=== PATIENT | female | born 1975 | race Caucasian/White ===

== ENCOUNTER 2023-04-09 16:47 | Emergency (ER) | payer OTHER, SELFPAY ==
[2023-04-09] VITALS (48 sets, daily range): BP systolic 133–218; BP diastolic 89–125; PULSE 84–117; RESP 12–23; TEMP 36.8; O2SAT 80–98; BMI 31.6
--- NOTE | 2023-04-09 16:55 | ECG_ITS ---
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
--- NOTE | 2023-04-09 16:56 | ED_ITS ---
Documented by User: BRITTANY Mcclellan 04/09/23 21:28 HPI - Chest Pain General Chief Complaint: Chest Pain Stated Complaint: CHEST PAIN Time Seen by Provider: 04/09/23 16:48 Related Data Home Medications Medication Instructions Recorded Confirmed ibuprofen 200 mg tablet (Advil) 200 mg PO Q8H PRN fever or pain 04/09/23 04/09/23 metformin 500 mg tablet,extended 500 mg PO BID 04/09/23 04/09/23 release 24 hr Allergies Allergy/AdvReac Type Severity Reaction Status Date / Time No Known Drug Allergies Allergy Verified 04/09/23 16:58 PFSH PFS Social History Smoking status: Current every day smoker Exam Constitutional Vital Signs, click to edit/add: Last Vital Signs Temp 98.3 F 04/09/23 16:59 Pulse 98 H 04/10/23 02:40 Resp 14 04/10/23 02:00 BP 159/94 H 04/10/23 02:30 Pulse Ox 85 L 04/10/23 02:40 O2 Del Method Room Air 04/09/23 16:59 Course Vital Signs Vital signs: Vital Signs Pulse Oximetry 85 L 04/09/23 16:51 Temperature 98.3 F 04/09/23 16:59 Pulse Rate 98 H 04/10/23 02:40 Respiratory Rate 14 04/10/23 02:00 Blood Pressure 159/94 H 04/10/23 02:30 Pulse Oximetry 85 L 04/10/23 02:40 Oxygen Delivery Method Room Air 04/09/23 16:59 MDM - Chest Pain MDM Narrative Medical decision making narrative: patient was given aspirin, nitroglycerin. She reports improvement of the chest pain but continues to have bilateral jaw pain. Her blood pressure improved with nitroglycerin. Lab studies show the patient has normal kidney function, normal blood counts but elevated troponin at 248. BNP is also elevated although the patient has no clinical history concerning for congestive heart failure exacerbation. I discussed these abnormal results with the patient and her daughter at bedside, discussed the need for transfer to tertiary care facility with cardiology available, patient would like to go to [facility]. Heparin drip started for non-STEMI. we contacted [facility], the nursing supervisor [employer] states they were on a bed wait list, they will not connect us with the hospitalist for an acceptance until a bed is potentially available. I discussed this with the patient and she would still like to pursue a transfer to [facility] even if it means waiting for a bed until the morning. She understands this. She does not wish to be transferred to [place] or [place]. Her blood pressure improved in the Emergency Room, she was given additional labetalol for blood pressure control, she had no significant chest pain in the Emergency Room. Repeat troponin is stable with no significant elevation. At this time, the patient will be kept on a heparin drip and provided with pain and blood pressure control until a bed becomes available at [facility] and we can speak with hospitalist for acceptance. Medical Records Data Attestation: I reviewed the patient's medical records. Lab Data Attestation: I reviewed the patient's lab results. Labs: Lab Results 04/09/23 04/09/23 04/10/23 Range/Units 17:00 19:44 03:45 WBC 10.0 (4.0-11.0) 10^3/uL RBC 4.26 (4.20-5.40) 10^6/uL Hgb 13.3 (12.0-16.0) g/dL Hct 39.2 (36.0-48.0) % MCV 92.0 (81.0-99.0) fL MCH 31.2 (26.7-34.0) pg MCHC 33.9 (29.9-35.2) g/dL RDW 13.6 (11.0-15.0) % Plt Count 259 (150-450) 10^3/uL MPV 10.6 (9.5-13.5) fL Neut % (Auto) 57.0 (43.0-75.0) % Lymph % (Auto) 37.0 (20.5-60.0) % [place] % (Auto) 4.4 (1.7-12.0) % Eos % (Auto) 0.9 (0.9-7.0) % Baso % (Auto) 0.4 (0.2-2.0) % Neut # (Auto) 5.7 (1.4-6.5) 10^3/uL Lymph # (Auto) 3.7 (1.2-3.8) 10^3/uL [place] # (Auto) 0.4 (0.3-0.8) 10^3/uL Eos # (Auto) 0.1 (0.0-0.7) 10^3/uL Baso # (Auto) 0.0 (0.0-0.1) 10^3/uL Abs Immat Gran (auto) 0.03 (0.00-0.03) 10^3/uL Imm/Tot Granulo (auto) 0.3 (0.0-0.5) % PT 10.0 (9.0-11.6) sec INR 0.94 APTT 27.3 (22.3-36.2) sec PTT (Heparin Absorb) 29.2 L* (48.2-68.6) sec D-Dimer <0.19 (<=0.59) mg/L FEU Sodium 134 L (136-145) mmol/L Potassium 3.6 (3.5-5.1) mmol/L Chloride 99 (98-107) mmol/L Carbon Dioxide 27.1 (21.0-32.0) mmol/L Anion Gap 11.5 BUN 18.0 (7.0-18.0) mg/dL Creatinine 0.83 (0.55-1.02) mg/dL Est GFR ( Amer) >60 (>=60) Est GFR (Non-Af Amer) >60 (>=60) BUN/Creatinine Ratio 21.7 Glucose 252 H (74-106) mg/dL Calcium 8.9 (8.5-10.1) mg/dL Total Bilirubin 0.7 (0.2-1.0) mg/dL AST 35 (15-37) U/L ALT 48 (14-59) U/L Alkaline Phosphatase 115 (46-116) U/L Total Creatine Kinase 46 (26-192) U/L CK-MB (CK-2) 1.23 (<=3.60) ng/mL Troponin I High Sens 248.8 H* 256.3 H* (4.0-51.3) pg/mL NT-Pro-B Natriuret Pep 1327.0 H* (<=450.0) pg/mL Total Protein 7.7 (6.4-8.2) g/dL Albumin 3.7 (3.4-5.0) g/dL Globulin 4.0 g/dL Albumin/Globulin Ratio 0.9 Imaging Data Chest x-ray: Attestation: I have reviewed the pertinent imaging results. Radiologist's impression: Procedure: XR chest 1V EXAM: XR chest 1V HISTORY: Chest pain. COMPARISON: PA and lateral views of the chest dated 10/27/2018. TECHNIQUE: AP erect portable chest radiograph. FINDINGS: The trachea is midline. There is mild prominence of the cardiac silhouette. The hilar shadows are stable and unremarkable. There is mild discoid atelectasis within the left lower chest. There is no consolidation or infiltrate. There is no pleural effusion or pulmonary vascular congestion. There is no pneumothorax or osseous abnormality. IMPRESSION: Mild enlargement of the cardiac silhouette. Mild discoid atelectasis within the left lower chest. Electronically authenticated by: JOSE LAGOS Date: 04/09/2023 18:07 ECG Data Attestation: I personally reviewed and interpreted this ECG as follows: (sinus tachycardia with no acute ST elevation or ectopy. EKG reviewed by attending physician) Heart Score History: Moderately Suspicious ECG: Normal Age: >45-<65 years Risk Factors: >3 Risk Factors/ HX of CAD:2 Troponin: >3X Normal Limit Total Heart Score Recommendations & Risks:: 6 Critical Care Time Critical Care Time Total Critical Care Time: 35 Discharge Plan Discharge Chief Complaint: Chest Pain Clinical Impression: Non-ST elevated myocardial infarction (non-STEMI), Chest pain, Hypertensive urgency Patient Disposition: [facility] Time of Disposition Decision: 21:28 Discharge Location: [facility] Mode of Transportation: EMS Documented by User: Edna Maki MD 04/10/23 04:21 HPI - Chest Pain General Chief Complaint: Chest Pain Stated Complaint: CHEST PAIN Time Seen by Provider: 04/09/23 16:48 History of Present Illness HPI narrative: This 47-year-old female with a history of diabetes, hyperlipidemia, hypertension and tobacco use who is moderately overweight was evaluated in the emergency department for 3 days of jaw pain and eventual chest pain. 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 She was sent to the emergency department for evaluation. Upon arrival an EKG was performed that was a sinus tachycardia at [address] changes. An IV was placed and routine cardiac labs ordered. The patient was noted to have an elevated troponin. She was medicated with aspirin, one nitroglycerin and 40 mg of IV labetalol for her elevated blood pressure. At one point she complained of ongoing chest pain was given 4 mg of morphine and Zofran. She has remained in the emergency department overnight awaiting transfer arrangements at [facility], where she requested to be transferred to. She is currently on a heparin drip and has remained chest pain-free throughout the night. The case was discussed with Dr. Hall, hospitalist at [facility] and she is accepted for transfer. Related Data Home Medications Medication Instructions Recorded Confirmed ibuprofen 200 mg tablet (Advil) 200 mg PO Q8H PRN fever or pain 04/09/23 04/09/23 metformin 500 mg tablet,extended 500 mg PO BID 04/09/23 04/09/23 release 24 hr Allergies Allergy/AdvReac Type Severity Reaction Status Date / Time No Known Drug Allergies Allergy Verified 04/09/23 16:58 PFSH PFSH Social History Smoking status: Current every day smoker Exam Constitutional Vital Signs, click to edit/add: Last Vital Signs Temp 98.3 F 04/09/23 16:59 Pulse 98 H 04/10/23 02:40 Resp 14 04/10/23 02:00 BP 159/94 H 04/10/23 02:30 Pulse Ox 85 L 04/10/23 02:40 O2 Del Method Room Air 04/09/23 16:59 Course Vital Signs Vital signs: Vital Signs Pulse Oximetry 85 L 04/09/23 16:51 Temperature 98.3 F 04/09/23 16:59 Pulse Rate 98 H 04/10/23 02:40 Respiratory Rate 14 04/10/23 02:00 Blood Pressure 159/94 H 04/10/23 02:30 Pulse Oximetry 85 L 04/10/23 02:40 Oxygen Delivery Method Room Air 04/09/23 16:59 MDM - Chest Pain Lab Data Labs: Lab Results 04/09/23 04/09/23 04/10/23 Range/Units 17:00 19:44 03:45 WBC 10.0 (4.0-11.0) 10^3/uL RBC 4.26 (4.20-5.40) 10^6/uL Hgb 13.3 (12.0-16.0) g/dL Hct 39.2 (36.0-48.0) % MCV 92.0 (81.0-99.0) fL MCH 31.2 (26.7-34.0) pg MCHC 33.9 (29.9-35.2) g/dL RDW 13.6 (11.0-15.0) % Plt Count 259 (150-450) 10^3/uL MPV 10.6 (9.5-13.5) fL Neut % (Auto) 57.0 (43.0-75.0) % Lymph % (Auto) 37.0 (20.5-60.0) % [place] % (Auto) 4.4 (1.7-12.0) % Eos % (Auto) 0.9 (0.9-7.0) % Baso % (Auto) 0.4 (0.2-2.0) % Neut # (Auto) 5.7 (1.4-6.5) 10^3/uL Lymph # (Auto) 3.7 (1.2-3.8) 10^3/uL [place] # (Auto) 0.4 (0.3-0.8) 10^3/uL Eos # (Auto) 0.1 (0.0-0.7) 10^3/uL Baso # (Auto) 0.0 (0.0-0.1) 10^3/uL Abs Immat Gran (auto) 0.03 (0.00-0.03) 10^3/uL Imm/Tot Granulo (auto) 0.3 (0.0-0.5) % PT 10.0 (9.0-11.6) sec INR 0.94 APTT 27.3 (22.3-36.2) sec PTT (Heparin Absorb) 29.2 L* (48.2-68.6) sec D-Dimer <0.19 (<=0.59) mg/L FEU Sodium 134 L (136-145) mmol/L Potassium 3.6 (3.5-5.1) mmol/L Chloride 99 (98-107) mmol/L Carbon Dioxide 27.1 (21.0-32.0) mmol/L Anion Gap 11.5 BUN 18.0 (7.0-18.0) mg/dL Creatinine 0.83 (0.55-1.02) mg/dL Est GFR ( Amer) >60 (>=60) Est GFR (Non-Af Amer) >60 (>=60) BUN/Creatinine Ratio 21.7 Glucose 252 H (74-106) mg/dL Calcium 8.9 (8.5-10.1) mg/dL Total Bilirubin 0.7 (0.2-1.0) mg/dL AST 35 (15-37) U/L ALT 48 (14-59) U/L Alkaline Phosphatase 115 (46-116) U/L Total Creatine Kinase 46 (26-192) U/L CK-MB (CK-2) 1.23 (<=3.60) ng/mL Troponin I High Sens 248.8 H* 256.3 H* (4.0-51.3) pg/mL NT-Pro-B Natriuret Pep 1327.0 H* (<=450.0) pg/mL Total Protein 7.7 (6.4-8.2) g/dL Albumin 3.7 (3.4-5.0) g/dL Globulin 4.0 g/dL Albumin/Globulin Ratio 0.9 Heart Score Total Heart Score Recommendations & Risks:: 6 Discharge Plan Discharge Chief Complaint: Chest Pain Clinical Impression: Non-ST elevated myocardial infarction (non-STEMI), Chest pain, Hypertensive urgency Patient Disposition: [facility] Time of Disposition Decision: 21:28 Discharge Location: [facility] Mode of Transportation: EMS
[2023-04-09 17:09] LABS: Basophils Percent Auto 0.4 % (0.2-2.0); Eosinophils Absolute Auto 0.1 10^3/uL (0.0-0.7); Eosinophils Percent Auto 0.9 % (0.9-7.0); Hematocrit 39.2 % (36.0-48.0); Hemoglobin 13.3 g/dL (12.0-16.0); Immature Granulocytes Abs Auto 0.03 10^3/uL (0.00-0.03); Immature Granulocytes Pct Auto 0.3 % (0.0-0.5); Lymphocytes Absolute Auto 3.7 10^3/uL (1.2-3.8); Mean Corpuscular HGB Conc 33.9 g/dL (29.9-35.2); Mean Corpuscular Hemoglobin 31.2 pg (26.7-34.0); Mean Platelet Volume 10.6 fL (9.5-13.5); Monocytes Absolute Auto 0.4 10^3/uL (0.3-0.8); Monocytes Percent Auto 4.4 % (1.7-12.0); Neutrophils Absolute Auto 5.7 10^3/uL (1.4-6.5); Platelet Count 259 10^3/uL (150-450); Red Blood Count 4.26 10^6/uL (4.20-5.40); Red Cell Distribution Width 13.6 % (11.0-15.0)
[2023-04-09] MEDS: ASPIRIN 81 MG TAB.CHEW 162 MG PO (17:16)
[2023-04-09] MEDS: NITROGLYCERIN 0.4 MG BOTTLE PO (17:16)
[2023-04-09] MEDS: 0.9 % SODIUM CHLORIDE 1,000 ML 1000 ML IV (17:16)
[2023-04-09 17:25] LABS: INR 0.94; Partial Thromboplastin Time 27.3 sec (22.3-36.2)
[2023-04-09 17:26] LABS: D Dimer <0.19 mg/L FEU (<=0.59)
[2023-04-09] MEDS: ONDANSETRON PF 4 MG/2 ML VIAL IV ×2 (17:29→22:36)
[2023-04-09 17:30] LABS: Alanine Aminotransferase 48 U/L (14-59); Albumin Globulin Ratio 0.9; Albumin Level 3.7 g/dL (3.4-5.0); Alkaline Phosphatase 115 U/L (46-116); Anion Gap 11.5; Aspartate Amino Transferase 35 U/L (15-37); BUN Creatinine Ratio 21.7; Bilirubin Total 0.7 mg/dL (0.2-1.0); Calcium 8.9 mg/dL (8.5-10.1); Carbon Dioxide 27.1 mmol/L (21.0-32.0); Chloride 99 mmol/L (98-107); Estimated GFR (African America >60 (>=60); Estimated GFR (Non-African Ame >60 (>=60); Glucose 252 mg/dL (74-106); Potassium 3.6 mmol/L (3.5-5.1); Sodium 134 mmol/L (136-145); Total Protein 7.7 g/dL (6.4-8.2)
--- NOTE | 2023-04-09 17:34 | XR_ITS ---
The [address] [address] Patient Name: MIKAYLA TERRY MRN: [id number] date: 1975 Sex: F Assigned Patient Location: ER Current Patient Location: ER Accession/Order Number: [id number] Exam Date: 04/09/2023 17:50 Report Date: 04/09/2023 18:07 At the request of: LASHAY GIFFORD Procedure: XR chest 1V EXAM: XR chest 1V HISTORY: Chest pain. COMPARISON: PA and lateral views of the chest dated 10/27/2018. TECHNIQUE: AP erect portable chest radiograph. FINDINGS: The trachea is midline. There is mild prominence of the cardiac silhouette. The hilar shadows are stable and unremarkable. There is mild discoid atelectasis within the left lower chest. There is no consolidation or infiltrate. There is no pleural effusion or pulmonary vascular congestion. There is no pneumothorax or osseous abnormality. XR/XR chest 1V IMPRESSION: Mild enlargement of the cardiac silhouette. Mild discoid atelectasis within the left lower chest. Electronically authenticated by: JOSE LAGOS Date: 04/09/2023 18:07
[2023-04-09 17:35] LABS: Troponin I High Sensitivity 248.8 pg/mL (4.0-51.3)
[2023-04-09] MEDS: HEPARIN SODIUM,PORCINE/D5W 25,000 UNIT/500 ML IV.SOLN 20.684 UNIT IV (17:54)
[2023-04-09] MEDS: LABETALOL HCL 20 MG/4 ML SYRINGE IVP (19:45)
[2023-04-09 20:16] LABS: Creatine Kinase 46 U/L (26-192); Creatine Kinase MB 1.23 ng/mL (<=3.60)
[2023-04-09 20:17] LABS: Troponin I High Sensitivity 256.3 pg/mL (4.0-51.3)
[2023-04-09] MEDS: MORPHINE SULFATE 4 MG/ML VIAL IV (22:36)
[2023-04-10] VITALS (55 sets, daily range): BP systolic 141–181; BP diastolic 91–123; PULSE 89–106; RESP 6–21; O2SAT 70–98
[2023-04-10 04:11] LABS: PTT Heparin Monitor 29.2 sec (48.2-68.6)
== END 2023-04-10 09:32 | disposition short-term general hospital (02) ==
PROVIDERS: Physician Assistant; Emergency Provider Emergency Medicine
DX: I21.4 Non-ST elevation (NSTEMI) myocardial infarction (principal); R07.9 Chest pain, unspecified; I16.0 Hypertensive urgency; Z79.899 Other long term (current) drug therapy; Z79.84 Long term (current) use of oral hypoglycemic drugs; F17.210 Nicotine dependence, cigarettes, uncomplicated
CPT/HCPCS: 36415; 71045; 80053; 82550; 82553; 83880; 84484; 85025; 85378; 85610; 85730; 93005; 96365; 96366; 96375; 96376; 99285

== ENCOUNTER 2023-05-03 10:32 | Outpatient (OUT) | payer OTHER, SELFPAY ==
[2023-05-03 11:39] LABS: Free T4 0.94 ng/dL (0.76-1.46)
[2023-05-03 11:54] LABS: Estimated Average Glucose 206 mg/dL; Glycohemoglobin A1C 8.8 % (4.5-6.2)
[2023-05-03 12:03] LABS: Thyroid Stimulating Hormone 2.207 uIU/mL (0.358-3.740)
== END 2023-05-03 10:33 | disposition home or self-care (01) ==
PROVIDERS: PCP Nurse Practitioner; Visit Provider Nurse Practitioner
DX: E03.9 Hypothyroidism, unspecified (principal); E11.8 Type 2 diabetes mellitus with unspecified complications
CPT/HCPCS: 36415; 83036; 84439; 84443

== ENCOUNTER 2023-05-31 07:04 | Outpatient (RCR) | payer OTHER, SELFPAY ==
--- NOTE | 2023-05-24 11:42 | CR1_ITS ---
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
== END 2023-05-31 17:05 | disposition home or self-care (01) ==
LOC: CR 07:04
PROVIDERS: PCP Nurse Practitioner
DX: Z98.61 Coronary angioplasty status (principal); I25.5 Ischemic cardiomyopathy; I25.2 Old myocardial infarction
CPT/HCPCS: 93798

== ENCOUNTER 2023-07-06 10:18 | Outpatient (OUT) | payer OTHER, SELFPAY ==
--- OUTSIDE RECORDS SUMMARY | 2023-07-06 10:22 | XMS_ITS | CCD ---
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 Name Role Phone DR SHILPA LEWIS Admitting Unavailable DR SHILPA LEWIS Attending Unavailable DR SHILPA LEWIS Primary Care Unavailable DR SHILPA LEWIS Consulting Unavailable MD Shilpa Lewis Primary Care Provider [phone] MD Florentino Kenyon Admit Provider MD Florentino Kenyon Attending Provider [phone] Stephanie Sweet Unavailable Florentino Kenyon Attending Unavailable Shilpa Lewis Primary Care Unavailable Stephanie Sweet Consulting Unavailable Florentino Kenyon Admitting Unavailable Medications Current Medications Medication Drug Class(es) Dates Sig (Normalized) Sig (Original) aspirin 81 mg delayed release oral tablet (5 sources) Platelet Aggregation Inhibitor, Nonsteroidal Anti-inflammatory Drug Start: 04-12-2023 take 81 mg by mouth once daily Aspirin Active 81 MG PO Daily April 12, 2023 12:00am atorvastatin 80 mg oral tablet (5 sources) HMG-CoA Reductase Inhibitor Start: 04-12-2023 take 80 mg by mouth once daily in the evening Atorvastatin Active 80 MG PO Every evening April 12, 2023 12:00am busPIRone hydrochloride 5 mg oral tablet (4 sources) take 1 tablet by mouth every twelve hours busPIRone HCl 5 MG 1 tablet Orally Twice a day Active carvedilol 6.25 mg oral tablet (5 sources) alpha-Adrenergic Raina, beta-Adrenergic Raina Start: 04-12-2023 take 6.25 mg by mouth twice daily at mealtime Carvedilol Active 6.25 MG PO Twice daily with meals April 12, 2023 12:00am 24 hr isosorbide mononitrate 30 mg extended release oral tablet (4 sources) Nitrate Vasodilator Start: 05-01-2023 take 1 tablet by mouth every twenty-four hours Isosorbide Mononitrate ER 30 MG 1 tablet in the morning Orally Once a day for 90 days Apr, Active losartan potassium 25 mg oral tablet (5 sources) Angiotensin 2 Receptor Raina Start: 05-08-2023 take 1 tablet by mouth every twenty-four hours Losartan Potassium 25 MG 1 tablet Orally Once a day for 30 days May, Active Start: 04-12-2023 take 50 mg by mouth once daily in the morning Losartan Active 50 MG PO Every morning April 12, 2023 12:00am 24 hr metFORMIN hydrochloride 500 mg extended release oral tablet (5 sources) Biguanide Start: 04-10-2023 take 500 mg by mouth twice daily Metformin Active 500 MG PO Twice daily April 10, 2023 12:00am Start: 04-02-2022 take 1 tablet by juan m th twice daily Metformin 500mg metFORMIN 500mg, 1 (one) Tablet two times daily # 180, 04/02/2022, Ref. x3. Active oral two times daily for 0 *Reorder from [employer] for eRx and Interaction Alerts* Mar, Active nitroglycerin 0.4 mg sublingual tablet (5 sources) Nitrate Vasodilator Start: 04-12-2023 Nitroglyce rin Active 0.4 MG SUBLINGUAL Q5M April 12, 2023 12:00am do not exceed 3 doses per episode Nitroglycerin 0. 4 MG as directed Sublingual Active spironolactone 25 mg oral tablet (5 sources) Aldosterone Antagonist Start: 04-12-2023 take 25 mg by mouth once daily Spironolactone Active 25 MG PO Daily April 12, 2023 12:00am ticagrelor 90 mg oral tablet (5 sources) Start: 04-12-2023 take 1 tablet by mouth twice daily Ticagrelor (Brilinta) 90 mg Tablet Active 90 MG PO Twice daily April 12, 2023 12:00am Completed/Discontinued Medications Medication Drug Class(es) Dates Sig (Normalized) Sig (Original) amoxicillin 875 mg / clavulanate 125 mg oral tablet (4 sources) Penicillin-class Antibacterial Start: 03-12-2022 take 1 tablet by mouth twice daily as needed Amoxicillin-Pot Clavulanate 875-125 MG amoxicillin-pot clavulanate 875-125mg, 1 (one) Tablet two times daily # 20, 03/12/2022, No Refill. Active Oral two times daily for 0 Mar, Not-Taking/PRN levothyroxine (4 sources) l-Thyroxine Start: 05-09-2022 take 1 tablet by mouth once daily as needed Levothyroxine 75mcg levothyroxine 75mcg, 1 (one) Tablet daily # 90, 05/09/2022, No Refill. Active oral daily for 0 *Reorder from Med[employer]pan for eRx and Interaction Alerts* May, Not-Taking/PRN Start: 05-09-2022 take 1 tablet by juan m th once daily Levothyroxine 75mcg levothyroxine 75mcg, 1 (one) Tablet daily # 90, 05/09/2022, No Refill. Active oral daily for 0 *Reorder from Med[employer]pan for eRx and Interaction Alerts* May, Not-Taking Problems Active Problems Problem Classification Problem Date Documented Da te Episodic/Chronic Acute myocardial infarction (3 sources) Myocardial infarction; Translations: [Non-ST elevation (NSTEMI) myocardial infarction] Onset: 04-10-2023 04-10-2023 Chronic Anxiety disorders (4 sources) Anxiety state; Translations: [Anxiety state, unspecified] Onset: 11-19-2018 Chronic Congestive heart failure; nonhypertensive (4 sources) Systolic heart failure; Translations: [Unspecified systolic (congestive) heart failure] Chronic Coronary atherosclerosis and other heart disease (11 sources) History of non-ST segment elevation myocardial infarction; Translations: [Old myocardial infarction] Chronic Coronary atherosclerosis and other heart disease (5 sources) Patient post percutaneous transluminal coronary angioplasty; Translations: [Coronary angioplasty status] Episodic Diabetes mellitus with complications (5 sources) Type 2 diabetes mellitus with hyperglycemia; Translations: [Hyperglycemia due to type 2 diabetes mellitus] Onset: 01-07-2022 Chronic Diabetes mellitus without complication (7 sources) Type 2 diabetes mellitus; Translations: [Type 2 diabetes mellitus without complications] Onset: 08-16-2017 04-10-2023 Chronic Diseases of mouth; excluding dental (4 sources) Recurrent aphthous stomatitis; Translations: [Recurrent oral aphthae] Episodic Disorders of lipid metabolism (7 sources) Hyperlipidemia; Translations: [Hyperlipidemia, unspecified] Onset: 10-19-2015 04-10-2023 Chronic Essential hypertension (3 sources) Hypertensive disorder; Translations: [Essential (primary) hypertension] Onset: 04-10-2023 04-10-2023 Chronic Hemorrhoids (4 sources) Hemorrhoids; Translations: [Unspecified hemorrhoids] Episodic Other circulatory disease (4 sources) Elevated blood-pressure reading without diagnosis of hypertension; Translations: [Elevated blood-pressure reading, without diagnosis of hypertension] Episodic Other connective tissue disease (4 sources) Diastasis of muscle; Translations: [Separation of muscle (nontraumatic), other site] Episodic Other nervous system disorders (4 sources) Pa's palsy; Translations: [Pa's palsy] Episodic Other non-traumatic joint disorders (4 sources) Joint effusion of ankle AND/OR foot; Translations: [Effusion, left ankle] Episodic Other nutritional; endocrine; and metabolic disorders (4 sources) Body mass index 30+ - obesity; Translations: [Body mass index 36.0-36.9, adult] Onset: 08-16-2017 Chronic Other nutritional; endocrine; and metabolic disorders (4 sources) Obese class I; Translations: [Body mass index (BMI) 31.0-31.9, adult] Chronic Other nutritional; endocrine; and metabolic disorders (4 sources) Morbid obesity; Translations: [Morbid (severe) obesity due to excess calories] Onset: 01-15-2018 Chronic Other upper respiratory infections (4 sources) Chronic sinusitis; Translations: [Chronic sinusitis, unspecified] Chronic Ovarian cyst (4 sources) Cyst of right ovary; Translations: [Unspecified ovarian cyst, right side] Episodic Residual codes; unclassified (1 source) Obstructive sleep apnea syndrome; Translations: [Obstructive sleep apnea (adult) (pediatric)] 04-10-2023 Chronic Residual codes; unclassified (2 sources) Obstructive sleep apnea (adult) (pediatric); Translations: [Obstructive sleep apnea (adult)(pediatric)] Onset: 04-10-2023 04-12-2023 Chronic Residual codes; unclassified (1 source) Harmful pattern of use of nicotine; Translations: [Tobacco use] 04-10-2023 Episodic Residual codes; unclassified (2 sources) Tobacco use; Translations: [Tobacco use disorder] Onset: 04-10-2023 04-12-2023 Episodic Thyroid disorders (8 sources) Hypothyroidism, unspecified; Translations: [Hypothyroidism] Onset: 01-04-2022 Chronic Unclassified (4 sources) Acute candidiasis of vulva and vagina; Translations: [Acute candidiasis of vulva and vagina] Viral infection (4 sources) Herpesviral vesicular dermatitis; Translations: [Herpesviral vesicular dermatitis] Episodic Viral infection (4 sources) Disease caused by 2019-nCoV; Translations: [COVID-19] Past or Other Problems Problem Classification Problem Date Documented Date Episodic/Chronic Abdominal pain (4 sources) Epigastric pain; Translations: [Epigastric pain] Onset: 11-27-2017 Episodic Acute and chronic tonsillitis (4 sources) Acute tonsillitis; Translations: [Acute tonsillitis due to other specified organisms] Onset: 01-15-2018 Episodic Bacterial infection; unspecified site (4 sources) Bacterial infectious disease; Translations: [Bacterial infection, unspecified, in conditions classified elsewhere and of unspecified site] Onset: 01-15-2018 Episodic Noninfectious gastroenteritis (4 sources) Non-infective enteritis and colitis; Translations: [Noninfective gastroenteritis and colitis, unspecified] Onset: 08-16-2017 Episodic Other connective tissue disease (4 sources) Pain in limb; Translations: [Pain in left toe(s)] Onset: 10-08-2017 Episodic Other upper respiratory infections (4 sources) Acute maxillary sinusitis; Translations: [Acute recurrent maxillary sinusitis] Onset: 07-26-2016 Episodic Otitis media and related conditions (4 sources) Eustachian tube salpingitis; Translations: [Unspecified Eustachian salpingitis, left ear] Onset: 11-19-2018 Episodic Results Test Name Value Interpretation Reference Range Facility ECG 12 lead ECGon 04-12-2023 ECG 12 lead ECG [facility] [place] [address] Electrocardiograph Report Signed Patient: Mikayla Mitchell MR#: [id number] 93 : 1975 Acct:[id number] Age/Sex: 47 / F ADM Date: 04/10/23 Loc: Room: [address] [place] [address] Type: DIS IN Attending Dr: Florentino Kenyon MD Ordering Provider: W Carlos Irish, DO Date of Service: 04/12/2303/25/500 ECG/ECG 12 lead ECG: Post Angioplasty Procedure in AM Copies to: Test Reason : Blood Pressure : / mmHG Vent. Rate : 086 BPM Atrial Rate : 086 BPM P-R Int : 192 ms QRS Dur : 106 ms QT Int : 410 ms P-R-T Axes : 059 079 113 degrees QTc Int : 490 ms Normal sinus rhythm Poor anterior R wave progression T wave abnormality, consider lateral ischemia Prolonged QT Abnormal ECG When compared with ECG of 10-APR-2023 11:53, No significant change was found Confirmed by DARRYL KEE MD ([id number]) on 04/12/2023 10:17:27 PM Referred By: Electronically Signed By:DARRYL KEE MD Transcribed By: MUS Signed By Darryl Kee MD [id number] [facility] Glucose Glucometer (BldC) [M ass/Vol]Ordered By: Florentino Kenyon on 04-12-2023 Glucose [Mass/Vol] 226 mg/dL [facility] Comment on above: Random Glucose Refer ence Range is dependent on time and content of last meal. Glucose of more than 200 mg/dL in a nonstressed, ambulatory subject supports the diagnosis of Diabetes Mellitus. Glucose Poct Glucometerson 1 06-12-2022 Glucose [Mass/Vol] 226 mg/dL Normal [facility] Comment on above: Result Comment: [place] Glucose Reference Range is dependent on time and content of last meal. Glucose of more than 200 mg/dL in a nonstressed, ambulatory subject supports the diagnosis of Diabetes Mellitus. PERFORMED BY: [facility] [address] [place] [address] PATHOLOGIST COMPREHENSIVE ADVISOR ELPIDIO DUMONT M.D. Performed By: #### G LULS #### Point of Care testing , Glucose [Mass/Vol] 219 mg/dL Normal [facility] Comment on above: Result Comment: [place] Glucose Reference Range is dependent on time and content of last meal. Glucose of more than 200 mg/dL in a nonstressed, ambulatory subject supports the diagnosis of Diabetes Mellitus. PERFORMED BY: [facility] [address] [place] [address] PATHOLOGIST COMPREHENSIVE ADVISOR ELPIDIO DUMONT M.D. Performed By: #### G LULS #### Point of Care testing , Troponin I High Sensitivityo n 04-12-2023 Troponin I High Sensitivity 3417.1 pg/mL Off scale high 0.0-15.0 [facility] Comment on above: Result Comment: Crit ical Result : Called to and read back by: CLAYTON MCCLOUD at: 04/12/2023 06:08:29 by:[id number] PERFORMED BY: [facility] [address] [place] [address] PATHOLOGIST COMPREHENSIVE ADVISOR ELPIDIO DUMONT M.D. Performed By: #### G LULS #### Point of Care testing , Troponin I.cardiac [Mass/vol ume] in Serum or Plasma by Detection limit <= 0.01 ng/Ordered By: Magali Cortez on 04-12-2023 Troponin I.cardiac DL <= 0.01 ng/mL [Mass/Vol] 3417.1 pg/mL 0.0-15.0 [facility] Comment on above: Critical Result : Ca lled to and read back by: CLAYTON MCCLOUD at: 04/12/2023 06:08:29 by:[id number] Activated partial thrombopla stin time (aPTT) in platelet poor plasma by coagulation aOrdered By: Stephanie Sweet on 04-11-2023 aPTT Coag (PPP) [Time] 29.3 s 25.1-36.5 [facility] Comment on above: A hematocrit value g reater than 55% may lead to inaccurate results in coagulation testing. Patients having hematocrit values >55% require a special collection tube for coagulation studies. Please contact the laboratory at [phone] for redraw instructions. Basophils Auto (Bld) [#/Vol] Ordered By: Stephanie Sweet on 04-11-2023 Basophils (Bld) [#/Vol] 0.0 10*3/uL 0.0-0.2 [facility] Basophils/100 WBC Auto (Bld) Ordered By: Stephanie Sweet on 04-11-2023 Basophils/100 WBC (Bld) 0.5 % . [facility] Blood Urea Nitrogenon 2022 Urea nitrogen [Mass/Vol] 11 mg/dL Normal 7-25 [facility] Comment on above: Performed By: #### C VARUN Munguia TROP #### [facility] [address] [id number] [facility] Carbon dioxide, total [Moles /volume] in Serum or PlasmaOrdered By: Stephanie Sweet on 04-11-2023 CO2 [Moles/Vol] 26.7 mmol/L 21.0-31.0 [facility] Chloride [Moles/volume] in S ambika or PlasmaOrdered By: Stephanie Sweet on 04-11-2023 Chloride [Moles/Vol] 101 mmol/L 98-107 [facility] Coagulation Profileon 2022 aPTT Coag (Bld) [Time] 29.3 s Normal 25.1-36.5 [facility] Comment on above: Result Comment: A he matocrit value greater than 55% may lead to inaccurate results in coagulation testing. Patients having hematocrit values >55% require a special collection tube for coagulation studies. Please contact the laboratory at [phone] for redraw instructions. PERFORMED BY: [facility] [address] [place] [address] PATHOLOGIST COMPREHENSIVE ADVISOR ELPIDIO DUMONT M.D. Performed By: #### G EMILIA #### Point of Care testing , INR Coag (PPP) [Relative time] 1.0 {INR} Normal [facility] Comment on above: Result Comment: INR Therapeutic Range A) Pre- and Peroperative OAT started two weeks before surgery. NOT HIP SURGERY: 1.5 - 2.5 HIP SURGERY: 2 - 3 B) Primary and secondary prevention of venous THROMBOSIS: 2 - 3 C) Active venous thrombosis, pulmonary embolism and prevention of recurrent venous thrombosis: 2 - 3 D) Prevention of arterial thromboembolism including patients with mechanical heart valves: 3 - 4.5 Performed By: #### G LULS #### Point of Care testing , PT Coag (PPP) [Time] 12.0 s Normal 9.0-12.9 [facility] Comment on above: Result Comment: A he matocrit value greater than 55% may lead to inaccurate results in coagulation testing. Patients having hematocrit values >55% require a special collection tube for coagulation studies. Please contact the laboratory at [phone] for redraw instructions. Performed By: #### G EMILIA #### Point of Care testing , Complete Blood Count Auto Di ffon 04-11-2023 Basophils (Bld) [#/Vol] 0.0 10*3/uL Normal 0.0-0.2 [facility] Comment on above: Result Comment: PERF ORMED BY: [place] [address] PATHOLOGIST COMPREHENSIVE ADVISOR ELPIDIO DUMONT M.D. Performed By: #### L YTES, CBC, BUN, CREAT #### [facility] [address] [place] [address] Basophils/100 WBC (Bld) 0.5 % Normal . [facility] Comment on above: Performed By: #### L YTES, CBC, BUN, CREAT #### [facility] [address] [place] [address] Eosinophils (Bld) [#/Vol] 0.1 10*3/uL Normal 0.0-0.45 [facility] Comment on above: Performed By: #### L YTES, CBC, BUN, CREAT #### [address] Eosinophils/100 WBC (Bld) 0.9 % Normal . [facility] Comment on above: Performed By: #### L YTES, CBC, BUN, CREAT #### [facility] [address] [place] [address] Erythrocyte distribution width (RBC) [Ratio] 14.5 % Normal 11.9-15.3 [facility] Comment on above: Performed By: #### L YTES, CBC, BUN, CREAT #### [facility] [address] [place] [address] Hematocrit (Bld) [Volume fraction] 35.1 % Normal 34.0-46.4 [facility] Comment on above: Performed By: #### L YTES, CBC, BUN, CREAT #### [address] Hemoglobin (Bld) [Mass/Vol] 11.8 g/dL Normal 11.8-15.4 [facility] Comment on above: Performed By: #### L YTES, CBC, BUN, CREAT #### [address] Lymphocytes (Bld) [#/Vol] 3.0 10*3/uL Normal 1.00-4.8 [facility] Comment on above: Performed By: #### L YTES, CBC, BUN, CREAT #### [address] Lymphocytes/100 WBC (Bld) 33.4 % Normal . [facility] Comment on above: Performed By: #### L YTES, CBC, BUN, CREAT #### [address] MCH (RBC) [Entitic mass] 30.7 pg Normal 24.7-34.3 [facility] Comment on above: Performed By: #### L YTES, CBC, BUN, CREAT #### [address] MCV (RBC) [Entitic vol] 91.1 fL Normal 80-100 [facility] Comment on above: Performed By: #### L YTES, CBC, BUN, CREAT #### [address] Mean Corpuscular HGB Conc 33.7 g/dL Normal 32.0-35.0 [facility] Comment on above: Performed By: #### L YTES, CBC, BUN, CREAT #### [address] Monocytes (Bld) [#/Vol] 0.5 10*3/uL Normal 0.0-0.8 [facility] Comment on above: Performed By: #### L YTES, CBC, BUN, CREAT #### [address] [place] [address] [place] Monocytes/100 WBC (Bld) 5.8 % Normal . [facility] Comment on above: Performed By: #### L YTES, CBC, BUN, CREAT #### [address] Neutrophils (Bld) [#/Vol] 5.3 10*3/uL Normal 1.8-7.7 [facility] Comment on above: Performed By: #### L YTES, CBC, BUN, CREAT #### [address] Neutrophils/100 WBC (Bld) 59.4 % Normal . [facility] Comment on above: Performed By: #### L YTES, CBC, BUN, CREAT #### [address] NRBC% 0.1 /100{WBC} Normal 0-0.5 [facility] Comment on above: Performed By: #### L YTES, CBC, BUN, CREAT #### [address] Platelet mean volume (Bld) [Entitic vol] 9.4 fL Normal 6.3-10.7 [facility] Comment on above: Performed By: #### L YTES, CBC, BUN, CREAT #### [place] [address] [place] Platelets (Bld) [#/Vol] 213 10*3/uL Normal 150-450 [facility] Comment on above: Performed By: #### L YTES, CBC, BUN, CREAT #### [place] [address] [place] RBC (Bld) [#/Vol] 3.85 10*6/uL Normal 3.60-5.00 [facility] [place] [facility] Comment on above: Performed By: #### L YTES, CBC, BUN, CREAT #### [place] [address] [place] WBC (Bld) [#/Vol] 9.0 10*3/uL Normal 3.8-11.6 [facility] Comment on above: Performed By: #### L YTES, CBC, BUN, CREAT #### [facility] [address] [place] [address] [place] Creatine Kinaseon 04-11-2023 CK [Catalytic activity/Vol] 186 U/L Normal [facility] Comment on above: Performed By: #### G LULS #### Point of Care testing , CK [Catalytic activity/Vol] 242 U/L High [facility] Comment on above: Performed By: #### C K, HS TROP #### [facility] [address] [place] [address] Creatine kinase [Enzymatic a ctivity/volume] in Serum or PlasmaOrdered By: Florentino Kenyon on 04-11-2023 CK [Catalytic activity/Vol] 186 U/L [facility] Creatinineon 04-11-2023 Creatinine [Mass/Vol] 0.47 mg/dL Low 0.60-1.20 [facility] Comment on above: Performed By: #### C K, HS TROP #### [facility] [address] [place] [address] [place] Creatinine Clr Calc Pharmacy 166.11 [facility] Comment on above: Result Comment: PERF ORMED BY: [place] [address] PATHOLOGIST COMPREHENSIVE ADVISOR ELPIDIO DUMONT M.D. Performed By: #### C K, HS TROP #### [facility] [address] [place] [address] [place] GFR/1.73 sq M.predicted MDRD (S/P/Bld) [Vol rate/Area] mL/min/{1.73_m2} [facility] Comment on above: Performed By: #### C K, HS TROP #### [facility] [address] [place] [address] [place] Creatinine [Mass/volume] in Serum or PlasmaOrdered By: Stephanie Sweet on 04-11-2023 Creatinine [Mass/Vol] 0.47 mg/dL 0.60-1.20 [facility] ECG 12 lead ECGon 04-11-2023 ECG 12 lead ECG [facility] [place] [address] [place] [address] Electrocardiograph Report Signed Patient: Mikayla Mitchell MR#: [id number] 93 : 1975 Acct:[id number] Age/Sex: 47 / F ADM Date: 04/10/23 Loc: Room: [address] [place] [address] Type: DIS IN Attending Dr: Florentino Kenyon MD Ordering Provider: Magali Cortez DO Date of Service: 04/11/2302/23/1442 ECG/ECG 12 lead ECG: Post Angioplasty Procedure Copies to: Test Reason : Blood Pressure : / mmHG Vent. Rate : 088 BPM Atrial Rate : 088 BPM P-R Int : 206 ms QRS Dur : 102 ms QT Int : 410 ms P-R-T Axes : 050 084 104 degrees QTc Int : 496 ms Normal sinus rhythm lateral T wave inversion Low voltage QRS Poor anterior R wave progression Prolonged QT Abnormal ECG Compared to prior tracing of 10Apr2023, T wave inversion now preent in high lateral leads Confirmed by DARRYL KEE MD ([id number]) on 04/12/2023 8:50:20 PM Referred By: IRISH Electronically Signed By:DARRYL KEE MD Transcribed By: MUS Signed By Darryl Kee MD 2049 Normal [facility] Electrolyteson 04-11-2023 Anion gap [Moles/Vol] 12.1 mmol/L Normal 6.0-15.0 [facility] Comment on above: Performed By: #### C K, HS TROP #### [facility] [address] [place] [address] [place] Chloride [Moles/Vol] 101 mmol/L Normal 98-107 [facility] Comment on above: Performed By: #### C K, HS TROP #### [facility] [address] [id number] [place] CO2 [Moles/Vol] 26.7 mmol/L Normal 21.0-31.0 [facility] Comment on above: Performed By: #### C K, HS TROP #### [facility] [address] [place] [address] [place] Potassium [Moles/Vol] 3.8 mmol/L Normal 3.5-5.1 [facility] Comment on above: Performed By: #### C K, HS TROP #### [facility] [address] [place] [address] [place] Sodium [Moles/Vol] 136 mmol/L Normal 136-145 [facility] Comment on above: Performed By: #### C K, HS TROP #### [facility] [address] [place] [address] [place] Eosinophils Auto (Bld) [#/Vo l]Ordered By: Stephanie Sweet on 04-11-2023 Eosinophils (Bld) [#/Vol] 0.1 10*3/uL 0.0-0.45 [facility] Eosinophils/100 WBC Auto (Bl d)Ordered By: Stephanie Sweet on 04-11-2023 Eosinophils/100 WBC (Bld) 0.9 % . [facility] Erythrocyte distribution wid th Auto (RBC) [Ratio]Ordered By: Stephanie Sweet on 04-11-2023 Erythrocyte distribution width (RBC) [Ratio] 14.5 % 11.9-15.3 [facility] Glucose Poct Glucometerson 1 06-11-2022 Glucose [Mass/Vol] 200 mg/dL Normal [facility] Comment on above: Result Comment: [facility] Glucose Reference Range is dependent on time and content of last meal. Glucose of more than 200 mg/dL in a nonstressed, ambulatory subject supports the diagnosis of Diabetes Mellitus. PERFORMED BY: [facility] [address] [place] [address] PATHOLOGIST COMPREHENSIVE ADVISOR ELPIDIO DUMONT M.D. Performed By: #### Susan NIETO #### Point of Care testing , Commemt1 Glu2: Cleaned Meter Normal [facility] Comment on above: Result Comment: PERF ORMED BY: [facility] [address] [place] [address] PATHOLOGIST COMPREHENSIVE ADVISOR JIANLAN SUN M.D. Performed By: #### G LULS #### Point of Care testing , Glucose [Mass/Vol] 221 mg/dL Normal [facility] Comment on above: Result Comment: [place] om Glucose Reference Range is dependent on time and content of last meal. Glucose of more than 200 mg/dL in a nonstressed, ambulatory subject supports the diagnosis of Diabetes Mellitus. Performed By: #### G LULS #### Point of Care testing , Glucose [Mass/Vol] 204 mg/dL Normal [facility] Comment on above: Result Comment: [place] om Glucose Reference Range is dependent on time and content of last meal. Glucose of more than 200 mg/dL in a nonstressed, ambulatory subject supports the diagnosis of Diabetes Mellitus. PERFORMED BY: [facility] [address] [place] [address] PATHOLOGIST COMPREHENSIVE ADVISOR ELPIDIO DUMONT M.D. Performed By: #### G LULS #### Point of Care testing , Hematocrit Auto (Bld) [Volum e fraction]Ordered By: Stephanie Sweet on 04-11-2023 Hematocrit (Bld) [Volume fraction] 35.1 % 34.0-46.4 [facility] Hemoglobin [Mass/volume] in BloodOrdered By: Stephanie Sweet on 04-11-2023 Hemoglobin (Bld) [Mass/Vol] 11.8 g/dL 11.8-15.4 [facility] INR in Platelet poor plasma by Coagulation assayOrdered By: Stephanie Sweet on 04-11-2023 INR Coag (PPP) [Relative time] 1.0 {INR} [facility] Comment on above: INR Therapeutic Rang e A) Pre- and Peroperative OAT started two weeks before surgery. NOT HIP SURGERY: 1.5 - 2.5 HIP SURGERY: 2 - 3B) Primary and secondary prevention of venous THROMBOSIS: 2 - 3C) Active venous thrombosis, pulmonary embolismand prevention of recurrent venous thrombosis: 2 - 3D) Prevention of arterial thromboembolismincluding patients with mechanical heart valves: 3 - 4.5 Leukocytes [#/volume] correc davidson for nucleated erythrocytes in Blood by Automated counOrdered By: Stephanie Sweet on 04-11-2023 WBC corrected for nucl RBC Auto (Bld) [#/Vol] 9.0 10*3/uL 3.8-11.6 [facility] Lymphocytes Auto (Bld) [#/Vo l]Ordered By: Stephanie Sweet on 04-11-2023 Lymphocytes (Bld) [#/Vol] 3.0 10*3/uL 1.00-4.8 [facility] Lymphocytes/100 WBC Auto (Bl d)Ordered By: Stephanie Sweet on 04-11-2023 Lymphocytes/100 WBC (Bld) 33.4 % . [facility] MCH Auto (RBC) [Entitic mass ]Ordered By: Stephanie Sweet on 04-11-2023 MCH (RBC) [Entitic mass] 30.7 pg 24.7-34.3 [facility] MCHC Auto (RBC) [Mass/Vol]Or dered By: Stephanie Sweet on 04-11-2023 MCHC (RBC) [Mass/Vol] 33.7 g/dL 32.0-35.0 [facility] MCV Auto (RBC) [Entitic vol] Ordered By: Stephanie Sweet on 04-11-2023 MCV (RBC) [Entitic vol] 91.1 fL 80-100 [facility] Monocytes Auto (Bld) [#/Vol] Ordered By: Stephanie Sweet on 04-11-2023 Monocytes (Bld) [#/Vol] 0.5 10*3/uL 0.0-0.8 [facility] Monocytes/100 WBC Auto (Bld) Ordered By: Stephanie Sweet on 04-11-2023 Monocytes/100 WBC (Bld) 5.8 % . [facility] Neutrophils Auto (Bld) [#/Vo l]Ordered By: Stephanie Sweet on 04-11-2023 Neutrophils (Bld) [#/Vol] 5.3 10*3/uL 1.8-7.7 [facility] Neutrophils/100 WBC Auto (Bl d)Ordered By: Stephanie Sweet on 04-11-2023 Neutrophils/100 WBC (Bld) 59.4 % . [facility] No Panel InformationOrdered By: Florentino Kenyon on 04-11-2023 Bedside Glucose Comment Glu2: cleaned meter [facility] No Panel InformationOrdered By: Stephanie Sweet on 04-11-2023 Estimated GFR (CKD-EPI) > 60.0 mL/Min [facility] Creatinine Clearance (Chem 166.11 [facility] Nucleated erythrocytes [Pres ence] in Blood by Automated countOrdered By: Stephanie Sweet on 04-11-2023 Nucleated RBC Auto Ql (Bld) 0.1 /100{WBC} 0-0.5 [facility] Partial Thromboplastin Timeo n 04-11-2023 aPTT Coag (Bld) [Time] 29.2 s Normal 25.1-36.5 [facility] Comment on above: Result Comment: A he matocrit value greater than 55% may lead to inaccurate results in coagulation testing. Patients having hematocrit values >55% require a special collection tube for coagulation studies. Please contact the laboratory at [phone] for redraw instructions. PERFORMED BY: [facility] [address] [place] [address] PATHOLOGIST COMPREHENSIVE ADVISOR ELPIDIO DUMONT M.D. Performed By: #### G LULS #### Point of Care testing , Platelet mean volume Auto (B ld) [Entitic vol]Ordered By: Stephanie Sweet on 04-11-2023 Platelet mean volume (Bld) [Entitic vol] 9.4 fL 6.3-10.7 [facility] Platelets Auto (Bld) [#/Vol] Ordered By: Stephanie Sweet on 04-11-2023 Platelets (Bld) [#/Vol] 213 10*3/uL 150-450 [facility] Potassium [Moles/volume] in Serum or PlasmaOrdered By: Stephanie Sweet on 04-11-2023 Potassium [Moles/Vol] 3.8 mmol/L 3.5-5.1 [facility] Prothrombin time (PT)Ordered By: Stephanie Sweet on 04-11-2023 PT Coag (PPP) [Time] 12.0 s 9.0-12.9 [facility] Comment on above: A hematocrit value g reater than 55% may lead to inaccurate results in coagulation testing. Patients having hematocrit values >55% require a special collection tube for coagulation studies. Please contact the laboratory at [phone] for redraw instructions. RBC Auto (Bld) [#/Vol]Ordere d By: Stephanie Sweet on 04-11-2023 RBC (Bld) [#/Vol] 3.85 10*6/uL 3.60-5.00 [facility] [place] [facility] Serum or plasma anion gap de terminationOrdered By: Stephanie Sweet on 04-11-2023 Anion gap [Moles/Vol] 12.1 mmol/L 6.0-15.0 [facility] Sodium [Moles/volume] in Ser um or PlasmaOrdered By: Stephanie Sweet on 04-11-2023 Sodium [Moles/Vol] 136 mmol/L 136-145 [facility] Troponin I High Sensitivityo n 04-11-2023 Troponin I High Sensitivity 2287.4 pg/mL Off scale high 0.0-15.0 [facility] Comment on above: Result Comment: Crit ical Result : Called to and read back by: LILLY GRAY at: 04/11/2023 12:03:27 by:MLG PERFORMED BY: [place] [address] PATHOLOGIST COMPREHENSIVE ADVISOR ELPIDIO DUMONT M.D. Performed By: #### G LULS #### Point of Care testing , Troponin I High Sensitivity 2115.2 pg/mL Off scale high 0.0-15.0 [facility] Comment on above: Result Comment: Crit ical Result : Called to and read back by: CLAYTON REDMAN at: 04/11/2023 00:13:42 by:DH PERFORMED BY: [place] [address] PATHOLOGIST COMPREHENSIVE ADVISOR ELPIDIO DUMONT M.D. Performed By: #### C K, HS TROP #### [address] Urea nitrogen [Mass/volume] in Serum or PlasmaOrdered By: Stephanie Sweet on 04-11-2023 Urea nitrogen [Mass/Vol] 11 mg/dL 7- [facility] WBC Auto (Bld) [#/Vol]Ordere d By: Stephanie Sweet on 04-11-2023 WBC (Bld) [#/Vol] 9.0 10*3/uL 3.8-11.6 [facility] Complete Blood Count Auto Di ffon 04-10-2023 Basophils (Bld) [#/Vol] 0.1 10*3/uL Normal 0.0-0.2 [facility] Comment on above: Result Comment: PERF ORMED BY: [place] [address] PATHOLOGIST COMPREHENSIVE ADVISOR ELPIDIO DUMONT M.D. Performed By: #### C K, HS TROP #### [address] Basophils/100 WBC (Bld) 1.4 % Normal . [facility] Comment on above: Performed By: #### C K, HS TROP #### [facility] [address] [place] [address] Eosinophils (Bld) [#/Vol] 0.1 10*3/uL Normal 0.0-0.45 [facility] Comment on above: Performed By: #### C K, HS TROP #### [address] Eosinophils/100 WBC (Bld) 1.2 % Normal . [facility] Comment on above: Performed By: #### C K, HS TROP #### [facility] [address] [place] [address] Erythrocyte distribution width (RBC) [Ratio] 14.1 % Normal 11.9-15.3 [facility] Comment on above: Performed By: #### C K, HS TROP #### [facility] [address] [place] [address] Hematocrit (Bld) [Volume fraction] 36.0 % Normal 34.0-46.4 [facility] Comment on above: Performed By: #### C K, HS TROP #### [facility] [address] [place] [address] [place] Hemoglobin (Bld) [Mass/Vol] 12.2 g/dL Normal 11.8-15.4 [facility] Comment on above: Performed By: #### C K, HS TROP #### [address] Lymphocytes (Bld) [#/Vol] 3.2 10*3/uL Normal 1.00-4.8 [facility] Comment on above: Performed By: #### C K, HS TROP #### [address] Lymphocytes/100 WBC (Bld) 36.2 % Normal . [facility] Comment on above: Performed By: #### C K, HS TROP #### [address] MCH (RBC) [Entitic mass] 30.7 pg Normal 24.7-34.3 [facility] Comment on above: Performed By: #### C K, HS TROP #### [address] MCV (RBC) [Entitic vol] 90.9 fL Normal 80-100 [facility] Comment on above: Performed By: #### C K, HS TROP #### [address] Mean Corpuscular HGB Conc 33.8 g/dL Normal 32.0-35.0 [facility] Comment on above: Performed By: #### C K, HS TROP #### [address] Monocytes (Bld) [#/Vol] 0.4 10*3/uL Normal 0.0-0.8 [facility] Comment on above: Performed By: #### C K, HS TROP #### [address] Monocytes/100 WBC (Bld) 4.6 % Normal . [facility] Comment on above: Performed By: #### C K, HS TROP #### [address] Neutrophils (Bld) [#/Vol] 5.0 10*3/uL Normal 1.8-7.7 [facility] Comment on above: Performed By: #### Rosa Isela Munguia, HS TROP #### [facility] [address] Neutrophils/100 WBC (Bld) 56.6 % Normal . [facility] Comment on above: Performed By: #### Rosa Isela Munguia, HS TROP #### [facility] [address] NRBC% 0.1 /100{WBC} Normal 0-0.5 [facility] Comment on above: Performed By: #### Rosa Isela Munguia, HS TROP #### [address] Platelet mean volume (Bld) [Entitic vol] 9.3 fL Normal 6.3-10.7 [facility] Comment on above: Performed By: #### Rosa Isela Munguia, HS TROP #### [address] Platelets (Bld) [#/Vol] 213 10*3/uL Normal 150-450 [facility] Comment on above: Performed By: #### Rosa Isela Munguia, HS TROP #### [address] RBC (Bld) [#/Vol] 3.96 10*6/uL Normal 3.60-5.00 [facility] [place] [facility] Comment on above: Performed By: #### Rosa Isela Munguia, HS TROP #### [address] WBC (Bld) [#/Vol] 8.9 10*3/uL Normal 3.8-11.6 [facility] Comment on above: Performed By: #### Rosa Isela Munguia, HS TROP #### [address] Creatine Kinaseon 04-10-2023 CK [Catalytic activity/Vol] 268 U/L High 30-223 [facility] Comment on above: Performed By: #### Rosa Isela Munguia, HS TROP #### [facility] [address] [place] [address] [place] CK [Catalytic activity/Vol] 238 U/L High 30-223 [facility] Comment on above: Performed By: #### G LULS #### Point of Care testing , CK [Catalytic activity/Vol] 210 U/L Normal 30-223 [facility] Comment on above: Performed By: #### C K, HS TROP #### [facility] [address] [place] [id number] [place] ECG 12 lead ECGon 04-10-2023 ECG 12 lead ECG [facility] [place] [address] Electrocardiograph Report Signed Patient: Mikayla Mitchell MR#: [id number] 93 : 1975 Acct:[id number] Age/Sex: 47 / F ADM Date: 04/10/23 Loc: Room: [address] [place] [address] Type: ADM IN Attending Dr: Florentino Kenyon MD Ordering Provider: Stephanie Sweet MD Date of Service: 04/10/2301/24/1132 ECG/ECG 12 lead ECG: nstemi Copies to: Test Reason : Blood Pressure : / mmHG Vent. Rate : 097 BPM Atrial Rate : 097 BPM P-R Int : 186 ms QRS Dur : 098 ms QT Int : 384 ms P-R-T Axes : 053 104 063 degrees QTc Int : 487 ms Normal sinus rhythm Rightward axis Septal infarct (cited on or before 10-APR-2023) Prolonged QT Abnormal ECG When compared with ECG of 10-APR-2023 11:52, (Unconfirmed) premature ventricular complexes are no longer present QT has lengthened Confirmed by DARRYL KEE MD ([id number]) on 04/11/2023 3:52:37 PM Referred By: [facility] Electronically Signed By:DARRYL KEE MD Transcribed By: RUST Signed By Darryl Kee MD [address] [facility] ECH echo transthoracicon [facility] echo transthoracic [facility] [place] [address] Echocardiogram Signed Patient: Mikayla Mitchell MR#: [id number] 93 : 1975 Acct:[id number] Age/Sex: 47 / F ADM Date: 04/10/23 Loc: Room: 6V2923-0 Type: ADM IN Attending Dr: Florentino Kenyon MD Ordering Provider: Florentino Kenyon MD Date of Service: 04/10/2301/23/1057 ECH/ECH echo transthoracic: NSTMI Copies to: MD Grace Skinner MD Height: 65 in Weight: 196 lb Performed By: YOBANY Andrea BSA: 2.0 m2 BP: 163/103 mmHg HR: 96 Reason For Study: NSTMI History: DM, PIPPA, Obesity, Family History: Father - CAD, Stents, Brother - CAD, CABG at age 49 Interpretation Summary The left ventricular size and thickness are normal. Ejection Fraction = 25-30%. The LV ejection fraction is severely decreased . A variety of Doppler measurements indicate impaired left ventricular relaxation, which is associated with grade I/IV or mild diastolic dysfunction. There is trace mitral regurgitation. There is trace tricuspid regurgitation. There is no comparison study available. Procedure/Quality: A two-dimensional transthoracic echocardiogram with color flow, Doppler and injection of contrast agent Definity was performed. A two- dimensional transthoracic echocardiogram with color flow and Doppler was performed. The study was technically good in quality. Left Ventricle: The left ventricular size and thickness are normal. Ejection Fraction = 25-30%. The LV ejection fraction is severely decreased . A variety of Doppler measurements indicate impaired left ventricular relaxation, which is associated with grade I/IV or mild diastolic dysfunction. Left Atrium: The left atrium appears normal in size. Right Atrium: The right atrium appears normal in size. Right Ventricle: The right ventricular size, thickness and function are normal. Aortic Valve: The aortic valve is normal in structure and function. No aortic regurgitation is present. Mitral Valve: The mitral valve is normal in structure and function. There is trace mitral regurgitation. Tricuspid Valve: The tricuspid valve is normal in structure and function. There is trace tricuspid regurgitation. Pulmonic Valve: The pulmonic valve is normal in structure and function. Arteries: The aortic root is normal size. Pericardium/Pleura: No pericardial effusion seen. There is no pleural effusion. IVC/Hepatic Viens: The inferior vena cava is normal in size, with a normal collapsibility index. Measurements with Normals IVSd: 0.96 cm (0.7-1.1 cm)LVIDd: 6.6 cm (3.7-5.4 cm) LVPWd: 1.1 cm (0.7-1.1 cm)LVIDs: 5.7 cm (2.3-3.6 cm) LA dimension: 3.6 cm (2.3-4.0 cm)Ao root diam: 3.0 cm(2.0-3.6 cm) asc Aorta Diam: 3.7 cm(2.1-3.4cm) Doppler with Normals MV E max george: 115.0 cm/sec(0.8-1.3m/s) MV A max george: 33.9 cm/sec (0.0-0.0m/s) MV E/A: 3.4 (<1.5) MMode/2D Measurements Calculations RVDd: 2.6 cm RV Base: 4.2 cm FS: 14.0 % Ao root area: TAPSE: 1.6 cm RV Mid: 2.8 cm EDV(Teich): 7.1 cm2 RV S George: RV Length: 8.1 cm 223.7 ml 9.4 cm/sec ESV(Teich): 158.8 ml EF(Teich): 29.0 % __ LVLd ap4: 9.3 cm SV(MOD-sp4): 106.5 ml LAV(MOD-sp4): LA A2 area: 20.5 cm2 EDV(MOD-sp4): 35.5 ml 261.5 ml LAV(MOD-sp2): LA A4 area: 16.7 cm2 LVLs ap4: 8.0 cm 59.5 ml LA length (vol): ESV(MOD-sp4): 6.3 cm 155.0 ml LA vol: 46.1 ml EF(MOD-sp4): LA vol index: 40.7 % 23.5 ml/m2 __ RA Volume: 35.9 ml RA Volume Index: 18.3 ml/m2 Doppler Measurements Calculations MV max PG: E/E' lat: MV dec slope: MR max george: 34.0 mmHg 7.7 292.6 cm/sec E/E' med: 207.0 cm/sec2 MR max P.2 mmHg 9.6 __ RAP systole: 5.0 mmHg Transcribed By: SCV Performed At: 04/10/23 1204 Signed By: Grace Solorio MD 04/10/23 1309 Normal [facility] Glucose Poct Glucometerson 1 06-10-2022 Glucose [Mass/Vol] 201 mg/dL Normal [facility] Comment on above: Result Comment: [facility] Glucose Reference Range is dependent on time and content of last meal. Glucose of more than 200 mg/dL in a nonstressed, ambulatory subject supports the diagnosis of Diabetes Mellitus. PERFORMED BY: [address] [place] [address] PATHOLOGIST COMPREHENSIVE ADVISOR ELPIDIO DUMONT M.D. Performed By: #### G LULS #### Point of Care testing , Glucose [Mass/Vol] 214 mg/dL Normal [facility] Comment on above: Result Comment: [facility] Glucose Reference Range is dependent on time and content of last meal. Glucose of more than 200 mg/dL in a nonstressed, ambulatory subject supports the diagnosis of Diabetes Mellitus. PERFORMED BY: [address] [place] [address] PATHOLOGIST COMPREHENSIVE ADVISOR ELPIDIO DUMONT M.D. Performed By: #### G LULS #### Point of Care testing , Glucose [Mass/Vol] 196 mg/dL Normal [facility] Comment on above: Result Comment: [facility] Glucose Reference Range is dependent on time and content of last meal. Glucose of more than 200 mg/dL in a nonstressed, ambulatory subject supports the diagnosis of Diabetes Mellitus. PERFORMED BY: [place] [address] PATHOLOGIST COMPREHENSIVE ADVISOR ELPIDIO DUMONT M.D. Performed By: #### G EMILIA #### Point of Care testing , Partial Thromboplastin Timeo n 04-10-2023 aPTT Coag (Bld) [Time] 26.1 s Normal 25.1-36.5 [facility] Comment on above: Result Comment: A he matocrit value greater than 55% may lead to inaccurate results in coagulation testing. Patients having hematocrit values >55% require a special collection tube for coagulation studies. Please contact the laboratory at [phone] for redraw instructions. PERFORMED BY: [place] [address] PATHOLOGIST COMPREHENSIVE ADVISOR ELPIDIO DUMONT M.D. Performed By: #### C K, HS TROP #### [address] Prothrombin Time INRon 04-10 INR Coag (PPP) [Relative time] 1.0 {INR} Normal [facility] Comment on above: Result Comment: INR Therapeutic Range A) Pre- and Peroperative OAT started two weeks before surgery. NOT HIP SURGERY: 1.5 - 2.5 HIP SURGERY: 2 - 3 B) Primary and secondary prevention of venous THROMBOSIS: 2 - 3 C) Active venous thrombosis, pulmonary embolism and prevention of recurrent venous thrombosis: 2 - 3 D) Prevention of arterial thromboembolism including patients with mechanical heart valves: 3 - 4.5 Performed By: #### C K, HS TROP #### [address] PT Coag (PPP) [Time] 12.1 s Normal 9.0-12.9 [facility] Comment on above: Result Comment: A he matocrit value greater than 55% may lead to inaccurate results in coagulation testing. Patients having hematocrit values >55% require a special collection tube for coagulation studies. Please contact the laboratory at [phone] for redraw instructions. Performed By: #### C K, HS TROP #### [place] [id number] [facility] Troponin I High Sensitivityo n 04-10-2023 Troponin I High Sensitivity 1613.1 pg/mL Off scale high 0.0-15.0 [facility] Comment on above: Result Comment: Crit ical Result : Called to and read back by: TRE NASH at: 04/10/2023 18:42:30 by:DC PERFORMED BY: [place] [address] PATHOLOGIST COMPREHENSIVE ADVISOR ELPIDIO DUMONT M.D. Performed By: #### C K, HS TROP #### [address] Troponin I High Sensitivity 1083.2 pg/mL Off scale high 0.0-15.0 [facility] Comment on above: Result Comment: Crit ical Result : Called to and read back by: TRE NASH at: 04/10/2023 16:30:31 by:DC PERFORMED BY: [place] [address] PATHOLOGIST COMPREHENSIVE ADVISOR ELPIDIO DUMONT M.D. Performed By: #### G LULS #### Point of Care testing , Troponin I High Sensitivity 899.4 pg/mL Off scale high 0.0-15.0 [facility] Comment on above: Result Comment: PERF ORMED BY: [place] [address] PATHOLOGIST COMPREHENSIVE ADVISOR ELPIDIO DUMONT M.D. Performed By: #### C K, HS TROP #### [place] [address] [place] XR chest 2V*on 04-10-2023 XR chest 2V* [facility] [place] [address] [place] [address] XRay Report Signed Patient: Mikayla Mitchell MR#: [id number] 93 : 1975 Acct:[id number] Age/Sex: 47 / F ADM Date: 04/10/23 Loc: Room: [address] [place] [address] Type: ADM IN Attending Dr: Florentino Kenyon MD Copies to: MD Stephanie Skinner MD Ordering Provider: Stephanie Sweet MD Date of Service: 04/10/23 XR/XR chest 2V*: shortness of breath XR chest 2V* 04/10/2023 11:33 AM SIGNS AND SYMPTOMS: shortness of breath, midsternal chest pain, hypertension PROTOCOL: Frontal and lateral radiographs of the chest COMPARISON: None FINDINGS: The trachea is midline. The heart and mediastinal structures are within normal limits. There is linear scarring or atelectasis near the left lung base. The lung parenchyma is clear, otherwise. The bony thorax is intact. XR/XR chest 2V* IMPRESSION: There is linear scarring or atelectasis near the left lung base. The lung parenchyma is clear, otherwise Impression dictated by: Ralf Kelly M.D.04/10/2023 3:17 PM Dictation Location: [place] [address] Transcribed By: [facility] 04/10/23 1517 Dictated By: Ralf Kelly II, MD 04/10/23 1515 Signed By: 04/10/23 1517 [facility] FREE T4on 01-04-2022 Free T4 [Mass/Vol] 0.91 ng/dL Normal 0.76-1.46 [facility] Comment on above: Performed By: #### F T4 #### [facility] [address] [place] [address] Dr. Jane Alexis LAB TESTINGon 01-04-2022 RECV HEADER SEE SCANNED REPORT IN HPF [facility] Comment on above: Performed By: #### M ISC #### [facility] [address] [place] [address] Dr. Jane Alexis REV FROM REF LAB 01/05/[address] [facility] Comment on above: Performed By: #### M ISC #### [facility] [address] [place] [address] Dr. Jane Alexis SENT TO REF LAB 01/04/[address] [facility] Comment on above: Performed By: #### M ISC #### [facility] [address] [place] [address] Dr. Jane Alexis TSHon 01-04-2022 TSH 2.294 uIU/mL Normal 0.358-3.740 [facility] Comment on above: Performed By: #### T #### [facility] [address] [place] [address] [address] Jane Alexis Physician Referralon 021 Physician Referral [id number]:[id number] Normal [facility] Vital Signs Date Time Vital Sign Value Performing Clinician Facility 05-01-2023 11:40-0500 Body height 165.1 cm Stephanie Sweet Other [facility] Other 05-01-2023 11:40-0500 Body mass index (BMI) [Ratio] 31.95 kg/m2 Stephanie Sweet Other [facility] Other 05-01-2023 11:40-0500 Body weight 87.09 kg Stephanie Sweet Other [facility] Other 05-01-2023 11:40-0500 Diastolic blood pressure 82 mm[Hg] Stephanie Sweet Other [facility] Other 05-01-2023 11:40-0500 Respiratory rate 20 /min Stephanie Sweet Other [facility] Other 05-01-2023 11:40-0500 SaO2% (BldA) [Mass fraction] 96 % Stephanie Sweet Other [facility] Other 05-01-2023 11:40-0500 Systolic blood pressure 136 mm[Hg] Stephanie Sweet Other [facility] Other 04-12-2023 11:44-0500 Body temperature 98.7 [degF] MD Shilpa Lewis Work Phone: [facility] 04-12-2023 11:44-0500 Diastolic blood pressure 69 mm[Hg] MD Shilpa Lewis Work Phone: [facility] 04-12-2023 11:44-0500 Heart rate 82 /min MD Shilpa Lewis Work Phone: [facility] 04-12-2023 11:44-0500 Respiratory rate 18 /min MD Shilpa Lewis Work Phone: [facility] 04-12-2023 11:44-0500 SaO2% (BldA) [Mass fraction] 95 % MD Shilpa Lweis Work Phone: [facility] 04-12-2023 11:44-0500 Systolic blood pressure 113 mm[Hg] MD Shilpa Lewis Work Phone: [facility] 04-12-2023 06:00-0500 Body weight 88.7 kg MD Shilpa Lewis Work Phone: [facility] 04-12-2023 04:33-0500 Inhaled oxygen concentration 21 % MD Shilpa Lewis Work Phone: [facility] 04-10-2023 10:18-0500 Body height 165.1 cm MD Shilpa Lewis Work Phone: [facility] Encounters Encounter Date Encounter Type Care Provider Facility Start: 06-11-2023 End: 06-11-2023 ambulatory Stephanie Sweet Other [employer] Other Start: 06-11-2023 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 Start: 06-10-2023 End: 06-10-2023 ambulatory Stephanie Sweet Other [employer] Other Start: 06-10-2023 Telephone encounter Stephanie Davis Cardiology Start: 05-08-2023 End: 05-08-2023 ambulatory Stephanie Sweet Other [employer] Other Start: 05-08-2023 Telephone encounter Stephanie Sweet [facility] Start: 05-01-2023 End: 05-01-2023 ambulatory Stephanie Sweet Other [employer] Other Start: 05-01-2023 Office outpatient vi sit 25 minutes Stephanie Trammelloroge [facility] Start: 04-10-2023 End: 04-12-2023 Evaluation and management of inpatient Florentino Lowead Facility:[facility] Start: 04-10-2023 End: 04-12-2023 Evaluation and management of inpatient MD Shilpa Lewis Work Phone: [facility] Work Phone: Start: 01-04-2022 End: 01-05-[address] SHILPA LEWIS Facility:H1 Procedures Date Procedure Procedure Detail Performing Clinician Start: 04-11-2023 MD Shilpa Lewis Work Phone: Start: 04-11-2023 CL LHC & COR Angio (Right) MD Shilpa Lewis Work Phone: Start: 04-11-2023 CL PTCA 1st Vessel R CA (Right) MD Shilpa Lewis Work Phone: Start: 04-11-2023 CL Stent 1st Vessel LAD NILSA (Right) MD Shilpa Lewis Work Phone: Start: 04-10-2023 Plain chest X-ray MD Gentry Lewis Work Phone: Start: 10-12-2015 General examination of patient Stephanie Sweet Other Viral screening Stephanie cullen Other Plan of Treatment Date Care Activity Detail Author Start: 04-12-2023 [facility] Start: 04-10-2023 Hospital admission [facility] Start: 04-10-2023 Sleep disorder assessment [facility] Patient Education Coronary Angio plasty (DC) Coronary Stenting (DC) Angina (DC) Chest Pain (DC) Coronary Artery Disease (DC) Coronary artery disease in women Drug Eluting Stents [facility] Work Phone: Patient referral [facility] Work Phone: Payers Date Payer Category Payer Self-pay [id number] 1975 Unknown [id number] 1960 Private Health Insurance [id number] Unknown [id number] Social History Date Type Detail Facility Start: 04-11-2023 Tobacco smoking status NHIS Smoker (finding) [facility] Start: 1975 Sex Assigned At Female F [facility] Sex Assigned At Sex Assigned At Bir th [employer] Other Medical Equipment Procedure Code Equipment Code Equipment Origin al Text Equipment Identifier Dates CL STENT GARTH FRONTIER 3.5 X 15 FDA Start: 04-11-2023 Goals Date Patient Goal Desired Activity /State Functional Status Date Assessment Result Facility 04-12-2023 Functional status Patient at Baseline [facility] Work Phone: Mental Status Date Assessment Result Facility 04-12-2023 Cognitive function Cognitive Sta tus Patient at Baseline [facility] Work Phone: Clinical Notes 04-10-2023 to 05-08-2023 Note Date & Type Note Facility 05-08-2023 Evaluation note Encounter Date Diagnosis Assessment Notes May, Ischemic cardiomyopathy (ICD-10 - I25.5) [employer] Other [id number] Evaluation note* Encounter Date Diagnosis Assessment Notes Treatment Notes Treatment Clinical Notes Apr, History of non-ST elevation myocardial infarction (NSTEMI) (ICD-10 - I25.2) Ms Mitchell is a a 47 yr old female, [place] [facility] [place] for NSTEM[place]. Cath and PCI to the LAD was successful. Unsuccessful attempt to cross the RCA lesion. HX of DM type 2, HTN, PIPPA, hyperlipidemia. ECHO 04/10/2023: EF of 25-30% with grade 1 diastolic dysfunction. Trace MR, trace TR. [facility] 04/11/2023 consistent with severe two-vessel CAD-70% proximal LAD and 100% proximal RCA. Status post PCI to proximal LAD with 3.5 x 15 mm Garth NILSA. 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 Assessment: 2v CAD s/p PCI to LAD (presented with NSTEMI) Systolic heart failure. Euvolemic Hypertension Hyperlipidemia Diabetes type 2 Active tobacco use Family history of premature CAD Morbid obesity PIPPA not compliant with CPAP Plan: - [facility] 04/11/2023 consistent with severe two-vessel CAD-70% proximal LAD and 100% proximal RCA. Status post PCI to proximal LAD with 3.5 x 15 mm Weinert NILSA. 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 -Continue DAPT-aspirin 81 mg daily plus Brilinta 90 mg twice daily for at least a year. -Continue atorvastatin 80 mg, losartan 50 mg daily, carvedilol 3.125 mg twice daily. - Pt has occasional angina. Will start Imdur 30mg daily. Plan to start SGLT2 during next visit. - Patient is euvolemic and has no diuretic indications. - Continue LifeVest for total of 3 months. -Will repeat echo in Jul 2023 and if EF is less than 35%, will refer to EP for ICD implantation. -Discussed smoking cessation-pt is considering acupuncture to help assist with quitting. -Will refer to cardiac rehab. -Follow-up in 3 months. Apr, Ischemic cardiomyopathy (ICD-10 - I25.5) Apr, Post PTCA (ICD-10 - Z98.61) [employer] Other 11-10-2023 Hospital Discharge instructions Additional Instructions Please follow up with your Primary Care Physician regarding your sleep apnea machine. DISCHARGE INSTRUCTIONS FOR ANGIOPLASTY/CORONARY/PERIPHERAL/STENT IMPLANT FOR ADULT ANTICOAGULATION -Since the greatest risk of a blood clot forming with the stent occurs in the first 2-3 weeks after implantation, you will need to take anticoagulants for at least 12-18 months. ANTICOAGULATION MEDICATION Aspirin 81mg once a day, Ticagrelor (Brilinta) 90mg twice a day STATIN MEDICATION Atorvastatin (Lipitor) 80 mg Drug-Eluting Stent (NILSA) DO NOT discontinue Brilinta/Aspirin during the first few months regardless of what you are advised by your family doctor or pharmacist, without first calling the answering service telephone operator who implanted the stent. If you require pain relief during this time, please take only ACETAMINOPHEN (TYLENOL)- NO additional aspirin or ibuprofen. DISCHARGE ACTIVITIES ARE FOLLOWS: First week after discharge: -Take it easy at home, no strenuous activity. -Do not lift or pull objects over 10-15 pounds, including children, and groceries for four weeks. If puncture site is at wrist do NOT lift more than three pounds for three days. - May walk up stairs. -May shower. -No excessive scrubbing of the affected site (groin). -May ride in car. -May resume sexual intercourse after 1-2 weeks. -No MRI for 12 days. -May drive in 4-7 days. -If puncture site is at the wrist do not manipulate the wrist for 24 hours, and no soaking wrist for three days. Second Week: -May take a bath -May start walking 3 times a week for 15-20 minutes at a leisurely pace. You should be able to carry on a conversation comfortably without feeling winded. -No strenuous activity as in jogging, running, weight lifting, stair steppers, etc. until the answering service telephone operator approves these activities. Check with the answering service telephone operator on your first follow-up visit. CALL YOUR PHYSICIAN at [phone]: -If bleeding should occur from the catheter insertion site- apply pressure to the site then immediately call us. -Report any fever, redness, drainage, increased swelling, or firmness at the catheter insertion site. Some bruising or slight swelling may be present at the time of discharge. -Should arm or leg become cold, numb, white, or blue, contact the answering service telephone operator immediately. -IF you should experience episodes of angina, e.g. chest discomfort, heaviness, tightness, pressure burning with or without radiation to the neck, jaw, arms or back- use 1 Nitrostat tablet under your tongue every 5-10 minutes and up to three tablets. IF NO RELIEF, CALL 911 or GO TO THE NEAREST EMERGENCY ROOM. -Please notify our office if you have recurrent angina. -[Cardiac Rehab Education Provided. Participation in the Cardiopulmonary Rehabilitation program is recommended. Please call Central Scheduling at [phone] to schedule your appointment.] The attending answering service telephone operator or [facility] nurse clinician should provide you with specific instructions regarding activity, diet, medications, and further follow up for you. Follow the medication instructions provided on your discharge. If the dosages and instructions on this sheet differ from the dosage and instructions on the bottle, follow the instructions on the bottle. [facility] is not responsible for incorrect prescription information provided by the patient during their visit. Do not stop your medications without consulting your health care provider. Please take the list with you to your next doctor's appointment.[facility] Work Phone: 1(380) 378-117111-10-2023 Discharge summary Author Florentino Kenyon [facility] April 12, 2023 9:01am Note Date/Time April 12, 2023 9:01am [facility] [address] [place] [address] Discharge Summary Signed Patient: Mikayla Mitchell MR#: [id number] : 1975 Acct:[id number] Age/Sex: 47 / F Adm Date: 3 Loc: Room: 1J8388-[address]: Florentino Kenyon MD Copies to: MD Shilpa Skinner MD~ Providers Date of Discharge: 04/12/23 Discharging Provider: Florentino Kenyon Primary Care Provider: Shilpa Lewis Consults: 04/10/23 10:29 Consult to Sleep Lab Routine 04/10/23 10:57 Consult to Cardiology Routine Discharge Diagnosis (1) Nicotine abuse: (2) PIPPA (obstructive sleep apnea): (3) Hyperlipidemia: (4) Diabetes type 2, controlled: (5) Hypertension: (6) Non-STEMI (non-ST elevated myocardial infarction): Final Diagnosis Final Discharge Diagnosis: NSTMI Ischemic cardiomyopathy Summary Hospital Course Hospital course: 47-year-old white female past medical history obesity, hypertension, hyperlipidemia, diabetes type 2 and nicotine abuse who present emergency room with chest pain. She has been complaint of chest pain since last night. The pain is located in the midsternal area. The pain is pressure pain in nature. Started to her jaw. Associated with nausea. There are no aggravating or elevating factors. No vomiting. She denies any shortness of breath. No orthopnea PND. She denies having cough. No fever or chills. She denies of anyabdominal pain. No diarrhea. No constipation. She denies having dysuria, hematuria, frequency. No admissions, melena, or hematochezia. Assessment and plan Non-STEMI Seen and examined Clinically stable No chest pain No SOB NPO On Heparin infusion Echocardiogram The left ventricular size and thickness are normal. Ejection Fraction = 25-30%. The LV ejection fraction is severely decreased . A variety of Doppler measurements indicate impaired left ventricular relaxation, which is associated with grade I/IV or mild diastolic dysfunction. There is trace mitral regurgitation. There is trace tricuspid regurgitation. There is no comparison study available. s/p Cardiac cath -2 vessel coronary artery disease- 70% proximal LAD and 100% RCA with left to right collaterals. -Elevated LVEDP 38 mmHg s/p PCI and stent of LAD In the proximal portion of the LAD located the vessel is normally 3.5 to 3.8 mm diameter, there is a focal, concentric, 70% tubular stenosis with SHIRA-3 flow. The ACC/AHA criteria for lesion is type A. Utilizing the JL 3.5 guide catheter,0.014 universal wire is navigated across the stenosis, the lesion was directly stented with a 3.5 x 15 mm Weinert stent at 18 john with a residual stenosis of 0% SHIRA-3 flow no other disease in the LAD or diagonal branch system. S/p attempt PCI RCA In the proximal portion of the RCA there appeared to be a acutely thrombotic lesion with SHIRA 0 flow and a reference vessel 3.5 mm length of disease segment appears to be greater than 20 to 30 mm the ACC/AHA criteria for lesion is type C. Utilizing JR4 guide catheter, 0.014 universal wire was navigated into the lesion with the assistance of a 1.5 sprinter balloon and 5.5 guide liner would not traverse the lesion anymore than 1 cm. The end of the left coronary intervention a second attempt at the right coronarylesion was made with a JL 3.5 guide catheter which was navigated into the RCA and provided better backup support, 0.014 miracle Bros type III wire was advanced into the lesion and advanced another centimeter beyond however once again came up against similar chronic occlusion anatomy and would not traverse any further. Because of this lack of advancement of the wire, this lesion is now determined to be truly a chronic occlusion and not acute thrombotic lesion and therefore at this point, no further wire advancement techniques were performed, the guide and wire were removed without incident. The right coronary artery remains occluded (chronic total occlusion) Losartan PO daily 50 mg Coreg PO BID 6.25 mg Brilinta PO BID ASA daily Lipitor daily Life vest Follow up with PCP Hypertension: Add losartan 25 mg daily Diabetes type 2: Accu-Chek/ ACHS insulin sliding scale/ hold metformin for now/ Hyperlipidemia:: Lipitor 80 mg daily Obstructive sleep apnea: Sleep apnea as outpatient Obesity: Lifestyle modification Nicotine abuse nicotine patch: Condition Condition at Discharge: Stable Status at Discharge Functional status at discharge: independent ambulation Time Spent with Patient Time spent providing/coordinating discharge services (# min): 38 Surgeries and Procedures Operation Date: 04/11/23 12:15 Actual Procedures p CL LHC & COR Angio(Right) - Stephanie Sweet MD p CL PTCA 1st Vessel RCA(Right) - Magali Cortez DO p CL Stent 1st Vessel LAD NILSA(Right) - Magali Cortez DO Complications Complications: None Diagnostic Studies Completed and Pending Studies Pending studies at discharge: 04/11/23 14:42 ECG 12 lead ECG Stat 04/12/23 05:00 ECG 12 lead ECG IN AM Labs on day of discharge: 04/12/23 07:37: POC Glucose 219 04/12/23 04:34: Troponin I High Sens 3417.1 H* 04/11/23 20:35: POC Glucose 200 04/11/23 16:01: POC Glucose 221, POC Glucose Comment Glu2: cleaned meter 04/11/23 10:56: Total Creatine Kinase 186, Troponin I High Sens 2287.4 H* Exam Physical Exam Vital Signs: Temp Pulse Resp BP Pulse Ox O2 Del Method FiO2 98.3 F 82 18 132/83 97 CPAP 21 04/11/23 20:00 04/12/23 04:33 04/12/23 04:33 04/12/23 04:00 04/12/23 04:33 04/12/23 04:00 04/12/23 04:33 Narrative: General patient laying in bed in no acute distress alert awake oriented x3 HEENT PERRLA Neck supple no JVD no carotid bruit CVS S1-S2 regular rate and rhythm no murmur no gallop Chest clear to auscultation percussion Abdomen soft bowel sounds normoactive no rebound no guarding Extremities no stenosis no clubbing no edema Musculoskeletal exam normal no joint effusion Neurologic exam oriented x3 alert awake no focal left Psychiatry: Normal insight and judgment Skin exam: No rash no lesions Discharge Plan Discharge Plan Patient Disposition: Home Activity: Ambulate as Tolerated Comment: See cardiac cath dc instructions for activity restrictions. Diet: Diabetic, Low-Sodium and Low-Cholesterol Additional Instructions: DISCHARGE INSTRUCTIONS FOR ANGIOPLASTY/CORONARY/PERIPHERAL/STENT IMPLANT FOR ADULT ANTICOAGULATION -Since the greatest risk of a blood clot forming with the stent occurs in the first 2-3 weeks after implantation, you will need to take anticoagulants for at least [?insert date or amount of time?]. ANTICOAGULATION MEDICATION [INSERT MEDICATION NAME: Aspirin 81mg once a day, Aspirin 325mg once a day, Clopidogrel (Plavix) 75mg one tablet, Prasugrel (Effient) 10mg once a day once a day, Ticagrelor (Brilinta) 90mg twice a day] STATIN MEDICATION [INSERT MEDICATION NAME: atorvastatin (Lipitor) 80 mg or rosuvastatin (Crestor) 40mg] [Bare Metal Stent (BMS) duration ] [Drug-Eluting Stent (NILSA) duration] DO NOT discontinue Plavix/Effient/Brilinta/Aspirin during the first few months regardless of what you are advised by your family doctor or pharmacist, without first calling the answering service telephone operator who implanted the stent. If you require pain relief during this time, please take only ACETAMINOPHEN (TYLENOL)- NO additional aspirin or ibuprofen. DISCHARGE ACTIVITIES ARE FOLLOWS: First week after discharge: -Take it easy at home, no strenuous activity. -Do not lift or pull objects over 10-15 pounds, including children, and groceries for four weeks. If puncture site is at wrist do NOT lift more than three pounds for three days. - May walk up stairs. -May shower. -No excessive scrubbing of the affected site (groin). -May ride in car. -May resume sexual intercourse after 1-2 weeks. -No MRI for 12 days. -May drive in 4-7 days. -If puncture site is at the wrist do not manipulate the wrist for 24 hours, and no soaking wrist for three days. Second Week: -May take a bath -May start walking 3 times a week for 15-20 minutes at a leisurely pace. You should be able to carry on a conversation comfortably without feeling winded. -No strenuous activity as in jogging, running, weight lifting, stair steppers, etc. until the answering service telephone operator approves these activities. Check with the answering service telephone operator on your first follow-up visit. CALL YOUR PHYSICIAN at [phone]: -If bleeding should occur from the catheter insertion site- apply pressure to the site then immediately call us. -Report any fever, redness, drainage, increased swelling, or firmness at the catheter insertion site. Some bruising or slight swelling may be present at thetime of discharge. -Should arm or leg become cold, numb, white, or blue, contact the answering service telephone operator immediately. -IF you should experience episodes of angina, e.g. chest discomfort, heaviness, tightness, pressure burning with or without radiation to the neck, jaw, arms or back- use 1 Nitrostat tablet under your tongue every 5-10 minutes and up to three tablets. IF NO RELIEF, CALL 911 or GO TO THE NEAREST EMERGENCY ROOM. -Please notify our office if you have recurrent angina. -[Cardiac Rehab Education Provided. Participation in the Cardiopulmonary Rehabilitation program is recommended. Please call Central Scheduling at [phone] to schedule your appointment.] The attending answering service telephone operator or [facility] nurse clinician should provide you with specific instructions regarding activity, diet, medications, and further follow up for you. Follow the medication instructions provided on your discharge. If the dosages and instructions on this sheet differ from the dosage and instructions on the bottle, follow the instructions on the bottle. [facility] is not responsible for incorrect prescription information provided by thepatient during their visit. Do not stop your medications without consulting your health care provider. Please take the list with you to your next doctor's appointment. Instructions: Coronary Angioplasty (DC), Coronary Stenting (DC), Angina (DC), Chest Pain (DC), Coronary Artery Disease (DC), Coronary artery disease in women,Drug Eluting Stents Stand Alone Forms: Work/School Release Form Prescriptions: New losartan 50 mg Tablet 50 mg PO QAM Qty: 30 1RF atorvastatin 80 mg Tablet 80 mg PO QPM Qty: 30 1RF aspirin 81 mg Tablet,Delayed Release (Dr/Ec) 81 mg PO DAILY Qty: 30 0RF Brilinta 90 mg Tablet 90 mg PO BID Qty: 60 1RF carvedilol 6.25 mg tablet 6.25 mg PO BID.WITH.MEALS Qty: 60 2RF Continued metformin 500 mg tablet extended release 24 hr 500 mg PO BID Patient Comments: TAKE 1 TABLET BY MOUTH TWICE A DAY Follow Up: Shilpa Lewis MD [Primary Care Provider] - 04/16/23 10:30 am (You have been scheduled for a follow up appointment for the following date and time, please call to reschedule if needed.) Stephanie Sweet MD [Active Staff] - Documented By: Florentino Kenyon MD 04/12/23 0856 Signed By: <Electronically signed by Florentino Kenyon MD> 04/12/23900 [facility] Work Phone: 1(948) 197-740111-09-2023 Consult note [address] [facility] April 11, 2023 6:12pm Note Date/Time April 11, 2023 6 :12pm [facility] [address] [place] [address] Cardiology Consult Note Signed Patient: Mikayla Mitchell MR#: [id number] : 1975 Acct:[id number] Age/Sex: 47 / F Adm Date: 3 Loc: Room: [address] [place] [address] Type: ADM IN Attending Dr: Florentino Kenyon MD Copies to: MD Shilpa Skinner MD [facility], DO~ Cardiology HPI History of Present Illness Consult Date: 04/11/23 Reason for Consult: Non-ST elevation NC, two-vessel ASHD, ischemic cardiomyopathy HPI: Ms. Mitchell is a 47 year old female seen in interventional cardiology consultationat the request of Dr. Sweet for further evaluation, and management in regards to recent non-STEMI with associated occluded RCA and severe proximal LAD diseasewith severe LV dysfunction. Ms. Mitchell is a 47 year old female with past medical history significant for hypertension, hyperlipidemia, diabetes type 2, active tobacco use, morbid obesity, PIPPA not on CPAP who presents with a 1 week history of intermittent left-sided chest pain radiating to the jaws bilaterally. This has gotten progressively worse in the last 2 days. Associated with nausea. Aggravated by exertion and relieved by nitroglycerin. She denies dyspnea, orthopnea, PND, BLEedema, weight gain, palpitations, lightheadedness or syncope. Patient has not had any prior symptoms in the past. She does report that her older brother recently had bypass surgery. Father alsohad premature CAD. Patient initially presented to [facility] where troponin was positive: 248-256. BNP elevated at 1327. EKG showed sinus tachycardia. Echo today shows EF of 25-30% with grade 1 diastolic dysfunction. Trace MR, trace TR. Troponin trend on arrival [phone] Catheterization was reviewed with primary answering service telephone operator, there is appears to be athrombotic occlusion of the proximal dominant RCA, and moderate 70% disease of the proximal LAD. We will proceed with PCI of the LAD, and attempted crossing of what appears to be a thrombotic occlusion of the RCA. [facility] Medical History (Updated 04/10/23 @ 11:06 by Florentino Kenyon MD) Diabetes PIPPA (obstructive sleep apnea) Surgical History (Updated 04/10/23 @ 10:35 by Kathya Arambula RN) H/O: hysterectomy History of cholecystectomy Family History (Updated 04/10/23 @ 10:35 by Kathya Arambula RN) Sister Pancreatic cancer Father Colon cancer Father Myocardial infarction Mother Stroke Brother S/P CABG x 4 Social History Smoking Status: Current every day smoker Meds Medications and Allergies Allergies No Known Allergies Allergy (Verified 04/10/23 10:38) Home Medications metformin 500 mg tablet,extended release 24 hr 500 mg PO BID 04/10/23 [History Confirmed 04/10/23] Exam Physical Exam Vital Signs: Temp Pulse Resp BP Pulse Ox O2 Del Method 97.5 F L 98 H 16 135/87 98 Room Air 04/11/23 08:00 04/11/23 08:00 04/11/23 08:00 04/11/23 08:00 04/11/23 08:00 04/11/23 08:00 Const General: cooperative and no acute distress Nutritional Appearance: obese Orientation: awake (Currently sedated) HEENT Head: normal to inspection Chest Chest palpation & inspection: normal inspection of the chest Resp Effort & Inspection: normal respiratory effort Auscultation: clear to auscultation bilaterally Cardio Palpation: normal PMI Rate: regular rate and tachycardic Rhythm: regular rhythm Heart Sounds: S1 normal and S2 normal Pulses: radial pulses present GI Inspection: obesity Palpation: soft Skin General: no rashes or lesions noted Extrem General: no clubbing, cyanosis or edema Results Labs 04/11/23 04:27 04/11/23 04:27 Lab results: Cardiac Enzymes 04/10/23 04/10/23 04/10/23 Range/Units 14:16 17:47 23:26 Total Creatine Kinase 238 H 268 H 242 H (30-223) U/L 04/11/23 Range/Units 10:56 Total Creatine Kinase 186 (30-223) U/L CBC 04/10/23 04/11/23 Range/Units 20:21 04:27 RBC 3.96 3.85 (3.60-5.00) X10E6/uL Hgb 12.2 11.8 (11.8-15.4) g/dL Hct 36.0 35.1 (34.0-46.4) % Plt Count 213 213 (150-450) x10E3/uL Neut # (Auto) 5.0 5.3 (1.8-7.7) x10E3/uL Lymph # (Auto) 3.2 3.0 (1.00-4.8) x10E3/uL [place] # (Auto) 0.4 0.5 (0.0-0.8) x10E3/uL Eos # (Auto) 0.1 0.1 (0.0-0.45) x10E3/uL Baso # (Auto) 0.1 0.0 (0.0-0.2) x10E3/uL Comprehensive Metabolic Panel 04/11/23 Range/Units 04:27 Sodium 136 (136-145) mmol/L Potassium 3.8 (3.5-5.1) mmol/L Chloride 101 (98-107) mmol/L Carbon Dioxide 26.7 (21.0-31.0) mmol/L BUN 11 (7-25) mg/dL Creatinine 0.47 L (0.60-1.20) mg/dL Intake and Output 11/01/2304/11/23 04/11/23 23:59 07:59 15:59 Intake Total 300 / 600 0 / 0 Balance 300 / 600 0 / 0 Intake: Oral 300 / 600 0 / 0 Other: # Unmeasured Voids 2 2 Weight 94.2 kg Date of Last Bowel Movement 04/08/23 04/08/23 Patient Weight 04/11/23 23:59 Weight 94.2 kg Lab 04/10/23 04/11/23 04/11/23 20:21 02:36 04:27 PT 12.1 12.0 INR 1.0 1.0 APTT 26.1 29.2 29.3 A&P - Cardiology (1) Nicotine abuse: Code(s): Z72.0 - Tobacco use (2) PIPPA (obstructive sleep apnea): Code(s): G47.33 - Obstructive sleep apnea (adult) (pediatric) (3) Hyperlipidemia: Code(s): E78.5 - Hyperlipidemia, unspecified (4) Diabetes type 2, controlled: Code(s): E11.9 - Type 2 diabetes mellitus without complications (5) Hypertension: Code(s): I10 - Essential (primary) hypertension (6) Non-STEMI (non-ST elevated myocardial infarction): Assessment/Problem Details: Severe two-vessel ASHD with what appears to be thrombotic occlusion of the RCA and 70% stenosis proximal LAD Plan: Attempted two-vessel PCI's. Code(s): I21.4 - Non-ST elevation (NSTEMI) myocardial infarction Documented By: Magali Cortez DO 04/11/23 1455 Signed By: <Electronically signed by Magali Cortez DO> 04/11/23 2254 [facility] Work Phone: [phone]) [phone] Progress note Author Stephanie Sweet [facility] April 11, 2023 1:12pm Note Date/Time April 11, 2023 1 :09pm [facility] [address] [place] [address] Cardiology Progress Note Signed Patient: Mikayla Mitchell MR#: [id number] : 1975 Acct:[id number] Age/Sex: 47 / F Adm Date: 3 Loc: 4 Room: [address] [place] [address] Type: ADM IN Attending Dr: Florentino Kenyon MD Copies to: ~ Date of Service: 04/11/2023 Subjective Principal diagnosis: NSTEMI Interval history: Ms. Mitchell is a 47 year old female with past medical history significant for hypertension, hyperlipidemia, diabetes type 2, active tobacco use, morbid obesity, PIPPA not on CPAP who presents with a 1 week history of intermittent left-sided chest pain radiating to the jaws bilaterally. This has gotten progressively worse in the last 2 days. Associated with nausea. Aggravated by exertion and relieved by nitroglycerin. She denies dyspnea, orthopnea, PND, BLEedema, weight gain, palpitations, lightheadedness or syncope. Patient has not had any prior symptoms in the past. She does report that her older brother recently had bypass surgery. Father alsohad premature CAD. Patient initially presented to [facility] where troponin was positive: 248-256. BNP elevated at 1327. EKG showed sinus tachycardia. Echo today shows EF of 25-30% with grade 1 diastolic dysfunction. Trace MR, trace TR. Interim history 04/11/2023: Troponin continues to uptrend 899-->2200. Reports minimal chest pain today. Heparin drip restarted last night. [facility] today Exam Physical Exam Vital Signs: Temp Pulse Resp BP Pulse Ox O2 Del Method 97.5 F L 98 H 16 135/87 98 Room Air 04/11/23 08:00 04/11/23 08:00 04/11/23 08:00 04/11/23 08:00 04/11/23 08:00 04/11/23 08:00 Narrative: GEN: AAOx3. No acute distress. Lying comfortably flat in bed Neck: No JVD. Lungs: Clear to auscultation bilaterally Heart: Regular rate and rhythm. Normal S1 and S2. No murmurs or rubs appreciated. Abdomen: Soft, nontender, nondistended, bowel sounds present. Extremities: No BLE edema. Neuro: AAOx3. No focal deficits. Objective Labs 04/11/23 04:27 04/11/23 04:27 Labs: Laboratory Results - last 24 hr 04/10/23 04/10/23 04/10/23 12:08 14:16 16:46 Corrected WBC Uncorrected WBC Count RBC Hgb Hct MCV MCH MCHC RDW Plt Count MPV Neut % (Auto) Lymph % (Auto) [place] % (Auto) Eos % (Auto) Baso % (Auto) Nucleat RBC Rel Count Neut # (Auto) Lymph # (Auto) [place] # (Auto) Eos # (Auto) Baso # (Auto) PT INR APTT PHA Creatinine Clear Sodium Potassium Chloride Carbon Dioxide Anion Gap BUN Creatinine Est GFR (CKD-EPI) POC Glucose 214 Total Creatine Kinase 238 H Troponin I High Sens 899.4 H* 1083.2 H* 04/10/23 04/10/23 04/10/23 17:47 20:21 20:21 Corrected WBC 8.9 Uncorrected WBC Count 8.9 RBC 3.96 Hgb 12.2 Hct 36.0 MCV 90.9 MCH 30.7 MCHC 33.8 RDW 14.1 Plt Count 213 MPV 9.3 Neut % (Auto) 56.6 Lymph % (Auto) 36.2 [place] % (Auto) 4.6 Eos % (Auto) 1.2 Baso % (Auto) 1.4 Nucleat RBC Rel Count 0.1 Neut # (Auto) 5.0 Lymph # (Auto) 3.2 [place] # (Auto) 0.4 Eos # (Auto) 0.1 Baso # (Auto) 0.1 PT 12.1 INR 1.0 APTT 26.1 PHA Creatinine Clear Sodium Potassium Chloride Carbon Dioxide Anion Gap BUN Creatinine Est GFR (CKD-EPI) POC Glucose Total Creatine Kinase 268 H Troponin I High Sens 1613.1 H* 04/10/23 04/10/23 04/11/23 20:59 23:26 02:36 Corrected WBC Uncorrected WBC Count RBC Hgb Hct MCV MCH MCHC RDW Plt Count MPV Neut % (Auto) Lymph % (Auto) [place] % (Auto) Eos % (Auto) Baso % (Auto) Nucleat RBC Rel Count Neut # (Auto) Lymph # (Auto) [place] # (Auto) Eos # (Auto) Baso # (Auto) PT INR APTT 29.2 PHA Creatinine Clear Sodium Potassium Chloride Carbon Dioxide Anion Gap BUN Creatinine Est GFR (CKD-EPI) POC Glucose 201 Total Creatine Kinase 242 H Troponin I High Sens 2115.2 H* 04/11/23 04/11/23 04/11/23 04:27 04:27 04:27 Corrected WBC 9.0 Uncorrected WBC Count 9.0 RBC 3.85 Hgb 11.8 Hct 35.1 MCV 91.1 MCH 30.7 MCHC 33.7 RDW 14.5 Plt Count 213 MPV 9.4 Neut % (Auto) 59.4 Lymph % (Auto) 33.4 [place] % (Auto) 5.8 Eos % (Auto) 0.9 Baso % (Auto) 0.5 Nucleat RBC Rel Count 0.1 Neut # (Auto) 5.3 Lymph # (Auto) 3.0 [place] # (Auto) 0.5 Eos # (Auto) 0.1 Baso # (Auto) 0.0 PT 12.0 INR 1.0 APTT 29.3 PHA Creatinine Clear 166.11 Sodium 136 Potassium 3.8 Chloride 101 Carbon Dioxide 26.7 Anion Gap 12.1 BUN 11 Creatinine 0.47 L Est GFR (CKD-EPI) > 60.0 POC Glucose Total Creatine Kinase Troponin I High Sens 04/11/23 04/11/23 07:36 10:56 Corrected WBC Uncorrected WBC Count RBC Hgb Hct MCV MCH MCHC RDW Plt Count MPV Neut % (Auto) Lymph % (Auto) [place] % (Auto) Eos % (Auto) Baso % (Auto) Nucleat RBC Rel Count Neut # (Auto) Lymph # (Auto) [place] # (Auto) Eos # (Auto) Baso # (Auto) PT INR APTT PHA Creatinine Clear Sodium Potassium Chloride Carbon Dioxide Anion Gap BUN Creatinine Est GFR (CKD-EPI) POC Glucose 204 Total Creatine Kinase 186 Troponin I High Sens 2287.4 H* A&P - Cardiology (1) Nicotine abuse: Code(s): Z72.0 - Tobacco use Status: Acute (2) PIPPA (obstructive sleep apnea): Code(s): G47.33 - Obstructive sleep apnea (adult) (pediatric) Status: Acute (3) Hyperlipidemia: Code(s): E78.5 - Hyperlipidemia, unspecified Status: Acute (4) Diabetes type 2, controlled: Code(s): E11.9 - Type 2 diabetes mellitus without complications Status: Acute (5) Hypertension: Code(s): I10 - Essential (primary) hypertension Status: Acute (6) Non-STEMI (non-ST elevated myocardial infarction): Code(s): I21.4 - Non-ST elevation (NSTEMI) myocardial infarction Status: Acute Plan Ms. Mitchell is a 47 year old female with past medical history significant for hypertension, hyperlipidemia, diabetes type 2, active tobacco use, morbid obesity, PIPPA not on CPAP who presents with a 1 week history of intermittent left-sided chest pain radiating to the jaws bilaterally. This has gotten progressively worse in the last 2 days. Associated with nausea. Aggravated by exertion and relieved by nitroglycerin. She denies dyspnea, orthopnea, PND, BLEedema, weight gain, palpitations, lightheadedness or syncope. Patient has not had any prior symptoms in the past. She does report that her older brother recently had bypass surgery. Father alsohad premature CAD. Patient initially presented to [facility] where troponin was positive: 248-256. BNP elevated at 1327. EKG showed sinus tachycardia. Echo today shows EF of 25-30% with grade 1 diastolic dysfunction. Trace MR, trace TR. Troponin trend on arrival [phone] Assessment: NSTEMI Systolic heart failure. Euvolemic Hypertension Hyperlipidemia Diabetes type 2 Active tobacco use Family history of premature CAD Morbid obesity PIPPA not compliant with CPAP Recommendations: -LHC today to evaluate coronaries. -Continue heparin gtt. -Continue aspirin, statin, losartan 50 mg daily. Will start spironolactone and SGLT2 inhibitor after LHC. -She will need LifeVest on discharge -Will follow. Documented By: Stephanie Sweet MD 04/11/23 1208 Signed By: <Electronically signed by Stephanie Sweet MD> 04/11/23 1312 [facility] Work Phone: [phone]) 842-425911-09-[address] [facility]11-09-[address] [facility]11-09-2023 Progress note Author Florentino Kenyon [facility] April 11, 2023 9:50am Note Date/Time April 11, 2023 9 :48am [facility] [address] [place] [address] Hospitalist Progress Note Signed Patient: Mikayla Mitchell MR#: [id number] : 1975 Acct:[id number] Age/Sex: 47 / F Adm Date: 3 Loc: Room: [address] [place] [address] Type: ADM IN Attending Dr: Florentino Kenyon MD Copies to: ~ Date of Service: 04/11/2023 Subjective Subjective Narrative: 47-year-old white female past medical history obesity, hypertension, hyperlipidemia, diabetes type 2 and nicotine abuse who present emergency room with chest pain. She has been complaint of chest pain since last night. The pain is located in the midsternal area. The pain is pressure pain in nature. Started to her jaw. Associated with nausea. There are no aggravating or elevating factors. No vomiting. She denies any shortness of breath. No orthopnea PND. She denies having cough. No fever or chills. She denies of anyabdominal pain. No diarrhea. No constipation. She denies having dysuria, hematuria, frequency. No admissions, melena, or hematochezia. Doing Ok No chest pain No SOB NO cough Exam Physical Exam Vital Signs: Temp Pulse Resp BP Pulse Ox O2 Del Method 97.5 F L 98 H 16 135/87 98 Room Air 04/11/23 08:00 04/11/23 08:00 04/11/23 08:00 04/11/23 08:00 04/11/23 08:00 04/11/23 08:00 Narrative: General patient laying in bed in no acute distress alert awake oriented x3 HEENT PERRLA Neck supple no JVD no carotid bruit CVS S1-S2 regular rate and rhythm no murmur no gallop Chest clear to auscultation percussion Abdomen soft bowel sounds normoactive no rebound no guarding Extremities no stenosis no clubbing no edema Musculoskeletal exam normal no joint effusion Neurologic exam oriented x3 alert awake no focal left Psychiatry: Normal insight and judgment Skin exam: No rash no lesions Objective Lab Results 04/11/23 04:27 04/11/23 04:27 Meds Allergies and Active Meds Allergies No Known Allergies Allergy (Verified 04/10/23 10:38) Active Meds: Active Medications Generic Name Dose Route Start Last Admin Trade Name Freq PRN Reason Stop Dose Admin Acetaminophen 650 mg 04/10/23 10:57 04/10/23 17:15 Acetaminophen 325 Mg Tablet PO 04/09/24 10:56 650 mg Q6HR PRN Administration Pain Scale 1 - 3 or fever Aspirin 81 mg 04/10/23 11:15 04/11/23 08:17 Aspirin 81 Mg Tablet.Dr ADAME 04/09/24 11:14 81 mg DAILY ALDO Administration Atorvastatin Calcium 80 mg 04/10/23 21:00 04/10/23 21:34 Atorvastatin 80 Mg Tablet PO 04/09/24 20:59 80 mg QPM ALDO Administration Bisacodyl 10 mg 04/10/23 10:57 Bisacodyl 5 Mg Tablet.Dr PO 04/09/24 10:56 DAILY PRN Constipation Dextrose 0 gm 04/10/23 10:57 Dextrose 50% In Water 25 Gm/50 Ml Syringe IV-PUSH 04/09/24 10:56 PRN PRN Hypoglycemia Glucose 0 gm 04/10/23 10:57 Dextrose 40% Gel 15 Gm Tube PO 04/09/24 10:56 PRN PRN Hypoglycemia Heparin Sodium (Porcine) 2,800 unit 04/10/23 19:54 Heparin *Protocol Bolus* 5,000 Unit/Ml Vial IV-PUSH 04/09/24 19:53 PROTOCOL PRN PTT 40-53 Heparin Sodium (Porcine) 4,000 unit 04/10/23 19:54 Heparin *Protocol Bolus* 5,000 Unit/Ml Vial IV-PUSH 04/09/24 19:53 PROTOCOL PRN PTT < 40 Hydralazine HCl 10 mg 04/11/23 03:46 Hydralazine 20 Mg/Ml Vial IV-PUSH 04/10/24 03:45 Q4H PRN if SBP > 185, DBP > 105 Sodium Chloride 1,000 mls @ 100 mls/hr 04/11/23 09:00 0.9% Sodium Chloride 1,000 Ml IV 04/10/24 08:59 .Q10H ALDO Heparin Sodium/Sodium Chloride 25,000 unit in 250 mls @ 8 mls/hr 04/10/23 20:00 04/11/23 04:10 Heparin IV 04/11/23 10:00 1,100 units/hr .Q24H ALDO 11 mls/hr Titration Protocol 800 UNITS/HR Insulin Aspart 0 units 04/10/23 12:00 04/11/23 08:18 Insulin Aspart 300 Units/3 Ml Insuln.Pen SUBCUT 04/09/24 11:59 1 units TID.WM.HS ALDO Administration Protocol Losartan Potassium 50 mg 04/11/23 09:00 04/11/23 08:17 Losartan 50 Mg Tablet PO 04/10/24 08:59 50 mg QAM ALDO Administration Melatonin 5 mg 04/10/23 10:57 Melatonin 5 Mg Tablet PO 04/09/24 10:56 QHS PRN Insomnia Miscellaneous Information 1 each 04/10/23 15:32 Consult To Pharmacy MISCELLANE 04/09/24 15:31 .PHACONSULT PRN ZZ.Pharmacy Consult Protocol Ondansetron HCl 4 mg 04/10/23 10:57 Ondansetron 4 Mg/2 Ml Vial IV-PUSH 04/09/24 10:56 Q8H PRN Nausea And Vomiting Sodium Chloride 0 ml 04/10/23 15:32 Sodium Chloride 0.9 % 10 Ml Syringe IV-PUSH 04/09/24 15:31 PRN PRN Flush A&P - Hospitalist Assessment/Plan (1) Non-STEMI (non-ST elevated myocardial infarction): (2) Hypertension: (3) Diabetes type 2, controlled: (4) Hyperlipidemia: (5) Nicotine abuse: (6) PIPPA (obstructive sleep apnea): Plan 47-year-old white female past medical history obesity, hypertension, hyperlipidemia, diabetes type 2 and nicotine abuse who present emergency room with chest pain. She has been complaint of chest pain since last night. The pain is located in the midsternal area. The pain is pressure pain in nature. Started to her jaw. Associated with nausea. There are no aggravating or elevating factors. No vomiting. She denies any shortness of breath. No orthopnea PND. She denies having cough. No fever or chills. She denies of anyabdominal pain. No diarrhea. No constipation. She denies having dysuria, hematuria, frequency. No admissions, melena, or hematochezia. Assessment and plan Non-STEMI Seen and examined Clinically stable No chest pain No SOB NPO On Heparin infusion Echocardiogram The left ventricular size and thickness are normal. Ejection Fraction = 25-30%. The LV ejection fraction is severely decreased . A variety of Doppler measurements indicate impaired left ventricular relaxation, which is associated with grade I/IV or mild diastolic dysfunction. There is trace mitral regurgitation. There is trace tricuspid regurgitation. There is no comparison study available. Losartan PO daily 50 mg Add Coreg PO BID 3.125 mg Lipitor daily Plan for cardiac cath today Cardiology is following Hypertension: Add losartan 25 mg daily Diabetes type 2: Accu-Chek/ ACHS insulin sliding scale/ hold metformin for now/ Hyperlipidemia:: Lipitor 80 mg daily Obstructive sleep apnea: Sleep apnea as outpatient Obesity: Lifestyle modification Nicotine abuse nicotine patch: Documented By: Florentino Kenyon MD 04/11/2345 Signed By: <Electronically signed by Florentino Kenyon MD> 04/11/23 0950 [facility] Work Phone: [phone] Consult note Author Stephanie Sweet [facility] April 10, 2023 8:00pm Note Date/Time April 10, 2023 7 :53pm [facility] [address] [place] [address] Cardiology Consult Note Signed Patient: Mikayla Mitchell MR#: [id number] : 1975 Acct:[id number] Age/Sex: 47 / F Adm Date: 3 Loc: Room: [address] [place] [address] Type: ADM IN Attending Dr: Florentino Kenyon MD Copies to: MD Stephanie Skinner MD Marcia E Braun, MD~ Cardiology HPI History of Present Illness Consult Date: 04/10/23 Reason for Consult: Elevated troponin and chest pain HPI: Ms. Mitchell is a 47 year old female with past medical history significant for hypertension, hyperlipidemia, diabetes type 2, active tobacco use, morbid obesity, PIPPA not on CPAP who presents with a 1 week history of intermittent left-sided chest pain radiating to the jaws bilaterally. This has gotten progressively worse in the last 2 days. Associated with nausea. Aggravated by exertion and relieved by nitroglycerin. She denies dyspnea, orthopnea, PND, BLEedema, weight gain, palpitations, lightheadedness or syncope. Patient has not had any prior symptoms in the past. She does report that her older brother recently had bypass surgery. Father alsohad premature CAD. Patient initially presented to [facility] where troponin was positive: 248-256. BNP elevated at 1327. EKG showed sinus tachycardia. Echo today shows EF of 25-30% with grade 1 diastolic dysfunction. Trace MR, trace TR. Review of Systems Review of Systems All other systems reviewed & are negative unless noted below or in HPI [facility] Medical History (Updated 04/10/23 @ 11:06 by Florentino Kenyon MD) Diabetes PIPPA (obstructive sleep apnea) Surgical History (Updated 04/10/23 @ 10:35 by Kathya Arambula RN) H/O: hysterectomy History of cholecystectomy Family History (Updated 04/10/23 @ 10:35 by Kathya Arambula RN) Sister Pancreatic cancer Father Colon cancer Father Myocardial infarction Mother Stroke Brother S/P CABG x 4 Social History Smoking Status: Current every day smoker Meds Medications and Allergies Allergies No Known Allergies Allergy (Verified 04/10/23 10:38) Home Medications metformin 500 mg tablet,extended release 24 hr 500 mg PO BID 04/10/23 [History Confirmed 04/10/23] Exam Physical Exam Vital Signs: Temp Pulse Resp BP Pulse Ox O2 Del Method 97.8 F 99 H 16 159/97 H 96 Room Air 04/10/23 17:02 04/10/23 18:40 04/10/23 17:02 04/10/23 18:40 04/10/23 17:02 04/10/23 17:02 Narrative: GEN: AAOx3. No acute distress. Lying comfortably flat in bed Neck: No JVD. Lungs: Clear to auscultation bilaterally Heart: Regular rate and rhythm. Normal S1 and S2. No murmurs or rubs appreciated. Abdomen: Soft, nontender, nondistended, bowel sounds present. Extremities: No BLE edema. Neuro: AAOx3. No focal deficits. Results Labs Lab results: Cardiac Enzymes 04/10/23 04/10/23 04/10/23 Range/Units 12:08 14:16 17:47 Total Creatine Kinase 210 238 H 268 H (30-223) U/L Intake and Output 04/10/23 04/10/23 04/10/23 07:59 15:59 23:59 Intake Total 300 / 300 Balance 300 / 300 Intake: Oral 300 / 300 Other: # Unmeasured Voids 2 Weight 88.9 kg Date of Last Bowel Movement 04/08/23 Patient Weight 04/10/23 23:59 Weight 88.9 kg A&P - Cardiology (1) Nicotine abuse: Code(s): Z72.0 - Tobacco use (2) PIPPA (obstructive sleep apnea): Code(s): G47.33 - Obstructive sleep apnea (adult) (pediatric) (3) Hyperlipidemia: Code(s): E78.5 - Hyperlipidemia, unspecified (4) Diabetes type 2, controlled: Code(s): E11.9 - Type 2 diabetes mellitus without complications (5) Hypertension: Code(s): I10 - Essential (primary) hypertension (6) Non-STEMI (non-ST elevated myocardial infarction): Code(s): I21.4 - Non-ST elevation (NSTEMI) myocardial infarction Plan Ms. Mitchell is a 47 year old female with past medical history significant for hypertension, hyperlipidemia, diabetes type 2, active tobacco use, morbid obesity, PIPPA not on CPAP who presents with a 1 week history of intermittent left-sided chest pain radiating to the jaws bilaterally. This has gotten progressively worse in the last 2 days. Associated with nausea. Aggravated by exertion and relieved by nitroglycerin. She denies dyspnea, orthopnea, PND, BLEedema, weight gain, palpitations, lightheadedness or syncope. Patient has not had any prior symptoms in the past. She does report that her older brother recently had bypass surgery. Father alsohad premature CAD. Patient initially presented to [facility] where troponin was positive: 248-256. BNP elevated at 1327. EKG showed sinus tachycardia. Echo today shows EF of 25-30% with grade 1 diastolic dysfunction. Trace MR, trace TR. Troponin trend on arrival [phone] Assessment: NSTEMI Systolic heart failure. Euvolemic Hypertension Hyperlipidemia Diabetes type 2 Active tobacco use Family history of premature CAD Morbid obesity PIPPA not compliant with CPAP Recommendations: -Start heparin drip for ACS. -We will plan for LHC tomorrow to evaluate coronaries. N.p.o. past midnight -Continue aspirin, statin, losartan 50 mg daily. Will start spironolactone and SGLT2 inhibitor after LHC. - She will need LifeVest on discharge - Will follow. Documented By: Stephanie Sweet MD 04/10/231751 Signed By: <Electronically signed by Stephanie Sweet MD> 04/10/231999 [facility] Work Phone: [phone] 159-561411-08-2023 History and physical note Author Florentino Kenyon [facility] April 10, 2023 11:10am Note Date/Time April 10, 2023 1 1:10am [facility] [address] [place] [address] Hospitalist H&P Signed Patient: Mikayla Mitchell MR#: [id number] : 1975 Acct:[id number] Age/Sex: 47 / F Adm Date: 3 Loc: 4P Room: [address] [place] [address] Type: ADM IN Attending Dr: Florentino Kenyon MD Copies to: MD Shilpa Skinner MD~ HPI DATE OF EXAMINATION: 04/10/23 CHIEF COMPLAINT: Chest pain HISTORY OF PRESENT ILLNESS: 47-year-old white female past medical history obesity, hypertension, hyperlipidemia, diabetes type 2 and nicotine abuse who present emergency room with chest pain. She has been complaint of chest pain since last night. The pain is located in the midsternal area. The pain is pressure pain in nature. Started to her jaw. Associated with nausea. There are no aggravating or elevating factors. No vomiting. She denies any shortness of breath. No orthopnea PND. She denies having cough. No fever or chills. She denies of anyabdominal pain. No diarrhea. No constipation. She denies having dysuria, hematuria, frequency. No admissions, melena, or hematochezia. Review of Systems Review of Systems All other systems reviewed & are negative unless noted below or in HPI [facility] Medical History (Updated 04/10/23 @ 11:06 by Florentino Kenyon MD) Diabetes PIPPA (obstructive sleep apnea) Surgical History (Updated 04/10/23 @ 10:35 by Kathya Arambula RN) H/O: hysterectomy History of cholecystectomy Family History (Updated 04/10/23 @ 10:35 by Kathya Arambula RN) Sister Pancreatic cancer Father Colon cancer Father Myocardial infarction Mother Stroke Brother S/P CABG x 4 Social History Smoking Status: Current every day smoker Meds Medications and Allergies Allergies No Known Allergies Allergy (Verified 04/10/23 10:38) Home Medications metformin 500 mg tablet,extended release 24 hr 500 mg PO BID 04/10/23 [History Confirmed 04/10/23] Exam Physical Exam Vital Signs: Temp Resp BP Pulse Ox O2 Del Method 97.9 F 16 163/103 H 95 Room Air 04/10/23 10:18 04/10/23 10:18 04/10/23 10:18 04/10/23 10:18 04/10/23 10:18 Narrative: General patient laying in bed in no acute distress alert awake oriented x3 HEENT PERRLA Neck supple no JVD no carotid bruit CVS S1-S2 regular rate and rhythm no murmur no gallop Chest clear to auscultation percussion Abdomen soft bowel sounds normoactive no rebound no guarding Extremities no stenosis no clubbing no edema Musculoskeletal exam normal no joint effusion Neurologic exam oriented x3 alert awake no focal left Psychiatry: Normal insight and judgment Skin exam: No rash no lesions Assessment & Plan Assessment/Plan (1) Non-STEMI (non-ST elevated myocardial infarction): (2) Hypertension: (3) Diabetes type 2, controlled: (4) Hyperlipidemia: (5) Nicotine abuse: (6) PIPPA (obstructive sleep apnea): Plan 47-year-old white female past medical history obesity, hypertension, hyperlipidemia, diabetes type 2 and nicotine abuse who present emergency room with chest pain. She has been complaint of chest pain since last night. The pain is located in the midsternal area. The pain is pressure pain in nature. Started to her jaw. Associated with nausea. There are no aggravating or elevating factors. No vomiting. She denies any shortness of breath. No orthopnea PND. She denies having cough. No fever or chills. She denies of anyabdominal pain. No diarrhea. No constipation. She denies having dysuria, hematuria, frequency. No admissions, melena, or hematochezia. Assessment and plan Non-STEMI Inpatient admission Admit to stepdown Patient will require more than 2 nights in the hospital Cardiac telemetry Keep n.p.o. Aspirin daily Lipitor 80 mg daily Heparin infusion/hold until seen by cardiology for possible cardiac cath Troponin x3 Cardiology consult Echocardiogram Lipid panel in the morning Hemoglobin A1c in the morning Hypertension: Add losartan 25 mg daily Diabetes type 2: Accu-Chek/ ACHS insulin sliding scale/ hold metformin for now/ Hyperlipidemia:: Lipitor 80 mg daily Obstructive sleep apnea: Sleep apnea as outpatient Obesity: Lifestyle modification Nicotine abuse nicotine patch: IP vs OBS Justification Based on differential dx, clinical care plan, and risk of adverse events, if untreated, in my clinical judgement this patient requires an acute care setting as: INPATIENT because of an expectation of an over 2 midnight stay. Estimated length of stay (# of days): 3 Documented By: Florentino Kenyon MD 04/10/23 1102 Signed By: <Electronically signed by Florentino Keynon MD> 04/10/23 1110 [facility] Work Phone: Evaluation note* Diagnosis Onset Date Resolution Status Diabetes type 2, controlled acute Hyperlipidemia acute Hypertension acute Nicotine abuse acute Non-STEMI (non-ST elevated myocardial infarction) acute PIPPA (obstructive sleep apnea) acute [facility] Work Phone: Evaluation noteNo InformationNortEncompass Health [facility] Other History general Narrative - Reported* Type Description Date Medical History Problem Title : Acut e pharyngitis due to other specified organisms [], Problem Description : Acute pharyngitis due to other specified organisms [], Problem Comment : Acute pharyngitis due to other specified organisms, Problem Status : Active,, Medical History Problem Title : past medical history E&M, Problem Description : past medical history E&M, Problem Comment : Ovarian cysts PIPPA (Wears CPAP), Problem Status : Active,, Medical History Problem Title : smok ing/tobacco cessation, patient education and counseling, Problem Description : smoking/tobacco cessation, patient education and counseling, Problem Comment : yes, Problem Status : Active,, Medical History Problem Title : very low density lipoproteins, Problem Description : very low density lipoproteins, Problem Comment : 240.0, Problem Status : Active,, Surgical History Problem Title : past surgical history reviewed, Problem Description : past surgical history reviewed, Problem Comment : reviewed - no changes required, Problem Status : Active, Surgical History 1: Problem Title : s urgical procedures, hx of, Problem Description : surgical procedures, hx of, Problem Comment : Cholecystectomy Lap - [facility] 2008 Umbilical hernia repair - - 2007 3 cysts removed from ovaries 1996 2003 Surgical History 2: Tonsils and adenoids , Probl em Status : Active, Surgical History 1: Problem Title : s urgical procedures, hx of, Problem Description : surgical procedures, hx of, Problem Comment : Cholecystectomy Lap 2008 Umbilical hernia repair 3 cysts removed from ovaries 1996 2003 Tonsils and adenoids , Problem Surgical History 2: Status : Active, Surgical History cath/PCI 04/2023 Hospitalization History NSTEMI 04/2023 [facility] Other Progress note Author Stephanie Sweet [facility] April 12, 2023 2:38pm Note Date/Time April 12, 2023 2:30pm [facility] [address] [place] [address] Cardiology Progress Note Signed Patient: Mikayla Mitchell MR#: [id number] : 1975 Acct:[id number] Age/Sex: 47 / F Adm Date: 3 Loc: Room: [address] [place] [address] Type: ADM IN Attending Dr: Florentino Kenyon MD Copies to: ~ Date of Service: 04/12/2023 Subjective Principal diagnosis: NSTEMI Interval history: Ms. Mitchell is a 47 year old female with past medical history significant for hypertension, hyperlipidemia, diabetes type 2, active tobacco use, morbid obesity, PIPPA not on CPAP who presents with a 1 week history of intermittent left-sided chest pain radiating to the jaws bilaterally. This has gotten progressively worse in the last 2 days. Associated with nausea. Aggravated by exertion and relieved by nitroglycerin. She denies dyspnea, orthopnea, PND, BLEedema, weight gain, palpitations, lightheadedness or syncope. Patient has not had any prior symptoms in the past. She does report that her older brother recently had bypass surgery. Father alsohad premature CAD. Patient initially presented to [facility] where troponin was positive: 248-256. BNP elevated at 1327. EKG showed sinus tachycardia. Echo today shows EF of 25-30% with grade 1 diastolic dysfunction. Trace MR, trace TR. Interim history 04/11/2023: Troponin continues to uptrend 899-->2200. Reports minimal chest pain today. Heparin drip restarted last night. LHC today Interim history 04/12/2023: Status post LHC and PCI to LAD. No acute events overnight. Denies chest pain, shortness of breath, palpitations, dizziness. EKGtoday shows normal sinus rhythm with incomplete LBBB. No ischemic changes. Exam Physical Exam Vital Signs: Temp Pulse Resp BP Pulse Ox O2 Del Method FiO2 98.7 F 82 18 113/69 95 Room Air 21 04/12/23 11:44 04/12/23 11:44 04/12/23 11:44 04/12/23 11:44 04/12/23 11:44 04/12/23 11:44 04/12/23 04:33 Narrative: GEN: AAOx3. No acute distress. Sitting comfortably at the edge of the bed. Neck: No JVD. Lungs: Clear to auscultation bilaterally Heart: Regular rate and rhythm. Normal S1 and S2. No murmurs or rubs appreciated. Abdomen: Soft, nontender, nondistended, bowel sounds present. Extremities: No BLE edema. Right radial access site with dressing. Clean dry and intact. No swelling or tenderness. Neuro: AAOx3. No focal deficits. Objective Labs 04/11/23 04:27 04/11/23 04:27 Labs: Laboratory Results - last 24 hr 04/11/23 04/11/23 04/12/23 16:01 20:35 04:34 POC Glucose 221 200 POC Glucose Comment Glu2: cleaned meter Troponin I High Sens 3417.1 H* 04/12/23 04/12/23 07:37 11:44 POC Glucose 219 226 POC Glucose Comment Troponin I High Sens A&P - Cardiology (1) Nicotine abuse: Code(s): Z72.0 - Tobacco use Status: Acute (2) PIPPA (obstructive sleep apnea): Code(s): G47.33 - Obstructive sleep apnea (adult) (pediatric) Status: Acute (3) Hyperlipidemia: Code(s): E78.5 - Hyperlipidemia, unspecified Status: Acute (4) Diabetes type 2, controlled: Code(s): E11.9 - Type 2 diabetes mellitus without complications Status: Acute (5) Hypertension: Code(s): I10 - Essential (primary) hypertension Status: Acute (6) Non-STEMI (non-ST elevated myocardial infarction): Code(s): I21.4 - Non-ST elevation (NSTEMI) myocardial infarction Status: Acute Plan Ms. Mitchell is a 47 year old female with past medical history significant for hypertension, hyperlipidemia, diabetes type 2, active tobacco use, morbid obesity, PIPPA not on CPAP who presents with a 1 week history of intermittent left-sided chest pain radiating to the jaws bilaterally. This has gotten progressively worse in the last 2 days. Associated with nausea. Aggravated by exertion and relieved by nitroglycerin. She denies dyspnea, orthopnea, PND, BLEedema, weight gain, palpitations, lightheadedness or syncope. Patient has not had any prior symptoms in the past. She does report that her older brother recently had bypass surgery. Father alsohad premature CAD. Patient initially presented to [facility] where troponin was positive: 248-256. BNP elevated at 1327. EKG showed sinus tachycardia. Echo today shows EF of 25-30% with grade 1 diastolic dysfunction. Trace MR, trace TR. Troponin trend on arrival [phone] Assessment: NSTEMI Systolic heart failure. Euvolemic Hypertension Hyperlipidemia Diabetes type 2 Active tobacco use Family history of premature CAD Morbid obesity PIPPA not compliant with CPAP Recommendations: - [facility] 04/11/2023 consistent with severe two-vessel CAD-70% proximal LAD and 100% proximal RCA. Status post PCI to proximal LAD with 3.5 x 15 mm Garth NILSA. 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 Appreciate Dr Cortez's assistance in this case. -Continue DAPT-aspirin 81 mg daily plus Brilinta 90 mg twice daily for at least a year. -Continue atorvastatin 80 mg, losartan 50 mg daily, carvedilol 3.125 mg twice daily. Start spironolactone 25 mg daily. Will start SGLT2 inhibitor as outpatient. Patient is euvolemic and has no diuretic indications. -[facility] arranged for discharge. We will repeat echo in 3 months and if EF is less than 35%, will refer to EP for ICD implantation. -Discussed smoking cessation. Patient is not willing to quit at this time. Discussed resources that are available should she change her mind. -2-week follow-up with [facility] cardiology. Documented By: Stephanie Sweet MD 04/12/23 1129 Signed By: <Electronically signed by Stephanie Sweet MD> 04/12/23 1438 [facility] Work Phone: Reason for visit NarrativeCARDIAC REHAB REFERRAL [facility]AT[facility] [place] Other Summary Purpose Family History Relationship Condition Age at Onset Recorded Date/T liam sister Malignant neoplasm of pancreas Unknown father Malignant neoplasm of colon Unknown father Myocardial infarction Unknown Not Specified Cerebrovascular accident (CVA) Unknown brother Status post four ves jazmine coronary artery bypass Unknown Advance Directives Advance Directive Response Recorded Date/ Time Advance Directives No November 15 12:56pm Chief Complaint and Reason for Visit Chief Complaint Non Stemi Reason for Visit Diabetes type 2, con trolled Hyperlipidemia Hypertension Nicotine abuse Non-STEMI (non-ST elevated myocardial infarction) PIPPA (obstructive sleep apnea) Reason for Referral Reason Cardiac rehab Diagnosis 1 Ischemic cardiomyopa thy (I25.5) Diagnosis 2 Post PTCA (Z98.61) Diagnosis 3 History of non-ST el evation myocardial infarction (NSTEMI) (I25.2) Referral Organization [facility] Referring Provider First Name Stephanie Referring Provider Last Name Kee Referring Provider Specialty Cardiovascu lar Disease Referred Organization [facility] [address]erred Address [address] [place], [place],[address] Referred Provider Specialty Cardiology Referral Priority Routine General Notes Cecilia Acuña 02:15:12 PM >received today, attachments made, waiting for notes to be locked Clinical Notes central scheduling f: [phone] Additional Source Comments INFORMATION SOURCE (unrecogn ized section and content) DATE CREATED AUTHOR 08/19/2020 [facility] DATE CREATED AUTHOR AUTHOR'S ORGANIZ ATION 01/08/2022 [facility] DATE CREATED AUTHOR AUTHOR'S ORGANIZ ATION 05/10/2023 [facility] Care Teams (unrecognized sec tion and content) Team Status: Active Member Role Status Dates Shilpa Lewis MD Primary Care Provider Active Team Status: Inactive Member Role Status Dates Shilpa Lewis MD Primary Care Provider Active Florentino Kenyon MD Admit Provider, Attending Provider A ctive REASON FOR VISIT (unrecogniz ed section and content) [facility] [place] 2WKSClinical Acute Ill nessClinical FOR RECORDS PERTAINING TO PATIENTS WHO ARE OR HAVE BEEN ENROLLED IN A CHEMICAL DEPENDENCY/SUBSTANCEABUSE PROGRAM, SOME INFORMATION MAY BE OMITTED. This clinical summary was aggregated from multiple sources. Caution should be exercised in using it in the provision of clinical care. This summary normalizes information from multiple sources, and as a consequence, information in this document may materially change the coding, format and clinical context of patient data. In addition, data may be omitted in some cases. CLINICAL DECISIONS SHOULD BE BASED ON THE PRIMARY CLINICAL RECORDS. [facility]. provides no warranty or guarantee of the accuracy or completeness of information in this document.
[2023-07-06 11:21] LABS: Alanine Aminotransferase 37 U/L (14-59); Aspartate Amino Transferase 13 U/L (15-37); Chol HDL Ratio 3.8; Cholesterol 124 mg/dL (<=200); HDL Cholesterol 33 mg/dL (40-60); Triglycerides 271 mg/dL (<=150); VLDL CHOLESTEROL 54.2 mg/dL
== END 2023-07-06 10:19 | disposition home or self-care (01) ==
LOC: LAB 10:19
PROVIDERS: PCP Nurse Practitioner; Visit Provider Nurse Practitioner
DX: I25.119 Atherosclerotic heart disease of native coronary artery with unspecified angina pectoris (principal)
CPT/HCPCS: 36415; 80061; 84450; 84460

== ENCOUNTER 2023-07-22 19:56 | Outpatient (OUT) | payer OTHER, SELFPAY ==
--- OUTSIDE RECORDS SUMMARY | 2023-07-22 19:58 | XMS_ITS | CCD ---
Author Name Unknown Address [address] [facility] [address] [place] [address] Organization [facility] Care Team Providers Care Land Acquisition Manager Name Role Phone DR SHILPA LEWIS Admitting Unavailable DR SHILPA LEWIS Attending Unavailable DR SHILPA LEWIS Primary Care Unavailable DR SHILPA LEWIS Consulting Unavailable MD Shilpa Lewis Primary Care Provider MD Florentino Kenyon Admit Provider MD Florentino Kenyon Attending Provider [phone] Stephanie Sweet Unavailable Nelida Ambrosio NP Unavailable Thom Weinberg MD Primary Care Provider [phone] MD Shilpa Lewis Primary Care Provider MD Stephanie Sweet Attending Provider [phone] NELIDA AMBROSIO Attending Unavailable NELIDA AMBROSIO Attending Unavailable Florentino Kenyon Admitting Unavailable Florentino Kenyon Attending Unavailable Shilpa Lewis Primary Care Unavailable Stephanie Sweet Consulting Unavailable Stephanie Sweet Attending Unavailable Shilpa Lewis Primary Care Unavailable Stephanie Sweet Admitting Unavailable Medications Current Medications Medication Drug Class(es) Dates Sig (Normalized) Sig (Original) aspirin 81 mg delayed release oral tablet (10 sources) Platelet Aggregation Inhibitor, Nonsteroidal Anti-inflammatory Drug Start: 04-12-2023 take 1 tablet by mouth in the morning [facility] Aspirin Low Dose 81 MG EC tablet Take 81 mg by mouth in the morning. 0 04/12/2023 Active atorvastatin 80 mg oral tablet (10 sources) HMG-CoA Reductase Inhibitor Start: 04-12-2023 End: 10-06-2023 take 1 tablet by mouth at bedtime atorvastatin (Lipitor) 80 MG tablet Indications: Mixed hyperlipidemia (CMS/HCC) , Coronary artery disease involving [place] coronary artery of [place] heart with angina pectoris (CMS/HCC) Take 1 tablet (80 mg) by mouth at bedtime 90 tablet 1 07/08/2023 10/06/2023 Active Blood Glucose Monitoring Suppl (True Metrix Meter) w/Device kit (4 sources) Start: 04-19-2023 Blood Glucose Monitoring Suppl (True Metrix Meter) w/Device kit USE 1 DAILY 0 04/19/2023 Active busPIRone hydrochloride 7.5 mg oral tablet (10 sources) Start: 07-11-2023 End: 08-10-2023 take 1 tablet by mouth in the morning busPIRone (Buspar) 7.5 MG tablet Indications: Anxiety Take 1 tablet (7.5 mg) by mouth in the morning and 1 tablet (7.5 mg) before bedtime. 60 tablet 2 07/11/2023 08/10/2023 Active Start: 06-05-2023 End: 10-06-2023 take 1 tablet by mouth in the morning busPIRone (Buspar) 5 MG tablet Indications: Anxiety state (CMS/HCC) Take 1 tablet (5 mg) by mouth in the morning and 1 tablet (5 mg) before bedtime. 180 tablet 0 07/08/2023 07/11/2023 Discontinued (Ineffective) carvedilol 6.25 mg oral tablet (10 sources) alpha-Adrenergic Raina, beta-Adrenergic Raina Start: 04-12-2023 End: 09-30-2023 take 1 tablet by mouth in the morning carvedilol (Coreg) 6.25 MG tablet Indications: Acute heart failure, unspecified heart failure type (CMS/HCC) , Essential (primary) hypertension (CMS/HCC) , Coronary artery disease involving [place] coronary artery of [place] heart with angina pectoris (CMS/HCC) Take 1 tablet (6.25 mg) by mouth in the morning and 1 tablet (6.25 mg) in the evening. Take with meals. 180 tablet 1 07/02/2023 09/30/2023 Active dapagliflozin 5 mg oral tablet (2 sources) Sodium-Glucose Cotransporter 2 Inhibitor take 5 mg by mouth in the morning dapagliflozin (Farxiga) 5 MG Indications: Heart Failure , Type 2 Diabetes Mellitus Take 5 mg by mouth in the morning. 0 Active isopropyl alcohol 0.7 ml/ml medicated pad (4 sources) Start: 04-17-2023 Alcohol Swabs ([facility] Alcohol Prep Pads) 70 % pads USE 1 PER DAY 0 04/17/2023 Active 24 hr isosorbide mononitrate 30 mg extended release oral tablet (8 sources) Nitrate Vasodilator Start: 05-01-2023 take 1 tablet by mouth in the morning, then take 1 tablet by mouth every twenty-four hours isosorbide mononitrate ER (Imdur) 30 MG 24 hr tablet Take 30 mg by mouth in the morning. 0 05/01/2023 Active levothyroxine sodium 0.025 mg oral tablet (8 sources) l-Thyroxine Start: 05-29-2023 End: 10-06-2023 take 1 tablet by mouth before mealtime levothyroxine (Synthroid, Levoxyl) 25 MCG tablet Indications: Hypothyroidism, unspecified type (CMS/HCC) Take 1 tablet (25 mcg) by mouth in the morning. Take before meals. 90 tablet 0 07/08/2023 10/06/2023 Active Start: 05-09-2022 take 1 tablet by juan m th once daily as needed Levothyroxine 75mcg levothyroxine 75mcg, 1 (one) Tablet daily # 90, 05/09/2022, No Refill. Active oral daily for 0 *Reorder from [employer] for eRx and Interaction Alerts* May, Not-Taking/PRN Start: 05-09-2022 take 1 tablet by juan m th once daily Levothyroxine 75mcg levothyroxine 75mcg, 1 (one) Tablet daily # 90, 05/09/2022, No Refill. Active oral daily for 0 *Reorder from [employer] for eRx and Interaction Alerts* May, Not-Taking losartan potassium 25 mg oral tablet (10 sources) Angiotensin 2 Receptor Raina Start: 05-08-2023 take 1 tablet by mouth every twenty-four hours Losartan Potassium 25 MG 1 tablet Orally Once a day for 30 days May, Active Start: 04-12-2023 take 50 mg by mouth once daily in the morning Losartan Active 50 MG PO Every morning April 12, 2023 12:00am metFORMIN hydrochloride 500 mg oral tablet (10 sources) Biguanide Start: 05-20-2023 End: 10-06-2023 take 2 tablets by mouth in the morning metFORMIN (Glucophage) 500 MG tablet Indications: Type 2 diabetes mellitus with hyperglycemia, without long-term current use of insulin ([facility]) Take 2 tablets (1,000 mg) by mouth in the morning and 2 tablets (1,000 mg) in the evening. Take with meals. 360 tablet 1 07/08/2023 10/06/2023 Active Start: 04-10-2023 take 500 mg by mouth twice daily Metformin Active 500 MG PO Twice daily April 10, 2023 12:00am Start: 04-02-2022 take 1 tablet by juan m th twice daily Metformin 500mg metFORMIN 500mg, 1 (one) Tablet two times daily # 180, 04/02/2022, Ref. x3. Active oral two times daily for 0 *Reorder from [employer] for eRx and Interaction Alerts* Mar, Active nitroglycerin 0.4 mg sublingual tablet (10 sources) Nitrate Vasodilator Start: 04-12-2023 nitroglyce rin (Nitrostat) 0.[address] 0.4 mg under the tongue every 5 (five) minutes if needed 0 05/09/2023 Active Nitroglycerin 0. 4 MG as directed Sublingual Active sertraline 50 mg oral tablet (4 sources) Serotonin Reuptake Inhibitor Start: 06-04-2023 End: 10-06-2023 take 1 tablet by mouth in the morning sertraline (Zoloft) 50 MG tablet Indications: Anxiety Take 1 tablet (50 mg) by mouth in the morning. 90 tablet 0 07/08/2023 10/06/2023 Active spironolactone 25 mg oral tablet (10 sources) Aldosterone Antagonist Start: 04-12-2023 take 1 tablet by mouth in the morning spironolactone (Aldactone) 25 MG tablet Take 25 mg by mouth in the morning. 0 05/09/2023 Active ticagrelor 90 mg oral tablet (10 sources) Start: 04-12-2023 take 1 tablet by mouth in the morning Brilinta 90 MG tablet Take 1 tablet by mouth in the morning and 1 tablet before bedtime. 0 05/09/2023 Active tiZANidine 4 mg oral tablet (4 sources) Central alpha-2 Adrenergic Agonist Start: 07-08-2023 End: 07-23-2023 tiZANidine (Zanaflex) 4 MG tablet Indications: Lumbar back pain Take 1 tablet (4 mg) by mouth as needed at bedtime for muscle spasms for up to 15 days 15 tablet 0 07/08/2023 07/23/2023 Active Start: 06-17-2023 take 1 tablet by juan m th at bedtime as needed for muscle spasms tiZANidine (Zanaflex) 4 MG tablet Indications: Lumbar back pain Take 1 tablet (4 mg) by mouth as needed at bedtime for muscle spasms for up to 15 days At bedtime as needed for muscle spasms 15 tablet 0 06/17/2023 Active Completed/Discontinued Medications Medication Drug Class(es) Dates Sig (Normalized) Sig (Original) amoxicillin 875 mg / clavulanate 125 mg oral tablet (4 sources) Penicillin-class Antibacterial Start: 03-12-2022 take 1 tablet by mouth twice daily as needed Amoxicillin-Pot Clavulanate 875-125 MG amoxicillin-pot clavulanate 875-125mg, 1 (one) Tablet two times daily # 20, 03/12/2022, No Refill. Active Oral two times daily for 0 10 Mar, 2022 Not-Taking/PRN Problems Active Problems Problem Classification Problem Date Documented Da te Episodic/Chronic Acute myocardial infarction (6 sources) Myocardial infarction; Translations: [Non-ST elevation (NSTEMI) myocardial infarction] Onset: 04-10-2023 04-10-2023 Chronic Anxiety disorders (10 sources) Anxiety state; Translations: [Anxiety state, unspecified] Onset: 11-19-2018 05-09-2023 Chronic Congestive heart failure; nonhypertensive (10 sources) Systolic heart failure; Translations: [Unspecified systolic (congestive) heart failure] Onset: 05-09-2023 05-09-2023 Chronic Coronary atherosclerosis and other heart disease (17 sources) History of non-ST segment elevation myocardial infarction; Translations: [Old myocardial infarction] Onset: 05-09-2023 Chronic Coronary atherosclerosis and other heart disease (5 sources) Patient post percutaneous transluminal coronary angioplasty; Translations: [Coronary angioplasty status] Episodic Diabetes mellitus with complications (11 sources) Type 2 diabetes mellitus with hyperglycemia; Translations: [Hyperglycemia due to type 2 diabetes mellitus] Onset: 01-07-2022 05-09-2023 Chronic Diabetes mellitus without complication (8 sources) Type 2 diabetes mellitus; Translations: [Type 2 diabetes mellitus without complications] Onset: 08-16-2017 04-10-2023 Chronic Diseases of mouth; excluding dental (4 sources) Recurrent aphthous stomatitis; Translations: [Recurrent oral aphthae] Episodic Disorders of lipid metabolism (12 sources) Hyperlipidemia; Translations: [Hyperlipidemia, unspecified] Onset: 10-19-2015 04-10-2023 Chronic Essential hypertension (10 sources) Hypertensive disorder; Translations: [Essential (primary) hypertension] Onset: 04-10-2023 04-10-2023 Chronic Hemorrhoids (4 sources) Hemorrhoids; Translations: [Unspecified hemorrhoids] Episodic Menopausal disorders (2 sources) Menopausal symptom; Translations: [Menopausal and female climacteric states] Onset: 07-11-2023 07-11-2023 Chronic Menstrual disorders (8 sources) Dysmenorrhea; Translations: [Dysmenorrhea, unspecified] Onset: 04-29-2023 04-29-2023 Chronic Mycoses (4 sources) Candidiasis of vagina; Translations: [Yeast infection of the vagina] Onset: 04-29-2023 04-29-2023 Episodic Other circulatory disease (4 sources) Elevated [...] Episodic Other nutritional; endocrine; and metabolic disorders (8 sources) Body mass index 30+ - obesity; Translations: [Body mass index 36.0-36.9, adult] Onset: 08-16-2017 07-11-2023 Chronic Other nutritional; endocrine; and metabolic disorders [...] cyst, right side] Episodic Residual codes; unclassified (6 sources) Obstructive sleep apnea syndrome; Translations: [Obstructive sleep apnea (adult) (pediatric)] Onset: 05-08-2023 04-10-2023 Chronic Residual codes; unclassified (2 sources) Obstructive sleep apnea (adult) (pediatric); Translations: [Obstructive sleep apnea (adult)(pediatric)] Onset: 04-10-2023 04-12-2023 Chronic Residual codes; unclassified (4 sources) Harmful pattern of use of nicotine; Translations: [Tobacco use] Onset: 07-11-2023 04-10-2023 Episodic Residual codes; unclassified (4 sources) Tobacco user; Translations: [Tobacco use] Onset: 07-11-2023 07-11-2023 Episodic Spondylosis; intervertebral disc disorders; other back problems (4 sources) Low back pain; Translations: [Lumbar back pain] Onset: 06-06-2023 06-06-2023 Episodic Thyroid disorders (12 sources) Hypothyroidism, unspecified; Translations: [Hypothyroidism] Onset: 01-04-2022 [...] Eustachian salpingitis, left ear] Onset: 11-19-2018 Episodic Pneumonia (except that caused by tuberculosis or sexually transmitted disease) (4 sources) Pneumonia; Translations: [Pneumonia, unspecified organism] Onset: 05-01-2011 Resolved: 05-20-2023 05-20-2023 Episodic Residual codes; unclassified (2 sources) Tobacco use; Translations: [Tobacco use disorder] Onset: 04-10-2023 04-12-2023 Episodic Results Test Name Value Interpretation Reference Range Facility [facility] echo transthoracicon [facility] echo transthoracic [facility] [place] [address] Echocardiogram Signed Patient: Lorraine Mitchell MR#: [id number] 93 : 1975 Acct:[id number] Age/Sex: 47 / F ADM Date: 07/12/23 Loc: Room: [facility] Attending Dr: Stephanie Sweet MD Ordering Provider: Stephanie Sweet MD Date of Service: 07/12/2302/24/1326 [facility] transthoracic: History of non-ST elevation myocardial infarction (NSTEMI);I Copies to: MD Grace Reeder MD Weight: 190 lb Performed By: Aruna Espinoza RDCS BSA: 1.9 m2 BP: 131/87 mmHg HR: 68 Reason For Study: History of non-ST elevation myocardial infarction (NSTEMI);I History: DM, PIPPA, Obesity, Family History: Father - CAD, Stents, Brother - CAD, CABG at age 49 Interpretation Summary The left ventricular wall motion is normal. The left ventricular size and thickness are normal. A variety of Doppler measurements indicate impaired left ventricular relaxation, which is associated with grade I/IV or mild diastolic dysfunction. Ejection Fraction = 35-40%. The LV ejection fraction is moderately decreased . Compared to prior study, changes are noted. LV systolic function has improved. Procedure/Quality: A two-dimensional transthoracic echocardiogram with color flow, Doppler and injection of contrast agent Definity was performed. A two- dimensional transthoracic echocardiogram with color flow and Doppler was performed. The study was technically good in quality. Left Ventricle: The left ventricular size and thickness are normal. Ejection Fraction = 35-40%. The LV ejection fraction is moderately decreased . A variety of Doppler measurements indicate impaired left ventricular relaxation, which is associated with grade I/IV or mild diastolic dysfunction. The left ventricular wall motion is normal. Left Atrium: The left atrium appears normal in size. Right Atrium: The right atrium appears normal in size. Right Ventricle: The right ventricular size, thickness and function are normal. Aortic Valve: The aortic valve is normal in structure and function. No aortic regurgitation is present. Mitral Valve: The mitral valve is normal in structure and function. There is no mitral regurgitation noted. Tricuspid Valve: The tricuspid valve is normal in structure and function. No tricuspid regurgitation. Pulmonic Valve: The pulmonic valve is normal in structure and function. Arteries: The aortic root is normal size. Pericardium/Pleura: No pericardial effusion seen. There is no pleural effusion. IVC/Hepatic Veins: The inferior vena cava is normal in size, with a normal collapsibility index. Measurements with Normals IVSd: 1.1 cm (0.7-1.1 cm)LVIDd: 5.3 cm (3.7-5.4 cm) LVPWd: 1.0 cm (0.7-1.1 cm)LVIDs: 4.3 cm (2.3-3.6 cm) LA dimension: 3.1 cm (2.3-4.0 cm)Ao root diam: 3.4 cm(2.0-3.6 cm) asc Aorta Diam: 3.4 cm(2.1-3.4cm) Doppler with Normals LV V1 max: 93.0 cm/sec (0.7-1.7m/s)MV E max george: 75.8 cm/sec(0.8-1.3m/s) MV A max george: 87.8 cm/sec(0.0-0.0m/s) MV E/A: 0.86 (<1.5) MMode/2D Measurements Calculations RVDd: 3.3 cm FS: 18.2 % Ao root area: LVOT diam: 2.2 cm TAPSE: 1.8 cm EDV(Teich): 9.3 cm2 LVOT area: 3.8 cm2 RV S George: 134.6 ml 10.5 cm/sec ESV(Teich): 84.3 ml EF(Teich): 37.4 % __ LVLd ap4: 9.5 cm SV(MOD-sp4): LAV(MOD-sp4): LA A2 area: 13.9 cm2 EDV(MOD-sp4): 65.5 ml 22.3 ml 153.0 ml LAV(MOD-sp2): LA A4 area: 11.9 cm2 LVLs ap4: 8.6 cm 28.6 ml LA length (vol): ESV(MOD-sp4): 5.1 cm 87.5 ml LA vol: 27.4 ml EF(MOD-sp4): 42.8 % LA vol index: 14.1 ml/m2 Doppler Measurements Calculations MV dec time: E/E' lat: 10.2 MV dec slope: Ao V2 max: 0.20 sec E/E' med: 13.2 123.4 cm/sec 388.1 cm/sec2 Ao max P.1 mmHg Ao mean P.5 mmHg Ao V2 mean: 89.5 cm/sec Ao V2 VTI: 22.9 cm TODD(I,D): 2.6 cm2 TODD(V,D): 2.8 cm2 __ LV V1 max PG: RAP systole: 3.5 mmHg 3.0 mmHg LV V1 mean P.0 mmHg LV V1 mean: 66.2 cm/sec LV V1 VTI: 16.1 cm Measurements from QLAB BSA (): 1.9 m2 CI (): ED Mass (HM): LAEF (): 73.0 % 2.9 l/min/m2 189.0 grams __ CHARAN (): LAVmax (): LAVmin (): 31.0 mlPat Height (): 113.0 ml 165.0 cm 59.0 ml/m2 __ Pat Weight (HM): 86.2 kg QLAB Heart Model EDV (HM)_phl: 187.0 ml EF (HM)_phl: 42.0 % ED Current (HM)_phl: 60.0 % ESV (HM)_phl: 108.0 ml HR (HM)_phl: 70.0 BPMES Current (HM)_phl: 30.0 % LV Length ED (HM)_phl: 92.0 mmSV (HM)_phl: 79.0 ml ED Default (HM)_phl: 60.0 % LV Length ES (HM)_phl: 80.0 mm ES Default (HM)_phl: 30.0 % Transcribed By: SCV Performed At: 07/12/23 1334 Signed By: Grace Solorio MD 07/12/23 [facility] ALL LIPID PROFILE (FASTING)o n 07-06-2023 CHOL HDL RATIO 3.8 [facility] Comment on above: 3.3 - 4.4 LOW RISK 4.4 - 7.1 AVERAGE RISK 7.1 - 11.0 MODERATE RISK >11.0 HIGH RISK Cholesterol [Mass/Vol] 124 mg/dL NINF - 200 mg/dL [facility] Cholesterol in HDL [Mass/Vol] 33 mg/dL Low 40 - 60 mg/dL [facility] Comment on above: > or =60 mg/dl - LOW CARDIOVASCULAR RISK <40 mg/dl - HIGH CARDIOVASCULAR RISK Magnesium [Mass/Vol] 37.0 mg/dL [facility] Comment on above: <100 mg/dl OPTIMAL 100-129 mg/dl NEAR OR ABOVE OPTIMAL 130-159 mg/dl BORDERLINE HIGH 160-189 mg/dl HIGH >190 mg/dl VERY HIGH Magnesium [Mass/Vol] 54.2 mg/dL [facility] Triglyceride [Mass/Vol] 271 mg/dL High NINF - 150 mg/dL [facility] 07-06-2023 ALT [Catalytic activity/Vol] 37 U/L 14 - 59 U/L [facility] 07-06-2023 AST [Catalytic activity/Vol] 13 U/L Low 15 - 37 U/L [facility] No Panel Informationon 07-06 Interpretation and review of laboratory results Abnormal [facility] ECG 12 lead ECGon 04-12-2023 ECG 12 lead ECG [place] [address] Electrocardiograph Report Signed Patient: Lorraine Mitchell MR#: [id number] 93 : 1975 Acct:[id number] Age/Sex: 47 / F ADM Date: 04/10/23 Loc: Room: [address] [place] [address] Type: DIS IN Attending Dr: Florentino Kenyon MD Ordering Provider: Magali Cortez DO Date of Service: 04/12/2303/25/500 ECG/ECG 12 [...] By: MUS Signed By Darryl Kee MD [address] [facility] Glucose Glucometer (BldC) [M ass/Vol]Ordered By: Florentino Kenyon on 04-12-2023 Glucose [Mass/Vol] 226 mg/dL [facility] Comment on above: Random Glucose Refer ence Range is dependent on time and content of last meal. Glucose of more than 200 mg/dL in a nonstressed, ambulatory subject supports the diagnosis of Diabetes Mellitus. Glucose Poct Glucometerson 1 06-12-2022 Glucose [Mass/Vol] 226 mg/dL Normal [facility] Comment on above: Result Comment: [place] [facility] Glucose Reference Range is dependent on time and content of last meal. Glucose of more than 200 mg/dL in a nonstressed, ambulatory subject supports the diagnosis of Diabetes Mellitus. PERFORMED BY: [place] [address] PATHOLOGIST [employer]ALENT ACQUISITION SOURCER ELPIDIO DUMONT M.D. Performed By: #### G LULS #### Point of Care testing , Glucose [Mass/Vol] 219 mg/dL Normal [facility] Comment on above: Result Comment: [facility] Glucose Reference Range is dependent on time and content of last meal. Glucose of more than 200 mg/dL in a nonstressed, ambulatory subject supports the diagnosis of Diabetes Mellitus. PERFORMED BY: [place] [id number] PATHOLOGIST TALENT ACQUISITION SOURCER ELPIDIO DUMONT M.D. Performed By: #### H S TROP, CK #### [facility] [address] [place], [place] [id number] [facility] Troponin I High Sensitivityo n 04-12-2023 Troponin I High Sensitivity 3417.1 pg/mL Off scale high 0.0-15.0 [facility] Comment on above: Result Comment: Crit ical Result : Called to and read back by: CLAYTON MCCLOUD at: 04/12/2023 06:08:29 by:[id number] PERFORMED BY: [place] [id number] PATHOLOGIST TALENT ACQUISITION SOURCER ELPIDIO DUMONT M.D. Performed By: #### H S TROP, CK #### [facility] [address] [place], [place] [id number] [facility] Troponin I.cardiac [Mass/vol ume] in Serum or Plasma by Detection limit <= 0.01 ng/Ordered By: Magali Cortez on 04-12-2023 Troponin I.cardiac DL <= 0.01 ng/mL [Mass/Vol] 3417.1 pg/mL 0.0-15.0 [facility] Comment on above: Critical Result : Ca lled to and read back by: CLAYTON MCCLOUD at: 04/12/2023 06:08:29 by:[id number] Activated partial thrombopla stin time (aPTT) in platelet poor plasma by coagulation aOrdered By: Stephanie Sweet on 04-11-2023 aPTT Coag (PPP) [Time] 29.3 s 25.1-36.5 [facility] Comment on above: A hematocrit value g reater than 55% may lead to inaccurate results in coagulation testing. Patients having hematocrit values >55% require a special collection tube for coagulation studies. Please contact the laboratory at [phone] for redraw instructions. Basophils Auto (Bld) [#/Vol] Ordered By: Stephanie Sweet on 04-11-2023 Basophils (Bld) [#/Vol] 0.0 10*3/uL 0.0-0.2 [facility] Basophils/100 WBC Auto (Bld) Ordered By: Stephanie Sweet on 04-11-2023 Basophils/100 WBC (Bld) 0.5 % . [facility] Blood Urea Nitrogenon 2022 Urea nitrogen [Mass/Vol] 11 mg/dL Normal 7-25 [facility] Comment on above: Performed By: #### C REAT, BUN, CBC, LYTES #### [address] Carbon dioxide, total [Moles /volume] in Serum or PlasmaOrdered By: Stephanie Sweet on 04-11-2023 CO2 [Moles/Vol] 26.7 mmol/L 21.0-31.0 [facility] Chloride [Moles/volume] in S ambika or PlasmaOrdered By: Stephanie Sweet on 04-11-2023 Chloride [Moles/Vol] 101 mmol/L 98-107 [facility] Coagulation Profileon 2022 aPTT Coag (Bld) [Time] 29.3 s Normal 25.1-36.5 [facility] Comment on above: Result Comment: A he matocrit value greater than 55% may lead to inaccurate results in coagulation testing. Patients having hematocrit values >55% require a special collection tube for coagulation studies. Please contact the laboratory at [phone] for redraw instructions. PERFORMED BY: [place] [address] PATHOLOGIST [employer]ALENT ACQUISITION SOURCER ELPIDIO DUMONT M.D. Performed By: #### H S TROP, CK #### [address] INR Coag (PPP) [Relative time] 1.0 {INR} Normal [facility] Comment on above: Result Comment: INR [...] valves: 3 - 4.5 Performed By: #### H S TROP, CK #### [address] PT Coag (PPP) [Time] 12.0 s Normal 9.0-12.9 [facility] Comment on above: Result Comment: A he matocrit value greater than 55% may lead to inaccurate results in coagulation testing. Patients having hematocrit values >55% require a special collection tube for coagulation studies. Please contact the laboratory at [phone] for redraw instructions. Performed By: #### H S TROP, CK #### [place] [id number] [facility] Complete Blood Count Auto Di ffon 04-11-2023 Basophils (Bld) [#/Vol] 0.0 10*3/uL Normal 0.0-0.2 [facility] Comment on above: Result Comment: PERF ORMED BY: [place] [id number] PATHOLOGIST [employer] SOURCER ELPIDIO DUMONT M.D. Performed By: #### C REAT, BUN, CBC, LYTES #### [address] Basophils/100 WBC (Bld) 0.5 % Normal . [facility] Comment on above: Performed By: #### C REAT, BUN, CBC, LYTES #### [address] Eosinophils (Bld) [#/Vol] 0.1 10*3/uL Normal 0.0-0.45 [facility] Comment on above: Performed By: #### C REAT, BUN, CBC, LYTES #### [address] Eosinophils/100 WBC (Bld) 0.9 % Normal . [facility] Comment on above: Performed By: #### C REAT, BUN, CBC, LYTES #### [address] Erythrocyte distribution width (RBC) [Ratio] 14.5 % Normal 11.9-15.3 [facility] Comment on above: Performed By: #### C REAT, BUN, CBC, LYTES #### [address] Hematocrit (Bld) [Volume fraction] 35.1 % Normal 34.0-46.4 [facility] Comment on above: Performed By: #### C REAT, BUN, CBC, LYTES #### [address] Hemoglobin (Bld) [Mass/Vol] 11.8 g/dL Normal 11.8-15.4 [facility] Comment on above: Performed By: #### C REAT, BUN, CBC, LYTES #### [place] [address] [place] Lymphocytes (Bld) [#/Vol] 3.0 10*3/uL Normal 1.00-4.8 [facility] Comment on above: Performed By: #### C REAT, BUN, CBC, LYTES #### [address] Lymphocytes/100 WBC (Bld) 33.4 % Normal . [facility] Comment on above: Performed By: #### C REAT, BUN, CBC, LYTES #### [address] MCH (RBC) [Entitic mass] 30.7 pg Normal 24.7-34.3 [facility] Comment on above: Performed By: #### C REAT, BUN, CBC, LYTES #### [address] MCV (RBC) [Entitic vol] 91.1 fL Normal 80-100 [facility] Comment on above: Performed By: #### C REAT, BUN, CBC, LYTES #### [address] Mean Corpuscular HGB Conc 33.7 g/dL Normal 32.0-35.0 [facility] Comment on above: Performed By: #### C REAT, BUN, CBC, LYTES #### [address] Monocytes (Bld) [#/Vol] 0.5 10*3/uL Normal 0.0-0.8 [facility] Comment on above: Performed By: #### C REAT, BUN, CBC, LYTES #### [address] Monocytes/100 WBC (Bld) 5.8 % Normal . [facility] Comment on above: Performed By: #### C REAT, BUN, CBC, LYTES #### [address] Neutrophils (Bld) [#/Vol] 5.3 10*3/uL Normal 1.8-7.7 [facility] Comment on above: Performed By: #### C REAT, BUN, CBC, LYTES #### [address] Neutrophils/100 WBC (Bld) 59.4 % Normal . [facility] Comment on above: Performed By: #### C REAT, BUN, CBC, LYTES #### [address] NRBC% 0.1 /100{WBC} Normal 0-0.5 [facility] Comment on above: Performed By: #### C REAT, BUN, CBC, LYTES #### [address] Platelet mean volume (Bld) [Entitic vol] 9.4 fL Normal 6.3-10.7 [facility] Comment on above: Performed By: #### C REAT, BUN, CBC, LYTES #### [address] Platelets (Bld) [#/Vol] 213 10*3/uL Normal 150-450 [facility] Comment on above: Performed By: #### C REAT, BUN, CBC, LYTES #### [address] RBC (Bld) [#/Vol] 3.85 10*6/uL Normal 3.60-5.[address] [facility] Comment on above: Performed By: #### C REAT, BUN, CBC, LYTES #### [address] WBC (Bld) [#/Vol] 9.0 10*3/uL Normal 3.8-11.6 [facility] Comment on above: Performed By: #### C REAT, BUN, CBC, LYTES #### [address] Creatine Kinaseon 04-11-2023 CK [Catalytic activity/Vol] 186 U/L Normal 30-223 [facility] Comment on above: Performed By: #### H S TROP, CK #### [address] CK [Catalytic activity/Vol] 242 U/L High 30-223 [facility] Comment on above: Performed By: #### H S TROP, CK #### [address] Creatine kinase [Enzymatic a ctivity/volume] in Serum or PlasmaOrdered By: Florentino Kenyon on 04-11-2023 CK [Catalytic activity/Vol] 186 U/L 30-223 [facility] Creatinineon 04-11-2023 Creatinine [Mass/Vol] 0.47 mg/dL Low 0.60-1.20 [facility] Comment on above: Performed By: #### H S TROP, CK #### [facility] [address] [place] [address] [place] Creatinine Clr Calc Pharmacy 166.11 [facility] Comment on above: Result Comment: PERF ORMED BY: [place] [address] PATHOLOGIST [employer]ENT [employer] S[employer]ER ELPIDIO DUMONT M.D. Performed By: #### H S TROP, CK #### [facility] [address] [place] [address] [place] GFR/1.73 sq M.predicted MDRD (S/P/Bld) [Vol rate/Area] mL/min/{1.73_m2} [facility] Comment on above: Performed By: #### H S TROP, CK #### [facility] [address] [place] [address] [place] Creatinine [Mass/volume] in Serum or PlasmaOrdered By: Stephanie Sweet on 04-11-2023 Creatinine [Mass/Vol] 0.47 mg/dL 0.60-1.20 [facility] ECG 12 lead ECGon 04-11-2023 ECG 12 lead ECG [facility] [place] [address] [place] [address] Electrocardiograph Report Signed Patient: Lorraine Mitchell MR#: [id number] 93 : 1975 Acct:[id number] Age/Sex: 47 / F ADM Date: 04/10/23 Loc: Room: [address] [place] [address] Type: DIS IN Attending Dr: Florentino Kenyon [...] Electronically Signed By:DARRYL KEE MD Transcribed By: MARIE Signed By Darryl Kee MD [address] [facility] Electrolyteson 04-11-2023 Anion gap [Moles/Vol] 12.1 mmol/L Normal 6.0-15.0 [facility] Comment on above: Performed By: #### C REAT, BUN, CBC, LYTES #### [facility] [address] Chloride [Moles/Vol] 101 mmol/L Normal 98-107 [facility] Comment on above: Performed By: #### C REAT, BUN, CBC, LYTES #### [facility] [address] CO2 [Moles/Vol] 26.7 mmol/L Normal 21.0-31.0 [facility] Comment on above: Performed By: #### C REAT, BUN, CBC, LYTES #### [facility] [address] Potassium [Moles/Vol] 3.8 mmol/L Normal 3.5-5.1 [facility] Comment on above: Performed By: #### C REAT, BUN, CBC, LYTES #### [facility] [address] [place] [address] [place] Sodium [Moles/Vol] 136 mmol/L Normal 136-145 [facility] Comment on above: Performed By: #### C REAT, BUN, CBC, LYTES #### [facility] [address] [place] [address] [place] Eosinophils Auto (Bld) [#/Vo l]Ordered By: Stephanie Sweet on 04-11-2023 Eosinophils (Bld) [#/Vol] 0.1 10*3/uL 0.0-0.45 [facility] Eosinophils/100 WBC Auto (Bl d)Ordered By: Stephanie Sweet on 04-11-2023 Eosinophils/100 WBC (Bld) 0.9 % . [facility] Erythrocyte distribution wid th Auto (RBC) [Ratio]Ordered By: Stephanie Sweet on 04-11-2023 Erythrocyte distribution width (RBC) [Ratio] 14.5 % 11.9-15.3 [facility] Glucose Poct Glucometerson 1 06-11-2022 Glucose [Mass/Vol] 200 mg/dL Normal [facility] Comment on above: Result Comment: [facility] Glucose Reference Range is dependent on time and content of last meal. Glucose of more than 200 mg/dL in a nonstressed, ambulatory subject supports the diagnosis of Diabetes Mellitus. PERFORMED BY: [address] [place] [address] PATHOLOGIST [employer] S[employer]ER ELPIDIO DUMONT M.D. Performed By: #### G LULS #### Point of Care testing , Commemt1 Glu2: Cleaned Meter Normal [facility] Comment on above: Result Comment: PERF ORMED BY: [address] [place] [address] PATHOLOGIST [employer]ENT AC[employer] S[employer]ER ELPIDIO DUMONT M.D. Performed By: #### G LULS #### Point of Care testing , Glucose [Mass/Vol] 221 mg/dL Normal [facility] Comment on above: Result Comment: [place] Glucose Reference Range is dependent on time and content of last meal. Glucose of more than 200 mg/dL in a nonstressed, ambulatory subject supports the diagnosis of Diabetes Mellitus. Performed By: #### G LULS #### Point of Care testing , Glucose [Mass/Vol] 204 mg/dL Normal [facility] Comment on above: Result Comment: [place] Glucose Reference Range is dependent on time and content of last meal. Glucose of more than 200 mg/dL in a nonstressed, ambulatory subject supports the diagnosis of Diabetes Mellitus. PERFORMED BY: [facility] [place] [address] PATHOLOGIST [employer] S[employer]ER ELPIDIO DUMONT M.D. Performed By: #### G EMILIA #### Point of Care testing , Hematocrit Auto (Bld) [Volum e fraction]Ordered By: Stephanie Sweet on 04-11-2023 Hematocrit (Bld) [Volume fraction] 35.1 % 34.0-46.4 [facility] Hemoglobin [Mass/volume] in BloodOrdered By: Stephanie Sweet on 04-11-2023 Hemoglobin (Bld) [Mass/Vol] 11.8 g/dL 11.8-15.4 [facility] INR in Platelet poor plasma by Coagulation assayOrdered By: Stephanie Sweet on 04-11-2023 INR Coag (PPP) [Relative time] 1.0 {INR} [facility] Comment on above: INR Therapeutic Rang [...] RBC Auto (Bld) [#/Vol] 9.0 10*3/uL 3.8-11.6 [facility] Lymphocytes Auto (Bld) [#/Vo l]Ordered By: Stephanie Sweet on 04-11-2023 Lymphocytes (Bld) [#/Vol] 3.0 10*3/uL 1.00-4.8 [facility] Lymphocytes/100 WBC Auto (Bl d)Ordered By: Stephanie Sweet on 04-11-2023 Lymphocytes/100 WBC (Bld) 33.4 % . [facility] MCH Auto (RBC) [Entitic mass ]Ordered By: Stephanie Sweet on 04-11-2023 MCH (RBC) [Entitic mass] 30.7 pg 24.7-34.3 [facility] MCHC Auto (RBC) [Mass/Vol]Or dered By: Stephanie Sweet on 04-11-2023 MCHC (RBC) [Mass/Vol] 33.7 g/dL 32.0-35.0 [facility] MCV Auto (RBC) [Entitic vol] Ordered By: Stephanie Sweet on 04-11-2023 MCV (RBC) [Entitic vol] 91.1 fL 80-100 [facility] Monocytes Auto (Bld) [#/Vol] Ordered By: Stephanie Sweet on 04-11-2023 Monocytes (Bld) [#/Vol] 0.5 10*3/uL 0.0-0.8 [facility] Monocytes/100 WBC Auto (Bld) Ordered By: Stephanie Sweet on 04-11-2023 Monocytes/100 WBC (Bld) 5.8 % . [facility] Neutrophils Auto (Bld) [#/Vo l]Ordered By: Stephanie Sweet on 04-11-2023 Neutrophils (Bld) [#/Vol] 5.3 10*3/uL 1.8-7.7 [facility] Neutrophils/100 WBC Auto (Bl d)Ordered By: Stephanie Sweet on 04-11-2023 Neutrophils/100 WBC (Bld) 59.4 % . [facility] No Panel InformationOrdered By: Florentino Kenyon on 04-11-2023 Bedside Glucose Comment Glu2: cleaned meter [facility] No Panel InformationOrdered By: Stephanie Sweet on 04-11-2023 Estimated GFR (CKD-EPI) > 60.0 mL/Min [facility] Creatinine Clearance (Chem 166.11 [facility] Nucleated erythrocytes [Pres ence] in Blood by Automated countOrdered By: Stephanie Sweet on 04-11-2023 Nucleated RBC Auto Ql (Bld) 0.1 /100{WBC} 0-0.5 [facility] Partial Thromboplastin Timeo n 04-11-2023 aPTT Coag (Bld) [Time] 29.2 s Normal 25.1-36.5 [facility] Comment on above: Result Comment: A he matocrit value greater than 55% may lead to inaccurate results in coagulation testing. Patients having hematocrit values >55% require a special collection tube for coagulation studies. Please contact the laboratory at [phone] for redraw instructions. PERFORMED BY: [facility] [address] [place] [address] PATHOLOGIST [employer]ENT [employer] S[employer]ER ELPIDIO DUMONT M.D. Performed By: #### H S TROP, CK #### [address] Platelet mean volume Auto (B ld) [Entitic vol]Ordered By: Stephanie Sweet on 04-11-2023 Platelet mean volume (Bld) [Entitic vol] 9.4 fL 6.3-10.7 [facility] Platelets Auto (Bld) [#/Vol] Ordered By: Stephanie Sweet on 04-11-2023 Platelets (Bld) [#/Vol] 213 10*3/uL 150-450 [facility] Potassium [Moles/volume] in Serum or PlasmaOrdered By: Stephanie Sweet on 04-11-2023 Potassium [Moles/Vol] 3.8 mmol/L 3.5-5.1 [facility] Prothrombin time (PT)Ordered By: Stephanie Sweet on 04-11-2023 PT Coag (PPP) [Time] 12.0 s 9.0-12.9 [facility] Comment on above: A hematocrit value g reater than 55% may lead to inaccurate results in coagulation testing. Patients having hematocrit values >55% require a special collection tube for coagulation studies. Please contact the laboratory at [phone] for redraw instructions. RBC Auto (Bld) [#/Vol]Ordere d By: Stephanie Sweet on 04-11-2023 RBC (Bld) [#/Vol] 3.85 10*6/uL 3.60-5.[address] [facility] Serum or plasma anion gap de terminationOrdered By: Stephanie Sweet on 04-11-2023 Anion gap [Moles/Vol] 12.1 mmol/L 6.0-15.0 [facility] Sodium [Moles/volume] in Ser um or PlasmaOrdered By: Stephanie Sweet on 04-11-2023 Sodium [Moles/Vol] 136 mmol/L 136-145 [facility] Troponin I High Sensitivityo n 04-11-2023 Troponin I High Sensitivity 2287.4 pg/mL Off scale high 0.0-15.0 [facility] Comment on above: Result Comment: Crit ical Result : Called to and read back by: LILLY GRAY at: 04/11/2023 12:03:27 by:MLG PERFORMED BY: [place] [phone] PATHOLOGIST [employer]ENT ACQUISITION SOURCER ELPIDIO DUMONT M.D. Performed By: #### H S TROP, CK #### [address] Troponin I High Sensitivity 2115.2 pg/mL Off scale high 0.0-15.0 [facility] Comment on above: Result Comment: Crit ical Result : Called to and read back by: CLAYTON REDMAN at: 04/11/2023 00:13:42 by:AUGUSTO PERFORMED BY: [place] [phone] PATHOLOGIST TALENT ACQUISITION SOURCER ELPIDIO DUMONT M.D. Performed By: #### H S TROP, CK #### [address] Urea nitrogen [Mass/volume] in Serum or PlasmaOrdered By: Stephanie Sweet on 04-11-2023 Urea nitrogen [Mass/Vol] 11 mg/dL 7-25 [facility] WBC Auto (Bld) [#/Vol]Ordere d By: Stephanie Sweet on 04-11-2023 WBC (Bld) [#/Vol] 9.0 10*3/uL 3.8-11.6 [facility] Complete Blood Count Auto Di ffon 04-10-2023 Basophils (Bld) [#/Vol] 0.1 10*3/uL Normal 0.0-0.2 [facility] Comment on above: Result Comment: PERF ORMED BY: [place] [address] PATHOLOGIST TALENT ACQUISITION SOURCER ELPIDIO UDMONT M.D. Performed By: #### H Sushma TROP, CK #### [address] Basophils/100 WBC (Bld) 1.4 % Normal . [facility] Comment on above: Performed By: #### H Sushma TROP, CK #### [address] Eosinophils (Bld) [#/Vol] 0.1 10*3/uL Normal 0.0-0.45 [facility] Comment on above: Performed By: #### Wil Ordaz TROP, CK #### [address] Eosinophils/100 WBC (Bld) 1.2 % Normal . [facility] Comment on above: Performed By: #### Wil LICEA, CK #### [address] Erythrocyte distribution width (RBC) [Ratio] 14.1 % Normal 11.9-15.3 [facility] Comment on above: Performed By: #### Wil LIECA CK #### [address] Hematocrit (Bld) [Volume fraction] 36.0 % Normal 34.0-46.4 [facility] Comment on above: Performed By: #### H Sushma TROP, CK #### [address] Hemoglobin (Bld) [Mass/Vol] 12.2 g/dL Normal 11.8-15.4 [facility] Comment on above: Performed By: #### Wil S TROP, CK #### [address] Lymphocytes (Bld) [#/Vol] 3.2 10*3/uL Normal 1.00-4.8 [facility] Comment on above: Performed By: #### Wil LICEA, CK #### [address] Lymphocytes/100 WBC (Bld) 36.2 % Normal . [facility] Comment on above: Performed By: #### H Sushma TROP CK #### [facility] [address] MCH (RBC) [Entitic mass] 30.7 pg Normal 24.7-34.3 [facility] Comment on above: Performed By: #### H S TROP, CK #### [address] MCV (RBC) [Entitic vol] 90.9 fL Normal 80-100 [facility] Comment on above: Performed By: #### H Sushma TROP CK #### [address] Mean Corpuscular HGB Conc 33.8 g/dL Normal 32.0-35.0 [facility] Comment on above: Performed By: #### Wil Ordaz TROP CK #### [address] Monocytes (Bld) [#/Vol] 0.4 10*3/uL Normal 0.0-0.8 [facility] Comment on above: Performed By: #### Wil Ordaz TROP CK #### [address] Monocytes/100 WBC (Bld) 4.6 % Normal . [facility] Comment on above: Performed By: #### H S TROP CK #### [address] Neutrophils (Bld) [#/Vol] 5.0 10*3/uL Normal 1.8-7.7 [facility] Comment on above: Performed By: #### H S TROP CK #### [address] Neutrophils/100 WBC (Bld) 56.6 % Normal . [facility] Comment on above: Performed By: #### H S TROP CK #### [address] NRBC% 0.1 /100{WBC} Normal 0-0.5 [facility] Comment on above: Performed By: #### Wil LICEA CK #### [address] Platelet mean volume (Bld) [Entitic vol] 9.3 fL Normal 6.3-10.7 [facility] Comment on above: Performed By: #### H S TROP CK #### [address] Platelets (Bld) [#/Vol] 213 10*3/uL Normal 150-450 [facility] Comment on above: Performed By: #### Wil LICEA CK #### [address] RBC (Bld) [#/Vol] 3.96 10*6/uL Normal 3.60-5.[address] [facility] Comment on above: Performed By: #### H Sushma TROP CK #### [address] WBC (Bld) [#/Vol] 8.9 10*3/uL Normal 3.8-11.6 [facility] Comment on above: Performed By: #### Wil LICEA CK #### [address] Creatine Kinaseon 04-10-2023 CK [Catalytic activity/Vol] 268 U/L High 30-223 [facility] Comment on above: Performed By: #### G EMILIA #### Point of Care testing , CK [Catalytic activity/Vol] 238 U/L High 30-223 [facility] Comment on above: Performed By: #### H S TROP CK #### [address] CK [Catalytic activity/Vol] 210 U/L Normal 30-223 [facility] Comment on above: Performed By: #### H S VINAYAK CK #### [address] ECG 12 lead ECGon 04-10-2023 ECG 12 lead ECG [facility] Main [address] [address] Electrocardiograph Report Signed Patient: Lorraine Mitchell MR#: [id number] 93 : 1975 Acct:[id number] Age/Sex: 47 / F ADM Date: 04/10/23 Loc: 4 Room: [address] [place] [address] Type: ADM IN Attending Dr: Florentino Kenyon [...] has lengthened Confirmed by DARRYL KEE MD ([facility]) on 04/11/2023 3:52:37 PM Referred By: [facility] Electronically Signed By:DARRYL KEE MD Transcribed By: [facility] Signed By Darryl Kee MD 15[address] [facility] ECH echo transthoracicon [facility] echo transthoracic [facility] Main [address] [address] Echocardiogram Signed Patient: Lorraine Mitchell MR#: [id number] 93 : 1975 Acct:[id number] Age/Sex: 47 / F ADM Date: 04/10/23 Loc: 4 Room: [address] [place] [address] Type: ADM IN Attending Dr: Florentino Kenyon MD Ordering Provider: Florentino Kenyon MD Date of Service: 04/10/2301/23/1057 ECH/ECH echo transthoracic: NSTMI Copies to: MD Grace SkinnerMD Height: 65 in Weight: 196 lb Performed [...] __ RAP systole: 5.0 mmHg Transcribed By: SANDI Performed At: 04/10/23 1204 Signed By: Grace Solorio MD 04/10/23 1309 Normal [facility] Glucose Poct Glucometerson 1 06-10-2022 Glucose [Mass/Vol] 201 mg/dL Normal [facility] Comment on above: Result Comment: [facility] Glucose Reference Range is dependent on time and content of last meal. Glucose of more than 200 mg/dL in a nonstressed, ambulatory subject supports the diagnosis of Diabetes Mellitus. PERFORMED BY: [place] [address] PATHOLOGIST TALENT ACQUISITION SOURCER ELPIDIO DUMONT M.D. Performed By: #### G LULS #### Point of Care testing , Glucose [Mass/Vol] 214 mg/dL Normal [facility] Comment on above: Result Comment: [facility] Glucose Reference Range is dependent on time and content of last meal. Glucose of more than 200 mg/dL in a nonstressed, ambulatory subject supports the diagnosis of Diabetes Mellitus. PERFORMED BY: [place] [address] PATHOLOGIST TALENT ACQUISITION SOURCER ELPIDIO DUMONT M.D. Performed By: #### H S TROP, CK #### [facility] [address] [place] [address] Glucose [Mass/Vol] 196 mg/dL Normal [facility] Comment on above: Result Comment: [facility] Glucose Reference Range is dependent on time and content of last meal. Glucose of more than 200 mg/dL in a nonstressed, ambulatory subject supports the diagnosis of Diabetes Mellitus. PERFORMED BY: [place] [address] PATHOLOGIST TALENT ACQUISITION SOURCER ELPIDIO DUMONT M.D. Performed By: #### H S TROP, CK #### [facility] [address] [place] [address] [place] Partial Thromboplastin Timeo n 04-10-2023 aPTT Coag (Bld) [Time] 26.1 s Normal 25.1-36.5 [facility] Comment on above: Result Comment: A he matocrit value greater than 55% may lead to inaccurate results in coagulation testing. Patients having hematocrit values >55% require a special collection tube for coagulation studies. Please contact the laboratory at [phone] for redraw instructions. PERFORMED BY: [facility] [address] [place] [address] PATHOLOGIST TALENT ACQUISITION SOURCER ELPIDIO DUMONT M.D. Performed By: #### G LULS #### Point of Care testing , Prothrombin Time INRon 04-10 INR Coag (PPP) [Relative time] 1.0 {INR} Normal [facility] Comment on above: Result Comment: INR [...] Care testing , PT Coag (PPP) [Time] 12.1 s Normal 9.0-12.9 [facility] Comment on above: Result Comment: A he matocrit value greater than 55% may lead to inaccurate results in coagulation testing. Patients having hematocrit values >55% require a special collection tube for coagulation studies. Please contact the laboratory at [phone] for redraw instructions. Performed By: #### G LULS #### Point of Care testing , Troponin I High Sensitivityo n 04-10-2023 Troponin I High Sensitivity 1613.1 pg/mL Off scale high 0.0-15.0 [facility] Comment on above: Result Comment: Crit ical Result : Called to and read back by: TRE NASH at: 04/10/2023 18:42:30 by:FUAD PERFORMED BY: [facility] [address] [place] [address] PATHOLOGIST TALENT ACQUISITION SOURCER ELPIDIO DUMONT M.D. Performed By: #### G LULS #### Point of Care testing , Troponin I High Sensitivity 1083.2 pg/mL Off scale high 0.0-15.0 [facility] Comment on above: Result Comment: Crit ical Result : Called to and read back by: TRE NASH at: 04/10/2023 16:30:31 by:FUAD PERFORMED BY: [place] [address] PATHOLOGIST TALENT ACQUISITION SOURCER ELPIDIO DUMONT M.D. Performed By: #### H S TROP, CK #### [address] Troponin I High Sensitivity 899.4 pg/mL Off scale high 0.0-15.0 [facility] Comment on above: Result Comment: PERF ORMED BY: [place] [address] PATHOLOGIST TALENT ACQUISITION SOURCER ELPIDIO DUMONT M.D. Performed By: #### H S TROP, CK #### [address] XR chest 2V*on 04-10-2023 XR chest 2V* [facility] [place] [address] [place] [address] XRay Report Signed Patient: Lorraine Mitchell MR#: [id number] 93 : 1975 Acct:[id number] Age/Sex: 47 / F ADM Date: 04/10/23 Loc: Room: [address] [place] [address] Type: ADM IN Attending Dr: Florentino Kenyon MD Copies to: MD Stephanie Skinnre MD Ordering Provider: Stephanie Sweet MD Date [...] Ralf Kelly M.D.04/10/2023 3:17 PM Dictation Location: [place] [address] Transcribed By: [facility] 04/10/231516 Dictated By: Ralf Kelly II, MD 04/10/231514 Signed By: 04/10/231516 Normal [facility] FREE T4on 01-04-2022 Free T4 [Mass/Vol] 0.91 ng/dL Normal 0.76-1.46 [facility] Comment on above: Performed By: #### F T4 #### [facility] [address] [place] [address] Dr. Jane Alexis LAB TESTINGon 01-04-2022 RECV HEADER SEE SCANNED REPORT IN HPF [facility] Comment on above: Performed By: #### M ISC #### [facility] [address] [place] [address] Dr. Jane Alexis REV FROM REF LAB 01/05/22 [facility] Comment on above: Performed By: #### M ISC #### [facility] [address] [place] [address] Dr. Jane Alexis SENT TO REF LAB 01/04/22 [facility] Comment on above: Performed By: #### M ISC #### [facility] [address] [place] [address] Dr. Jane Alexis TSHon 01-04-2022 TSH 2.294 uIU/mL Normal 0.358-3.740 [facility] Comment on above: Performed By: #### T SH #### [facility] [address] [place] [address] Dr. Jane Alexis Physician Referralon 021 Physician Referral [id number] Normal [facility] Vital Signs Date Time Vital Sign Value Performing Clinician Facility 07-11-2023 15:46-0500 Body height 165.1 cm Nelidamakayla Haydenholz BUSINESS SERVICES REPRESENTATIVE Work Phone: [facility] 07-11-2023 15:46-0500 Body mass index (BMI) [Ratio] 31.68 kg/m2 Nelida Aichholz BUSINESS SERVICES REPRESENTATIVE Work Phone: [facility] 07-11-2023 15:46-0500 Body temperature 97.39 [degF] Nelida Nandahholz BUSINESS SERVICES REPRESENTATIVE Work Phone: [facility] 07-11-2023 15:46-0500 Body weight 86.36 kg Nelida Aichholz BUSINESS SERVICES REPRESENTATIVE Work Phone: [facility] 07-11-2023 15:46-0500 Diastolic blood pressure 78 mm[Hg] Nelida Aichholz BUSINESS SERVICES REPRESENTATIVE Work Phone: [facility] 07-11-2023 15:46-0500 Heart rate 96 /min Nelida Nandahholz BUSINESS SERVICES REPRESENTATIVE Work Phone: [facility] 07-11-2023 15:46-0500 Respiratory rate 18 /min Nelida Aichholz BUSINESS SERVICES REPRESENTATIVE Work Phone: [facility] 07-11-2023 15:46-0500 SaO2% (BldA) [Mass fraction] 97 % Nelida Nandahholz BUSINESS SERVICES REPRESENTATIVE Work Phone: [facility] 07-11-2023 15:46-0500 Systolic blood pressure 118 mm[Hg] Nelida Nandahholz BUSINESS SERVICES REPRESENTATIVE Work Phone: [facility] 05-01-2023 11:40-0500 Body height 165.1 cm Stephanie Sweet Other [facility] 05-01-2023 11:40-0500 Body mass index (BMI) [Ratio] 31.95 kg/m2 Stephanie Sweet Other [facility] [employer] Other 05-01-2023 11:40-0500 Body weight 87.09 kg Stephanie Kee Other [facility] [employer] Other 05-01-2023 11:40-0500 Body weight 87.08 kg MD Shilpa Lewis Work Phone: [facility] 05-01-2023 11:40-0500 Diastolic blood pressure 82 mm[Hg] Stephanie Trammelloroge Other [facility] 05-01-2023 11:40-0500 Respiratory rate 20 /min Stephanie Trammelloroge Other [facility] Other 05-01-2023 11:40-0500 SaO2% (BldA) [Mass fraction] 96 % Stephanie Trammelloroge Other [facility] [employer] Other 05-01-2023 11:40-0500 Systolic blood pressure 136 mm[Hg] Stephanie Trammelloroge Other [facility] 04-12-2023 11:44-0500 Body temperature 98.7 [degF] MD Shilpa Lewis Work Phone: [facility] 04-12-2023 11:44-0500 Diastolic blood pressure 69 mm[Hg] MD Shilpa Lewis Work Phone: [facility] 04-12-2023 11:44-0500 Heart rate 82 /min MD Shilpa Lewis Work Phone: [facility] 04-12-2023 11:44-0500 Respiratory rate 18 /min MD Shilpa Lewis Work Phone: [facility] 04-12-2023 11:44-0500 SaO2% (BldA) [Mass fraction] 95 % MD Shilpa Lewis Work Phone: [facility] 04-12-2023 11:44-0500 Systolic blood pressure 113 mm[Hg] MD Shilpa Lewis Work Phone: [facility] 04-12-2023 06:00-0500 Body weight 88.7 kg MD Shilpa Lewis Work Phone: [facility] 04-12-2023 04:33-0500 Inhaled oxygen concentration 21 % MD Shilpa Lewis Work Phone: [facility] 04-10-2023 10:18-0500 Body height 165.1 cm MD Shilpa Lewis Work Phone: [facility] Encounters Encounter Date Encounter Type Care Provider Facility Start: 07-12-2023 End: 07-12-2023 ambulatory Stephanie Kee Facility:[facility] Start: 07-12-2023 End: 07-12-2023 ambulatory MD Shilpa Lewis Work Phone: [facility] Work Phone: Start: 07-12-2023 End: 07-12-2023 Patient encounter procedure MD Shilpa Lewis Work Phone: [facility] Work Phone: Start: 07-11-2023 End: 07-11-2023 ambulatory NELIDA AMBROSIO Not Available Start: 07-11-2023 End: 07-11-2023 Office outpatient visit 25 minutes Nelida Ambrosio BUSINESS SERVICES REPRESENTATIVE Work Phone: [facility] Comment on above: Type 2 diabetes gerald itus with hyperglycemia, without long-term current use of insulin (CMS/HCC) (Primary Dx); Obesity with body mass index (BMI) of 30.0 to 39.9; Tobacco user; Essential (primary) hypertension (CMS/HCC); Acute heart failure, unspecified heart failure type (CMS/HCC); Anxiety Start: 07-11-2023 Bamboo flowsheet Nelida Ambrosio BUSINESS SERVICES REPRESENTATIVE Work Phone: [facility] Start: 07-11-2023 Bamboo flowsheet Nelida Ambrosio BUSINESS SERVICES REPRESENTATIVE Work Phone: [facility] Start: 07-06-2023 Clinisync Result Encounter Nelida Ambrosio BUSINESS SERVICES REPRESENTATIVE Work Phone: [facility] Unsolicited Start: 07-06-2023 Clinisync Result Encounter Nelida Haydenyejorge BUSINESS SERVICES REPRESENTATIVE Work Phone: [facility] Unsolicited Start: 06-11-2023 End: 06-11-2023 ambulatory Stephanie Kee Other [facility] Other Start: 06-11-2023 Telephone encounter Stephanie Kee 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 Start: 06-10-2023 End: 06-10-2023 ambulatory Stephanie Kee Other [facility] Other Start: 06-10-2023 Telephone encounter Stephanie Kee [facility] Start: 05-20-2023 End: 05-20-2023 ambulatory NELIDA AMBROSIO Not Available Start: 05-08-2023 End: 05-08-2023 ambulatory Stephanie Kee Other [facility] Other Start: 05-08-2023 Telephone encounter Stephanie Kee L[facility] Start: 05-01-2023 End: 05-01-2023 ambulatory Stephanie Kee Other [facility] Other Start: 05-01-2023 Office outpatient vi sit 25 minutes Stephanie Sweet [facility] Start: 05-01-2023 End: 05-01-2023 Patient encounter procedure MD Shilpa Lewis Work Phone: [facility] Work Phone: Start: 04-10-2023 End: 04-12-2023 Evaluation and management of inpatient Alaa Alahmad Facility:[facility] Start: 04-10-2023 End: 04-12-2023 Evaluation and management of inpatient MD Shilpa Lewis Work Phone: [facility] Work Phone: Start: 01-04-2022 End: 01-05-[address] SHILPA LEWIS Facility:[facility]1 Procedures Date Procedure Procedure Detail Performing Clinician Start: 07-06-2023 ALL LIPID PROFILE (FASTING) Nelida Ambrosio BUSINESS SERVICES REPRESENTATIVE Work Phone: Start: 07-06-2023 [facility] ALT Nelida Shon lindsay BUSINESS SERVICES REPRESENTATIVE Work Phone: Start: 07-06-2023 [facility] AST Nelida lindsay BUSINESS SERVICES REPRESENTATIVE Work Phone: Start: 04-11-2023 MD Shilpa Lewis Work Phone: Start: 04-11-2023 CL LHC & COR Angio (Right) MD Shilpa Lewis Work Phone: Start: 04-11-2023 CL PTCA 1st Vessel R CA (Right) MD Shilpa Lewis Work Phone: Start: 04-11-2023 CL Stent 1st Vessel LAD NILSA (Right) MD Shilpa Lewis Work Phone: Start: 04-10-2023 Plain chest X-ray MD Gentry Lewis Work Phone: Start: 09-19-2020 Mammography Nelida Shon lindsay BUSINESS SERVICES REPRESENTATIVE Work Phone: Start: 10-12-2015 General examination of patient Stephanie Sweet Other Viral screening Stephanie cullen Other Plan of Treatment Date Care Activity Detail Author Start: 09-27-2025 Screening for malign ant neoplasm of cervix [facility] Start: 09-09-2023 End: 09-09-2023 Patient encounter procedure 09/09/2023 3:40 PM EDT Office Visit [facility] [address] [place] [phone] Nelida Ambrosio NP [address] [place] [id number] [facility] Start: 08-02-2023 Hemoglobin A1c measurement Diabetes: Hemoglobin A1C [facility] Start: 08-02-2023 Screening for malign ant neoplasm of breast Mammogram [facility] Comment on above: Postponed from 09/19 (Other Medical Reasons) Start: 07-11-2023 End: 07-11-2023 Patient encounter procedure 07/11/2023 3:40 PM EST Office Visit [facility] [address] [place] [phone] Nelida Ambrosio, BUSINESS SERVICES REPRESENTATIVE [address] [place] [phone] [facility] Start: 04-12-2023 [facility] Start: 04-10-2023 Hospital admission [facility] Start: 04-10-2023 Sleep disorder assessment [facility] Start: 02-01-2023 Influenza vaccination Influenza Vacc ine (#1) [facility] Start: 11-14-1995 Screening for malign ant neoplasm of cervix Pap Smear [facility] Start: 1993 Urine screening for protein Diabetes: Urine Protein Screening [facility] Start: 1984 Glaucoma screening Diabetes: R etinopathy Screening [facility] Start: 1974 Screening for malign ant neoplasm of colon [facility] Patient Education Coronary Angio plasty (DC) Coronary Stenting (DC) Angina (DC) Chest Pain (DC) Coronary Artery Disease (DC) Coronary artery disease in women Drug Eluting Stents [facility] Work Phone: Patient referral [facility] Work Phone: Payers Date Payer Category Payer Private Health Insurance [facility] [id number] 2023 Self-pay [id number] 2019 Private Health Insurance LAURENJENNIFER Rosa Isela FITZGERALD [id number] 2019-Present [address] [place] [id number] [id number] 1975 Unknown [id number] 1975 Unknown [id number] 1974 Unknown [id number] 1960 Private Health Insurance [facility] [id number] Unknown [id number] Unknown [id number] Social History Date Type Detail Facility Start: 04-11-2023 Tobacco smoking stat [facility] Smoker (finding) [facility] Start: 1975 Sex Assigned At [facility] Start: 05-20-2023 End: 07-11-2023 Sex Assigned At [facility] Start: 05-20-2023 Tobacco smoking stat [facility] Smokes tobacco daily [facility] History of tobacco use Cigarette Smoker [facility] Start: 05-20-2023 End: 07-11-2023 Cigarettes smoked current (pack per day) - Reported 0.5 [facility] Start: 05-20-2023 Tobacco use and exposure Smokeless tobacco non-user [facility] Start: 06-19-2023 End: 07-11-2023 Alcohol intake Ex-drinker (finding) [facility] Within the last year , have you been afraid of your partner or ex-partner? No [facility] Are you now , , , , never or living with a partner? [facility] How often to you hav e a drink containing alcohol? Never [facility] How many standard drinks containing alcohol do you have on a typical day? Patient does not drink [facility] Do you feel stress - tense, restless, nervous, or anxious, or unable to sleep at night because your mind is troubled all the time - these days [OSQ] Only a little [facility] (I/We) worried wheth er (my/our) food would run out before (I/we) got money to buy more. Never true [facility] Start: 05-20-2023 Alcohol Comment Pepsi:2 cups daily [facility] Start: 1975 Sex Assigned At Not on file [facility] Medical Equipment Procedure Code Equipment Code Equipment Origin al Text Equipment Identifier Dates CL STENT GARTH FRONTIER 3.5 X 15 FDA Start: 04-11-2023 USE 1 A DAY [id number] Start: 04-17-2023 USE 1 DAILY [id number] Start: 04-17-2023 CL STENT GARTH FRONTIER 3.5 X 15 FDA Start: 04-11-2023 Goals Date Patient Goal Desired Activity /State Functional Status Date Assessment Result Facility 04-12-2023 Functional status Patient at Baseline [facility] Work Phone: Mental Status Date Assessment Result Facility 04-12-2023 Cognitive function Cognitive Sta tus Patient at Baseline [facility] Work Phone: Clinical Notes 04-10-2023 to 07-11-2023 Nelida Ambrosio NP - 07/11/2023 4:43 PM Cleve Ambrosio NP - 07/11/2023 4:41 PM Cleve Ambrosio NP - 07/11/2023 4:39 PM ESTHUMBZANE HARRIS - 07/11/2023 3:40 PM EST Note Date & Type Note Facility 07-11-2023 History of Presen t illness Narrative Associated Problem(s): Acute heart failure (CMS/HCC) Continue with cardiology Has echo tomorrow Associated Problem(s): Anxiety Doing ok on sertraline, we will increase buspirone to 7.5mg BID Fu in 2 months Associated Problem(s): Type 2 diabetes mellitus with hyperglycemia, without long-term current use of insulin (CMS/HCC) Will add farxiga 5mg daily, pt reports she just called cardiology they stated that would be fine to start #3 boxes for Farxiga 10mg given instructions are 1/2 pill daily, lot # [id number] Echo tomorrow Hide Washer on 07/24 Sleep study 07/22 Pt asking if she needs another refill on the brillanta 90mg Images from the original note were not included. Lorraine Mitchell is a 47 y.o. female presents with chief complaint of No chief complaint on file. HPI: Hypertension This is a chronic problem. The current episode started more than 1 year ago. The problem is unchanged. The problem is controlled. Associated symptoms include anxiety and chest pain. Pertinent negatives include no headaches, palpitations, peripheral edema or shortness of breath. There are no associated agents to hypertension. Risk factors for coronary artery disease include diabetes mellitus, dyslipidemia, obesity, post-menopausal state and smoking/tobacco exposure. Past treatments include angiotensin blockers, beta blockers and diuretics. The current treatment provides significant improvement. There are no compliance problems. Hypertensive end-organ damage includes CAD/HI, heart failure and left ventricular hypertrophy. Diabetes She presents for her follow-up diabetic visit. She has type 2 diabetes mellitus. Her disease course has been improving. Hypoglycemia symptoms include nervousness/anxiousness. Pertinent negatives for hypoglycemia include no dizziness, headaches, seizures or tremors. Associated symptoms include chest pain and polyuria. Pertinent negatives for diabetes include no fatigue, no polydipsia and no polyphagia. There are no hypoglycemic complications. Symptoms are improving. There are no diabetic complications. Risk factors for coronary artery disease include diabetes mellitus, dyslipidemia, hypertension, obesity, sedentary lifestyle, tobacco exposure and post-menopausal. Current diabetic treatment includes oral agent (dual therapy). She is compliant with treatment all of the time. Her weight is decreasing steadily. She is following a diabetic diet. She participates in exercise three times a week. Her overall blood glucose range is 180-200 mg/dl. An KIMMY inhibitor/angiotensin II receptor raina is being taken. Eye exam is not current. Anxiety Presents for follow-up visit. Symptoms include chest pain, depressed mood, irritability and nervous/anxious behavior. Patient reports no decreased concentration, dizziness, nausea, palpitations, shortness of breath or suicidal ideas. Symptoms occur most days. The severity of symptoms is mild. Compliance with medications is 76-100%. SUBJECTIVE: MEDICATIONS: Current Outpatient Medications Medication Instructions Alcohol Swabs (CVS Alcohol Prep Pads) 70 % pads USE 1 PER DAY atorvastatin (LIPITOR) 80 mg, Oral, Nightly Blood Glucose Monitoring Suppl (True Metrix Meter) w/Device kit USE 1 DAILY Brilinta 90 MG tablet 1 tablet, Oral, 2 times daily busPIRone (BUSPAR) 7.5 mg, Oral, 2 times daily carvedilol (COREG) 6.25 mg, Oral, 2 times daily with meals CVS Aspirin Low Dose 81 mg, Oral, Daily CVS Lancets Micro Thin 33G misc USE 1 A DAY dapagliflozin (FARXIGA) 5 mg, Oral, Daily isosorbide mononitrate ER (IMDUR) 30 mg, Oral, Daily levothyroxine (SYNTHROID, LEVOXYL) 25 mcg, Oral, Daily before breakfast losartan (COZAAR) 25 mg, Oral, Daily metFORMIN (GLUCOPHAGE) 1,000 mg, Oral, 2 times daily with meals nitroglycerin (NITROSTAT) 0.4 mg, Sublingual, Every 5 min PRN sertraline (ZOLOFT) 50 mg, Oral, Every morning spironolactone (ALDACTONE) 25 mg, Oral, Daily tiZANidine (ZANAFLEX) 4 mg, Oral, Nightly PRN True Metrix Blood Glucose Test test strip USE 1 DAILY ALLERGIES: No Known Allergies REVIEW OF SYMPTOMS: Review of Systems Constitutional: Positive for irritability. Negative for appetite change, chills, fatigue and fever. HENT: Negative for congestion, ear pain and sore throat. Eyes: Negative for pain, discharge, redness and visual disturbance. Respiratory: Negative for cough, shortness of breath and wheezing. Cardiovascular: Positive for chest pain. Negative for palpitations and leg swelling. Gastrointestinal: Negative for abdominal pain, blood in stool, constipation, diarrhea, nausea and vomiting. Genitourinary: Negative for difficulty urinating, dysuria and frequency. Musculoskeletal: Negative for arthralgias, back pain, joint swelling and myalgias. Skin: Negative for rash and wound. Neurological: Negative for dizziness, tremors, seizures, syncope and headaches. Psychiatric/Behavioral: Negative for behavioral problems, decreased concentration, self-injury and suicidal ideas. The patient is nervous/anxious. Hematological: Does not bruise/bleed easily. Endocrine: Positive for polyuria. Negative for polydipsia and polyphagia. Allergic/Immunologic: Negative for environmental allergies and food allergies. PAST MEDICAL HISTORY Past Medical History: Diagnosis Date Acute heart failure ([facility]) 05/09/2023 Acute hemorrhoid Anxiety 05/09/2023 Aphthous ulcer Cold sore Coronary artery disease involving [place] coronary artery of [place] heart with angina pectoris ([facility]) 05/09/2023 COVID-19 viremia Depression ([facility] Diastasis recti Essential (primary) hypertension ([facility]) 05/09/2023 Eustachian salpingitis, left Hypertriglyceridemia ([facility]) hypertriglycerides Hypothyroidism (acquired) ([facility]) 05/09/2023 Left ankle swelling Mixed hyperlipidemia ([facility]) 05/09/2023 Obesity with body mass index (BMI) of 30.0 to 39.9 07/11/2023 PIPPA (obstructive sleep apnea) 05/08/2023 Right ovarian cyst Right-sided Pa's palsy Sinusitis, bacterial Toe pain, left Type 2 diabetes mellitus with hyperglycemia, without long-term current use of insulin ([facility]) 05/09/2023 Yeast infection of the vagina 04/29/2023 Past Surgical History: Procedure Laterality Date ADENOIDECTOMY 1981 SECTION, LOW TRANSVERSE 2004 CHOLECYSTECTOMY 2009 HYSTERECTOMY 11/2020 TLH, BSO TONSILLECTOMY 1981 TandA family history includes Brain Aneurysm in her paternal grandmother; COPD in her maternal grandmother; Cancer in her father and maternal grandmother; Diabetes in her paternal grandmother; Heart disease in her father, maternal grandfather, maternal grandmother, and paternal grandmother; Hypertension in her father and mother; Thyroid disease in her mother. OBJECTIVE: Visit Vitals BP 118/78 (BP Location: Left arm, Patient Position: Sitting, BP Cuff Size: Adult long) Pulse 96 Temp 97.4 F (Temporal) Resp 18 Ht 5' 5 Wt 190 lb 6.4 oz SpO2 97% BMI 31.68 kg/m Smoking Status Every Day BSA 1.99 m Physical Exam Vitals reviewed. Constitutional: General: She is not in acute distress. Appearance: Normal appearance. HENT: Head: Normocephalic and atraumatic. Right Ear: External ear normal. Left Ear: External ear normal. Nose: Nose normal. Mouth/Throat: Mouth: Mucous membranes are moist. Eyes: Extraocular Movements: Extraocular movements intact. Conjunctiva/sclera: Conjunctivae normal. Cardiovascular: Rate and Rhythm: Normal rate and regular rhythm. Pulses: Normal pulses. Heart sounds: Normal heart sounds. Comments: Has external defibrillator on Pulmonary: Effort: Pulmonary effort is normal. Breath sounds: Normal breath sounds. Abdominal: General: Bowel sounds are normal. There is no distension. Palpations: Abdomen is soft. There is no mass. Tenderness: There is no abdominal tenderness. Musculoskeletal: General: Normal range of motion. Cervical back: Normal range of motion and neck supple. Skin: General: Skin is warm and dry. Capillary Refill: Capillary refill takes 2 to 3 seconds. Findings: No rash. Neurological: General: No focal deficit present. Mental Status: She is alert and oriented to person, place, and time. Psychiatric: Mood and Affect: Mood normal. Behavior: Behavior normal. Thought Content: Thought content normal. Judgment: Judgment normal. ASSESSMENT AND PLAN: No follow-ups on file. Problem List Items Addressed This Visit Type 2 diabetes mellitus with hyperglycemia, without long-term current use of insulin ([facility]) Will add farxiga 5mg daily, pt reports she just called cardiology they stated that would be fine to start #3 boxes for Farxiga 10mg given instructions are 1/2 pill daily, lot # [id number] Essential (primary) hypertension (CMS/HCC) - Primary Acute heart failure (CMS/HCC) Continue with cardiology Has echo tomorrow Anxiety Doing ok on sertraline, we will increase buspirone to 7.5mg BID Fu in 2 months Relevant Medications busPIRone (Buspar) 7.5 MG tablet Obesity with body mass index (BMI) of 30.0 to 39.9 Tobacco user documented in this encounter [facility] 05-08-2023 Evaluation note Encounter Date Diagnosis Assessment Notes May, Ischemic cardiomyopathy (ICD-10 - I25.5) [facility] Other 11-29-2023 Evaluation note* Encounter Date Diagnosis Assessment Notes Treatment Notes Treatment Clinical Notes Apr, History of non-ST elevation myocardial infarction (NSTEMI) (ICD-10 - I25.2) Ms Mitchell is a a 47 yr old female, seen [place] [facility] [place] for NSTEMI. Cath and PCI to the LAD was successful. Unsuccessful attempt to cross the RCA lesion. HX of DM type 2, HTN, PIPPA, hyperlipidemia. ECHO 04/10/2023: EF of 25-30% with grade 1 diastolic dysfunction. Trace MR, trace TR. [facility] 04/11/2023 consistent with severe two-vessel CAD-70% proximal LAD and 100% proximal RCA. Status post PCI to proximal LAD with 3.5 x 15 mm Ruffin NILSA. 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 Assessment: 2v CAD s/p PCI to LAD (presented with NSTEMI) Systolic heart failure. Euvolemic Hypertension Hyperlipidemia Diabetes type 2 Active tobacco use Family history of premature CAD Morbid obesity PIPPA not compliant with CPAP Plan: - [facility] 04/11/2023 consistent with severe two-vessel CAD-70% proximal LAD and 100% proximal RCA. Status post PCI to proximal LAD with 3.5 x 15 mm Garth NILSA. 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 -Continue DAPT-aspirin 81 mg daily plus Brilinta [...] I25.5) Apr, Post PTCA (ICD-10 - Z98.61) [facility] Other 11-10-2023 Hospital Discharge instructions Additional Instructions [...] doctor or pharmacist, without first calling the neon light installer who implanted the stent. If you require [...] weight lifting, stair steppers, etc. until the neon light installer approves these activities. Check with the neon light installer on your first follow-up visit. CALL YOUR PHYSICIAN at [phone]: -If bleeding should occur from the catheter insertion site- apply pressure to the site then immediately call us. -Report any fever, redness, drainage, increased swelling, or firmness at the catheter insertion site. Some bruising or slight swelling may be present at the time of discharge. -Should arm or leg become cold, numb, white, or blue, contact the neon light installer immediately. -IF you should experience episodes of [...] is recommended. Please call Central Scheduling at [phone] to schedule your appointment.] The attending neon light installer or [facility] nurse clinician should provide you with specific instructions regarding activity, diet, medications, and further follow up for you. Follow the medication instructions provided on your discharge. If the dosages and instructions on this sheet differ from the dosage and instructions on the bottle, follow the instructions on the bottle. [facility] is not responsible for incorrect prescription information provided by the patient during their visit. Do not stop your medications without consulting your health care provider. Please take the list with you to your next doctor's appointment.[facility] Work Phone: [phone]) 580-762711-10-2023 Discharge summary Author Florentino Kenyon [facility] April 12, 2023 9:01am Note Date/Time April 12, 2023 9:01am [facility] [address] [place] [address] Discharge Summary Signed Patient: Lorraine Mitchell MR#: [id number] : 1975 Acct:[id number] Age/Sex: 47 / F Adm Date: 3 Loc: Room: [address] [place] [address]: Florentino Kenyon MD Copies to: [...] stented with a 3.5 x 15 mm Ruffin stent at 18 john with a residual [...] doctor or pharmacist, without first calling the neon light installer who implanted the stent. If you require [...] weight lifting, stair steppers, etc. until the neon light installer approves these activities. Check with the neon light installer on your first follow-up visit. CALL YOUR PHYSICIAN at [phone]: -If bleeding should occur from the catheter insertion site- apply pressure to the site then immediately call us. -Report any fever, redness, drainage, increased swelling, or firmness at the catheter insertion site. Some bruising or slight swelling may be present at thetime of discharge. -Should arm or leg become cold, numb, white, or blue, contact the neon light installer immediately. -IF you should experience episodes of [...] is recommended. Please call Central Scheduling at [phone] to schedule your appointment.] The attending neon light installer or [facility] nurse clinician should provide you with specific instructions regarding activity, diet, medications, and further follow up for you. Follow the medication instructions provided on your discharge. If the dosages and instructions on this sheet differ from the dosage and instructions on the bottle, follow the instructions on the bottle. [facility] is not responsible for incorrect prescription [...] By: <Electronically signed by Florentino Kenyon MD> 04/12/23 09 [facility] Work Phone: 1(456) 761-720311-09-2023 Consult note Author Magali Cortez [facility] April 11, 2023 6:12pm Note Date/Time April 11, 2023 6 :12pm [facility] [address] [place] [address] Cardiology Consult Note Signed Patient: Lorraine Mitchell MR#: [id number] : 1975 Acct:[id number] Age/Sex: 47 / F Adm Date: 3 Loc: Room: [address] [place] [address] Type: ADM IN Attending Dr: Florentino Kenyon MD Copies to: MD Shilpa Skinner MD W Scott Sheldon, DO~ Cardiology HPI History of Present Illness Consult Date: 04/11/23 Reason for Consult: Non-ST elevation HI, two-vessel ASHD, ischemic cardiomyopathy HPI: Ms. Mitchell [...] alsohad premature CAD. Patient initially presented to [facility] where troponin was positive: 248-256. BNP elevated at 1327. EKG showed sinus tachycardia. Echo today shows EF of 25-30% with grade 1 diastolic dysfunction. Trace MR, trace TR. Troponin trend on arrival [phone] Catheterization was reviewed with primary neon light installer, there is appears to be athrombotic occlusion of the proximal dominant RCA, and moderate 70% disease of the proximal LAD. We will proceed with PCI of the LAD, and attempted crossing of what appears to be a thrombotic occlusion of the RCA. [facility] Medical History (Updated 04/10/23 @ 11:06 by [...] Lymph # (Auto) 3.2 3.0 (1.00-4.8) x10E3/uL [place] # (Auto) 0.4 0.5 (0.0-0.8) x10E3/uL Eos # (Auto) 0.1 0.1 (0.0-0.45) x10E3/uL Baso # (Auto) 0.1 0.0 (0.0-0.2) x10E3/uL Comprehensive Metabolic Panel 04/11/23 Range/Units 04:27 Sodium 136 (136-145) mmol/L Potassium 3.8 (3.5-5.1) mmol/L Chloride 101 (98-107) mmol/L Carbon Dioxide 26.7 (21.0-31.0) mmol/L BUN 11 (7-25) mg/dL Creatinine 0.47 L (0.60-1.20) mg/dL Intake and Output 04/10/23 04/11/23 04/11/23 23:59 07:59 15:59 Intake Total 300 [...] infarction Documented By: Magali Cortez DO 04/11/23 1541 Signed By: <Electronically signed by Magali Cortez DO> 04/11/23 1816 [facility] Work Phone: 1([phone] 271-803211-09-2023 Progress note Author Stephanie Sweet [facility] April 11, 2023 1:12pm Note Date/Time April 11, 2023 1 :09pm [facility] [address] [place] [address] Cardiology Progress Note Signed Patient: Lorraine Mitchell MR#: [id number] : 1975 Acct:[id number] Age/Sex: 47 / F Adm Date: 3 Loc: 4P Room: 8D9719-2 Type: ADM IN Attending Dr: Florentino Kenyon [...] alsohad premature CAD. Patient initially presented to [facility] where troponin was positive: 248-256. BNP elevated at 1327. EKG showed sinus tachycardia. Echo today shows EF of 25-30% with grade 1 diastolic dysfunction. Trace MR, trace TR. Interim history 04/11/2023: Troponin continues to uptrend 899-->2200. Reports minimal chest pain today. Heparin drip restarted last night. [facility] today Exam Physical Exam Vital Signs: Temp [...] MPV Neut % (Auto) Lymph % (Auto) [place] % (Auto) Eos % (Auto) Baso % (Auto) Nucleat RBC Rel Count Neut # (Auto) Lymph # (Auto) [place] # (Auto) Eos # (Auto) Baso # [...] % (Auto) 56.6 Lymph % (Auto) 36.2 [place] % (Auto) 4.6 Eos % (Auto) 1.2 Baso % (Auto) 1.4 Nucleat RBC Rel Count 0.1 Neut # (Auto) 5.0 Lymph # (Auto) 3.2 [place] # (Auto) 0.4 Eos # (Auto) 0.1 [...] MPV Neut % (Auto) Lymph % (Auto) [place] % (Auto) Eos % (Auto) Baso % (Auto) Nucleat RBC Rel Count Neut # (Auto) Lymph # (Auto) [place] # (Auto) Eos # (Auto) Baso # [...] % (Auto) 59.4 Lymph % (Auto) 33.4 [place] % (Auto) 5.8 Eos % (Auto) 0.9 Baso % (Auto) 0.5 Nucleat RBC Rel Count 0.1 Neut # (Auto) 5.3 Lymph # (Auto) 3.0 [place] # (Auto) 0.5 Eos # (Auto) 0.1 [...] MPV Neut % (Auto) Lymph % (Auto) [place] % (Auto) Eos % (Auto) Baso % (Auto) Nucleat RBC Rel Count Neut # (Auto) Lymph # (Auto) [place] # (Auto) Eos # (Auto) Baso # [...] alsohad premature CAD. Patient initially presented to [facility] where troponin was positive: 248-256. BNP elevated at 1327. EKG showed sinus tachycardia. Echo today shows EF of 25-30% with grade 1 diastolic dysfunction. Trace MR, trace TR. Troponin trend on arrival [phone] Assessment: NSTEMI Systolic heart failure. Euvolemic Hypertension [...] signed by Stephanie Sweet MD> 04/11/23 1312 [facility] Work Phone: [phone] 397-420811-09-2023 [facility]2023 Progress note Author Florentino Kenyon [facility] April 11, 2023 9:50am Note Date/Time April 11, 2023 9 :48am [facility] [address] [place] [address] Hospitalist Progress Note Signed Patient: Lorraine Mitchell MR#: [id number] : 1975 Acct:[id number] Age/Sex: 47 / F Adm Date: 3 Loc: 4P Room: [address] [place] [address] Type: ADM IN Attending Dr: Florentino Kenyon [...] 04/10/23 11:15 04/11/23 08:17 Aspirin 81 Mg Tablet. PO 04/09/24 11:14 81 mg DAILY ALDO Administration Atorvastatin Calcium 80 mg 04/10/23 21:00 04/10/23 21:34 Atorvastatin 80 Mg Tablet PO 04/09/24 20:59 80 mg QPM ALDO Administration Bisacodyl 10 mg 04/10/23 10:57 Bisacodyl 5 Mg Tablet. PO 04/09/24 10:56 DAILY PRN Constipation Dextrose [...] nicotine patch: Documented By: Florentino Kenyon MD 04/11/23 0945 Signed By: <Electronically signed by Florentino Kenyon MD> 04/11/23 0950 [facility] Work Phone: 1([phone]) 491-936811-08-2023 Consult note Author Stephanie Sweet [facility] April 10, 2023 8:00pm Note Date/Time April 10, 2023 7 :53pm [facility] [address] [place] [address] Cardiology Consult Note Signed Patient: Lorraine Mitchell MR#: [id number] : 1975 Acct:[id number] Age/Sex: 47 / F Adm Date: 3 Loc: Room: [address] [place] [address] Type: ADM IN Attending Dr: Florentino Kenyon [...] alsohad premature CAD. Patient initially presented to [facility] where troponin was positive: 248-256. BNP elevated at 1327. EKG showed sinus tachycardia. Echo today shows EF of 25-30% with grade 1 diastolic dysfunction. Trace MR, trace TR. Review of Systems Review of Systems All other systems reviewed & are negative unless noted below or in HPI [facility] Medical History (Updated 04/10/23 @ 11:06 by Florentino Kenyon MD) Diabetes PIPPA (obstructive sleep apnea) Surgical History (Updated 04/10/23 @ 10:35 by Kathya Arambula, KENDRICK) H/O: hysterectomy History of cholecystectomy Family History [...] alsohad premature CAD. Patient initially presented to [facility] where troponin was positive: 248-256. BNP elevated at 1327. EKG showed sinus tachycardia. Echo today shows EF of 25-30% with grade 1 diastolic dysfunction. Trace MR, trace TR. Troponin trend on arrival [phone] Assessment: NSTEMI Systolic heart failure. Euvolemic Hypertension [...] Will follow. Documented By: Stephanie Sweet MD 04/10/23 655 Signed By: <Electronically signed by Stephanie Sweet MD> 04/10/231999 [facility] Work Phone: [phone] 137-120911-08-2023 History and physical note Author Florentino Kenyon [facility] April 10, 2023 11:10am Note Date/Time April 10, 2023 1 1:10am [facility] [address] [place] [address] Hospitalist H&P Signed Patient: Lorraine Mitchell MR#: [id number] : 1975 Acct:[id number] Age/Sex: 47 / F Adm Date: 3 Loc: 4 Room: [address] [place] [address] Type: ADM IN Attending Dr: Florentino Kenyon [...] negative unless noted below or in HPI [facility] Medical History (Updated 04/10/23 @ 11:06 by [...] 1102 Signed By: <Electronically signed by Florentino Kenyon MD> 04/10/23 1110 [facility] Work Phone: Evaluation note* Diagnosis Onset Date Resolution Status Diabetes type 2, controlled acute Hyperlipidemia acute Hypertension acute Nicotine abuse acute Non-STEMI (non-ST elevated myocardial infarction) acute PIPPA (obstructive sleep apnea) acute [facility] Work Phone: Evaluation noteNo InformationNortVigster Other Evaluation noteNo assessment information available [facility] Work Phone: evaluation note* Diagnosis Type 2 diabetes mellitus with hyperglycemia, without long-term current use of insulin (CMS/FORMERLY [facility])- Primary Obesity with body mass index (BMI) of 30.0 to 39.9 Tobacco user Tobacco use disorder Essential (primary) hypertension (CMS/HCC) Unspecified essential hypertension Acute heart failure, unspecified heart failure type (CMS/HCC) Anxiety Anxiety state, unspecified documented in this encounter [facility] N[facility]ative - Reported* Type Description Date [...] of, Problem Comment : Cholecystectomy Lap - 2008 Umbilical hernia repair - 2007 3 cysts removed from ovaries [...] History cath/PCI 04/2023 Hospitalization History NSTEMI 04/2023 [facility] Other Progress note Author Stephanie Sweet [facility] April 12, 2023 2:38pm Note Date/Time April 12, 2023 2:30pm [facility] [address] [place] [address] Cardiology Progress Note Signed Patient: Lorraine Mitchell MR#: [id number] : 1975 Acct:[id number] Age/Sex: 47 / F Adm Date: 3 Loc: Room: [address] [place] [address] Type: ADM IN Attending Dr: Florentino Kenyon [...] alsohad premature CAD. Patient initially presented to [facility] where troponin was positive: 248-256. BNP elevated at 1327. EKG showed sinus tachycardia. Echo today shows EF of 25-30% with grade 1 diastolic dysfunction. Trace MR, trace TR. Interim history 04/11/2023: Troponin continues to uptrend 899-->2200. Reports minimal chest pain today. Heparin drip restarted last night. [facility] today Interim history 04/12/2023: Status post LHC [...] alsohad premature CAD. Patient initially presented to [facility] where troponin was positive: 248-256. BNP elevated at 1327. EKG showed sinus tachycardia. Echo today shows EF of 25-30% with grade 1 diastolic dysfunction. Trace MR, trace TR. Troponin trend on arrival [phone] Assessment: NSTEMI Systolic heart failure. Euvolemic Hypertension Hyperlipidemia Diabetes type 2 Active tobacco use Family history of premature CAD Morbid obesity PIPAP not compliant with CPAP Recommendations: - [facility] 04/11/2023 consistent with severe two-vessel CAD-70% proximal LAD and 100% proximal RCA. Status post PCI to proximal LAD with 3.5 x 15 mm Garth NILSA. 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 Appreciate Dr Cortez's assistance in this case. [...] she change her mind. -2-week follow-up with [facility] cardiology. Documented By: Stephanie Sweet MD 04/12/23 1129 Signed By: <Electronically signed by Stephanie Sweet MD> 04/12/23 1438 [facility] Work Phone: Reason for visit NarrativeCARDIAC REHAB REFERRAL [facility] [employer] Other Summary Purpose Family History Relationship Condition Age at Onset Recorded Date/T liam sister Malignant neoplasm of pancreas Unknown father Malignant neoplasm of colon Unknown father Myocardial infarction Unknown Not Specified Cerebrovascular accident (CVA) Unknown brother Status post four ves jazmine coronary artery bypass Unknown Relationship Condition Age at Onset Recorded Date/T liam sister Malignant neoplasm of pancreas Unknown father Malignant neoplasm of colon Unknown father Myocardial infarction Unknown Not Specified Cerebrovascular accident (CVA) Unknown brother Status post four ves jazmine coronary artery bypass Unknown brother Heart disease Unknown father Unknown Heart disease Unknown Not Specified Diabetes mellitus Unknown Hypertension Unknown sister Malignant neoplasm Unknown Advance Directives Advance Directive Response Recorded Date/ Time Advance Directives No November 15 12:56pm Chief Complaint and Reason for Visit Chief Complaint Non Stemi Reason for Visit Diabetes type 2, con trolled Hyperlipidemia Hypertension Nicotine abuse Non-STEMI (non-ST elevated myocardial infarction) PIPPA (obstructive sleep apnea) Chief Complaint [facility]: 2wks i25.2 I25.5 Reason for Referral Reason Cardiac rehab Diagnosis 1 Ischemic cardiomyopa thy (I25.5) Diagnosis 2 Post PTCA (Z98.61) Diagnosis 3 History of non-ST el evation myocardial infarction (NSTEMI) (I25.2) Referral Organization [facility] Cardiology Referring Provider First Name Stephanie Referring Provider Last Name Kee Referring Provider Specialty Cardiovascu lar Disease Referred Organization [facility] Referred Address [address] [place], [place],[address] Referred Provider Specialty Cardiology Referral Priority Routine General Notes Cecilia Acuña 02:15:12 PM >received today, attachments made, waiting for notes to be locked Clinical Notes central scheduling f: [phone] Additional Source Comments INFORMATION SOURCE (unrecogn ized section and content) DATE CREATED AUTHOR 08/19/2020 [facility] DATE CREATED AUTHOR AUTHOR'S ORGANIZ ATION 01/08/2022 [facility] DATE CREATED AUTHOR AUTHOR'S ORGANIZ ATION 07/13/2023 [facility] EPIC DATE CREATED AUTHOR AUTHOR'S ORGANIZ ATION 07/13/2023 [facility] Care Teams (unrecognized sec tion and content) Team Status: Active Member Role Status Dates Shilpa Lewis MD Primary Care Provider Active Team Status: Inactive Member Role Status Dates Shilpa Lewis MD Primary Care Provider Active Florentino Kenyon MD Admit Provider, Attending Provider A ctive Land Acquisition Manager Relationship Specialty Start Date End Date Thom Weinberg MD [address] [place] [phone] PCP - General Family Medicine 05/20/23 Nelida Ambrosio NP [address] [place] [phone] Nurse Practitioner Family Medicine 04/19/23 Team Status: Inactive Member Role Status Dates Stephanie Sweet MD Attending Provider Active Sta rt: May 01, 2023 End: May 01, 2023 Team Status: Inactive Member Role Status Dates Shilpa Lewis MD Primary Care Provider Active Start: July 12, 2023 End: July 12, 2023 Stephanie Sweet MD Attending Provider Active Sta rt: July 12, 2023 End: July 12, 2023 Land Acquisition Manager Relationship Specialty Start Date End Date Thom Weinberg MD [address] [place] [phone] PCP - General Family Medicine 05/20/23 Nelida Ambrosio NP [address] [place] [phone] Nurse Practitioner Family Medicine 04/19/23 Land Acquisition Manager Relationship Specialty Start Date End Date Naderer, Thom, MD [address] [place] [phone] PCP - General Family Medicine 05/20/23 Nelida Ambrosio NP [address] [place] [address] Nurse Practitioner Family Medicine 04/19/23 REASON FOR VISIT (unrecogniz ed section and content) [facility] 2WKSClinical Acute Ill nessClinical Goals (unrecognized section and content) Goals may be documented in a n alternate section FOR RECORDS PERTAINING TO PATIENTS WHO ARE [...] BE BASED ON THE PRIMARY CLINICAL RECORDS. [employer] provides no warranty or guarantee of the accuracy or completeness of information in this document.
== END 2023-07-22 19:57 | disposition home or self-care (01) ==
LOC: SLEEP 19:56
PROVIDERS: PCP Nurse Practitioner; Visit Provider Nurse Practitioner
DX: G47.33 Obstructive sleep apnea (adult) (pediatric) (principal)
CPT/HCPCS: 95810

== ENCOUNTER 2023-07-31 19:50 | Outpatient (OUT) | payer OTHER, SELFPAY ==
--- OUTSIDE RECORDS SUMMARY | 2023-07-31 19:55 | XMS_ITS | CCD ---
Author Name Unknown Address [address] [place] [address] Organization [facility] Care Team Providers Care Digital Developer Name Role Phone DR SHILPA LEWIS Admitting Unavailable JOSHUA, DR SHLIPA Cullen Attending Unavailable DR SHILPA LEWIS Primary Care Unavailable DR SHILPA LEWIS Consulting Unavailable MD Shilpa Lewis Primary Care Provider [phone] MD Florentino Kenyon Admit Provider MD Florentino Kenyon Attending Provider [phone] Stephanie Sweet Unavailable Daily MISHRA, Nelida Unavailable Thom Weinberg MD Primary Care Provider MD Shilpa Lewis Primary Care Provider [phone] MD Stephanie Sweet Attending Provider [phone] NELIDA AMBROSIO Attending Unavailable NELIDA AMBROSIO Attending Unavailable Florentino Kenyon Admitting Unavailable Florentino Kenyon Attending Unavailable Shilpa Lewis Primary Care Unavailable Stephanie Sweet Consulting Unavailable Stephanie Sweet Attending Unavailable Shilpa Lewis Primary Care Unavailable Stephanie Sweet Admitting Unavailable Medications Current Medications Medication Drug Class(es) Dates Sig (Normalized) Sig (Original) aspirin 81 mg delayed release oral tablet (11 sources) Platelet Aggregation Inhibitor, Nonsteroidal Anti-inflammatory Drug Start: 04-12-2023 take 81 mg by mouth once daily Aspirin Active 81 MG PO Daily April 12, 2023 12:00am atorvastatin 80 mg oral tablet (11 sources) HMG-CoA Reductase Inhibitor Start: 04-12-2023 End: 10-06-2023 take 80 mg by mouth once daily in the evening Atorvastatin Active 80 MG PO Every evening 30 April 12, 2023 12:00am Blood Glucose Monitoring Suppl (True Metrix Meter) w/Device kit (4 sources) Start: 04-19-2023 Blood Glucose Monitoring Suppl (True Metrix Meter) w/Device kit USE 1 DAILY 0 04/19/2023 Active busPIRone hydrochloride 5 mg oral tablet (12 sources) Start: 07-24-2023 take 7.5 mg by mouth twice daily Buspirone Active 7.5 MG PO Twice daily July 24, 2023 9:06am Start: 07-11-2023 End: 08-10-2023 take 1 tablet by mouth in the morning busPIRone (Buspar) 7.5 MG tablet Indications: Anxiety Take 1 tablet (7.5 mg) by mouth in the morning and 1 tablet (7.5 mg) before bedtime. 60 tablet 2 07/11/2023 08/10/2023 Active Start: 06-05-2023 End: 10-06-2023 take 1 tablet by mouth twice daily Buspirone Discontinued 5 MG PO Twice daily July 23, 2023 12:00am July 24, 2023 9:07am FreeTextSi tablet Orally Twice a day; Note: Source Status: Taking; Provider: Kee Brown ( ) carvedilol 6.25 mg oral tablet (11 sources) alpha-Adrenergic Raina, beta-Adrenergic Raina Start: 04-12-2023 End: 09-30-2023 take 6.25 mg by mouth twice daily at mealtime Carvedilol Active 6.25 MG PO Twice daily with meals 60 April 12, 2023 12:00am dapagliflozin 5 mg oral tablet (3 sources) Sodium-Glucose Cotransporter 2 Inhibitor Start: 07-24-2023 take 1 tablet by mouth once daily in the morning Dapagliflozin Propanediol (Farxiga) 5 mg tablet Active 5 MG PO Every morning July 24, 2023 12:00am take 5 mg by mouth in the mornin g dapagliflozin (Farxiga) 5 MG Indications: Heart Failure , Type 2 Diabetes Mellitus Take 5 mg by mouth in the morning. 0 Active isopropyl alcohol 0.7 ml/ml medicated pad (4 sources) Start: 04-17-2023 Alcohol Swabs ([facility] Alcohol Prep Pads) 70 % pads USE 1 PER DAY 0 04/17/2023 Active 24 hr isosorbide mononitrate 30 mg extended release oral tablet (9 sources) Nitrate Vasodilator Start: 07-23-2023 take 1 tablet by mouth once daily in the morning Isosorbide Mononitrate Active 30 MG PO Daily July 23, 2023 12:00am FreeTextSi tablet in the morning Orally Once a day; Note: Source Status: Start; Refills: 1; Qty: 90 Tablet; Provider: Kee De Los Santos Start: 05-01-2023 take 1 tablet by juan m th in the morning, then take 1 tablet [...] Active oral daily for 0 *Reorder from Qlusters for eRx and Interaction Alerts* May, Not-Taking/PRN Start: 05-09-2022 take 1 tablet by juan m th once daily Levothyroxine 75mcg levothyroxine 75mcg, 1 (one) Tablet daily # 90, 05/09/2022, No Refill. Active oral daily for 0 *Reorder from OnBeepspan for eRx and Interaction Alerts* May, Not-Taking losartan potassium 25 mg oral tablet (12 sources) Angiotensin 2 Receptor Raina Start: 07-23-2023 take 1 tablet by mouth once daily Losartan Active 25 MG PO Daily July 23, 2023 12:00am FreeTextSig: TAKE 1 TABLET BY MOUTH EVERY DAY FOR 30 DAYS; Note: Source Status: Start; Refills: 2; Qty: 30 Tablet; Provider: Kee Brown ( ) Start: 05-08-2023 take 1 tablet by juan m th every twenty-four hours Losartan Potassium 25 MG 1 tablet Orally Once a day for 30 days May, Active Start: 04-12-2023 End: 07-23-2023 take 50 mg by mouth once daily in the morning Losartan Discontinued 50 MG PO Every morning April 12, 2023 12:00am July 23, 2023 9:06am 24 hr metFORMIN hydrochloride 500 mg extended release oral tablet (12 sources) Biguanide Start: 07-24-2023 take 1000 mg by mouth twice daily Metformin Active 1000 MG PO Twice daily July 24, 2023 9:06am Start: 05-20-2023 End: 10-06-2023 take 2 tablets by mouth in the morning metFORMIN (Glucophage) 500 MG tablet Indications: Type 2 diabetes mellitus with hyperglycemia, without long-term current use of insulin ([facility]) Take 2 tablets (1,000 mg) by mouth in the morning and 2 tablets (1,000 mg) in the evening. Take with meals. 360 tablet 1 07/08/2023 10/06/2023 Active Start: 04-10-2023 End: 07-24-2023 take 500 mg by mouth twice daily Metformin Discontinued 500 MG PO Twice daily April 10, 2023 12:00am July 24, 2023 9:07am Start: 04-02-2022 take 1 tablet by juan m th twice daily Metformin 500mg metFORMIN 500mg, 1 (one) Tablet two times daily # 180, 04/02/2022, Ref. x3. Active oral two times daily for 0 *Reorder from Qlusters for eRx and Interaction Alerts* Mar, Active nitroglycerin 0.4 mg sublingual tablet (11 sources) Nitrate Vasodilator Start: 04-12-2023 Nitroglyce rin [...] 10/06/2023 Active spironolactone 25 mg oral tablet (11 sources) Aldosterone Antagonist Start: 04-12-2023 take 25 mg by mouth once daily Spironolactone Active 25 MG PO Daily 30 April 12, 2023 12:00am ticagrelor 90 mg oral tablet (11 sources) Start: 04-12-2023 take 1 tablet by mouth twice daily Ticagrelor (Brilinta) 90 mg Tablet Active 90 MG PO Twice daily April 12, 2023 12:00am tiZANidine 4 mg oral tablet (4 sources) [...] two times daily for 0 Mar, Not-Taking/PRN Problems Active Problems Problem Classification Problem Date Documented Da te Episodic/Chronic Acute myocardial infarction (7 sources) Myocardial infarction; Translations: [Non-ST elevation (NSTEMI) myocardial infarction] Onset: 04-10-2023 04-10-2023 Chronic Anxiety disorders (10 sources) Anxiety state; Translations: [Anxiety state, unspecified] Onset: 11-19-2018 05-09-2023 Chronic Congestive heart failure; nonhypertensive (11 sources) Systolic heart failure; Translations: [Unspecified systolic (congestive) heart failure] Onset: 05-09-2023 05-09-2023 Chronic Coronary atherosclerosis and other heart disease (18 sources) History of non-ST segment elevation myocardial infarction; Translations: [Old myocardial infarction] Onset: 05-09-2023 Chronic Coronary atherosclerosis and other heart disease (5 sources) Patient post percutaneous transluminal coronary angioplasty; Translations: [Coronary angioplasty status] Episodic Diabetes mellitus with complications (11 sources) Type 2 diabetes mellitus with hyperglycemia; Translations: [Hyperglycemia due to type 2 diabetes mellitus] Onset: 01-07-2022 05-09-2023 Chronic Diabetes mellitus without complication (9 sources) Type 2 diabetes mellitus; Translations: [Type 2 diabetes mellitus without complications] Onset: 08-16-2017 04-10-2023 Chronic Diseases of mouth; excluding dental (4 sources) Recurrent aphthous stomatitis; Translations: [Recurrent oral aphthae] Episodic Disorders of lipid metabolism (13 sources) Hyperlipidemia; Translations: [Hyperlipidemia, unspecified] Onset: 10-19-2015 04-10-2023 Chronic Essential hypertension (11 sources) Hypertensive disorder; Translations: [Essential (primary) hypertension] [...] cyst, right side] Episodic Residual codes; unclassified (7 sources) Obstructive sleep apnea syndrome; Translations: [Obstructive sleep apnea (adult) (pediatric)] Onset: 05-08-2023 04-10-2023 Chronic Residual codes; unclassified (2 sources) Obstructive sleep apnea (adult) (pediatric); Translations: [Obstructive sleep apnea (adult)(pediatric)] Onset: 04-10-2023 04-12-2023 Chronic Residual codes; unclassified (5 sources) Harmful pattern of use of nicotine; Translations: [Tobacco use] Onset: 07-11-2023 04-10-2023 Episodic Residual codes; unclassified (4 sources) Tobacco user; Translations: [Tobacco use] Onset: 07-11-2023 07-11-2023 Episodic Spondylosis; intervertebral disc disorders; other back problems (4 sources) Low back pain; Translations: [Lumbar back pain] Onset: 06-06-2023 06-06-2023 Episodic Thyroid disorders (13 sources) Hypothyroidism, unspecified; Translations: [Hypothyroidism] Onset: 01-04-2022 [...] Test Name Value Interpretation Reference Range Facility [facility] echo transthoracicon [facility] echo transthoracic [facility] [place] [address] Echocardiogram Signed Patient: Lorraine Mitchell MR#: [id number] 93 : 1975 Acct:[id number] Age/Sex: 47 / F ADM Date: 07/12/23 Loc: Room: Type: [facility] Attending Dr: Stephanie Sweet MD Ordering Provider: Stephanie Sweet MD Date of Service: 07/12/2302/24/1326 ECH/ECH echo transthoracic: History of non-ST elevation myocardial [...] (): 1.9 m2 CI (): ED Mass (): LAEF (): 73.0 % 2.9 l/min/m2 189.0 grams __ CHARAN (): LAVmax (): LAVmin (): 31.0 mlPat Height (): 113.0 ml 165.0 cm 59.0 ml/m2 __ Pat Weight (): 86.2 kg QLAB Heart Model EDV ()_phl: 187.0 ml EF ()_phl: 42.0 % ED Current ()_phl: 60.0 % ESV ()_phl: 108.0 ml HR ()_phl: 70.0 BPMES Current ()_phl: 30.0 % LV Length ED ()_phl: 92.0 mmSV ()_phl: 79.0 ml ED Default ()_phl: 60.0 % LV Length ES ()_phl: 80.0 mm ES Default ()_phl: 30.0 % Transcribed By: MARICARMENV Performed At: 07/12/23 1334 Signed By: Grace Solorio MD 07/12/23 1521 [facility] ALL LIPID PROFILE (FASTING)o n 07-06-2023 CHOL HDL RATIO 3.8 [facility] Comment on above: 3.3 - 4.4 LOW [...] lead ECGon 04-12-2023 ECG 12 lead ECG [facility] [place] [address] Electrocardiograph Report Signed Patient: Lorraine Mitchell MR#: [id number] 93 : 1975 Acct:[id number] Age/Sex: 47 / F ADM Date: 04/10/23 Loc: Room: [address] [place] [address] Type: DIS IN Attending Dr: Florentino Kenyon [...] By: MUS Signed By Darryl Kee MD 2217 Normal [facility] Glucose Glucometer (BldC) [M ass/Vol]Ordered By: Florentino Kenyon on 04-12-2023 Glucose [Mass/Vol] 226 mg/dL [facility] Comment on above: Random Glucose Refer ence Range is dependent on time and content of last meal. Glucose of more than 200 mg/dL in a nonstressed, ambulatory subject supports the diagnosis of Diabetes Mellitus. Glucose Poct Glucometerson 1 06-12-2022 Glucose [Mass/Vol] 226 mg/dL Normal [facility] Comment on above: Result Comment: [place] Glucose Reference Range is dependent on time and content of last meal. Glucose of more than 200 mg/dL in a nonstressed, ambulatory subject supports the diagnosis of Diabetes Mellitus. PERFORMED BY: [place] [address] PATHOLOGIST ELECTROMECHANISMS DESIGN DRAFTER ELPIDIO DUMONT M.D. Performed By: #### G LULS #### Point of Care testing , Glucose [Mass/Vol] 219 mg/dL Normal [facility] Comment on above: Result Comment: [place] om Glucose Reference Range is dependent on time and content of last meal. Glucose of more than 200 mg/dL in a nonstressed, ambulatory subject supports the diagnosis of Diabetes Mellitus. PERFORMED BY: [place] [address] PATHOLOGIST ELECTROMECHANISMS DESIGN DRAFTER ELPIDIO DUMONT M.D. Performed By: #### H S TROP, CK #### [address] Troponin I High Sensitivityo n 04-12-2023 Troponin I High Sensitivity 3417.1 pg/mL Off scale high 0.0-15.0 [facility] Comment on above: Result Comment: Crit ical Result : Called to and read back by: CLAYTON MCCLOUD at: 04/12/2023 06:08:29 by:[id number] PERFORMED BY: [place] [address] PATHOLOGIST ELECTROMECHANISMS DESIGN DRAFTER ELPIDIO DUMONT M.D. Performed By: #### H S TROP, CK #### [facility] [address] [place] [address] Troponin I.cardiac [Mass/vol ume] in Serum or Plasma by Detection limit <= 0.01 ng/Ordered By: Magali Cortez on 04-12-2023 Troponin I.cardiac DL <= 0.01 ng/mL [Mass/Vol] 3417.1 pg/mL 0.0-15.0 [facility] Comment on above: Critical Result : Ca lled to and read back by: CLAYTON MCCLOUD at: 04/12/2023 06:08:29 by:[email or web address] Activated partial thrombopla stin time (aPTT) in platelet poor plasma by coagulation aOrdered By: Stephanie Sweet on 04-11-2023 aPTT Coag (PPP) [Time] 29.3 s 25.1-36.[address] [facility] Comment on above: A hematocrit value g reater than 55% may lead to inaccurate results in coagulation testing. Patients having hematocrit values >55% require a special collection tube for coagulation studies. Please contact the laboratory at [phone] for redraw instructions. Basophils Auto (Bld) [#/Vol] Ordered By: Stephanie Sweet on 04-11-2023 Basophils (Bld) [#/Vol] 0.0 10*3/uL 0.0-0.2 [facility] Basophils/100 WBC Auto (Bld) Ordered By: Stephanie Sweet on 04-11-2023 Basophils/100 WBC (Bld) 0.5 % . [facility] Blood Urea Nitrogenon 2022 Urea nitrogen [Mass/Vol] 11 mg/dL Normal 7-25 [facility] Comment on above: Performed By: #### C REAT, BUN, CBC, LYTES #### [facility] [address] [place] [id number] [facility] Carbon dioxide, total [Moles /volume] in Serum or PlasmaOrdered By: Stephanie Sweet on 04-11-2023 CO2 [Moles/Vol] 26.7 mmol/L 21.0-31.0 [facility] Chloride [Moles/volume] in S ambika or PlasmaOrdered By: Stephanie Sweet on 04-11-2023 Chloride [Moles/Vol] 101 mmol/L 98-107 [facility] Coagulation Profileon 2022 aPTT Coag (Bld) [Time] 29.3 s Normal 25.1-36.[address] [facility] Comment on above: Result Comment: A he matocrit value greater than 55% may lead to inaccurate results in coagulation testing. Patients having hematocrit values >55% require a special collection tube for coagulation studies. Please contact the laboratory at [phone] for redraw instructions. PERFORMED BY: [address] [place] [id number] PATHOLOGIST ELECTROMECHANISMS DESIGN DRAFTER ELPIDIO DUMONT M.D. Performed By: #### H S TROP, CK #### [place] [id number] [facility] INR Coag (PPP) [Relative time] 1.0 {INR} Normal [facility] Comment on above: Result Comment: INR Therapeutic [...] By: #### H S TROP, CK #### [place] [id number] [facility] PT Coag (PPP) [Time] 12.0 s Normal 9.0-12.9 [facility] Comment on above: Result Comment: A he matocrit value greater than 55% may lead to inaccurate results in coagulation testing. Patients having hematocrit values >55% require a special collection tube for coagulation studies. Please contact the laboratory at [phone] for redraw instructions. Performed By: #### H S TROP, CK #### [address] Complete Blood Count Auto Di ffon 04-11-2023 Basophils (Bld) [#/Vol] 0.0 10*3/uL Normal 0.0-0.2 [facility] Comment on above: Result Comment: PERF ORMED BY: [place] [address] PATHOLOGIST ELECTROMECH[employer]IS[employer] DESIGN DRAFTER ELPIDIO DUMONT M.D. Performed By: #### C REAT, BUN, CBC, LYTES #### [address] Basophils/100 WBC (Bld) 0.5 % Normal . [facility] Comment on above: Performed By: #### C REAT, BUN, CBC, LYTES #### [address] Eosinophils (Bld) [#/Vol] 0.1 10*3/uL Normal 0.0-0.45 [facility] Comment on above: Performed By: #### C REAT, BUN, CBC, LYTES #### [address] Eosinophils/100 WBC (Bld) 0.9 % Normal . [facility] Comment on above: Performed By: #### C REAT, BUN, CBC, LYTES #### [address] Erythrocyte distribution width (RBC) [Ratio] 14.5 % Normal 11.9-15.3 [facility] Comment on above: Performed By: #### C REAT, BUN, CBC, LYTES #### [address] Hematocrit (Bld) [Volume fraction] 35.1 % Normal 34.0-46.4 [facility] Comment on above: Performed By: #### C REAT, BUN, CBC, LYTES #### [place] [id number] [place] Hemoglobin (Bld) [Mass/Vol] 11.8 g/dL Normal 11.8-15.4 [facility] Comment on above: Performed By: #### C REAT, BUN, CBC, LYTES #### [address] Lymphocytes (Bld) [#/Vol] 3.0 10*3/uL Normal 1.00-4.8 [facility] Comment on above: Performed By: #### C REAT, BUN, CBC, LYTES #### [address] Lymphocytes/100 WBC (Bld) 33.4 % Normal . [facility] Comment on above: Performed By: #### C REAT, BUN, CBC, LYTES #### [address] MCH (RBC) [Entitic mass] 30.7 pg Normal 24.7-34.3 [facility] Comment on above: Performed By: #### C REAT, BUN, CBC, LYTES #### [address] MCV (RBC) [Entitic vol] 91.1 fL Normal 80-100 [facility] Comment on above: Performed By: #### C REAT, BUN, CBC, LYTES #### [address] Mean Corpuscular HGB Conc 33.7 g/dL Normal 32.0-35.0 [facility] Comment on above: Performed By: #### C REAT, BUN, CBC, LYTES #### [address] Monocytes (Bld) [#/Vol] 0.5 10*3/uL Normal 0.0-0.8 [facility] Comment on above: Performed By: #### C REAT, BUN, CBC, LYTES #### [address] Monocytes/100 WBC (Bld) 5.8 % Normal . [facility] Comment on above: Performed By: #### C REAT, BUN, CBC, LYTES #### [address] Neutrophils (Bld) [#/Vol] 5.3 10*3/uL Normal 1.8-7.7 [facility] Comment on above: Performed By: #### C REAT, BUN, CBC, LYTES #### [address] Neutrophils/100 WBC (Bld) 59.4 % Normal . [facility] Comment on above: Performed By: #### C REAT, BUN, CBC, LYTES #### [address] NRBC% 0.1 /100{WBC} Normal 0-0.5 [facility] Comment on above: Performed By: #### C REAT, BUN, CBC, LYTES #### [address] Platelet mean volume (Bld) [Entitic vol] 9.4 fL Normal 6.3-10.7 [facility] Comment on above: Performed By: #### C REAT, BUN, CBC, LYTES #### [address] Platelets (Bld) [#/Vol] 213 10*3/uL Normal 150-450 [facility] Comment on above: Performed By: #### C REAT, BUN, CBC, LYTES #### [address] RBC (Bld) [#/Vol] 3.85 10*6/uL Normal 3.60-5.00 [facility] Comment on above: Performed By: #### C REAT, BUN, CBC, LYTES #### [address] WBC (Bld) [#/Vol] 9.0 10*3/uL Normal 3.8-11.6 [facility] Comment on above: Performed By: #### C REAT, BUN, CBC, LYTES #### [facility] [address] [place] [id number] [place] Creatine Kinaseon 04-11-2023 CK [Catalytic activity/Vol] 186 U/L Normal [facility] Comment on above: Performed By: #### H S TROP, CK #### [facility] [address] [place] [id number] [place] CK [Catalytic activity/Vol] 242 U/L High [facility] Comment on above: Performed By: #### H S TROP, CK #### [facility] [address] [place] [address] [place] Creatine kinase [Enzymatic a ctivity/volume] in Serum or PlasmaOrdered By: Florentino Kenyon on 04-11-2023 CK [Catalytic activity/Vol] 186 U/L [facility] Creatinineon 04-11-2023 Creatinine [Mass/Vol] 0.47 mg/dL Low 0.60-1.20 [facility] Comment on above: Performed By: #### H S TROP, CK #### [facility] [address] [place] [address] [place] Creatinine Clr Calc Pharmacy 166.11 [facility] Comment on above: Result Comment: PERF ORMED BY: [place] [address] PATHOLOGIST ELECTROMECH[employer]ISMS DES[employer] DRAFTER ELPIDIO DUMONT M.D. Performed By: #### H S TROP, CK #### [facility] [address] [place] [address] [place] GFR/1.73 sq M.predicted MDRD (S/P/Bld) [Vol rate/Area] mL/min/{1.73_m2} [facility] Comment on above: Performed By: #### H S TROP, CK #### [facility] [address] [place] [address] [place] Creatinine [Mass/volume] in Serum or PlasmaOrdered By: Stephanie Sweet on 04-11-2023 Creatinine [Mass/Vol] 0.47 mg/dL 0.60-1.20 [facility] ECG 12 lead ECGon 04-11-2023 ECG 12 lead ECG [facility] Main [place] [address] [place] [address] Electrocardiograph Report Signed Patient: Lorraine Mitchell MR#: [id number] 93 : 1975 Acct:[id number] Age/Sex: 47 / F ADM Date: 04/10/23 Loc: Room: [address] [place] [address] Type: DIS IN Attending Dr: Florentino Kenyon [...] Signed By Darryl Kee MD 2049 Normal [facility] Electrolyteson 04-11-2023 Anion gap [Moles/Vol] 12.1 mmol/L Normal 6.0-15.[address] [facility] Comment on above: Performed By: #### C REAT, BUN, CBC, LYTES #### [facility] [address] [place] [id number] [place] Chloride [Moles/Vol] 101 mmol/L Normal 98-107 [facility] Comment on above: Performed By: #### C REAT, BUN, CBC, LYTES #### [facility] [address] [place] [address] [place] CO2 [Moles/Vol] 26.7 mmol/L Normal 21.0-31.0 [facility] Comment on above: Performed By: #### C REAT, BUN, CBC, LYTES #### [facility] [address] [place] [address] [place] Potassium [Moles/Vol] 3.8 mmol/L Normal 3.5-5.1 [facility] Comment on above: Performed By: #### C REAT, BUN, CBC, LYTES #### [facility] [address] [place] [address] [place] Sodium [Moles/Vol] 136 mmol/L Normal 136-145 [facility] Comment on above: Performed By: #### C REAT, BUN, CBC, LYTES #### [facility] [address] [place] [address] [place] Eosinophils Auto (Bld) [#/Vo l]Ordered By: Stephanie Sweet on 04-11-2023 Eosinophils (Bld) [#/Vol] 0.1 10*3/uL 0.0-0.45 [facility] Eosinophils/100 WBC Auto (Bl d)Ordered By: Stephanie Sweet on 04-11-2023 Eosinophils/100 WBC (Bld) 0.9 % . [facility] Erythrocyte distribution wid th Auto (RBC) [Ratio]Ordered By: Stephanie Sweet on 04-11-2023 Erythrocyte distribution width (RBC) [Ratio] 14.5 % 11.9-15.3 [facility] Glucose Poct Glucometerson 1 06-11-2022 Glucose [Mass/Vol] 200 mg/dL Normal [facility] Comment on above: Result Comment: [facility] Glucose Reference Range is dependent on time and content of last meal. Glucose of more than 200 mg/dL in a nonstressed, ambulatory subject supports the diagnosis of Diabetes Mellitus. PERFORMED BY: [facility] [address] [place] [address] PATHOLOGIST ELECTROMECHANISMS DESIGN DRAFTER ELPIDIO DUMONT M.D. Performed By: #### G LULS #### Point of Care testing , Commemt1 Glu2: Cleaned Meter Normal [facility] Comment on above: Result Comment: PERF ORMED BY: [facility] [address] [place] [address] PATHOLOGIST ELECTROMECH[employer]IS[employer] DESIGN DRAFTER ELPIDIO DUMONT M.D. Performed By: #### G LULS #### Point of Care testing , Glucose [Mass/Vol] 221 mg/dL Normal [facility] Comment on above: Result Comment: [place] om Glucose Reference Range is dependent on time and content of last meal. Glucose of more than 200 mg/dL in a nonstressed, ambulatory subject supports the diagnosis of Diabetes Mellitus. Performed By: #### G LULS #### Point of Care testing , Glucose [Mass/Vol] 204 mg/dL Normal [facility] Comment on above: Result Comment: [place] om Glucose Reference Range is dependent on time and content of last meal. Glucose of more than 200 mg/dL in a nonstressed, ambulatory subject supports the diagnosis of Diabetes Mellitus. PERFORMED BY: [facility] [address] [place] [id number] PATHOLOGIST ELECTROMECHANISMS DESIGN DRAFTER ELPIDIO DUMONT M.D. Performed By: #### G LULS #### Point of Care testing , Hematocrit Auto (Bld) [Volum e fraction]Ordered By: Stephanie Sweet on 04-11-2023 Hematocrit (Bld) [Volume fraction] 35.1 % 34.0-46.4 [facility] Hemoglobin [Mass/volume] in BloodOrdered By: Stephanie Sweet on 04-11-2023 Hemoglobin (Bld) [Mass/Vol] 11.8 g/dL 11.8-15.4 [facility] INR in Platelet poor plasma by Coagulation assayOrdered By: Stephanie Sweet on 04-11-2023 INR Coag (PPP) [Relative time] 1.0 {INR} [facility] Comment on above: INR Therapeutic Rang e [...] RBC Auto (Bld) [#/Vol] 9.0 10*3/uL 3.8-11.6 [facility] Lymphocytes Auto (Bld) [#/Vo l]Ordered By: Stephanie Sweet on 04-11-2023 Lymphocytes (Bld) [#/Vol] 3.0 10*3/uL 1.00-4.8 [facility] Lymphocytes/100 WBC Auto (Bl d)Ordered By: Stephanie Sweet on 04-11-2023 Lymphocytes/100 WBC (Bld) 33.4 % . [facility] MCH Auto (RBC) [Entitic mass ]Ordered By: Stephanie Sweet on 04-11-2023 MCH (RBC) [Entitic mass] 30.7 pg 24.7-34.3 [facility] MCHC Auto (RBC) [Mass/Vol]Or dered By: Stephanie Sweet on 04-11-2023 MCHC (RBC) [Mass/Vol] 33.7 g/dL 32.0-35.0 [facility] MCV Auto (RBC) [Entitic vol] Ordered By: Stephanie Sweet on 04-11-2023 MCV (RBC) [Entitic vol] 91.1 fL 80-100 [facility] Monocytes Auto (Bld) [#/Vol] Ordered By: Stephanie Sweet on 04-11-2023 Monocytes (Bld) [#/Vol] 0.5 10*3/uL 0.0-0.8 [facility] Monocytes/100 WBC Auto (Bld) Ordered By: Stephanie Sweet on 04-11-2023 Monocytes/100 WBC (Bld) 5.8 % . [facility] Neutrophils Auto (Bld) [#/Vo l]Ordered By: Stephanie Sweet on 04-11-2023 Neutrophils (Bld) [#/Vol] 5.3 10*3/uL 1.8-7.7 [facility] Neutrophils/100 WBC Auto (Bl d)Ordered By: Stephanie Sweet on 04-11-2023 Neutrophils/100 WBC (Bld) 59.4 % . [facility] No Panel InformationOrdered By: Florentino Kenyon on 04-11-2023 Bedside Glucose Comment Glu2: cleaned meter [facility] No Panel InformationOrdered By: Stephanie Sweet on 04-11-2023 Estimated GFR (CKD-EPI) > 60.0 mL/Min [facility] Creatinine Clearance (Chem 166.11 [facility] Nucleated erythrocytes [Pres ence] in Blood by Automated countOrdered By: Stephanie Sweet on 04-11-2023 Nucleated RBC Auto Ql (Bld) 0.1 /100{WBC} 0-0.5 [facility] Partial Thromboplastin Timeo n 04-11-2023 aPTT Coag (Bld) [Time] 29.2 s Normal 25.1-36.[address] [facility] Comment on above: Result Comment: A he matocrit value greater than 55% may lead to inaccurate results in coagulation testing. Patients having hematocrit values >55% require a special collection tube for coagulation studies. Please contact the laboratory at [phone] for redraw instructions. PERFORMED BY: [place] [address] PATHOLOGIST ELECTROMECHANISMS DESIGN DRAFTER ELPIDIO DUMONT M.D. Performed By: #### H S TROP, CK #### [address] Platelet mean volume Auto (B ld) [Entitic vol]Ordered By: Stephanie Sweet on 04-11-2023 Platelet mean volume (Bld) [Entitic vol] 9.4 fL 6.3-10.7 [facility] Platelets Auto (Bld) [#/Vol] Ordered By: Stephanie Sweet on 04-11-2023 Platelets (Bld) [#/Vol] 213 10*3/uL 150-450 [facility] Potassium [Moles/volume] in Serum or PlasmaOrdered By: Stephanie Sweet on 04-11-2023 Potassium [Moles/Vol] 3.8 mmol/L 3.5-5.1 [facility] Prothrombin time (PT)Ordered By: Stephanie Sweet on 04-11-2023 PT Coag (PPP) [Time] 12.0 s 9.0-12.9 [facility] Comment on above: A hematocrit value g reater than 55% may lead to inaccurate results in coagulation testing. Patients having hematocrit values >55% require a special collection tube for coagulation studies. Please contact the laboratory at [phone] for redraw instructions. RBC Auto (Bld) [#/Vol]Ordere d By: Stephanie Sweet on 04-11-2023 RBC (Bld) [#/Vol] 3.85 10*6/uL 3.60-5.00 [facility] Serum or plasma anion gap de terminationOrdered By: Stephanie Sweet on 04-11-2023 Anion gap [Moles/Vol] 12.1 mmol/L 6.0-15.[address] [facility] Sodium [Moles/volume] in Ser um or PlasmaOrdered By: Stephanie Sweet on 04-11-2023 Sodium [Moles/Vol] 136 mmol/L 136-145 [facility] Troponin I High Sensitivityo n 04-11-2023 Troponin I High Sensitivity 2287.4 pg/mL Off scale high 0.0-15.0 [facility] Comment on above: Result Comment: Crit ical Result : Called to and read back by: LILLY GRAY at: 04/11/2023 12:03:27 by:LISS PERFORMED BY: [place] [address] PATHOLOGIST ELECTROMECHANISMS DESIGN DRAFTER ELPIDIO DUMONT M.D. Performed By: #### H S TROP, CK #### [facility] [address] [place] [address] Troponin I High Sensitivity 2115.2 pg/mL Off scale high 0.0-15.0 [facility] Comment on above: Result Comment: Crit ical Result : Called to and read back by: CLAYTON REDMAN at: 04/11/2023 00:13:42 by:AUGUSTO PERFORMED BY: [place] [address] PATHOLOGIST ELECTROMECHANISMS DESIGN DRAFTER ELPIDIO DUMONT M.D. Performed By: #### H S TROP, CK #### [facility] [address] [place] [address] Urea nitrogen [Mass/volume] in Serum or PlasmaOrdered By: Stephaniemakayla Sweet on 04-11-2023 Urea nitrogen [Mass/Vol] 11 mg/dL 7-25 [facility] WBC Auto (Bld) [#/Vol]Ordere d By: Stephaniemakayla Sweet on 04-11-2023 WBC (Bld) [#/Vol] 9.0 10*3/uL 3.8-11.6 [facility] Complete Blood Count Auto Di ffon 04-10-2023 Basophils (Bld) [#/Vol] 0.1 10*3/uL Normal 0.0-0.2 [facility] Comment on above: Result Comment: PERF ORMED BY: [place] [address] PATHOLOGIST ELECTROMECHANISMS DESIGN DRAFTER ELPIDIO DUMONT M.D. Performed By: #### H S TROP, CK #### [address] Basophils/100 WBC (Bld) 1.4 % Normal . [facility] Comment on above: Performed By: #### H S TROP, CK #### [place] [address] [place] Eosinophils (Bld) [#/Vol] 0.1 10*3/uL Normal 0.0-0.45 [facility] Comment on above: Performed By: #### H S TROP, CK #### [place] [address] [place] Eosinophils/100 WBC (Bld) 1.2 % Normal . [facility] Comment on above: Performed By: #### H S TROP, CK #### [address] Erythrocyte distribution width (RBC) [Ratio] 14.1 % Normal 11.9-15.3 [facility] Comment on above: Performed By: #### H S TROP, CK #### [address] Hematocrit (Bld) [Volume fraction] 36.0 % Normal 34.0-46.4 [facility] Comment on above: Performed By: #### H S TROP, CK #### [facility] [address] Hemoglobin (Bld) [Mass/Vol] 12.2 g/dL Normal 11.8-15.4 [facility] Comment on above: Performed By: #### H S TROP, CK #### [facility] [address] Lymphocytes (Bld) [#/Vol] 3.2 10*3/uL Normal 1.00-4.8 [facility] Comment on above: Performed By: #### H S TROP, CK #### [facility] [address] Lymphocytes/100 WBC (Bld) 36.2 % Normal . [facility] Comment on above: Performed By: #### H S TROP, CK #### [facility] [address] MCH (RBC) [Entitic mass] 30.7 pg Normal 24.7-34.3 [facility] Comment on above: Performed By: #### H S TROP, CK #### [facility] [address] MCV (RBC) [Entitic vol] 90.9 fL Normal 80-100 [facility] Comment on above: Performed By: #### H S TROP, CK #### [facility] [address] Mean Corpuscular HGB Conc 33.8 g/dL Normal 32.0-35.0 [facility] Comment on above: Performed By: #### H S TROP, CK #### [facility] [address] Monocytes (Bld) [#/Vol] 0.4 10*3/uL Normal 0.0-0.8 [facility] Comment on above: Performed By: #### H S TROP, CK #### [facility] [address] Monocytes/100 WBC (Bld) 4.6 % Normal . [facility] Comment on above: Performed By: #### H S TROP, CK #### [facility] [address] [place] [address] [place] Neutrophils (Bld) [#/Vol] 5.0 10*3/uL Normal 1.8-7.7 [facility] Comment on above: Performed By: #### H S TROP, CK #### [facility] [address] [place] [address] [place] Neutrophils/100 WBC (Bld) 56.6 % Normal . [facility] Comment on above: Performed By: #### H S TROP, CK #### [facility] [address] NRBC% 0.1 /100{WBC} Normal 0-0.5 [facility] Comment on above: Performed By: #### H S TROP, CK #### [facility] [address] Platelet mean volume (Bld) [Entitic vol] 9.3 fL Normal 6.3-10.7 [facility] Comment on above: Performed By: #### H S TROP, CK #### [facility] [address] [place] [address] [place] Platelets (Bld) [#/Vol] 213 10*3/uL Normal 150-450 [facility] Comment on above: Performed By: #### H S TROP, CK #### [facility] [address] [place] [address] [place] RBC (Bld) [#/Vol] 3.96 10*6/uL Normal 3.60-5.00 [facility] Comment on above: Performed By: #### H S TROP, CK #### [facility] [address] [place] [address] [place] WBC (Bld) [#/Vol] 8.9 10*3/uL Normal 3.8-11.6 [facility] Comment on above: Performed By: #### H S TROP, CK #### [facility] [address] [place] [address] [place] Creatine Kinaseon 04-10-2023 CK [Catalytic activity/Vol] 268 U/L High 30-223 [facility] Comment on above: Performed By: #### G LULS #### Point of Care testing , CK [Catalytic activity/Vol] 238 U/L High 30-223 [facility] Comment on above: Performed By: #### H S TROP, CK #### [facility] [address] [place] [id number] [facility] CK [Catalytic activity/Vol] 210 U/L Normal 30-223 [facility] Comment on above: Performed By: #### H S TROP, CK #### [facility] [address] [place] [id number] [facility] ECG 12 lead ECGon 04-10-2023 ECG 12 lead ECG [facility] Main [place] [address] [place] [address] Electrocardiograph Report Signed Patient: Lorraine Mitchell MR#: [id number] 93 : 1975 Acct:[id number] Age/Sex: 47 / F ADM Date: 04/10/23 Loc: Room: [address] [place] [address] Type: ADM IN Attending Dr: Florentino Kenyon [...] (247) on 04/11/2023 3:52:37 PM Referred By: [facility] Electronically Signed By:DARRYL KEE MD Transcribed By: MUS Signed By Darryl Kee MD [id number] [facility] ECH echo transthoracicon [facility] echo transthoracic [facility] Main [place] [address] [place] [address] Echocardiogram Signed Patient: Lorraine Mitchell MR#: [id number] 93 : 1975 Acct:[id number] Age/Sex: 47 / F ADM Date: 04/10/23 Loc: Room: [address] [place] [address] Type: ADM IN Attending Dr: Florentino Kenyon MD Ordering Provider: Florentino Kenyon MD Date of Service: 04/10/2301/23/1057 [facility] echo transthoracic: NSTMI Copies to: MD Grace [...] By: Grace Solorio MD 04/10/23 1309 Normal [facility] Glucose Poct Glucometerson 1 06-10-2022 Glucose [Mass/Vol] 201 mg/dL Normal [facility] Comment on above: Result Comment: [facility] Glucose Reference Range is dependent on time and content of last meal. Glucose of more than 200 mg/dL in a nonstressed, ambulatory subject supports the diagnosis of Diabetes Mellitus. PERFORMED BY: [place] [address] PATHOLOGIST ELECTROMECHANISMS DESIGN DRAFTER ELPIDIO DUMONT M.D. Performed By: #### G LULS #### Point of Care testing , Glucose [Mass/Vol] 214 mg/dL Normal [facility] Comment on above: Result Comment: [facility] Glucose Reference Range is dependent on time and content of last meal. Glucose of more than 200 mg/dL in a nonstressed, ambulatory subject supports the diagnosis of Diabetes Mellitus. PERFORMED BY: [place] [address] PATHOLOGIST ELECTROMECHANISMS DESIGN DRAFTER ELPIDIO DUMONT M.D. Performed By: #### H S TROP, CK #### [address] Glucose [Mass/Vol] 196 mg/dL Normal [facility] Comment on above: Result Comment: [place] Glucose Reference Range is dependent on time and content of last meal. Glucose of more than 200 mg/dL in a nonstressed, ambulatory subject supports the diagnosis of Diabetes Mellitus. PERFORMED BY: [place] [address] PATHOLOGIST ELECTROMECHANISMS DESIGN DRAFTER ELPIDIO DUMONT M.D. Performed By: #### H S TROP, CK #### [place] [address] [place] Partial Thromboplastin Timeo n 04-10-2023 aPTT Coag (Bld) [Time] 26.1 s Normal 25.1-36.[address] [facility] Comment on above: Result Comment: A he matocrit value greater than 55% may lead to inaccurate results in coagulation testing. Patients having hematocrit values >55% require a special collection tube for coagulation studies. Please contact the laboratory at [phone] for redraw instructions. PERFORMED BY: [place] [address] PATHOLOGIST ELECTROMECHANISMS DESIGN DRAFTER ELPIDIO DUMONT M.D. Performed By: #### G LULS #### Point of Care testing , Prothrombin Time INRon 04-10 INR Coag (PPP) [Relative time] 1.0 {INR} Normal [facility] Comment on above: Result Comment: INR Therapeutic [...] Coag (PPP) [Time] 12.1 s Normal 9.0-12.9 [facility] Comment on above: Result Comment: A he matocrit value greater than 55% may lead to inaccurate results in coagulation testing. Patients having hematocrit values >55% require a special collection tube for coagulation studies. Please contact the laboratory at [phone] for redraw instructions. Performed By: #### G LULS #### Point of Care testing , Troponin I High Sensitivityo n 04-10-2023 Troponin I High Sensitivity 1613.1 pg/mL Off scale high 0.0-15.0 [facility] Comment on above: Result Comment: Crit ical Result : Called to and read back by: TRE NASH at: 04/10/2023 18:42:30 by:DC PERFORMED BY: [place] [address] PATHOLOGIST ELECTROMECHANISMS DESIGN DRAFTER ELPIDIO DUMONT M.D. Performed By: #### G LULS #### Point of Care testing , Troponin I High Sensitivity 1083.2 pg/mL Off scale high 0.0-15.0 [facility] Comment on above: Result Comment: Crit ical Result : Called to and read back by: TRE NASH at: 04/10/2023 16:30:31 by:DC PERFORMED BY: [place] [address] PATHOLOGIST ELECTROMECHANISMS DESIGN DRAFTER ELPIDIO DUMONT M.D. Performed By: #### H S TROP, CK #### [address] Troponin I High Sensitivity 899.4 pg/mL Off scale high 0.0-15.0 [facility] Comment on above: Result Comment: PERF ORMED BY: [place] [address] PATHOLOGIST ELECTROMECHANISMS DESIGN DRAFTER ELPIDIO DUMONT M.D. Performed By: #### H S TROP, CK #### [facility] [address] [place] [address] XR chest 2V*on 04-10-2023 XR chest 2V* [facility] [place] [address] XRay Report Signed Patient: Lorraine Mitchell MR#: [id number] 93 : 1975 Acct:[id number] Age/Sex: 47 / F ADM Date: 04/10/23 Loc: Room: [address] [place] [address] Type: ADM IN Attending Dr: Florentino Kenyon [...] Ralf Kelly M.D.04/10/2023 3:17 PM Dictation Location: [place] [address] Transcribed By: [facility] 04/10/23 151 Dictated By: Ralf Kelly II, MD 04/10/23 151 Signed By: 04/10/23 151 [facility] FREE T4on 01-04-2022 Free T4 [Mass/Vol] 0.91 ng/dL Normal 0.76-1.46 [facility] Comment on above: Performed By: #### F T4 #### [facility] [address] [place] [address] Dr. Jane Alexis LAB TESTINGon 01-04-2022 RECV HEADER SEE SCANNED REPORT IN [facility] Comment on above: Performed By: #### M ISC #### [facility] [address] [place] [address] Dr. Jane Alexis REV FROM REF LAB 01/05/22 [facility] Comment on above: Performed By: #### M ISC #### [facility] [address] [place] [address] Dr. Jane Alexis SENT TO REF LAB 01/04/22 [facility] Comment on above: Performed By: #### M ISC #### [facility] [address] [place] [address] [address] Jane Alexis TSHon 01-04-2022 TSH 2.294 uIU/mL Normal 0.358-3.740 [facility] Comment on above: Performed By: #### T SH #### [facility] [address] [place] [address] [address] Jane Alexis Physician Referralon 021 Physician Referral [id number]:[id number] Normal [facility] Vital Signs Date Time Vital Sign Value Performing Clinician Facility 07-24-2023 09:16-0500 Body height 165.1 cm MD Shilpa Lewis Work Phone: [facility] 07-24-2023 09:16-0500 Body mass index (BMI) [Ratio] 31.8 kg/m2 MD Shilpa Lewis Work Phone: [facility] 07-24-2023 09:16-0500 Body weight 86.63 kg MD Shilpa Lewis Work Phone: [facility] 07-24-2023 09:16-0500 Diastolic blood pressure 82 mm[Hg] MD Shilpa Lewis Work Phone: [facility] 07-24-2023 09:16-0500 Heart rate 80 /min MD Shilpa Lewis Work Phone: [facility] 07-24-2023 09:16-0500 Respiratory rate 18 /min MD Shilpa Lewis Work Phone: [facility] 07-24-2023 09:16-0500 SaO2% (BldA) [Mass fraction] 97 % MD Shilpa Lewis Work Phone: [facility] 07-24-2023 09:16-0500 Systolic blood pressure 126 mm[Hg] MD Shilpa Lewis Work Phone: [facility] 07-11-2023 15:46-0500 Body height 165.1 cm Nelida Aichholz [employer] Work Phone: [facility] 07-11-2023 15:46-0500 Body mass index (BMI) [Ratio] 31.68 kg/m2 Nelidamakayla Haydenholz [employer] Work Phone: [facility] 07-11-2023 15:46-0500 Body temperature 97.39 [degF] Nelida Jackelynholz [employer] Work Phone: [facility] 07-11-2023 15:46-0500 Body weight 86.36 kg Nelida Jackelynholz [employer] Work Phone: [facility] 07-11-2023 15:46-0500 Diastolic blood pressure 78 mm[Hg] Nelida Jackelynholz [employer] Work Phone: [facility] 07-11-2023 15:46-0500 Heart rate 96 /min Nelida Jackelynholz [employer] Work Phone: [facility] 07-11-2023 15:46-0500 Respiratory rate 18 /min Nelida Jackelynholz [employer] Work Phone: [facility] 07-11-2023 15:46-0500 SaO2% (BldA) [Mass fraction] 97 % Nelida Jackelynholz [employer] Work Phone: [facility] 07-11-2023 15:46-0500 Systolic blood pressure 118 mm[Hg] Nelidamakayla Haydenholz [employer] Work Phone: [facility] 05-01-2023 11:40-0500 Body height 165.1 cm Stephanie Kee Other [facility] 05-01-2023 11:40-0500 Body mass index (BMI) [Ratio] 31.95 kg/m2 Stephanie Kee Other [employer] Other 05-01-2023 11:40-0500 Body weight 87.09 kg Stephanie Kee Other [employer] Other 05-01-2023 11:40-0500 Body weight 87.08 kg MD Shilpa Lewis Work Phone: [facility] 05-01-2023 11:40-0500 Diastolic blood pressure 82 mm[Hg] Stephanie Kee Other [facility] 05-01-2023 11:40-0500 Respiratory rate 20 /min Stephanie Trammelloroge Other [facility] [employer] Other 05-01-2023 11:40-0500 SaO2% (BldA) [Mass fraction] 96 % Stephanie Trammelloroge Other [facility] [employer] Other 05-01-2023 11:40-0500 Systolic blood pressure 136 mm[Hg] Stephanie Kee Other [facility] 04-12-2023 11:44-0500 Body temperature 98.7 [degF] MD Shilpa Lewis Work Phone: [facility] 04-12-2023 11:44-0500 Diastolic blood pressure 69 mm[Hg] MD Shilpa Lewis Work Phone: [facility] 04-12-2023 11:44-0500 Heart rate 82 /min MD Shilpa Lewis Work Phone: [facility] 04-12-2023 11:44-0500 Respiratory rate 18 /min MD Shilpa Lewis Work Phone: [facility] 04-12-2023 11:44-0500 SaO2% (BldA) [Mass fraction] 95 % MD Shilpa Lewis Work Phone: [facility] 04-12-2023 11:44-0500 Systolic blood pressure 113 mm[Hg] MD Shilpa Lewis Work Phone: [facility] 04-12-2023 06:00-0500 Body weight 88.7 kg MD Shilpa Lewis Work Phone: [facility] 04-12-2023 04:33-0500 Inhaled oxygen concentration 21 % MD Shilpa Lewis Work Phone: [facility] 04-10-2023 10:18-0500 Body height 165.1 cm MD Shilpa Lewis Work Phone: [facility] Encounters Encounter Date Encounter Type Care Provider Facility Start: 07-24-2023 End: 07-24-2023 ambulatory MD Shilpa Lewis Work Phone: [facility] Work Phone: Start: 07-24-2023 End: 07-24-2023 Patient encounter procedure MD Shilpa Lewis Work Phone: [facility] Work Phone: Start: 07-12-2023 End: 07-12-2023 ambulatory Stephanie Sweet Facility:[facility] Start: 07-12-2023 End: 07-12-2023 ambulatory MD Shilpa Lewis Work Phone: [facility] Work Phone: Start: 07-12-2023 End: 07-12-2023 Patient encounter procedure MD Shilpa Lewis Work Phone: [facility] Work Phone: Start: 07-11-2023 End: 07-11-2023 ambulatory NELIDA AMBROSIO Not Available Start: 07-11-2023 End: 07-11-2023 Office outpatient visit 25 minutes Nelida Ambrosio [employer] Work Phone: [facility] Comment on above: Type 2 diabetes gerald itus with hyperglycemia, without long-term current use of insulin (CMS/HCC) (Primary Dx); Obesity with body mass index (BMI) of 30.0 to 39.9; Tobacco user; Essential (primary) hypertension (CMS/HCC); Acute heart failure, unspecified heart failure type (CMS/HCC); Anxiety Start: 07-11-2023 Bamboo flowsheet Nelida Ambrosio [employer] Work Phone: [facility] Start: 07-11-2023 Bamboo flowsheet Nelida Ambrosio [employer] Work Phone: [facility] Start: 07-06-2023 Clinisync Result Encounter Nelida Ambrosio [employer] Work Phone: [facility] External Department Unsolicited Start: 07-06-2023 Clinisync Result Encounter Nelida Ambrosio [employer] Work Phone: [facility] External [facility] Unsolicited Start: 06-11-2023 End: 06-11-2023 ambulatory Stephanie Sweet Other [employer] Other Start: 06-11-2023 Telephone encounter Stephanie LUBIN G Manager Welding Start: 06-10-2023 End: 06-10-2023 ambulatory Stephanie Sweet Other [employer] Other Start: 06-10-2023 Telephone encounter Stephanie LUBIN G Cardiology Start: 05-20-2023 End: 05-20-2023 ambulatory NELIDA HAYDENLULYNacho Not Available Start: 05-08-2023 End: 05-08-2023 ambulatory Stephanie Sweet Other [employer] Other Start: 05-08-2023 Telephone encounter Stephanie LUBIN G Cardiology Start: 05-01-2023 End: 05-01-2023 ambulatory Stephanie Sweet Other [employer] Other Start: 05-01-2023 Office outpatient vi sit 25 minutes Stephanie Sweet [facility] Start: 05-01-2023 End: 05-01-2023 Patient encounter procedure MD Shilpa Lewis Work Phone: [facility] Work Phone: Start: 04-10-2023 End: 04-12-2023 Evaluation and management of [facility] Facility:[facility] Start: 04-10-2023 End: 04-12-2023 Evaluation and management of inpatient MD Shilpa Lewis Work Phone: [facility] [employer] Work Phone: Start: 01-04-2022 End: 01-05-[address] SHILPA [facility] Facility:H1 Procedures Date Procedure Procedure Detail Performing Clinician Start: 07-06-2023 ALL LIPID PROFILE (FASTING) Nelida Jackelynholnacho FISH ROE PROCESSOR Work Phone: Start: 07-06-2023 [facility] ALT Nelida Shon lindsay FISH ROE PROCESSOR Work Phone: Start: 07-06-2023 [facility] AST Nelida Shon lindsay FISH ROE PROCESSOR Work Phone: Start: 04-11-2023 MD Shilpa Lewis [...] Phone: Start: 09-19-2020 Mammography Nelida Shon lindsay FISH ROE PROCESSOR Work Phone: Start: 10-12-2015 General examination of patient Stephanie Sweet Other Viral screening Stephanie cullen Other Plan of Treatment Date Care Activity Detail Author Start: 09-27-2025 [facility] Start: 09-09-2023 End: 09-09-2023 Patient encounter procedure 09/09/2023 3:40 PM EDT Office Visit [facility] [address] [place] [phone] Nelida Ambrosio, FISH ROE PROCESSOR [address] [place] [phone] [facility] Start: 08-02-2023 Hemoglobin A1c measurement Diabetes: Hemoglobin A1C [facility] Start: 08-02-2023 Screening for malign ant neoplasm of breast Mammogram [facility] Comment on above: Postponed from 09/19 (Other Medical Reasons) Start: 07-11-2023 End: 07-11-2023 Patient encounter procedure 07/11/2023 3:40 PM EST Office Visit [facility] [address] [place] [address] Nelida Ambrosio, DANICA [address] [place] [phone] [facility] Start: 04-12-2023 [facility] Start: 04-10-[address] [facility] Start: 04-10-2023 Sleep disorder assessment [facility] Start: 02-01-2023 Influenza vaccination Influenza Vacc ine [...] artery disease in women Drug Eluting Stents [facility] Work Phone: Patient referral [facility] Work Phone: Payers Date Payer Category Payer Private Health Insurance [facility] [id number] 2023 Self-pay [id number] 2019 Private Health Insurance JULISSA FITZGERALD [id number] 2019-Present [address] [place] [id number] [id number] 1975 Unknown [id number] 1975 Unknown [id number] 1975 Unknown [id number] 1960 Private Health Insurance [facility] [id number] Unknown [id number] Unknown [id number] Social History Date Type Detail Facility Start: 04-11-2023 End: 07-24-2023 Tobacco smoking status WAIS Smoker (finding) [facility] Start: 1975 Sex Assigned At Female F [facility] Start: 05-20-2023 End: 07-11-2023 Sex Assigned At [facility] Start: 05-20-2023 Tobacco smoking stat [place] Smokes tobacco daily [facility] History of [...] got money to buy more. Never true [facility] Start: 05-20-2023 Alcohol Comment Pepsi:2 cups daily [facility] Start: 1975 Sex Assigned At Not on file N [facility] Medical Equipment Procedure Code Equipment Code Equipment Origin al Text Equipment Identifier Dates CL STENT GARTH FRONTIER 3.5 X 15 FDA Start: 04-11-2023 USE 1 A DAY [id number] Start: 04-17-2023 USE 1 DAILY [id number] Start: 04-17-2023 CL STENT GARTH FRONTIER 3.5 X 15 FDA Start: 04-11-2023 CL STENT GARTH FRONTIER 3.5 X 15 FDA Start: 04-11-2023 Goals Date Patient Goal Desired Activity /State Functional Status Date Assessment Result Facility 04-12-2023 Functional status Patient at Baseline [facility] Work Phone: Mental Status Date Assessment Result Facility 04-12-2023 Cognitive function Cognitive Sta tus Patient at Baseline [facility] Work Phone: Clinical Notes 04-10-2023 to 07-11-2023 Nelida Ambrosio NP - 07/11/2023 4:43 PM Cleve Ambrosio NP - 07/11/2023 4:41 PM Cleve Ambrosio NP - 07/11/2023 4:39 PM ZANE SARABIA - 07/11/2023 3:40 PM EST Note Date & Type Note Facility 07-11-2023 History of Presen t illness Narrative Associated Problem(s): Acute heart failure (CMS/HCC) Continue with cardiology Has echo tomorrow Associated Problem(s): Anxiety Doing ok on sertraline, we will increase buspirone to 7.5mg BID Fu in 2 months Associated Problem(s): Type 2 diabetes mellitus with hyperglycemia, without long-term current use of insulin ([facility]) Will add farxiga 5mg daily, pt reports she just called cardiology they stated that would be fine to start #3 boxes for Farxiga 10mg given instructions are 1/2 pill daily, lot # [id number] Echo tomorrow Engine Lathe Set Up Operator on 07/24 Sleep study 07/22 Pt asking [...] no compliance problems. Hypertensive end-organ damage includes CAD/OK, heart failure and left ventricular hypertrophy. 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 ([facility]) 05/09/2023 COVID-19 viremia Depression ([facility]) Diastasis recti Essential (primary) hypertension ([facility]) 05/09/2023 Eustachian salpingitis, left Hypertriglyceridemia ([facility]) hypertriglycerides Hypothyroidism (acquired) ([facility]) 05/09/2023 Left ankle swelling Mixed hyperlipidemia ([facility]) 05/09/2023 Obesity with body mass index (BMI) of 30.0 to 39.9 07/11/2023 PIPPA (obstructive sleep apnea) 05/08/2023 Right ovarian cyst Right-sided Pa's palsy Sinusitis, bacterial Toe pain, left Type 2 diabetes mellitus with hyperglycemia, without long-term current use of insulin ([facility]) 05/09/2023 Yeast infection of the vagina 04/29/2023 [...] instructions are 1/2 pill daily, lot # [id number] Essential (primary) hypertension (CMS/HCC) - Primary Acute [...] Notes May, Ischemic cardiomyopathy (ICD-10 - I25.5) [employer] Other 11-29-2023 Evaluation note* Encounter Date Diagnosis Assessment Notes Treatment Notes Treatment Clinical Notes Apr, History of non-ST elevation myocardial infarction (NSTEMI) (ICD-10 - I25.2) Ms Mitchell is a a 47 yr old female, [place] [facility] [place] for NSTEMI. Cath and PCI to the LAD was successful. Unsuccessful attempt to cross the RCA lesion. HX of DM type 2, HTN, PIPPA, hyperlipidemia. ECHO 04/10/2023: EF of 25-30% with grade 1 diastolic dysfunction. Trace MR, trace TR. [facility] 04/11/2023 consistent with severe two-vessel CAD-70% proximal LAD and 100% proximal RCA. Status post PCI to proximal LAD with 3.5 x 15 mm [place] NILSA. RCA was deemed to be MECHANICAL ENGINEER. Assessment: 2v CAD s/p PCI to LAD (presented with NSTEMI) Systolic heart failure. Euvolemic Hypertension Hyperlipidemia Diabetes type 2 Active tobacco use Family history of premature CAD Morbid obesity PIPPA not compliant with CPAP Plan: - [facility] 04/11/2023 consistent with severe two-vessel CAD-70% proximal LAD and 100% proximal RCA. Status post PCI to proximal LAD with 3.5 x 15 mm Garth NILSA. RCA was deemed to be MECHANICAL ENGINEER. -Continue DAPT-aspirin 81 mg daily plus [...] I25.5) Apr, Post PTCA (ICD-10 - Z98.61) [employer] Other [id number] Hospital Discharge instructions Additional Instructions Please follow [...] doctor or pharmacist, without first calling the datapower developer who implanted the stent. If you require [...] weight lifting, stair steppers, etc. until the datapower developer approves these activities. Check with the datapower developer on your first follow-up visit. CALL YOUR PHYSICIAN at [phone]: -If bleeding should occur from the catheter insertion site- apply pressure to the site then immediately call us. -Report any fever, redness, drainage, increased swelling, or firmness at the catheter insertion site. Some bruising or slight swelling may be present at the time of discharge. -Should arm or leg become cold, numb, white, or blue, contact the datapower developer immediately. -IF you should experience episodes of [...] is recommended. Please call Central Scheduling at [phone] to schedule your appointment.] The attending datapower developer or [facility] nurse clinician should provide you with specific instructions regarding activity, diet, medications, and further follow up for you. Follow the medication instructions provided on your discharge. If the dosages and instructions on this sheet differ from the dosage and instructions on the bottle, follow the instructions on the bottle. [facility] is not responsible for incorrect prescription information provided by the patient during their visit. Do not stop your medications without consulting your health care provider. Please take the list with you to your next doctor's appointment.[facility] Work Phone: 1(338) 184-836011-10-2023 Discharge summary Author Florentino Kenyon [facility] April 12, 2023 9:01am Note Date/Time April 12, 2023 9:01am [facility] [address] [place] [address] Discharge Summary Signed Patient: Lorraine Mitchell MR#: [id number] : 1975 Acct:[id number] Age/Sex: 47 / F Adm Date: 3 Loc: 4 Room: [address] [place] [address]: Florentino Kenyon MD Copies to: [...] stented with a 3.5 x 15 mm [place] stent at 18 john with a residual [...] doctor or pharmacist, without first calling the datapower developer who implanted the stent. If you require [...] weight lifting, stair steppers, etc. until the datapower developer approves these activities. Check with the datapower developer on your first follow-up visit. CALL YOUR PHYSICIAN at [phone]: -If bleeding should occur from the catheter insertion site- apply pressure to the site then immediately call us. -Report any fever, redness, drainage, increased swelling, or firmness at the catheter insertion site. Some bruising or slight swelling may be present at thetime of discharge. -Should arm or leg become cold, numb, white, or blue, contact the datapower developer immediately. -IF you should experience episodes of [...] is recommended. Please call Central Scheduling at [phone] to schedule your appointment.] The attending datapower developer or [facility] nurse clinician should provide you with specific instructions regarding activity, diet, medications, and further follow up for you. Follow the medication instructions provided on your discharge. If the dosages and instructions on this sheet differ from the dosage and instructions on the bottle, follow the instructions on the bottle. [facility] is not responsible for incorrect prescription information [...] <Electronically signed by Florentino Kenyon MD> 04/12/23900 [facility] Work Phone: 1(811) 629-487411-09-2023 Consult note Author W Irish [facility] April 11, 2023 6:12pm Note Date/Time April 11, 2023 6 :12pm [facility] [address] [place] [address] Cardiology Consult Note Signed Patient: Lorraine Mitchell MR#: [id number] : 1975 Acct:[id number] Age/Sex: 47 / F Adm Date: 3 Loc: 4 Room: 5F2883-1 Type: ADM IN Attending Dr: Florentino Kenyon MD Copies to: MD Shilpa Skinner MD W Scott Sheldon, DO~ Cardiology HPI History of Present Illness Consult Date: 04/11/23 Reason for Consult: Non-ST elevation OK, two-vessel ASHD, ischemic cardiomyopathy HPI: Ms. Mitchell [...] alsohad premature CAD. Patient initially presented to [facility] where troponin was positive: 248-256. BNP elevated at 1327. EKG showed sinus tachycardia. Echo today shows EF of 25-30% with grade 1 diastolic dysfunction. Trace MR, trace TR. Troponin trend on arrival [phone] Catheterization was reviewed with primary datapower developer, there is appears to be athrombotic occlusion of the proximal dominant RCA, and moderate 70% disease of the proximal LAD. We will proceed with PCI of the LAD, and attempted crossing of what appears to be a thrombotic occlusion of the RCA. [facility] Medical History (Updated 04/10/23 @ 11:06 by [...] Lymph # (Auto) 3.2 3.0 (1.00-4.8) x10E3/uL [place] # (Auto) 0.4 0.5 (0.0-0.8) x10E3/uL Eos [...] <Electronically signed by Magali Cortez DO> 04/11/23 1812 [facility] Work Phone: 1(296) 532-238311-09-2023 Progress note Author Stephanie Sweet [facility] April 11, 2023 1:12pm Note Date/Time April 11, 2023 1 :09pm [facility] [address] [place] [address] Cardiology Progress Note Signed Patient: Lorraine Mitchell MR#: [id number] : 1975 Acct:[id number] Age/Sex: 47 / F Adm Date: 3 Loc: Room: [address] [place] [address] Type: ADM IN Attending Dr: Florentino Kenyon [...] alsohad premature CAD. Patient initially presented to [facility] where troponin was positive: 248-256. BNP elevated at 1327. EKG showed sinus tachycardia. Echo today shows EF of 25-30% with grade 1 diastolic dysfunction. Trace MR, trace TR. Interim history 04/11/2023: Troponin continues to uptrend 899-->2200. Reports minimal chest pain today. Heparin drip restarted last night. [facility] today Exam Physical Exam Vital Signs: [...] MPV Neut % (Auto) Lymph % (Auto) [place] % (Auto) Eos % (Auto) Baso % (Auto) Nucleat RBC Rel Count Neut # (Auto) Lymph # (Auto) [place] # (Auto) Eos # (Auto) Baso # [...] % (Auto) 56.6 Lymph % (Auto) 36.2 [place] % (Auto) 4.6 Eos % (Auto) 1.2 Baso % (Auto) 1.4 Nucleat RBC Rel Count 0.1 Neut # (Auto) 5.0 Lymph # (Auto) 3.2 [place] # (Auto) 0.4 Eos # (Auto) 0.1 [...] MPV Neut % (Auto) Lymph % (Auto) [place] % (Auto) Eos % (Auto) Baso % (Auto) Nucleat RBC Rel Count Neut # (Auto) Lymph # (Auto) [place] # (Auto) Eos # (Auto) Baso # [...] % (Auto) 59.4 Lymph % (Auto) 33.4 [place] % (Auto) 5.8 Eos % (Auto) 0.9 Baso % (Auto) 0.5 Nucleat RBC Rel Count 0.1 Neut # (Auto) 5.3 Lymph # (Auto) 3.0 [place] # (Auto) 0.5 Eos # (Auto) 0.1 [...] MPV Neut % (Auto) Lymph % (Auto) [place] % (Auto) Eos % (Auto) Baso % (Auto) Nucleat RBC Rel Count Neut # (Auto) Lymph # (Auto) [place] # (Auto) Eos # (Auto) Baso # [...] alsohad premature CAD. Patient initially presented to [facility] where troponin was positive: 248-256. BNP elevated at 1327. EKG showed sinus tachycardia. Echo today shows EF of 25-30% with grade 1 diastolic dysfunction. Trace MR, trace TR. Troponin trend on arrival [phone] Assessment: NSTEMI Systolic heart failure. Euvolemic Hypertension [...] signed by Stephanie Sweet MD> 04/11/23 1312 [facility] Work Phone: [phone]) 986-783611-09-2023 [facility]-2023 Progress note Author Florentino Kenyon [facility] April 11, 2023 9:50am Note Date/Time April 11, 2023 9 :48am [facility] [address] [place] [address] Hospitalist Progress Note Signed Patient: Lorraine Mitchell MR#: [id number] : 1975 Acct:[id number] Age/Sex: 47 / F Adm Date: 3 Loc: Room: [address] [place] [address] Type: ADM IN Attending Dr: Florentino Kenyon [...] Dose Route Start Last Admin Trade Name Audrey PRN Reason Stop Dose Admin Acetaminophen 650 [...] signed by Florentino Kenyon MD> 04/11/23 0950 [facility] Work Phone: 1(960) 451-705211-08-2023 Consult note Author Stephnaie Sweet [facility] April 10, 2023 8:00pm Note Date/Time April 10, 2023 7 :53pm [facility] [address] [place] [address] Cardiology Consult Note Signed Patient: Lorraine Mitchell MR#: [id number] : 1975 Acct:[id number] Age/Sex: 47 / F Adm Date: 3 Loc: Room: [address] [place] [address] Type: ADM IN Attending Dr: Florentino Kenyon [...] alsohad premature CAD. Patient initially presented to [facility] where troponin was positive: 248-256. BNP elevated at 1327. EKG showed sinus tachycardia. Echo today shows EF of 25-30% with grade 1 diastolic dysfunction. Trace MR, trace TR. Review of Systems Review of Systems All other systems reviewed & are negative unless noted below or in HPI [facility] Medical History (Updated 04/10/23 @ 11:06 by [...] alsohad premature CAD. Patient initially presented to [facility] where troponin was positive: 248-256. BNP elevated at 1327. EKG showed sinus tachycardia. Echo today shows EF of 25-30% with grade 1 diastolic dysfunction. Trace MR, trace TR. Troponin trend on arrival [phone] Assessment: NSTEMI Systolic heart failure. Euvolemic Hypertension Hyperlipidemia Diabetes type 2 Active tobacco use Family history of premature CAD Morbid obesity PIPPA not compliant with CPAP Recommendations: -Start heparin drip for ACS. -We will plan for [facility] tomorrow to evaluate coronaries. N.p.o. past midnight -Continue aspirin, statin, losartan 50 mg daily. Will start spironolactone and SGLT2 inhibitor after [facility]. - She will need LifeVest on discharge - Will follow. Documented By: Stephanie Sweet MD 04/10/231751 Signed By: <Electronically signed by Stephanie Sweet MD> 04/10/231999 [facility] Work Phone: 1(571) 722-895111-08-2023 Evaluation note* Author Stephanie Sweet [facility] Authored July 24, 2023 10:10am Ms Mitchell is a a 47 yr old fe male, [place] [facility] [place] for NSTEMI. Cath and PCI to the LAD was successful. Unsuccessful attempt to cross the RCA lesion. HX of DM type 2, HTN, PIPPA, hyperlipidemia. ECHO 04/10/2023: EF of 25-30% with grade 1 diastolic dysfunction. Trace MR, trace TR. [facility] 04/11/2023 consistent with severe two-vessel CAD-70% proximal LAD and 100% proximal RCA. Status post PCI to proximal LAD with 3.5 x 15 mm [place] NILSA. RCA was deemed to be MECHANICAL ENGINEER. Assessment: 2v CAD s/p PCI to LAD (presented with NSTEMI) Ischemic cardiomyopathy/Systolic heart failure. Euvolemic Hypertension Hyperlipidemia Diabetes type 2 Active tobacco use Family history of premature CAD Morbid obesity PIPPA not compliant with CPAP Plan: - [facility] 04/11/2023 consistent with severe two-vessel CAD-70% proximal LAD and 100% proximal RCA. Status post PCI to proximal LAD with 3.5 x 15 mm Garth NILSA. RCA was deemed to be MECHANICAL ENGINEER. - Repeat ECHO 07/12/23 showed improved EF 35-40% with grade I diastolic dysfunction and normal wall motion. Will dc LifeVest today - Continue DAPT-aspirin 81 mg daily plus Brilinta 90 mg twice daily for at least a year. Will send Brilinta refills -Continue atorvastatin 80 mg & Imdur 30mg daily- has not had further episodes of angina. - GDMT: Will switch ARB to Entresto 24-26mg BID; Coreg 6.25mg BID; Farxiga 10mg daily; Spironolactone 25mgdaily. Plan to uptitrate Coreg during the next visit. - Patient is euvolemic and has no diuretic indications. -Discussed smoking cessation-pt is cutting back and is scheduled for acupuncture to help assist with quitting. -Continuing with cardiac rehab. -Follow-up in 2 months. [facility] Work Phone: 1(129) 606-128211-08-2023 History and physical note Author Florentino Kenyon [facility] April 10, 2023 11:10am Note Date/Time April 10, 2023 1 1:10am [facility] [address] [place] [address] Hospitalist H&P Signed Patient: Lorraine Mitchell MR#: [id number] : 1975 Acct:[id number] Age/Sex: 47 / F Adm Date: 3 Loc: Room: [address] [place] [address] Type: ADM IN Attending Dr: Florentino Kenyon [...] or in HPI [facility] Medical History (Updated 04/10/23 @ 11:06 by [...] signed by Florentino Kenyon MD> 04/10/23 1110 [facility] Work Phone: Evaluation note* Diagnosis Onset Date Resolution Status Diabetes type 2, controlled acute Hyperlipidemia acute Hypertension acute Nicotine abuse acute Non-STEMI (non-ST elevated myocardial infarction) acute PIPPA (obstructive sleep apnea) acute [facility] Work Phone: Evaluation noteNo InformationNort [employer] Other evaluation noteNo assessment information available [facility] Work Phone: evalupwhap note* Diagnosis Type 2 diabetes mellitus with hyperglycemia, without long-term current use of insulin ([facility])- Primary Obesity with body mass index (BMI) of 30.0 to 39.9 Tobacco user Tobacco use disorder Essential (primary) hypertension ([facility]) Unspecified essential hypertension Acute heart failure, unspecified heart failure type ([facility]) Anxiety Anxiety state, unspecified documented in this [...] History cath/PCI 04/2023 Hospitalization History NSTEMI 04/2023 [employer] Other Progress note Author Stephanie Sweet [facility] April 12, 2023 2:38pm Note Date/Time April 12, 2023 2:30pm [facility] [address] [place] [address] Cardiology Progress Note Signed Patient: Lorraine Mitchell MR#: [id number] : 1975 Acct:[id number] Age/Sex: 47 / F Adm Date: 3 Loc: Room: [address] [place] [address] Type: ADM IN Attending Dr: Florentino Kenyon [...] alsohad premature CAD. Patient initially presented to [facility] where troponin was positive: 248-256. BNP elevated [...] alsohad premature CAD. Patient initially presented to [facility] where troponin was positive: 248-256. BNP elevated at 1327. EKG showed sinus tachycardia. Echo today shows EF of 25-30% with grade 1 diastolic dysfunction. Trace MR, trace TR. Troponin trend on arrival [phone] Assessment: NSTEMI Systolic heart failure. Euvolemic Hypertension Hyperlipidemia Diabetes type 2 Active tobacco use Family history of premature CAD Morbid obesity PIPPA not compliant with CPAP Recommendations: - [facility] 04/11/2023 consistent with severe two-vessel CAD-70% proximal LAD and 100% proximal RCA. Status post PCI to proximal LAD with 3.5 x 15 mm Garth NILSA. RCA was deemed to be MECHANICAL ENGINEER. Appreciate Dr Cortez's assistance in this [...] she change her mind. -2-week follow-up with [facility] cardiology. Documented By: Stephanie Sweet MD 04/12/23 1129 Signed By: <Electronically signed by Stephanie Sweet MD> 04/12/23 1438 [facility] Work Phone: Reason for visit NarrativeCARDIAC REHAB REFERRAL UPDATEBroken Arrow [employer] Other Summary Purpose Family History Relationship Condition [...] Unknown Hypertension Unknown sister Malignant neoplasm Unknown Relationship Condition Age at Onset Recorded Date/T liam sister Malignant neoplasm of pancreas Unknown father Malignant neoplasm of colon Unknown Unknown Myocardial infarction Unknown Not Specified Cerebrovascular accident (CVA) Unknown Diabetes mellitus Unknown Hypertension Unknown brother Status post four ves jazmine coronary artery bypass Unknown brother Hypertension Unknown Advance Directives Advance Directive Response Recorded Date/ Time Advance Directives No November 15 12:56pm Chief Complaint and Reason for Visit Chief Complaint Non Stemi Reason for Visit Diabetes type 2, con trolled Hyperlipidemia Hypertension Nicotine abuse Non-STEMI (non-ST elevated myocardial infarction) PIPPA (obstructive sleep apnea) Chief Complaint [facility]: 2wks i25.2 I25.5 Chief Complaint [facility]: 2wks i25.2 I25.5 3 month follow up Reason for Referral Reason Cardiac rehab Diagnosis 1 Ischemic cardiomyopa thy (I25.5) Diagnosis 2 Post PTCA (Z98.61) Diagnosis 3 History of non-ST el evation myocardial infarction (NSTEMI) (I25.2) Referral Organization [facility] Referring Provider First Name Stephanie Referring Provider Last Name Kee Referring Provider Specialty Cardiovascu lar Disease Referred Organization [facility] [place],[phone] Referred Provider Specialty Cardiology Referral Priority Routine General Notes Cecilia Acuña 02:15:12 PM >received today, attachments made, waiting for notes to be locked Clinical Notes central scheduling f: [id number] Additional Source Comments INFORMATION SOURCE (unrecogn ized section and content) DATE CREATED AUTHOR 08/19/2020 [facility] DATE CREATED AUTHOR AUTHOR'S ORGANIZ ATION 01/08/2022 [facility] DATE CREATED AUTHOR AUTHOR'S ORGANIZ ATION 07/13/2023 [facility] EPIC DATE CREATED AUTHOR AUTHOR'S ORGANIZ ATION 07/13/2023 [facility] Care Teams (unrecognized sec tion and content) Team Status: Active Member Role Status Dates Shilpa Lewis MD Primary Care Provider Active Team Status: Inactive Member Role Status Dates Shilpa Lewis MD Primary Care Provider Active Florentino Kenyon MD Admit Provider, Attending Provider A ctive Digital Developer Relationship Specialty Start Date End Date Thom Weinberg MD [address] [place] [phone] PCP - General Family Medicine 05/20/23 Nelida Ambrosio NP [address] [place] [address] Nurse Practitioner Family Medicine 04/19/23 Team Status: [...] July 12, 2023 End: July 12, 2023 Digital Developer Relationship Specialty Start Date End Date Thom Weinberg MD [address] [place] [phone] PCP - General Family Medicine 05/20/23 Nelida Abmrosio NP [address] [place] [phone] Nurse Practitioner Family Medicine 04/19/23 Digital Developer Relationship Specialty Start Date End Date Thom Weinberg MD [address] [place] [phone] PCP - General Family Medicine 05/20/23 Nelida Ambrosio NP [address] [place] [phone] Nurse Practitioner [facility] 04/19/23 Team Status: Inactive Member Role Status Dates Shilpa Lewis MD Primary Care Provider Active Start: July 24, 2023 End: July 24, 2023 Stephanie Sweet MD Attending Provider Active Sta rt: July 24, 2023 End: July 24, 2023 REASON FOR VISIT (unrecogniz ed section and content) [facility] [place] 2[facility]KSClinical Acute Ill nessClinical Goals (unrecognized section [...] BE BASED ON THE PRIMARY CLINICAL RECORDS. [facility]. provides no warranty or guarantee of the accuracy or completeness of information in this document.
== END 2023-07-31 19:51 | disposition home or self-care (01) ==
LOC: SLEEP 19:50
PROVIDERS: PCP Nurse Practitioner; Visit Provider Nurse Practitioner
DX: G47.33 Obstructive sleep apnea (adult) (pediatric) (principal); Z98.61 Coronary angioplasty status; I25.5 Ischemic cardiomyopathy; I25.2 Old myocardial infarction
CPT/HCPCS: 95811

== ENCOUNTER 2023-08-23 07:14 | Outpatient (RCR) | payer OTHER, SELFPAY ==
--- NOTE | 2023-06-19 13:42 | CR1_ITS ---
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
--- NOTE | 2023-07-17 11:02 | CR1_ITS ---
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
--- NOTE | 2023-08-14 11:01 | CR1_ITS ---
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
== END 2023-08-27 11:19 | disposition home or self-care (01) ==
LOC: CR 07:14
PROVIDERS: PCP Nurse Practitioner
DX: Z98.61 Coronary angioplasty status (principal); I25.5 Ischemic cardiomyopathy; I25.2 Old myocardial infarction
CPT/HCPCS: 93798

== ENCOUNTER 2023-08-24 10:58 | Outpatient (OUT) | payer OTHER, SELFPAY ==
--- OUTSIDE RECORDS SUMMARY | 2023-08-24 11:02 | XMS_ITS | CCD ---
Author Organization [facility] Care Team Providers Care Automatic Winder Operator Name Role Phone DR SHILPA LEWIS Admitting Unavailable JOSHUA, DR SHILPA Cullen Attending Unavailable DR SHILPA LEWIS Primary Care Unavailable DR SHILPA LEWIS Consulting Unavailable MD Shilpa Lewis Primary Care Provider [phone] MD Florentino Kenyon Admit Provider MD Florentino Kenyon Attending Provider [phone] Stephanie Sweet Unavailable Nelida Ambrosio NP Unavailable Thom Weinberg MD Primary Care Provider [phone] MD Shilpa Lewis Primary Care Provider [phone] MD Stephanie Sweet Attending Provider NELIDA AMBROSIO Attending Unavailable NELIDA AMBROSIO Attending [...] PO Every evening April 12, 2023 12:00am Blood Glucose Monitoring [...] Active oral daily for 0 *Reorder from [employer] for eRx and Interaction Alerts* May, Not-Taking/PRN [...] hyperglycemia, without long-term current use of insulin (CMS/[facility]) Take 2 tablets (1,000 mg) by mouth [...] two times daily for 0 *Reorder from [employer] for eRx and Interaction Alerts* Mar, Active [...] Test Name Value Interpretation Reference Range Facility [facility] echo transthoracicon [facility] echo transthoracic [facility] [place] [address] Echocardiogram Signed Patient: Lorraine Mitchell MR#: [id number] 93 : 1975 Acct:[id number] Age/Sex: 47 / F ADM Date: 07/12/23 Loc: Room: Type: [facility] Attending Dr: Stephanie Sweet MD Ordering Provider: Stephanie Sweet MD Date of Service: 07/12/2302/24/1326 E[facility] echo transthoracic: History of non-ST elevation myocardial [...] ES Default ()_phl: 30.0 % Transcribed By: SCV Performed At: 07/12/23 1334 Signed By: Grace Solorio MD 07/12/23 1521 [facility] ALL LIPID PROFILE (FASTING)o n 07-06-2023 CHOL HDL RATIO 3.8 [facility] Comment on above: 3.3 - 4.4 LOW RISK 4.4 - 7.1 AVERAGE RISK 7.1 - 11.0 MODERATE RISK >11.0 HIGH RISK Cholesterol [Mass/Vol] 124 mg/dL NINF - 200 mg/dL [facility] Cholesterol in HDL [Mass/Vol] 33 mg/dL Low 40 - 60 mg/dL [facility] Comment on above: > or =60 mg/dl - LOW CARDIOVASCULAR RISK <40 mg/dl - HIGH CARDIOVASCULAR RISK Magnesium [Mass/Vol] 37.0 mg/dL [facility] Comment on above: <100 mg/dl OPTIMAL 100-129 mg/dl NEAR OR ABOVE OPTIMAL 130-159 mg/dl BORDERLINE HIGH 160-189 mg/dl HIGH >190 mg/dl VERY HIGH Magnesium [Mass/Vol] 54.2 mg/dL [facility] Triglyceride [Mass/Vol] 271 mg/dL High NINF - 150 mg/dL [facility] Donna 07-06-2023 ALT [Catalytic activity/Vol] 37 U/L 14 - 59 U/L [facility] Jenny 07-06-2023 AST [Catalytic activity/Vol] 13 U/L Low 15 - 37 U/L [facility] No Panel Informationon 07-06 Interpretation and review of laboratory results Abnormal [facility] ECG 12 lead ECGon 04-12-2023 ECG 12 lead ECG [facility] [place] [address] Electrocardiograph Report Signed Patient: Lorraine Mitchell MR#: [id number] 93 : 1975 Acct:[id number] Age/Sex: 47 / F ADM Date: 04/10/23 Loc: Room: [address] [place] [address] Type: DIS IN Attending Dr: Florentino Kenyon [...] MUS Signed By Darryl Kee MD 2216 Normal [facility] Glucose Glucometer (BldC) [M ass/Vol]Ordered By: Florentino Kenyon on 04-12-2023 Glucose [Mass/Vol] 226 mg/dL [facility] Comment on above: Random Glucose Refer ence Range is dependent on time and content of last meal. Glucose of more than 200 mg/dL in a nonstressed, ambulatory subject supports the diagnosis of Diabetes Mellitus. Glucose Poct Glucometerson 1 06-12-2022 Glucose [Mass/Vol] 226 mg/dL Normal [facility] Comment on above: Result Comment: [facility] om Glucose Reference Range is dependent on time and content of last meal. Glucose of more than 200 mg/dL in a nonstressed, ambulatory subject supports the diagnosis of Diabetes Mellitus. PERFORMED BY: [place] [address] PATHOLOGIST PROBATE CLERK ELPIDIO DUMONT M.D. Performed By: #### G LULS #### Point of Care testing , Glucose [Mass/Vol] 219 mg/dL Normal [facility] Comment on above: Result Comment: [facility] Glucose Reference Range is dependent on time and content of last meal. Glucose of more than 200 mg/dL in a nonstressed, ambulatory subject supports the diagnosis of Diabetes Mellitus. PERFORMED BY: [place] [address] PATHOLOGIST PROBATE CLERK ELPIDIO DUMONT M.D. Performed By: #### H S TROP, CK #### [address] Troponin I High Sensitivityo n 04-12-2023 Troponin I High Sensitivity 3417.1 pg/mL Off scale high 0.0-15.0 [facility] Comment on above: Result Comment: Crit ical Result : Called to and read back by: CLAYTON MCCLOUD at: 04/12/2023 06:08:29 by:[id number] PERFORMED BY: [place] [address] PATHOLOGIST PROBATE CLERK ELPIDIO DUMONT M.D. Performed By: #### H S TROP, CK #### [facility] [address] [place] [address] Troponin I.cardiac [Mass/vol ume] in Serum or Plasma by Detection limit <= 0.01 ng/Ordered By: Magali [place]ez on 04-12-2023 Troponin I.cardiac DL <= 0.01 ng/mL [Mass/Vol] 3417.1 pg/mL 0.0-15.0 [facility] Comment on above: Critical Result : Ca lled to and read back by: CLAYTON MCCLOUD at: 04/12/2023 06:08:29 by:[id number] Activated partial thrombopla stin time (aPTT) in platelet poor plasma by coagulation aOrdered By: Stephanie Sweet on 04-11-2023 aPTT Coag (PPP) [Time] 29.3 s 25.1-36.5 [facility] Comment on above: A hematocrit value g reater than 55% may lead to inaccurate results in coagulation testing. Patients having hematocrit values >55% require a special collection tube for coagulation studies. Please contact the laboratory at [phone] for redraw instructions. Basophils Auto (Bld) [#/Vol] Ordered By: Stephanie Sweet on 04-11-2023 Basophils (Bld) [#/Vol] 0.0 10*3/uL 0.0-0.2 [facility] Basophils/100 WBC Auto (Bld) Ordered By: Stephanie Sweet on 04-11-2023 Basophils/100 WBC (Bld) 0.5 % . [facility] Blood Urea Nitrogenon 2022 Urea nitrogen [Mass/Vol] 11 mg/dL Normal 7-25 [facility] Comment on above: Performed By: #### C REAT, BUN, CBC, LYTES #### [facility] [address] [place] [address] Carbon dioxide, total [Moles /volume] in Serum or PlasmaOrdered By: Stephanie Sweet on 04-11-2023 CO2 [Moles/Vol] 26.7 mmol/L 21.0-31.0 [facility] Chloride [Moles/volume] in S ambika or PlasmaOrdered By: Stephanie Sweet on 04-11-2023 Chloride [Moles/Vol] 101 mmol/L 98-107 [facility] Coagulation Profileon 2022 aPTT Coag (Bld) [Time] 29.3 s Normal 25.1-36.5 [facility] Comment on above: Result Comment: A he matocrit value greater than 55% may lead to inaccurate results in coagulation testing. Patients having hematocrit values >55% require a special collection tube for coagulation studies. Please contact the laboratory at [phone] for redraw instructions. PERFORMED BY: [place] [address] PATHOLOGIST PROBATE CLERK ELPIDIO DUMONT M.D. Performed By: #### H S TROP, CK #### [facility] [address] [place], [place] [id number] [facility] INR Coag (PPP) [Relative time] 1.0 {INR} Normal [facility] Comment on above: Result Comment: INR [...] By: #### H S TROP, CK #### [facility] [address] [place] [address] [place] PT Coag (PPP) [Time] 12.0 s Normal 9.0-12.9 [facility] Comment on above: Result Comment: A he matocrit value greater than 55% may lead to inaccurate results in coagulation testing. Patients having hematocrit values >55% require a special collection tube for coagulation studies. Please contact the laboratory at [phone] for redraw instructions. Performed By: #### H S TROP, CK #### [address] Complete Blood Count Auto Di ffon 04-11-2023 Basophils (Bld) [#/Vol] 0.0 10*3/uL Normal 0.0-0.2 [facility] Comment on above: Result Comment: PERF ORMED BY: [place] [address] PATHOLOGIST PROBATE CLERK ELPIDIO DUMONT M.D. Performed By: #### C REAT, BUN, CBC, LYTES #### [address] Basophils/100 WBC (Bld) 0.5 % Normal . [facility] Comment on above: Performed By: #### C REAT, BUN, CBC, LYTES #### [address] Eosinophils (Bld) [#/Vol] 0.1 10*3/uL Normal 0.0-0.45 [facility] Comment on above: Performed By: #### C REAT, BUN, CBC, LYTES #### [address] Eosinophils/100 WBC (Bld) 0.9 % Normal . [facility] Comment on above: Performed By: #### C REAT, BUN, CBC, LYTES #### [address] Erythrocyte distribution width (RBC) [Ratio] 14.5 % Normal 11.9-15.3 [facility] Comment on above: Performed By: #### C REAT, BUN, CBC, LYTES #### [address] Hematocrit (Bld) [Volume fraction] 35.1 % Normal 34.0-46.4 [facility] Comment on above: Performed By: #### C REAT, BUN, CBC, LYTES #### [address] Hemoglobin (Bld) [Mass/Vol] 11.8 g/dL Normal 11.8-15.4 [facility] Comment on above: Performed By: #### C REAT, BUN, CBC, LYTES #### [address] Lymphocytes (Bld) [#/Vol] 3.0 10*3/uL Normal 1.00-4.8 [facility] Comment on above: Performed By: #### C REAT, BUN, CBC, LYTES #### [address] Lymphocytes/100 WBC (Bld) 33.4 % Normal . [facility] Comment on above: Performed By: #### C REAT, BUN, CBC, LYTES #### [address] MCH (RBC) [Entitic mass] 30.7 pg Normal 24.7-34.3 [facility] Comment on above: Performed By: #### C REAT, BUN, CBC, LYTES #### [address] MCV (RBC) [Entitic vol] 91.1 fL Normal 80-100 [facility] Comment on above: Performed By: #### C REAT, BUN, CBC, LYTES #### [address] Mean Corpuscular HGB Conc 33.7 g/dL Normal 32.0-35.0 [facility] Comment on above: Performed By: #### C REAT, BUN, CBC, LYTES #### [address] Monocytes (Bld) [#/Vol] 0.5 10*3/uL Normal 0.0-0.8 [facility] Comment on above: Performed By: #### C REAT, BUN, CBC, LYTES #### [address] Monocytes/100 WBC (Bld) 5.8 % Normal . [facility] Comment on above: Performed By: #### C REAT, BUN, CBC, LYTES #### [place] [address] [place] Neutrophils (Bld) [#/Vol] 5.3 10*3/uL Normal 1.8-7.7 [facility] Comment on above: Performed By: #### C REAT, BUN, CBC, LYTES #### [address] Neutrophils/100 WBC (Bld) 59.4 % Normal . [facility] Comment on above: Performed By: #### C REAT, BUN, CBC, LYTES #### [address] NRBC% 0.1 /100{WBC} Normal 0-0.5 [facility] Comment on above: Performed By: #### C REAT, BUN, CBC, LYTES #### [address] Platelet mean volume (Bld) [Entitic vol] 9.4 fL Normal 6.3-10.7 [facility] Comment on above: Performed By: #### C REAT, BUN, CBC, LYTES #### [place] [address] [place] Platelets (Bld) [#/Vol] 213 10*3/uL Normal 150-450 [facility] Comment on above: Performed By: #### C REAT, BUN, CBC, LYTES #### [address] RBC (Bld) [#/Vol] 3.85 10*6/uL Normal 3.60-5.00 [facility] Comment on above: Performed By: #### C REAT, BUN, CBC, LYTES #### [address] WBC (Bld) [#/Vol] 9.0 10*3/uL Normal 3.8-11.6 [facility] Comment on above: Performed By: #### C REAT, BUN, CBC, LYTES #### [address] [place] [address] [place] Creatine Kinaseon 04-11-2023 CK [Catalytic activity/Vol] 186 U/L Normal [facility] Comment on above: Performed By: #### H S TROP, CK #### [place] [address] [place] CK [Catalytic activity/Vol] 242 U/L High [facility] Comment on above: Performed By: #### H S TROP, CK #### [place] [address] [place] Creatine kinase [Enzymatic a ctivity/volume] in Serum or PlasmaOrdered By: Florentino Kenyon on 04-11-2023 CK [Catalytic activity/Vol] 186 U/L [facility] Creatinineon 04-11-2023 Creatinine [Mass/Vol] 0.47 mg/dL Low 0.60-1.20 [facility] Comment on above: Performed By: #### H S TROP, CK #### [place] [address] [place] Creatinine Clr Calc Pharmacy 166.11 [facility] Comment on above: Result Comment: PERF ORMED BY: [place] [address] PATHOLOGIST PROBATE CLERK ELPIDIO DUMONT M.D. Performed By: #### H S TROP, CK #### [place] [address] [place] GFR/1.73 sq M.predicted MDRD (S/P/Bld) [Vol rate/Area] mL/min/{1.73_m2} [facility] Comment on above: Performed By: #### H S TROP, CK #### [facility] [address] [place] [address] [place] Creatinine [Mass/volume] in Serum or PlasmaOrdered By: Stephanie Sweet on 04-11-2023 Creatinine [Mass/Vol] 0.47 mg/dL 0.60-1.20 [facility] ECG 12 lead ECGon 04-11-2023 ECG 12 lead ECG [facility] Main [place] [address] [place] [address] Electrocardiograph Report Signed Patient: Lorraine Mitchell MR#: [id number] 93 : 1975 Acct:[id number] Age/Sex: 47 / F ADM Date: 04/10/23 Loc: Room: [address] [place] [address] Type: DIS IN Attending Dr: Florentino Kenyon [...] Signed By Darryl Kee MD 2049 Normal [facility] Electrolyteson 04-11-2023 Anion gap [Moles/Vol] 12.1 mmol/L Normal 6.0-15.0 [facility] Comment on above: Performed By: #### C REAT, BUN, CBC, LYTES #### [facility] [address] Chloride [Moles/Vol] 101 mmol/L Normal 98-107 [facility] Comment on above: Performed By: #### C REAT, BUN, CBC, LYTES #### [facility] [address] CO2 [Moles/Vol] 26.7 mmol/L Normal 21.0-31.0 [facility] Comment on above: Performed By: #### C REAT, BUN, CBC, LYTES #### [facility] [address] Potassium [Moles/Vol] 3.8 mmol/L Normal 3.5-5.1 [facility] Comment on above: Performed By: #### C REAT, BUN, CBC, LYTES #### [facility] [address] Sodium [Moles/Vol] 136 mmol/L Normal 136-145 [facility] Comment on above: Performed By: #### C REAT, BUN, CBC, LYTES #### [facility] [address] [place] [address] [place] Eosinophils Auto (Bld) [#/Vo l]Ordered By: Stephanie Sweet on 04-11-2023 Eosinophils (Bld) [#/Vol] 0.1 10*3/uL 0.0-0.45 [facility] Eosinophils/100 WBC Auto (Bl d)Ordered By: Stephanie Sweet on 04-11-2023 Eosinophils/100 WBC (Bld) 0.9 % . [facility] Erythrocyte distribution wid th Auto (RBC) [Ratio]Ordered By: Stephanie Sweet on 04-11-2023 Erythrocyte distribution width (RBC) [Ratio] 14.5 % 11.9-15.3 [facility] Glucose Poct Glucometerson 1 06-11-2022 Glucose [Mass/Vol] 200 mg/dL Normal [facility] Comment on above: Result Comment: [facility] Glucose Reference Range is dependent on time and content of last meal. Glucose of more than 200 mg/dL in a nonstressed, ambulatory subject supports the diagnosis of Diabetes Mellitus. PERFORMED BY: [place] [address] PATHOLOGIST PROBATE CLERK ELPIDIO DUMONT M.D. Performed By: #### G LULS #### Point of Care testing , Commemt1 Glu2: Cleaned Meter Normal [facility] Comment on above: Result Comment: PERF ORMED BY: [place] [address] PATHOLOGIST PROBATE CLERK ELPIDIO DUMONT M.D. Performed By: #### G LULS #### Point of Care testing , Glucose [Mass/Vol] 221 mg/dL Normal [facility] Comment on above: Result Comment: [facility] Glucose Reference Range is dependent on time and content of last meal. Glucose of more than 200 mg/dL in a nonstressed, ambulatory subject supports the diagnosis of Diabetes Mellitus. Performed By: #### G LULS #### Point of Care testing , Glucose [Mass/Vol] 204 mg/dL Normal [facility] Comment on above: Result Comment: [facility] Glucose Reference Range is dependent on time and content of last meal. Glucose of more than 200 mg/dL in a nonstressed, ambulatory subject supports the diagnosis of Diabetes Mellitus. PERFORMED BY: [facility] [address] [place] [address] PATHOLOGIST PROBATE CLERK ELPIDIO DUMONT M.D. Performed By: #### G LULS #### Point of Care testing , Hematocrit Auto (Bld) [Volum e fraction]Ordered By: Stephanie Sweet on 04-11-2023 Hematocrit (Bld) [Volume fraction] 35.1 % 34.0-46.4 [facility] Hemoglobin [Mass/volume] in BloodOrdered By: Stephanie Sweet on 04-11-2023 Hemoglobin (Bld) [Mass/Vol] 11.8 g/dL 11.8-15.4 [facility] INR in Platelet poor plasma by Coagulation assayOrdered By: Stephanie Sweet on 04-11-2023 INR Coag (PPP) [Relative time] 1.0 {INR} [facility] Comment on above: INR Therapeutic Rang [...] RBC Auto (Bld) [#/Vol] 9.0 10*3/uL 3.8-11.6 [facility] Lymphocytes Auto (Bld) [#/Vo l]Ordered By: Stephanie Sweet on 04-11-2023 Lymphocytes (Bld) [#/Vol] 3.0 10*3/uL 1.00-4.8 [facility] Lymphocytes/100 WBC Auto (Bl d)Ordered By: Stephanie Sweet on 04-11-2023 Lymphocytes/100 WBC (Bld) 33.4 % . [facility] MCH Auto (RBC) [Entitic mass ]Ordered By: Stephanie Sweet on 04-11-2023 MCH (RBC) [Entitic mass] 30.7 pg 24.7-34.3 [facility] MCHC Auto (RBC) [Mass/Vol]Or dered By: Stephanie Sweet on 04-11-2023 MCHC (RBC) [Mass/Vol] 33.7 g/dL 32.0-35.0 [facility] MCV Auto (RBC) [Entitic vol] Ordered By: Stephanie Sweet on 04-11-2023 MCV (RBC) [Entitic vol] 91.1 fL 80-100 [facility] Monocytes Auto (Bld) [#/Vol] Ordered By: Stephanie Sweet on 04-11-2023 Monocytes (Bld) [#/Vol] 0.5 10*3/uL 0.0-0.8 [facility] Monocytes/100 WBC Auto (Bld) Ordered By: Stephanie Sweet on 04-11-2023 Monocytes/100 WBC (Bld) 5.8 % . [facility] Neutrophils Auto (Bld) [#/Vo l]Ordered By: Stephanie Sweet on 04-11-2023 Neutrophils (Bld) [#/Vol] 5.3 10*3/uL 1.8-7.7 [facility] Neutrophils/100 WBC Auto (Bl d)Ordered By: Stephanie Sweet on 04-11-2023 Neutrophils/100 WBC (Bld) 59.4 % . [facility] No Panel InformationOrdered By: Florentino Kenyon on 04-11-2023 Bedside Glucose Comment Glu2: cleaned meter [facility] No Panel InformationOrdered By: Stephanie Sweet on 04-11-2023 Estimated GFR (CKD-EPI) > 60.0 mL/Min [facility] Creatinine Clearance (Chem 166.11 [facility] Nucleated erythrocytes [Pres ence] in Blood by Automated countOrdered By: Stephanie Sweet on 04-11-2023 Nucleated RBC Auto Ql (Bld) 0.1 /100{WBC} 0-0.5 [facility] Partial Thromboplastin Timeo n 04-11-2023 aPTT Coag (Bld) [Time] 29.2 s Normal 25.1-36.5 [facility] Comment on above: Result Comment: A he matocrit value greater than 55% may lead to inaccurate results in coagulation testing. Patients having hematocrit values >55% require a special collection tube for coagulation studies. Please contact the laboratory at [phone] for redraw instructions. PERFORMED BY: [place] [address] PATHOLOGIST PROBATE CLERK ELPIDIO DUMONT M.D. Performed By: #### H S TROP, CK #### [address] Platelet mean volume Auto (B ld) [Entitic vol]Ordered By: Stephanie Sweet on 04-11-2023 Platelet mean volume (Bld) [Entitic vol] 9.4 fL 6.3-10.7 [facility] Platelets Auto (Bld) [#/Vol] Ordered By: Stephanie Sweet on 04-11-2023 Platelets (Bld) [#/Vol] 213 10*3/uL 150-450 [facility] Potassium [Moles/volume] in Serum or PlasmaOrdered By: Stephanie Sweet on 04-11-2023 Potassium [Moles/Vol] 3.8 mmol/L 3.5-5.1 [facility] Prothrombin time (PT)Ordered By: Stephanie Sweet on 04-11-2023 PT Coag (PPP) [Time] 12.0 s 9.0-12.9 [facility] Comment on above: A hematocrit value g reater than 55% may lead to inaccurate results in coagulation testing. Patients having hematocrit values >55% require a special collection tube for coagulation studies. Please contact the laboratory at [phone] for redraw instructions. RBC Auto (Bld) [#/Vol]Ordere d By: Stephanie Sweet on 04-11-2023 RBC (Bld) [#/Vol] 3.85 10*6/uL 3.60-5.00 [facility] Serum or plasma anion gap de terminationOrdered By: Stephanie Sweet on 04-11-2023 Anion gap [Moles/Vol] 12.1 mmol/L 6.0-15.0 [facility] Sodium [Moles/volume] in Ser um or PlasmaOrdered By: Stephanie Sweet on 04-11-2023 Sodium [Moles/Vol] 136 mmol/L 136-145 [facility] Troponin I High Sensitivityo n 04-11-2023 Troponin I High Sensitivity 2287.4 pg/mL Off scale high 0.0-15.0 [facility] Comment on above: Result Comment: Crit ical Result : Called to and read back by: LILLY GRAY at: 04/11/2023 12:03:27 by:[email or web address] PERFORMED BY: [phone] PATHOLOGIST PROBATE CLERK ELPIDIO DUMONT M.D. Performed By: #### H S TROP, CK #### [facility] [address] [place] [address] Troponin I High Sensitivity 2115.2 pg/mL Off scale high 0.0-15.0 [facility] Comment on above: Result Comment: Crit ical Result : Called to and read back by: CLAYTON REDMAN at: 04/11/2023 00:13:42 by:DH PERFORMED BY: [place] [phone] PATHOLOGIST PROBATE CLERK ELPIDIO DUMONT M.D. Performed By: #### H S TROP, CK #### [place] [id number] [place] Urea nitrogen [Mass/volume] in Serum or PlasmaOrdered By: Stephanie Sweet on 04-11-2023 Urea nitrogen [Mass/Vol] 11 mg/dL 7-25 [facility] WBC Auto (Bld) [#/Vol]Ordere d By: Stephanie Sweet on 04-11-2023 WBC (Bld) [#/Vol] 9.0 10*3/uL 3.8-11.6 [facility] Complete Blood Count Auto Di ffon 04-10-2023 Basophils (Bld) [#/Vol] 0.1 10*3/uL Normal 0.0-0.2 [facility] Comment on above: Result Comment: PERF ORMED BY: [place] [address] PATHOLOGIST PROBATE CLERK ELPIDIO DUMONT M.D. Performed By: #### H S TROP, CK #### [address] Basophils/100 WBC (Bld) 1.4 % Normal . [facility] Comment on above: Performed By: #### H S TROP, CK #### [address] Eosinophils (Bld) [#/Vol] 0.1 10*3/uL Normal 0.0-0.45 [facility] Comment on above: Performed By: #### H S TROP, CK #### [address] Eosinophils/100 WBC (Bld) 1.2 % Normal . [facility] Comment on above: Performed By: #### H S TROP, CK #### [address] Erythrocyte distribution width (RBC) [Ratio] 14.1 % Normal 11.9-15.3 [facility] Comment on above: Performed By: #### H S TROP, CK #### [address] Hematocrit (Bld) [Volume fraction] 36.0 % Normal 34.0-46.4 [facility] Comment on above: Performed By: #### H S TROP, CK #### [facility] [address] Hemoglobin (Bld) [Mass/Vol] 12.2 g/dL Normal 11.8-15.4 [facility] Comment on above: Performed By: #### H S TROP, CK #### [facility] [address] Lymphocytes (Bld) [#/Vol] 3.2 10*3/uL Normal 1.00-4.8 [facility] Comment on above: Performed By: #### H S TROP, CK #### [facility] [address] Lymphocytes/100 WBC (Bld) 36.2 % Normal . [facility] Comment on above: Performed By: #### H S TROP, CK #### [address] MCH (RBC) [Entitic mass] 30.7 pg Normal 24.7-34.3 [facility] Comment on above: Performed By: #### H S TROP, CK #### [address] MCV (RBC) [Entitic vol] 90.9 fL Normal 80-100 [facility] Comment on above: Performed By: #### H S TROP, CK #### [address] Mean Corpuscular HGB Conc 33.8 g/dL Normal 32.0-35.0 [facility] Comment on above: Performed By: #### H S TROP, CK #### [address] Monocytes (Bld) [#/Vol] 0.4 10*3/uL Normal 0.0-0.8 [facility] Comment on above: Performed By: #### H S TROP, CK #### [address] Monocytes/100 WBC (Bld) 4.6 % Normal . [facility] Comment on above: Performed By: #### H S TROP, CK #### [facility] [address] [place] [address] [place] Neutrophils (Bld) [#/Vol] 5.0 10*3/uL Normal 1.8-7.7 [facility] Comment on above: Performed By: #### Wil S TROP, CK #### [facility] [address] Neutrophils/100 WBC (Bld) 56.6 % Normal . [facility] Comment on above: Performed By: #### H S TROP, CK #### [facility] [address] NRBC% 0.1 /100{WBC} Normal 0-0.5 [facility] Comment on above: Performed By: #### H Sushma TROP, CK #### [facility] [address] Platelet mean volume (Bld) [Entitic vol] 9.3 fL Normal 6.3-10.7 [facility] Comment on above: Performed By: #### Wil Ordaz TROP, CK #### [facility] [address] [place] [address] [place] Platelets (Bld) [#/Vol] 213 10*3/uL Normal 150-450 [facility] Comment on above: Performed By: #### Wil Ordaz TROP, CK #### [facility] [address] RBC (Bld) [#/Vol] 3.96 10*6/uL Normal 3.60-5.00 [facility] Comment on above: Performed By: #### H S TROP, CK #### [facility] [address] [place] [address] [place] WBC (Bld) [#/Vol] 8.9 10*3/uL Normal 3.8-11.6 [facility] Comment on above: Performed By: #### Wil S TROP, CK #### [place] [address] [place] Creatine Kinaseon 04-10-2023 CK [Catalytic activity/Vol] 268 U/L High 30-223 [facility] Comment on above: Performed By: #### G LULS #### Point of Care testing , CK [Catalytic activity/Vol] 238 U/L High 30-223 [facility] Comment on above: Performed By: #### H S TROP, CK #### [facility] [address] [place] [id number] [facility] CK [Catalytic activity/Vol] 210 U/L Normal 30- [facility] Comment on above: Performed By: #### H S TROP, CK #### [facility] [address] [place] [id number] [facility] ECG 12 lead ECGon 04-10-2023 ECG 12 [place] [address] Electrocardiograph Report Signed Patient: Lorraine Mitchell MR#: [id number] 93 : 1975 Acct:[id number] Age/Sex: 47 / F ADM Date: 04/10/23 Loc: Room: [address] [place] [address] Type: ADM IN Attending Dr: Florentino Kenyon [...] (247) on 04/11/2023 3:52:37 PM Referred By: [facility] CARDIOLOGY Electronically Signed By:DARRYL KEE MD Transcribed By: [facility] Signed By Darryl Kee MD 3448 Normal [facility] ECH echo transthoracicon [facility] echo transthoracic [facility] [place] [address] Echocardiogram Signed Patient: Lorraine Mitchell MR#: [id number] 93 : 1975 Acct:[id number] Age/Sex: 47 / F ADM Date: 04/10/23 Loc: 4 Room: [id number] Type: ADM IN Attending Dr: Florentino Kenyon [...] Signed By: Grace Solorio MD 04/10/23 1309 [facility] Glucose Poct Glucometerson 1 06-10-2022 Glucose [Mass/Vol] 201 mg/dL Normal [facility] Comment on above: Result Comment: [facility] Glucose Reference Range is dependent on time and content of last meal. Glucose of more than 200 mg/dL in a nonstressed, ambulatory subject supports the diagnosis of Diabetes Mellitus. PERFORMED BY: [place] [address] PATHOLOGIST PROBATE CLERK ELPIDIO DUMONT M.D. Performed By: #### G LULS #### Point of Care testing , Glucose [Mass/Vol] 214 mg/dL Normal [facility] Comment on above: Result Comment: [facility] Glucose Reference Range is dependent on time and content of last meal. Glucose of more than 200 mg/dL in a nonstressed, ambulatory subject supports the diagnosis of Diabetes Mellitus. PERFORMED BY: [place] [phone] PATHOLOGIST PROBATE CLERK ELPIDIO DUMONT M.D. Performed By: #### H S TROP, CK #### [address] Glucose [Mass/Vol] 196 mg/dL Normal [facility] Comment on above: Result Comment: [facility] Glucose Reference Range is dependent on time and content of last meal. Glucose of more than 200 mg/dL in a nonstressed, ambulatory subject supports the diagnosis of Diabetes Mellitus. PERFORMED BY: [place] [address] PATHOLOGIST PROBATE CLERK ELPIDIO DUMONT M.D. Performed By: #### H S TROP, CK #### [facility] [address] [place] [address] [place] Partial Thromboplastin Timeo n 04-10-2023 aPTT Coag (Bld) [Time] 26.1 s Normal 25.1-36.5 [facility] Comment on above: Result Comment: A he matocrit value greater than 55% may lead to inaccurate results in coagulation testing. Patients having hematocrit values >55% require a special collection tube for coagulation studies. Please contact the laboratory at [phone] for redraw instructions. PERFORMED BY: [place] [address] PATHOLOGIST PROBATE CLERK ELPIDIO DUMONT M.D. Performed By: #### G LULS #### Point of Care testing , Prothrombin Time INRon 04-10 INR Coag (PPP) [Relative time] 1.0 {INR} Normal [facility] Comment on above: Result Comment: INR [...] Coag (PPP) [Time] 12.1 s Normal 9.0-12.9 [facility] Comment on above: Result Comment: A he matocrit value greater than 55% may lead to inaccurate results in coagulation testing. Patients having hematocrit values >55% require a special collection tube for coagulation studies. Please contact the laboratory at [phone] for redraw instructions. Performed By: #### G LULS #### Point of Care testing , Troponin I High Sensitivityo n 04-10-2023 Troponin I High Sensitivity 1613.1 pg/mL Off scale high 0.0-15.0 [facility] Comment on above: Result Comment: Crit ical Result : Called to and read back by: TRE NASH at: 04/10/2023 18:42:30 by:DC PERFORMED BY: [phone] PATHOLOGIST PROBATE CLERK ELPIDIO DUMONT M.D. Performed By: #### G LULS #### Point of Care testing , Troponin I High Sensitivity 1083.2 pg/mL Off scale high 0.0-15.0 [facility] Comment on above: Result Comment: Crit ical Result : Called to and read back by: TRE NASH at: 04/10/2023 16:30:31 by:DC PERFORMED BY: [phone] PATHOLOGIST PROBATE CLERK ELPIDIO DUMONT M.D. Performed By: #### H S TROP, CK #### [address] Troponin I High Sensitivity 899.4 pg/mL Off scale high 0.0-15.0 [facility] Comment on above: Result Comment: PERF ORMED BY: [place] [phone] PATHOLOGIST PROBATE CLERK ELPIDIO DUMONT M.D. Performed By: #### H S TROP, CK #### [facility] [address] [place] [address] [place] XR chest 2V*on 04-10-2023 XR chest 2V* [facility] Main [place] [address] [place] [address] XRay Report Signed Patient: Lorraine Mitchell MR#: [id number] 93 : 1975 Acct:[id number] Age/Sex: 47 / F ADM Date: 04/10/23 Loc: Room: [address] [place] [address] Type: ADM IN Attending Dr: Florentino Kenyon [...] Ralf Kelly M.D.04/10/2023 3:17 PM Dictation Location: [place] [address] Transcribed By: [facility] 04/10/23 1517 Dictated By: Ralf Kelly II, MD 04/10/23 1515 Signed By: 04/10/23 1517 [facility] FREE T4on 01-04-2022 Free T4 [Mass/Vol] 0.91 ng/dL Normal 0.76-1.46 [facility] Comment on above: Performed By: #### F T4 #### [facility] [address] [place] [address] Dr. Jane Alexis LAB TESTINGon 01-04-2022 RECV HEADER SEE SCANNED REPORT IN HPF [facility] Comment on above: Performed By: #### M ISC #### [facility] [address] [place] [address] Dr. Jane Alexis REV FROM REF LAB 01/05/22 [facility] Comment on above: Performed By: #### M ISC #### [facility] [address] [place] [address] Dr. Jane Alexis SENT TO REF LAB 01/04/22 [facility] Comment on above: Performed By: #### M ISC #### [facility] [address] [place] [address] [address] Jane Alexis TSHon 01-04-2022 TSH 2.294 uIU/mL Normal 0.358-3.740 [facility] Comment on above: Performed By: #### T #### [facility] [address] [place] [address] [address] Jane Alexis Physician Referralon 021 Physician Referral [id number] Normal [facility] Vital Signs Date Time Vital Sign Value Performing Clinician Facility 07-24-2023 09:16-0500 Body height 165.1 cm MD Shilpa Lewis Work Phone: [facility] 07-24-2023 09:16-0500 Body mass index (BMI) [Ratio] 31.8 kg/m2 MD Shilpa Lewis Work Phone: [facility] 07-24-2023 09:16-0500 Body weight 86.63 kg MD Shilpa Lewis Work Phone: [facility] 07-24-2023 09:16-0500 Diastolic blood pressure 82 mm[Hg] MD Shilpa Lewis Work Phone: [facility] 07-24-2023 09:16-0500 Heart rate 80 /min MD Shilpa Lewis Work Phone: [facility] 07-24-2023 09:16-0500 Respiratory rate 18 /min MD Shilpa Lewis Work Phone: [facility] 07-24-2023 09:16-0500 SaO2% (BldA) [Mass fraction] 97 % MD Shilpa Lewis Work Phone: [facility] 07-24-2023 09:16-0500 Systolic blood pressure 126 mm[Hg] MD Shilpa Lewis Work Phone: [facility] 07-11-2023 15:46-0500 Body height 165.1 cm Nelida Ambrosio NP Work Phone: [facility] 07-11-2023 15:46-0500 Body mass index (BMI) [Ratio] 31.68 kg/m2 Nelidamakayla Haydenholz UTILITY REPAIRER Work Phone: [facility] 07-11-2023 15:46-0500 Body temperature 97.39 [degF] Nelida Haydenholz UTILITY REPAIRER Work Phone: [facility] 07-11-2023 15:46-0500 Body weight 86.36 kg Nelida Nandahholz UTILITY REPAIRER Work Phone: [facility] 07-11-2023 15:46-0500 Diastolic blood pressure 78 mm[Hg] Nelida Aichholz UTILITY REPAIRER Work Phone: [facility] 07-11-2023 15:46-0500 Heart rate 96 /min Nelida Nandahholz UTILITY REPAIRER Work Phone: [facility] 07-11-2023 15:46-0500 Respiratory rate 18 /min Nelida Nandahholz UTILITY REPAIRER Work Phone: [facility] 07-11-2023 15:46-0500 SaO2% (BldA) [Mass fraction] 97 % Nelida Nandahholz UTILITY REPAIRER Work Phone: [facility] 07-11-2023 15:46-0500 Systolic blood pressure 118 mm[Hg] Nelida Jackelynholz UTILITY REPAIRER Work Phone: [facility] 05-01-2023 11:40-0500 Body height 165.1 cm Stephanie Sweet Other [facility] 05-01-2023 11:40-0500 Body mass index (BMI) [Ratio] 31.95 kg/m2 Stephanie Sweet Other [facility] [facility] Other 05-01-2023 11:40-0500 Body weight 87.09 kg Stephanie Sweet Other [facility] Other 05-01-2023 11:40-0500 Body weight 87.08 kg MD Shilpa Lewis Work Phone: [facility] 05-01-2023 11:40-0500 Diastolic blood pressure 82 mm[Hg] Stephanie Trammelloroge Other [facility] 05-01-2023 11:40-0500 Respiratory rate 20 /min Stephanie Sweet Other [facility] [employer] Other 05-01-2023 11:40-0500 SaO2% (BldA) [Mass fraction] 96 % Stephanie Sweet Other [facility] [employer] Other 05-01-2023 11:40-0500 Systolic blood pressure 136 mm[Hg] Stephanie Trammelloroge Other [facility] 04-12-2023 11:44-0500 Body temperature 98.7 [degF] MD Shilpa Lewis Work Phone: [facility] 04-12-2023 11:44-0500 Diastolic blood pressure 69 mm[Hg] MD Shilpa Lewis Work Phone: [facility] 04-12-2023 11:44-0500 Heart rate 82 /min MD Shilpa Lewis Work Phone: [facility] 04-12-2023 11:44-0500 Respiratory rate 18 /min MD Shilpa Lewis Work Phone: [facility] 04-12-2023 11:44-0500 SaO2% (BldA) [Mass fraction] 95 % MD Shilpa Lewis Work Phone: [facility] 04-12-2023 11:44-0500 Systolic blood pressure 113 mm[Hg] MD Shilpa Lewis Work Phone: [facility] 04-12-2023 06:00-0500 Body weight 88.7 kg MD Shilpa Lewis Work Phone: [facility] 04-12-2023 04:33-0500 Inhaled oxygen concentration 21 % MD Shilpa Lewis Work Phone: [facility] 04-10-2023 10:18-0500 Body height 165.1 cm MD Shilpa Lewis Work Phone: [facility] Encounters Encounter Date Encounter Type Care Provider Facility Start: 07-24-2023 End: 07-24-2023 ambulatory MD Shilpa Lewis Work Phone: [facility] Work Phone: Start: 07-24-2023 End: 07-24-2023 Patient encounter procedure MD Shilpa Lewis Work Phone: [facility] Work Phone: Start: 07-12-2023 End: 07-12-2023 ambulatory Stephanie Kee Facility:[facility] Start: 07-12-2023 End: 07-12-2023 ambulatory MD Shilpa Lewis Work Phone: [facility] Work Phone: Start: 07-12-2023 End: 07-12-2023 Patient encounter procedure MD Shilpa Lewis Work Phone: [facility] Work Phone: Start: 07-11-2023 End: 07-11-2023 ambulatory NELIDA AMBROSIO Not Available Start: 07-11-2023 End: 07-11-2023 Office outpatient visit 25 minutes Nelida Ambrosio UTILITY REPAIRER Work Phone: [facility] Comment on above: Type 2 diabetes gerald itus with hyperglycemia, without long-term current use of insulin (CMS/HCC) (Primary Dx); Obesity with body mass index (BMI) of 30.0 to 39.9; Tobacco user; Essential (primary) hypertension (CMS/HCC); Acute heart failure, unspecified heart failure type (CMS/HCC); Anxiety Start: 07-11-2023 Bamboo flowsheet Nelida Ambrosio UTILITY REPAIRER Work Phone: [facility] Start: 07-11-2023 Bamboo flowsheet Nelida Ambrosio UTILITY REPAIRER Work Phone: [facility] Start: 07-06-2023 Clinisync Result Encounter Nelida Ambrosio UTILITY REPAIRER Work Phone: [facility] Unsolicited Start: 07-06-2023 Clinisync Result Encounter Nelida Ambrosio UTILITY REPAIRER Work Phone: [facility] Unsolicited Start: 06-11-2023 End: 06-11-2023 ambulatory Stephanie Sweet Other [employer] [facility] Other Start: 06-11-2023 Telephone encounter Stephanie LUBIN G Ship Officer Start: 06-10-2023 End: 06-10-2023 ambulatory Stephanie Sweet Other [facility] Other Start: 06-10-2023 Telephone encounter Stephanie LUBIN G Cardiology Start: 05-20-2023 End: 05-20-2023 ambulatory NELIDA AMBROSIO Not Available Start: 05-08-2023 End: 05-08-2023 ambulatory Stehpanie Kee Other [facility] Other Start: 05-08-2023 Telephone encounter Stephanie LUBIN G Cardiology Start: 05-01-2023 End: 05-01-2023 ambulatory Stephanie Sweet Other [facility] [facility] Other Start: 05-01-2023 Office outpatient vi sit 25 minutes Stephanie Sweet [facility] Start: 05-01-2023 End: 05-01-2023 Patient encounter procedure MD Shilpa Lewis Work Phone: [facility] Work Phone: Start: 04-10-2023 End: 04-12-2023 Evaluation and management of inpatient Alaa Alahmad Facility:[facility] Start: 04-10-2023 End: 04-12-2023 Evaluation and management of inpatient MD Shilpa Lewis Work Phone: [facility] [place] [facility] Work Phone: Start: 01-04-2022 End: 01-05-[address] SHILPA LEWIS Facility:H1 Procedures Date Procedure Procedure Detail Performing Clinician Start: 07-06-2023 ALL LIPID PROFILE (FASTING) Nelida Ambrosio UTILITY REPAIRER Work Phone: Start: 07-06-2023 [facility] ALT Nelida Shon lindsay UTILITY REPAIRER Work Phone: Start: 07-06-2023 [facility] AST Nelida lindsay UTILITY REPAIRER Work Phone: Start: 04-11-2023 MD Shilpa Lewis [...] Lewis Work Phone: Start: 09-19-2020 Mammography Nelida lindsay UTILITY REPAIRER Work Phone: Start: 10-12-2015 General examination of patient Stephanie Sweet Other Viral screening Stephanie cullen Other Plan of Treatment Date Care Activity Detail Author Start: 09-27-2025 [facility] Start: 09-09-2023 End: 09-09-2023 Patient encounter procedure 09/09/2023 3:40 PM EDT Office Visit [facility] [address] [place] [address] Nelida Ambrosio NP [address] [place] [phone] [facility] Start: 08-02-2023 Hemoglobin A1c measurement Diabetes: Hemoglobin A1C [facility] Start: 08-02-2023 Screening for malign ant neoplasm of breast Mammogram [facility] Comment on above: Postponed from 09/19 (Other Medical Reasons) Start: 07-11-2023 End: 07-11-2023 Patient encounter procedure 07/11/2023 3:40 PM EST Office Visit [facility] [address] [place] [phone] Nelida Ambrosio, UTILITY REPAIRER [address] [place] [phone] [facility] Start: 04-12-2023 [facility] Start: 04-10-2023 Hospital admission [facility] Start: 04-10-2023 Sleep disorder assessment [facility] Start: 02-01-2023 Influenza vaccination Influenza Vacc ine (#1) [facility] Start: 11-14-1995 Screening for malign ant neoplasm of cervix Pap Smear [facility] Start: 1993 Urine screening for protein Diabetes: Urine Protein Screening [facility] Start: 1984 Glaucoma screening Diabetes: R etinopathy Screening [facility] Start: 1975 Screening for malign ant neoplasm of colon [facility] Patient Education Coronary Angio plasty (DC) Coronary Stenting (DC) Angina (DC) Chest Pain (DC) Coronary Artery Disease (DC) Coronary artery disease in women Drug Eluting Stents [facility] Work Phone: Patient referral [facility] Work Phone: Payers Date Payer Category Payer Private Health Insurance [facility] [id number] 2023 Self-pay [id number] 2019 Private Health Insurance [employer] C IGNA [id number] 2019-Present [address] [place] [id number] 1975 Unknown [id number] 1975 Unknown [id number] 1975 Unknown [id number] 1960 Private Health Insurance [facility] [id number] Unknown [id number] Unknown [id number] Social History Date Type Detail Facility Start: 04-11-2023 End: 07-24-2023 Tobacco smoking status WVIS Smoker (finding) [facility] Start: 1975 Sex Assigned At Female F [facility] Start: 05-20-2023 End: 07-11-2023 Sex Assigned At [facility] Start: 05-20-2023 Tobacco smoking stat [facility] Smokes tobacco daily [facility] History of [...] 05-20-2023 Alcohol Comment Pepsi:2 cups daily N [facility] Start: 1975 Sex Assigned At Not on file N [facility] Medical Equipment Procedure Code Equipment Code Equipment Origin al Text Equipment Identifier Dates CL STENT GARTH FRONTIER 3.5 X 15 FDA Start: 04-11-2023 USE 1 A DAY [id number] Start: 04-17-2023 USE 1 DAILY [id number] Start: 04-17-2023 CL STENT GARTH FRONTIER 3.5 X 15 FDA Start: 04-11-2023 CL STENT GARTH FRONTIER 3.5 X 15 FDA Start: 04-11-2023 Goals Date Patient Goal Desired Activity /State Functional Status Date Assessment Result Facility 04-12-2023 Functional status Patient at Baseline [facility] Work Phone: Mental Status Date Assessment Result Facility 04-12-2023 Cognitive function Cognitive Sta tus Patient at Baseline [facility] Work Phone: Clinical Notes 04-10-2023 [...] hyperglycemia, without long-term current use of insulin ([facility]) Will add farxiga 5mg daily, pt reports she just called cardiology they stated that would be fine to start #3 boxes for Farxiga 10mg given instructions are 1/2 pill daily, lot # [id number] Echo tomorrow Equine Vet on 07/24 Sleep study 07/22 Pt asking [...] no compliance problems. Hypertensive end-organ damage includes CAD/DC, heart failure and left ventricular hypertrophy. Diabetes [...] Medical History: Diagnosis Date Acute heart failure ([facility]) 05/09/2023 Acute hemorrhoid Anxiety 05/09/2023 Aphthous ulcer Cold sore Coronary artery disease involving [place] coronary artery of [place] heart with angina pectoris ([facility]) 05/09/2023 COVID-19 viremia Depression ([facility]) Diastasis recti Essential (primary) hypertension ([facility]) 05/09/2023 Eustachian salpingitis, left Hypertriglyceridemia ([facility]) hypertriglycerides Hypothyroidism (acquired) ([facility]) 05/09/2023 Left ankle swelling Mixed hyperlipidemia ([facility]) 05/09/2023 Obesity with body mass index (BMI) of 30.0 to 39.9 07/11/2023 PIPPA (obstructive sleep apnea) 05/08/2023 Right ovarian cyst Right-sided Ap's palsy Sinusitis, bacterial Toe pain, left Type 2 diabetes mellitus with hyperglycemia, without long-term current use of insulin ([facility]) 05/09/2023 Yeast infection of the vagina 04/29/2023 [...] instructions are 1/2 pill daily, lot # [id number] Essential (primary) hypertension (CMS/HCC) - Primary Acute heart failure (CMS/HCC) Continue with cardiology Has echo tomorrow Anxiety Doing ok on sertraline, we will increase buspirone to 7.5mg BID Fu in 2 months Relevant Medications busPIRone (Buspar) 7.5 MG tablet Obesity with body mass index (BMI) of 30.0 to 39.9 Tobacco user documented in this encounter [facility] 05-08-2023 Evaluation note Encounter Date Diagnosis Assessment Notes May, Ischemic cardiomyopathy (ICD-10 - I25.5) [facility] Other 11-29-2023 Evaluation note* Encounter Date Diagnosis Assessment Notes Treatment Notes Treatment Clinical Notes Apr, History of non-ST elevation myocardial infarction (NSTEMI) (ICD-10 - I25.2) Ms Mitchell is a a 47 yr old female, seen at [facility] on 04/10/2023 for NSTEMI. Cath and PCI to the LAD was successful. Unsuccessful attempt to cross the RCA lesion. HX of DM type 2, HTN, PIPPA, hyperlipidemia. ECHO 04/10/2023: EF of 25-30% with grade 1 diastolic dysfunction. Trace MR, trace TR. [facility] 04/11/2023 consistent with severe two-vessel CAD-70% proximal LAD and 100% proximal RCA. Status post PCI to proximal LAD with 3.5 x 15 mm Garth NILSA. 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 Assessment: 2v CAD s/p PCI to LAD (presented with NSTEMI) Systolic heart failure. Euvolemic Hypertension Hyperlipidemia Diabetes type 2 Active tobacco use Family history of premature CAD Morbid obesity PIPPA not compliant with CPAP Plan: - [facility] 04/11/2023 consistent with severe two-vessel CAD-70% proximal LAD and 100% proximal RCA. Status post PCI to proximal LAD with 3.5 x 15 mm Garth NILSA. 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 -Continue DAPT-aspirin 81 mg daily plus Brilinta [...] I25.5) Apr, Post PTCA (ICD-10 - Z98.61) [facility] Other 11-10-2023 Hospital Discharge instructions Additional Instructions [...] doctor or pharmacist, without first calling the systems project manager who implanted the stent. If you require [...] weight lifting, stair steppers, etc. until the systems project manager approves these activities. Check with the systems project manager on your first follow-up visit. CALL YOUR PHYSICIAN at [phone]: -If bleeding should occur from the catheter insertion site- apply pressure to the site then immediately call us. -Report any fever, redness, drainage, increased swelling, or firmness at the catheter insertion site. Some bruising or slight swelling may be present at the time of discharge. -Should arm or leg become cold, numb, white, or blue, contact the systems project manager immediately. -IF you should experience episodes of [...] is recommended. Please call Central Scheduling at [phone] to schedule your appointment.] The attending systems project manager or [facility] nurse clinician should provide you with specific instructions regarding activity, diet, medications, and further follow up for you. Follow the medication instructions provided on your discharge. If the dosages and instructions on this sheet differ from the dosage and instructions on the bottle, follow the instructions on the bottle. [facility] is not responsible for incorrect prescription information provided by the patient during their visit. Do not stop your medications without consulting your health care provider. Please take the list with you to your next doctor's appointment.[facility] Work Phone: 1(266) 897-934011-10-2023 Discharge summary Author Florentino Kenyon [facility] April 12, 2023 9:01am Note Date/Time April 12, 2023 9:01am [facility] [address] [place] [address] Discharge Summary Signed Patient: Lorraine Mitchell MR#: [id number] : 1975 Acct:[id number] Age/Sex: 47 / F Adm Date: 3 Loc: 4P Room: [address] [place] [address]: Florentino Kenyon MD Copies to: MD Shilpa Skinner MD~ Providers Date of Discharge: 11/10/23 Discharging Provider: Florentino Kenyon Primary Care Provider: [...] stented with a 3.5 x 15 mm Agrth stent at 18 john with a residual [...] doctor or pharmacist, without first calling the systems project manager who implanted the stent. If you require [...] weight lifting, stair steppers, etc. until the systems project manager approves these activities. Check with the systems project manager on your first follow-up visit. CALL YOUR PHYSICIAN at [phone]: -If bleeding should occur from the catheter insertion site- apply pressure to the site then immediately call us. -Report any fever, redness, drainage, increased swelling, or firmness at the catheter insertion site. Some bruising or slight swelling may be present at thetime of discharge. -Should arm or leg become cold, numb, white, or blue, contact the systems project manager immediately. -IF you should experience episodes of [...] is recommended. Please call Central Scheduling at [phone] to schedule your appointment.] The attending systems project manager or [facility] nurse clinician should provide you with specific instructions regarding activity, diet, medications, and further follow up for you. Follow the medication instructions provided on your discharge. If the dosages and instructions on this sheet differ from the dosage and instructions on the bottle, follow the instructions on the bottle. [facility] is not responsible for incorrect prescription [...] signed by Florentino Kenyon MD> 04/12/23 09 [facility] Work Phone: 1(147) 331-916111-09-2023 Consult note Author W Irish [facility] April 11, 2023 6:12pm Note Date/Time April 11, 2023 6 :12pm [facility] [address] [place] [address] Cardiology Consult Note Signed Patient: Lorraine Mitchell MR#: [id number] : 1975 Acct:[id number] Age/Sex: 47 / F Adm Date: 3 Loc: 4P Room: 1H0027-9 Type: ADM IN Attending Dr: Florentino Kenyon MD Copies to: MD Shilpa Skinner MD W Scott Sheldon, DO~ Cardiology HPI History of Present Illness Consult Date: 04/11/23 Reason for Consult: Non-ST elevation DC, two-vessel ASHD, ischemic cardiomyopathy HPI: Ms. Mitchell [...] alsohad premature CAD. [facility] where troponin was positive: 248-256. BNP elevated at 1327. EKG showed sinus tachycardia. Echo today shows EF of 25-30% with grade 1 diastolic dysfunction. Trace MR, trace TR. Troponin trend on arrival [phone] Catheterization was reviewed with primary systems project manager, there is appears to be athrombotic occlusion of the proximal dominant RCA, and moderate 70% disease of the proximal LAD. We will proceed with PCI of the LAD, and attempted crossing of what appears to be a thrombotic occlusion of the RCA. [facility] Medical History (Updated 04/10/23 @ 11:06 by [...] Lymph # (Auto) 3.2 3.0 (1.00-4.8) x10E3/uL [place] # (Auto) 0.4 0.5 (0.0-0.8) x10E3/uL Eos [...] 1455 Signed By: <Electronically signed by Magali Cortez, DO> 04/11/23 1812 [facility] Work Phone: 1(165) 825-853011-09-2023 Progress note Author Stephanie Sweet [facility] April 11, 2023 1:12pm Note Date/Time April 11, 2023 1 :09pm [facility] [address] [place] [address] Cardiology Progress Note Signed Patient: Lorraine Mitchell MR#: [id number] : 1975 Acct:[id number] Age/Sex: 47 / F Adm Date: 3 Loc: Room: [address] [place] [address] Type: ADM IN Attending Dr: Florentino Kenyon [...] alsohad premature CAD. Patient initially presented to [facility] where troponin was positive: 248-256. BNP elevated at 1327. EKG showed sinus tachycardia. Echo today shows EF of 25-30% with grade 1 diastolic dysfunction. Trace MR, trace TR. Interim history 04/11/2023: Troponin continues to uptrend 899-->2200. Reports minimal chest pain today. Heparin drip restarted last night. [facility] today Exam Physical Exam Vital Signs: [...] MPV Neut % (Auto) Lymph % (Auto) [place] % (Auto) Eos % (Auto) Baso % (Auto) Nucleat RBC Rel Count Neut # (Auto) Lymph # (Auto) [place] # (Auto) Eos # (Auto) Baso # [...] % (Auto) 56.6 Lymph % (Auto) 36.2 [place] % (Auto) 4.6 Eos % (Auto) 1.2 Baso % (Auto) 1.4 Nucleat RBC Rel Count 0.1 Neut # (Auto) 5.0 Lymph # (Auto) 3.2 [place] # (Auto) 0.4 Eos # (Auto) 0.1 [...] MPV Neut % (Auto) Lymph % (Auto) [place] % (Auto) Eos % (Auto) Baso % (Auto) Nucleat RBC Rel Count Neut # (Auto) Lymph # (Auto) [place] # (Auto) Eos # (Auto) Baso # [...] % (Auto) 59.4 Lymph % (Auto) 33.4 [place] % (Auto) 5.8 Eos % (Auto) 0.9 Baso % (Auto) 0.5 Nucleat RBC Rel Count 0.1 Neut # (Auto) 5.3 Lymph # (Auto) 3.0 [place] # (Auto) 0.5 Eos # (Auto) 0.1 [...] MPV Neut % (Auto) Lymph % (Auto) [place] % (Auto) Eos % (Auto) Baso % (Auto) Nucleat RBC Rel Count Neut # (Auto) Lymph # (Auto) [place] # (Auto) Eos # (Auto) Baso # [...] alsohad premature CAD. Patient initially presented to [facility] where troponin was positive: 248-256. BNP elevated at 1327. EKG showed sinus tachycardia. Echo today shows EF of 25-30% with grade 1 diastolic dysfunction. Trace MR, trace TR. Troponin trend on arrival [phone] Assessment: NSTEMI Systolic heart failure. Euvolemic Hypertension [...] signed by Stephanie Sweet MD> 04/11/23 1312 [facility] Work Phone: [phone]) 816-840411-09-2023 [facility] [facility]11-09-2023 Progress note Author Florentino Kenyon [facility] April 11, 2023 9:50am Note Date/Time April 11, 2023 9 :48am [facility] [address] [place] [address] Hospitalist Progress Note Signed Patient: Lorraine Mitchell MR#: [id number] : 1975 Acct:[id number] Age/Sex: 47 / F Adm Date: 3 Loc: Room: [address] [place] [address] Type: ADM IN Attending Dr: Florentino Kenyon [...] signed by Florentino Kenyon MD> 04/11/23 0950 [facility] Work Phone: [phone]) [phone] Consult note Author Stephanie Sweet [facility] April 10, 2023 8:00pm Note Date/Time April 10, 2023 7 :53pm [facility] [address] [place] [address] Cardiology Consult Note Signed Patient: Lorraine Mitchell MR#: [id number] : 1975 Acct:[id number] Age/Sex: 47 / F Adm Date: 3 Loc: Room: [address] [place] [address] Type: ADM IN Attending Dr: Florentino Kenyon [...] alsohad premature CAD. Patient initially presented to [facility] where troponin was positive: 248-256. BNP elevated at 1327. EKG showed sinus tachycardia. Echo today shows EF of 25-30% with grade 1 diastolic dysfunction. Trace MR, trace TR. Review of Systems Review of Systems All other systems reviewed & are negative unless noted below or in HPI [facility] Medical History (Updated 04/10/23 @ 11:06 by [...] alsohad premature CAD. Patient initially presented to [facility] where troponin was positive: 248-256. BNP elevated at 1327. EKG showed sinus tachycardia. Echo today shows EF of 25-30% with grade 1 diastolic dysfunction. Trace MR, trace TR. Troponin trend on arrival [phone] Assessment: NSTEMI Systolic heart failure. Euvolemic Hypertension Hyperlipidemia Diabetes type 2 Active tobacco use Family history of premature CAD Morbid obesity PIPPA not compliant with CPAP Recommendations: -Start heparin drip for ACS. -We will plan for [facility] tomorrow to evaluate coronaries. N.p.o. past midnight -Continue aspirin, statin, losartan 50 mg daily. Will start spironolactone and SGLT2 inhibitor after [facility]. - She will need LifeVest on discharge - Will follow. Documented By: Stephanie Sweet MD 04/10/231751 Signed By: <Electronically signed by Stephanie Sweet MD> 04/10/231999 [facility] Work Phone: [phone]) [phone] Evaluation note* Author Stephanie Sweet [facility] Authored July 24, 2023 10:10am Ms Mitchell is a a 47 yr old fe male, seen at [facility] on 04/10/2023 for NSTEMI. Cath and PCI to the LAD was successful. Unsuccessful attempt to cross the RCA lesion. HX of DM type 2, HTN, PIPPA, hyperlipidemia. ECHO 04/10/2023: EF of 25-30% with grade 1 diastolic dysfunction. Trace MR, trace TR. [facility] 04/11/2023 consistent with severe two-vessel CAD-70% proximal LAD and 100% proximal RCA. Status post PCI to proximal LAD with 3.5 x 15 mm [place] NILSA. 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 Assessment: 2v CAD s/p PCI to LAD (presented with NSTEMI) Ischemic cardiomyopathy/Systolic heart failure. Euvolemic Hypertension Hyperlipidemia Diabetes type 2 Active tobacco use Family history of premature CAD Morbid obesity IPPPA not compliant with CPAP Plan: - [facility] 04/11/2023 consistent with severe two-vessel CAD-70% proximal LAD and 100% proximal RCA. Status post PCI to proximal LAD with 3.5 x 15 mm [place] NILSA. 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 - Repeat ECHO 07/12/23 showed improved EF [...] with cardiac rehab. -Follow-up in 2 months. [facility] Work Phone: 1([phone]) 790-805811-08-2023 History and physical note Author Florentino Kenyon [facility] April 10, 2023 11:10am Note Date/Time April 10, 2023 1 1:10am [facility] [address] [place] [address] Hospitalist H&P Signed Patient: Lorraine Mitchell MR#: [id number] : 1975 Acct:[id number] Age/Sex: 47 / F Adm Date: 3 Loc: 4 Room: [address] [place] [address] Type: ADM IN Attending Dr: Florentino Kenyon [...] negative unless noted below or in HPI [facility] Medical History (Updated 04/10/23 @ 11:06 by [...] signed by Florentino Kenyon MD> 04/10/23 1110 [facility] Work Phone: Evaluation note* Diagnosis Onset Date Resolution Status Diabetes type 2, controlled acute Hyperlipidemia acute Hypertension acute Nicotine abuse acute Non-STEMI (non-ST elevated myocardial infarction) acute PIPPA (obstructive sleep apnea) acute [facility] Work Phone: Evaluation noteNo InformationNortElast[employer] Other Evaluation noteNo assessment information available [facility] Work Phone: evaluation note* Diagnosis Type 2 diabetes mellitus with hyperglycemia, without long-term current use of insulin (CMS/[facility])- Primary Obesity with body mass index (BMI) of 30.0 to 39.9 Tobacco user Tobacco use disorder Essential (primary) hypertension (CMS/HCC) Unspecified essential hypertension Acute heart failure, unspecified heart failure type ([facility]/HCC) Anxiety Anxiety state, unspecified documented in this [...] history E&M, Problem Comment : Ovarian cysts IPPPA (Wears CPAP), Problem Status : Active,, Medical [...] History cath/PCI 04/2023 Hospitalization History NSTEMI 04/2023 [facility] Other Progress note Author Stephanie Sweet [facility] April 12, 2023 2:38pm Note Date/Time April 12, 2023 2:30pm [facility] [address] [place] [address] Cardiology Progress Note Signed Patient: Lorraine Mitchell MR#: [id number] : 1975 Acct:[id number] Age/Sex: 47 / F Adm Date: 3 Loc: Room: [address] [place] [address] Type: ADM IN Attending Dr: Florentino Kenyon [...] alsohad premature CAD. Patient initially presented to [facility] where troponin was positive: 248-256. BNP [...] alsohad premature CAD. Patient initially presented to [facility] where troponin was positive: 248-256. BNP elevated at 1327. EKG showed sinus tachycardia. Echo today shows EF of 25-30% with grade 1 diastolic dysfunction. Trace MR, trace TR. Troponin trend on arrival [phone] Assessment: NSTEMI Systolic heart failure. Euvolemic Hypertension Hyperlipidemia Diabetes type 2 Active tobacco use Family history of premature CAD Morbid obesity PIPPA not compliant with CPAP Recommendations: - [facility] 04/11/2023 consistent with severe two-vessel CAD-70% proximal LAD and 100% proximal RCA. Status post PCI to proximal LAD with 3.5 x 15 mm [place] NILSA. 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 Appreciate Dr Cortez's assistance in this case. [...] she change her mind. -2-week follow-up with [facility] cardiology. Documented By: Stephanie Sweet MD 04/12/23 1129 Signed By: <Electronically signed by Stephanie Sweet MD> 04/12/23 1438 [facility] Work Phone: Reason for visit NarrativeCARDIAC REHAB REFERR[facility] [employer] Other Summary Purpose Family History Relationship Condition [...] infarction) PIPPA (obstructive sleep apnea) Chief [place] [facility] 2wks i25.2 I25.5 Chief Complaint [facility] [place] [facility] 2wks i25.2 I25.5 3 month follow up Reason for Referral Reason Cardiac rehab Diagnosis 1 Ischemic cardiomyopa thy (I25.5) Diagnosis 2 Post PTCA (Z98.61) Diagnosis 3 History of non-ST el evation myocardial infarction (NSTEMI) (I25.2) Referral Organization [facility] Referring Provider First Name Stephanie Referring Provider Last Name Kee Referring Provider Specialty Cardiovascu lar Disease Referred Organization [facility] [place], [place],[address] Referred Provider Specialty Cardiology Referral Priority Routine General Notes Cecilia Acuña 02:15:12 PM >received today, attachments made, waiting for notes to be locked Clinical Notes central scheduling f: [phone] Additional Source Comments INFORMATION SOURCE (unrecogn ized section and content) DATE CREATED AUTHOR 08/19/2020 [facility] DATE CREATED AUTHOR AUTHOR'S ORGANIZ ATION 01/08/2022 [facility] DATE CREATED AUTHOR AUTHOR'S ORGANIZ ATION 07/13/2023 [facility] EPIC DATE CREATED AUTHOR AUTHOR'S ORGANIZ ATION 07/13/2023 [facility] Care Teams (unrecognized sec tion and content) Team Status: Active Member Role Status Dates Shilpa Lewis MD Primary Care Provider Active Team Status: Inactive Member Role Status Dates Shilpa Lewis MD Primary Care Provider Active Florentino Kenyon MD Admit Provider, Attending Provider A ctive Automatic Winder Operator Relationship Specialty Start Date End Date Thom Weinberg MD [address] [place] [address] PCP - General Family Medicine 05/20/23 Nelida Ambrosio NP [address] [place] [address] Nurse Practitioner Family Medicine 04/19/23 Team Status: [...] July 12, 2023 End: July 12, 2023 Automatic Winder Operator Relationship Specialty Start Date End Date Thom Weinberg MD [address] [place] [phone] PCP - General Family Medicine 05/20/23 Nelida Ambrosio NP [address] [place] [phone] Nurse Practitioner Family Medicine 04/19/23 Automatic Winder Operator Relationship Specialty Start Date End Date Thom Weinberg MD [address] [place] [phone] PCP - General [facility] 05/20/23 Nelida Ambrosio NP [address] [place] [phone] Nurse Practitioner [facility] 04/19/23 Team Status: Inactive Member Role Status Dates Shilpa Lewis MD Primary Care Provider Active Start: July 24, 2023 End: July 24, 2023 Stephanie Sweet MD Attending Provider Active Sta rt: July 24, 2023 End: July 24, 2023 REASON FOR VISIT (unrecogniz ed section and content) [facility]: 2WKSClinical Acute Ill nessClinical Goals (unrecognized section [...] BE BASED ON THE PRIMARY CLINICAL RECORDS. [facility] [employer] [facility]. provides no warranty or guarantee of the accuracy or completeness of information in this document.
[2023-08-24 11:38] LABS: Estimated Average Glucose 171 mg/dL; Glycohemoglobin A1C 7.6 % (4.5-6.2)
[2023-08-24 12:09] LABS: Free T4 0.93 ng/dL (0.76-1.46)
[2023-08-24 12:17] LABS: Alanine Aminotransferase 37 U/L (14-59); Albumin Globulin Ratio 0.9; Albumin Level 3.6 g/dL (3.4-5.0); Anion Gap 16.7; Aspartate Amino Transferase 9 U/L (15-37); BUN Creatinine Ratio 15.1; Bilirubin Total 0.7 mg/dL (0.2-1.0); Calcium 8.8 mg/dL (8.5-10.1); Carbon Dioxide 24.6 mmol/L (21.0-32.0); Chloride 100 mmol/L (98-107); Cholesterol 153 mg/dL (<=200); Estimated GFR (African America >60 (>=60); Estimated GFR (Non-African Ame >60 (>=60); Globulin 3.8 g/dL; Glucose 155 mg/dL (74-106); HDL Cholesterol 38 mg/dL (40-60); Potassium 4.3 mmol/L (3.5-5.1); Sodium 137 mmol/L (136-145); Thyroid Stimulating Hormone 1.483 uIU/mL (0.358-3.740); Total Protein 7.4 g/dL (6.4-8.2); Triglycerides 328 mg/dL (<=150); VLDL CHOLESTEROL 65.6 mg/dL
[2023-08-24 12:31] LABS: Alkaline Phosphatase 114 U/L (46-116)
== END 2023-08-24 10:59 | disposition home or self-care (01) ==
LOC: LAB 10:59
PROVIDERS: PCP Nurse Practitioner; Visit Provider Nurse Practitioner
DX: E78.2 Mixed hyperlipidemia (principal); E11.65 Type 2 diabetes mellitus with hyperglycemia; E03.9 Hypothyroidism, unspecified
CPT/HCPCS: 36415; 80053; 80061; 83036; 84439; 84443

== ENCOUNTER 2023-11-01 13:05 | Outpatient (OUT) | payer OTHER, SELFPAY ==
--- NOTE | 2023-11-01 13:09 | MM_ITS ---
Patient Name: MIKAYLA TERRY MR#: [id number] : 1975 Exam Date: 11/01/2023 Ordering Doctor: NAYELY Ambrosio CNP RADIOLOGY REPORT PROCEDURE: MM TOMOSYNTHESIS SCREENING BI COMPARISON: MG MAMM TANO DIAG W CAD, 09/19/2020. INDICATIONS: Screening Calculator Name NCI Breast Cancer Risk Assessment Tool 5 Year Breast Cancer Risk 0.80% Lifetime Breast Cancer Risk 8.30% Personal Breast Cancer No Personal Ovarian Cancer No Treatments None Family Cancers Father with colon cancer at age 56; Sister with pancreatic cancer at age 44. LOCATION: [facility] BREAST COMPOSITION: The breasts are heterogeneously dense,which may obscure small masses. FINDINGS: DIAGNOSTIC CATEGORY 2--BENIGN FINDING: RIGHT BREAST: No significant suspicious finding. Scattered benign-appearing calcifications are present. Scattered benign-appearing lymph nodes are present. No significant change has occurred. LEFT BREAST: No significant suspicious finding. No significant change has occurred. RECOMMENDATIONS: ROUTINE MAMMOGRAM AND CLINICAL EVALUATION IN 12 MONTHS. PLEASE NOTE: A NORMAL MAMMOGRAM DOES NOT EXCLUDE THE POSSIBILITY OF BREAST CANCER. A CLINICALLY SUSPICIOUS PALPABLE LUMP SHOULD BE BIOPSIED. Dictated by: Bryant Renner M.D. on 11/07/2023 at 13:12 Approved by: Bryant Renner M.D. on 11/07/2023 at 13:21
--- OUTSIDE RECORDS SUMMARY | 2023-11-01 13:22 | XMS_ITS | CCD ---
Author Organization [facility] Care Team Providers Care Business Professor Name Role Phone DR MARIELA LEWIS Admitting Unavailable DR MARIELA LEWIS Attending Unavailable DR MARIELA LEWIS Primary Care Unavailable DR MARIELA LEWIS Consulting Unavailable MD Mariela Lewis Primary Care Provider MD Florentino Kenyon Admit Provider MD Florentino Kenyon Attending Provider [phone] Stephanie Sweet Unavailable Nelida Ambrosio NP Unavailable Thom Weinberg MD Primary Care Provider MD Mariela Lewis Primary Care Provider MD Stephanie Sweet Attending Provider [phone] Florentino Kenyon Admitting Unavailable Florentino Kenyon Attending Unavailable Mariela Lewis Primary Care Unavailable Stephanie Sweet Consulting Unavailable Stephanie Sweet Attending Unavailable Mariela Lewis Primary Care Unavailable Stephanie Sweet Admitting Unavailable NELIDA AMBROSIO Attending Unavailable NELIDA AMBROSIO Attending Unavailable NELIDA AMBROSIO Attending Unavailable MD Mariela Lewis Primary Care Provider MD Stephanie Sweet Attending Provider [phone] Medications Current Medications Medication Drug Class(es) Dates Sig (Normalized) Sig (Original) aspirin 81 mg delayed release oral tablet (12 sources) Platelet Aggregation Inhibitor, Nonsteroidal Anti-inflammatory Drug Start: 04-12-2023 take 81 mg by mouth once daily Aspirin Active 81 MG PO Daily April 12, 2023 1:00am atorvastatin 80 mg oral tablet (12 sources) HMG-CoA Reductase Inhibitor Start: 04-12-2023 End: 10-06-2023 take 80 mg by mouth once daily in the evening Atorvastatin Active 80 MG PO Every evening April 12, 2023 1:00am Blood Glucose Monitoring Suppl (True Metrix Meter) w/Device kit (4 sources) Start: 04-19-2023 Blood Glucose Monitoring Suppl (True Metrix Meter) w/Device kit USE 1 DAILY 0 04/19/2023 Active busPIRone hydrochloride 5 mg oral tablet (14 sources) Start: 07-24-2023 take 7.5 mg by mouth twice daily Buspirone Active 7.5 MG PO Twice daily July 24, 2023 10:06am Start: 07-11-2023 End: 08-10-2023 take 1 tablet by mouth in the morning busPIRone (Buspar) 7.5 MG tablet Indications: Anxiety Take 1 tablet (7.5 mg) by mouth in the morning and 1 tablet (7.5 mg) before bedtime. 60 tablet 2 07/11/2023 08/10/2023 Active Start: 06-05-2023 End: 10-06-2023 take 1 tablet by mouth twice daily Buspirone Discontinued 5 MG PO Twice daily July 23, 2023 1:00am July 24, 2023 10:07am Free[employer] tablet Orally Twice a day; Note: Source Status: Taking; Provider: Kee Brown ( ) carvedilol 6.25 mg oral tablet (12 sources) alpha-Adrenergic Raina, beta-Adrenergic Raina Start: 04-12-2023 End: 09-30-2023 take 6.25 mg by mouth twice daily at mealtime Carvedilol Active 6.25 MG PO Twice daily with meals April 12, 2023 1:00am dapagliflozin 5 mg oral tablet (6 sources) Sodium-Glucose Cotransporter 2 Inhibitor Start: 09-18-2023 take 1 tablet by mouth once daily Dapagliflozin Propanediol (Farxiga) 10 mg tablet Active 10 MG PO Daily September 18, 2023 12:00am Start: 07-24-2023 End: 09-18-2023 take 1 tablet by mouth once daily in the morning Dapagliflozin Propanediol (Farxiga) 5 mg tablet Active 10 MG PO Every morning September 18, 2023 3:45pm take 5 mg by mouth i n the morning dapagliflozin (Farxiga) 5 MG Indications: Heart Failure , Type 2 Diabetes Mellitus Take 5 mg by mouth in the morning. 0 Active hydrocortisone acetate 25 mg rectal suppository (1 source) Corticosteroid Start: 09-18-2023 Hydrocortisone Acetate Active 25 MG FL Daily September 18, 2023 12:00am isopropyl alcohol 0.7 ml/ml medicated pad (4 sources) Start: 04-17-2023 Alcohol Swabs ([facility] Alcohol Prep Pads) 70 % pads USE 1 PER DAY 0 04/17/2023 Active 24 hr isosorbide mononitrate 30 mg extended release oral tablet (10 sources) Nitrate Vasodilator Start: 07-23-2023 take 1 tablet by mouth once daily in the morning Isosorbide Mononitrate Active 30 MG PO Daily July 23, 2023 1:00am FreeTextSi tablet in the morning Orally Once [...] Active levothyroxine sodium 0.025 mg oral tablet (9 sources) l-Thyroxine Start: 05-29-2023 End: 10-06-2023 take 25 ug by mouth once daily Levothyroxine Active 25 MCG PO Daily September 18, 2023 12:00am Start: 05-09-2022 take 1 tablet by juan m th once daily as needed Levothyroxine 75mcg levothyroxine 75mcg, 1 (one) Tablet daily # 90, 05/09/2022, No Refill. Active oral daily for 0 *Reorder from [facility] for eRx and Interaction Alerts* May, Not-Taking/PRN Start: 05-09-2022 take 1 tablet by juan m th once daily Levothyroxine 75mcg levothyroxine 75mcg, 1 (one) Tablet daily # 90, 05/09/2022, No Refill. Active oral daily for 0 *Reorder from [employer] for eRx and Interaction Alerts* May, Not-Taking 24 hr metFORMIN hydrochloride 500 mg extended release oral tablet (14 sources) Biguanide Start: 07-24-2023 take 1000 mg by mouth twice daily Metformin Active 1000 MG PO Twice daily July 24, 2023 10:06am Start: 05-20-2023 End: 10-06-2023 take 2 tablets by mouth in the morning metFORMIN (Glucophage) 500 MG tablet Indications: Type 2 diabetes mellitus with hyperglycemia, without long-term current use of insulin (CMS/[facility]) Take 2 tablets (1,000 mg) by mouth in the morning and 2 tablets (1,000 mg) in the evening. Take with meals. 360 tablet 1 07/08/2023 10/06/2023 Active Start: 04-10-2023 End: 07-24-2023 take 500 mg by mouth twice daily Metformin Discontinued 500 MG PO Twice daily April 10, 2023 1:00am July 24, 2023 10:07am Start: 04-02-2022 take 1 tablet by juan m twice daily Metformin 500mg metFORMIN 500mg, 1 (one) Tablet two times daily # 180, 04/02/2022, Ref. x3. Active oral two times daily for 0 *Reorder from [employer] for eRx and Interaction Alerts* Mar, Active 24 hr nicotine 0.583 mg/hr transdermal system (1 source) Cholinergic Nicotinic Agonist Start: 09-18-2023 apply 1 dose transdermal route once daily Nicotine Active 1 PATCH TRANSDERML Daily September 18, 2023 12:00am nitroglycerin 0.4 mg sublingual tablet (13 sources) Nitrate Vasodilator Start: 04-12-2023 End: 07-24-2023 Nitroglycerin Active 0.4 MG SUBLINGUAL Q5M 25 July 24, 2023 5:03pm do not exceed 3 doses per episode Nitroglycerin 0. 4 MG as directed Sublingual Active sacubitril 24 mg / valsartan 26 mg oral tablet (1 source) Angiotensin 2 Receptor Raina Start: 07-24-2023 take 1 tablet by mouth twice daily Sacubitril-Valsartan (Entresto) 24-26 mg tablet Active 1 TAB PO Twice daily July 24, 2023 1:00am sertraline 50 mg oral tablet (5 sources) Serotonin Reuptake Inhibitor Start: 06-04-2023 End: 10-06-2023 take 50 mg by mouth once daily Sertraline Active 50 MG PO Daily September 18, 2023 12:00am spironolactone 25 mg oral tablet (12 sources) Aldosterone Antagonist Start: 04-12-2023 take 25 mg by mouth once daily Spironolactone Active 25 MG PO Daily 30 April 12, 2023 1:00am ticagrelor 90 mg oral tablet (13 sources) Start: 04-12-2023 End: 07-24-2023 take 1 tablet by mouth twice daily Ticagrelor (Brilinta) 90 mg tablet Active 90 MG PO Twice daily 180 90 July 24, 2023 11:17am tiZANidine 4 mg oral tablet (5 sources) Central alpha-2 Adrenergic Agonist Start: 09-18-2023 Tizanidine Active 4 MG PO every 6 to 8 hours September 18, 2023 12:00am Start: 07-08-2023 End: 07-23-2023 tiZANidine (Zanaflex) 4 MG t ablet Indications: Lumbar back pain Take 1 tablet [...] two times daily for 0 Mar, Not-Taking/PRN losartan potassium 25 mg oral tablet (14 sources) Angiotensin 2 Receptor Raina Start: 07-23-2023 End: 07-24-2023 take 1 tablet by mouth once daily Losartan Discontinued 25 MG PO Daily July 23, 2023 1:00am July 24, 2023 11:16am FreeText[employer]: TAKE 1 TABLET BY MOUTH EVERY [...] MG PO Every morning April 12, 2023 1:00am July 23, 2023 10:06am Problems Active Problems Problem Classification Problem Date Documented Da te Episodic/Chronic Acute myocardial infarction (8 sources) Myocardial infarction; Translations: [Non-ST elevation (NSTEMI) myocardial infarction] Onset: 04-10-2023 04-10-2023 Chronic Anxiety disorders (10 sources) Anxiety state; Translations: [Anxiety state, unspecified] Onset: 11-19-2018 05-09-2023 Chronic Congestive heart failure; nonhypertensive (12 sources) Systolic heart failure; Translations: [Unspecified systolic (congestive) heart failure] Onset: 05-09-2023 05-09-2023 Chronic Coronary atherosclerosis and other heart disease (19 sources) History of non-ST segment elevation myocardial infarction; Translations: [Old myocardial infarction] Onset: 05-09-2023 Chronic Coronary atherosclerosis and other heart disease (5 sources) Patient post percutaneous transluminal coronary angioplasty; Translations: [Coronary angioplasty status] Episodic Diabetes mellitus with complications (11 sources) Type 2 diabetes mellitus with hyperglycemia; Translations: [Hyperglycemia due to type 2 diabetes mellitus] Onset: 01-07-2022 05-09-2023 Chronic Diabetes mellitus without complication (10 sources) Type 2 diabetes mellitus; Translations: [Type 2 diabetes mellitus without complications] Onset: 08-16-2017 04-10-2023 Chronic Diseases of mouth; excluding dental (4 sources) Recurrent aphthous stomatitis; Translations: [Recurrent oral aphthae] Episodic Disorders of lipid metabolism (14 sources) Hyperlipidemia; Translations: [Hyperlipidemia, unspecified] Onset: 10-19-2015 04-10-2023 Chronic Essential hypertension (12 sources) Hypertensive disorder; Translations: [Essential (primary) hypertension] [...] cyst, right side] Episodic Residual codes; unclassified (8 sources) Obstructive sleep apnea syndrome; Translations: [Obstructive sleep apnea (adult) (pediatric)] Onset: 05-08-2023 04-10-2023 Chronic Residual codes; unclassified (2 sources) Obstructive sleep apnea (adult) (pediatric); Translations: [Obstructive sleep apnea (adult)(pediatric)] Onset: 04-10-2023 04-12-2023 Chronic Residual codes; unclassified (6 sources) Harmful pattern of use of nicotine; Translations: [Tobacco use] Onset: 07-11-2023 04-10-2023 Episodic Residual codes; unclassified (4 sources) Tobacco user; Translations: [Tobacco use] Onset: 07-11-2023 07-11-2023 Episodic Spondylosis; intervertebral disc disorders; other back problems (4 sources) Low back pain; Translations: [Lumbar back pain] Onset: 06-06-2023 06-06-2023 Episodic Thyroid disorders (14 sources) Hypothyroidism, unspecified; Translations: [Hypothyroidism] Onset: 01-04-2022 [...] Test Name Value Interpretation Reference Range Facility [facility] echo transthoracicon [facility] echo transthoracic [facility] [place] [address] Echocardiogram Signed Patient: Lorraine Mitchell MR#: [id number] 93 : 1975 Acct:[id number] Age/Sex: 47 / F ADM Date: 07/12/23 Loc: Room: Type: [facility] Attending Dr: Stephanie Sweet MD Ordering Provider: Stephanie Sweet MD Date of Service: 07/12/2302/24/1326 [facility] echo transthoracic: History of non-ST elevation myocardial [...] V1 max: 93.0 cm/sec (0.7-1.7m/s)MV E max bhavin: 75.8 cm/sec(0.8-1.3m/s) MV A max bhavin: 87.8 cm/sec(0.0-0.0m/s) MV E/A: 0.86 (<1.5) MMode/2D Measurements Calculations RVDd: 3.3 cm FS: 18.2 % Ao root area: LVOT diam: 2.2 cm TAPSE: 1.8 cm EDV(Teich): 9.3 cm2 LVOT area: 3.8 cm2 RV S Bhavin: 134.6 ml 10.5 cm/sec ESV(Teich): 84.3 ml [...] Current ()_phl: 30.0 % LV Length ED (HM)_phl: 92.0 mmSV (HM)_phl: 79.0 ml ED Default (HM)_phl: 60.0 % LV Length ES (HM)_phl: 80.0 mm ES Default (HM)_phl: 30.0 % Transcribed By: SCV Performed At: 07/12/23 1334 Signed By: Grace Solorio MD 07/12/23 1521 [facility] ALL LIPID PROFILE (FASTING)o n 07-06-2023 CHOL HDL RATIO 3.8 [facility] Comment on above: 3.3 - 4.4 LOW RISK 4.4 - 7.1 AVERAGE RISK 7.1 - 11.0 MODERATE RISK >11.0 HIGH RISK Cholesterol [Mass/Vol] 124 mg/dL NINF - 200 mg/dL [facility] Cholesterol in HDL [Mass/Vol] 33 mg/dL Low 40 - 60 mg/dL [facility] Comment on above: > or =60 mg/dl - LOW CARDIOVASCULAR RISK <40 mg/dl - HIGH CARDIOVASCULAR RISK Magnesium [Mass/Vol] 37.0 mg/dL [facility] Comment on above: <100 mg/dl OPTIMAL 100-129 mg/dl NEAR OR ABOVE OPTIMAL 130-159 mg/dl BORDERLINE HIGH 160-189 mg/dl HIGH >190 mg/dl VERY HIGH Magnesium [Mass/Vol] 54.2 mg/dL [facility] Triglyceride [Mass/Vol] 271 mg/dL High NINF - 150 mg/dL [facility] 07-06-2023 ALT [Catalytic activity/Vol] 37 U/L 14 - 59 U/L [facility] 07-06-2023 AST [Catalytic activity/Vol] 13 U/L Low 15 - 37 U/L [facility] No Panel Informationon 07-06 Interpretation and review of laboratory results Abnormal [facility] ECG 12 lead ECGon 04-12-2023 ECG 12 lead ECG [facility] Main [place] [address] [place] [address] Electrocardiograph Report Signed Patient: Lorraine Mitchell MR#: [id number] 93 : 1975 Acct:[id number] Age/Sex: 47 / F ADM Date: 04/10/23 Loc: Room: [address] [place] [address] Type: DIS IN Attending Dr: Florentino Kenyon [...] By: MUS Signed By Darryl Kee MD 1132 [facility] Glucose Glucometer (BldC) [M ass/Vol]Ordered By: Florentino Kenyon on 04-12-2023 Glucose [Mass/Vol] 226 mg/dL [facility] Comment on above: Random Glucose Refer ence Range is dependent on time and content of last meal. Glucose of more than 200 mg/dL in a nonstressed, ambulatory subject supports the diagnosis of Diabetes Mellitus. Glucose Poct Glucometerson 1 06-12-2022 Glucose [Mass/Vol] 226 mg/dL [facility] Comment on above: Result Comment: [place] om Glucose Reference Range is dependent on time and content of last meal. Glucose of more than 200 mg/dL in a nonstressed, ambulatory subject supports the diagnosis of Diabetes Mellitus. PERFORMED BY: [place] [address] PATHOLOGIST [employer] ELPIDIO DUMONT M.D. Performed By: #### G LULS #### Point of Care testing , Glucose [Mass/Vol] 219 mg/dL Normal [facility] Comment on above: Result Comment: [facility] Glucose Reference Range is dependent on time and content of last meal. Glucose of more than 200 mg/dL in a nonstressed, ambulatory subject supports the diagnosis of Diabetes Mellitus. PERFORMED BY: [place] [address] PATHOLOGIST [employer] ELPIDIO DUMONT M.D. Performed By: #### H S TROP, CK #### [address] [address] [facility] Troponin I High Sensitivityo n 04-12-2023 Troponin I High Sensitivity 3417.1 pg/mL Off scale high 0.0-15.0 [facility] Comment on above: Result Comment: Crit ical Result : Called to and read back by: CLAYTON MCCLOUD at: 04/12/2023 06:08:29 by:[id number] PERFORMED BY: [place] [address] PATHOLOGIST [employer] ELPIDIO DUMONT M.D. Performed By: #### H S TROP, CK #### [facility] [address] [place], [place] [id number] [facility] Troponin I.cardiac [Mass/vol ume] in Serum or Plasma by Detection limit <= 0.01 ng/Ordered By: Magali Cortez on 04-12-2023 Troponin I.cardiac DL <= 0.01 ng/mL [Mass/Vol] 3417.1 pg/mL 0.0-15.0 [facility] Comment on above: Critical Result : Ca lled to and read back by: CLAYTON MCCLOUD at: 04/12/2023 06:08:29 by:[id number] Activated partial thrombopla stin time (aPTT) in platelet poor plasma by coagulation aOrdered By: Stephanie Sweet on 11-09-2023 aPTT Coag (PPP) [Time] 29.3 s 25.1-36.5 [facility] Comment on above: A hematocrit value g reater than 55% may lead to inaccurate results in coagulation testing. Patients having hematocrit values >55% require a special collection tube for coagulation studies. Please contact the laboratory at [phone] for redraw instructions. Basophils Auto (Bld) [#/Vol] Ordered By: Stephanie Sweet on 04-11-2023 Basophils (Bld) [#/Vol] 0.0 10*3/uL 0.0-0.2 [facility] Basophils/100 WBC Auto (Bld) Ordered By: Stephanie Sweet on 04-11-2023 Basophils/100 WBC (Bld) 0.5 % . [facility] Blood Urea Nitrogenon 2022 Urea nitrogen [Mass/Vol] 11 mg/dL Normal 7-25 [facility] Comment on above: Performed By: #### C REAT, BUN, CBC, LYTES #### [facility] [address] Carbon dioxide, total [Moles /volume] in Serum or PlasmaOrdered By: Stephanie Sweet on 04-11-2023 CO2 [Moles/Vol] 26.7 mmol/L 21.0-31.0 [facility] Chloride [Moles/volume] in S ambika or PlasmaOrdered By: Stephanie Sweet on 04-11-2023 Chloride [Moles/Vol] 101 mmol/L 98-107 [facility] Coagulation Profileon 2022 aPTT Coag (Bld) [Time] 29.3 s Normal 25.1-36.5 [facility] Comment on above: Result Comment: A he matocrit value greater than 55% may lead to inaccurate results in coagulation testing. Patients having hematocrit values >55% require a special collection tube for coagulation studies. Please contact the laboratory at [phone] for redraw instructions. PERFORMED BY: [facility] [address] [place] [address] PATHOLOGIST [employer] ELPIDIO DUMONT M.D. Performed By: #### H S TROP, CK #### [address] INR Coag (PPP) [Relative time] 1.0 {INR} Normal [facility] Comment on above: Result Comment: INR [...] By: #### H S TROP, CK #### [address] PT Coag (PPP) [Time] 12.0 s Normal 9.0-12.9 [facility] Comment on above: Result Comment: A he matocrit value greater than 55% may lead to inaccurate results in coagulation testing. Patients having hematocrit values >55% require a special collection tube for coagulation studies. Please contact the laboratory at [phone] for redraw instructions. Performed By: #### H S TROP CK #### [address] Complete Blood Count Auto Di ffon 04-11-2023 Basophils (Bld) [#/Vol] 0.0 10*3/uL Normal 0.0-0.2 [facility] Comment on above: Result Comment: PERF ORMED BY: [place] [address] PATHOLOGIST [employer] ELPIDIO DUMONT M.D. Performed By: #### C REAT, BUN, CBC, LYTES #### [address] Basophils/100 WBC (Bld) 0.5 % Normal . [facility] Comment on above: Performed By: #### C REAT, BUN, CBC, LYTES #### [address] Eosinophils (Bld) [#/Vol] 0.1 10*3/uL Normal 0.0-0.45 [facility] Comment on above: Performed By: #### C REAT, BUN, CBC, LYTES #### [address] Eosinophils/100 WBC (Bld) 0.9 % Normal . [facility] Comment on above: Performed By: #### C REAT, BUN, CBC, LYTES #### [address] Erythrocyte distribution width (RBC) [Ratio] 14.5 % Normal 11.9-15.3 [facility] Comment on above: Performed By: #### C REAT, BUN, CBC, LYTES #### [address] Hematocrit (Bld) [Volume fraction] 35.1 % Normal 34.0-46.4 [facility] Comment on above: Performed By: #### C REAT, BUN, CBC, LYTES #### [address] Hemoglobin (Bld) [Mass/Vol] 11.8 g/dL Normal 11.8-15.4 [facility] Comment on above: Performed By: #### C REAT, BUN, CBC, LYTES #### [address] Lymphocytes (Bld) [#/Vol] 3.0 10*3/uL Normal 1.00-4.8 [facility] Comment on above: Performed By: #### C REAT, BUN, CBC, LYTES #### [address] Lymphocytes/100 WBC (Bld) 33.4 % Normal . [facility] Comment on above: Performed By: #### C REAT, BUN, CBC, LYTES #### [address] MCH (RBC) [Entitic mass] 30.7 pg Normal 24.7-34.3 [facility] Comment on above: Performed By: #### C REAT, BUN, CBC, LYTES #### [address] MCV (RBC) [Entitic vol] 91.1 fL Normal 80-100 [facility] Comment on above: Performed By: #### C REAT, BUN, CBC, LYTES #### [address] Mean Corpuscular HGB Conc 33.7 g/dL Normal 32.0-35.0 [facility] Comment on above: Performed By: #### C REAT, BUN, CBC, LYTES #### [address] Monocytes (Bld) [#/Vol] 0.5 10*3/uL Normal 0.0-0.8 [facility] Comment on above: Performed By: #### C REAT, BUN, CBC, LYTES #### [address] Monocytes/100 WBC (Bld) 5.8 % Normal . [facility] Comment on above: Performed By: #### C REAT, BUN, CBC, LYTES #### [address] Neutrophils (Bld) [#/Vol] 5.3 10*3/uL Normal 1.8-7.7 [facility] Comment on above: Performed By: #### C REAT, BUN, CBC, LYTES #### [address] Neutrophils/100 WBC (Bld) 59.4 % Normal . [facility] Comment on above: Performed By: #### C REAT, BUN, CBC, LYTES #### [address] NRBC% 0.1 /100{WBC} Normal 0-0.5 [facility] Comment on above: Performed By: #### C REAT, BUN, CBC, LYTES #### [address] Platelet mean volume (Bld) [Entitic vol] 9.4 fL Normal 6.3-10.7 [facility] Comment on above: Performed By: #### C REAT, BUN, CBC, LYTES #### [facility] [address] Platelets (Bld) [#/Vol] 213 10*3/uL Normal 150-450 [facility] Comment on above: Performed By: #### C REAT, BUN, CBC, LYTES #### [facility] [address] RBC (Bld) [#/Vol] 3.85 10*6/uL Normal 3.60-5.00 [facility] Comment on above: Performed By: #### C REAT, BUN, CBC, LYTES #### [address] WBC (Bld) [#/Vol] 9.0 10*3/uL Normal 3.8-11.6 [facility] Comment on above: Performed By: #### C REAT, BUN, CBC, LYTES #### [address] Creatine Kinaseon 04-11-2023 CK [Catalytic activity/Vol] 186 U/L Normal [facility] Comment on above: Performed By: #### H S TROP, CK #### [facility] [address] [place] [address] CK [Catalytic activity/Vol] 242 U/L High [facility] Comment on above: Performed By: #### H S TROP, CK #### [address] Creatine kinase [Enzymatic a ctivity/volume] in Serum or PlasmaOrdered By: Florentino Kenyon on 04-11-2023 CK [Catalytic activity/Vol] 186 U/L [facility] Creatinineon 04-11-2023 Creatinine [Mass/Vol] 0.47 mg/dL Low 0.60-1.20 [facility] Comment on above: Performed By: #### H S TROP, CK #### [facility] [address] [place] [address] [place] Creatinine Clr Calc Pharmacy 166.11 [facility] Comment on above: Result Comment: PERF ORMED BY: [place] [address] PATHOLOGIST [employer] ELPIDIO DUMONT M.D. Performed By: #### H S TROP, CK #### [facility] [address] [place] [address] [place] GFR/1.73 sq M.predicted MDRD (S/P/Bld) [Vol rate/Area] mL/min/{1.73_m2} [facility] Comment on above: Performed By: #### H S TROP, CK #### [address] Creatinine [Mass/volume] in Serum or PlasmaOrdered By: Stephanie Sweet on 04-11-2023 Creatinine [Mass/Vol] 0.47 mg/dL 0.60-1.20 [facility] ECG 12 lead ECGon 04-11-2023 ECG 12 lead ECG [facility] Main [place] [address] [place] [address] Electrocardiograph Report Signed Patient: Lorraine Mitchell MR#: [id number] 93 : 1975 Acct:[id number] Age/Sex: 47 / F ADM Date: 04/10/23 Loc: Room: [address] [place] [address] Type: DIS IN Attending Dr: Florentino Kenyon [...] MARIE Signed By Darryl Kee MD 2049 Normal [facility] Electrolyteson 04-11-2023 Anion gap [Moles/Vol] 12.1 mmol/L Normal 6.0-15.0 [facility] Comment on above: Performed By: #### C REAT, BUN, CBC, LYTES #### [facility] [address] Chloride [Moles/Vol] 101 mmol/L Normal 98-107 [facility] Comment on above: Performed By: #### C REAT, BUN, CBC, LYTES #### [facility] [address] CO2 [Moles/Vol] 26.7 mmol/L Normal 21.0-31.0 [facility] Comment on above: Performed By: #### C REAT, BUN, CBC, LYTES #### [facility] [address] Potassium [Moles/Vol] 3.8 mmol/L Normal 3.5-5.1 [facility] Comment on above: Performed By: #### C REAT, BUN, CBC, LYTES #### [facility] [address] [place] [address] [place] Sodium [Moles/Vol] 136 mmol/L Normal 136-145 [facility] Comment on above: Performed By: #### C REAT, BUN, CBC, LYTES #### [facility] [address] [place] [address] [place] Eosinophils Auto (Bld) [#/Vo l]Ordered By: Stephanie Sweet on 04-11-2023 Eosinophils (Bld) [#/Vol] 0.1 10*3/uL 0.0-0.45 [facility] Eosinophils/100 WBC Auto (Bl d)Ordered By: Stephanie Sweet on 04-11-2023 Eosinophils/100 WBC (Bld) 0.9 % . [facility] Erythrocyte distribution wid th Auto (RBC) [Ratio]Ordered By: Stephanie Sweet on 04-11-2023 Erythrocyte distribution width (RBC) [Ratio] 14.5 % 11.9-15.3 [facility] Glucose Poct Glucometerson 1 06-11-2022 Glucose [Mass/Vol] 200 mg/dL Normal [facility] Comment on above: Result Comment: [place] Glucose Reference Range is dependent on time and content of last meal. Glucose of more than 200 mg/dL in a nonstressed, ambulatory subject supports the diagnosis of Diabetes Mellitus. PERFORMED BY: [address] [place] [address] PATHOLOGIST [employer] ELPIDIO DUMONT M.D. Performed By: #### G LULS #### Point of Care testing , Commemt1 Glu2: Cleaned Meter Normal [facility] Comment on above: Result Comment: PERF ORMED BY: [address] [place] [address] PATHOLOGIST [employer] ELPIDIO DUMONT M.D. Performed By: #### G LULS #### Point of Care testing , Glucose [Mass/Vol] 221 mg/dL Normal [facility] Comment on above: Result Comment: [place] Glucose Reference Range is dependent on time and content of last meal. Glucose of more than 200 mg/dL in a nonstressed, ambulatory subject supports the diagnosis of Diabetes Mellitus. Performed By: #### G LULS #### Point of Care testing , Glucose [Mass/Vol] 204 mg/dL Normal [facility] Comment on above: Result Comment: [place] Glucose Reference Range is dependent on time and content of last meal. Glucose of more than 200 mg/dL in a nonstressed, ambulatory subject supports the diagnosis of Diabetes Mellitus. PERFORMED BY: [address] [place] [address] PATHOLOGIST [employer] ELPIDIO DUMONT M.D. Performed By: #### G LULS #### Point of Care testing , Hematocrit Auto (Bld) [Volum e fraction]Ordered By: Stephanie Sweet on 04-11-2023 Hematocrit (Bld) [Volume fraction] 35.1 % 34.0-46.4 [facility] Hemoglobin [Mass/volume] in BloodOrdered By: Stephanie Sweet on 04-11-2023 Hemoglobin (Bld) [Mass/Vol] 11.8 g/dL 11.8-15.4 [facility] INR in Platelet poor plasma by Coagulation assayOrdered By: Stephanie Sweet on 04-11-2023 INR Coag (PPP) [Relative time] 1.0 {INR} [facility] Comment on above: INR Therapeutic Rang [...] RBC Auto (Bld) [#/Vol] 9.0 10*3/uL 3.8-11.6 [facility] Lymphocytes Auto (Bld) [#/Vo l]Ordered By: Stephanie Sweet on 04-11-2023 Lymphocytes (Bld) [#/Vol] 3.0 10*3/uL 1.00-4.8 [facility] Lymphocytes/100 WBC Auto (Bl d)Ordered By: Stephanie Sweet on 04-11-2023 Lymphocytes/100 WBC (Bld) 33.4 % . [facility] MCH Auto (RBC) [Entitic mass ]Ordered By: Stephanie Sweet on 04-11-2023 MCH (RBC) [Entitic mass] 30.7 pg 24.7-34.3 [facility] MCHC Auto (RBC) [Mass/Vol]Or dered By: Stephanie Sweet on 04-11-2023 MCHC (RBC) [Mass/Vol] 33.7 g/dL 32.0-35.0 [facility] MCV Auto (RBC) [Entitic vol] Ordered By: Stephanie Sweet on 04-11-2023 MCV (RBC) [Entitic vol] 91.1 fL 80-100 [facility] Monocytes Auto (Bld) [#/Vol] Ordered By: Stephanie Sweet on 04-11-2023 Monocytes (Bld) [#/Vol] 0.5 10*3/uL 0.0-0.8 [facility] Monocytes/100 WBC Auto (Bld) Ordered By: Stephanie Sweet on 04-11-2023 Monocytes/100 WBC (Bld) 5.8 % . [facility] Neutrophils Auto (Bld) [#/Vo l]Ordered By: Stephanie Sweet on 04-11-2023 Neutrophils (Bld) [#/Vol] 5.3 10*3/uL 1.8-7.7 [facility] Neutrophils/100 WBC Auto (Bl d)Ordered By: Stephanie Sweet on 04-11-2023 Neutrophils/100 WBC (Bld) 59.4 % . [facility] No Panel InformationOrdered By: Florentino Kenyon on 04-11-2023 Bedside Glucose Comment Glu2: cleaned meter [facility] No Panel InformationOrdered By: Stephanie Sweet on 04-11-2023 Estimated GFR (CKD-EPI) > 60.0 mL/Min [facility] Creatinine Clearance (Chem 166.11 [facility] Nucleated erythrocytes [Pres ence] in Blood by Automated countOrdered By: Stephanie Sweet on 04-11-2023 Nucleated RBC Auto Ql (Bld) 0.1 /100{WBC} 0-0.5 [facility] Partial Thromboplastin Timeo n 04-11-2023 aPTT Coag (Bld) [Time] 29.2 s Normal 25.1-36.5 [facility] Comment on above: Result Comment: A he matocrit value greater than 55% may lead to inaccurate results in coagulation testing. Patients having hematocrit values >55% require a special collection tube for coagulation studies. Please contact the laboratory at [phone] for redraw instructions. PERFORMED BY: [place] [address] [place] [address] PATHOLOGIST [employer] ELPIDIO DUMONT M.D. Performed By: #### H S VINAYAK, CK #### [facility] [address] Platelet mean volume Auto (B ld) [Entitic vol]Ordered By: Stephanie Sweet on 04-11-2023 Platelet mean volume (Bld) [Entitic vol] 9.4 fL 6.3-10.7 [facility] Platelets Auto (Bld) [#/Vol] Ordered By: Stephanie Sweet on 04-11-2023 Platelets (Bld) [#/Vol] 213 10*3/uL 150-450 [facility] Potassium [Moles/volume] in Serum or PlasmaOrdered By: Stephanie Sweet on 04-11-2023 Potassium [Moles/Vol] 3.8 mmol/L 3.5-5.1 [facility] Prothrombin time (PT)Ordered By: Stephanie Sweet on 04-11-2023 PT Coag (PPP) [Time] 12.0 s 9.0-12.9 [facility] Comment on above: A hematocrit value g reater than 55% may lead to inaccurate results in coagulation testing. Patients having hematocrit values >55% require a special collection tube for coagulation studies. Please contact the laboratory at [phone] for redraw instructions. RBC Auto (Bld) [#/Vol]Ordere d By: Stephanie Sweet on 04-11-2023 RBC (Bld) [#/Vol] 3.85 10*6/uL 3.60-5.00 [facility] Serum or plasma anion gap de terminationOrdered By: Stephanie Sweet on 04-11-2023 Anion gap [Moles/Vol] 12.1 mmol/L 6.0-15.0 [facility] Sodium [Moles/volume] in Ser um or PlasmaOrdered By: Stephanie Sweet on 04-11-2023 Sodium [Moles/Vol] 136 mmol/L 136-145 [facility] Troponin I High Sensitivityo n 04-11-2023 Troponin I High Sensitivity 2287.4 pg/mL Off scale high 0.0-15.0 [facility] Comment on above: Result Comment: Crit ical Result : Called to and read back by: LILLY GRAY at: 04/11/2023 12:03:27 by:LISS PERFORMED BY: [place] [address] PATHOLOGIST [employer] ELPIDIO DUMONT M.D. Performed By: #### H S TROP, CK #### [address] Troponin I High Sensitivity 2115.2 pg/mL Off scale high 0.0-15.0 [facility] Comment on above: Result Comment: Crit ical Result : Called to and read back by: CLAYTON REDMAN at: 04/11/2023 00:13:42 by:AUGUSTO PERFORMED BY: [place] [address] PATHOLOGIST [employer] ELPIDIO DUMONT M.D. Performed By: #### H S TROP, CK #### [place] [id number] [facility] Urea nitrogen [Mass/volume] in Serum or PlasmaOrdered By: Stephanie Sweet on 04-11-2023 Urea nitrogen [Mass/Vol] 11 mg/dL 7-25 [facility] WBC Auto (Bld) [#/Vol]Ordere d By: Stephanie Sweet on 04-11-2023 WBC (Bld) [#/Vol] 9.0 10*3/uL 3.8-11.6 [facility] Complete Blood Count Auto Di ffon 04-10-2023 Basophils (Bld) [#/Vol] 0.1 10*3/uL Normal 0.0-0.2 [facility] Comment on above: Result Comment: PERF ORMED BY: [place] [address] PATHOLOGIST [employer] ELPIDIO DUMONT M.D. Performed By: #### H S TROP, CK #### [place] [id number] [place] Basophils/100 WBC (Bld) 1.4 % Normal . [facility] Comment on above: Performed By: #### H S TROP, CK #### [facility] [address] [place] [address] [place] Eosinophils (Bld) [#/Vol] 0.1 10*3/uL Normal 0.0-0.45 [facility] Comment on above: Performed By: #### H S TROP, CK #### [facility] [address] [place] [address] [place] Eosinophils/100 WBC (Bld) 1.2 % Normal . [facility] Comment on above: Performed By: #### H S TROP, CK #### [facility] [address] Erythrocyte distribution width (RBC) [Ratio] 14.1 % Normal 11.9-15.3 [facility] Comment on above: Performed By: #### H S TROP, CK #### [facility] [address] Hematocrit (Bld) [Volume fraction] 36.0 % Normal 34.0-46.4 [facility] Comment on above: Performed By: #### H S TROP, CK #### [facility] [address] [place] [address] [place] Hemoglobin (Bld) [Mass/Vol] 12.2 g/dL Normal 11.8-15.4 [facility] Comment on above: Performed By: #### H S TROP, CK #### [facility] [address] [place] [address] [place] Lymphocytes (Bld) [#/Vol] 3.2 10*3/uL Normal 1.00-4.8 [facility] Comment on above: Performed By: #### H S TROP, CK #### [facility] [address] [place] [address] [place] Lymphocytes/100 WBC (Bld) 36.2 % Normal . [facility] Comment on above: Performed By: #### H S TROP, CK #### [facility] [address] MCH (RBC) [Entitic mass] 30.7 pg Normal 24.7-34.3 [facility] Comment on above: Performed By: #### H S TROP, CK #### [facility] [address] MCV (RBC) [Entitic vol] 90.9 fL Normal 80-100 [facility] Comment on above: Performed By: #### H S TROP, CK #### [facility] [address] Mean Corpuscular HGB Conc 33.8 g/dL Normal 32.0-35.0 [facility] Comment on above: Performed By: #### H S TROP, CK #### [facility] [address] Monocytes (Bld) [#/Vol] 0.4 10*3/uL Normal 0.0-0.8 [facility] Comment on above: Performed By: #### H S TROP, CK #### [facility] [address] Monocytes/100 WBC (Bld) 4.6 % Normal . [facility] Comment on above: Performed By: #### H S TROP, CK #### [facility] [address] [place] [address] [place] Neutrophils (Bld) [#/Vol] 5.0 10*3/uL Normal 1.8-7.7 [facility] Comment on above: Performed By: #### H S TROP, CK #### [facility] [address] Neutrophils/100 WBC (Bld) 56.6 % Normal . [facility] Comment on above: Performed By: #### H S TROP, CK #### [facility] [address] [place] [address] [place] NRBC% 0.1 /100{WBC} Normal 0-0.5 [facility] Comment on above: Performed By: #### H S TROP, CK #### [facility] [address] Platelet mean volume (Bld) [Entitic vol] 9.3 fL Normal 6.3-10.7 [facility] Comment on above: Performed By: #### H S TROP, CK #### [facility] [address] Platelets (Bld) [#/Vol] 213 10*3/uL Normal 150-450 [facility] Comment on above: Performed By: #### H S TROP, CK #### [address] RBC (Bld) [#/Vol] 3.96 10*6/uL Normal 3.60-5.00 [facility] Comment on above: Performed By: #### H S TROP, CK #### [address] WBC (Bld) [#/Vol] 8.9 10*3/uL Normal 3.8-11.6 [facility] Comment on above: Performed By: #### H S TROP, CK #### [address] Creatine Kinaseon 04-10-2023 CK [Catalytic activity/Vol] 268 U/L High 30-223 [facility] Comment on above: Performed By: #### G LULS #### Point of Care testing , CK [Catalytic activity/Vol] 238 U/L High 30-223 [facility] Comment on above: Performed By: #### H S TROP, CK #### [address] CK [Catalytic activity/Vol] 210 U/L Normal 30-223 [facility] Comment on above: Performed By: #### H S TROP, CK #### [place] [address] [place] ECG 12 lead ECGon 04-10-2023 ECG 12 lead ECG [facility] Main [place] [address] [place] [address] Electrocardiograph Report Signed Patient: Lorraine Mitchell MR#: [id number] 93 : 1975 Acct:[id number] Age/Sex: 47 / F ADM Date: 04/10/23 Loc: Room: [address] [place] [address] Type: ADM IN Attending Dr: Florentino Kenyon [...] (247) on 04/11/2023 3:52:37 PM Referred By: [facility] Electronically Signed By:DARRYL KEE MD Transcribed By: [facility] Signed By Darryl Kee MD [address] [facility] echo transthoracicon [facility] echo transthoracic [facility] [place] [address] Echocardiogram Signed Patient: Lorraine Mitchell MR#: [id number] 93 : 1975 Acct:[id number] Age/Sex: 47 / F ADM Date: 04/10/23 Loc: Room: 5M6457-9 Type: ADM IN Attending Dr: Florentino Kenyon MD Ordering Provider: Florentino Kenyon MD Date of Service: 04/10/2301/23/1057 [facility] echo transthoracic: NSTMI Copies to: MD Grace [...] cm(2.1-3.4cm) Doppler with Normals MV E max bhavin: 115.0 cm/sec(0.8-1.3m/s) MV A max bhavin: 33.9 cm/sec (0.0-0.0m/s) MV E/A: 3.4 (<1.5) MMode/2D Measurements Calculations RVDd: 2.6 cm RV Base: 4.2 cm FS: 14.0 % Ao root area: TAPSE: 1.6 cm RV Mid: 2.8 cm EDV(Teich): 7.1 cm2 RV S Bhavin: RV Length: 8.1 cm 223.7 ml 9.4 [...] E/E' lat: MV dec slope: MR max bhavin: 34.0 mmHg 7.7 292.6 cm/sec E/E' med: 207.0 cm/sec2 MR max P.2 mmHg 9.6 __ RAP systole: 5.0 mmHg Transcribed By: SCV Performed At: 04/10/23 1204 Signed By: Grace Solorio MD 04/10/23 1309 [facility] Glucose Poct Glucometerson 06-10-2022 Glucose [Mass/Vol] 201 mg/dL [facility] Comment on above: Result Comment: [place] Glucose Reference Range is dependent on time and content of last meal. Glucose of more than 200 mg/dL in a nonstressed, ambulatory subject supports the diagnosis of Diabetes Mellitus. PERFORMED BY: [place] [address] PATHOLOGIST [employer] ELPIDIO DUMONT M.D. Performed By: #### G EMILIA #### Point of Care testing , Glucose [Mass/Vol] 214 mg/dL Normal [facility] Comment on above: Result Comment: [place] om Glucose Reference Range is dependent on time and content of last meal. Glucose of more than 200 mg/dL in a nonstressed, ambulatory subject supports the diagnosis of Diabetes Mellitus. PERFORMED BY: [place] [address] PATHOLOGIST [employer] ELPIDIO DUMONT M.D. Performed By: #### H S TROP, CK #### [address] Glucose [Mass/Vol] 196 mg/dL Normal [facility] Comment on above: Result Comment: [place] Glucose Reference Range is dependent on time and content of last meal. Glucose of more than 200 mg/dL in a nonstressed, ambulatory subject supports the diagnosis of Diabetes Mellitus. PERFORMED BY: [place] [address] PATHOLOGIST [employer] ELPIDIO DUMONT M.D. Performed By: #### H S TROP, CK #### [address] Partial Thromboplastin Timeo n 04-10-2023 aPTT Coag (Bld) [Time] 26.1 s Normal 25.1-36.5 [facility] Comment on above: Result Comment: A he matocrit value greater than 55% may lead to inaccurate results in coagulation testing. Patients having hematocrit values >55% require a special collection tube for coagulation studies. Please contact the laboratory at [phone] for redraw instructions. PERFORMED BY: [address] [place] [address] PATHOLOGIST [employer] ELPIDIO DUMONT M.D. Performed By: #### G LULS #### Point of Care testing , Prothrombin Time INRon 04-10 INR Coag (PPP) [Relative time] 1.0 {INR} Normal [facility] Comment on above: Result Comment: INR [...] Coag (PPP) [Time] 12.1 s Normal 9.0-12.9 [facility] Comment on above: Result Comment: A he matocrit value greater than 55% may lead to inaccurate results in coagulation testing. Patients having hematocrit values >55% require a special collection tube for coagulation studies. Please contact the laboratory at [phone] for redraw instructions. Performed By: #### G LULS #### Point of Care testing , Troponin I High Sensitivityo n 04-10-2023 Troponin I High Sensitivity 1613.1 pg/mL Off scale high 0.0-15.0 [facility] Comment on above: Result Comment: Crit ical Result : Called to and read back by: TRE NASH at: 04/10/2023 18:42:30 by:FUAD PERFORMED BY: [address] [address] PATHOLOGIST [employer] ELPIDIO DUMONT M.D. Performed By: #### G LULS #### Point of Care testing , Troponin I High Sensitivity 1083.2 pg/mL Off scale high 0.0-15.0 [facility] Comment on above: Result Comment: Crit ical Result : Called to and read back by: TRE NASH at: 04/10/2023 16:30:31 by:FUAD PERFORMED BY: [facility] [address] [address] PATHOLOGIST [employer] ELPIDIO DUMONT M.D. Performed By: #### H S TROP, CK #### [address] Troponin I High Sensitivity 899.4 pg/mL Off scale high 0.0-15.0 [facility] Comment on above: Result Comment: PERF ORMED BY: [place] [address] PATHOLOGIST [employer] ELPIDIO DUMONT M.D. Performed By: #### H S TROP, CK #### [address] XR chest 2V*on 04-10-2023 XR chest 2V* [facility] Main [place] [address] [place] [address] XRay Report Signed Patient: Lorraine Mitchell MR#: [id number] 93 : 1975 Acct:[id number] Age/Sex: 47 / F ADM Date: 04/10/23 Loc: Room: [address] [place] [address] Type: ADM IN Attending Dr: Florentino Kenyon [...] Ralf Kelly M.D.04/10/2023 3:17 PM Dictation Location: [place] [address] Transcribed By: AP 04/10/23 151 Dictated By: Ralf Kelly II, MD 04/10/23 1515 Signed By: 04/10/23 1517 Normal [facility] FREE T4on 01-04-2022 Free T4 [Mass/Vol] 0.91 ng/dL Normal 0.76-1.46 [facility] Comment on above: Performed By: #### F T4 #### [facility] [address] [place] [address] Dr. Jane Alexis LAB TESTINGon 01-04-2022 RECV HEADER SEE SCANNED REPORT IN [facility] Comment on above: Performed By: #### M ISC #### [facility] [address] [place] [address] Dr. Jane Alexis REV FROM REF LAB 01/05/22 [facility] Comment on above: Performed By: #### M ISC #### [facility] [address] [place] [address] Dr. Jane Alexis SENT TO REF LAB 01/04/22 [facility] Comment on above: Performed By: #### M ISC #### [facility] [address] [place] [address] Dr. Jane Alexis TSHon 01-04-2022 TSH 2.294 uIU/mL Normal 0.358-3.740 [facility] Comment on above: Performed By: #### T SH #### [facility] [address] [place] [address] Dr. Jane Alexis Physician Referralon 021 Physician Referral [id number] Normal [facility] Vital Signs Date Time Vital Sign Value Performing Clinician Facility 09-18-2023 15:52-0400 Body height 165.1 cm MD Mariela Lewis Work Phone: [facility] 09-18-2023 15:52-0400 Body mass index (BMI) [Ratio] 31.4 kg/m2 MD Mariela Lewis Work Phone: [facility] 09-18-2023 15:52-0400 Body weight 85.72 kg MD Mariela Lewis Work Phone: [facility] 09-18-2023 15:52-0400 Diastolic blood pressure 68 mm[Hg] MD Mariela Lewis Work Phone: [facility] 09-18-2023 15:52-0400 Heart rate 76 /min MD Mariela Lewis Work Phone: [facility] 09-18-2023 15:52-0400 Respiratory rate 18 /min MD Mariela Lewis Work Phone: [facility] 09-18-2023 15:52-0400 SaO2% (BldA) [Mass fraction] 96 % MD Mariela Lewis Work Phone: [facility] 09-18-2023 15:52-0400 Systolic blood pressure 122 mm[Hg] MD Mariela Lewis Work Phone: [facility] 07-24-2023 09:16-0500 Body height 165.1 cm MD Mariela Lewis Work Phone: [facility] 07-24-2023 09:16-0500 Body mass index (BMI) [Ratio] 31.8 kg/m2 MD Mariela Lewis Work Phone: [facility] 07-24-2023 09:16-0500 Body weight 86.63 kg MD Mariela Lewis Work Phone: [facility] 07-24-2023 09:16-0500 Diastolic blood pressure 82 mm[Hg] MD Mariela Lewis Work Phone: [facility] 07-24-2023 09:16-0500 Heart rate 80 /min MD Mariela Lewis Work Phone: [facility] 07-24-2023 09:16-0500 Respiratory rate 18 /min MD Mariela Lewis Work Phone: [facility] 07-24-2023 09:16-0500 SaO2% (BldA) [Mass fraction] 97 % MD Mariela Lewis Work Phone: [facility] 07-24-2023 09:16-0500 Systolic blood pressure 126 mm[Hg] MD Mariela Lewis Work Phone: [facility] 07-11-2023 15:46-0500 Body height 165.1 cm Nelida Daily NUTRITIONIST [employer] Work Phone: [facility] 07-11-2023 15:46-0500 Body mass index (BMI) [Ratio] 31.68 kg/m2 Nelida Eraz N[employer]ITIONIST [employer] Work Phone: [facility] 07-11-2023 15:46-0500 Body temperature 97.39 [degF] Nelida Nandahyez NUTRITIONIST [employer] Work Phone: [facility] 07-11-2023 15:46-0500 Body weight 86.36 kg Nelida Eraz NUTRITIONIST [employer] Work Phone: [facility] 07-11-2023 15:46-0500 Diastolic blood pressure 78 mm[Hg] Nelida Aichholz NUTRITIONIST [employer] Work Phone: [facility] 07-11-2023 15:46-0500 Heart rate 96 /min Nelida Aichholz N[employer]ITIONIST [employer] Work Phone: [facility] 07-11-2023 15:46-0500 Respiratory rate 18 /min Nelida Aichholz NUTRITIONIST [employer] Work Phone: [facility] 07-11-2023 15:46-0500 SaO2% (BldA) [Mass fraction] 97 % Nelida Nandahholz NUTRITIONIST [employer] Work Phone: [facility] 07-11-2023 15:46-0500 Systolic blood pressure 118 mm[Hg] Nelida Aichholz NUTRITIONIST [employer] Work Phone: [facility] 05-01-2023 11:40-0500 Body height 165.1 cm Stephanie Sweet Other [facility] 05-01-2023 11:40-0500 Body mass index (BMI) [Ratio] 31.95 kg/m2 Stephanie Kee Other [employer] Other 05-01-2023 11:40-0500 Body weight 87.09 kg Stephanie Trammelloroge Other [employer] Other 05-01-2023 11:40-0500 Body weight 87.08 kg MD Mariela Lewis Work Phone: [facility] 05-01-2023 11:40-0500 Diastolic blood pressure 82 mm[Hg] Stephanie Kee Other [facility] 05-01-2023 11:40-0500 Respiratory rate 20 /min Stephanie Kee Other [employer] Other 05-01-2023 11:40-0500 SaO2% (BldA) [Mass fraction] 96 % Stephanie Trammelloroge Other [employer] Other 05-01-2023 11:40-0500 Systolic blood pressure 136 mm[Hg] Stephanie Kee Other [facility] 04-12-2023 11:44-0500 Body temperature 98.7 [degF] MD Mariela Lewis Work Phone: [facility] 04-12-2023 11:44-0500 Diastolic blood pressure 69 mm[Hg] MD Mariela Lewis Work Phone: [facility] 04-12-2023 11:44-0500 Heart rate 82 /min MD Mariela Lewis Work Phone: [facility] 04-12-2023 11:44-0500 Respiratory rate 18 /min MD Mariela Lewis Work Phone: [facility] 04-12-2023 11:44-0500 SaO2% (BldA) [Mass fraction] 95 % MD Mariela Lewis Work Phone: [facility] 04-12-2023 11:44-0500 Systolic blood pressure 113 mm[Hg] MD Mariela Lewis Work Phone: [facility] 04-12-2023 06:00-0500 Body weight 88.7 kg MD Mariela Lewis Work Phone: [facility] 04-12-2023 04:33-0500 Inhaled oxygen concentration 21 % MD Mariela Lewis Work Phone: [facility] 04-10-2023 10:18-0500 Body height 165.1 cm MD Mariela Lewis Work Phone: [facility] Encounters Encounter Date Encounter Type Care Provider Facility Start: 09-18-2023 End: 09-18-2023 ambulatory MD Mariela Lewis Work Phone: [facility] Work Phone: Start: 09-18-2023 End: 09-18-2023 Patient encounter procedure MD Mariela Lewis Work Phone: [facility] Work Phone: Start: 09-10-2023 End: 09-10-2023 ambulatory NELIDA DAILY Not Available Start: 07-24-2023 End: 07-24-2023 ambulatory MD Mariela Lewis Work Phone: [facility] Work Phone: Start: 07-24-2023 End: 07-24-2023 Patient encounter procedure MD Mariela Lewis Work Phone: [facility] Work Phone: Start: 07-12-2023 End: 07-12-2023 ambulatory Stephanie Sweet Facility:[facility] Start: 07-12-2023 End: 07-12-2023 ambulatory MD Mariela Lewis Work Phone: [facility] Work Phone: Start: 07-12-2023 End: 07-12-2023 Patient encounter procedure MD Mariela Lewis Work Phone: [facility] Work Phone: Start: 07-11-2023 End: 07-11-2023 ambulatory NELIDA AICHHOLZ Not Available Start: 07-11-2023 End: 07-11-2023 Office outpatient visit 25 minutes Nelida Haydenchris NUTRITIONIST PUBLIC HEALTH Work Phone: [facility] Comment on above: Type 2 diabetes gerald itus with hyperglycemia, without long-term current use of insulin ([facility]) (Primary Dx); Obesity with body mass index (BMI) of 30.0 to 39.9; Tobacco user; Essential (primary) hypertension ([facility]); Acute heart failure, unspecified heart failure type ([facility]); Anxiety Start: 07-11-2023 Bamboo flowsheet Nelida Haydenyez NUTRITIONIST PUBLIC HEALTH Work Phone: [facility] Start: 07-11-2023 Bamboo flowsheet Nelida Haydenyez NUTRITIONIST PUBLIC HEALTH Work Phone: [facility] Start: 07-06-2023 Clinisync Result Encounter Nelida Haydenyez NUTRITIONIST [facility] HEALTH Work Phone: [facility] Unsolicited Start: 07-06-2023 Clinisync Result Encounter Nelidamakayla Haydenholz NUTRITIONIST PUBLIC HEALTH Work Phone: [facility] Unsolicited Start: 06-11-2023 End: 06-11-2023 ambulatory Stephanie Sweet Other [employer] Other Start: 06-11-2023 Telephone encounter Stephanie Davis Provider Relations Advocate Start: 06-10-2023 End: 06-10-2023 ambulatory Stephanie Sweet Other [employer] Other Start: 06-10-2023 Telephone encounter Stephanie Davis Cardiology Start: 05-20-2023 End: 05-20-2023 ambulatory NELIDA AICHHOLZ Not Available Start: 05-08-2023 End: 05-08-2023 ambulatory Stephanie Sweet Other [facility] [employer] Other Start: 05-08-2023 Telephone encounter Stephanie Trammelloroge [facility] Start: 05-01-2023 End: 05-01-2023 ambulatory Stephanie Sweet Other [facility] [employer] Other Start: 05-01-2023 Office outpatient vi sit 25 minutes Stephanie Kee [facility] Start: 05-01-2023 End: 05-01-2023 Patient encounter procedure MD Mariela Lewis Work Phone: [facility] Work Phone: Start: 04-10-2023 End: 04-12-2023 Evaluation and management of inpatient Alaa Alahmad Facility:[facility] Start: 04-10-2023 End: 04-12-2023 Evaluation and management of inpatient MD Mariela Lewis Work Phone: [facility] Work Phone: Start: 01-04-2022 End: 01-05-[address] MARIELA LEWIS Facility:H1 Procedures Date Procedure Procedure Detail Performing Clinician Start: 07-06-2023 ALL LIPID PROFILE (FASTING) Nelida Aichholz NUTRITIONIST PUBLIC HEALTH Work Phone: Start: 07-06-2023 [facility] ALT Nelida Jackelynh piliz NUTRITIONIST PUBLIC HEALTH Work Phone: Start: 07-06-2023 [facility] AST Nelida Aichh olz NUTRITIONIST [facility] HEALTH Work Phone: Start: 04-11-2023 MD Mariela Lewis Work Phone: Start: 04-11-2023 CL LHC & COR Angio (Right) MD Mariela Lewis Work Phone: Start: 04-11-2023 CL PTCA 1st Vessel R CA (Right) MD Mariela Lewis Work Phone: Start: 04-11-2023 CL Stent 1st Vessel LAD NILSA (Right) MD Mariela Lewis Work Phone: Start: 04-10-2023 Plain chest X-ray MD Gentry Lweis Work Phone: Start: 09-19-2020 Mammography Nelida lindsay NP Work Phone: Start: 10-12-2015 General examination of patient Stephanie Sweet Other Viral screening Stephanie cullen Other Plan of Treatment Date Care Activity Detail Author Start: 09-27-2025 Screening for malign ant neoplasm of cervix [facility] Start: 09-09-2023 End: 09-09-2023 Patient encounter procedure 09/09/2023 3:40 PM EDT Office Visit [facility] [address] [place] [id number] Nelida Ambrosio, DANICA [address] [place] [phone] [facility] Start: 08-02-2023 Hemoglobin A1c measurement Diabetes: Hemoglobin A1C [facility] Start: 08-02-2023 Screening for malign ant neoplasm of breast Mammogram [facility] Comment on above: Postponed from 09/19 (Other Medical Reasons) Start: 07-11-2023 End: 07-11-2023 Patient encounter procedure 07/11/2023 3:40 PM EST Office Visit [facility] [address] [place] [address] Nelida Ambrosio, NUTRITIONIST PUBLIC HEALTH [address] [place] [phone] [facility] Start: 04-12-2023 [facility] Start: 04-10-2023 Hospital admission [facility] Start: 04-10-2023 Sleep disorder assessment [facility] Start: 02-01-2023 Influenza vaccination Influenza Vacc ine (#1) [facility] Start: 11-14-1995 Screening for malign ant neoplasm of cervix Pap Smear [facility] Start: 1993 Urine screening for protein Diabetes: Urine Protein Screening [facility] Start: 1984 Glaucoma screening Diabetes: R etinopathy Screening [facility] Start: 1974 Screening for malign ant neoplasm of colon [facility] Patient Education Coronary Angio plasty (DC) Coronary Stenting (DC) Angina (DC) Chest Pain (DC) Coronary Artery Disease (DC) Coronary artery disease in women Drug Eluting Stents [facility] Work Phone: Patient referral [facility] Work Phone: Payers Date Payer Category Payer Private Health Insurance [facility] [id number] 2023 Self-pay [id number] 2019 Private Health Insurance JULISSA FITZGERALD [id number] 2019-Present [address] [place] [address] [id number] 1975 Unknown [id number] 1974 Unknown [id number] 1974 Unknown [id number] 1974 Unknown [id number] 1959 Private Health Insurance [facility] [id number] Unknown [id number] Unknown [id number] Social History Date Type Detail Facility Start: 04-11-2023 End: 07-24-2023 Tobacco smoking status NHIS Smoker (finding) [facility] Start: 1975 Sex Assigned At Female F [facility] Start: 05-20-2023 End: 07-11-2023 Sex Assigned At [facility] Start: 05-20-2023 Tobacco smoking stat [facility] Smokes tobacco daily [facility] History [...] Sex Assigned At Not on file [facility] Start: 09-18-2023 [facility] Medical Equipment Procedure Code Equipment Code Equipment Origin al Text Equipment Identifier Dates CL STENT GARTH FRONTIER 3.5 X 15 FDA Start: 04-11-2023 USE 1 A DAY [id number] Start: 04-17-2023 USE 1 DAILY [id number] Start: 04-17-2023 CL STENT GARTH FRONTIER 3.5 X 15 FDA Start: 04-11-2023 CL STENT GARTH FRONTIER 3.5 X 15 FDA Start: 04-11-2023 CL STENT GARTH FRONTIER 3.5 X 15 FDA Start: 04-11-2023 Blood Sugar Diagnostic (True Metrix Glucose Test Strip) strip Start: 09-18-2023 Goals Date Patient Goal Desired Activity /State Functional Status Date Assessment Result Facility 04-12-2023 Functional status Patient at Baseline [facility] Work Phone: Mental Status Date Assessment Result Facility 04-12-2023 Cognitive function Cognitive Sta tus Patient at Baseline [facility] Work Phone: Clinical Notes 04-10-2023 to 07-24-2023 Note Date & Type Note Facility 07-24-2023 Evaluation note Authored July 24, 2023 1:06pm Ms Mitchell is a a 47 yr old fe male, seen at [facility] on 04/10/2023 for NSTEMI. Cath and PCI to the LAD was successful. Unsuccessful attempt to cross the RCA lesion. HX of DM type 2, HTN, PIPPA, hyperlipidemia. ECHO 04/10/2023: EF of 25-30% with grade 1 diastolic dysfunction. Trace MR, trace TR. [facility] 04/11/2023 consistent with severe two-vessel CAD-70% proximal LAD and 100% proximal RCA. Status post PCI to proximal LAD with 3.5 x 15 mm [place] NILSA. RCA was deemed to be WALL MAN. Assessment: 2v CAD s/p PCI to LAD (presented with NSTEMI) Ischemic cardiomyopathy/Systolic heart failure. Euvolemic Hypertension Hyperlipidemia Diabetes type 2 Active tobacco use Family history of premature CAD Morbid obesity PIPPA not compliant with CPAP Plan: - [facility] 04/11/2023 consistent with severe two-vessel CAD-70% proximal LAD and 100% proximal RCA. Status post PCI to proximal LAD with 3.5 x 15 mm Garth NILSA. RCA was deemed to be WALL MAN. - Repeat ECHO 07/12/23 showed improved EF [...] Will switch ARB to Entresto 24-26mg BID; Continue Coreg 6.25mg BID; Farxiga 10mg daily; Spironolactone 25mgdaily. Plan to uptitrate Coreg during the next visit. - Patient is euvolemic and has no diuretic indications. -Discussed smoking cessation-pt is cutting back and is scheduled for acupuncture to help assist with quitting. -Continuing with cardiac rehab. -Follow-up in 2 months. [facility] Work Phone: 1(551) 640-436102-08-2024 History of Present illness Narrative* Nelida Ambrosio NP - 07/11/2023 4:43 PM ESTAssociated Problem(s): Acute heart failure (CMS/HCC) Continue with cardiology Has echo tomorrow * Nelida Ambrosio NP - 07/11/2023 4:41 PM ESTAssociated Problem(s): Anxiety Doing ok on sertraline, we will increase buspirone to 7.5mg BID Fu in 2 months * Nelida Ambrosio NP - 07/11/2023 4:39 PM ESTAssociated Problem(s): Type 2 diabetes mellitus with hyperglycemia, without long-term current use of insulin (CMS/HCC) Will add farxiga 5mg daily, pt reports she just called cardiology they stated that would be fine tostart #3 boxes for Farxiga 10mg given instructions are 1/2 pill daily, lot # [id number] * ZANE GRIGGS - 07/11/2023 3:40 PM EST 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 Hypertensive end-organ damage includes CAD/MT, heart failure andleft ventricular hypertrophy. Diabetes She presents for her follow-up diabetic visit. She has type 2 diabetes mellitus. Her disease coursehas been improving. Hypoglycemia symptoms include nervousness/anxiousness. Pertinent negatives for hypoglycemia include no dizziness, headaches, seizures or tremors. Associated symptoms include chestpain and polyuria. Pertinent negatives for diabetes include [...] 180-200 mg/dl. An KIMMY inhibitor/angiotensin II receptor blockeris being taken. Eye exam is not current. [...] Medical History: Diagnosis Date Acute heart failure (CMS/HCC) 05/09/2023 Acute hemorrhoid Anxiety 05/09/2023 Aphthous ulcer Cold sore Coronary artery disease involving yuhaaviatam coronary artery of yuhaaviatam heart with angina pectoris ([facility]) 05/09/2023 COVID-19 viremia Depression ([facility]) Diastasis recti Essential (primary) hypertension [place] 05/09/2023 Eustachian salpingitis, left Hypertriglyceridemia [place] hypertriglycerides Hypothyroidism (acquired) ([facility] 05/09/2023 Left ankle swelling Mixed hyperlipidemia ([facility]) 05/09/2023 Obesity with body mass index (BMI) of 30.0 to 39.9 07/11/2023 IPPPA (obstructive sleep apnea) 05/08/2023 Right ovarian cyst Right-sided Pa's palsy Sinusitis, bacterial Toe pain, left Type 2 diabetes mellitus with hyperglycemia, without long-term current use of insulin ([facility]) 05/09/2023 Yeast infection of the vagina 04/29/2023 Past Surgical History: Procedure Laterality Date ADENOIDECTOMY 1981 SECTION, LOW TRANSVERSE 2004 CHOLECYSTECTOMY 2009 HYSTERECTOMY 11/2020 TLH, BSO TONSILLECTOMY 1982 TandA family history includes Brain Aneurysm in [...] cardiology they stated that would be fine tostart #3 boxes for Farxiga 10mg given instructions are 1/2 pill daily, lot # [id number] Essential (primary) hypertension (CMS/HCC) - Primary Acute heart failure (CMS/HCC) Continue with cardiology Has echo tomorrow Anxiety Doing ok on sertraline, we will increase buspirone to 7.5mg BID Fu in 2 months Relevant Medications busPIRone (Buspar) 7.5 MG tablet Obesity with body mass index (BMI) of 30.0 to 39.9 [id number] Evaluation note* Encounter Date Diagnosis Assessment Notes Treatment Notes Treatment Clinical Notes May, Ischemic cardiomyopathy (ICD-10 - I25.5) [employer] Other 11-29-2023 Evaluation note* Encounter Date Diagnosis Assessment Notes Treatment Notes Treatment Clinical Notes Apr, History of non-ST elevation myocardial infarction (NSTEMI) (ICD-10 - I25.2) Ms Mitchell is a a 47 yr old female, seen at [facility] on 04/10/2023 for NSTEMI. Cath and PCI to the LAD was successful. Unsuccessful attempt to cross the RCA lesion. HX of DM type 2, HTN, PIPPA, hyperlipidemia. ECHO 04/10/2023: EF of 25-30% with grade 1 diastolic dysfunction. Trace MR, trace TR. [facility] 04/11/2023 consistent with severe two-vessel CAD-70% proximal LAD and 100% proximal RCA. Status post PCI to proximal LAD with 3.5 x 15 mm Garth NILSA. RCA was deemed to be WALL MAN. Assessment: 2v CAD s/p PCI to LAD (presented with NSTEMI) Systolic heart failure. Euvolemic Hypertension Hyperlipidemia Diabetes type 2 Active tobacco use Family history of premature CAD Morbid obesity PIPPA not compliant with CPAP Plan: - [facility] 04/11/2023 consistent with severe two-vessel CAD-70% proximal LAD and 100% proximal RCA. Status post PCI to proximal LAD with 3.5 x 15 mm Garth NILSA. RCA was deemed to be WALL MAN. -Continue DAPT-aspirin 81 mg daily plus Brilinta [...] I25.5) Apr, Post PTCA (ICD-10 - Z98.61) [employer] Other 11-10-2023 Hospital Discharge instructions Additional Instructions [...] doctor or pharmacist, without first calling the silo filler who implanted the stent. If you require [...] weight lifting, stair steppers, etc. until the silo filler approves these activities. Check with the silo filler on your first follow-up visit. CALL YOUR PHYSICIAN at [phone]: -If bleeding should occur from the catheter insertion site- apply pressure to the site then immediately call us. -Report any fever, redness, drainage, increased swelling, or firmness at the catheter insertion site. Some bruising or slight swelling may be present at the time of discharge. -Should arm or leg become cold, numb, white, or blue, contact the silo filler immediately. -IF you should experience episodes of [...] is recommended. Please call Central Scheduling at [phone] to schedule your appointment.] The attending silo filler or [facility] nurse clinician should provide you with specific instructions regarding activity, diet, medications, and further follow up for you. Follow the medication instructions provided on your discharge. If the dosages and instructions on this sheet differ from the dosage and instructions on the bottle, follow the instructions on the bottle. [facility] is not responsible for incorrect prescription information provided by the patient during their visit. Do not stop your medications without consulting your health care provider. Please take the list with you to your next doctor's appointment.[facility] Work Phone: 1(355) 869-236011-10-2023 Discharge summary Author Florentino Kenyon [facility] April 12, 2023 9:01am Note Date/Time April 12, 2023 9:01am [facility] [address] [place] [address] Discharge Summary Signed Patient: Lorraine Mitchell MR#: [id number] : 1975 Acct:[id number] Age/Sex: 47 / F Adm Date: 3 Loc: Room: [address] [place] [address]: Florentino Kenyon MD Copies to: MD Mariela Skinner MD~ Providers Date of Discharge: 04/12/23 Discharging Provider: Florentino Kenyon Primary Care Provider: Mariela Lewis Consults: 04/10/23 10:29 Consult to Sleep [...] stented with a 3.5 x 15 mm [place] stent at 18 john with a residual [...] doctor or pharmacist, without first calling the silo filler who implanted the stent. If you require [...] weight lifting, stair steppers, etc. until the silo filler approves these activities. Check with the silo filler on your first follow-up visit. CALL YOUR PHYSICIAN at [phone]: -If bleeding should occur from the catheter insertion site- apply pressure to the site then immediately call us. -Report any fever, redness, drainage, increased swelling, or firmness at the catheter insertion site. Some bruising or slight swelling may be present at thetime of discharge. -Should arm or leg become cold, numb, white, or blue, contact the silo filler immediately. -IF you should experience episodes of [...] is recommended. Please call Central Scheduling at [phone] to schedule your appointment.] The attending silo filler or [facility] nurse clinician should provide you with specific instructions regarding activity, diet, medications, and further follow up for you. Follow the medication instructions provided on your discharge. If the dosages and instructions on this sheet differ from the dosage and instructions on the bottle, follow the instructions on the bottle. [facility] is not responsible for incorrect prescription [...] BY MOUTH TWICE A DAY Follow Up: Mariela Lewis MD [Primary Care Provider] - 04/16/23 10:30 am (You have been scheduled for a follow up appointment for the following date and time, please call to reschedule if needed.) Stephanie Sweet MD [Active Staff] - Documented By: Florentino Kenyon MD 04/12/23 0856 Signed By: <Electronically signed by Florentino Kenyon MD> 04/12/23900 [facility] Work Phone: 1(794) 700-240811-09-2023 Consult note Author [facility] April 11, 2023 6:12pm Note Date/Time April 11, 2023 6 :12pm [facility] [address] [place] [address] Cardiology Consult Note Signed Patient: Lorraine Mitchell MR#: [id number] : 1975 Acct:[id number] Age/Sex: 47 / F Adm Date: 3 Loc: Room: [address] [place] [address] Type: ADM IN Attending Dr: Florentino Kenyon MD Copies to: MD Mariela Skinner MD [facility], DO~ Cardiology HPI History of Present Illness Consult Date: 04/11/23 Reason for Consult: Non-ST elevation MT, two-vessel ASHD, ischemic cardiomyopathy HPI: Ms. Mitchell [...] alsohad premature CAD. Patient initially presented to [facility] where troponin was positive: 248-256. BNP elevated at 1327. EKG showed sinus tachycardia. Echo today shows EF of 25-30% with grade 1 diastolic dysfunction. Trace MR, trace TR. Troponin trend on arrival [phone] Catheterization was reviewed with primary silo filler, there is appears to be athrombotic occlusion of the proximal dominant RCA, and moderate 70% disease of the proximal LAD. We will proceed with PCI of the LAD, and attempted crossing of what appears to be a thrombotic occlusion of the RCA. [facility] Medical History (Updated 04/10/23 @ 11:06 by [...] Lymph # (Auto) 3.2 3.0 (1.00-4.8) x10E3/uL [place] # (Auto) 0.4 0.5 (0.0-0.8) x10E3/uL Eos [...] <Electronically signed by Magali Cortez DO> 04/11/23 6809 [facility] Work Phone: 1(686) 686-603411-09-2023 Progress note Author Stephanie Sweet [facility] April 11, 2023 1:12pm Note Date/Time April 11, 2023 1 :09pm [facility] [address] [place] [address] Cardiology Progress Note Signed Patient: Lorraine Mitchell MR#: [id number] : 1975 Acct:[id number] Age/Sex: 47 / F Adm Date: 3 Loc: 4 Room: [address] [place] [address] Type: ADM IN Attending Dr: Florentino Kenyon [...] alsohad premature CAD. Patient initially presented to [facility] where troponin was positive: 248-256. BNP elevated at 1327. EKG showed sinus tachycardia. Echo today shows EF of 25-30% with grade 1 diastolic dysfunction. Trace MR, trace TR. Interim history 04/11/2023: Troponin continues to uptrend 899-->2200. Reports minimal chest pain today. Heparin drip restarted last night. [facility] today Exam Physical Exam Vital Signs: Temp [...] MPV Neut % (Auto) Lymph % (Auto) [place] % (Auto) Eos % (Auto) Baso % (Auto) Nucleat RBC Rel Count Neut # (Auto) Lymph # (Auto) [place] # (Auto) Eos # (Auto) Baso # [...] % (Auto) 56.6 Lymph % (Auto) 36.2 [place] % (Auto) 4.6 Eos % (Auto) 1.2 Baso % (Auto) 1.4 Nucleat RBC Rel Count 0.1 Neut # (Auto) 5.0 Lymph # (Auto) 3.2 [place] # (Auto) 0.4 Eos # (Auto) 0.1 [...] MPV Neut % (Auto) Lymph % (Auto) [place] % (Auto) Eos % (Auto) Baso % (Auto) Nucleat RBC Rel Count Neut # (Auto) Lymph # (Auto) [place] # (Auto) Eos # (Auto) Baso # [...] % (Auto) 59.4 Lymph % (Auto) 33.4 [place] % (Auto) 5.8 Eos % (Auto) 0.9 Baso % (Auto) 0.5 Nucleat RBC Rel Count 0.1 Neut # (Auto) 5.3 Lymph # (Auto) 3.0 [place] # (Auto) 0.5 Eos # (Auto) 0.1 [...] MPV Neut % (Auto) Lymph % (Auto) [place] % (Auto) Eos % (Auto) Baso % (Auto) Nucleat RBC Rel Count Neut # (Auto) Lymph # (Auto) [place] # (Auto) Eos # (Auto) Baso # [...] alsohad premature CAD. Patient initially presented to [facility] where troponin was positive: 248-256. BNP elevated at 1327. EKG showed sinus tachycardia. Echo today shows EF of 25-30% with grade 1 diastolic dysfunction. Trace MR, trace TR. Troponin trend on arrival [phone] Assessment: NSTEMI Systolic heart failure. Euvolemic Hypertension [...] signed by Stephanie Sweet MD> 04/11/23 1312 [facility] Work Phone: 1([phone]) 750-162311-09-2023 Procedure [facility]11-09-2023 Procedure [facility]11-09-2023 Progress note Author Florentino Kenyon [facility] April 11, 2023 9:50am Note Date/Time April 11, 2023 9 :48am [facility] [address] [place] [address] Hospitalist Progress Note Signed Patient: Lorraine Mitchell MR#: [id number] : 1975 Acct:[id number] Age/Sex: 47 / F Adm Date: 3 Loc: 4P Room: [address] [place] [address] Type: ADM IN Attending Dr: Florentino Kenyon [...] signed by Florentino Kenyon MD> 04/11/23 0950 [facility] Work Phone: 1(601) 155-549111-08-2023 Consult note Author Stephanie Sweet [facility] April 10, 2023 8:00pm Note Date/Time April 10, 2023 7 :53pm [facility] [address] [place] [address] Cardiology Consult Note Signed Patient: Lorraine Mitchell MR#: [id number] : 1975 Acct:[id number] Age/Sex: 47 / F Adm Date: 3 Loc: Room: [address] [place] [address] Type: ADM IN Attending Dr: Florentino Kenyon [...] alsohad premature CAD. Patient initially presented to [facility] where troponin was positive: 248-256. BNP elevated at 1327. EKG showed sinus tachycardia. Echo today shows EF of 25-30% with grade 1 diastolic dysfunction. Trace MR, trace TR. Review of Systems Review of Systems All other systems reviewed & are negative unless noted below or in HPI [facility] Medical History (Updated 04/10/23 @ 11:06 by [...] alsohad premature CAD. Patient initially presented to [facility] where troponin was positive: 248-256. BNP elevated at 1327. EKG showed sinus tachycardia. Echo today shows EF of 25-30% with grade 1 diastolic dysfunction. Trace MR, trace TR. Troponin trend on arrival [phone] Assessment: NSTEMI Systolic heart failure. Euvolemic Hypertension [...] <Electronically signed by Stephanie Sweet MD> 04/10/231999 [facility] Work Phone: 1(775) 365-370711-08-2023 Evaluation note* Author Stephanie Sweet [facility] Authored July 24, 2023 10:10am Ms Mitchell is a a 47 yr old fe male, seen at [facility] on 04/10/2023 for NSTEMI. Cath and PCI to the LAD was successful. Unsuccessful attempt to cross the RCA lesion. HX of DM type 2, HTN, PIPPA, hyperlipidemia. ECHO 04/10/2023: EF of 25-30% with grade 1 diastolic dysfunction. Trace MR, trace TR. [facility] 04/11/2023 consistent with severe two-vessel CAD-70% proximal LAD and 100% proximal RCA. Status post PCI to proximal LAD with 3.5 x 15 mm [place] NILSA. RCA was deemed to be WALL MAN. Assessment: 2v CAD s/p PCI to LAD (presented with NSTEMI) Ischemic cardiomyopathy/Systolic heart failure. Euvolemic Hypertension Hyperlipidemia Diabetes type 2 Active tobacco use Family history of premature CAD Morbid obesity PIPPA not compliant with CPAP Plan: - [facility] 04/11/2023 consistent with severe two-vessel CAD-70% proximal LAD and 100% proximal RCA. Status post PCI to proximal LAD with 3.5 x 15 mm [place] NILSA. RCA was deemed to be WALL MAN. - Repeat ECHO 07/12/23 showed improved EF [...] with cardiac rehab. -Follow-up in 2 months. [facility] Work Phone: 1(768) 358-160211-08-2023 History and physical note Author Florentino Kenyon [facility] April 10, 2023 11:10am Note Date/Time April 10, 2023 1 1:10am [facility] [address] [place] [address] Hospitalist H&P Signed Patient: Lorraine Mitchell MR#: [id number] : 1975 Acct:[id number] Age/Sex: 47 / F Adm Date: 3 Loc: Room: 0O6631-9 Type: ADM IN Attending Dr: Florentino Kenyon MD Copies to: MD Mariela Skinner MD~ HPI DATE OF EXAMINATION: 04/10/23 [...] negative unless noted below or in HPI [facility] Medical History (Updated 04/10/23 @ 11:06 by [...] signed by Florentino Kenyon MD> 04/10/23 1110 [facility] Work Phone: Evaluation note* Diagnosis Onset Date Resolution Status Diabetes type 2, controlled acute Hyperlipidemia acute Hypertension acute Nicotine abuse acute Non-STEMI (non-ST elevated myocardial infarction) acute PIPPA (obstructive sleep apnea) acute [facility] Work Phone: evaluation noteNo InformationNort [employer] Other Evaluation noteNo assessment information available [facility] Work Phone: evalufabca note* Diagnosis Type 2 diabetes mellitus with hyperglycemia, without long-term current use of insulin ([facility])- Primary Obesity with body mass index (BMI) of 30.0 to 39.9 Tobacco user Tobacco use disorder Essential (primary) hypertension (CMS/HCC) Unspecified essential hypertension Acute heart failure, unspecified heart failure type (CMS/[facility]) Anxiety Anxiety state, unspecified documented in this [...] of, Problem Comment : Cholecystectomy Lap - Sly 2008 Umbilical hernia repair - - 2007 [...] History cath/PCI 04/2023 Hospitalization History NSTEMI 04/2023 [employer] Other Progress note Author Stephanie Sweet [facility] April 12, 2023 2:38pm Note Date/Time April 12, 2023 2:30pm [facility] [address] [place] [address] Cardiology Progress Note Signed Patient: Lorraine Mitchell MR#: [id number] : 1975 Acct:[id number] Age/Sex: 47 / F Adm Date: 3 Loc: Room: [address] [place] [address] Type: ADM IN Attending Dr: Florentino Kenyon [...] alsohad premature CAD. Patient initially presented to [facility] where troponin was positive: 248-256. BNP [...] alsohad premature CAD. Patient initially presented to [facility] where troponin was positive: 248-256. BNP elevated at 1327. EKG showed sinus tachycardia. Echo today shows EF of 25-30% with grade 1 diastolic dysfunction. Trace MR, trace TR. Troponin trend on arrival [phone] Assessment: NSTEMI Systolic heart failure. Euvolemic Hypertension Hyperlipidemia Diabetes type 2 Active tobacco use Family history of premature CAD Morbid obesity PIPPA not compliant with CPAP Recommendations: - [facility] 04/11/2023 consistent with severe two-vessel CAD-70% proximal LAD and 100% proximal RCA. Status post PCI to proximal LAD with 3.5 x 15 mm [place] NILSA. RCA was deemed to be WALL MAN. Appreciate Dr Cortez's assistance in this case. [...] she change her mind. -2-week follow-up with [facility] cardiology. Documented By: Stephanie Sweet MD 04/12/23 1129 Signed By: <Electronically signed by Stephanie Sweet MD> 04/12/23 1438 [facility] Work Phone: Reason for visit NarrativeCARDIAC REHAB REFERRAL UPDATENocox south [employer] Other Summary Purpose Family History Relationship Condition [...] Time Advance Directives No November 15 12:56pm Advance Directive Response Recorded Date/ Time Advance Directives No November 15 1:56pm Chief Complaint and Reason for Visit Chief Complaint Non Stemi Reason for Visit Diabetes type 2, con trolled Hyperlipidemia Hypertension Nicotine abuse Non-STEMI (non-ST elevated myocardial infarction) PIPPA (obstructive sleep apnea) Chief Complaint [facility]: 2wks i25.2 I25.5 Chief Complaint [facility]: 2wks i25.2 I25.5 3 month follow up Chief Complaint i25.2 I25.5 3 month follow up Two month f/u Reason for Referral Reason Cardiac rehab Diagnosis 1 Ischemic cardiomyopa thy (I25.5) Diagnosis 2 Post PTCA (Z98.61) Diagnosis 3 History of non-ST el evation myocardial infarction (NSTEMI) (I25.2) Referral Organization [facility] Cardiology Referring Provider First Name Stephanie Referring Provider Last Name Kee Referring Provider Specialty Cardiovascu lar Disease Referred Organization [facility] Referred Address [address] [place], [place],[address] Referred Provider Specialty Cardiology Referral Priority Routine General Notes Cecilia Acuña 02:15:12 PM >received today, attachments made, waiting for notes to be locked Clinical Notes central scheduling f: [phone] Additional Source Comments INFORMATION SOURCE (unrecogn ized section and content) DATE CREATED AUTHOR 08/19/2020 [facility] DATE CREATED AUTHOR AUTHOR'S ORGANIZ ATION 01/08/2022 [facility] DATE CREATED AUTHOR AUTHOR'S ORGANIZ ATION 07/13/2023 [facility] DATE CREATED AUTHOR AUTHOR'S ORGANIZ ATION 09/11/2023 [facility] EPIC Care Teams (unrecognized sec tion and content) Team Status: Active Member Role Status Dates Mariela Lewis MD Primary Care Provider Active Team Status: Inactive Member Role Status Dates Mariela Lewis MD Primary Care Provider Active Florentino Kenyon MD Admit Provider, Attending Provider A ctive Business Professor Relationship Specialty Start Date End Date Thom Weinberg MD [address] [place] [phone] PCP - General Family Medicine 05/20/23 Nelida Ambrosio NP [address] [place] [phone] Nurse Practitioner Family Medicine 04/19/23 Team Status: Inactive Member Role Status Dates Stephanie Sweet MD Attending Provider Active Sta rt: May 01, 2023 End: May 01, 2023 Team Status: Inactive Member Role Status Dates Mariela Lewis MD Primary Care Provider Active Start: July 12, 2023 End: July 12, 2023 Stephanie Sweet MD Attending Provider Active Sta rt: July 12, 2023 End: July 12, 2023 Business Professor Relationship Specialty Start Date End Date Thom Weinberg MD [address] [place] [phone] PCP - General Family Medicine 05/20/23 Nelida Ambrosio NP [address] [place] [phone] Nurse Practitioner Family Medicine 04/19/23 Business Professor Relationship Specialty Start Date End Date Thom Weinberg MD [address] [place] [phone] PCP - General Family Medicine 05/20/23 Nelida Ambrosio NP [address] [place] [phone] Nurse Practitioner Family Medicine 04/19/23 Team Status: Inactive Member Role Status Dates Mariela Lewis MD Primary Care Provider Active Start: July 24, 2023 End: July 24, 2023 Stephanie Sweet MD Attending Provider Active Sta rt: July 24, 2023 End: July 24, 2023 Team Status: Inactive Member Role Status Dates Mariela Lewis MD Primary Care Provider Active Start: September 18, 2023 End: September 18, 2023 Stephanie Sweet MD Attending Provider Active Sta rt: September 18, 2023 End: September 18, 2023 REASON FOR VISIT (unrecogniz ed section and content) [facility]: 2WKSClinical Acute Ill nessClinical Goals (unrecognized section [...] BE BASED ON THE PRIMARY CLINICAL RECORDS. [employer] [facility]. provides no warranty or guarantee of the accuracy or completeness of information in this document.
== END 2023-11-01 13:06 | disposition home or self-care (01) ==
LOC: MAMMO 13:05
PROVIDERS: PCP Nurse Practitioner; Visit Provider Nurse Practitioner
DX: Z12.31 Encounter for screening mammogram for malignant neoplasm of breast (principal); Z80.0 Family history of malignant neoplasm of digestive organs; Z80.8 Family history of malignant neoplasm of other organs or systems
CPT/HCPCS: 77063; 77067

== ENCOUNTER 2023-12-09 14:10 | Outpatient (OUT) | payer OTHER, SELFPAY | END 2023-12-09 14:11 | disposition home or self-care (01) | LOC: PST 14:10 | PROVIDERS: PCP Nurse Practitioner; Visit Provider Surgery | DX: Z01.818 Encounter for other preprocedural examination (principal); Z12.11 Encounter for screening for malignant neoplasm of colon ==

== ENCOUNTER 2023-12-24 08:06 | Day surgery (SDC) | payer OTHER, SELFPAY ==
--- OUTSIDE RECORDS SUMMARY | 2023-12-24 08:09 | XMS_ITS | CCD ---
Author Organization [facility] Inform ion Partnership [facility] Care Team Providers Care Pediatric Assistant Name Role Phone DR MARIELA LEWIS Admitting Unavailable DR MARIELA LEWIS Attending Unavailable DR MARIELA LEWIS Primary Care Unavailable DR MARIELA LEWIS Consulting Unavailable MD Mariela Lewis Primary Care Provider [phone] MD Florentino Kenyon Admit Provider MD Florentino Kenyon Attending Provider [phone] Stephanie Sweet Unavailable Nelida Ambrosio NP Unavailable Thom Weinberg MD Primary Care Provider [phone] MD Mariela Lewis Primary Care Provider MD Stephanie Sweet Attending Provider [phone] Florentino Kenyon Admitting Unavailable Florentino Kenyon Attending Unavailable Mariela Lewis Primary Care Unavailable Stephanie Sweet Consulting Unavailable Stephanie Sweet Attending Unavailable Mariela Lewis Primary Care Unavailable Stephanie Sweet Admitting Unavailable MD Mariela Lewis Primary Care Provider [phone] MD Stephanie Sweet Attending Provider NELIDA AMBROSIO Attending Unavailable NELIDA AMBROSIO Attending Unavailable NELIDA AMBROSIO Attending Unavailable MARYELLEN SAUCEDO Attending Unavailable Medications Current Medications Medication Drug Class(es) [...] Start: 09-18-2023 Hydrocortisone Acetate Active 25 MG IN Daily September 18, 2023 12:00am isopropyl alcohol [...] Active oral daily for 0 *Reorder from [place] for eRx and Interaction Alerts* May, Not-Taking/PRN Start: 05-09-2022 take 1 tablet by juan m th once daily Levothyroxine 75mcg levothyroxine 75mcg, 1 (one) Tablet daily # 90, 05/09/2022, No Refill. Active oral daily for 0 *Reorder from [place] for eRx and Interaction Alerts* May, Not-Taking [...] hyperglycemia, without long-term current use of insulin ([facility]) Take 2 tablets (1,000 mg) by [...] two times daily for 0 *Reorder from [place] for eRx and Interaction Alerts* Mar, Active [...] tablet Active 1 TAB PO Twice daily 60 July 24, 2023 1:00am sertraline 50 mg [...] Active 90 MG PO Twice daily 180 July 24, 2023 11:17am tiZANidine 4 mg [...] Test Name Value Interpretation Reference Range Facility [facility] echo transthoracicon [facility] echo transthoracic [facility] [place] [address] Echocardiogram Signed Patient: Lorraine Mitchell MR#: [id number] 93 : 1975 Acct:[id number] Age/Sex: 47 / F ADM Date: 07/12/23 Loc: Room: Type: [facility] Attending Dr: Stephanie Sweet MD Ordering Provider: Stephanie Sweet MD Date of Service: 07/12/2302/24/1326 [facility] echo transthoracic: History of non-ST [...] 108.0 ml HR ()_phl: 70.0 BPMES Current (HM)_phl: 30.0 % LV Length ED (HM)_phl: 92.0 mmSV (HM)_phl: 79.0 ml ED Default (HM)_phl: 60.0 % LV Length ES (HM)_phl: 80.0 mm ES Default (HM)_phl: 30.0 % Transcribed By: SCV Performed At: 07/12/23 1334 Signed By: Grace Solorio MD 07/12/23 1521 [facility] ALL LIPID PROFILE (FASTING)o n 07-06-2023 CHOL HDL RATIO 3.8 [facility] Comment on above: 3.3 - 4.4 LOW RISK 4.4 - 7.1 AVERAGE RISK 7.1 - 11.0 MODERATE RISK >11.0 HIGH RISK Cholesterol [Mass/Vol] 124 mg/dL NINF - 200 mg/dL [facility] Cholesterol in HDL [Mass/Vol] 33 mg/dL Low 40 - 60 mg/dL [facility] Comment on above: > or =60 mg/dl - LOW CARDIOVASCULAR RISK <40 mg/dl - HIGH CARDIOVASCULAR RISK Magnesium [Mass/Vol] 37.0 mg/dL [facility] Comment on above: <100 mg/dl OPTIMAL 100-129 mg/dl NEAR OR ABOVE OPTIMAL 130-159 mg/dl BORDERLINE HIGH 160-189 mg/dl HIGH >190 mg/dl VERY HIGH Magnesium [Mass/Vol] 54.2 mg/dL [facility] Triglyceride [Mass/Vol] 271 mg/dL High NINF - 150 mg/dL [facility] 07-06-2023 ALT [Catalytic activity/Vol] 37 U/L 14 - 59 U/L [facility] Jenny 07-06-2023 AST [Catalytic activity/Vol] 13 U/L Low 15 - 37 U/L [facility] No Panel Informationon 07-06 Interpretation and review of laboratory results Abnormal [facility] ECG 12 lead ECGon 04-12-2023 ECG 12 lead ECG [facility] Main [place] [id number] Electrocardiograph Report Signed Patient: Lorraine Mitchell MR#: [id number] 93 : 1975 Acct:[id number] Age/Sex: 47 / F ADM Date: 04/10/23 Loc: Room: [address] [place] [address] Type: DIS IN Attending Dr: Florentino Kenyon [...] By: MUS Signed By Darryl Kee MD 1962 [facility] Glucose Glucometer (BldC) [M ass/Vol]Ordered By: Florentino Kenyon on 04-12-2023 Glucose [Mass/Vol] 226 mg/dL [facility] Comment on above: Random Glucose Refer ence Range is dependent on time and content of last meal. Glucose of more than 200 mg/dL in a nonstressed, ambulatory subject supports the diagnosis of Diabetes Mellitus. Glucose Poct Glucometerson 1 06-12-2022 Glucose [Mass/Vol] 226 mg/dL [facility] Comment on above: Result Comment: [place] om Glucose Reference Range is dependent on time and content of last meal. Glucose of more than 200 mg/dL in a nonstressed, ambulatory subject supports the diagnosis of Diabetes Mellitus. PERFORMED BY: [place] [address] PATHOLOGIST PACKING ROOM SUPERVISOR ELPIDIO DUMONT M.D. Performed By: #### G LULS #### Point of Care testing , Glucose [Mass/Vol] 219 mg/dL Normal [facility] Comment on above: Result Comment: [facility] Glucose Reference Range is dependent on time and content of last meal. Glucose of more than 200 mg/dL in a nonstressed, ambulatory subject supports the diagnosis of Diabetes Mellitus. PERFORMED BY: [place] [address] PATHOLOGIST PACKING ROOM SUPERVISOR ELPIDIO DUMONT M.D. Performed By: #### H S TROP, CK #### [place] [id number] [facility] Troponin I High Sensitivityo n 04-12-2023 Troponin I High Sensitivity 3417.1 pg/mL Off scale high 0.0-15.0 [facility] Comment on above: Result Comment: Crit ical Result : Called to and read back by: CLAYTON MCCLOUD at: 04/12/2023 06:08:29 by:[id number] PERFORMED BY: [place] [address] PATHOLOGIST PACKING ROOM SUPERVISOR ELPIDIO DUMONT M.D. Performed By: #### H S TROP, CK #### [facility] [address] [place] [address] Troponin I.cardiac [Mass/vol ume] in Serum or Plasma by Detection limit <= 0.01 ng/Ordered By: Magali Cortez on 04-12-2023 Troponin I.cardiac DL <= 0.01 ng/mL [Mass/Vol] 3417.1 pg/mL 0.0-15.0 [facility] Comment on above: Critical Result : Ca lled to and read back by: CLAYTON MCCLOUD at: 04/12/2023 06:08:29 by:[email or web address] Activated partial thrombopla stin time (aPTT) in platelet poor plasma by coagulation aOrdered By: Stephanie Sweet on 04-11-2023 aPTT Coag (PPP) [Time] 29.3 s 25.1-36.5 [facility] Comment on above: A hematocrit value g reater than 55% may lead to inaccurate results in coagulation testing. Patients having hematocrit values >55% require a special collection tube for coagulation studies. Please contact the laboratory at [phone] for redraw instructions. Basophils Auto (Bld) [#/Vol] Ordered By: Stephanie Sweet on 04-11-2023 Basophils (Bld) [#/Vol] 0.0 10*3/uL 0.0-0.2 [facility] Basophils/100 WBC Auto (Bld) Ordered By: Stephanie Sweet on 04-11-2023 Basophils/100 WBC (Bld) 0.5 % . [facility] Blood Urea Nitrogenon 2022 Urea nitrogen [Mass/Vol] 11 mg/dL Normal 7-25 [facility] Comment on above: Performed By: #### C REAT, BUN, CBC, LYTES #### [address] Carbon dioxide, total [Moles /volume] in Serum or PlasmaOrdered By: Stephanie Sweet on 04-11-2023 CO2 [Moles/Vol] 26.7 mmol/L 21.0-31.0 [facility] Chloride [Moles/volume] in S ambika or PlasmaOrdered By: Stephanie Sewet on 04-11-2023 Chloride [Moles/Vol] 101 mmol/L 98-107 [facility] Coagulation Profileon 2022 aPTT Coag (Bld) [Time] 29.3 s Normal 25.1-36.5 [facility] Comment on above: Result Comment: A he matocrit value greater than 55% may lead to inaccurate results in coagulation testing. Patients having hematocrit values >55% require a special collection tube for coagulation studies. Please contact the laboratory at [phone] for redraw instructions. PERFORMED BY: [facility] [address] [place] [id number] PATHOLOGIST PACKING ROOM SUPERVISOR ELPIDIO DUMONT M.D. Performed By: #### H S TROP CK #### [address] INR Coag (PPP) [Relative time] 1.0 {INR} Normal [facility] Comment on above: Result Comment: INR [...] - 4.5 Performed By: #### H S TROP CK #### [address] PT Coag (PPP) [Time] 12.0 s Normal 9.0-12.9 [facility] Comment on above: Result Comment: A he matocrit value greater than 55% may lead to inaccurate results in coagulation testing. Patients having hematocrit values >55% require a special collection tube for coagulation studies. Please contact the laboratory at [phone] for redraw instructions. Performed By: #### H S TROP CK #### [address] Complete Blood Count Auto Di ffon 04-11-2023 Basophils (Bld) [#/Vol] 0.0 10*3/uL Normal 0.0-0.2 [facility] Comment on above: Result Comment: PERF ORMED BY: [place] [address] PATHOLOGIST PACKING ROOM SUPERVISOR ELPIDIO DUMONT M.D. Performed By: #### C REAT, BUN, CBC, LYTES #### [place] [address] [place] Basophils/100 WBC (Bld) 0.5 % Normal . [facility] Comment on above: Performed By: #### C REAT, BUN, CBC, LYTES #### [place] [address] [place] Eosinophils (Bld) [#/Vol] 0.1 10*3/uL Normal 0.0-0.45 [facility] Comment on above: Performed By: #### C REAT, BUN, CBC, LYTES #### [address] Eosinophils/100 WBC (Bld) 0.9 % Normal . [facility] Comment on above: Performed By: #### C REAT, BUN, CBC, LYTES #### [address] Erythrocyte distribution width (RBC) [Ratio] 14.5 % Normal 11.9-15.3 [facility] Comment on above: Performed By: #### C REAT, BUN, CBC, LYTES #### [address] Hematocrit (Bld) [Volume fraction] 35.1 % Normal 34.0-46.4 [facility] Comment on above: Performed By: #### C REAT, BUN, CBC, LYTES #### [address] Hemoglobin (Bld) [Mass/Vol] 11.8 g/dL Normal 11.8-15.4 [facility] Comment on above: Performed By: #### C REAT, BUN, CBC, LYTES #### [address] Lymphocytes (Bld) [#/Vol] 3.0 10*3/uL Normal 1.00-4.8 [facility] Comment on above: Performed By: #### C REAT, BUN, CBC, LYTES #### [address] Lymphocytes/100 WBC (Bld) 33.4 % Normal . [facility] Comment on above: Performed By: #### C REAT, BUN, CBC, LYTES #### [address] MCH (RBC) [Entitic mass] 30.7 pg Normal 24.7-34.3 [facility] Comment on above: Performed By: #### C REAT, BUN, CBC, LYTES #### [address] MCV (RBC) [Entitic vol] 91.1 fL Normal 80-100 [facility] Comment on above: Performed By: #### C REAT, BUN, CBC, LYTES #### [address] Mean Corpuscular HGB Conc 33.7 g/dL Normal 32.0-35.0 [facility] Comment on above: Performed By: #### C REAT, BUN, CBC, LYTES #### [address] Monocytes (Bld) [#/Vol] 0.5 10*3/uL Normal 0.0-0.8 [facility] Comment on above: Performed By: #### C REAT, BUN, CBC, LYTES #### [address] Monocytes/100 WBC (Bld) 5.8 % Normal . [facility] Comment on above: Performed By: #### C REAT, BUN, CBC, LYTES #### [address] Neutrophils (Bld) [#/Vol] 5.3 10*3/uL Normal 1.8-7.7 [facility] Comment on above: Performed By: #### C REAT, BUN, CBC, LYTES #### [address] Neutrophils/100 WBC (Bld) 59.4 % Normal . [facility] Comment on above: Performed By: #### C REAT, BUN, CBC, LYTES #### [address] NRBC% 0.1 /100{WBC} Normal 0-0.5 [facility] Comment on above: Performed By: #### C REAT, BUN, CBC, LYTES #### [address] Platelet mean volume (Bld) [Entitic vol] 9.4 fL Normal 6.3-10.7 [facility] Comment on above: Performed By: #### C REAT, BUN, CBC, LYTES #### [address] Platelets (Bld) [#/Vol] 213 10*3/uL Normal 150-450 [facility] Comment on above: Performed By: #### C REAT, BUN, CBC, LYTES #### [address] RBC (Bld) [#/Vol] 3.85 10*6/uL Normal 3.60-5.00 [facility] Comment on above: Performed By: #### C REAT, BUN, CBC, LYTES #### [address] WBC (Bld) [#/Vol] 9.0 10*3/uL Normal 3.8-11.6 [facility] Comment on above: Performed By: #### C REAT, BUN, CBC, LYTES #### [address] Creatine Kinaseon 04-11-2023 CK [Catalytic activity/Vol] 186 U/L Normal [facility] Comment on above: Performed By: #### H S TROP, CK #### [facility] [address] [place] [address] CK [Catalytic activity/Vol] 242 U/L High [facility] Comment on above: Performed By: #### H S TROP, CK #### [address] Creatine kinase [Enzymatic a ctivity/volume] in Serum or PlasmaOrdered By: Florentino Kenyon on 04-11-2023 CK [Catalytic activity/Vol] 186 U/L [facility] Creatinineon 04-11-2023 Creatinine [Mass/Vol] 0.47 mg/dL Low 0.60-1.20 [facility] Comment on above: Performed By: #### H S TROP, CK #### [facility] [address] [place] [address] [place] Creatinine Clr Calc Pharmacy 166.11 [facility] Comment on above: Result Comment: PERF ORMED BY: [place] [address] PATHOLOGIST PACKING ROOM SUPERVISOR ELPIDIO DUMONT M.D. Performed By: #### H S TROP, CK #### [facility] [address] [place] [address] [place] GFR/1.73 sq M.predicted MDRD (S/P/Bld) [Vol rate/Area] mL/min/{1.73_m2} [facility] Comment on above: Performed By: #### H S TROP, CK #### [address] Creatinine [Mass/volume] in Serum or PlasmaOrdered By: Stephanie Sweet on 04-11-2023 Creatinine [Mass/Vol] 0.47 mg/dL 0.60-1.20 [facility] ECG 12 lead ECGon 04-11-2023 ECG 12 lead ECG [facility] Main [place] [place] [address] Electrocardiograph Report Signed Patient: Lorraine Mitchell MR#: [id number] 93 : 1975 Acct:[id number] Age/Sex: 47 / F ADM Date: 04/10/23 Loc: Room: [address] [place] [address] Type: DIS IN Attending Dr: Florentino Kenyon [...] (247) on 04/12/2023 8:50:20 PM Referred By: DIEGO Electronically Signed By:DARRYL KEE MD Transcribed By: MARIE Signed By Darryl Kee MD 2049 [facility] Electrolyteson 04-11-2023 Anion gap [Moles/Vol] 12.1 mmol/L Normal 6.0-15.0 [facility] Comment on above: Performed By: #### C REAT, BUN, CBC, LYTES #### [facility] [address] Chloride [Moles/Vol] 101 mmol/L Normal 98-107 [facility] Comment on above: Performed By: #### C REAT, BUN, CBC, LYTES #### [facility] [address] CO2 [Moles/Vol] 26.7 mmol/L Normal 21.0-31.0 [facility] Comment on above: Performed By: #### C REAT, BUN, CBC, LYTES #### [facility] [address] [place] [address] [place] Potassium [Moles/Vol] 3.8 mmol/L Normal 3.5-5.1 [facility] Comment on above: Performed By: #### C REAT, BUN, CBC, LYTES #### [facility] [address] [place] [address] [place] Sodium [Moles/Vol] 136 mmol/L Normal 136-145 [facility] Comment on above: Performed By: #### C REAT, BUN, CBC, LYTES #### [facility] [address] [place] [address] [place] Eosinophils Auto (Bld) [#/Vo l]Ordered By: Stephanie Sweet on 04-11-2023 Eosinophils (Bld) [#/Vol] 0.1 10*3/uL 0.0-0.45 [facility] Eosinophils/100 WBC Auto (Bl d)Ordered By: Stephanie Sweet on 04-11-2023 Eosinophils/100 WBC (Bld) 0.9 % . [facility] Erythrocyte distribution wid th Auto (RBC) [Ratio]Ordered By: Stephanie Sweet on 04-11-2023 Erythrocyte distribution width (RBC) [Ratio] 14.5 % 11.9-15.3 [facility] Glucose Poct Glucometerson 1 06-11-2022 Glucose [Mass/Vol] 200 mg/dL Normal [facility] Comment on above: Result Comment: [place] om Glucose Reference Range is dependent on time and content of last meal. Glucose of more than 200 mg/dL in a nonstressed, ambulatory subject supports the diagnosis of Diabetes Mellitus. PERFORMED BY: [address] [place] [address] PATHOLOGIST PACKING ROOM SUPERVISOR ELPIDIO DUMONT M.D. Performed By: #### G LULS #### Point of Care testing , Commemt1 Glu2: Cleaned Meter Normal [facility] Comment on above: Result Comment: PERF ORMED BY: [address] [place] [address] PATHOLOGIST PACKING ROOM SUPERVISOR ELPIDIO DUMONT M.D. Performed By: #### G LULS #### Point of Care testing , Glucose [Mass/Vol] 221 mg/dL Normal [facility] Comment on above: Result Comment: [place] om Glucose Reference Range is dependent on time and content of last meal. Glucose of more than 200 mg/dL in a nonstressed, ambulatory subject supports the diagnosis of Diabetes Mellitus. Performed By: #### G LULS #### Point of Care testing , Glucose [Mass/Vol] 204 mg/dL Normal [facility] Comment on above: Result Comment: [place] Glucose Reference Range is dependent on time and content of last meal. Glucose of more than 200 mg/dL in a nonstressed, ambulatory subject supports the diagnosis of Diabetes Mellitus. PERFORMED BY: [address] [place] [address] PATHOLOGIST PACKING ROOM SUPERVISOR ELPIDIO DUMONT M.D. Performed By: #### G LULS #### Point of Care testing , Hematocrit Auto (Bld) [Volum e fraction]Ordered By: Stephanie Sweet on 04-11-2023 Hematocrit (Bld) [Volume fraction] 35.1 % 34.0-46.4 [facility] Hemoglobin [Mass/volume] in BloodOrdered By: Stephanie Sweet on 04-11-2023 Hemoglobin (Bld) [Mass/Vol] 11.8 g/dL 11.8-15.4 [facility] INR in Platelet poor plasma by Coagulation assayOrdered By: Stephanie Sweet on 04-11-2023 INR Coag (PPP) [Relative time] 1.0 {INR} [facility] Comment on above: INR Therapeutic Rang [...] RBC Auto (Bld) [#/Vol] 9.0 10*3/uL 3.8-11.6 [facility] Lymphocytes Auto (Bld) [#/Vo l]Ordered By: Stephanie Sweet on 04-11-2023 Lymphocytes (Bld) [#/Vol] 3.0 10*3/uL 1.00-4.8 [facility] Lymphocytes/100 WBC Auto (Bl d)Ordered By: Stephanie Sweet on 04-11-2023 Lymphocytes/100 WBC (Bld) 33.4 % . [facility] MCH Auto (RBC) [Entitic mass ]Ordered By: Stephanie Sweet on 04-11-2023 MCH (RBC) [Entitic mass] 30.7 pg 24.7-34.3 [facility] MCHC Auto (RBC) [Mass/Vol]Or dered By: Stephanie Sweet on 04-11-2023 MCHC (RBC) [Mass/Vol] 33.7 g/dL 32.0-35.0 [facility] MCV Auto (RBC) [Entitic vol] Ordered By: Stephanie Sweet on 04-11-2023 MCV (RBC) [Entitic vol] 91.1 fL 80-100 [facility] Monocytes Auto (Bld) [#/Vol] Ordered By: Stephanie Sweet on 04-11-2023 Monocytes (Bld) [#/Vol] 0.5 10*3/uL 0.0-0.8 [facility] Monocytes/100 WBC Auto (Bld) Ordered By: Stephanie Sweet on 04-11-2023 Monocytes/100 WBC (Bld) 5.8 % . [facility] Neutrophils Auto (Bld) [#/Vo l]Ordered By: Stephanie Sweet on 04-11-2023 Neutrophils (Bld) [#/Vol] 5.3 10*3/uL 1.8-7.7 [facility] Neutrophils/100 WBC Auto (Bl d)Ordered By: Stephanie Sweet on 04-11-2023 Neutrophils/100 WBC (Bld) 59.4 % . [facility] No Panel InformationOrdered By: Florentino Kenyon on 04-11-2023 Bedside Glucose Comment Glu2: cleaned meter [facility] No Panel InformationOrdered By: Stephanie Sweet on 04-11-2023 Estimated GFR (CKD-EPI) > 60.0 mL/Min [facility] Creatinine Clearance (Chem 166.11 [facility] Nucleated erythrocytes [Pres ence] in Blood by Automated countOrdered By: Stephanie Sweet on 04-11-2023 Nucleated RBC Auto Ql (Bld) 0.1 /100{WBC} 0-0.5 [facility] Partial Thromboplastin Timeo n 04-11-2023 aPTT Coag (Bld) [Time] 29.2 s Normal 25.1-36.5 [facility] Comment on above: Result Comment: A he matocrit value greater than 55% may lead to inaccurate results in coagulation testing. Patients having hematocrit values >55% require a special collection tube for coagulation studies. Please contact the laboratory at [phone] for redraw instructions. PERFORMED BY: [facility] [place] [address] PATHOLOGIST PACKING ROOM SUPERVISOR ELPIDIO DUMONT M.D. Performed By: #### H S TROP, CK #### [facility] [address] [place] [id number] [facility] Platelet mean volume Auto (B ld) [Entitic vol]Ordered By: Stephanie Sweet on 04-11-2023 Platelet mean volume (Bld) [Entitic vol] 9.4 fL 6.3-10.7 [facility] Platelets Auto (Bld) [#/Vol] Ordered By: Stephanie Sweet on 04-11-2023 Platelets (Bld) [#/Vol] 213 10*3/uL 150-450 [facility] Potassium [Moles/volume] in Serum or PlasmaOrdered By: Stephanie Sweet on 04-11-2023 Potassium [Moles/Vol] 3.8 mmol/L 3.5-5.1 [facility] Prothrombin time (PT)Ordered By: Stephanie Sweet on 04-11-2023 PT Coag (PPP) [Time] 12.0 s 9.0-12.9 [facility] Comment on above: A hematocrit value g reater than 55% may lead to inaccurate results in coagulation testing. Patients having hematocrit values >55% require a special collection tube for coagulation studies. Please contact the laboratory at [phone] for redraw instructions. RBC Auto (Bld) [#/Vol]Ordere d By: Stephanie Sweet on 04-11-2023 RBC (Bld) [#/Vol] 3.85 10*6/uL 3.60-5.00 [facility] Serum or plasma anion gap de terminationOrdered By: Stephanie Sweet on 04-11-2023 Anion gap [Moles/Vol] 12.1 mmol/L 6.0-15.0 [facility] Sodium [Moles/volume] in Ser um or PlasmaOrdered By: Stephanie Sweet on 04-11-2023 Sodium [Moles/Vol] 136 mmol/L 136-145 [facility] Troponin I High Sensitivityo n 04-11-2023 Troponin I High Sensitivity 2287.4 pg/mL Off scale high 0.0-15.0 [facility] Comment on above: Result Comment: Crit ical Result : Called to and read back by: LILLY GRAY at: 04/11/2023 12:03:27 by:LISS PERFORMED BY: [place] [address] PATHOLOGIST PACKING ROOM SUPERVISOR ELPIDIO DUMONT M.D. Performed By: #### H S TROP, CK #### [address] Troponin I High Sensitivity 2115.2 pg/mL Off scale high 0.0-15.0 [facility] Comment on above: Result Comment: Crit ical Result : Called to and read back by: CLAYTON REDMAN at: 04/11/2023 00:13:42 by:AUGUSTO PERFORMED BY: [place] [address] PATHOLOGIST PACKING ROOM SUPERVISOR ELPIDIO DUMONT M.D. Performed By: #### H S TROP, CK #### [place] [id number] [facility] Urea nitrogen [Mass/volume] in Serum or PlasmaOrdered By: Stephanie Sweet on 04-11-2023 Urea nitrogen [Mass/Vol] 11 mg/dL 7-25 [facility] WBC Auto (Bld) [#/Vol]Ordere d By: Stephanie Sweet on 04-11-2023 WBC (Bld) [#/Vol] 9.0 10*3/uL 3.8-11.6 [facility] Complete Blood Count Auto Di ffon 04-10-2023 Basophils (Bld) [#/Vol] 0.1 10*3/uL Normal 0.0-0.2 [facility] Comment on above: Result Comment: PERF ORMED BY: [place] [address] PATHOLOGIST PACKING ROOM SUPERVISOR ELPIDIO DUMONT M.D. Performed By: #### H S TROP, CK #### [facility] [address] [place], [place] [id number] [place] Basophils/100 WBC (Bld) 1.4 % Normal . [facility] Comment on above: Performed By: #### H S TROP, CK #### [facility] [address] [place] [address] [place] Eosinophils (Bld) [#/Vol] 0.1 10*3/uL Normal 0.0-0.45 [facility] Comment on above: Performed By: #### H S TROP, CK #### [facility] [address] [place] [address] [place] Eosinophils/100 WBC (Bld) 1.2 % Normal . [facility] Comment on above: Performed By: #### H S TROP, CK #### [facility] [address] Erythrocyte distribution width (RBC) [Ratio] 14.1 % Normal 11.9-15.3 [facility] Comment on above: Performed By: #### H S TROP, CK #### [facility] [address] Hematocrit (Bld) [Volume fraction] 36.0 % Normal 34.0-46.4 [facility] [facility] Comment on above: Performed By: #### H S TROP, CK #### [address] Hemoglobin (Bld) [Mass/Vol] 12.2 g/dL Normal 11.8-15.4 [facility] Comment on above: Performed By: #### H S TROP, CK #### [facility] [address] [place] [address] [place] Lymphocytes (Bld) [#/Vol] 3.2 10*3/uL Normal 1.00-4.8 [facility] Comment on above: Performed By: #### H S TROP, CK #### [facility] [address] [place] [address] [place] Lymphocytes/100 WBC (Bld) 36.2 % Normal . [facility] Comment on above: Performed By: #### H S TROP, CK #### [facility] [address] MCH (RBC) [Entitic mass] 30.7 pg Normal 24.7-34.3 [facility] Comment on above: Performed By: #### H S TROP, CK #### [facility] [address] MCV (RBC) [Entitic vol] 90.9 fL Normal 80-100 [facility] Comment on above: Performed By: #### H S TROP, CK #### [facility] [address] Mean Corpuscular HGB Conc 33.8 g/dL Normal 32.0-35.0 [facility] Comment on above: Performed By: #### H S TROP, CK #### [facility] [address] Monocytes (Bld) [#/Vol] 0.4 10*3/uL Normal 0.0-0.8 [facility] Comment on above: Performed By: #### H S TROP, CK #### [address] Monocytes/100 WBC (Bld) 4.6 % Normal . [facility] Comment on above: Performed By: #### H S TROP, CK #### [facility] [address] Neutrophils (Bld) [#/Vol] 5.0 10*3/uL Normal 1.8-7.7 [facility] Comment on above: Performed By: #### H S TROP, CK #### [facility] [address] Neutrophils/100 WBC (Bld) 56.6 % Normal . [facility] Comment on above: Performed By: #### H S TROP, CK #### [facility] [address] NRBC% 0.1 /100{WBC} Normal 0-0.5 [facility] Comment on above: Performed By: #### H S TROP, CK #### [address] Platelet mean volume (Bld) [Entitic vol] 9.3 fL Normal 6.3-10.7 [facility] Comment on above: Performed By: #### H S TROP, CK #### [facility] [address] Platelets (Bld) [#/Vol] 213 10*3/uL Normal 150-450 [facility] Comment on above: Performed By: #### H S TROP, CK #### [facility] [address] RBC (Bld) [#/Vol] 3.96 10*6/uL Normal 3.60-5.00 [facility] Comment on above: Performed By: #### H S TROP, CK #### [address] WBC (Bld) [#/Vol] 8.9 10*3/uL Normal 3.8-11.6 [facility] Comment on above: Performed By: #### H S TROP, CK #### [address] Creatine Kinaseon 04-10-2023 CK [Catalytic activity/Vol] 268 U/L High 30-223 [facility] Comment on above: Performed By: #### G EMILIA #### Point of Care testing , CK [Catalytic activity/Vol] 238 U/L High 30-223 [facility] Comment on above: Performed By: #### H S TROP, CK #### [address] CK [Catalytic activity/Vol] 210 U/L Normal 30-223 [facility] Comment on above: Performed By: #### H S TROP, CK #### [address] ECG 12 lead ECGon 04-10-2023 ECG 12 lead ECG [facility] Main Outing [address] [place] [address] Electrocardiograph Report Signed Patient: Lorraine Mitchell MR#: [id number] 93 : 1975 Acct:[id number] Age/Sex: 47 / F ADM Date: 04/10/23 Loc: 4 Room: 7D0587-1 Type: ADM IN Attending Dr: Florentino Kenyon [...] (247) on 04/11/2023 3:52:37 PM Referred By: [facility] Electronically Signed By:DARRYL KEE MD Transcribed By: [facility] Signed By Darryl Kee MD 1552 [facility] ECH echo transthoracicon [facility] echo transthoracic [facility] [place] [address] Echocardiogram Signed Patient: Lorraine Mitchell MR#: [id number] 93 : 1975 Acct:[id number] Age/Sex: 47 / F ADM Date: 04/10/23 Loc: Room: [address] [place] [address] Type: ADM IN Attending Dr: Florentino Kenyon MD Ordering Provider: Florentino Kenyon MD Date of Service: 04/10/2301/23/1057 ECH/[facility] echo transthoracic: NSTMI Copies to: MD Grace [...] Signed By: Grace Solorio MD 04/10/23 1309 [facility] Glucose Poct Glucometerson 1 06-10-2022 Glucose [Mass/Vol] 201 mg/dL [facility] Comment on above: Result Comment: [place] om Glucose Reference Range is dependent on time and content of last meal. Glucose of more than 200 mg/dL in a nonstressed, ambulatory subject supports the diagnosis of Diabetes Mellitus. PERFORMED BY: [place] [address] PATHOLOGIST PACKING ROOM SUPERVISOR ELPIDIO DUMONT M.D. Performed By: #### G LULS #### Point of Care testing , Glucose [Mass/Vol] 214 mg/dL Normal [facility] Comment on above: Result Comment: [place] om Glucose Reference Range is dependent on time and content of last meal. Glucose of more than 200 mg/dL in a nonstressed, ambulatory subject supports the diagnosis of Diabetes Mellitus. PERFORMED BY: [place] [address] PATHOLOGIST PACKING ROOM SUPERVISOR ELPIDIO DUMONT M.D. Performed By: #### H S TROP, CK #### [facility] [address] [place] [address] Glucose [Mass/Vol] 196 mg/dL Normal [facility] Comment on above: Result Comment: [place] om Glucose Reference Range is dependent on time and content of last meal. Glucose of more than 200 mg/dL in a nonstressed, ambulatory subject supports the diagnosis of Diabetes Mellitus. PERFORMED BY: [place] [address] PATHOLOGIST PACKING ROOM SUPERVISOR ELPIDIO DUMONT M.D. Performed By: #### H S TROP, CK #### [address] Partial Thromboplastin Timeo n 04-10-2023 aPTT Coag (Bld) [Time] 26.1 s Normal 25.1-36.5 [facility] Comment on above: Result Comment: A he matocrit value greater than 55% may lead to inaccurate results in coagulation testing. Patients having hematocrit values >55% require a special collection tube for coagulation studies. Please contact the laboratory at [phone] for redraw instructions. PERFORMED BY: [place] [address] PATHOLOGIST PACKING ROOM SUPERVISOR ELPIDIO DUMNOT M.D. Performed By: #### G LULS #### Point of Care testing , Prothrombin Time INRon 04-10 INR Coag (PPP) [Relative time] 1.0 {INR} Normal [facility] Comment on above: Result Comment: INR [...] Coag (PPP) [Time] 12.1 s Normal 9.0-12.9 [facility] Comment on above: Result Comment: A he matocrit value greater than 55% may lead to inaccurate results in coagulation testing. Patients having hematocrit values >55% require a special collection tube for coagulation studies. Please contact the laboratory at [phone] for redraw instructions. Performed By: #### G LULS #### Point of Care testing , Troponin I High Sensitivityo n 04-10-2023 Troponin I High Sensitivity 1613.1 pg/mL Off scale high 0.0-15.0 [facility] Comment on above: Result Comment: Crit ical Result : Called to and read back by: TRE NASH at: 04/10/2023 18:42:30 by:DC PERFORMED BY: [facility] [address] [place] [address] PATHOLOGIST PACKING ROOM SUPERVISOR ELPIDIO DUMONT M.D. Performed By: #### G LULS #### Point of Care testing , Troponin I High Sensitivity 1083.2 pg/mL Off scale high 0.0-15.0 [facility] Comment on above: Result Comment: Crit ical Result : Called to and read back by: TRE NASH at: 04/10/2023 16:30:31 by:DC PERFORMED BY: [place] [address] PATHOLOGIST PACKING ROOM SUPERVISOR ELPIDIO DUMONT M.D. Performed By: #### H S TROP, CK #### [address] Troponin I High Sensitivity 899.4 pg/mL Off scale high 0.0-15.0 [facility] Comment on above: Result Comment: PERF ORMED BY: [place] [address] PATHOLOGIST PACKING ROOM SUPERVISOR ELPIDIO DUMONT M.D. Performed By: #### H S TROP, CK #### [address] XR chest 2V*on 04-10-2023 XR chest 2V* [facility] Main Outing [address] [place] [address] XRay Report Signed Patient: Lorraine Mitchell MR#: [id number] 93 : 1975 Acct:[id number] Age/Sex: 47 / F ADM Date: 04/10/23 Loc: Room: [address] [place] [address] Type: ADM IN Attending Dr: Florentino Kenyon [...] Ralf Kelly M.D.04/10/2023 3:17 PM Dictation Location: [place] [address] Transcribed By: [facility] 04/10/231516 Dictated By: Ralf Kelly II, MD 04/10/231514 Signed By: 04/10/23 151 [facility] FREE T4on 01-04-2022 Free T4 [Mass/Vol] 0.91 ng/dL Normal 0.76-1.46 [facility] Comment on above: Performed By: #### F T4 #### [facility] [address] [place] [address] Dr. Jane Alexis LAB TESTINGon 01-04-2022 RECV HEADER SEE SCANNED REPORT IN HPF [facility] Comment on above: Performed By: #### M ISC #### [facility] [address] [place] [address] Dr. Jane Alexis REV FROM REF LAB 01/05/22 [facility] Comment on above: Performed By: #### M ISC #### [facility] [address] [place] [address] Dr. Jane Alexis SENT TO REF LAB 01/04/22 [facility] Comment on above: Performed By: #### M ISC #### [facility] [address] [place] [address] Dr. Jane Alexis TSHon 01-04-2022 TSH 2.294 uIU/mL Normal 0.358-3.740 [facility] Comment on above: Performed By: #### T SH #### [facility] [address] [place] [address] Dr. Jane Alexis Physician Referralon 021 Physician Referral [id number] Normal [facility] Vital Signs Date Time Vital Sign Value Performing Clinician Facility 09-18-2023 15:52-0400 Body height 165.1 cm MD Mariela Lewis Work Phone: [facility] 09-18-2023 15:52-0400 Body mass index (BMI) [Ratio] 31.4 kg/m2 MD Mariela Lewis Work Phone: [facility] 09-18-2023 15:52-0400 Body weight 85.72 kg MD Mariela Lewis Work Phone: [facility] 09-18-2023 15:52-0400 Diastolic blood pressure 68 mm[Hg] MD Mariela Lewis Work Phone: [facility] 09-18-2023 15:52-0400 Heart rate 76 /min MD Mariela Lewis Work Phone: [facility] 09-18-2023 15:52-0400 Respiratory rate 18 /min MD Mariela Lewis Work Phone: [facility] 09-18-2023 15:52-0400 SaO2% (BldA) [Mass fraction] 96 % MD Mariela Lewis Work Phone: [facility] 09-18-2023 15:52-0400 Systolic blood pressure 122 mm[Hg] MD Mariela Lewis Work Phone: [facility] 07-24-2023 09:16-0500 Body height 165.1 cm MD Mariela Lewis Work Phone: [facility] 07-24-2023 09:16-0500 Body mass index (BMI) [Ratio] 31.8 kg/m2 MD Mariela Lewis Work Phone: [facility] 07-24-2023 09:16-0500 Body weight 86.63 kg MD Mariela Lewis Work Phone: [facility] 07-24-2023 09:16-0500 Diastolic blood pressure 82 mm[Hg] MD Mariela Lewis Work Phone: [facility] 07-24-2023 09:16-0500 Heart rate 80 /min MD Mariela Lewis Work Phone: [facility] 07-24-2023 09:16-0500 Respiratory rate 18 /min MD Mariela Lewis Work Phone: [facility] 07-24-2023 09:16-0500 SaO2% (BldA) [Mass fraction] 97 % MD Mariela Lewis Work Phone: [facility] 07-24-2023 09:16-0500 Systolic blood pressure 126 mm[Hg] MD Mariela Lewis Work Phone: [facility] 07-11-2023 15:46-0500 Body height 165.1 cm Nelida Eraz INTERVENTION SPECIALIST Work Phone: [facility] 07-11-2023 15:46-0500 Body mass index (BMI) [Ratio] 31.68 kg/m2 Nelida Aichholz INTERVENTION SPECIALIST Work Phone: [facility] 07-11-2023 15:46-0500 Body temperature 97.39 [degF] Nelida Aichholz INTERVENTION SPECIALIST Work Phone: [facility] 07-11-2023 15:46-0500 Body weight 86.36 kg Nelida Aichholz INTERVENTION SPECIALIST Work Phone: [facility] 07-11-2023 15:46-0500 Diastolic blood pressure 78 mm[Hg] Nelida Aichholz INTERVENTION SPECIALIST Work Phone: [facility] 07-11-2023 15:46-0500 Heart rate 96 /min Nelida Aichholz INTERVENTION SPECIALIST Work Phone: [facility] 07-11-2023 15:46-0500 Respiratory rate 18 /min Neldia Aichholz INTERVENTION SPECIALIST Work Phone: [facility] 07-11-2023 15:46-0500 SaO2% (BldA) [Mass fraction] 97 % Nelida Aichholz INTERVENTION SPECIALIST Work Phone: [facility] 07-11-2023 15:46-0500 Systolic blood pressure 118 mm[Hg] Nelida Aichholz INTERVENTION SPECIALIST Work Phone: [facility] 05-01-2023 11:40-0500 Body height 165.1 cm Stephanie Sweet Other [facility] 05-01-2023 11:40-0500 Body mass index (BMI) [Ratio] 31.95 kg/m2 Stephanie Marioge Other [facility] Other 05-01-2023 11:40-0500 Body weight 87.09 kg Stephanie Kee Other [facility] Other 05-01-2023 11:40-0500 Body weight 87.08 kg MD Mariela Lewis Work Phone: [facility] 05-01-2023 11:40-0500 Diastolic blood pressure 82 mm[Hg] Stephanie Kee Other [facility] 05-01-2023 11:40-0500 Respiratory rate 20 /min Stephanie Kee Other [facility] Other 05-01-2023 11:40-0500 SaO2% (BldA) [Mass fraction] 96 % Stephanie Kee Other [facility] Other 05-01-2023 11:40-0500 Systolic blood pressure 136 mm[Hg] Stephanie Kee Other [facility] 04-12-2023 11:44-0500 Body temperature 98.7 [degF] MD Mariela Lewis Work Phone: [facility] 04-12-2023 11:44-0500 Diastolic blood pressure 69 mm[Hg] MD Mariela Lewis Work Phone: [facility] 04-12-2023 11:44-0500 Heart rate 82 /min MD Mariela Lewis Work Phone: [facility] 04-12-2023 11:44-0500 Respiratory rate 18 /min MD Mariela Lewis Work Phone: [facility] 04-12-2023 11:44-0500 SaO2% (BldA) [Mass fraction] 95 % MD Mariela Lewis Work Phone: [facility] 04-12-2023 11:44-0500 Systolic blood pressure 113 mm[Hg] MD Mariela Lewis Work Phone: [facility] 04-12-2023 06:00-0500 Body weight 88.7 kg MD Mariela Lewis Work Phone: [facility] 04-12-2023 04:33-0500 Inhaled oxygen concentration 21 % MD Mariela Lewis Work Phone: [facility] 04-10-2023 10:18-0500 Body height 165.1 cm MD Mariela Lewis Work Phone: [facility] Encounters Encounter Date Encounter Type Care Provider Facility Start: 11-11-2023 End: 11-11-2023 ambulatory MARYELLEN SAUCEDO Not Available Start: 09-18-2023 End: 09-18-2023 ambulatory MD Mariela Lewis Work Phone: [facility] Work Phone: Start: 09-18-2023 End: 09-18-2023 Patient encounter procedure MD Mariela Lewis Work Phone: [facility] Work Phone: Start: 09-10-2023 End: 09-10-2023 ambulatory NELIDA AYAAN Not Available Start: 07-24-2023 End: 07-24-2023 ambulatory MD Mariela Lewis Work Phone: [facility] Work Phone: Start: 07-24-2023 End: 07-24-2023 Patient encounter procedure MD Mariela Lewis Work Phone: [facility] Work Phone: Start: 07-12-2023 End: 07-12-2023 ambulatory Stephanie Sweet Facility:[facility] Start: 07-12-2023 End: 07-12-2023 ambulatory MD Mariela Lewis Work Phone: [facility] Work Phone: Start: 07-12-2023 End: 07-12-2023 Patient encounter procedure MD Mariela Lewis Work Phone: [facility] Work Phone: Start: 07-11-2023 End: 07-11-2023 ambulatory NELIDA AICHHOLZ Not Available Start: 07-11-2023 End: 07-11-2023 Office outpatient visit 25 minutes Nelida Aichyez INTERVENTION SPECIALIST Work Phone: [facility] Comment on above: Type 2 diabetes gerald itus with hyperglycemia, without long-term current use of insulin (CMS/HCC) (Primary Dx); Obesity with body mass index (BMI) of 30.0 to 39.9; Tobacco user; Essential (primary) hypertension (CMS/HCC); Acute heart failure, unspecified heart failure type (CMS/HCC); Anxiety Start: 07-11-2023 Bamboo flowsheet Nelida Aichholz INTERVENTION SPECIALIST Work Phone: [facility] Start: 07-11-2023 Bamboo flowsheet Nelida Aichholz INTERVENTION SPECIALIST Work Phone: [facility] Start: 07-06-2023 Clinisync Result Encounter Nelida Aichholz INTERVENTION SPECIALIST Work Phone: [facility] Unsolicited Start: 07-06-2023 Clinisync Result Encounter Nelida Aichholz INTERVENTION SPECIALIST Work Phone: [facility] Unsolicited Start: 06-11-2023 End: 06-11-2023 ambulatory Stephanie Sweet Other [facility] Other Start: 06-11-2023 Telephone encounter Stephanie Davis Large Engine Assembler Start: 06-10-2023 End: 06-10-2023 ambulatory Stephanie Sweet Other [facility] Other Start: 06-10-2023 Telephone encounter Stephanie [facility] Start: 05-20-2023 End: 05-20-2023 ambulatory NELIDA PRESSLEYHYEZ Not Available Start: 05-08-2023 End: 05-08-2023 ambulatory Stephanie Sweet Other [facility] Other Start: 05-08-2023 Telephone encounter Stephanie Sweet [facility] Start: 05-01-2023 End: 05-01-2023 ambulatory Stephanie Sweet Other [facility] Other Start: 05-01-2023 Office outpatient vi sit 25 minutes Stephanie Kee [facility] Start: 05-01-2023 End: 05-01-2023 Patient encounter procedure MD Mariela Lewis Work Phone: [facility] Work Phone: Start: 04-10-2023 End: 04-12-2023 Evaluation and management of inpatient Florentino Kenyon Facility:[facility] Start: 04-10-2023 End: 04-12-2023 Evaluation and management of inpatient MD Mariela Lewis Work Phone: [facility] [place] [facility] Work Phone: Start: 01-04-2022 End: 01-05-[address] MARIELA LEWIS Facility:H1 Procedures Date Procedure Procedure Detail Performing Clinician Start: 07-06-2023 ALL LIPID PROFILE (FASTING) Nelida Nandahholz INTERVENTION SPECIALIST Work Phone: Start: 07-06-2023 [facility] ALT Nelida Aichh olz INTERVENTION SPECIALIST Work Phone: Start: 07-06-2023 [facility] AST Nelida Aichh olz INTERVENTION SPECIALIST Work Phone: Start: 04-11-2023 MD Mariela Lewis [...] Screening for malign ant neoplasm of cervix [facility] Start: 09-09-2023 End: 09-09-2023 Patient encounter procedure 09/09/2023 3:40 PM EDT Office Visit [facility] [address] [place] [id number] Nelida Ambrosio NP [address] [place] [phone] [facility] Start: 08-02-2023 Hemoglobin A1c measurement Diabetes: Hemoglobin A1C [facility] Start: 08-02-2023 Screening for malign ant neoplasm of breast Mammogram [facility] Comment on above: Postponed from 09/19 (Other Medical Reasons) Start: 07-11-2023 End: 07-11-2023 Patient encounter procedure 07/11/2023 3:40 PM EST Office Visit [facility] [address] [place] [address] Nelida Ambrosio NP [address] [place] [phone] [facility] Start: 04-12-2023 [facility] Start: 04-10-2023 Hospital admission [facility] Start: 04-10-2023 Sleep disorder assessment [facility] Start: 02-01-2023 Influenza vaccination Influenza Vacc ine (#1) [facility] Start: 11-14-1995 Screening for malign ant neoplasm of cervix Pap Smear [facility] Start: 1993 Urine screening for protein Diabetes: Urine Protein Screening [facility] Start: 1984 Glaucoma screening Diabetes: R etinopathy Screening [facility] Start: 1975 Screening for malign ant neoplasm of colon [facility] Patient Education Coronary Angio plasty (DC) Coronary Stenting (DC) Angina (DC) Chest Pain (DC) Coronary Artery Disease (DC) Coronary artery disease in women Drug Eluting Stents [facility] Work Phone: Patient referral [facility] Work Phone: Payers Date Payer Category Payer Private Health Insurance [facility] [id number] 2023 Self-pay [id number] 2019 Private Health Insurance LAURENJENNIFER Rosa Isela FITZGERALD [id number] 2019-Present [address] [place] [address] [id number] 1975 Unknown [id number] 1975 Unknown [id number] 1975 Unknown [id number] 1975 Unknown [id number] 1975 Unknown [id number] 1960 Private Health Insurance [facility] [id number] Unknown [id number] Unknown [id number] Social History Date Type Detail Facility Start: 04-11-2023 End: 07-24-2023 Tobacco smoking status NHIS Smoker (finding) [facility] Start: 1975 Sex Assigned At Female F [facility] Start: 05-20-2023 End: 07-11-2023 Sex Assigned At [facility] Start: 05-20-2023 Tobacco smoking stat [facility] Smokes tobacco daily [facility] History [...] Only a little [facility] (I/We) worried whejoey er (my/our) food would run out before (I/we) got money to buy more. Never true [facility] Start: 05-20-2023 Alcohol Comment Pepsi:2 cups daily [facility] Start: 1975 Sex Assigned At Not on file [facility] Start: 09-18-2023 Tobacco smoking stat [facility] Ex-smoker (finding) [facility] Medical Equipment Procedure Code Equipment Code Equipment Origin al Text Equipment Identifier Dates CL STENT GARTH FRONTIER 3.5 X 15 FDA Start: 04-11-2023 USE 1 A DAY [id number] Start: 04-17-2023 USE 1 DAILY [id number] Start: 04-17-2023 CL STENT GARTH FRONTIER 3.5 X 15 FDA Start: 04-11-2023 CL STENT GARTH FRONTIER 3.5 X 15 FDA Start: 04-11-2023 CL STENT GARTH FRONTIER 3.5 X 15 FDA Start: 04-11-2023 Blood Sugar Diagnostic (True Metrix Glucose Test Strip) strip Start: 09-18-2023 Goals Date Patient Goal Desired Activity /State Functional Status Date Assessment Result Facility 04-12-2023 Functional status Patient at Baseline [facility] Work Phone: Mental Status Date Assessment Result Facility 04-12-2023 Cognitive function Cognitive Sta tus Patient at Baseline [facility] Work Phone: Clinical Notes 04-10-2023 to 07-24-2023 Note Date & Type Note Facility 07-24-2023 Evaluation note Authored July 24, 2023 1:06pm Ms Mitchell is a a 47 yr old fe male, seen at [facility] on 04/10/2023 for NSTEMI. Cath and PCI to the LAD was successful. Unsuccessful attempt to cross the RCA lesion. HX of DM type 2, HTN, PIPPA, hyperlipidemia. ECHO 04/10/2023: EF of 25-30% with grade 1 diastolic dysfunction. Trace MR, trace TR. [facility] 04/11/2023 consistent with severe two-vessel CAD-70% proximal LAD and 100% proximal RCA. Status post PCI to proximal LAD with 3.5 x 15 mm [place] NILSA. RCA was deemed to be ILLUMINATOR. Assessment: 2v CAD s/p PCI to LAD (presented with NSTEMI) Ischemic cardiomyopathy/Systolic heart failure. Euvolemic Hypertension Hyperlipidemia Diabetes type 2 Active tobacco use Family history of premature CAD Morbid obesity PIPPA not compliant with CPAP Plan: - [facility] 04/11/2023 consistent with severe two-vessel CAD-70% proximal LAD and 100% proximal RCA. Status post PCI to proximal LAD with 3.5 x 15 mm [place] NILSA. RCA was deemed to be ILLUMINATOR. - Repeat ECHO 07/12/23 showed improved EF [...] with cardiac rehab. -Follow-up in 2 months. [facility] Work Phone: [phone]) 615-853402-08-2024 History of Present illness Narrative* Nelida Ambrosio [...] instructions are 1/2 pill daily, lot # [id number] * ZANE GRIGGS - 07/11/2023 3:40 PM EST Echo tomorrow Baking Assistant on 07/24 Sleep study 07/22 Pt asking if she needs another refill on the brillanta 90mg * Nelida Haydenyejorge, INTERVENTION SPECIALIST - 07/11/2023 3:40 PM EST Images from [...] no compliance problems. Hypertensive end-organ damage includes CAD/PR, heart failure andleft ventricular hypertrophy. Diabetes She [...] Medical History: Diagnosis Date Acute heart failure ([facility]) 05/09/2023 Acute hemorrhoid Anxiety 05/09/2023 Aphthous ulcer Cold sore Coronary artery disease involving [place] coronary artery of [place] heart with angina pectoris ([facility]) 05/09/2023 COVID-19 viremia Depression ([facility]) Diastasis recti Essential (primary) hypertension ([facility]) 05/09/2023 Eustachian salpingitis, left Hypertriglyceridemia ([facility]) hypertriglycerides Hypothyroidism (acquired) ([facility]) 05/09/2023 Left ankle swelling Mixed hyperlipidemia ([facility]) 05/09/2023 Obesity with body mass index (BMI) of 30.0 to 39.9 07/11/2023 PIPPA (obstructive sleep apnea) 05/08/2023 Right ovarian cyst Right-sided Pa's palsy Sinusitis, bacterial Toe pain, left Type 2 diabetes mellitus with hyperglycemia, without long-term current use of insulin ([facility]) 05/09/2023 Yeast infection of the vagina 04/29/2023 Past Surgical History: Procedure Laterality Date ADENOIDECTOMY 1981 SECTION, LOW TRANSVERSE 2003 CHOLECYSTECTOMY 2009 HYSTERECTOMY 11/2020 TLH, BSO TONSILLECTOMY [...] instructions are 1/2 pill daily, lot # [id number] Essential (primary) hypertension (CMS/HCC) - Primary Acute heart failure (CMS/HCC) Continue with cardiology Has echo tomorrow Anxiety Doing ok on sertraline, we will increase buspirone to 7.5mg BID Fu in 2 months Relevant Medications busPIRone (Buspar) 7.5 MG tablet Obesity with body mass index (BMI) of 30.0 to 39.9 Tobacco user documented in this encounterPhelps [id number] Evaluation note* Encounter Date Diagnosis Assessment Notes Treatment Notes Treatment Clinical Notes May, Ischemic cardiomyopathy (ICD-10 - I25.5) [facility] Other 11-29-2023 Evaluation note* Encounter Date Diagnosis Assessment Notes Treatment Notes Treatment Clinical Notes Apr, History of non-ST elevation myocardial infarction (NSTEMI) (ICD-10 - I25.2) Ms Mitchell is a a 47 yr old female, seen [place] [facility] [place] 04[place]10[place]23 for NSTEMI. Cath and PCI to the LAD was successful. Unsuccessful attempt to cross the RCA lesion. HX of DM type 2, HTN, PIPPA, hyperlipidemia. ECHO 04/10/2023: EF of 25-30% with grade 1 diastolic dysfunction. Trace MR, trace TR. [facility] 04/11/2023 consistent with severe two-vessel CAD-70% proximal LAD and 100% proximal RCA. Status post PCI to proximal LAD with 3.5 x 15 mm [place] NILSA. RCA was deemed to be ILLUMINATOR. Assessment: 2v CAD s/p PCI to LAD (presented with NSTEMI) Systolic heart failure. Euvolemic Hypertension Hyperlipidemia Diabetes type 2 Active tobacco use Family history of premature CAD Morbid obesity PIPPA not compliant with CPAP Plan: - [facility] 04/11/2023 consistent with severe two-vessel CAD-70% proximal LAD and 100% proximal RCA. Status post PCI to proximal LAD with 3.5 x 15 mm [place] NILSA. RCA was deemed to be ILLUMINATOR. -Continue DAPT-aspirin 81 mg daily plus Brilinta [...] I25.5) Apr, Post PTCA (ICD-10 - Z98.61) [facility] Other 11-10-2023 Hospital Discharge instructions Additional Instructions [...] doctor or pharmacist, without first calling the environmental conservation professor who implanted the stent. If you require [...] weight lifting, stair steppers, etc. until the environmental conservation professor approves these activities. Check with the environmental conservation professor on your first follow-up visit. CALL YOUR PHYSICIAN at [phone]: -If bleeding should occur from the catheter insertion site- apply pressure to the site then immediately call us. -Report any fever, redness, drainage, increased swelling, or firmness at the catheter insertion site. Some bruising or slight swelling may be present at the time of discharge. -Should arm or leg become cold, numb, white, or blue, contact the environmental conservation professor immediately. -IF you should experience episodes of [...] is recommended. Please call Central Scheduling at [phone] to schedule your appointment.] The attending environmental conservation professor or [facility] nurse clinician should provide you with specific instructions regarding activity, diet, medications, and further follow up for you. Follow the medication instructions provided on your discharge. If the dosages and instructions on this sheet differ from the dosage and instructions on the bottle, follow the instructions on the bottle. [facility] is not responsible for incorrect prescription information provided by the patient during their visit. Do not stop your medications without consulting your health care provider. Please take the list with you to your next doctor's appointment.[facility] Work Phone: 1(214) 935-453711-10-2023 Discharge summary Author Florentino Kenyon [facility] April 12, 2023 9:01am Note Date/Time April 12, 2023 9:01am [facility] [address] [place] [address] Discharge Summary Signed Patient: Lorraine Mitchell MR#: [id number] : 1975 Acct:[id number] Age/Sex: 47 / F Adm Date: 3 Loc: Room: [address] [place] [address]: Florentino Kenyon MD Copies to: [...] stented with a 3.5 x 15 mm Garth stent at 18 john with a residual stenosis of 0% SHIRA-3 flow no other disease in the LAD or diagonal branch system. S/p attempt PCI RCA In the proximal portion of the RCA there appeared to be a acutely thrombotic lesion with SHIAR 0 flow and a reference vessel 3.5 [...] doctor or pharmacist, without first calling the environmental conservation professor who implanted the stent. If you require [...] weight lifting, stair steppers, etc. until the environmental conservation professor approves these activities. Check with the environmental conservation professor on your first follow-up visit. CALL YOUR PHYSICIAN at [phone]: -If bleeding should occur from the catheter insertion site- apply pressure to the site then immediately call us. -Report any fever, redness, drainage, increased swelling, or firmness at the catheter insertion site. Some bruising or slight swelling may be present at thetime of discharge. -Should arm or leg become cold, numb, white, or blue, contact the environmental conservation professor immediately. -IF you should experience episodes of [...] is recommended. Please call Central Scheduling at [phone] to schedule your appointment.] The attending environmental conservation professor or [facility] nurse clinician should provide you with specific instructions regarding activity, diet, medications, and further follow up for you. Follow the medication instructions provided on your discharge. If the dosages and instructions on this sheet differ from the dosage and instructions on the bottle, follow the instructions on the bottle. [facility] is not responsible for incorrect prescription [...] <Electronically signed by Florentino Kenyon MD> 04/12/23 0901 [facility] Work Phone: 1(688) 873-903911-09-2023 Consult note Author W [facility] April 11, 2023 6:12pm Note Date/Time April 11, 2023 6 :12pm [facility] [address] [place] [address] Cardiology Consult Note Signed Patient: Lorraine Mitchell MR#: [id number] : 1975 Acct:[id number] Age/Sex: 47 / F Adm Date: 3 Loc: Room: [address] [place] [address] Type: ADM IN Attending Dr: Florentino Kenyon MD Copies to: MD Mariela Skinner MD W Scott Diego, DO~ Cardiology HPI History of Present Illness Consult Date: 04/11/23 Reason for Consult: Non-ST elevation PR, two-vessel ASHD, ischemic cardiomyopathy HPI: Ms. Mitchell [...] premature CAD. Patient initially presented to [facility] where troponin was positive: 248-256. BNP elevated at 1327. EKG showed sinus tachycardia. Echo today shows EF of 25-30% with grade 1 diastolic dysfunction. Trace MR, trace TR. Troponin trend on arrival [phone] Catheterization was reviewed with primary environmental conservation professor, there is appears to be athrombotic occlusion of the proximal dominant RCA, and moderate 70% disease of the proximal LAD. We will proceed with PCI of the LAD, and attempted crossing of what appears to be a thrombotic occlusion of the RCA. [facility] Medical History (Updated 04/10/23 @ [...] Lymph # (Auto) 3.2 3.0 (1.00-4.8) x10E3/uL Lamar # (Auto) 0.4 0.5 (0.0-0.8) x10E3/uL Eos [...] <Electronically signed by Magali Cortez DO> 04/11/23 8538 [facility] Work Phone: 1(365) 482-281511-09-2023 Progress note Author Stephanie Sweet [facility] April 11, 2023 1:12pm Note Date/Time April 11, 2023 1 :09pm [facility] [address] [place] [address] Cardiology Progress Note Signed Patient: Lorraine Mitchell MR#: [id number] : 1975 Acct:[id number] Age/Sex: 47 / F Adm Date: 3 Loc: 4P Room: [address] [place] [address] Type: ADM IN Attending Dr: Florentino Kenyon [...] premature CAD. Patient initially presented to [facility] where troponin was positive: 248-256. BNP elevated at 1327. EKG showed sinus tachycardia. Echo today shows EF of 25-30% with grade 1 diastolic dysfunction. Trace MR, trace TR. Interim history 04/11/2023: Troponin continues to uptrend 899-->2200. Reports minimal chest pain today. Heparin drip restarted last night. [facility] today Exam Physical Exam Vital Signs: [...] Laboratory Results - last 24 hr 04/10/23 04/10/2323 12:08 14:16 16:46 Corrected WBC Uncorrected WBC Count RBC Hgb Hct MCV MCH MCHC RDW Plt Count MPV Neut % (Auto) Lymph % (Auto) Lamar % (Auto) Eos % (Auto) Baso % (Auto) Nucleat RBC Rel Count Neut # (Auto) Lymph # (Auto) Lamar # (Auto) Eos # (Auto) Baso # [...] % (Auto) 56.6 Lymph % (Auto) 36.2 Lamar % (Auto) 4.6 Eos % (Auto) 1.2 Baso % (Auto) 1.4 Nucleat RBC Rel Count 0.1 Neut # (Auto) 5.0 Lymph # (Auto) 3.2 Lamar # (Auto) 0.4 Eos # (Auto) 0.1 [...] MPV Neut % (Auto) Lymph % (Auto) Lamar % (Auto) Eos % (Auto) Baso % (Auto) Nucleat RBC Rel Count Neut # (Auto) Lymph # (Auto) Lamar # (Auto) Eos # (Auto) Baso # [...] % (Auto) 59.4 Lymph % (Auto) 33.4 Lamar % (Auto) 5.8 Eos % (Auto) 0.9 Baso % (Auto) 0.5 Nucleat RBC Rel Count 0.1 Neut # (Auto) 5.3 Lymph # (Auto) 3.0 Lamar # (Auto) 0.5 Eos # (Auto) 0.1 [...] MPV Neut % (Auto) Lymph % (Auto) Lamar % (Auto) Eos % (Auto) Baso % (Auto) Nucleat RBC Rel Count Neut # (Auto) Lymph # (Auto) Lamar # (Auto) Eos # (Auto) Baso # [...] premature CAD. Patient initially presented to [facility] where troponin was positive: 248-256. BNP elevated at 1327. EKG showed sinus tachycardia. Echo today shows EF of 25-30% with grade 1 diastolic dysfunction. Trace MR, trace TR. Troponin trend on arrival [phone] Assessment: NSTEMI Systolic heart failure. Euvolemic Hypertension [...] follow. Documented By: Stephanie Sweet MD 04/11/23 1200 Signed By: <Electronically signed by Stephanie Sweet MD> 04/11/23 1312 [facility] Work Phone: 1(739) 876-338111-09-2023 Procedure [facility]11-09-2023 Procedure [facility]11-09-2023 Progress note Author Florentino Kenyon [facility] April 11, 2023 9:50am Note Date/Time April 11, 2023 9 :48am [facility] [address] [place], [place] [id number] Hospitalist Progress Note Signed Patient: Lorraine Mitchell MR#: [id number] : 1975 Acct:[id number] Age/Sex: 47 / F Adm Date: 3 Loc: 4P Room: [address] [place] [address] Type: ADM IN Attending Dr: Florentino Kenyon [...] Protocol Losartan Potassium 50 mg 04/11/23 09:00 11/09/23 08:17 Losartan 50 Mg Tablet PO 04/10/24 [...] signed by Florentino Kenyon MD> 04/11/23 0950 [facility] Work Phone: 1([phone]) 351-421311-08-2023 Consult note Author Stephanie Sweet [facility] April 10, 2023 8:00pm Note Date/Time April 10, 2023 7 :53pm [facility] [address] [place] [address] Cardiology Consult Note Signed Patient: Lorraine Mitchell MR#: [id number] : 1975 Acct:[id number] Age/Sex: 47 / F Adm Date: 3 Loc: Room: [address] [place] [address] Type: ADM IN Attending Dr: Florentino Kenyon [...] premature CAD. Patient initially presented to [facility] where troponin was positive: 248-256. BNP elevated at 1327. EKG showed sinus tachycardia. Echo today shows EF of 25-30% with grade 1 diastolic dysfunction. Trace MR, trace TR. Review of Systems Review of Systems All other systems reviewed & are negative unless noted below or in HPI [facility] Medical History (Updated 04/10/23 @ 11:06 by Florentino Kenyon MD) Diabetes PIPPA (obstructive sleep apnea) Surgical History (Updated 04/10/23 @ 10:35 by Kathya Arambula, KENDRICK) H/O: hysterectomy History of cholecystectomy Family History (Updated 04/10/23 @ 10:35 by Kathya Arambula, KENDRICK) Sister Pancreatic cancer Father Colon cancer Father [...] premature CAD. Patient initially presented to [facility] where troponin was positive: 248-256. BNP elevated at 1327. EKG showed sinus tachycardia. Echo today shows EF of 25-30% with grade 1 diastolic dysfunction. Trace MR, trace TR. Troponin trend on arrival [phone] Assessment: NSTEMI Systolic heart failure. Euvolemic Hypertension [...] <Electronically signed by Stephanie Sweet MD> 04/10/231999 [facility] Work Phone: [phone] 829-163511-08-2023 Evaluation note* Author Stephanie Sweet [facility] Authored July 24, 2023 10:10am Ms Mitchell is a a 47 yr old fe male, seen at [facility] on 04/10/2023 for NSTEMI. Cath and PCI to the LAD was successful. Unsuccessful attempt to cross the RCA lesion. HX of DM type 2, HTN, PIPPA, hyperlipidemia. ECHO 04/10/2023: EF of 25-30% with grade 1 diastolic dysfunction. Trace MR, trace TR. [facility] 04/11/2023 consistent with severe two-vessel CAD-70% proximal LAD and 100% proximal RCA. Status post PCI to proximal LAD with 3.5 x 15 mm [place] NILSA. RCA was deemed to be ILLUMINATOR. Assessment: 2v CAD s/p PCI to LAD (presented with NSTEMI) Ischemic cardiomyopathy/Systolic heart failure. Euvolemic Hypertension Hyperlipidemia Diabetes type 2 Active tobacco use Family history of premature CAD Morbid obesity PIPPA not compliant with CPAP Plan: - [facility] 04/11/2023 consistent with severe two-vessel CAD-70% proximal LAD and 100% proximal RCA. Status post PCI to proximal LAD with 3.5 x 15 mm [place] NILSA. RCA was deemed to be ILLUMINATOR. - Repeat ECHO 07/12/23 showed improved EF [...] with cardiac rehab. -Follow-up in 2 months. [facility] Work Phone: 1(832) 689-729211-08-2023 History and physical note Author Florentino Kenyon [facility] April 10, 2023 11:10am Note Date/Time April 10, 2023 1 1:10am [facility] [address] [place] [address] Hospitalist H&P Signed Patient: Lorraine Mitchell MR#: [id number] : 1975 Acct:[id number] Age/Sex: 47 / F Adm Date: 3 Loc: 4P Room: [address] [place] [address] Type: ADM IN Attending Dr: Florentino Kenyon [...] noted below or in HPI [facility] Medical History (Updated 04/10/23 @ [...] signed by Florentino Kenyon MD> 04/10/23 1110 [facility] Work Phone: evaluation note* Diagnosis Onset Date Resolution Status Diabetes type 2, controlled acute Hyperlipidemia acute Hypertension acute Nicotine abuse acute Non-STEMI (non-ST elevated myocardial infarction) acute PIPPA (obstructive sleep apnea) acute [facility] Work Phone: Evaluation noteNo InformationNort [employer] Other Evaluation noteNo assessment information available [facility] Work Phone: evalufialv note* Diagnosis Type 2 diabetes mellitus with hyperglycemia, without long-term current use of insulin (CMS/HCC)- Primary Obesity with body mass index (BMI) [...] of, Problem Comment : Cholecystectomy Lap - [place] 2009 Umbilical hernia repair - [facility] - 2007 3 cysts removed from ovaries 1996 2003 Surgical History 2: Tonsils and adenoids , Probl em Status : Active, Surgical History 1: Problem Title : s urgical procedures, hx of, Problem Description : surgical procedures, hx of, Problem Comment : Cholecystectomy Lap 2009 Umbilical hernia repair 3 cysts removed from ovaries 1996 2003 Tonsils and adenoids , Problem Surgical History 2: Status : Active, Surgical History cath/PCI 04/2023 Hospitalization History NSTEMI 04/2023 [facility] Other Progress note Author Stephanie Sweet [facility] April 12, 2023 2:38pm Note Date/Time April 12, 2023 2:30pm [facility] [address] [place] [address] Cardiology Progress Note Signed Patient: Lorraine Mitchell MR#: [id number] : 1975 Acct:[id number] Age/Sex: 47 / F Adm Date: 3 Loc: Room: [address] [place] [address] Type: ADM IN Attending Dr: Florentino Kenyon [...] premature CAD. Patient initially presented to [facility] where troponin was positive: 248-256. BNP elevated at 1327. EKG showed sinus tachycardia. Echo today shows EF of 25-30% with grade 1 diastolic dysfunction. Trace MR, trace TR. Interim history 04/11/2023: Troponin continues to uptrend 899-->2200. Reports minimal chest pain today. Heparin drip restarted last night. [facility] today Interim history 04/12/2023: Status post [facility] and PCI to LAD. No acute events [...] premature CAD. Patient initially presented to [facility] where troponin was positive: 248-256. BNP elevated at 1327. EKG showed sinus tachycardia. Echo today shows EF of 25-30% with grade 1 diastolic dysfunction. Trace MR, trace TR. Troponin trend on arrival [phone] Assessment: NSTEMI Systolic heart failure. Euvolemic Hypertension Hyperlipidemia Diabetes type 2 Active tobacco use Family history of premature CAD Morbid obesity PIPPA not compliant with CPAP Recommendations: - [facility] 04/11/2023 consistent with severe two-vessel CAD-70% proximal LAD and 100% proximal RCA. Status post PCI to proximal LAD with 3.5 x 15 mm [place] NILSA. RCA was deemed to be ILLUMINATOR. Appreciate Dr Cortez's assistance in this case. [...] cardiology. Documented By: Stephanie Sweet MD 04/12/23 1127 Signed By: <Electronically signed by Stephanie Sweet MD> 04/12/23 1438 [facility] Work Phone: Reason for visit NarrativeCARDIAC REHAB REFERRAL UPDATEWilmington [employer] Other Summary Purpose Family History No Family History Records Found Relationship Condition Age at Onset Recorded Date/T [...] bypass Unknown brother Hypertension Unknown Advance Directives No Advanced Directives Records Found Advance Directive Response Recorded Date/ Time Advance Directives No November 15 12:56pm Advance Directive Response Recorded Date/ Time Advance Directives No November 15 1:56pm Chief Complaint and Reason for Visit Chief Complaint Non Stemi Reason for Visit Diabetes type 2, con trolled Hyperlipidemia Hypertension Nicotine abuse Non-STEMI (non-ST elevated myocardial infarction) PIPPA (obstructive sleep apnea) Chief Complaint [facility]: 2wks i25.2 I25.5 Chief Complaint [facility]: 2wks i25.2 I25.5 3 month follow up [...] Provider Specialty Cardiovascu lar Disease Referred Organization [facility] Referred Address [address] [place], [place],[address] Referred Provider Specialty Cardiology Referral Priority Routine General Notes Cecilia Acuña 02:15:12 PM >received today, attachments made, waiting for notes to be locked Clinical Notes central scheduling f: [phone] Additional Source Comments INFORMATION SOURCE (unrecogn ized section and content) DATE CREATED AUTHOR 08/19/2020 [facility] DATE CREATED AUTHOR AUTHOR'S ORGANIZ ATION 01/08/2022 [facility] DATE CREATED AUTHOR AUTHOR'S ORGANIZ ATION 07/13/2023 [facility] DATE CREATED AUTHOR AUTHOR'S ORGANIZ ATION 11/11/2023 [facility] EPIC Care Teams (unrecognized sec tion and content) Team Status: Active Member Role Status Dates Mariela Lewis MD Primary Care Provider Active Team Status: Inactive Member Role Status Dates Mariela Lewis MD Primary Care Provider Active Florentino Kenyon MD Admit Provider, Attending Provider A ctive Pediatric Assistant Relationship Specialty Start Date End Date Thom Weinberg MD [address] [place] [phone] PCP - General Family Medicine 05/20/23 Nelida Ambrosio NP [address] [place] [phone] Nurse Practitioner Family Medicine 04/19/23 Team Status: [...] July 12, 2023 End: July 12, 2023 Pediatric Assistant Relationship Specialty Start Date End Date Thom Weinberg MD [address] [place] [phone] PCP - General Family Medicine 05/20/23 Nelida Ambrosio NP [address] [place] [address] Nurse Practitioner Family Medicine 04/19/23 Pediatric Assistant Relationship Specialty Start Date End Date Thom Weinberg MD [address] [place] [phone] PCP - General Family Medicine 05/20/23 Nelida Ambrosio NP [address] [place] [address] Nurse Practitioner [facility] Medicine 04/19/23 Team Status: Inactive Member Role [...] FOR VISIT (unrecogniz ed section and content) [facility]: 2WKSClinical Acute Ill nessClinical Goals (unrecognized section [...] BE BASED ON THE PRIMARY CLINICAL RECORDS. [facility] [employer] [facility]. provides no warranty or guarantee of the accuracy or completeness of information in this document.
[2023-12-24 08:27] VITALS: BP 159/80; PULSE 80; TEMP 36.1; O2SAT 97; BMI 32.2
[2023-12-24 08:35] LABS: HCG Qualitative NEGATIVE (NEGATIVE); Internal Control Within Normal Limits
[2023-12-24 08:41] LABS: Glucometer 175 mg/dL (74-106)
[2023-12-24] MEDS: LACTATED RINGER'S SOLUTION 1,000 ML 50 ML IV (08:43)
[2023-12-24 10:36] VITALS: BP 103/57; PULSE 71; TEMP 36.5; O2SAT 98
--- NOTE | 2023-12-24 10:42 | W.PM.PROCNOT ---
Date of procedure: 12/24/23 Pre-op diagnosis: screening colonoscopy Post-op diagnosis: same as pre-op Procedure: Previous colonoscopy: never procedure: screening colonoscopy The patient was given IV conscious sedation.? The patient's SPO2 remained above 90% throughout the procedure. The colonoscope was inserted per rectum and advanced under direct vision to the cecum without difficulty.? The prep was good.? Findings: Terminal ileum os: normal Cecum/Ascending colon: normal Transverse colon: normal Descending/Sigmoid colon: normal Rectum/Anus: examined in normal and retroflexed positions and was normal Withdrawal Time was (minutes): 8 The colon was decompressed and the scope was removed.? The patient tolerated the procedure well. Recommendations/Plan: 1.? Lifestyle and dietary modifications as discussed 2.? F/U 10 years 3.? Discussed with the family Surgeon: Bravo Rodriguez Estimated blood loss (mL): 0 Pathology: none sent Condition: stable Disposition: PACU
[2023-12-24 10:51] VITALS: BP 147/85; PULSE 73; O2SAT 100
[2023-12-24 11:06] VITALS: BP 170/96; PULSE 72; O2SAT 99
== END 2023-12-24 11:06 | disposition home or self-care (01) ==
PROVIDERS: Anesthesiology; PCP Nurse Practitioner; Visit Provider Surgery
PROC: (CPT 812; principal; 2023-12-24 09:20)
DX: Z12.11 Encounter for screening for malignant neoplasm of colon (principal); Z80.0 Family history of malignant neoplasm of digestive organs; Z79.82 Long term (current) use of aspirin; F17.210 Nicotine dependence, cigarettes, uncomplicated; Z90.49 Acquired absence of other specified parts of digestive tract; Z90.710 Acquired absence of both cervix and uterus; E78.5 Hyperlipidemia, unspecified; I10 Essential (primary) hypertension; I25.10 Atherosclerotic heart disease of native coronary artery without angina pectoris; I25.2 Old myocardial infarction; Z95.5 Presence of coronary angioplasty implant and graft; E11.9 Type 2 diabetes mellitus without complications; Z79.84 Long term (current) use of oral hypoglycemic drugs; E03.9 Hypothyroidism, unspecified
CPT/HCPCS: 45378; 36415; 82948; 84703; J2704

== ENCOUNTER 2024-01-27 08:01 | Outpatient (OUT) | payer OTHER, SELFPAY ==
--- OUTSIDE RECORDS SUMMARY | 2024-01-27 08:21 | XMS_ITS | CCD ---
Author Organization [facility] Inform ion Partnership [facility] Care Team Providers Care E Learning Manager Name Role Phone DR SHILPA LEWIS Admitting Unavailable DR SHILPA LEWIS Attending Unavailable DR SHILPA LEWIS Primary Care Unavailable DR SHILPA LEWIS Consulting Unavailable MD Shilpa Lewis Primary Care Provider MD Florentino Kenyon Admit Provider MD Florentino Kenyon Attending Provider [phone] Stephanie Sweet Unavailable Nelida Ambrosio NP Unavailable Thom Weinberg MD Primary Care Provider [phone] MD Shilpa Lewis Primary Care Provider MD Stephanie Sweet Attending Provider [phone] Florentino Kenyon Admitting Unavailable Florentino Kenyon Attending Unavailable Shilpa Lewis Primary Care Unavailable Stephanie Sweet Consulting Unavailable Stephanie Sweet Attending Unavailable Shilpa Lewis Primary Care Unavailable Stephanie Sweet Admitting Unavailable MD Shilpa Lewis Primary Care Provider [phone] MD Stephanie Sweet Attending Provider [phone] NELIDA AMBROSIO Attending Unavailable NELIDA AMBROSIO Attending Unavailable MARYELLEN SAUCEDO Attending Unavailable NELIDA AMBROSIO Attending Unavailable NELIDA AMBROSIO Attending Unavailable Medications Current Medications Medication Drug [...] Start: 09-18-2023 Hydrocortisone Acetate Active 25 MG CO Daily September 18, 2023 12:00am isopropyl alcohol [...] Active oral daily for 0 *Reorder from [employer] for eRx and Interaction Alerts* May, Not-Taking/PRN Start: 05-09-2022 take 1 tablet by juan m th once daily Levothyroxine 75mcg levothyroxine 75mcg, 1 (one) Tablet daily # 90, 05/09/2022, No Refill. Active oral daily for 0 *Reorder from [employer] for eRx and Interaction Alerts* May, Not-Taking [...] hyperglycemia, without long-term current use of insulin (CMS/[facility]) Take 2 tablets (1,000 mg) by [...] two times daily for 0 *Reorder from [employer] for eRx and Interaction Alerts* Mar, Active 24 hr nicotine 0.583 mg/hr transdermal system (1 source) Cholinergic Nicotinic Agonist Start: 09-18-2023 apply 1 dose transdermal route once daily Nicotine Active 1 PATCH TRANSDERML Daily September 18, 2023 12:00am nitroglycerin 0.4 mg sublingual tablet (13 sources) Nitrate Vasodilator Start: 04-12-2023 End: 07-24-2023 Nitroglycerin Active 0.4 MG SUBLINGUAL Q5M July 24, 2023 5:03pm do not exceed 3 doses per episode Nitroglycerin 0. 4 MG as directed Sublingual Active sacubitril 24 mg / valsartan 26 mg oral tablet (1 source) Angiotensin 2 Receptor Raina Start: 07-24-2023 take 1 tablet by mouth twice daily Sacubitril-Valsartan (Entresto) 24-26 mg tablet Active 1 TAB PO Twice daily 60 30 July 24, 2023 1:00am sertraline 50 mg [...] Oral two times daily for 0 10 Oct, 2022 Not-Taking/PRN losartan potassium 25 mg oral tablet [...] Name Value Interpretation Reference Range Facility [facility] echo transthoracicon [facility] echo transthoracic [facility] Main [place] [address] [place] [address] Echocardiogram Signed Patient: Mikayla Mitchell MR#: [id number] 93 : 1975 Acct:[id number] Age/Sex: 47 / F ADM Date: 07/12/23 Loc: Room: Type: [facility] Attending Dr: Stephanie Sweet MD Ordering Provider: Stephanie Sweet MD Date of Service: 07/12/2302/24/1326 [facility] echo transthoracic: History of non-ST elevation myocardial [...] 60.0 % ESV ()_phl: 108.0 ml HR (HM)_phl: 70.0 BPMES Current (HM)_phl: 30.0 % LV Length ED (HM)_phl: 92.0 mmSV (HM)_phl: 79.0 ml ED Default (HM)_phl: 60.0 % LV Length ES (HM)_phl: 80.0 mm ES Default (HM)_phl: 30.0 % Transcribed By: SCV Performed At: 07/12/23 1334 Signed By: Grace Solorio MD 07/12/23 1521 [facility] ALL LIPID PROFILE (FASTING)o n 07-06-2023 CHOL HDL RATIO 3.8 [facility] Comment on above: 3.3 - 4.4 LOW RISK 4.4 - 7.1 AVERAGE RISK 7.1 - 11.0 MODERATE RISK >11.0 HIGH RISK Cholesterol [Mass/Vol] 124 mg/dL NINF - 200 mg/dL [facility] Cholesterol in HDL [Mass/Vol] 33 mg/dL Low 40 - 60 mg/dL [facility] Comment on above: > or =60 mg/dl - LOW CARDIOVASCULAR RISK <40 mg/dl - HIGH CARDIOVASCULAR RISK Magnesium [Mass/Vol] 37.0 mg/dL [facility] Comment on above: <100 mg/dl OPTIMAL 100-129 mg/dl NEAR OR ABOVE OPTIMAL 130-159 mg/dl BORDERLINE HIGH 160-189 mg/dl HIGH >190 mg/dl VERY HIGH Magnesium [Mass/Vol] 54.2 mg/dL [facility] Triglyceride [Mass/Vol] 271 mg/dL High NINF - 150 mg/dL [facility] 07-06-2023 ALT [Catalytic activity/Vol] 37 U/L 14 - 59 U/L [facility] 07-06-2023 AST [Catalytic activity/Vol] 13 U/L Low 15 - 37 U/L [facility] No Panel Informationon 07-06 Interpretation and review of laboratory results Abnormal [facility] ECG 12 lead ECGon 04-12-2023 ECG 12 lead ECG [facility] [place] [address] Electrocardiograph Report Signed Patient: Mikayla Mitchell MR#: [id number] 93 : 1975 Acct:[id number] Age/Sex: 47 / F ADM Date: 04/10/23 Loc: Room: [address] [place] [address] Type: DIS IN Attending Dr: Florentino Kenyon [...] By: MUS Signed By Darryl Kee MD 1360 [facility] Glucose Glucometer (BldC) [M ass/Vol]Ordered By: Florentino Kenyon on 04-12-2023 Glucose [Mass/Vol] 226 mg/dL [facility] Comment on above: Random Glucose Refer ence Range is dependent on time and content of last meal. Glucose of more than 200 mg/dL in a nonstressed, ambulatory subject supports the diagnosis of Diabetes Mellitus. Glucose Poct Glucometerson 1 06-12-2022 Glucose [Mass/Vol] 226 mg/dL [facility] Comment on above: Result Comment: [place] Glucose Reference Range is dependent on time and content of last meal. Glucose of more than 200 mg/dL in a nonstressed, ambulatory subject supports the diagnosis of Diabetes Mellitus. PERFORMED BY: [place] [address] PATHOLOGIST [employer] ELPIDIO DUMONT M.D. Performed By: #### G EMILIA #### Point of Care testing , Glucose [Mass/Vol] 219 mg/dL Normal [facility] Comment on above: Result Comment: [facility] Glucose Reference Range is dependent on time and content of last meal. Glucose of more than 200 mg/dL in a nonstressed, ambulatory subject supports the diagnosis of Diabetes Mellitus. PERFORMED BY: [place] [address] PATHOLOGIST [employer] ELPIDIO DUMONT M.D. Performed By: #### H S TROP, CK #### [place] [id number] [facility] Troponin I High Sensitivityo n 04-12-2023 Troponin I High Sensitivity 3417.1 pg/mL Off scale high 0.0-15.0 [facility] Comment on above: Result Comment: Crit ical Result : Called to and read back by: CLAYTON MCCLOUD at: 04/12/2023 06:08:29 by:[id number] PERFORMED BY: [place] [address] PATHOLOGIST [employer] ELPIDIO DUMONT M.D. Performed By: #### H S TROP, CK #### [facility] [address] [place], [place] [id number] [facility] Troponin I.cardiac [Mass/vol ume] in Serum or Plasma by Detection limit <= 0.01 ng/Ordered By: Magali Cortez on 04-12-2023 Troponin I.cardiac DL <= 0.01 ng/mL [Mass/Vol] 3417.1 pg/mL 0.0-15.0 [facility] Comment on above: Critical Result : Ca lled to and read back by: CLAYTON MCCLOUD at: 04/12/2023 06:08:29 by:[id number] Activated partial thrombopla stin time (aPTT) in platelet poor plasma by coagulation aOrdered By: Stephanie Sweet on 04-11-2023 aPTT Coag (PPP) [Time] 29.3 s 25.1-36.5 [facility] Comment on above: A hematocrit value g reater than 55% may lead to inaccurate results in coagulation testing. Patients having hematocrit values >55% require a special collection tube for coagulation studies. Please contact the laboratory at [phone] for redraw instructions. Basophils Auto (Bld) [#/Vol] Ordered By: Stephanie Sweet on 04-11-2023 Basophils (Bld) [#/Vol] 0.0 10*3/uL 0.0-0.2 [facility] Basophils/100 WBC Auto (Bld) Ordered By: Stephanie Sweet on 04-11-2023 Basophils/100 WBC (Bld) 0.5 % . [facility] Blood Urea Nitrogenon 2022 Urea nitrogen [Mass/Vol] 11 mg/dL Normal 7-25 [facility] Comment on above: Performed By: #### C REAT, BUN, CBC, LYTES #### [facility] [address] Carbon dioxide, total [Moles /volume] in Serum or PlasmaOrdered By: Stephanie Sweet on 04-11-2023 CO2 [Moles/Vol] 26.7 mmol/L 21.0-31.[address] [facility] Chloride [Moles/volume] in S ambika or PlasmaOrdered By: Stephanie Sweet on 04-11-2023 Chloride [Moles/Vol] 101 mmol/L 98-107 [facility] Coagulation Profileon 2022 aPTT Coag (Bld) [Time] 29.3 s Normal 25.1-36.5 [facility] Comment on above: Result Comment: A he matocrit value greater than 55% may lead to inaccurate results in coagulation testing. Patients having hematocrit values >55% require a special collection tube for coagulation studies. Please contact the laboratory at [phone] for redraw instructions. PERFORMED BY: [facility] [address] [place] [id number] PATHOLOGIST [employer] ELPIDIO DUMONT M.D. Performed By: #### H S TROP CK #### [address] INR Coag (PPP) [Relative time] 1.0 {INR} Normal [facility] Comment on above: Result Comment: INR [...] By: #### H S TROP CK #### [address] PT Coag (PPP) [Time] 12.0 s Normal 9.0-12.9 [facility] Comment on above: Result Comment: A he matocrit value greater than 55% may lead to inaccurate results in coagulation testing. Patients having hematocrit values >55% require a special collection tube for coagulation studies. Please contact the laboratory at [phone] for redraw instructions. Performed By: #### H Sushma TROP CK #### [address] Complete Blood Count Auto Di ffon 04-11-2023 Basophils (Bld) [#/Vol] 0.0 10*3/uL Normal 0.0-0.2 [facility] Comment on above: Result Comment: PERF ORMED BY: [place] [address] PATHOLOGIST [employer] ELPIDIO DUMONT M.D. Performed By: #### C REAT, BUN, CBC, LYTES #### [address] Basophils/100 WBC (Bld) 0.5 % Normal . [facility] Comment on above: Performed By: #### C REAT, BUN, CBC, LYTES #### [place] [address] [place] Eosinophils (Bld) [#/Vol] 0.1 10*3/uL Normal 0.0-0.45 [facility] Comment on above: Performed By: #### C REAT, BUN, CBC, LYTES #### [address] Eosinophils/100 WBC (Bld) 0.9 % Normal . [facility] Comment on above: Performed By: #### C REAT, BUN, CBC, LYTES #### [address] Erythrocyte distribution width (RBC) [Ratio] 14.5 % Normal 11.9-15.3 [facility] Comment on above: Performed By: #### C REAT, BUN, CBC, LYTES #### [address] Hematocrit (Bld) [Volume fraction] 35.1 % Normal 34.0-46.4 [facility] Comment on above: Performed By: #### C REAT, BUN, CBC, LYTES #### [address] Hemoglobin (Bld) [Mass/Vol] 11.8 g/dL Normal 11.8-15.4 [facility] Comment on above: Performed By: #### C REAT, BUN, CBC, LYTES #### [address] Lymphocytes (Bld) [#/Vol] 3.0 10*3/uL Normal 1.00-4.8 [facility] Comment on above: Performed By: #### C REAT, BUN, CBC, LYTES #### [address] Lymphocytes/100 WBC (Bld) 33.4 % Normal . [facility] Comment on above: Performed By: #### C REAT, BUN, CBC, LYTES #### [address] MCH (RBC) [Entitic mass] 30.7 pg Normal 24.7-34.3 [facility] Comment on above: Performed By: #### C REAT, BUN, CBC, LYTES #### [address] MCV (RBC) [Entitic vol] 91.1 fL Normal 80-100 [facility] Comment on above: Performed By: #### C REAT, BUN, CBC, LYTES #### [address] Mean Corpuscular HGB Conc 33.7 g/dL Normal 32.0-35.0 [facility] Comment on above: Performed By: #### C REAT, BUN, CBC, LYTES #### [address] Monocytes (Bld) [#/Vol] 0.5 10*3/uL Normal 0.0-0.8 [facility] Comment on above: Performed By: #### C REAT, BUN, CBC, LYTES #### [address] Monocytes/100 WBC (Bld) 5.8 % Normal . [facility] Comment on above: Performed By: #### C REAT, BUN, CBC, LYTES #### [address] Neutrophils (Bld) [#/Vol] 5.3 10*3/uL Normal 1.8-7.7 [facility] Comment on above: Performed By: #### C REAT, BUN, CBC, LYTES #### [address] Neutrophils/100 WBC (Bld) 59.4 % Normal . [facility] Comment on above: Performed By: #### C REAT, BUN, CBC, LYTES #### [address] NRBC% 0.1 /100{WBC} Normal 0-0.5 [facility] Comment on above: Performed By: #### C REAT, BUN, CBC, LYTES #### [address] Platelet mean volume (Bld) [Entitic vol] 9.4 fL Normal 6.3-10.7 [facility] Comment on above: Performed By: #### C REAT, BUN, CBC, LYTES #### [facility] [address] Platelets (Bld) [#/Vol] 213 10*3/uL Normal 150-450 [facility] Comment on above: Performed By: #### C REAT, BUN, CBC, LYTES #### [address] RBC (Bld) [#/Vol] 3.85 10*6/uL Normal 3.60-5.00 [facility] Comment on above: Performed By: #### C REAT, BUN, CBC, LYTES #### [address] WBC (Bld) [#/Vol] 9.0 10*3/uL Normal 3.8-11.6 [facility] Comment on above: Performed By: #### C REAT, BUN, CBC, LYTES #### [address] Creatine Kinaseon 04-11-2023 CK [Catalytic activity/Vol] 186 U/L Normal 30- [facility] Comment on above: Performed By: #### H S TROP, CK #### [facility] [address] [place] [address] CK [Catalytic activity/Vol] 242 U/L High - [facility] Comment on above: Performed By: #### H S TROP, CK #### [address] Creatine kinase [Enzymatic a ctivity/volume] in Serum or PlasmaOrdered By: Florentino Kenyon on 04-11-2023 CK [Catalytic activity/Vol] 186 U/L [facility] Creatinineon 04-11-2023 Creatinine [Mass/Vol] 0.47 mg/dL Low 0.60-1.20 [facility] Comment on above: Performed By: #### H S TROP, CK #### [facility] [address] [place] [address] Creatinine Clr Calc Pharmacy 166.11 [facility] Comment on above: Result Comment: PERF ORMED BY: [place] [address] PATHOLOGIST [employer] ELPIDIO DUMONT M.D. Performed By: #### H S TROP, CK #### [place] [address] [place] GFR/1.73 sq M.predicted MDRD (S/P/Bld) [Vol rate/Area] mL/min/{1.73_m2} [facility] Comment on above: Performed By: #### H S TROP, CK #### [address] Creatinine [Mass/volume] in Serum or PlasmaOrdered By: Stephanie Sweet on 04-11-2023 Creatinine [Mass/Vol] 0.47 mg/dL 0.60-1.20 [facility] ECG 12 lead ECGon 04-11-2023 ECG 12 lead ECG [facility] Main [place] [address] [place] [address] Electrocardiograph Report Signed Patient: Mikayla Mitchell MR#: [id number] 93 : 1975 Acct:[id number] Age/Sex: 47 / F ADM Date: 04/10/23 Loc: Room: [address] [place] [address] Type: DIS IN Attending Dr: Florentino Kenyon [...] Signed By Darryl Kee MD 2049 Normal [facility] Electrolyteson 04-11-2023 Anion gap [Moles/Vol] 12.1 mmol/L Normal 6.0-15.0 [facility] Comment on above: Performed By: #### C REAT, BUN, CBC, LYTES #### [facility] [address] Chloride [Moles/Vol] 101 mmol/L Normal 98-107 [facility] Comment on above: Performed By: #### C REAT, BUN, CBC, LYTES #### [facility] [address] CO2 [Moles/Vol] 26.7 mmol/L Normal 21.0-31.[address] [facility] Comment on above: Performed By: #### C REAT, BUN, CBC, LYTES #### [facility] [address] [place] [address] [place] Potassium [Moles/Vol] 3.8 mmol/L Normal 3.5-5.1 [facility] Comment on above: Performed By: #### C REAT, BUN, CBC, LYTES #### [facility] [address] [place] [address] [place] Sodium [Moles/Vol] 136 mmol/L Normal 136-145 [facility] Comment on above: Performed By: #### C REAT, BUN, CBC, LYTES #### [facility] [address] [place] [address] [place] Eosinophils Auto (Bld) [#/Vo l]Ordered By: Stephanie Sweet on 04-11-2023 Eosinophils (Bld) [#/Vol] 0.1 10*3/uL 0.0-0.45 [facility] Eosinophils/100 WBC Auto (Bl d)Ordered By: Stephanie Sweet on 04-11-2023 Eosinophils/100 WBC (Bld) 0.9 % . [facility] Erythrocyte distribution wid th Auto (RBC) [Ratio]Ordered By: Stephanie Kee on 04-11-2023 Erythrocyte distribution width (RBC) [Ratio] 14.5 % 11.9-15.3 [facility] Glucose Poct Glucometerson 1 06-11-2022 Glucose [Mass/Vol] 200 mg/dL Normal [facility] Comment on above: Result Comment: [place] om Glucose Reference Range is dependent on time and content of last meal. Glucose of more than 200 mg/dL in a nonstressed, ambulatory subject supports the diagnosis of Diabetes Mellitus. PERFORMED BY: [address] [place] [address] PATHOLOGIST [employer] ELPIDIO DUMONT M.D. Performed By: #### G LULS #### Point of Care testing , Commemt1 Glu2: Cleaned Meter Normal [facility] Comment on above: Result Comment: PERF ORMED BY: [address] [place] [address] PATHOLOGIST [employer] ELPIDIO DUMONT M.D. Performed By: #### G LULS #### Point of Care testing , Glucose [Mass/Vol] 221 mg/dL Normal [facility] Comment on above: Result Comment: [place] Glucose Reference Range is dependent on time and content of last meal. Glucose of more than 200 mg/dL in a nonstressed, ambulatory subject supports the diagnosis of Diabetes Mellitus. Performed By: #### G LULS #### Point of Care testing , Glucose [Mass/Vol] 204 mg/dL Normal [facility] Comment on above: Result Comment: [place] om Glucose Reference Range is dependent on time and content of last meal. Glucose of more than 200 mg/dL in a nonstressed, ambulatory subject supports the diagnosis of Diabetes Mellitus. PERFORMED BY: [address] [place] [address] PATHOLOGIST [employer] ELPIDIO DUMONT M.D. Performed By: #### G LULS #### Point of Care testing , Hematocrit Auto (Bld) [Volum e fraction]Ordered By: Stephanie Sweet on 04-11-2023 Hematocrit (Bld) [Volume fraction] 35.1 % 34.0-46.4 [facility] Hemoglobin [Mass/volume] in BloodOrdered By: Stephanie Sweet on 04-11-2023 Hemoglobin (Bld) [Mass/Vol] 11.8 g/dL 11.8-15.4 [facility] INR in Platelet poor plasma by Coagulation assayOrdered By: Stephanie Sweet on 04-11-2023 INR Coag (PPP) [Relative time] 1.0 {INR} [facility] Comment on above: INR Therapeutic Rang [...] RBC Auto (Bld) [#/Vol] 9.0 10*3/uL 3.8-11.6 [facility] Lymphocytes Auto (Bld) [#/Vo l]Ordered By: Stephanie Sweet on 04-11-2023 Lymphocytes (Bld) [#/Vol] 3.0 10*3/uL 1.00-4.8 [facility] Lymphocytes/100 WBC Auto (Bl d)Ordered By: Stephanie Sweet on 04-11-2023 Lymphocytes/100 WBC (Bld) 33.4 % . [facility] MCH Auto (RBC) [Entitic mass ]Ordered By: Stephanie Sweet on 04-11-2023 MCH (RBC) [Entitic mass] 30.7 pg 24.7-34.3 [facility] MCHC Auto (RBC) [Mass/Vol]Or dered By: Stephanie Sweet on 04-11-2023 MCHC (RBC) [Mass/Vol] 33.7 g/dL 32.0-35.0 [facility] MCV Auto (RBC) [Entitic vol] Ordered By: Stephanie Sweet on 04-11-2023 MCV (RBC) [Entitic vol] 91.1 fL 80-100 [facility] Monocytes Auto (Bld) [#/Vol] Ordered By: Stephanie Sweet on 04-11-2023 Monocytes (Bld) [#/Vol] 0.5 10*3/uL 0.0-0.8 [facility] Monocytes/100 WBC Auto (Bld) Ordered By: Stephanie Sweet on 04-11-2023 Monocytes/100 WBC (Bld) 5.8 % . [facility] Neutrophils Auto (Bld) [#/Vo l]Ordered By: Stephanie Sweet on 04-11-2023 Neutrophils (Bld) [#/Vol] 5.3 10*3/uL 1.8-7.7 [facility] Neutrophils/100 WBC Auto (Bl d)Ordered By: Stephanie Sweet on 04-11-2023 Neutrophils/100 WBC (Bld) 59.4 % . [facility] No Panel InformationOrdered By: Florentino Kenyon on 04-11-2023 Bedside Glucose Comment Glu2: cleaned meter [facility] No Panel InformationOrdered By: Stephanie Sweet on 04-11-2023 Estimated GFR (CKD-EPI) > 60.0 mL/Min [facility] Pharmacy Creatinine Clearance (Chem 166.11 [facility] Nucleated erythrocytes [Pres ence] in Blood by Automated countOrdered By: Stephanie Sweet on 04-11-2023 Nucleated RBC Auto Ql (Bld) 0.1 /100{WBC} 0-0.5 [facility] Partial Thromboplastin Timeo n 04-11-2023 aPTT Coag (Bld) [Time] 29.2 s Normal 25.1-36.5 [facility] Comment on above: Result Comment: A he matocrit value greater than 55% may lead to inaccurate results in coagulation testing. Patients having hematocrit values >55% require a special collection tube for coagulation studies. Please contact the laboratory at [phone] for redraw instructions. PERFORMED BY: [facility] [address] [place] [address] PATHOLOGIST [employer] ELPIDIO DUMONT M.D. Performed By: #### H S VINAYAK, NICOLE #### [facility] [address] Platelet mean volume Auto (B ld) [Entitic vol]Ordered By: Stephanie Sweet on 04-11-2023 Platelet mean volume (Bld) [Entitic vol] 9.4 fL 6.3-10.7 [facility] Platelets Auto (Bld) [#/Vol] Ordered By: Stephanie Sweet on 04-11-2023 Platelets (Bld) [#/Vol] 213 10*3/uL 150-450 [facility] Potassium [Moles/volume] in Serum or PlasmaOrdered By: Stephanie Sweet on 04-11-2023 Potassium [Moles/Vol] 3.8 mmol/L 3.5-5.1 [facility] Prothrombin time (PT)Ordered By: Stephanie Sweet on 04-11-2023 PT Coag (PPP) [Time] 12.0 s 9.0-12.9 [facility] Comment on above: A hematocrit value g reater than 55% may lead to inaccurate results in coagulation testing. Patients having hematocrit values >55% require a special collection tube for coagulation studies. Please contact the laboratory at [phone] for redraw instructions. RBC Auto (Bld) [#/Vol]Ordere d By: Stephanie Sweet on 04-11-2023 RBC (Bld) [#/Vol] 3.85 10*6/uL 3.60-5.00 [facility] Serum or plasma anion gap de terminationOrdered By: Stephanie Sweet on 04-11-2023 Anion gap [Moles/Vol] 12.1 mmol/L 6.0-15.0 [facility] Sodium [Moles/volume] in Ser um or PlasmaOrdered By: Stephanie Sweet on 04-11-2023 Sodium [Moles/Vol] 136 mmol/L 136-145 [facility] Troponin I High Sensitivityo n 04-11-2023 Troponin I High Sensitivity 2287.4 pg/mL Off scale high 0.0-15.0 [facility] Comment on above: Result Comment: Crit ical Result : Called to and read back by: LILLY GRAY at: 04/11/2023 12:03:27 by:LISS PERFORMED BY: [place] [address] PATHOLOGIST [employer]LECTRON[employer]ER [employer] TE[employer] ELPIDIO DUMONT M.D. Performed By: #### H S TROP, CK #### [address] Troponin I High Sensitivity 2115.2 pg/mL Off scale high 0.0-15.0 [facility] Comment on above: Result Comment: Crit ical Result : Called to and read back by: CLAYTON REDMAN at: 04/11/2023 00:13:42 by:AUGUSTO PERFORMED BY: [place] [address] PATHOLOGIST [employer]LECTRON[employer] ASSEM[employer]ER [employer] TESTER ELPIDIO DUMONT M.D. Performed By: #### H S TROP, CK #### [address] Urea nitrogen [Mass/volume] in Serum or PlasmaOrdered By: Stephanie Sweet on 04-11-2023 Urea nitrogen [Mass/Vol] 11 mg/dL 7-25 [facility] WBC Auto (Bld) [#/Vol]Ordere d By: Stephanie Sweet on 04-11-2023 WBC (Bld) [#/Vol] 9.0 10*3/uL 3.8-11.6 [facility] Complete Blood Count Auto Di ffon 04-10-2023 Basophils (Bld) [#/Vol] 0.1 10*3/uL Normal 0.0-0.2 [facility] Comment on above: Result Comment: PERF ORMED BY: [place] [address] PATHOLOGIST [employer]SEM[employer] TE[employer] ELPIDIO DUMONT M.D. Performed By: #### H S TROP, CK #### [place] [id number] [place] Basophils/100 WBC (Bld) 1.4 % Normal . [facility] Comment on above: Performed By: #### H S TROP, CK #### [facility] [address] Eosinophils (Bld) [#/Vol] 0.1 10*3/uL Normal 0.0-0.45 [facility] Comment on above: Performed By: #### H S TROP, CK #### [facility] [address] Eosinophils/100 WBC (Bld) 1.2 % Normal . [facility] Comment on above: Performed By: #### H S TROP, CK #### [address] Erythrocyte distribution width (RBC) [Ratio] 14.1 % Normal 11.9-15.3 [facility] Comment on above: Performed By: #### H S TROP, CK #### [address] Hematocrit (Bld) [Volume fraction] 36.0 % Normal 34.0-46.4 [facility] Comment on above: Performed By: #### H S TROP, CK #### [address] Hemoglobin (Bld) [Mass/Vol] 12.2 g/dL Normal 11.8-15.4 [facility] Comment on above: Performed By: #### H S TROP, CK #### [place] [address] [place] Lymphocytes (Bld) [#/Vol] 3.2 10*3/uL Normal 1.00-4.8 [facility] Comment on above: Performed By: #### H S TROP, CK #### [place] [address] [place] Lymphocytes/100 WBC (Bld) 36.2 % Normal . [facility] Comment on above: Performed By: #### H S TROP, CK #### [place] [address] [place] MCH (RBC) [Entitic mass] 30.7 pg Normal 24.7-34.3 [facility] Comment on above: Performed By: #### H S TROP CK #### [address] MCV (RBC) [Entitic vol] 90.9 fL Normal 80-100 [facility] Comment on above: Performed By: #### H S TROP, CK #### [address] Mean Corpuscular HGB Conc 33.8 g/dL Normal 32.0-35.0 [facility] Comment on above: Performed By: #### H S TROP, CK #### [address] Monocytes (Bld) [#/Vol] 0.4 10*3/uL Normal 0.0-0.8 [facility] Comment on above: Performed By: #### H S TROP, CK #### [address] Monocytes/100 WBC (Bld) 4.6 % Normal . [facility] Comment on above: Performed By: #### H Sushma TROP CK #### [address] Neutrophils (Bld) [#/Vol] 5.0 10*3/uL Normal 1.8-7.7 [facility] Comment on above: Performed By: #### H S TROP, CK #### [address] Neutrophils/100 WBC (Bld) 56.6 % Normal . [facility] Comment on above: Performed By: #### H S TROP, CK #### [address] NRBC% 0.1 /100{WBC} Normal 0-0.5 [facility] Comment on above: Performed By: #### H S TROP, CK #### [address] Platelet mean volume (Bld) [Entitic vol] 9.3 fL Normal 6.3-10.7 [facility] Comment on above: Performed By: #### H S TROP, CK #### [facility] [address] Platelets (Bld) [#/Vol] 213 10*3/uL Normal 150-450 [facility] Comment on above: Performed By: #### H S TROP, CK #### [address] RBC (Bld) [#/Vol] 3.96 10*6/uL Normal 3.60-5.00 [facility] Comment on above: Performed By: #### H S TROP, CK #### [address] WBC (Bld) [#/Vol] 8.9 10*3/uL Normal 3.8-11.6 [facility] Comment on above: Performed By: #### H S TROP, CK #### [address] Creatine Kinaseon 04-10-2023 CK [Catalytic activity/Vol] 268 U/L High 30-223 [facility] Comment on above: Performed By: #### G EMILIA #### Point of Care testing , CK [Catalytic activity/Vol] 238 U/L High 30-223 [facility] Comment on above: Performed By: #### H S TROP, CK #### [address] CK [Catalytic activity/Vol] 210 U/L Normal 30-223 [facility] Comment on above: Performed By: #### H S TROP, CK #### [address] ECG 12 lead ECGon 04-10-2023 ECG 12 lead ECG [facility] Main [place] [address] [place] [address] Electrocardiograph Report Signed Patient: Mikayla Mitchell MR#: [id number] 93 : 1975 Acct:[id number] Age/Sex: 47 / F ADM Date: 04/10/23 Loc: Room: [address] [place] [address] Type: ADM IN Attending Dr: Florentino Kenyon [...] (247) on 04/11/2023 3:52:37 PM Referred By: [facility] Electronically Signed By:DARRYL KEE MD Transcribed By: [facility] Signed By Darryl Kee MD 1552 [facility] ECH echo transthoracicon ECH echo transthoracic [facility] [address] Echocardiogram Signed Patient: Mikayla Mitchell MR#: [id number] 93 : 1975 Acct:[id number] Age/Sex: 47 / F ADM Date: 04/10/23 Loc: Room: [address] [place] [address] Type: ADM IN Attending Dr: Florentino Kenyon [...] 1204 Signed By: Grace Solorio MD 04/10/23 1306 [facility] Glucose Poct Glucometerson 1 06-10-2022 Glucose [Mass/Vol] 201 mg/dL Normal [facility] Comment on above: Result Comment: [place] om Glucose Reference Range is dependent on time and content of last meal. Glucose of more than 200 mg/dL in a nonstressed, ambulatory subject supports the diagnosis of Diabetes Mellitus. PERFORMED BY: [place] [id number] PATHOLOGIST [employer]LECTRONICS ASSEMBLER AND TESTER ELPIDIO DUMONT M.D. Performed By: #### G EMILIA #### Point of Care testing , Glucose [Mass/Vol] 214 mg/dL Normal [facility] Comment on above: Result Comment: [place] om Glucose Reference Range is dependent on time and content of last meal. Glucose of more than 200 mg/dL in a nonstressed, ambulatory subject supports the diagnosis of Diabetes Mellitus. PERFORMED BY: [place] [id number] PATHOLOGIST [employer]LECTRON[employer] ASSEMBLER AND TESTER ELPIDIO DUMONT M.D. Performed By: #### H S TROP, CK #### [facility] [address] [place] [address] Glucose [Mass/Vol] 196 mg/dL Normal [facility] Comment on above: Result Comment: [place] om Glucose Reference Range is dependent on time and content of last meal. Glucose of more than 200 mg/dL in a nonstressed, ambulatory subject supports the diagnosis of Diabetes Mellitus. PERFORMED BY: [place] [id number] PATHOLOGIST [employer]LECTRON[employer] ASSEM[employer]ER AND TESTER ELPIDIO DUMONT M.D. Performed By: #### H S TROP, CK #### [facility] [address] [place], [place] [id number] [place] Partial Thromboplastin Timeo n 04-10-2023 aPTT Coag (Bld) [Time] 26.1 s Normal 25.1-36.5 [facility] Comment on above: Result Comment: A he matocrit value greater than 55% may lead to inaccurate results in coagulation testing. Patients having hematocrit values >55% require a special collection tube for coagulation studies. Please contact the laboratory at [phone] for redraw instructions. PERFORMED BY: [address] [place] [address] PATHOLOGIST ELECTRON[employer] ASSEMBLER AND TESTER ELPIDIO DUMONT M.D. Performed By: #### G LULS #### Point of Care testing , Prothrombin Time INRon 04-10 INR Coag (PPP) [Relative time] 1.0 {INR} Normal [facility] Comment on above: Result Comment: INR [...] Coag (PPP) [Time] 12.1 s Normal 9.0-12.9 [facility] Comment on above: Result Comment: A he matocrit value greater than 55% may lead to inaccurate results in coagulation testing. Patients having hematocrit values >55% require a special collection tube for coagulation studies. Please contact the laboratory at [phone] for redraw instructions. Performed By: #### G LULS #### Point of Care testing , Troponin I High Sensitivityo n 04-10-2023 Troponin I High Sensitivity 1613.1 pg/mL Off scale high 0.0-15.0 [facility] Comment on above: Result Comment: Crit ical Result : Called to and read back by: TRE NASH at: 04/10/2023 18:42:30 by:DC PERFORMED BY: [facility] [address] [place] [address] PATHOLOGIST ELECTRONICS ASSEMBLER AND TESTER ELPIDIO DUMONT M.D. Performed By: #### G LULS #### Point of Care testing , Troponin I High Sensitivity 1083.2 pg/mL Off scale high 0.0-15.0 [facility] Comment on above: Result Comment: Crit ical Result : Called to and read back by: TRE NASH at: 04/10/2023 16:30:31 by:DC PERFORMED BY: [place] [address] PATHOLOGIST ELECTRONICS ASSEMBLER AND TESTER ELPIDIO DUMONT M.D. Performed By: #### H S TROP, CK #### [address] Troponin I High Sensitivity 899.4 pg/mL Off scale high 0.0-15.0 [facility] Comment on above: Result Comment: PERF ORMED BY: [place] [address] PATHOLOGIST ELECTRON[employer] ASSEM[employer]ER AND TESTER ELPIDIO DUMONT M.D. Performed By: #### H S TROP, CK #### [address] XR chest 2V*on 04-10-2023 XR chest 2V* [facility] Main [place] [address] [place] [address] XRay Report Signed Patient: Mikayla Mitchell MR#: [id number] 93 : 1975 Acct:[id number] Age/Sex: 47 / F ADM Date: 04/10/23 Loc: Room: [address] [place] [address] Type: ADM IN Attending Dr: Florentino Kenyon [...] Ralf Kelly M.D.04/10/2023 3:17 PM Dictation Location: [place] [address] Transcribed By: [facility] 04/10/231516 Dictated By: Ralf Kelly II, MD 04/10/231514 Signed By: 04/10/231516 Normal [facility] FREE T4on 01-04-2022 Free T4 [Mass/Vol] 0.91 ng/dL Normal 0.76-1.46 [facility] Comment on above: Performed By: #### F T4 #### [facility] [address] [place] [address] Dr. Jane Alexis LAB TESTINGon 01-04-2022 RECV HEADER SEE SCANNED REPORT IN [facility] Comment on above: Performed By: #### M ISC #### [facility] [address] [place] [address] Dr. Jane Alexis REV FROM REF LAB 01/05/22 [facility] Comment on above: Performed By: #### M ISC #### [facility] [address] [place] [address] Dr. Jane Alexis SENT TO REF LAB 01/04/22 [facility] Comment on above: Performed By: #### M ISC #### [facility] [address] [place] [address] Dr. Jane Alexis TSHon 01-04-2022 TSH 2.294 uIU/mL Normal 0.358-3.740 [facility] Comment on above: Performed By: #### T SH #### [facility] [address] [place] [address] Dr. Jane Alexis Physician Referralon 021 Physician Referral [id number] Normal [facility] Vital Signs Date Time Vital Sign Value Performing Clinician Facility 09-18-2023 15:52-0400 Body height 165.1 cm MD Shilpa Lewis Work Phone: [facility] 09-18-2023 15:52-0400 Body mass index (BMI) [Ratio] 31.4 kg/m2 MD Shilpa Lewis Work Phone: [facility] 09-18-2023 15:52-0400 Body weight 85.72 kg MD Shilpa Lewis Work Phone: [facility] 09-18-2023 15:52-0400 Diastolic blood pressure 68 mm[Hg] MD Shilpa Lewis Work Phone: [facility] 09-18-2023 15:52-0400 Heart rate 76 /min MD Shilpa Lewis Work Phone: [facility] 09-18-2023 15:52-0400 Respiratory rate 18 /min MD Shilpa Lewis Work Phone: [facility] 09-18-2023 15:52-0400 SaO2% (BldA) [Mass fraction] 96 % MD Shilpa Lewis Work Phone: [facility] 09-18-2023 15:52-0400 Systolic blood pressure 122 mm[Hg] MD Shilpa Lewis Work Phone: [facility] 07-24-2023 09:16-0500 Body height 165.1 cm MD Shilpa Lewis Work Phone: [facility] 07-24-2023 09:16-0500 Body mass index (BMI) [Ratio] 31.8 kg/m2 MD Shilpa Lewis Work Phone: [facility] 07-24-2023 09:16-0500 Body weight 86.63 kg MD Shilpa Lewis Work Phone: [facility] 07-24-2023 09:16-0500 Diastolic blood pressure 82 mm[Hg] MD Shilpa Lewis Work Phone: [facility] 07-24-2023 09:16-0500 Heart rate 80 /min MD Shilpa Lewis Work Phone: [facility] 07-24-2023 09:16-0500 Respiratory rate 18 /min MD Shilpa Lewis Work Phone: [facility] 07-24-2023 09:16-0500 SaO2% (BldA) [Mass fraction] 97 % MD Shilpa Lewis Work Phone: [facility] 07-24-2023 09:16-0500 Systolic blood pressure 126 mm[Hg] MD Shilpa Lewis Work Phone: [facility] 07-11-2023 15:46-0500 Body height 165.1 cm Nelida Aichholz EAP CLINICIAN Work Phone: [facility] 07-11-2023 15:46-0500 Body mass index (BMI) [Ratio] 31.68 kg/m2 Nelida Aichholz EAP CLINICIAN Work Phone: [facility] 07-11-2023 15:46-0500 Body temperature 97.39 [degF] Nelida Aichholz EAP CLINICIAN Work Phone: [facility] 07-11-2023 15:46-0500 Body weight 86.36 kg Nelida Aichholz EAP CLINICIAN Work Phone: [facility] 07-11-2023 15:46-0500 Diastolic blood pressure 78 mm[Hg] Nelida Aichholz EAP CLINICIAN Work Phone: [facility] 07-11-2023 15:46-0500 Heart rate 96 /min Nelida Aichholz EAP CLINICIAN Work Phone: [facility] 07-11-2023 15:46-0500 Respiratory rate 18 /min Nelida Aichholz EAP CLINICIAN Work Phone: [facility] 07-11-2023 15:46-0500 SaO2% (BldA) [Mass fraction] 97 % Nelida Aichholz EAP CLINICIAN Work Phone: [facility] 07-11-2023 15:46-0500 Systolic blood pressure 118 mm[Hg] Nelida Aichholz EAP CLINICIAN Work Phone: [facility] 05-01-2023 11:40-0500 Body height 165.1 cm Stephanie Sweet Other [facility] 05-01-2023 11:40-0500 Body mass index (BMI) [Ratio] 31.95 kg/m2 Stehpanie Trammelloroge Other [employer] Other 05-01-2023 11:40-0500 Body weight 87.09 kg Stephanie Trammelloroge Other [employer] Other 05-01-2023 11:40-0500 Body weight 87.08 kg MD Shilpa Lewis Work Phone: [facility] 05-01-2023 11:40-0500 Diastolic blood pressure 82 mm[Hg] Stephanie Trammelloroge Other [facility] 05-01-2023 11:40-0500 Respiratory rate 20 /min Stephanie Trammelloroge Other [employer] Other 05-01-2023 11:40-0500 SaO2% (BldA) [Mass fraction] 96 % Stephanie Trammelloroge Other [employer] [facility] [employer] Other 05-01-2023 11:40-0500 Systolic blood pressure 136 mm[Hg] Stephanie Trammelloroge Other [facility] 04-12-2023 11:44-0500 Body temperature 98.7 [degF] MD Shilpa Lewis Work Phone: [facility] 04-12-2023 11:44-0500 Diastolic blood pressure 69 mm[Hg] MD Shilpa Lewis Work Phone: [facility] 04-12-2023 11:44-0500 Heart rate 82 /min MD Shilpa Lewis Work Phone: [facility] 04-12-2023 11:44-0500 Respiratory rate 18 /min MD Shilpa Lewis Work Phone: [facility] 04-12-2023 11:44-0500 SaO2% (BldA) [Mass fraction] 95 % MD Shilpa Lewis Work Phone: [facility] 04-12-2023 11:44-0500 Systolic blood pressure 113 mm[Hg] MD Shilpa Lewis Work Phone: [facility] 04-12-2023 06:00-0500 Body weight 88.7 kg MD Shilpa Lewis Work Phone: [facility] 04-12-2023 04:33-0500 Inhaled oxygen concentration 21 % MD Shilpa Lewis Work Phone: [facility] 04-10-2023 10:18-0500 Body height 165.1 cm MD Shilpa Lewis Work Phone: [facility] Encounters Encounter Date Encounter Type Care Provider Facility Start: 01-23-2024 End: 01-23-2024 ambulatory NELIDA AICHHOLZ Not Available Start: 11-11-2023 End: 11-11-2023 ambulatory MARYELLEN SAUCEDO Not Available Start: 09-18-2023 End: 09-18-2023 ambulatory MD Shilpa Lewis Work Phone: [facility] Work Phone: Start: 09-18-2023 End: 09-18-2023 Patient encounter procedure MD Shilpa Lewis Work Phone: [facility] Work Phone: Start: 09-10-2023 End: 09-10-2023 ambulatory NELIDA AICHHOLZ Not Available Start: 07-24-2023 End: 07-24-2023 ambulatory MD Shilpa Lewis Work Phone: [facility] Work Phone: Start: 07-24-2023 End: 07-24-2023 Patient encounter procedure MD Shilpa Lewis Work Phone: [facility] Work Phone: Start: 07-12-2023 End: 07-12-2023 ambulatory Stephanie Sweet Facility:[facility] Start: 07-12-2023 End: 07-12-2023 ambulatory MD Shilpa Lewis Work Phone: [facility] Work Phone: Start: 07-12-2023 End: 07-12-2023 Patient encounter procedure MD Shilpa Lewis Work Phone: [facility] Work Phone: Start: 07-11-2023 End: 07-11-2023 ambulatory NELIDA AYAAN Not Available Start: 07-11-2023 End: 07-11-2023 Office outpatient visit 25 minutes Nelida Nandahyez EAP CLINICIAN Work Phone: [facility] Comment on above: Type 2 diabetes gerald itus with hyperglycemia, without long-term current use of insulin (CMS/HCC) (Primary Dx); Obesity with body mass index (BMI) of 30.0 to 39.9; Tobacco user; Essential (primary) hypertension (CMS/[facility]); Acute heart failure, unspecified heart failure type (CMS/[facility]); Anxiety Start: 07-11-2023 Bamboo flowsheet Nelida Aichholz EAP CLINICIAN Work Phone: [facility] Start: 07-11-2023 Bamboo flowsheet Nelida Aichholz EAP CLINICIAN Work Phone: [facility] Start: 07-06-2023 Clinisync Result Encounter Nelida Nandahholz EAP CLINICIAN Work Phone: [facility] Unsolicited Start: 07-06-2023 Clinisync Result Encounter Nelida Aichholz EAP CLINICIAN Work Phone: [facility] Unsolicited Start: 06-11-2023 End: 06-11-2023 ambulatory Stephanie Sweet Other [employer] Other Start: 06-11-2023 Telephone encounter Stephanie LUBIN [employer] Quality Assurance Specialist Start: 06-10-2023 End: 06-10-2023 ambulatory Stephanie Sweet Other [employer] Other Start: 06-10-2023 Telephone encounter Stephanie LUBIN [facility] Start: 05-20-2023 End: 05-20-2023 ambulatory NELIDA CHHOLZ Not Available Start: 05-08-2023 End: 05-08-2023 ambulatory Stephanie Sweet Other [employer] Other Start: 05-08-2023 Telephone encounter Stephanie Sweet [facility] Start: 05-01-2023 End: 05-01-2023 ambulatory Stephanie Sweet Other [employer] Other Start: 05-01-2023 Office outpatient vi sit 25 minutes Stephanie Trammelloroge [facility] Start: 05-01-2023 End: 05-01-2023 Patient encounter procedure MD Shilpa Lewis Work Phone: [facility] Work Phone: Start: 04-10-2023 End: 04-12-2023 Evaluation and management of inpatient Alaa Alahmad Facility:[facility] Start: 04-10-2023 End: 04-12-2023 Evaluation and management of inpatient MD Shilpa Lewis Work Phone: [facility] [place] [facility] Work Phone: Start: 01-04-2022 End: 01-05-[address] SHILPA LEWIS Facility: Procedures Date Procedure Procedure Detail Performing Clinician Start: 07-06-2023 ALL LIPID PROFILE (FASTING) Nelida Aichholz EAP CLINICIAN Work Phone: Start: 07-06-2023 [facility] ALT Nelida Aichh olz EAP CLINICIAN Work Phone: Start: 07-06-2023 [facility] AST Nelida Aichh olz EAP CLINICIAN Work Phone: Start: 04-11-2023 MD Shilpa Lewis [...] Screening for malign ant neoplasm of cervix [facility] Start: 09-09-2023 End: 09-09-2023 Patient encounter procedure 09/09/2023 3:40 PM EDT Office Visit [facility] [address] [place] [phone] Nelida Ambrosio NP [address] [place] [phone] [facility] Start: 08-02-2023 Hemoglobin A1c measurement Diabetes: Hemoglobin A1C [facility] Start: 08-02-2023 Screening for malign ant neoplasm of breast Mammogram [facility] Comment on above: Postponed from 09/19 (Other Medical Reasons) Start: 07-11-2023 End: 07-11-2023 Patient encounter procedure 07/11/2023 3:40 PM EST [facility] [address] [place] [phone] Nelida Ambrosio NP [address] [place] [phone] [facility] Start: 04-12-2023 [facility] Start: 04-10-2023 Hospital admission [facility] Start: 04-10-2023 Sleep disorder assessment [facility] Start: 02-01-2023 Influenza vaccination Influenza Vacc ine (#1) [facility] Start: 11-14-1995 Screening for malign ant neoplasm of cervix Pap Smear [facility] Start: 1993 Urine screening for protein Diabetes: Urine Protein Screening [facility] Start: 1984 Glaucoma screening Diabetes: R etinopathy Screening [facility] Start: 1974 Screening for malign ant neoplasm of colon [facility] Patient Education Coronary Angio plasty (DC) Coronary Stenting (DC) Angina (DC) Chest Pain (DC) Coronary Artery Disease (DC) Coronary artery disease in women Drug Eluting Stents [facility] Work Phone: Patient referral [facility] Work Phone: Payers Date Payer Category Payer Private Health Insurance [facility] [id number] 2023 Self-pay [id number] 2019 Private Health Insurance LAURENJENNIFER Rosa Isela FITZGERALD [id number] 2019-Present [address] [place] [address] [id number] 1975 Unknown [id number] 1975 Unknown [id number] 1975 Unknown [id number] 1975 Unknown [id number] .9 1975 Unknown [id number] .1259 1975 Unknown [id number] 1960 Private Health Insurance [facility] [id number] Unknown [id number] Unknown [id number] Social History Date Type Detail Facility Start: 04-11-2023 End: 07-24-2023 Tobacco smoking status NHIS Smoker (finding) [facility] Start: 1975 Sex Assigned At Female F [facility] Start: 05-20-2023 End: 07-11-2023 Sex Assigned At [facility] Start: 05-20-2023 Tobacco smoking stat [facility] Smokes tobacco daily [facility] History [...] [facility] Start: 09-18-2023 Tobacco smoking stat us NJIS Ex-smoker (finding) [facility] Medical Equipment Procedure Code Equipment Code Equipment Origin al Text Equipment Identifier Dates CL STENT GARTH FRONTIER 3.5 X 15 FDA Start: 04-11-2023 USE 1 A DAY [id number] Start: 04-17-2023 USE 1 DAILY [id number] Start: 04-17-2023 CL STENT GARTH FRONTIER 3.5 X 15 FDA Start: 04-11-2023 CL STENT GARTH FRONTIER 3.5 X 15 FDA Start: 04-11-2023 CL STENT GARTH FRONTIER 3.5 X 15 FDA Start: 04-11-2023 Blood Sugar Diagnostic (True Metrix Glucose Test Strip) strip Start: 09-18-2023 Goals Date Patient Goal Desired Activity /State Functional Status Date Assessment Result Facility 04-12-2023 Functional status Patient at Baseline [facility] Work Phone: Mental Status Date Assessment Result Facility 04-12-2023 Cognitive function Cognitive Sta tus Patient at Baseline [facility] Work Phone: Clinical Notes 04-10-2023 to 07-24-2023 Note Date & Type Note Facility 07-24-2023 Evaluation note Authored July 24, 2023 1:06pm Ms Mitchell is a a 47 yr old fe male, [place] [facility] [place] for [place]. Cath and PCI to the LAD was successful. Unsuccessful attempt to cross the RCA lesion. HX of DM type 2, HTN, PIPPA, hyperlipidemia. ECHO 04/10/2023: EF of 25-30% with grade 1 diastolic dysfunction. Trace MR, trace TR. [facility] 04/11/2023 consistent with severe two-vessel CAD-70% proximal LAD and 100% proximal RCA. Status post PCI to proximal LAD with 3.5 x 15 mm Garth NILSA. RCA was deemed to be CLINICAL DATA RESEARCH. Assessment: 2v CAD s/p PCI to LAD (presented with NSTEMI) Ischemic cardiomyopathy/Systolic heart failure. Euvolemic Hypertension Hyperlipidemia Diabetes type 2 Active tobacco use Family history of premature CAD Morbid obesity PIPPA not compliant with CPAP Plan: - [facility] 04/11/2023 consistent with severe two-vessel CAD-70% proximal LAD and 100% proximal RCA. Status post PCI to proximal LAD with 3.5 x 15 mm [place] NILSA. RCA was deemed to be CLINICAL DATA RESEARCH. - Repeat ECHO 07/12/23 showed improved EF [...] with cardiac rehab. -Follow-up in 2 months. [facility] Work Phone: 1(251) 408-534202-08-2024 History of Present illness Narrative* Nelida Ambrosio [...] instructions are 1/2 pill daily, lot # [id number] * ZANE GRIGGS - 07/11/2023 3:40 PM EST Echo tomorrow Energy Conservation Technician on 07/24 Sleep study 07/22 Pt asking if she needs another refill on the brillanta 90mg * Nelida Ambrosio NP - 07/11/2023 3:40 PM EST Images from the original note were not included. Mikayla Mitchell is a 47 y.o. female presents [...] no compliance problems. Hypertensive end-organ damage includes CAD/SC, heart failure andleft ventricular hypertrophy. Diabetes She [...] Medical History: Diagnosis Date Acute heart failure [place] 05/09/2023 Acute hemorrhoid Anxiety 05/09/2023 Aphthous ulcer Cold sore Coronary artery disease involving [place] coronary artery of [place] heart with angina pectoris [place] 05/09/2023 COVID-19 viremia Depression [place] Diastasis recti Essential (primary) hypertension [place] 05/09/2023 Eustachian salpingitis, left Hypertriglyceridemia [place] hypertriglycerides Hypothyroidism (acquired) [place] 05/09/2023 Left ankle swelling Mixed hyperlipidemia ([facility] 05/09/2023 Obesity with body mass index (BMI) of 30.0 to 39.9 07/11/2023 PIPPA (obstructive sleep apnea) 05/08/2023 Right ovarian cyst Right-sided Pa's palsy Sinusitis, bacterial Toe pain, left Type 2 diabetes mellitus with hyperglycemia, without long-term current use of insulin [place] 05/09/2023 Yeast infection of the vagina 04/29/2023 [...] instructions are 1/2 pill daily, lot # [id number] Essential (primary) hypertension (CMS/HCC) - Primary Acute heart failure (CMS/HCC) Continue with cardiology Has echo tomorrow Anxiety Doing ok on sertraline, we will increase buspirone to 7.5mg BID Fu in 2 months Relevant Medications busPIRone (Buspar) 7.5 MG tablet Obesity with body mass index (BMI) of 30.0 to 39.9 Tobacco user documented in [facility] encounterN[facility] [id number] Evaluation note* Encounter Date Diagnosis Assessment Notes Treatment Notes Treatment Clinical Notes May, Ischemic cardiomyopathy (ICD-10 - I25.5) [employer] Other 11-29-2023 Evaluation note* Encounter Date Diagnosis Assessment Notes Treatment Notes Treatment Clinical Notes Apr, History of non-ST elevation myocardial infarction (NSTEMI) (ICD-10 - I25.2) Ms Mitchell is a a 47 yr old female, [place] [facility] [place] for [place]. Cath and PCI to the LAD was successful. Unsuccessful attempt to cross the RCA lesion. HX of DM type 2, HTN, PIPPA, hyperlipidemia. ECHO 04/10/2023: EF of 25-30% with grade 1 diastolic dysfunction. Trace MR, trace TR. [facility] 04/11/2023 consistent with severe two-vessel CAD-70% proximal LAD and 100% proximal RCA. Status post PCI to proximal LAD with 3.5 x 15 mm [place] NILSA. RCA was deemed to be CLINICAL DATA RESEARCH. Assessment: 2v CAD s/p PCI to LAD (presented with NSTEMI) Systolic heart failure. Euvolemic Hypertension Hyperlipidemia Diabetes type 2 Active tobacco use Family history of premature CAD Morbid obesity PIPPA not compliant with CPAP Plan: - [facility] 04/11/2023 consistent with severe two-vessel CAD-70% proximal LAD and 100% proximal RCA. Status post PCI to proximal LAD with 3.5 x 15 mm [place] NILSA. RCA was deemed to be CLINICAL DATA RESEARCH. -Continue DAPT-aspirin 81 mg daily plus Brilinta [...] I25.5) Apr, Post PTCA (ICD-10 - Z98.61) [employer] Other 11-10-2023 Hospital Discharge instructions Additional Instructions [...] doctor or pharmacist, without first calling the geomatics professor who implanted the stent. If you [...] weight lifting, stair steppers, etc. until the geomatics professor approves these activities. Check with the geomatics professor on your first follow-up visit. CALL YOUR PHYSICIAN at [phone]: -If bleeding should occur from the catheter insertion site- apply pressure to the site then immediately call us. -Report any fever, redness, drainage, increased swelling, or firmness at the catheter insertion site. Some bruising or slight swelling may be present at the time of discharge. -Should arm or leg become cold, numb, white, or blue, contact the geomatics professor immediately. -IF you should experience episodes [...] is recommended. Please call Central Scheduling at [phone] to schedule your appointment.] The attending geomatics professor or [facility] nurse clinician should provide you with specific instructions regarding activity, diet, medications, and further follow up for you. Follow the medication instructions provided on your discharge. If the dosages and instructions on this sheet differ from the dosage and instructions on the bottle, follow the instructions on the bottle. [facility] is not responsible for incorrect prescription information provided by the patient during their visit. Do not stop your medications without consulting your health care provider. Please take the list with you to your next doctor's appointment.[facility] Work Phone: 1(873) 787-836111-10-2023 Discharge summary Author Florentino Kenyon [facility] April 12, 2023 9:01am Note Date/Time April 12, 2023 9:01am [facility] [address] [place] [address] Discharge Summary Signed Patient: Mikayla Mitchell MR#: [id number] : 1975 Acct:[id number] Age/Sex: 47 / F Adm Date: 3 Loc: 4 Room: [address] [place] [address]: Florentino Kenyon MD Copies to: [...] doctor or pharmacist, without first calling the geomatics professor who implanted the stent. If you [...] weight lifting, stair steppers, etc. until the geomatics professor approves these activities. Check with the geomatics professor on your first follow-up visit. CALL YOUR PHYSICIAN at [phone]: -If bleeding should occur from the catheter insertion site- apply pressure to the site then immediately call us. -Report any fever, redness, drainage, increased swelling, or firmness at the catheter insertion site. Some bruising or slight swelling may be present at thetime of discharge. -Should arm or leg become cold, numb, white, or blue, contact the geomatics professor immediately. -IF you should experience episodes [...] is recommended. Please call Central Scheduling at [phone] to schedule your appointment.] The attending geomatics professor or [facility] nurse clinician should provide you with specific instructions regarding activity, diet, medications, and further follow up for you. Follow the medication instructions provided on your discharge. If the dosages and instructions on this sheet differ from the dosage and instructions on the bottle, follow the instructions on the bottle. [facility] is not responsible for incorrect prescription [...] signed by Florentino Kenyon MD> 04/12/23 0901 [facility] Work Phone: 1(909) 414-882311-09-2023 Consult note Author W [facility] April 11, 2023 6:12pm Note Date/Time April 11, 2023 6 :12pm [facility] [address] [place] [address] Cardiology Consult Note Signed Patient: Mikayla Mitchell MR#: [id number] : 1975 Acct:[id number] Age/Sex: 47 / F Adm Date: 3 Loc: 4P Room: [address] [place] [address] Type: ADM IN Attending Dr: Florentino Kenyon MD Copies to: MD Shilpa Skinner MD W Scott Sheldon, DO~ Cardiology HPI History of Present Illness Consult Date: 04/11/23 Reason for Consult: Non-ST elevation SC, two-vessel ASHD, ischemic cardiomyopathy HPI: Ms. Mitchell [...] alsohad premature CAD. Patient initially presented to [facility] where troponin was positive: 248-256. BNP elevated at 1327. EKG showed sinus tachycardia. Echo today shows EF of 25-30% with grade 1 diastolic dysfunction. Trace MR, trace TR. Troponin trend on arrival [phone] Catheterization was reviewed with primary geomatics professor, there is appears to be athrombotic occlusion of the proximal dominant RCA, and moderate 70% disease of the proximal LAD. We will proceed with PCI of the LAD, and attempted crossing of what appears to be a thrombotic occlusion of the RCA. [facility] Medical History (Updated 04/10/23 @ 11:06 by [...] Lymph # (Auto) 3.2 3.0 (1.00-4.8) x10E3/uL Avery # (Auto) 0.4 0.5 (0.0-0.8) x10E3/uL Eos [...] myocardial infarction Documented By: Magali Cortez DO 04/11/231454 Signed By: <Electronically signed by Magali Cortez DO> 04/11/231811 [facility] Work Phone: 1(255) 171-145411-09-2023 Progress note Author Stephanie Sweet [facility] April 11, 2023 1:12pm Note Date/Time April 11, 2023 1 :09pm [facility] [address] [place] [address] Cardiology Progress Note Signed Patient: Mikayla Mitchell MR#: [id number] : 1975 Acct:[id number] Age/Sex: 47 / F Adm Date: 3 Loc: 4 Room: [address] [place] [address] Type: ADM IN Attending Dr: Florentino Kenyon [...] alsohad premature CAD. Patient initially presented to [facility] where troponin was positive: 248-256. BNP elevated at 1327. EKG showed sinus tachycardia. Echo today shows EF of 25-30% with grade 1 diastolic dysfunction. Trace MR, trace TR. Interim history 04/11/2023: Troponin continues to uptrend 899-->2200. Reports minimal chest pain today. Heparin drip restarted last night. [facility] today Exam Physical Exam Vital Signs: Temp [...] MPV Neut % (Auto) Lymph % (Auto) Avery % (Auto) Eos % (Auto) Baso % (Auto) Nucleat RBC Rel Count Neut # (Auto) Lymph # (Auto) Avery # (Auto) Eos # (Auto) Baso # [...] % (Auto) 56.6 Lymph % (Auto) 36.2 Avery % (Auto) 4.6 Eos % (Auto) 1.2 Baso % (Auto) 1.4 Nucleat RBC Rel Count 0.1 Neut # (Auto) 5.0 Lymph # (Auto) 3.2 Avery # (Auto) 0.4 Eos # (Auto) 0.1 [...] MPV Neut % (Auto) Lymph % (Auto) [place] % (Auto) Eos % (Auto) Baso % (Auto) Nucleat RBC Rel Count Neut # (Auto) Lymph # (Auto) Avery # (Auto) Eos # (Auto) Baso # [...] % (Auto) 59.4 Lymph % (Auto) 33.4 Avery % (Auto) 5.8 Eos % (Auto) 0.9 Baso % (Auto) 0.5 Nucleat RBC Rel Count 0.1 Neut # (Auto) 5.3 Lymph # (Auto) 3.0 Avery # (Auto) 0.5 Eos # (Auto) 0.1 [...] MPV Neut % (Auto) Lymph % (Auto) Avery % (Auto) Eos % (Auto) Baso % (Auto) Nucleat RBC Rel Count Neut # (Auto) Lymph # (Auto) Avery # (Auto) Eos # (Auto) Baso # [...] alsohad premature CAD. Patient initially presented to [facility] where troponin was positive: 248-256. BNP elevated at 1327. EKG showed sinus tachycardia. Echo today shows EF of 25-30% with grade 1 diastolic dysfunction. Trace MR, trace TR. Troponin trend on arrival [phone] Assessment: NSTEMI Systolic heart failure. Euvolemic Hypertension [...] <Electronically signed by Stephanie Sweet MD> 04/11/23 1316 [facility] Work Phone: 1(948) 267-684511-09-2023 Procedure [facility]11-09-2023 Procedure [facility]11-09-2023 Progress note Author Florentino Kenyon [facility] April 11, 2023 9:50am Note Date/Time April 11, 2023 9 :48am [facility] [address] [place] [address] Hospitalist Progress Note Signed Patient: Mikayla Mitchell MR#: [id number] : 1975 Acct:[id number] Age/Sex: 47 / F Adm Date: 3 Loc: Room: [address] [place] [address] Type: ADM IN Attending Dr: Florentino Kenyon [...] signed by Florentino Kenyon MD> 04/11/23 0950 [facility] Work Phone: 1(728) 867-469211-08-2023 Consult note Author Stephanie Sweet [facility] April 10, 2023 8:00pm Note Date/Time April 10, 2023 7 :53pm [facility] [address] [place] [address] Cardiology Consult Note Signed Patient: Mikayla Mitchell MR#: [id number] : 1975 Acct:[id number] Age/Sex: 47 / F Adm Date: 3 Loc: Room: [address] [place] [address] Type: ADM IN Attending Dr: Florentino Kenyon [...] alsohad premature CAD. Patient initially presented to [facility] where troponin was positive: 248-256. BNP elevated at 1327. EKG showed sinus tachycardia. Echo today shows EF of 25-30% with grade 1 diastolic dysfunction. Trace MR, trace TR. Review of Systems Review of Systems All other systems reviewed & are negative unless noted below or in HPI [facility] Medical History (Updated 04/10/23 @ 11:06 by [...] alsohad premature CAD. Patient initially presented to [facility] where troponin was positive: 248-256. BNP elevated at 1327. EKG showed sinus tachycardia. Echo today shows EF of 25-30% with grade 1 diastolic dysfunction. Trace MR, trace TR. Troponin trend on arrival [phone] Assessment: NSTEMI Systolic heart failure. Euvolemic Hypertension [...] follow. Documented By: Stephanie Sweet MD 04/10/23 0815 Signed By: <Electronically signed by Stephanie Sweet MD> 04/10/231999 [facility] Work Phone: 1([phone]) 272-981811-08-2023 Evaluation note* Author Stephanie Sweet [facility] Authored July 24, 2023 10:10am Ms Mitchell is a a 47 yr old fe male, [place] [facility] [place] for [place]. Cath and PCI to the LAD was successful. Unsuccessful attempt to cross the RCA lesion. HX of DM type 2, HTN, PIPPA, hyperlipidemia. ECHO 04/10/2023: EF of 25-30% with grade 1 diastolic dysfunction. Trace MR, trace TR. [facility] 04/11/2023 consistent with severe two-vessel CAD-70% proximal LAD and 100% proximal RCA. Status post PCI to proximal LAD with 3.5 x 15 mm [place] NILSA. RCA was deemed to be CLINICAL DATA RESEARCH. Assessment: 2v CAD s/p PCI to LAD (presented with NSTEMI) Ischemic cardiomyopathy/Systolic heart failure. Euvolemic Hypertension Hyperlipidemia Diabetes type 2 Active tobacco use Family history of premature CAD Morbid obesity PIPPA not compliant with CPAP Plan: - [facility] 04/11/2023 consistent with severe two-vessel CAD-70% proximal LAD and 100% proximal RCA. Status post PCI to proximal LAD with 3.5 x 15 mm [place] NILSA. RCA was deemed to be CLINICAL DATA RESEARCH. - Repeat ECHO 07/12/23 showed improved EF [...] with cardiac rehab. -Follow-up in 2 months. [facility] Work Phone: 1(859) 346-709011-08-2023 History and physical note Author Florentino Kenyon [facility] April 10, 2023 11:10am Note Date/Time April 10, 2023 1 1:10am [facility] [address] [place] [address] Hospitalist H&P Signed Patient: Mikayla Mitchell MR#: [id number] : 1975 Acct:[id number] Age/Sex: 47 / F Adm Date: 3 Loc: 4 Room: [address] [place] [address] Type: ADM IN Attending Dr: Florentino Kenyon [...] negative unless noted below or in HPI [facility] Medical History (Updated 04/10/23 @ 11:06 by [...] signed by Florentino Kenyon MD> 04/10/23 1110 [facility] Work Phone: Evaluation note* Diagnosis Onset Date Resolution Status Diabetes type 2, controlled acute Hyperlipidemia acute Hypertension acute Nicotine abuse acute Non-STEMI (non-ST elevated myocardial infarction) acute PIPPA (obstructive sleep apnea) acute [facility] Work Phone: Evaluation noteNo InformationNortreal5D Other Evaluation noteNo assessment information available [facility] Work Phone: Evaluation note* Diagnosis Type 2 diabetes mellitus with hyperglycemia, without long-term current use of insulin ([facility])- Primary Obesity with body mass index (BMI) of 30.0 to 39.9 Tobacco user Tobacco use disorder Essential (primary) hypertension (CMS/[facility]) Unspecified essential hypertension Acute heart failure, unspecified heart failure type ([facility]) Anxiety Anxiety state, unspecified documented in [...] History cath/PCI 04/2023 Hospitalization History NSTEMI 04/2023 [employer] Other Progress note Author Stephanie Sweet [facility] April 12, 2023 2:38pm Note Date/Time April 12, 2023 2:30pm [facility] [address] [place] [address] Cardiology Progress Note Signed Patient: Mikayla Mitchell MR#: [id number] : 1975 Acct:[id number] Age/Sex: 47 / F Adm Date: 3 Loc: Room: [address] [place] [address] Type: ADM IN Attending Dr: Florentino Kenyon [...] alsohad premature CAD. Patient initially presented to [facility] where troponin was positive: 248-256. BNP elevated [...] alsohad premature CAD. Patient initially presented to [facility] where troponin was positive: 248-256. BNP elevated at 1327. EKG showed sinus tachycardia. Echo today shows EF of 25-30% with grade 1 diastolic dysfunction. Trace MR, trace TR. Troponin trend on arrival [phone] Assessment: NSTEMI Systolic heart failure. Euvolemic Hypertension Hyperlipidemia Diabetes type 2 Active tobacco use Family history of premature CAD Morbid obesity PIPPA not compliant with CPAP Recommendations: - [facility] 04/11/2023 consistent with severe two-vessel CAD-70% proximal LAD and 100% proximal RCA. Status post PCI to proximal LAD with 3.5 x 15 mm [place] NILSA. RCA was deemed to be CLINICAL DATA RESEARCH. Appreciate Dr Cortez's assistance in this case. [...] she change her mind. -2-week follow-up with [facility] cardiology. Documented By: Stephanie Sweet MD 04/12/23 1129 Signed By: <Electronically signed by Stephanie Sweet MD> 04/12/23 1438 [facility] Work Phone: Reason for visit NarrativeCARDIAC REHAB REFERRAL [facility] [employer] Other Summary Purpose Family History No Family [...] infarction) PIPPA (obstructive sleep apnea) Chief Complaint [facility]: 2wks i25.2 I25.5 Chief Complaint [facility]: 2wks i25.2 I25.5 3 month follow up Chief Complaint i25.2 I25.5 3 month follow up Two month f/u Reason for Referral Reason Cardiac rehab Diagnosis 1 Ischemic cardiomyopa thy (I25.5) Diagnosis 2 Post PTCA (Z98.61) Diagnosis 3 History of non-ST el evation myocardial infarction (NSTEMI) (I25.2) Referral Organization [facility] Cardiology Referring Provider First Name Stephanie Referring Provider Last Name Kee Referring Provider Specialty Cardiovascu lar Disease Referred Organization [facility] [id number] Referred Provider Specialty Cardiology Referral Priority Routine General Notes Cecilia Acuña 02:15:12 PM >received today, attachments made, waiting for notes to be locked Clinical Notes central scheduling f: [phone] Additional Source Comments INFORMATION SOURCE (unrecogn ized section and content) DATE CREATED AUTHOR 08/19/2020 [facility] DATE CREATED AUTHOR AUTHOR'S ORGANIZ ATION 01/08/2022 [facility] DATE CREATED AUTHOR AUTHOR'S ORGANIZ ATION 07/13/2023 [facility] DATE CREATED AUTHOR AUTHOR'S ORGANIZ ATION 01/25/2024 [facility] dical Specialists [facility] Care Teams (unrecognized sec tion and content) Team Status: Active Member Role Status Dates Shilpa Lewis MD Primary Care Provider Active Team Status: Inactive Member Role Status Dates Shilpa Lewis MD Primary Care Provider Active Florentino Kenyon MD Admit Provider, Attending Provider A ctive E Learning Manager Relationship Specialty Start Date End Date Thom Weinberg MD [address] [place] [address] PCP - General Family Medicine 05/20/23 Nelida Ambrosio NP [address] [place] [address] Nurse Practitioner Family Medicine 04/19/23 [...] July 12, 2023 End: July 12, 2023 E Learning Manager Relationship Specialty Start Date End Date Thom Weinberg MD [address] [place] [address] PCP - General [facility] 05/20/23 Nelida Ambrosio NP [address] [place] [id number] Nurse Practitioner [facility] 04/19/23 E Learning Manager Relationship Specialty Start Date End Date Thom Weinberg MD [address] [place] [address] PCP - General [facility] [facility] Nelida Ambrosio NP [address] [place] [address] Nurse Practitioner [facility] 04/19/23 Team Status: Inactive Member [...] FOR VISIT (unrecogniz ed section and content) [facility] [place] [facility] [place] 2WKSClinical Acute Ill nessClinical [...] BE BASED ON THE PRIMARY CLINICAL RECORDS. [facility] provides no warranty or guarantee of the accuracy or completeness of information in this document.
[2024-01-27 08:41] LABS: Bilirubin Urine NEGATIVE (NEGATIVE); Blood Urine NEGATIVE (NEGATIVE); Clarity Urine CLEAR (CLEAR); Color Urine YELLOW (YELLOW); Glucose Urine UA >=1000 mg/dL (NEGATIVE); Ketones Urine NEGATIVE (NEGATIVE); Leukocyte Esterase Urine NEGATIVE (NEGATIVE); Nitrite Urine NEGATIVE (NEGATIVE); Protein Urine NEGATIVE (NEG/TRACE); Urobilinogen Urine 0.2 EU/dL (0.2-1.0); pH Urine 5.5 (5.0-9.0)
[2024-01-27 08:50] LABS: Creatinine Urine Random 56.64 mg/dL (20.00-300.00); Microalbumin Urine Random <1.3 mg/dL (<=30.0)
[2024-01-27 08:54] LABS: Urine Microscopic Indicated NO
[2024-01-27 08:56] LABS: Estimated Average Glucose 174 mg/dL; Glycohemoglobin A1C 7.7 % (4.5-6.2)
[2024-01-27 09:01] LABS: BUN Creatinine Ratio 17.4; Calcium 8.7 mg/dL (8.5-10.1); Carbon Dioxide 26.4 mmol/L (21.0-32.0); Estimated GFR (African America >60 (>=60); Estimated GFR (Non-African Ame >60 (>=60); Glucose 188 mg/dL (74-106)
[2024-01-27 09:29] LABS: Potassium 3.6 mmol/L (3.5-5.1)
[2024-01-27 09:41] LABS: Anion Gap 14.2
[2024-01-28 08:54] LABS: Chloride 103 mmol/L (98-107); Sodium 140 mmol/L (136-145)
== END 2024-01-27 08:02 | disposition home or self-care (01) ==
LOC: LAB 08:03
PROVIDERS: PCP Nurse Practitioner; Visit Provider Nurse Practitioner
DX: E11.65 Type 2 diabetes mellitus with hyperglycemia (principal)
CPT/HCPCS: 36415; 80048; 81003; 82043; 82570; 83036

== ENCOUNTER 2024-05-01 09:44 | Outpatient (OUT) | payer OTHER, SELFPAY ==
--- OUTSIDE RECORDS SUMMARY | 2024-05-01 09:47 | XMS_ITS | CCD ---
Author Organization [facility] Care Team Providers Care Deli/Bakery Associate Name Role Phone DR SHILPA LEWIS Admitting Unavailable DR SHILPA LEWIS Attending Unavailable DR SHILPA LEWIS Primary Care Unavailable DR SHILPA LEWIS Consulting Unavailable MD Shilpa Lewis Primary Care Provider MD Florentino Kenyon Admit Provider MD Florentino Kenyon Attending Provider Stephanie Sweet Unavailable Daily CISCO ADMINISTRATOR, Nelida Unavailable Thom Weinberg MD Primary Care Provider MD Shilpa Lewis Primary Care Provider MD Stephanie Sweet Attending Provider MD Shilpa Lewis Primary Care Provider MD Stephanie Sweet Attending Provider Daily CISCO ADMINISTRATOR, Nelida Unavailable Thom Weinberg MD Primary Care Provider [phone] Airam Johnson DO Unavailable Stephanie Sweet Attending Unavailable Shilpa Lewis Primary Care Unavailable Stephanie Sweet Admitting Unavailable Stephanie Sweet Attending Unavailable Nelida Ambrosio Primary Care Unavailable Stephanie Sweet Admitting Unavailable NELIDA AMBROSIO Attending Unavailable NELIDA MABROSIO Attending Unavailable NELIDA AMBROSIO Attending Unavailable MARYELLEN SAUCEDO Attending Unavailable NELIDA AMBROSIO Attending Unavailable NELIDA AMBROSIO Attending Unavailable Medications Current Medications Medication Drug Class(es) Dates Sig (Normalized) Sig (Original) aspirin 81 mg delayed release oral tablet (19 sources) Platelet Aggregation Inhibitor, Nonsteroidal Anti-inflammatory Drug Start: 04-12-2023 take 1 tablet by mouth in the morning [facility] Aspirin Low Dose 81 MG EC tablet Take 81 mg by mouth in the morning. 04/12/2023 Active atorvastatin 80 mg oral tablet (20 sources) HMG-CoA Reductase Inhibitor Start: 04-12-2023 End: 06-06-2024 take 1 tablet by mouth at bedtime atorvastatin (Lipitor) 80 MG tablet Indications: Coronary artery disease involving [place] coronary artery of [place] heart with angina pectoris (CMS/HCC) , Mixed hyperlipidemia (CMS/HCC) Take 1 tablet (80 mg) by mouth at bedtime 90 tablet 1 03/08/2024 06/06/2024 Active Blood Glucose Monitoring Suppl (True Metrix Meter) w/Device kit (10 sources) Start: 04-19-2023 Blood Glucose Monitoring Suppl (True Metrix Meter) w/Device kit USE 1 DAILY 04/19/2023 Active Start: 04-19-2023 Blood Glucose Monitoring Suppl (True Metrix Meter) w/Device kit USE 1 DAILY 0 04/19/2023 Active busPIRone hydrochloride 7.5 mg oral tablet (20 sources) Start: 11-05-2023 take 1 tablet by mouth in the morning busPIRone (Buspar) 7.5 MG tablet Indications: Anxiety Take 1 tablet (7.5 mg) by mouth in the morning and 1 tablet (7.5 mg) before bedtime. 180 tablet 1 11/05/2023 Active Start: 07-24-2023 take 7.5 mg by mouth [...] ( ) carvedilol 6.25 mg oral tablet (20 sources) alpha-Adrenergic Raina, beta-Adrenergic Raina Start: 04-12-2023 End: 06-06-2024 take 1 tablet by mouth in the morning carvedilol (Coreg) 6.25 MG tablet Indications: Acute heart failure, unspecified heart failure type (CMS/HCC) , Essential (primary) hypertension (CMS/HCC) , Coronary artery disease involving [place] coronary artery of [place] heart with angina pectoris (CMS/HCC) Take 1 tablet (6.25 mg) by mouth in the morning and 1 tablet (6.25 mg) in the evening. Take with meals. 180 tablet 1 03/08/2024 06/06/2024 Active dapagliflozin 10 mg oral tablet (15 sources) Sodium-Glucose Cotransporter 2 Inhibitor Start: 09-18-2023 take 1 tablet by mouth once daily dapagliflozin (Farxiga) 10 MG Indications: Type 2 diabetes mellitus with hyperglycemia, without long-term current use of insulin (CMS/[facility]) Take 1 tablet (10 mg) by mouth Daily 90 tablet 1 10/29/2023 Active Start: 07-24-2023 End: 12-25-2023 take 1 tablet by mouth once daily in the morning Dapagliflozin Propanediol (Farxiga) 5 mg tablet Discontinued 10 MG PO Every morning September 18, 2023 3:45pm December 25, 2023 3:00pm take 5 mg by mouth i n the morning dapagliflozin (Farxiga) 5 MG Indications: Heart Failure , Type 2 Diabetes Mellitus Take 5 mg by mouth in the morning. 0 Active DULoxetine 30 mg delayed release oral capsule (2 sources) Serotonin and Norepinephrine Reuptake Inhibitor Start: 04-27-2024 End: 07-26-2024 take 1 capsule by mouth once daily DULoxetine (Cymbalta) [address] capsule Indications: Anxiety Take 1 capsule (30 mg) by mouth Daily Do not crush or chew. 90 capsule 04/27/2024 07/26/2024 Active hydrocortisone acetate 25 mg rectal suppository (4 sources) Corticosteroid Start: 03-26-2024 End: 04-01-2024 hydrocortisone (Anusol-HC) 25 MG suppository Indications: Hemorrhoids Insert 1 suppository (25 mg) into the rectum 2 (two) times a day as needed for hemorrhoids for up to 6 days 12 suppository 03/26/2024 04/01/2024 Active Start: 09-18-2023 Hydrocortisone Acetate Active 25 MG LA Daily September 18, 2023 12:00am isopropyl alcohol 0.7 ml/ml medicated pad (10 sources) Start: 04-17-2023 Alcohol Swabs ([facility] Alcohol Prep Pads) 70 % pads USE 1 PER DAY 04/17/2023 Active levothyroxine sodium 0.025 mg oral tablet (16 sources) l-Thyrox ine Start: 04-20-2024 End: 07-19-2024 take 1 tablet by mouth before mealtime levothyroxine (Synthroid, Levoxyl) 25 MCG tablet Indications: Hypothyroidism, unspecified type (CMS/HCC) Take 1 tablet (25 mcg) by mouth in the morning. Take before meals. 90 tablet 1 04/20/2024 07/19/2024 Active Start: 10-29-2023 take 1 tablet by juan m th before mealtime levothyroxine (Synthroid, Levoxyl) 25 MCG tablet Indications: Hypothyroidism, unspecified type (CMS/HCC) Take 1 tablet (25 mcg) by mouth in the morning. Take before meals. 90 tablet 1 10/29/2023 Active Start: 05-29-2023 End: 10-06-2023 take 1 tablet by mouth before mealtime levothyroxine (Synthroid, Levoxyl) 25 MCG tablet Indications: Hypothyroidism, unspecified type (CMS/HCC) Take 1 tablet (25 mcg) by mouth in the morning. Take before meals. 90 tablet 1 10/29/2023 Active Start: 05-09-2022 take 1 tablet by juan m th once daily as needed Levothyroxine 75mcg levothyroxine 75mcg, 1 (one) Tablet daily # 90, 05/09/2022, No Refill. Active oral daily for 0 *Reorder from [employer] for eRx and Interaction Alerts* May, Not-Taking/PRN Start: 05-09-2022 take 1 tablet by juan m th once daily Levothyroxine 75mcg levothyroxine 75mcg, 1 (one) Tablet daily # 90, 05/09/2022, No Refill. Active oral daily for 0 *Reorder from [employer] for eRx and Interaction Alerts* May, Not-Taking metFORMIN hydrochloride 500 mg oral tablet (20 sources) Biguanide Start: 12-10-2023 End: 03-09-2024 take 2 tablets by mouth in the morning metFORMIN (Glucophage) 500 MG tablet Indications: Type 2 diabetes mellitus with hyperglycemia, without long-term current use of insulin (CMS/HCC) Take 2 tablets (1,000 mg) by mouth in the morning and 2 tablets (1,000 mg) in the evening. Take with meals. 360 tablet 1 12/10/2023 Active Start: 07-24-2023 take 1000 mg by mout h twice daily Metformin Active 1000 MG PO Twice daily July 24, 2023 10:06am Start: 05-20-2023 End: 10-06-2023 take 2 tablets by mouth in the morning metFORMIN (Glucophage) 500 MG tablet Indications: Type 2 diabetes mellitus with hyperglycemia, without long-term current use of insulin (CMS/HCC) Take 2 tablets (1,000 mg) by mouth [...] two times daily for 0 *Reorder from [employer] for eRx and Interaction Alerts* Mar, Active nitroglycerin 0.4 mg sublingual tablet (20 sources) Nitrate Vasodilator Start: 04-12-2023 End: 07-24-2023 nitroglycerin (Nitrostat) 0.[address] 0.4 mg under the tongue every 5 (five) minutes if needed 05/09/2023 Active Nitroglycerin 0. 4 MG as directed Sublingual Active ondansetron 4 mg disintegrating oral tablet (1 source) Serotonin-3 Receptor Antagonist Start: 03-26-2024 End: 04-02-2024 take 1 tablet by mouth every eight hours for nausea ondansetron ODT (Zofran-ODT) 4 MG disintegrating tablet Indications: Nausea and vomiting, unspecified vomiting type Take 1 tablet (4 mg) by mouth every 8 (eight) hours if needed for vomiting or nausea for up to 7 days 21 tablet 03/26/2024 04/02/2024 Active sacubitril 49 mg / valsartan 51 mg oral tablet (13 sources) Angiotensin 2 Receptor Raina Start: 03-09-2024 take 1 tablet by mouth twice daily Sacubitril-Valsartan (Entresto) 49-51 mg tablet Active 0 .ROUTE .COMPLEX 180 March 09, 2024 12:33pm TAKE 1 TABLET BY MOUTH TWICE A DAY Start: 12-25-2023 End: 04-27-2024 take 1 tablet by mouth in the morning Entresto 49-51 MG tablet Take 1 tablet by mouth in the morning and 1 tablet before bedtime. 12/25/2023 04/27/2024 Discontinued (Therapy completed) Start: 12-25-2023 End: 03-09-2024 take 1 tablet by mouth twice daily Sacubitril-Valsartan (Entresto) 49-51 mg tablet Discontinued 1 TAB PO Twice daily 180 90 December 25, 2023 12:00am March 09, 2024 12:33pm Start: 07-24-2023 End: 12-25-2023 take 1 tablet by mouth twice daily Sacubitril-Valsartan (Entresto) 24-26 mg tablet Discontinued 1 TAB PO Twice daily 60 30 October 29, 2023 12:08pm December 25, 2023 3:46pm take 1 tablet by juan m th in the morning sacubitril-valsartan (Entresto) 97-103 MG tablet Take 1 tablet by mouth in the morning and 1 tablet before bedtime. Active Semaglutide (1 source) Start: 03-18-2024 Semaglutide (O zempic) 0.25 mg or 0.5 mg (2 mg/3 mL) pen injector Active 0.5 MG SUBCUT every week March 18, 2024 12:00am semaglutide (Ozempic, 1 MG/DOSE,) 4 MG/3ML solution pen-injector (2 sources) Start: 04-27-2024 End: 07-20-2024 inject 1 mg by subcutaneous injection every week semaglutide (Ozempic, 1 MG/DOSE,) 4 MG/3ML solution pen-injector Indications: Type 2 diabetes mellitus with hyperglycemia, without long-term current use of insulin (CMS/HCC) Inject 1 mg under the skin 1 (one) time per week 3 each 1 04/27/2024 07/20/2024 Active Semaglutide,0.25 or 0.5MG/DOS, (Ozempic, 0.25 or 0.5 MG/DOSE,) 2 MG/3ML solution pen-injector (7 sources) Start: 04-12-2024 End: 04-27-2024 Semaglutide,0.25 or 0.5MG/DOS, (Ozempic, 0.25 or 0.5 MG/DOSE,) 2 MG/3ML solution pen-injector Indications: Type 2 diabetes mellitus with hyperglycemia, without long-term current use of insulin (CMS/HCC) Inject 0.5 mg as directed every 7 (seven) days for 28 days 3 mL 2 04/12/2024 04/27/2024 Discontinued (Therapy completed) Start: 04-12-2024 End: 05-10-2024 Semaglutide,0.25 or 0.5MG/DO S, (Ozempic, 0.25 or 0.5 MG/DOSE,) 2 MG/3ML solution pen-injector Indications: Type 2 diabetes mellitus with hyperglycemia, without long-term current use of insulin (CMS/HCC) Inject 0.5 mg as directed every 7 (seven) days for 28 days 3 mL 2 04/12/2024 05/10/2024 Active Start: 01-23-2024 End: 04-12-2024 Semaglutide,0.25 or 0.5MG/DO S, (Ozempic, 0.25 or 0.5 MG/DOSE,) 2 MG/3ML solution pen-injector Indications: Type 2 diabetes mellitus with hyperglycemia, without long-term current use of insulin (CMS/HCC) Inject 0.25 mg under the skin every 7 (seven) days for 28 days 0.25mg once a week for 4 weeks, then increase to 0.5mg once a week 3 mL 2 01/23/2024 04/12/2024 Discontinued Start: 01-23-2024 Semaglutide,0. 25 or 0.5MG/DOS, (Ozempic, 0.25 or 0.5 MG/DOSE,) 2 MG/3ML solution pen-injector Indications: Type 2 diabetes mellitus with hyperglycemia, without long-term current use of insulin ([facility]) Inject 0.25 mg under the skin every 7 (seven) days for 28 days 0.25mg once a week for 4 weeks, then increase to 0.5mg once a week 3 mL 2 01/23/2024 Active sertraline 50 mg oral tablet (12 sources) Serotonin Reuptake Inhibitor Start: 04-20-2024 End: 07-19-2024 take 1 tablet by mouth once daily sertraline (Zoloft) 50 MG tablet Indications: Anxiety Take 1 tablet (50 mg) by mouth Daily 90 tablet 1 04/20/2024 04/27/2024 Discontinued (Ineffective) Start: 10-29-2023 take 1 tablet by ujan m once daily sertraline (Zoloft) 50 MG tablet Indications: Anxiety Take 1 tablet (50 mg) by mouth Daily 90 tablet 1 10/29/2023 Active Start: 06-04-2023 End: 10-06-2023 take 1 tablet by mouth once daily sertraline (Zoloft) 50 MG tablet Indications: Anxiety Take 1 tablet (50 mg) by mouth Daily 90 tablet 1 10/29/2023 Active spironolactone 25 mg oral tablet (20 sources) Aldosterone Antagonist Start: 04-12-2023 End: 03-09-2024 take 1 tablet by mouth in the morning spironolactone (Aldactone) 25 MG tablet Take 25 mg by mouth in the morning. 05/09/2023 Active ticagrelor 90 mg oral tablet (20 sources) Start: 04-12-2023 End: 02-14-2024 take 1 tablet by mouth in the morning Brilinta 90 MG tablet Take 90 mg by mouth in the morning and 90 mg before bedtime. 09/04/2023 Active tiZANidine 4 mg oral tablet (12 sources) Central alpha-2 Adrenergic Agonist Start: 12-19-2023 End: 03-18-2024 tiZANidine (Zanaflex) 4 MG tablet Indications: Lumbar back pain Take 1 tablet (4 mg) by mouth as needed at bedtime for muscle spasms 90 tablet 1 12/19/2023 Active Start: 09-18-2023 Tizanidine Act kristen 4 MG PO every 6 to 8 [...] two times daily for 0 Mar, Not-Taking/PRN 24 hr isosorbide mononitrate 30 mg extended release oral tablet (19 sources) Nitrate Vasodilator Start: 10-29-2023 End: 03-09-2024 take 1 tablet by mouth once daily in the morning Isosorbide Mononitrate Discontinued 0 .ROUTE .COMPLEX 90 October 29, 2023 12:13pm March 09, 2024 12:41pm TAKE 1 TABLET BY MOUTH EVERY DAY IN THE MORNING FOR 90 DAYS Start: 05-01-2023 End: 10-29-2023 take 1 tablet by mouth in the morning, then take 1 tablet by mouth every twenty-four hours isosorbide mononitrate ER (Imdur) 30 MG 24 hr tablet Take 30 mg by mouth in the morning. 05/01/2023 Active losartan potassium 25 mg oral tablet (16 sources) Angiotensin 2 Receptor Raina Start: 07-23-2023 [...] 12, 2023 1:00am July 23, 2023 10:06am 24 hr nicotine 0.583 mg/hr transdermal system (8 sources) Cholinergic Nicotinic Agonist Start: 09-18-2023 End: 12-25-2023 apply 1 dose transdermal route once daily Nicotine Discontinued 1 PATCH TRANSDERML Daily September 18, 2023 12:00am December 25, 2023 3:01pm Start: 09-10-2023 End: 04-27-2024 apply 1 dose transdermal route every twenty-four hours nicotine (Nicoderm CQ) 14 MG/24HR patch Indications: Tobacco user Place 1 patch over 24 hours on the skin 1 (one) time each day at the same time 30 patch 1 09/10/2023 04/27/2024 Discontinued (Therapy completed) Problems Active Problems Problem Classification Problem Date Documented Da te Episodic/Chronic Acute myocardial infarction (16 sources) Myocardial infarction; Translations: [Non-ST elevation (NSTEMI) myocardial infarction] Onset: 07-11-2023 04-10-2023 Chronic Anxiety disorders (18 sources) Anxiety state; Translations: [Anxiety state, unspecified] Onset: 11-19-2018 05-09-2023 Chronic Congestive heart failure; nonhypertensive (20 sources) Systolic heart failure; Translations: [Unspecified systolic (congestive) heart failure] Onset: 05-09-2023 Resolved: 04-27-2024 05-09-2023 Chronic Coronary atherosclerosis and other heart disease (20 sources) History of non-ST segment elevation myocardial infarction; Translations: [Old myocardial infarction] Onset: 05-09-2023 Chronic Coronary atherosclerosis and other heart disease (5 sources) Patient post percutaneous transluminal coronary angioplasty; Translations: [Coronary angioplasty status] Episodic Diabetes mellitus with complications (20 sources) Type 2 diabetes mellitus with hyperglycemia; Translations: [Hyperglycemia due to type 2 diabetes mellitus] Onset: 01-07-2022 05-09-2023 Chronic Diabetes mellitus without complication (12 sources) Type 2 diabetes mellitus; Translations: [Type 2 diabetes mellitus without complications] Onset: 08-16-2017 04-10-2023 Chronic Diseases of mouth; excluding dental (4 sources) Recurrent aphthous stomatitis; Translations: [Recurrent oral aphthae] Episodic Disorders of lipid metabolism (20 sources) Hyperlipidemia; Translations: [Hyperlipidemia, unspecified] Onset: 10-19-2015 04-10-2023 Chronic Essential hypertension (20 sources) Hypertensive disorder; Translations: [Essential (primary) hypertension] Onset: 05-09-2023 04-10-2023 Chronic Menopausal disorders (8 sources) Menopausal symptom; Translations: [Menopausal and female climacteric states] Onset: 07-11-2023 07-11-2023 Chronic Menstrual disorders (20 sources) Dysmenorrhea; Translations: [Dysmenorrhea, unspecified] Onset: 04-29-2023 04-29-2023 Chronic Nausea and vomiting (7 sources) Nausea and vomiting; Translations: [Nausea with vomiting, unspecified] Onset: 02-18-2024 02-18-2024 Episodic Other circulatory disease (4 sources) Elevated [...] Episodic Other nutritional; endocrine; and metabolic disorders (16 sources) Body mass index 30+ - obesity; [...] cyst, right side] Episodic Residual codes; unclassified (17 sources) Obstructive sleep apnea syndrome; Translations: [Obstructive sleep apnea (adult) (pediatric)] Onset: 05-08-2023 04-10-2023 Chronic Residual codes; unclassified (3 sources) Obstructive sleep apnea (adult) (pediatric); Translations: [Obstructive sleep apnea (adult)(pediatric)] 04-12-2023 Chronic Residual codes; unclassified (3 sources) Tobacco use; Translations: [Tobacco use disorder] 04-12-2023 Episodic Residual codes; unclassified (12 sources) Tobacco user; Translations: [Tobacco use] Onset: 07-11-2023 07-11-2023 Episodic Thyroid disorders (20 sources) Hypothyroidism, unspecified; Translations: [Hypothyroidism] Onset: 01-04-2022 Chronic Unclassified (4 sources) Acute candidiasis of vulva and vagina; Translations: [Acute candidiasis of vulva and vagina] Viral infection (10 sources) Herpesviral vesicular dermatitis; Translations: [Herpesviral vesicular dermatitis] Onset: 02-17-2024 02-17-2024 Episodic Viral infection (4 sources) Disease caused [...] and of unspecified site] Onset: 01-15-2018 Episodic Hemorrhoids (11 sources) Hemorrhoids; Translations: [Unspecified hemorrhoids] Onset: 09-10-2023 09-10-2023 Episodic Mycoses (10 sources) Candidiasis of vagina; Translations: [Yeast infection of the vagina] Onset: 04-29-2023 04-29-2023 Episodic Noninfectious gastroenteritis (4 sources) Non-infective enteritis and colitis; Translations: [Noninfective gastroenteritis and colitis, unspecified] Onset: 08-16-2017 Episodic Other connective tissue disease (4 sources) Pain in limb; Translations: [Pain in left toe(s)] Onset: 10-08-2017 Episodic Other screening for suspected conditions (not mental disorders or infectious disease) (12 sources) Patient encounter status; Translations: [Encounter for screening mammogram for malignant neoplasm of breast] Onset: 08-26-2023 08-26-2023 Episodic Other upper respiratory infections (4 sources) Acute maxillary sinusitis; Translations: [Acute recurrent maxillary sinusitis] Onset: 07-26-2016 Episodic Otitis media and related conditions (4 sources) Eustachian tube salpingitis; Translations: [Unspecified Eustachian salpingitis, left ear] Onset: 11-19-2018 Episodic Pneumonia (except that caused by tuberculosis or sexually transmitted disease) (10 sources) Pneumonia; Translations: [Pneumonia, unspecified organism] Onset: 05-01-2011 Resolved: 05-20-2023 05-20-2023 Episodic Residual codes; unclassified (13 sources) Harmful pattern of use of nicotine; Translations: [Tobacco use] Onset: 07-11-2023 04-10-2023 Episodic Spondylosis; intervertebral disc disorders; other back problems (10 sources) Low back pain; Translations: [Lumbar back pain] Onset: 06-06-2023 06-06-2023 Episodic Urinary tract infections (6 sources) Acute cystitis; Translations: [Acute cystitis without hematuria] Onset: 01-16-2024 01-16-2024 Episodic Results Test Name Value Interpretation Reference Range Facility HbA1c (Bld) [Mass fraction]o n 04-27-2024 Interpretation and review of laboratory results Abnormal [facility] - Hematology and Cell countson 04-27-2024 HbA1c (Bld) [Mass fraction] 7.3 % [facility] echo transthoracicon [facility] echo transthoracic [facility] Main [place] [address] [place], [place] [id number] Echocardiogram Signed Patient: Lorraine Mitchell MR#: [id number] 93 : 1975 Acct:[id number] Age/Sex: 48 / F ADM Date: 04/24/24 Loc: Room: Type: [facility] Attending Dr: Stephanie Sweet MD Ordering Provider: Stephanie Sweet MD Date of Service: 04/24/24 [facility] echo transthoracic: I50.20 - Unspecified systolic (congestive) heart failure Copies to: Stephanie Sweet MD BSA: 1.9 m2 BP: 111/74 mmHg HR: 73 Reason For Study: I50.20 - Unspecified systolic (congestive) heart failure History: HTN, HLD, DM, Smoker, CAD, Stents, [place], PIPPA, COVID Interpretation Summary The LV ejection fraction is mildly decreased. Ejection Fraction = 45-50%. There is mild global hypokinesis of the left ventricle. A variety of Doppler measurements indicate normal left ventricular diastolic function. Compared to previous study, LV systolic function has improved. Procedure/Quality: A two-dimensional transthoracic echocardiogram with color flow, Doppler and injection of contrast agent Definity was performed. The study was technically good in quality. Left Ventricle: The left ventricular size is normal. The left ventricular thickness is normal. Ejection Fraction = 45-50%. The LV ejection fraction is mildly decreased . A variety of Doppler measurements indicate normal left ventricular diastolic function. There is mild global hypokinesis of the left ventricle. Left Atrium: The left atrium appears normal in size. Right Atrium: The right atrium appears normal in size. Right Ventricle: The right ventricle is normal in size and function. Aortic Valve: The aortic valve is normal in structure. No hemodynamically significant valvular aortic stenosis. No aortic regurgitation is present. Mitral Valve: The mitral valve is normal in structure. No significant mitral valve stenosis. There is no mitral regurgitation noted. Tricuspid Valve: The tricuspid valve is normal in structure. No tricuspid regurgitation. Pulmonic Valve: The pulmonic valve is not well visualized. No significant pulmonic regurgitation. Arteries: The aortic root is normal size. Pericardium/Pleura: No pericardial effusion seen. There is no pleural effusion. IVC/Hepatic Veins: The inferior vena cava is normal in size, with a normal collapsibility index. Measurements with Normals IVSd: 1.2 cm (0.7-1.1 cm)LVIDd: 4.8 cm (3.7-5.4 cm) LVPWd: 1.2 cm (0.7-1.1 cm)LVIDs: 3.3 cm (2.3-3.6 cm) LA dimension: 3.3 cm (2.3-4.0 cm)Ao root diam: 3.6 cm(2.0-3.6 cm) asc Aorta Diam: 3.3 cm(2.1-3.4cm) Doppler with Normals RVSP(TR): 21.6 mmHg (18-35mmHg) LV V1 max: 84.8 cm/sec (0.7-1.7m/s)MV E max george: 72.0 cm/sec(0.8-1.3m/s) MV A max george: 82.3 cm/sec(0.0-0.0m/s) MV E/A: 0.88 (<1.5) MMode/2D Measurements Calculations RVDd: 2.8 cm FS: 31.6 % Ao root area: LVOT diam: 2.1 cm TAPSE: 2.3 cm EDV(Teich): 10.0 cm2 LVOT area: 3.5 cm2 RV S George: 109.7 ml 13.3 cm/sec ESV(Teich): 44.5 ml EF(Teich): 59.4 % __ LVLd ap4: 9.4 cm SV(MOD-sp4): LAV(MOD-sp4): LA A2 area: 16.6 cm2 EDV(MOD-sp4): 81.0 ml 50.8 ml 189.0 ml LAV(MOD-sp2): LA A4 area: 19.0 cm2 LVLs ap4: 8.0 cm 40.8 ml LA length (vol): ESV(MOD-sp4): 5.7 cm 108.0 ml LA vol: 47.2 ml EF(MOD-sp4): 42.9 % LA vol index: 24.4 ml/m2 Doppler Measurements Calculations MV dec time: MV V2 max: E/E' lat: 8.8 MV P1/2t max george: 0.21 sec 82.1 cm/sec E/E' med: 11.4 76.0 cm/sec MV max PG: MV P1/2t: 66.8 msec 2.7 mmHg MV V2 mean: MVA(P1/2t): 3.3 cm2 58.8 cm/sec MV dec slope: MV mean P.5 cm/sec2 1.5 mmHg MV V2 VTI: 21.7 cm MVA(VTI): 2.8 cm2 __ Ao V2 max: LV V1 max PG: TV max PG: TR max george: 125.1 cm/sec 2.9 mmHg 17.0 mmHg 203.6 cm/sec Ao max P.3 mmHgLV V1 mean PG: TR max P.6 mmHg Ao mean P.7 mmHg RAP systole: 5.0 mmHg 3.3 mmHg LV V1 mean: Ao V2 mean: 63.3 cm/sec 84.3 cm/sec LV V1 VTI: 17.4 cm Ao V2 VTI: 24.0 cm TODD(I,D): 2.5 cm2 TODD(V,D): 2.4 cm2 Transcribed By: SANDI Performed At: 04/24/24 1343 Signed By: Stephanie Sweet MD 04/24/24 4910 Normal [facility] echo transthoracicon [facility] [place] [address] Echocardiogram Signed Patient: Lorraine Mitchell MR#: [id number] 93 : 1975 Acct:[id number] Age/Sex: 47 / F ADM Date: 07/12/23 Loc: Room: [facility] [facility] Attending Dr: Stephanie Sweet MD Ordering [...] Signed By: Grace Solorio MD 07/12/23 1521 Normal [facility] ALL LIPID PROFILE (FASTING)o n 07-06-2023 CHOL HDL RATIO 3.8 [facility] Comment on above: 3.3 - 4.4 LOW RISK 4.4 - 7.1 AVERAGE RISK 7.1 - 11.0 MODERATE RISK >11.0 HIGH RISK Cholesterol [Mass/Vol] 124 mg/dL NINF - 200 mg/dL [facility] Cholesterol in HDL [Mass/Vol] 33 mg/dL Low 40 - 60 mg/dL [facility] Comment on above: > or =60 mg/dl - LOW CARDIOVASCULAR RISK <40 mg/dl - HIGH CARDIOVASCULAR RISK Magnesium [Mass/Vol] 37.0 mg/dL [facility] Comment on above: <100 mg/dl OPTIMAL 100-129 mg/dl NEAR OR ABOVE OPTIMAL 130-159 mg/dl BORDERLINE HIGH 160-189 mg/dl HIGH >190 mg/dl VERY HIGH Magnesium [Mass/Vol] 54.2 mg/dL [facility] Triglyceride [Mass/Vol] 271 mg/dL High NINF - 150 mg/dL [facility] 07-06-2023 ALT [Catalytic activity/Vol] 37 U/L 14 - 59 U/L [facility] Jenny 07-06-2023 AST [Catalytic activity/Vol] 13 U/L Low 15 - 37 U/L [facility] No Panel Informationon 07-06 Interpretation and review of laboratory results Abnormal [facility] Glucose Glucometer (BldC) [M ass/Vol]Ordered By: Floretnino Kenyon on 04-12-2023 Glucose [Mass/Vol] 226 mg/dL [facility] Comment on above: Random Glucose Refer ence Range is dependent on time and content of last meal. Glucose of more than 200 mg/dL in a nonstressed, ambulatory subject supports the diagnosis of Diabetes Mellitus. Troponin I.cardiac [Mass/vol ume] in Serum or Plasma by Detection limit <= 0.01 ng/Ordered By: Magali Cortez on 04-12-2023 Troponin I.cardiac DL <= 0.01 ng/mL [Mass/Vol] 3417.1 pg/mL 0.0-15.0 [facility] Comment on above: Critical Result : Ca lled to and read back by: CLAYTON MCCLOUD at: 04/12/2023 06:08:29 by:[email or web address] Activated partial thrombopla stin time (aPTT) in platelet poor plasma by coagulation aOrdered By: Stephanie Sweet on 04-11-2023 aPTT Coag (PPP) [Time] 29.3 s 25.1-36.5 [facility] Comment on above: A hematocrit value g reater than 55% may lead to inaccurate results in coagulation testing. Patients having hematocrit values >55% require a special collection tube for coagulation studies. Please contact the laboratory at [phone] for redraw instructions. Basophils Auto (Bld) [#/Vol] Ordered By: Stephanie Sweet on 04-11-2023 Basophils (Bld) [#/Vol] 0.0 10*3/uL 0.0-0.2 [facility] Basophils/100 WBC Auto (Bld) Ordered By: Stephanie Sweet on 04-11-2023 Basophils/100 WBC (Bld) 0.5 % . [facility] Carbon dioxide, total [Moles /volume] in Serum or PlasmaOrdered By: Stephanie Sweet on 04-11-2023 CO2 [Moles/Vol] 26.7 mmol/L 21.0-31.0 [place] Chloride [Moles/volume] in S ambika or PlasmaOrdered By: Stephanie Sweet on 04-11-2023 Chloride [Moles/Vol] 101 mmol/L 98-[address] [facility] Creatine kinase [Enzymatic a ctivity/volume] in Serum or PlasmaOrdered By: Florentino Kenyon on 04-11-2023 CK [Catalytic activity/Vol] 186 U/L 30-223 [facility] Creatinine [Mass/volume] in Serum or PlasmaOrdered By: Stephanie Sweet on 04-11-2023 Creatinine [Mass/Vol] 0.47 mg/dL 0.60-1.20 [facility] Eosinophils Auto (Bld) [#/Vo l]Ordered By: Stephanie Sweet on 04-11-2023 Eosinophils (Bld) [#/Vol] 0.1 10*3/uL 0.0-0.45 [facility] Eosinophils/100 WBC Auto (Bl d)Ordered By: Stephanie Sweet on 04-11-2023 Eosinophils/100 WBC (Bld) 0.9 % . [facility] Erythrocyte distribution wid th Auto (RBC) [Ratio]Ordered By: Stephanie Sweet on 04-11-2023 Erythrocyte distribution width (RBC) [Ratio] 14.5 % 11.9-15.3 [facility] Hematocrit Auto (Bld) [Volum e fraction]Ordered By: Stephanie Sweet on 04-11-2023 Hematocrit (Bld) [Volume fraction] 35.1 % 34.0-46.4 [facility] Hemoglobin [Mass/volume] in BloodOrdered By: Stephanie Sweet on 04-11-2023 Hemoglobin (Bld) [Mass/Vol] 11.8 g/dL 11.8-15.4 [facility] INR in Platelet poor plasma by Coagulation assayOrdered By: Stephanie Sweet on 04-11-2023 INR Coag (PPP) [Relative time] 1.0 {INR} [facility] Comment on above: INR Therapeutic Rang e [...] 10*3/uL 3.8-11.6 [facility] Lymphocytes Auto (Bld) [#/Vo l]Ordered By: Stephanie Sweet on 04-11-2023 Lymphocytes (Bld) [#/Vol] 3.0 10*3/uL 1.00-4.8 [facility] Lymphocytes/100 WBC Auto (Bl d)Ordered By: Stephanie Sweet on 04-11-2023 Lymphocytes/100 WBC (Bld) 33.4 % . [facility] MCH Auto (RBC) [Entitic mass ]Ordered By: Stephanie Sweet on 04-11-2023 MCH (RBC) [Entitic mass] 30.7 pg 24.7-34.3 [facility] MCHC Auto (RBC) [Mass/Vol]Or dered By: Stephanie Sweet on 04-11-2023 MCHC (RBC) [Mass/Vol] 33.7 g/dL 32.0-35.0 [facility] MCV Auto (RBC) [Entitic vol] Ordered By: Stephanie Sweet on 04-11-2023 MCV (RBC) [Entitic vol] 91.1 fL 80-100 [facility] Monocytes Auto (Bld) [#/Vol] Ordered By: Stephanie Sweet on 04-11-2023 Monocytes (Bld) [#/Vol] 0.5 10*3/uL 0.0-0.8 [facility] Monocytes/100 WBC Auto (Bld) Ordered By: Stephanie Sweet on 04-11-2023 Monocytes/100 WBC (Bld) 5.8 % . [facility] Neutrophils Auto (Bld) [#/Vo l]Ordered By: Stephanie Sweet on 04-11-2023 Neutrophils (Bld) [#/Vol] 5.3 10*3/uL 1.8-7.7 [facility] Neutrophils/100 WBC Auto (Bl d)Ordered By: Stephanie Sweet on 04-11-2023 Neutrophils/100 WBC (Bld) 59.4 % . [facility] No Panel InformationOrdered By: Florentino Kenyon on 04-11-2023 Bedside Glucose Comment Glu2: cleaned meter [facility] No Panel InformationOrdered By: Stephanie Sweet on 04-11-2023 Estimated GFR (CKD-EPI) > 60.0 mL/Min [facility] Creatinine Clearance (Chem 166.11 [facility] Nucleated erythrocytes [Pres ence] in Blood by Automated countOrdered By: Stephanie Sweet on 04-11-2023 Nucleated RBC Auto Ql (Bld) 0.1 /100{WBC} 0-0.5 [facility] Platelet mean volume Auto (B ld) [Entitic vol]Ordered By: Stephanie Sweet on 04-11-2023 Platelet mean volume (Bld) [Entitic vol] 9.4 fL 6.3-10.7 [facility] Platelets Auto (Bld) [#/Vol] Ordered By: Stephanie Sweet on 04-11-2023 Platelets (Bld) [#/Vol] 213 10*3/uL 150-450 [facility] Potassium [Moles/volume] in Serum or PlasmaOrdered By: Stephanie Sweet on 04-11-2023 Potassium [Moles/Vol] 3.8 mmol/L 3.5-5.1 [facility] Prothrombin time (PT)Ordered By: Stephanie Sweet on 04-11-2023 PT Coag (PPP) [Time] 12.0 s 9.0-12.[address] [facility] Comment on above: A hematocrit value g reater than 55% may lead to inaccurate results in coagulation testing. Patients having hematocrit values >55% require a special collection tube for coagulation studies. Please contact the laboratory at [phone] for redraw instructions. RBC Auto (Bld) [#/Vol]Ordere d By: Stephanie Sweet on 04-11-2023 RBC (Bld) [#/Vol] 3.85 10*6/uL 3.60-5.00 [facility] Serum or plasma anion gap de terminationOrdered By: Stephanie Sweet on 04-11-2023 Anion gap [Moles/Vol] 12.1 mmol/L 6.0-15.0 [facility] Sodium [Moles/volume] in Ser um or PlasmaOrdered By: Stephanie Sweet on 04-11-2023 Sodium [Moles/Vol] 136 mmol/L 136-145 [facility] Urea nitrogen [Mass/volume] in Serum or PlasmaOrdered By: Stephanie Sweet on 04-11-2023 Urea nitrogen [Mass/Vol] 11 mg/dL 7-25 [facility] WBC Auto (Bld) [#/Vol]Ordere d By: Stephanie Sweet on 04-11-2023 WBC (Bld) [#/Vol] 9.0 10*3/uL 3.8-11.6 [facility] FREE T4on 08-04-2022 Free T4 [Mass/Vol] 0.91 ng/dL Normal 0.76-1.46 [facility] Comment on above: Performed By: #### F T4 #### [facility] [address] [place] [address] Dr. Jane Alexis LAB TESTINGon 01-04-2022 RECV HEADER SEE SCANNED REPORT IN HPF [facility] Comment on above: Performed By: #### M ISC #### [facility] [address] [place] [address] Dr. Jane Alexis REV FROM REF LAB 01/05/22 [facility] Comment on above: Performed By: #### M ISC #### [facility] [address] [place] [address] Dr. Jane Alexis SENT TO REF LAB 01/04/22 [facility] Comment on above: Performed By: #### M ISC #### [facility] [address] [place] [address] Dr. Jane Alexis TSHon 01-04-2022 TSH 2.294 uIU/mL Normal 0.358-3.740 [facility] Comment on above: Performed By: #### T SH #### [facility] [address] [place] [address] Dr. Jane Alexis Physician Referralon 021 Physician Referral [id number] Normal [facility] Vital Signs Date Time Vital Sign Value Performing Clinician Facility 04-27-2024 11:39-0500 Body height 165.1 cm Nelida Ambrosio CISCO ADMINISTRATOR Work Phone: [facility] 04-27-2024 11:39-0500 Body mass index (BMI) [Ratio] 31.78 kg/m2 Nelida Ambrosio CISCO ADMINISTRATOR Work Phone: [facility] 04-27-2024 11:39-0500 Body temperature 98.1 [degF] Nelida Ambrosio CISCO ADMINISTRATOR Work Phone: [facility] 04-27-2024 11:39-0500 Body weight 86.64 kg Nelida Ambrosio CISCO ADMINISTRATOR Work Phone: [facility] 04-27-2024 11:39-0500 Diastolic blood pressure 78 mm[Hg] Nelida Ambrosio CISCO ADMINISTRATOR Work Phone: [facility] 04-27-2024 11:39-0500 Heart rate 81 /min Nelidamakayla Ambrosio CISCO ADMINISTRATOR Work Phone: [facility] 04-27-2024 11:39-0500 Respiratory rate 18 /min Nelida Ambrosio CISCO ADMINISTRATOR Work Phone: [facility] 04-27-2024 11:39-0500 SaO2% (BldA) [Mass fraction] 96 % Nelida Ambrosio CISCO ADMINISTRATOR Work Phone: [facility] 04-27-2024 11:39-0500 Systolic blood pressure 104 mm[Hg] Nelida Ambrosio CISCO ADMINISTRATOR Work Phone: [facility] 03-18-2024 13:30-0400 Body height 160.02 cm [facility] 03-18-2024 13:30-0400 Body mass index (BMI) [Ratio] 34.2 kg/m2 [facility] 03-18-2024 13:30-0400 Body weight 87.54 kg [facility] 03-18-2024 13:30-0400 Diastolic blood pressure 74 mm[Hg] [facility] 03-18-2024 13:30-0400 Heart rate 82 /min [facility] 03-18-2024 13:30-0400 Respiratory rate 18 /min [facility] 03-18-2024 13:30-0400 SaO2% (BldA) [Mass fraction] 97 % [facility] 03-18-2024 13:30-0400 Systolic blood pressure 116 mm[Hg] [facility] 12-25-2023 15:04-0400 Body height 165.1 cm [facility] 12-25-2023 15:04-0400 Body mass index (BMI) [Ratio] 32.9 kg/m2 [facility] 12-25-2023 15:04-0400 Body weight 89.81 kg [facility] 12-25-2023 15:04-0400 Diastolic blood pressure 80 mm[Hg] [facility] 12-25-2023 15:04-0400 Heart rate 73 /min [facility] 12-25-2023 15:04-0400 Respiratory rate 18 /min [facility] 12-25-2023 15:04-0400 SaO2% (BldA) [Mass fraction] 97 % [facility] 12-25-2023 15:04-0400 Systolic blood pressure 120 mm[Hg] [facility] 09-18-2023 15:52-0400 Body height 165.1 cm MD Shilpa Lewis Work Phone: [facility] 09-18-2023 15:52-0400 Body mass index (BMI) [Ratio] 31.4 kg/m2 MD Shilpa Lewis Work Phone: [facility] 09-18-2023 15:52-0400 Body weight 85.72 kg MD Shilpa Lewis Work Phone: [facility] 09-18-2023 15:52-0400 Diastolic blood pressure 68 mm[Hg] MD Shilpa Lewis Work Phone: [facility] 09-18-2023 15:52-0400 Heart rate 76 /min MD Shilpa Lewis Work Phone: [facility] 09-18-2023 15:52-0400 Respiratory rate 18 /min MD Shilpa Lewis Work Phone: [facility] 09-18-2023 15:52-0400 SaO2% (BldA) [Mass fraction] 96 % MD Shilpa Lewis Work Phone: [facility] 09-18-2023 15:52-0400 Systolic blood pressure 122 mm[Hg] MD Shilpa Lewis Work Phone: [facility] 07-24-2023 09:16-0500 Body height 165.1 cm MD Shilpa Lewis Work Phone: [facility] 07-24-2023 09:16-0500 Body mass index (BMI) [Ratio] 31.8 kg/m2 MD Shilpa Lewis Work Phone: [facility] 07-24-2023 09:16-0500 Body weight 86.63 kg MD Shilpa Lewis Work Phone: [facility] 07-24-2023 09:16-0500 Diastolic blood pressure 82 mm[Hg] MD Shilpa Lewis Work Phone: [facility] 07-24-2023 09:16-0500 Heart rate 80 /min MD Shilpa Lewis Work Phone: [facility] 07-24-2023 09:16-0500 Respiratory rate 18 /min MD Shilpa Lewis Work Phone: [facility] 07-24-2023 09:16-0500 SaO2% (BldA) [Mass fraction] 97 % MD Shilpa Lewis Work Phone: [facility] 07-24-2023 09:16-0500 Systolic blood pressure 126 mm[Hg] MD Shilpa Lewis Work Phone: [facility] 07-11-2023 15:46-0500 Body height 165.1 cm Nelida Ambrosio CISCO ADMINISTRATOR Work Phone: [facility] 07-11-2023 15:46-0500 Body mass index (BMI) [Ratio] 31.68 kg/m2 Nelida Daily CISCO ADMINISTRATOR Work Phone: [facility] 07-11-2023 15:46-0500 Body temperature 97.39 [degF] Nelida Daily CISCO ADMINISTRATOR Work Phone: [facility] 07-11-2023 15:46-0500 Body weight 86.36 kg Nelidamakayla Ambrosio CISCO ADMINISTRATOR Work Phone: [facility] 07-11-2023 15:46-0500 Diastolic blood pressure 78 mm[Hg] Nelida Ambrosio CISCO ADMINISTRATOR Work Phone: [facility] 07-11-2023 15:46-0500 Heart rate 96 /min Nelida Ambrosio CISCO ADMINISTRATOR Work Phone: [facility] 07-11-2023 15:46-0500 Respiratory rate 18 /min Nelida Ambrosio CISCO ADMINISTRATOR Work Phone: [facility] 07-11-2023 15:46-0500 SaO2% (BldA) [Mass fraction] 97 % Nelida Ambrosio CISCO ADMINISTRATOR Work Phone: [facility] 07-11-2023 15:46-0500 Systolic blood pressure 118 mm[Hg] Nelida Ambrosio CISCO ADMINISTRATOR Work Phone: [facility] 05-01-2023 11:40-0500 Body height 165.1 cm Stephanie Kee Other [facility] 05-01-2023 11:40-0500 Body mass index (BMI) [Ratio] 31.95 kg/m2 Stephanie Kee Other [facility] [employer] Other 05-01-2023 11:40-0500 Body weight 87.09 kg Stephanie Kee Other [facility] Other 05-01-2023 11:40-0500 Body weight 87.08 kg MD Shilpa Lewis Work Phone: [facility] 05-01-2023 11:40-0500 Diastolic blood pressure 82 mm[Hg] Stephanie Kee Other [facility] 05-01-2023 11:40-0500 Respiratory rate 20 /min Stephanie Kee Other [facility] Other 05-01-2023 11:40-0500 SaO2% (BldA) [Mass fraction] 96 % Stephanie Kee Other [facility] [employer] Other 05-01-2023 11:40-0500 Systolic blood pressure 136 mm[Hg] Stephanie Sweet Other [facility] 04-12-2023 11:44-0500 Body temperature 98.7 [degF] MD Shilpa Lewis Work Phone: [facility] 04-12-2023 11:44-0500 Diastolic blood pressure 69 mm[Hg] MD Shilpa Lewis Work Phone: [facility] 04-12-2023 11:44-0500 Heart rate 82 /min MD Shilpa Lewis Work Phone: [facility] 04-12-2023 11:44-0500 Respiratory rate 18 /min MD Shilpa Lewis Work Phone: [facility] 04-12-2023 11:44-0500 SaO2% (BldA) [Mass fraction] 95 % MD Shilpa Lewis Work Phone: [facility] 04-12-2023 11:44-0500 Systolic blood pressure 113 mm[Hg] MD Shilpa Lewis Work Phone: [facility] 04-12-2023 06:00-0500 Body weight 88.7 kg MD Shilpa Lewis Work Phone: [facility] 04-12-2023 04:33-0500 Inhaled oxygen concentration 21 % MD Shilpa Lewis Work Phone: [facility] 04-10-2023 10:18-0500 Body height 165.1 cm MD Shilpa Lewis Work Phone: [facility] Encounters Encounter Date Encounter Type Care Provider Facility Start: 04-27-2024 End: 04-27-2024 Bamboo flowsheet Nelida Ambrosio CISCO ADMINISTRATOR Work Phone: [facility] Start: 04-27-2024 End: 04-27-2024 Bamboo flowsheet Nelida Ambrosio CISCO ADMINISTRATOR Work Phone: [facility] Start: 04-27-2024 End: 04-27-2024 Office outpatient visit 25 minutes Nelida Aicjaradz CISCO ADMINISTRATOR Work Phone: [facility] Comment on above: Type 2 diabetes gerald itus with hyperglycemia, without long-term current use of insulin (CMS/HCC) (Primary Dx); PIPPA (obstructive sleep apnea); Systolic heart failure, unspecified HF chronicity (CMS/HCC); Essential (primary) hypertension (CMS/[facility]); Obesity with body mass index (BMI) of 30.0 to 39.9; Hypothyroidism (acquired) ([facility]); Tobacco user; Anxiety; Diabetic polyneuropathy associated with type 2 diabetes mellitus ([facility]) Start: 04-27-2024 End: 04-27-2024 ambulatory NELIDA AICHHOLZ Not Available Start: 04-24-2024 End: 04-24-2024 ambulatory [facility] Facility:[facility] Start: 04-12-2024 End: 04-12-2024 Refill Nelida Aichholz CISCO ADMINISTRATOR Work Phone: [facility] Comment on above: Type 2 diabetes gerald itus with hyperglycemia, without long-term current use of insulin ([facility]/HCC) Start: 03-26-2024 End: 03-26-2024 Refill Nelida Aichholz CISCO ADMINISTRATOR Work Phone: [facility] Comment on above: Other hemorrhoids (P rimary Dx); Nausea and vomiting, unspecified vomiting type Start: 03-18-2024 End: 03-18-2024 ambulatory [facility] Work Phone: Start: 03-18-2024 End: 03-18-2024 Patient encounter procedure [facility] Work Phone: Start: 03-08-2024 End: 03-08-2024 Refill Nelida Aichholz CISCO ADMINISTRATOR Work Phone: [facility] Comment on above: Acute heart failure, unspecified heart failure type (CMS/HCC); Essential (primary) hypertension ([facility]); Coronary artery disease involving [place] coronary artery of [place] heart with angina pectoris ([facility]/HCC); Mixed hyperlipidemia ([facility]) Start: 01-23-2024 End: 01-23-2024 ambulatory NELIDA DAILY Not Available Start: 12-25-2023 End: 12-25-2023 Patient encounter procedure [facility] Work Phone: Start: 11-11-2023 End: 11-11-2023 ambulatory MARYELLEN SAUCEDO Not Available Start: 09-18-2023 End: 09-18-2023 ambulatory MD Shilpa Lewis Work Phone: [facility] Work Phone: Start: 09-18-2023 End: 09-18-2023 Patient encounter procedure MD Shilpa Lewis Work Phone: [facility] Work Phone: Start: 09-10-2023 End: 09-10-2023 ambulatory NELIDA DAILY Not Available Start: 07-24-2023 End: 07-24-2023 ambulatory MD Shilpa Lewis Work Phone: [facility] Work Phone: Start: 07-24-2023 End: 07-24-2023 Patient encounter procedure MD Shilpa Lewis Work Phone: [facility] Card[facility] Work Phone: Start: 07-12-2023 End: 07-12-2023 Patient encounter procedure MD Shilpa Lewis Work Phone: [facility] Work Phone: Start: 07-12-2023 End: 07-12-2023 ambulatory MD Shilpa Lewis Work Phone: [facility] Work Phone: Start: 07-11-2023 End: 07-11-2023 ambulatory NELIDA DARRELLZ Not Available Start: 07-11-2023 End: 07-11-2023 Office outpatient visit 25 minutes Nelida Daily CISCO ADMINISTRATOR Work Phone: [facility] Comment on above: Type 2 diabetes gerald itus with hyperglycemia, without long-term current use of insulin ([facility]) (Primary Dx); Obesity with body mass index (BMI) of 30.0 to 39.9; Tobacco user; Essential (primary) hypertension ([facility]); Acute heart failure, unspecified heart failure type ([facility]); Anxiety Start: 07-11-2023 Bamboo flowsheet Nelida Ambrosio CISCO ADMINISTRATOR Work Phone: [facility] Start: 07-11-2023 Bamboo flowsheet Nelida Daily CISCO ADMINISTRATOR Work Phone: [facility] Start: 07-06-2023 Clinisync Result Encounter Nelida Daily CISCO ADMINISTRATOR Work Phone: [facility] Unsolicited Start: 07-06-2023 Clinisync Result Encounter Nelida Daily CISCO ADMINISTRATOR Work Phone: [facility] Unsolicited Start: 06-11-2023 End: 06-11-2023 ambulatory Stephanie Sweet Other [facility] Other Start: 06-11-2023 Telephone encounter Stephanie Davis [employer] Start: 06-10-2023 End: 06-10-2023 ambulatory Stephanie Sweet Other [facility] Other Start: 06-10-2023 Telephone encounter Stephanie Davis Cardiology Start: 05-20-2023 End: 05-20-2023 ambulatory NELIDA AMBROSIO Not Available Start: 05-08-2023 End: 05-08-2023 ambulatory Stephanie Sweet Other [facility] Other Start: 05-08-2023 Telephone encounter Stephanie Davis Cardiology Start: 05-01-2023 End: 05-01-2023 ambulatory Stephanie Sweet Other [facility] Other Start: 05-01-2023 Office outpatient vi sit 25 minutes Stephanie Kee [facility] Start: 05-01-2023 End: 05-01-2023 Patient encounter procedure MD Shilpa Lewis Work Phone: [facility] Work Phone: Start: 04-10-2023 End: 04-12-2023 Evaluation and management of inpatient MD Shilpa Lewis Work Phone: [facility] [place] [facility] Work Phone: Start: 01-04-2022 End: 01-05-[address] SHILPA LEWIS Facility:[facility]1 Procedures Date Procedure Procedure Detail Performing Clinician Start: 04-27-2024 Hemoglobin glycosyla davidson a1c Nelida Aichholz CISCO ADMINISTRATOR Work Phone: Start: 12-24-2023 Colonoscopy Nelida Aichh olz CISCO ADMINISTRATOR Work Phone: Start: 11-07-2023 Mammography Nelida Aichh olz CISCO ADMINISTRATOR Work Phone: Start: 07-06-2023 ALL LIPID PROFILE (FASTING) Nelida Aichholz CISCO ADMINISTRATOR Work Phone: Start: 07-06-2023 [facility] ALT Nelida Aichh olz CISCO ADMINISTRATOR Work Phone: Start: 07-06-2023 [facility] AST Nelida Aichh olz CISCO ADMINISTRATOR Work Phone: Start: 04-11-2023 MD Shilpa Lewis [...] Treatment Date Care Activity Detail Author Start: 12-23-2033 Screening for malign ant neoplasm of colon [facility] Start: 09-27-2025 Screening for malign ant neoplasm of cervix [facility] Start: 01-26-2025 Urine screening for protein Diabetes: Urine Protein Screening [facility] Start: 11-06-2024 Screening for malign ant neoplasm of breast Mammogram [facility] Start: 07-28-2024 Hemoglobin A1c measurement Diabetes: Hemoglobin A1C [facility] Start: 06-08-2024 End: 06-08-2024 Patient encounter procedure 06/08/2024 11:45 AM EST Office Visit [facility] [address] [place] [phone] Nelida Ambrosio NP [address] [place] [phone] [facility] Start: 04-28-2024 Hemoglobin A1c measurement Diabetes: Hemoglobin A1C [facility] Start: 04-27-2024 End: 04-27-2025 Comprehensive metabolic 2000 panel - Serum or Plasma Comprehensive metabolic panel Lab Routine Essential (primary) hypertension ([facility]/HCC) Type 2 diabetes mellitus with hyperglycemia, without long-term current use of insulin ([facility]/HCC) Expected: 04/27/2024 (Approximate), Expires: 04/27/2025 [facility] Comment on above: Expected: 04/27/2024 (Approximate), Expires: 04/27/2025 Start: 04-27-2024 End: 04-27-2025 Lipid 1996 panel - Serum or Plasma Lipid panel Lab Routine Type 2 diabetes mellitus with hyperglycemia, without long-term current use of insulin (CMS/HCC) Hypothyroidism (acquired) ([facility]/HCC) Expected: 04/27/2024 (Approximate), Expires: 04/27/2025 [facility] Comment on above: Expected: 04/27/2024 (Approximate), Expires: 04/27/2025 Start: 04-27-2024 End: 04-27-2025 Thyrotropin [Units/volume] in Serum or Plasma TSH Lab Routine Hypothyroidism (acquired) (CMS/HCC) Expected: 04/27/2024 (Approximate), Expires: 04/27/2025 [facility] Work Phone: Comment on above: Expected: 04/27/2024 (Approximate), Expires: 04/27/2025 Start: 04-27-2024 End: 04-27-2025 Thyroxine (T4) free [Mass/volume] in Serum or Plasma T4, free Lab Routine Hypothyroidism (acquired) (CMS/HCC) Expected: 04/27/2024 (Approximate), Expires: 04/27/2025 [facility] Comment on above: Expected: 04/27/2024 (Approximate), Expires: 04/27/2025 Start: 04-27-2024 End: 04-27-2024 Patient encounter procedure 04/27/2024 11:45 AM EST Office Visit [facility] [address] [place] [phone] Nelida Ambrosio NP [address] [place] [address] PIPPA (obstructive sleep apnea) (Primary Dx); Systolic heart failure, unspecified HF chronicity ([facility]/HCC); Essential (primary) hypertension ([facility]); Type 2 diabetes mellitus with hyperglycemia, without long-term current use of insulin ([facility]); Obesity with body mass index (BMI) of 30.0 to 39.9; Hypothyroidism (acquired) ([facility]); Tobacco user; Anxiety [facility] Comment on above: PIPPA (obstructive sle ep apnea) (Primary Dx); Systolic heart failure, unspecified HF chronicity (CMS/HCC); Essential (primary) hypertension (CMS/HCC); Type 2 diabetes mellitus with hyperglycemia, without long-term current use of insulin ([facility]); Obesity with body mass index (BMI) of 30.0 to 39.9; Hypothyroidism (acquired) ([facility]/HCC); Tobacco user; Anxiety Start: 04-23-2024 End: 04-23-2024 Patient encounter procedure 04/23/2024 11:45 AM EST Office Visit [facility] [address] [place] [address] Nelida Ambrosio, DANICA [address] [place] [phone] [facility] Start: 11-24-2023 Hemoglobin A1c measurement Diabetes: Hemoglobin A1C [facility] Start: 09-09-2023 End: 09-09-2023 Patient encounter procedure 09/09/2023 3:40 PM EDT Office Visit [facility] [address] [place] [phone] Nelida Ambrosio, DANICA [address] [place] [phone] [facility] Start: 08-02-2023 Hemoglobin A1c measurement Diabetes: Hemoglobin A1C [facility] Start: 08-02-2023 Screening for malign ant neoplasm of breast Mammogram [facility] Comment on above: Postponed from 09/19 (Other Medical Reasons) Start: 07-11-2023 End: 07-11-2023 Patient encounter procedure 07/11/2023 3:40 PM EST Office Visit [facility] [address] [place] [address] Nelida Ambrosio, DANICA [address] [place] [phone] [facility] Start: 04-12-2023 [facility] Start: 04-10-2023 Hospital admission [facility] Start: 04-10-2023 Sleep disorder assessment [facility] Start: 02-01-2023 Influenza vaccination Influenza Vacc ine (#1) [facility] Start: 11-14-1995 Screening for malign ant neoplasm of cervix Pap Smear [facility] Start: 1993 Urine screening for protein Diabetes: Urine Protein Screening [facility] Start: 1984 Glaucoma screening Diabetes: R etinopathy Screening [facility] Start: 1974 Screening for malign ant neoplasm of colon [facility] Patient Education Coronary Angio plasty (DC) Coronary Stenting (DC) Angina (DC) Chest Pain (DC) Coronary Artery Disease (DC) Coronary artery disease in women Drug Eluting Stents [facility] Work Phone: Patient referral [facility] Work Phone: Payers Date Payer Category Payer Private Health Insurance [facility] [id number] 2023 Self-pay [id number] 2019 Private Health Insurance [id number] 1974 Unknown [id number] [id number] 1974 Unknown [id number] 2.16.84 [id number] 1974 Unknown [id number] 2.16.84 [id number] 1974 Unknown [id number] 2.16.84 [id number] 1974 Unknown [id number] 2.16.84 [id number] 1974 Unknown [id number] 2.16.84 [id number] 1974 Unknown [id number] 1959 Private Health Insurance [facility] [id number] Unknown [id number] [id number] Unknown [id number] 2.16.8 [id number] Social History Date Type Detail Facility Start: 04-11-2023 End: 03-18-2024 Tobacco smoking status NHIS Smoker (finding) [facility] Start: 1975 Sex Assigned At Female F [facility] Start: 05-20-2023 End: 09-10-2023 Sex Assigned At [facility] Start: 05-20-2023 [facility] History of tobacco use Cigarette Smoker [facility] Start: 05-20-2023 End: 09-10-2023 Cigarettes smoked current (pack per day) - Reported 0.5 [facility] Start: 05-20-2023 Tobacco use and exposure Smokeless tobacco non-user [facility] Start: 06-19-2023 End: 04-27-2024 Alcohol intake Ex-drinker (finding) [facility] Within [...] Only a little [facility] (I/We) worried [facility] (my/our) food would run out before (I/we) got money to buy more. Never true [facility] Start: 05-20-2023 Alcohol Comment Pepsi:2 cups daily [facility] Start: 1975 Sex Assigned At Not on file [facility] Start: 09-18-2023 Tobacco smoking stat [facility] Ex-smoker (finding) [facility] Medical Equipment Procedure Code Equipment Code Equipment Origin al Text Equipment Identifier Dates CL STENT GARTH FRONTIER 3.5 X 15 FDA Start: 04-11-2023 [id number] Start: 04-17-2023 USE 1 DAILY [id number] Start: 04-17-2023 CL STENT GARTH FRONTIER 3.5 X 15 FDA Start: 04-11-2023 CL STENT GARTH FRONTIER 3.5 X 15 FDA Start: 04-11-2023 CL STENT GARTH FRONTIER 3.5 X 15 FDA Start: 04-11-2023 Blood Sugar Diagnostic (True Metrix Glucose Test Strip) strip Start: 09-18-2023 CL STENT GARTH FRONTIER 3.5 X 15 FDA Start: 04-11-2023 Blood Sugar Diagnostic (True Metrix Glucose Test Strip) strip Start: 09-18-2023 Goals Date Patient Goal Desired Activity /State Functional Status Date Assessment Result Facility 04-12-2023 Functional status Patient at Baseline [facility] Work Phone: Mental Status Date Assessment Result Facility 04-12-2023 Cognitive function Cognitive Sta tus Patient at Baseline [facility] Work Phone: Clinical Notes 04-10-2023 to 04-27-2024 Nelida Ambrosio NP - 04/27/2024 12:45 PM Cleve Ambrosio NP - 04/27/2024 11:45 AM Cleve Ambrosio NP - 04/27/2024 6:55 AM Cleve Ambrosio NP - 04/27/2024 6:54 AM ESTPatient Instructions Note Date & Type Note Facility 04-27-2024 History of Presen t illness Narrative Associated Problem(s): Diabetic polyneuropathy associated with type 2 diabetes mellitus ([facility]) Will trial duloxetine Fu in 6 weeks for recheck Images from the original note were not included. Lorraine Mitchell is a 48 y.o. female presents with chief complaint of No chief complaint on file. HPI: Hypertension This is a chronic problem. The current episode started more than 1 year ago. The problem is unchanged. The problem is controlled. Associated symptoms include anxiety. Pertinent negatives include no blurred vision, chest pain, headaches, orthopnea, palpitations, peripheral edema or shortness of breath. Risk factors for coronary artery disease include diabetes mellitus, dyslipidemia, obesity, sedentary lifestyle and smoking/tobacco exposure. Past treatments include angiotensin blockers and beta blockers. There are no compliance problems. Hypertensive end-organ damage includes CAD/OH and heart failure. Diabetes She presents for her follow-up diabetic visit. She has type 2 diabetes mellitus. Her disease course has been improving. Hypoglycemia symptoms include nervousness/anxiousness. Pertinent negatives for hypoglycemia include no dizziness, headaches, seizures or tremors. Associated symptoms include fatigue. Pertinent negatives for diabetes include no blurred vision, no chest pain, no polydipsia, no polyphagia, no polyuria, no visual change and no weight loss. There are no hypoglycemic complications. Symptoms are stable. Diabetic complications include heart disease and peripheral neuropathy. Pertinent negatives for diabetic complications include no nephropathy. Risk factors for coronary artery disease include diabetes mellitus, dyslipidemia, hypertension, obesity, sedentary lifestyle and tobacco exposure. Current diabetic treatment includes oral agent (dual therapy). She is compliant with treatment most of the time. Her overall blood glucose range is 110-130 mg/dl. An KIMMY inhibitor/angiotensin II receptor raina is being taken. She does not see a tin can feeder.Eye exam is not current. Depression Visit Type: follow-up Patient presents with the following symptoms: depressed mood, fatigue and nervousness/anxiety. Patient is not experiencing: anhedonia, decreased concentration, dry mouth, excessive worry, feelings of worthlessness, irritability, memory impairment, muscle tension, palpitations, restlessness, shortness of breath, suicidal ideas, suicidal planning, thoughts of , weight gain and weight loss. Frequency of symptoms: most days Severity: moderate Compliance with medications: 76-100% Anxiety Presents for follow-up visit. Symptoms include depressed mood and nervous/anxious behavior. Patient reports no chest pain, decreased concentration, dizziness, dry mouth, excessive worry, irritability, muscle tension, nausea, palpitations, restlessness, shortness of breath or suicidal ideas. Symptoms occur occasionally. The severity of symptoms is mild. The patient sleeps 8 hours per night. The quality of sleep is good. Compliance with medications is 76-100%. SUBJECTIVE: MEDICATIONS: Current Outpatient Medications Medication Instructions Alcohol Swabs ([employer] Alcohol Prep Pads) 70 % pads USE 1 PER DAY atorvastatin (LIPITOR) 80 mg, Oral, Nightly Blood Glucose Monitoring Suppl (True Metrix Meter) w/Device kit USE 1 DAILY Brilinta 90 mg, 2 times daily busPIRone (BUSPAR) 7.5 mg, Oral, 2 times daily carvedilol (COREG) 6.25 mg, Oral, 2 times daily with meals CVS Aspirin Low Dose 81 mg, Daily CVS Lancets Micro Thin 33G misc USE 1 A DAY dapagliflozin (FARXIGA) 10 mg, Oral, Daily DULoxetine (CYMBALTA) 30 mg, Oral, Daily, Do not crush or chew. isosorbide mononitrate ER (IMDUR) 30 mg, Daily levothyroxine (SYNTHROID, LEVOXYL) 25 mcg, Oral, Daily before breakfast metFORMIN (GLUCOPHAGE) 1,000 mg, Oral, 2 times daily with meals nitroglycerin (NITROSTAT) 0.4 mg, Sublingual, Every 5 min PRN Ozempic (1 MG/DOSE) 1 mg, Subcutaneous, Weekly sacubitril-valsartan (Entresto) 97-103 MG tablet 1 tablet, 2 times daily spironolactone (ALDACTONE) 25 mg, Daily tiZANidine (ZANAFLEX) 4 mg, Oral, Nightly PRN True Metrix Blood Glucose Test test strip USE 1 DAILY ALLERGIES: No Known Allergies REVIEW OF SYMPTOMS: Review of Systems Constitutional: Positive for fatigue. Negative for appetite change, chills, fever, irritability, weight gain and weight loss. HENT: Negative for congestion, ear pain and sore throat. Eyes: Negative for blurred vision, pain, discharge, redness and visual disturbance. Respiratory: Negative for cough, shortness of breath and wheezing. Cardiovascular: Negative for chest pain, palpitations, orthopnea and leg swelling. Gastrointestinal: Negative for abdominal pain, blood in stool, constipation, diarrhea, nausea and vomiting. Genitourinary: Negative for difficulty urinating, dysuria and frequency. Musculoskeletal: Negative for arthralgias, back pain, joint swelling and myalgias. Skin: Negative for rash and wound. Neurological: Negative for dizziness, tremors, seizures, syncope and headaches. Psychiatric/Behavioral: Positive for depression. Negative for behavioral problems, decreased concentration, self-injury and suicidal ideas. The patient is nervous/anxious. Depression Hematological: Does not bruise/bleed easily. Endocrine: Negative for polydipsia, polyphagia and polyuria. Allergic/Immunologic: Negative for environmental allergies and food allergies. PAST MEDICAL HISTORY Past Medical History: Diagnosis Date Acute heart failure ([facility]) 05/09/2023 Acute hemorrhoid Anxiety 05/09/2023 Aphthous ulcer Cold sore Coronary artery disease involving [place] coronary artery of [place] heart with angina pectoris ([facility]) 05/09/2023 COVID-19 viremia Depression ([facility]) Diastasis recti Essential (primary) hypertension ([facility]) 05/09/2023 Eustachian salpingitis, left Hypertriglyceridemia ([facility]) hypertriglycerides Hypothyroidism (acquired) ([facility]) 05/09/2023 Left ankle swelling Mixed hyperlipidemia ([facility]) 05/09/2023 Obesity with body mass index (BMI) of 30.0 to 39.9 07/11/2023 PIPPA (obstructive sleep apnea) 05/08/2023 Right ovarian cyst Right-sided Pa's palsy Sinusitis, bacterial Toe pain, left Type 2 diabetes mellitus with hyperglycemia, without long-term current use of insulin ([facility]) 05/09/2023 Yeast infection of the vagina 04/29/2023 [...] in her mother. OBJECTIVE: Visit Vitals BP 104/78 (BP Location: Left arm, Patient Position: Sitting, BP Cuff Size: Adult long) Pulse 81 Temp 98.1 F (Temporal) Resp 18 Ht 5' 5 Wt 191 lb SpO2 96% BMI 31.78 kg/m Smoking Status Every Day BSA 1.99 m Physical Exam Vitals and nursing note reviewed. Constitutional: General: She is not in acute distress. Appearance: Normal appearance. She is obese. HENT: Head: Normocephalic and atraumatic. Right Ear: External ear normal. Left Ear: External ear normal. Nose: Nose normal. Mouth/Throat: Mouth: Mucous membranes are moist. Eyes: Extraocular Movements: Extraocular movements intact. Conjunctiva/sclera: Conjunctivae normal. Neck: Vascular: No carotid bruit. Cardiovascular: Rate and Rhythm: Normal rate and regular rhythm. Pulses: Normal pulses. Heart sounds: Normal heart sounds. No murmur heard. Pulmonary: Effort: Pulmonary effort is normal. Breath sounds: Normal breath sounds. No wheezing or rales. Abdominal: General: Bowel sounds are normal. There is no distension. Palpations: Abdomen is soft. There is no mass. Tenderness: There is no abdominal tenderness. Musculoskeletal: General: Normal range of motion. Cervical back: Normal range of motion and neck supple. Right lower leg: No edema. Left lower leg: No edema. Lymphadenopathy: Cervical: No cervical adenopathy. Skin: General: Skin is warm and dry. Capillary Refill: Capillary refill takes 2 to 3 seconds. Findings: No rash. Neurological: General: No focal deficit present. Mental Status: She is alert and oriented to person, place, and time. Comments: Decreased sensation to bilat feet, no ulcers, no callouses Psychiatric: Mood and Affect: Mood normal. Behavior: Behavior normal. Thought Content: Thought content normal. Judgment: Judgment normal. ASSESSMENT AND PLAN: Follow up in about 6 weeks (around 06/08/2024) for Recheck. Problem List Items Addressed This Visit PIPPA (obstructive sleep apnea) Compliant with PAP use Total hours used: 6+ hours use, less fatigue Type 2 diabetes mellitus with hyperglycemia, without long-term current use of insulin ([facility]) - Primary Check blood sugars daily, notify if <70 or >200. Take medications (pills or insulin) as directed. Monitor for s/s of hypoglycemia (sweaty, dizziness, nausea, vomiting, or shakiness). Watch for increase in thirst, urination, or appetite. Inspect feet frequently monitoring for open wounds , and also recommend yearly eye exam. Pt should attempt to remain as physically active as chronic conditions allow, as well as trying to follow a diet low in carbohydrates, and simple sugars. A1c 7.3% Will increase ozempic to 1mg weekly Relevant Medications semaglutide (Ozempic, 1 MG/DOSE,) 4 MG/3ML solution pen-injector Other Relevant Orders POCT glycosylated hemoglobin (Hb A1C) docked device (Completed) Lipid panel Comprehensive metabolic panel Essential (primary) hypertension (CMS/HCC) Please check blood pressure daily and record DASH diet Limit caffeine Take medication as directed Contact office if chest pain, pressure, dizziness, shortness of breath, swelling legs Recommend slow position changes Continue current meds Relevant Orders Comprehensive metabolic panel Hypothyroidism (acquired) ([facility]) Continue with levothyroxine Relevant Orders TSH T4, free Lipid panel Anxiety Stop sertraline Trial duloxetine (may help DN as well) Take medication only as directed. This medication will take approximately 4-6 weeks to become effective. If any suicidal thoughts, thoughts of hurting others, or hallucinations contact the office or proceed to the Emergency Room for mental health evaluation. Medication may cause dry mouth, dizziness, and in some cases worsening in depression symptoms. Please contact the office if these occur. Relevant Medications DULoxetine (Cymbalta) [address] capsule Obesity with body mass index (BMI) of 30.0 to 39.9 Discussed with patient their BMI (actual, verses recommended). We have also discussed lifestyle modifications: attempts to perform physical activity as chronic conditions allow, also to monitor dietary intake: increasing protein/fruits/veggies and lowering carb intake (unless contraindicated). Limit sodas, juices, and sugary drinks. Is currently taking ozempic for DM mgmt. Tobacco user The patient has been advised of the risks of continued smoking: stroke, OH, all forms of cancer, lung disease, and . Options for quitting smoking include: cold turkey, hypnosis, acupuncture, nicotine replacement meds (gum, lozenges, and patches), Buproprion, and Varenicline. At this time pt is encouraged to evaluate their goals for wanting to quit smoking, and reach out to provider when ready to start this process Systolic heart failure ([facility]) Continue with cardiology Is on Entresto, as well as diuretic and b raina therapy Recommend daily weights, notify cardiology if more than 3 pound gain in 24 hours Recommend low sodium diet as well Diabetic polyneuropathy associated with type 2 diabetes mellitus ([facility]) Will trial duloxetine Fu in 6 weeks for recheck Associated Problem(s): Anxiety Stop sertraline Trial duloxetine (may help DN as well) Take medication only as directed. This medication will take approximately 4-6 weeks to become effective. If any suicidal thoughts, thoughts of hurting others, or hallucinations contact the office or proceed to the Emergency Room for mental health evaluation. Medication may cause dry mouth, dizziness, and in some cases worsening in depression symptoms. Please contact the office if these occur. Associated Problem(s): Tobacco user The patient has been advised of the risks of continued smoking: stroke, [place], all forms of cancer, lung disease, and . Options for quitting smoking include: cold turkey, hypnosis, acupuncture, nicotine replacement meds (gum, lozenges, and patches), Buproprion, and Varenicline. At this time pt is encouraged to evaluate their goals for wanting to quit smoking, and reach out to provider when ready to start this process Associated Problem(s): Hypothyroidism (acquired) (CMS/[facility]) Continue with levothyroxine Associated Problem(s): Obesity with body mass index (BMI) of 30.0 to 39.9 Discussed with patient their BMI (actual, verses recommended). We have also discussed lifestyle modifications: attempts to perform physical activity as chronic conditions allow, also to monitor dietary intake: increasing protein/fruits/veggies and lowering carb intake (unless contraindicated). Limit sodas, juices, and sugary drinks. Is currently taking ozempic for DM mgmt. Associated Problem(s): Type 2 diabetes mellitus with hyperglycemia, without long-term current use of insulin (CMS/[facility]) Check blood sugars daily, notify if <70 or >200. Take medications (pills or insulin) as directed. Monitor for s/s of hypoglycemia (sweaty, dizziness, nausea, vomiting, or shakiness). Watch for increase in thirst, urination, or appetite. Inspect feet frequently monitoring for open wounds , and also recommend yearly eye exam. Pt should attempt to remain as physically active as chronic conditions allow, as well as trying to follow a diet low in carbohydrates, and simple sugars. A1c 7.3% Will increase ozempic to 1mg weekly Associated Problem(s): Essential (primary) hypertension (CMS/HCC) Please check blood pressure daily and record DASH diet Limit caffeine Take medication as directed Contact office if chest pain, pressure, dizziness, shortness of breath, swelling legs Recommend slow position changes Continue current meds Associated Problem(s): Systolic heart failure (CMS/HCC) Continue with cardiology Is on Entresto, as well as diuretic and b raina therapy Recommend daily weights, notify cardiology if more than 3 pound gain in 24 hours Recommend low sodium diet as well Associated Problem(s): PIPPA (obstructive sleep apnea) Compliant with PAP use Total hours used: 6+ hours use, less fatigue documented in this encounter [facility] 04-27-2024 Instructions Nelida Ambrosio NP - 04/27/2024 11:45 AM EST We will increase ozempic to 1mg every 7 days, discontinue the 0.5mg dose Stop sertraline, and we will trial duloxetine 30mg daily (depression, anxiety, as well as diabetic nerve pain) documented in this encounter [facility] 07-24-2023 Evaluation note Authored July 24, 2023 1:06pm Ms Mitchell is a a 47 yr old fe male, seen at [facility] on 04/10/2023 for NSTEMI. Cath and PCI to the LAD was successful. Unsuccessful attempt to cross the RCA lesion. HX of DM type 2, HTN, PIPPA, hyperlipidemia. ECHO 04/10/2023: EF of 25-30% with grade 1 diastolic dysfunction. Trace MR, trace TR. [facility] 04/11/2023 consistent with severe two-vessel CAD-70% proximal LAD and 100% proximal RCA. Status post PCI to proximal LAD with 3.5 x 15 mm Garth NILSA. 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 Assessment: 2v CAD s/p PCI to LAD (presented with NSTEMI) Ischemic cardiomyopathy/Systolic heart failure. Euvolemic Hypertension Hyperlipidemia Diabetes type 2 Active tobacco use Family history of premature CAD Morbid obesity PIPPA not compliant with CPAP Plan: - [facility] 04/11/2023 consistent with severe two-vessel CAD-70% proximal LAD and 100% proximal RCA. Status post PCI to proximal LAD with 3.5 x 15 mm Garth NILSA. 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 - Repeat ECHO 07/12/23 showed improved EF [...] months. [facility] Work Phone: 1(675) 927-953702-08-2024 History of Present illness Narrative* Nelida Ambrosio [...] instructions are 1/2 pill daily, lot # [id number] * ZANE GRIGGS - 07/11/2023 3:40 PM EST Echo tomorrow [place] Pilot on 07/24 Sleep study 07/22 Pt asking [...] no compliance problems. Hypertensive end-organ damage includes CAD/OH, heart failure andleft ventricular hypertrophy. Diabetes She [...] Medical History: Diagnosis Date Acute heart failure ([facility]) 05/09/2023 Acute hemorrhoid Anxiety 05/09/2023 Aphthous ulcer Cold sore Coronary artery disease involving mesa grande coronary artery of mesa grande heart with angina pectoris ([facility]) 05/09/2023 COVID-19 viremia Depression ([facility]) Diastasis recti Essential (primary) hypertension ([facility]) 05/09/2023 Eustachian salpingitis, left Hypertriglyceridemia ([facility]) hypertriglycerides Hypothyroidism (acquired) ([facility]) 05/09/2023 Left ankle swelling Mixed hyperlipidemia ([facility]) 05/09/2023 Obesity with body mass index (BMI) of 30.0 to 39.9 07/11/2023 PIPPA (obstructive sleep apnea) 05/08/2023 Right ovarian cyst Right-sided Pa's palsy Sinusitis, bacterial Toe pain, left Type 2 diabetes mellitus with hyperglycemia, without long-term current use of insulin ([facility]) 05/09/2023 Yeast infection of the vagina [...] instructions are 1/2 pill daily, lot # [id number] Essential (primary) hypertension (CMS/HCC) - Primary Acute heart failure (CMS/HCC) Continue with cardiology Has echo tomorrow Anxiety Doing ok on sertraline, we will increase buspirone to 7.5mg BID Fu in 2 months Relevant Medications busPIRone (Buspar) 7.5 MG tablet Obesity with body mass index (BMI) of 30.0 to 39.9 Tobacco user [id number] Evaluation note* Encounter Date Diagnosis Assessment Notes Treatment Notes Treatment Clinical Notes May, Ischemic cardiomyopathy (ICD-10 - I25.5) [facility] Other 11-29-2023 Evaluation note* Encounter Date Diagnosis Assessment Notes Treatment Notes Treatment Clinical Notes Apr, History of non-ST elevation myocardial infarction (NSTEMI) (ICD-10 - I25.2) Ms Mitchell is a a 47 yr old female, seen at [facility] on 04/10/2023 for NSTEMI. Cath and PCI to the LAD was successful. Unsuccessful attempt to cross the RCA lesion. HX of DM type 2, HTN, PIPPA, hyperlipidemia. ECHO 04/10/2023: EF of 25-30% with grade 1 diastolic dysfunction. Trace MR, trace TR. [facility] 04/11/2023 consistent with severe two-vessel CAD-70% proximal LAD and 100% proximal RCA. Status post PCI to proximal LAD with 3.5 x 15 mm Garth NILSA. 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 Assessment: 2v CAD s/p PCI to LAD (presented with NSTEMI) Systolic heart failure. Euvolemic Hypertension Hyperlipidemia Diabetes type 2 Active tobacco use Family history of premature CAD Morbid obesity PIPPA not compliant with CPAP Plan: - [facility] 04/11/2023 consistent with severe two-vessel CAD-70% proximal LAD and 100% proximal RCA. Status post PCI to proximal LAD with 3.5 x 15 mm [place] NILSA. 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 -Continue DAPT-aspirin 81 mg daily plus Brilinta [...] I25.5) Apr, Post PTCA (ICD-10 - Z98.61) [facility] Other 11-10-2023 Hospital Discharge instructions Additional Instructions [...] doctor or pharmacist, without first calling the journeyman apprentice electricians who implanted the stent. If you require [...] weight lifting, stair steppers, etc. until the journeyman apprentice electricians approves these activities. Check with the journeyman apprentice electricians on your first follow-up visit. CALL YOUR PHYSICIAN at [phone]: -If bleeding should occur from the catheter insertion site- apply pressure to the site then immediately call us. -Report any fever, redness, drainage, increased swelling, or firmness at the catheter insertion site. Some bruising or slight swelling may be present at the time of discharge. -Should arm or leg become cold, numb, white, or blue, contact the journeyman apprentice electricians immediately. -IF you should experience episodes of [...] is recommended. Please call Central Scheduling at [phone] to schedule your appointment.] The attending journeyman apprentice electricians or [facility] nurse clinician should provide you with specific instructions regarding activity, diet, medications, and further follow up for you. Follow the medication instructions provided on your discharge. If the dosages and instructions on this sheet differ from the dosage and instructions on the bottle, follow the instructions on the bottle. [facility] is not responsible for incorrect prescription information provided by the patient during their visit. Do not stop your medications without consulting your health care provider. Please take the list with you to your next doctor's appointment.[facility] Work Phone: 1(882) 372-758411-10-2023 Discharge summary Author Florentino Kenyon [facility] April 12, 2023 9:01am Note Date/Time April 12, 2023 9:01am [facility] [address] [place] [address] Discharge Summary Signed Patient: Lorraine Mitchell MR#: [id number] : 1975 Acct:[id number] Age/Sex: 47 / F Adm Date: 3 Loc: Room: [address] [place] [address]: Florentino Kenyon MD Copies to: [...] doctor or pharmacist, without first calling the journeyman apprentice electricians who implanted the stent. If you require [...] weight lifting, stair steppers, etc. until the journeyman apprentice electricians approves these activities. Check with the journeyman apprentice electricians on your first follow-up visit. CALL YOUR PHYSICIAN at [phone]: -If bleeding should occur from the catheter insertion site- apply pressure to the site then immediately call us. -Report any fever, redness, drainage, increased swelling, or firmness at the catheter insertion site. Some bruising or slight swelling may be present at thetime of discharge. -Should arm or leg become cold, numb, white, or blue, contact the journeyman apprentice electricians immediately. -IF you should experience episodes of [...] is recommended. Please call Central Scheduling at [phone] to schedule your appointment.] The attending journeyman apprentice electricians or [facility] nurse clinician should provide you with specific instructions regarding activity, diet, medications, and further follow up for you. Follow the medication instructions provided on your discharge. If the dosages and instructions on this sheet differ from the dosage and instructions on the bottle, follow the instructions on the bottle. [facility] is not responsible for incorrect prescription information [...] signed by Florentino Kenyon MD> 04/12/23 0901 [facility] Work Phone: 1(268) 649-559311-09-2023 Consult note Author W Diego [facility] April 11, 2023 6:12pm Note Date/Time April 11, 2023 6 :12pm [facility] [address] [place] [address] Cardiology Consult Note Signed Patient: Lorraine Mitchell MR#: [id number] : 1975 Acct:[id number] Age/Sex: 47 / F Adm Date: 3 Loc: Room: [address] [place] [address] Type: ADM IN Attending Dr: Florentino Kenyon MD Copies to: MD Shilpa Skinner MD W Scott Sheldon, DO~ Cardiology HPI History of Present Illness Consult Date: 04/11/23 Reason for Consult: Non-ST elevation OH, two-vessel ASHD, ischemic cardiomyopathy HPI: Ms. Mitchell [...] alsohad premature CAD. Patient initially presented to [facility] where troponin was positive: 248-256. BNP elevated at 1327. EKG showed sinus tachycardia. Echo today shows EF of 25-30% with grade 1 diastolic dysfunction. Trace MR, trace TR. Troponin trend on arrival [phone] Catheterization was reviewed with primary journeyman apprentice electricians, there is appears to be athrombotic occlusion of the proximal dominant RCA, and moderate 70% disease of the proximal LAD. We will proceed with PCI of the LAD, and attempted crossing of what appears to be a thrombotic occlusion of the RCA. [facility] Medical History (Updated 04/10/23 @ 11:06 [...] Lymph # (Auto) 3.2 3.0 (1.00-4.8) x10E3/uL Hardeman # (Auto) 0.4 0.5 (0.0-0.8) x10E3/uL Eos [...] <Electronically signed by Magali Cortez DO> 04/11/23 0759 [facility] Work Phone: 1(643) 740-192411-09-2023 Progress note Author Stephanie Sweet [facility] April 11, 2023 1:12pm Note Date/Time April 11, 2023 1 :09pm [facility] [address] [place] [address] Cardiology Progress Note Signed Patient: Lorraine Mitchell MR#: [id number] : 1975 Acct:[id number] Age/Sex: 47 / F Adm Date: 3 Loc: Room: [address] [place] [address] Type: ADM IN Attending Dr: Florentino Kenyon [...] alsohad premature CAD. Patient initially presented to [facility] where troponin was positive: 248-256. BNP elevated at 1327. EKG showed sinus tachycardia. Echo today shows EF of 25-30% with grade 1 diastolic dysfunction. Trace MR, trace TR. Interim history 04/11/2023: Troponin continues to uptrend 899-->2200. Reports minimal chest pain today. Heparin drip restarted last night. [facility] today Exam Physical Exam Vital Signs: [...] MPV Neut % (Auto) Lymph % (Auto) Hardeman % (Auto) Eos % (Auto) Baso % (Auto) Nucleat RBC Rel Count Neut # (Auto) Lymph # (Auto) Hardeman # (Auto) Eos # (Auto) Baso # [...] % (Auto) 56.6 Lymph % (Auto) 36.2 Hardeman % (Auto) 4.6 Eos % (Auto) 1.2 Baso % (Auto) 1.4 Nucleat RBC Rel Count 0.1 Neut # (Auto) 5.0 Lymph # (Auto) 3.2 Hardeman # (Auto) 0.4 Eos # (Auto) 0.1 [...] MPV Neut % (Auto) Lymph % (Auto) Hardeman % (Auto) Eos % (Auto) Baso % (Auto) Nucleat RBC Rel Count Neut # (Auto) Lymph # (Auto) Hardeman # (Auto) Eos # (Auto) Baso # [...] % (Auto) 59.4 Lymph % (Auto) 33.4 Hardeman % (Auto) 5.8 Eos % (Auto) 0.9 Baso % (Auto) 0.5 Nucleat RBC Rel Count 0.1 Neut # (Auto) 5.3 Lymph # (Auto) 3.0 Hardeman # (Auto) 0.5 Eos # (Auto) 0.1 [...] MPV Neut % (Auto) Lymph % (Auto) Hardeman % (Auto) Eos % (Auto) Baso % (Auto) Nucleat RBC Rel Count Neut # (Auto) Lymph # (Auto) Hardeman # (Auto) Eos # (Auto) Baso # [...] alsohad premature CAD. Patient initially presented to [facility] where troponin was positive: 248-256. BNP elevated at 1327. EKG showed sinus tachycardia. Echo today shows EF of 25-30% with grade 1 diastolic dysfunction. Trace MR, trace TR. Troponin trend on arrival [phone] Assessment: NSTEMI Systolic heart failure. Euvolemic Hypertension [...] signed by Stephanie Sweet MD> 04/11/23 1312 [facility] Work Phone: 1([phone]) 186-326711-09-2023 Procedure [facility]11-09-2023 Procedure [facility]11-09-2023 Progress note Author Florentino Kenyon [facility] April 11, 2023 9:50am Note Date/Time April 11, 2023 9 :48am [facility] [address] [place] [address] Hospitalist Progress Note Signed Patient: Lorraine Mitchell MR#: [id number] : 1975 Acct:[id number] Age/Sex: 47 / F Adm Date: 3 Loc: Room: [address] [place] [address] Type: ADM IN Attending Dr: Florentino Kenyon [...] signed by Florentino Kenyon MD> 04/11/23 0950 [facility] Work Phone: [phone] 391-291311-08-2023 Consult note Author Stephanie Sweet [facility] April 10, 2023 8:00pm Note Date/Time April 10, 2023 7 :53pm [facility] [address] [place] [address] Cardiology Consult Note Signed Patient: Lorraine Mitchell MR#: [id number] : 1975 Acct:[id number] Age/Sex: 47 / F Adm Date: 3 Loc: 4P Room: [address] [place] [address] Type: ADM IN Attending Dr: Florentino Kenyon [...] alsohad premature CAD. Patient initially presented to [facility] where troponin was positive: 248-256. BNP elevated at 1327. EKG showed sinus tachycardia. Echo today shows EF of 25-30% with grade 1 diastolic dysfunction. Trace MR, trace TR. Review of Systems Review of Systems All other systems reviewed & are negative unless noted below or in HPI [facility] Medical History (Updated 04/10/23 @ 11:06 [...] alsohad premature CAD. Patient initially presented to [facility] where troponin was positive: 248-256. BNP elevated at 1327. EKG showed sinus tachycardia. Echo today shows EF of 25-30% with grade 1 diastolic dysfunction. Trace MR, trace TR. Troponin trend on arrival [phone] Assessment: NSTEMI Systolic heart failure. Euvolemic Hypertension Hyperlipidemia Diabetes type 2 Active tobacco use Family history of premature CAD Morbid obesity PIPPA not compliant with CPAP Recommendations: -Start heparin drip for ACS. -We will plan for C tomorrow to evaluate coronaries. N.p.o. past midnight -Continue aspirin, statin, losartan 50 mg daily. Will start spironolactone and SGLT2 inhibitor after LHC. - She will need LifeVest on discharge - Will follow. Documented By: Stephanie Sweet MD 04/10/231751 Signed By: <Electronically signed by Stephanie Sweet MD> 04/10/231999 [facility] Work Phone: 1(379) 814-364211-08-2023 Evaluation note* Author Stephanie Sweet [facility] Authored July 24, 2023 10:10am Ms Mitchell is a a 47 yr old fe male, seen at [facility] on 04/10/2023 for NSTEMI. Cath and PCI to the LAD was successful. Unsuccessful attempt to cross the RCA lesion. HX of DM type 2, HTN, PIPPA, hyperlipidemia. ECHO 04/10/2023: EF of 25-30% with grade 1 diastolic dysfunction. Trace MR, trace TR. C 04/11/2023 consistent with severe two-vessel CAD-70% proximal LAD and 100% proximal RCA. Status post PCI to proximal LAD with 3.5 x 15 mm [place] NILSA. 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 Assessment: 2v CAD s/p PCI to LAD (presented with NSTEMI) Ischemic cardiomyopathy/Systolic heart failure. Euvolemic Hypertension Hyperlipidemia Diabetes type 2 Active tobacco use Family history of premature CAD Morbid obesity PIPPA not compliant with CPAP Plan: - [facility] 04/11/2023 consistent with severe two-vessel CAD-70% proximal LAD and 100% proximal RCA. Status post PCI to proximal LAD with 3.5 x 15 mm [place]arth NILSA. 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 - Repeat ECHO 07/12/23 showed improved EF [...] months. [facility] Work Phone: 1([phone]) 252-140111-08-2023 History and physical note Author Florentino Kenyon [facility] April 10, 2023 11:10am Note Date/Time April 10, 2023 1 1:10am [facility] [address] [place] [address] Hospitalist H&P Signed Patient: Lorraine Mitchell MR#: [id number] : 1975 Acct:[id number] Age/Sex: 47 / F Adm Date: 3 Loc: 4 Room: [address] [place] [address] Type: ADM IN Attending Dr: Florentino Kenyon [...] negative unless noted below or in HPI [facility] Medical History (Updated 04/10/23 @ 11:06 [...] signed by Florentino Kenyon MD> 04/10/23 1110 [facility] Work Phone: Evaluation note* Diagnosis Onset Date Resolution Status Diabetes type 2, controlled acute Hyperlipidemia acute Hypertension acute Nicotine abuse acute Non-STEMI (non-ST elevated myocardial infarction) acute PIPPA (obstructive sleep apnea) acute [facility] Work Phone: Evaluation noteNo InformationNort [employer] Other Evaluation noteNo assessment information available [facility] Work Phone: Evaluation note* Diagnosis Type 2 diabetes mellitus with hyperglycemia, without long-term current use of insulin ([facility])- Primary Obesity with body mass index (BMI) of 30.0 to 39.9 Tobacco user Tobacco use disorder Essential (primary) hypertension (CMS/HCC) Unspecified essential hypertension Acute heart failure, unspecified heart failure type (CMS/HCC) Anxiety Anxiety state, unspecified documented in this encounter [facility] HealthcareEvaluation note* Diagnosis Acute heart failure, unspecified heart failure type (CMS/HCC) Essential (primary) hypertension ([facility]/HCC) Unspecified essential hypertension Coronary artery disease involving mesa grande coronary artery of mesa grande heart with angina pectoris (CMS/HCC) Mixed hyperlipidemia ([facility]) Mixed hyperlipidemia documented in this encounter [facility] HealthcareEvaluation note* Diagnosis Onset Date Resolution Status Diabetes type 2, controlled acute Hyperlipidemia acute Hypertension acute Hypothyroidism, unspecified acute Ischemic cardiomyopathy acut e Nicotine abuse acute Non-STEMI (non-ST elevated myocardial infarction) acute PIPPA (obstructive sleep apnea) acute Systolic heart failure acute Diabetes type 2, controlled acute Hyperlipidemia acute Hypertension acute Hypothyroidism, unspecified acute Ischemic cardiomyopathy acut e Nicotine abuse acute Non-STEMI (non-ST elevated myocardial infarction) acute PIPPA (obstructive sleep apnea) acute Systolic heart failure acute [facility] Work Phone: Evaluation note* Diagnosis PIPPA (obstructive sleep apnea)- Primary Obstructive sleep apnea (adult) (pediatric) Coronary artery disease involving mesa grande coronary artery of mesa grande heart with angina pectoris ([facility]/HCC)- Primary Essential (primary) hypertension ([facility]) Unspecified essential hypertension Type 2 diabetes mellitus with hyperglycemia, without long-term current use of insulin ([facility]) Anxiety Anxiety state, unspecified Anxiety disorder, unspecified Anxiety state ([facility]) Anxiety state, unspecified Acute heart failure, unspecified heart failure type (CMS/HCC) Type 2 diabetes mellitus with hyperglycemia, without long-term current use of insulin ([facility])- Primary Obesity with body mass index (BMI) of 30.0 to 39.9 Tobacco user Tobacco use disorder Essential (primary) hypertension (CMS/HCC) Unspecified essential hypertension Acute heart failure, unspecified heart failure type (CMS/[facility]) Anxiety Anxiety state, unspecified Coronary artery disease involving mesa grande coronary artery of mesa grande heart with angina pectoris (CMS/[facility]) Type 2 diabetes mellitus with hyperglycemia, without long-term current use of insulin ([facility]/HCC)- Primary Colon cancer screening Special screening for malignant neoplasms, colon Obesity with body mass index (BMI) of 30.0 to 39.9 Systolic heart failure, unspecified HF chronicity (CMS/HCC) Essential (primary) hypertension (CMS/HCC) Unspecified essential hypertension Coronary artery disease involving mesa grande coronary artery of mesa grande heart with angina pectoris (CMS/HCC) Tobacco user Tobacco use disorder Type 2 diabetes mellitus with hyperglycemia, without long-term current use of insulin (CMS/[facility])- Primary Essential (primary) hypertension (CMS/HCC) Unspecified essential hypertension Acute cystitis without hematuria Herpes zoster without complication- Primary Other hemorrhoids- Primary Nausea and vomiting, unspecified vomiting type documented in this encounter [facility]* Diagnosis PIPPA (obstructive sleep apnea)- Primary Obstructive sleep apnea (adult) (pediatric) Coronary artery disease involving mesa grande coronary artery of mesa grande heart with angina pectoris (CMS/HCC)- Primary Essential (primary) hypertension (CMS/HCC) Unspecified essential hypertension Type 2 diabetes mellitus with hyperglycemia, without long-term current use of insulin ([facility]) Anxiety Anxiety state, unspecified Anxiety disorder, unspecified Anxiety state ([facility]) Anxiety state, unspecified Acute heart failure, unspecified heart failure type (CMS/HCC) Type 2 diabetes mellitus with hyperglycemia, without long-term current use of insulin ([facility])- Primary Obesity with body mass index (BMI) of 30.0 to 39.9 Tobacco user Tobacco use disorder Essential (primary) hypertension (CMS/HCC) Unspecified essential hypertension Acute heart failure, unspecified heart failure type (CMS/[facility]) Anxiety Anxiety state, unspecified Coronary artery disease involving mesa grande coronary artery of mesa grande heart with angina pectoris (CMS/HCC) Type 2 diabetes mellitus with hyperglycemia, without long-term current use of insulin ([facility])- Primary Colon cancer screening Special screening for malignant neoplasms, colon Obesity with body mass index (BMI) of 30.0 to 39.9 Systolic heart failure, unspecified HF chronicity (CMS/HCC) Essential (primary) hypertension (CMS/HCC) Unspecified essential hypertension Coronary artery disease involving mesa grande coronary artery of mesa grande heart with angina pectoris (CMS/HCC) Tobacco user Tobacco use disorder Type 2 diabetes mellitus with hyperglycemia, without long-term current use of insulin ([facility])- Primary Essential (primary) hypertension (CMS/HCC) Unspecified essential hypertension Acute cystitis without hematuria Herpes zoster without complication- Primary Type 2 diabetes mellitus with hyperglycemia, without long-term current use of insulin ([facility]) documented in this encounter [facility] HealthcareEvaluation note* Diagnosis PIPPA (obstructive sleep apnea)- Primary Obstructive sleep apnea (adult) (pediatric) Coronary artery disease involving mesa grande coronary artery of mesa grande heart with angina pectoris ([facility])- Primary Essential (primary) hypertension ([facility]) Unspecified essential hypertension Type 2 diabetes mellitus with hyperglycemia, without long-term current use of insulin ([facility]) Anxiety Anxiety state, unspecified Anxiety disorder, unspecified Anxiety state ([facility]) Anxiety state, unspecified Acute heart failure, unspecified heart failure type ([facility]) Type 2 diabetes mellitus with hyperglycemia, without long-term current use of insulin ([facility])- Primary Obesity with body mass index (BMI) of 30.0 to 39.9 Tobacco user Tobacco use disorder Essential (primary) hypertension ([facility]) Unspecified essential hypertension Acute heart failure, unspecified heart failure type ([facility]) Anxiety Anxiety state, unspecified Coronary artery disease involving mes[place] coronary artery of [place] heart with angina pectoris ([facility]) Type 2 diabetes mellitus with hyperglycemia, without long-term current use of insulin ([facility])- Primary Colon cancer screening Special screening for malignant neoplasms, colon Obesity with body mass index (BMI) of 30.0 to 39.9 Systolic heart failure, unspecified HF chronicity (CMS/HCC) Essential (primary) hypertension ([facility]) Unspecified essential hypertension Coronary artery disease involving [place] coronary artery of [place] heart with angina pectoris ([facility]) Tobacco user Tobacco use disorder Type 2 diabetes mellitus with hyperglycemia, without long-term current use of insulin ([facility])- Primary Essential (primary) hypertension ([facility]/HCC) Unspecified essential hypertension Acute cystitis without hematuria Herpes zoster without complication- Primary Type 2 diabetes mellitus with hyperglycemia, without long-term current use of insulin ([facility])- Primary PIPPA (obstructive sleep apnea) Obstructive sleep apnea (adult) (pediatric) Systolic heart failure, unspecified HF chronicity (CMS/HCC) Essential (primary) hypertension ([facility]) Unspecified essential hypertension Obesity with body mass index (BMI) of 30.0 to 39.9 Hypothyroidism (acquired) ([facility]) Unspecified hypothyroidism Tobacco user Tobacco use disorder Anxiety Anxiety state, unspecified Diabetic polyneuropathy associated with type 2 diabetes mellitus (CMS/HCC) documented in this encounter [facility] [...] History cath/PCI 04/2023 Hospitalization History NSTEMI 04/2023 [place] Other Progress note Author Stephanie Sweet [facility] April 12, 2023 2:38pm Note Date/Time April 12, 2023 2:30pm [facility] [address] [place] [id number] Cardiology Progress Note Signed Patient: Lorraine Mitchell MR#: [id number] : 1975 Acct:[id number] Age/Sex: 47 / F Adm Date: 3 Loc: Room: [address] [place] [address] Type: ADM IN Attending Dr: Florentino Kenyon [...] alsohad premature CAD. Patient initially presented to [facility] where troponin was positive: 248-256. BNP [...] alsohad premature CAD. Patient initially presented to [facility] where troponin was positive: 248-256. BNP elevated at 1327. EKG showed sinus tachycardia. Echo today shows EF of 25-30% with grade 1 diastolic dysfunction. Trace MR, trace TR. Troponin trend on arrival [phone] Assessment: NSTEMI Systolic heart failure. Euvolemic Hypertension Hyperlipidemia Diabetes type 2 Active tobacco use Family history of premature CAD Morbid obesity PIPPA not compliant with CPAP Recommendations: - [facility] 04/11/2023 consistent with severe two-vessel CAD-70% proximal LAD and 100% proximal RCA. Status post PCI to proximal LAD with 3.5 x 15 mm Garth NILSA. 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 Appreciate Dr Cortez's assistance in this case. [...] signed by Stephanie Sweet MD> 04/12/23 1438 [facility] Work Phone: Reason for visit NarrativeCARDIAC REHAB REFERRAL UPDATEWet[place] SoMoLend Other Summary Purpose Family History No Family [...] coronary artery bypass Unknown brother Hypertension Unknown Relationship Condition Age at Onset Recorded Date/T liam sister Malignant neoplasm of pancreas Unknown Unknown father Malignant neoplasm of colon Unknown Myocardial infarction Unknown mother Cerebrovascular accident (CVA) Unknown Diabetes mellitus Unknown Hypertension Unknown brother Status post four ves jazmine coronary artery bypass Unknown brother Hypertension Unknown Advance Directives No Advanced Directives Records Found Advance Directive Response Recorded Date/ Time Advance Directives No November 15 12:56pm Advance Directive Response Recorded Date/ Time Advance Directives No November 15 1:56pm Advance Directive Response Recorded Date/ Time Advance Directives No October 24 9:54am Chief Complaint and Reason for Visit Chief Complaint Non Stemi Reason for Visit Diabetes type 2, con trolled Hyperlipidemia Hypertension Nicotine abuse Non-STEMI (non-ST elevated myocardial infarction) PIPPA (obstructive sleep apnea) Chief Complaint [facility]: 2wks i25.2 I25.5 Chief Complaint [facility]: 2wks i25.2 I25.5 3 month follow up Chief Complaint i25.2 I25.5 3 month follow up Two month f/u Chief Complaint 3 month f/u 2 months Reason for Visit Diabetes type 2, con trolled Hyperlipidemia Hypertension Hypothyroidism, unspecified Ischemic cardiomyopathy Nicotine abuse Non-STEMI (non-ST elevated myocardial infarction) PIPPA (obstructive sleep apnea) Systolic heart failure Diabetes type 2, controlled Hyperlipidemia Hypertension Hypothyroidism, unspecified Ischemic cardiomyopathy Nicotine abuse Non-STEMI (non-ST elevated myocardial infarction) PIPPA (obstructive sleep apnea) Systolic heart failure Reason for Referral Reason Cardiac rehab Diagnosis 1 Ischemic cardiomyopa thy (I25.5) Diagnosis 2 Post PTCA (Z98.61) Diagnosis 3 History of non-ST el evation myocardial infarction (NSTEMI) (I25.2) Referral Organization [facility] Cardiology Referring Provider First Name Stephanie Referring Provider Last Name Kee Referring Provider Specialty Cardiovascu lar Disease Referred Organization [facility] Referred Address [address] [place], [place],[address] Referred Provider Specialty Cardiology Referral Priority Routine General Notes Cecilia Acuña 02:15:12 PM >received today, attachments made, waiting for notes to be locked Clinical Notes central scheduling f: [phone] Additional Source Comments INFORMATION SOURCE (unrecogn ized section and content) DATE CREATED [facility] DATE CREATED AUTHOR AUTHOR'S MARIE ATION 01/08/2022 [facility] [facility] DATE CREATED AUTHOR AUTHOR'S ORGANIZ ATION 04/27/2024 [facility] DATE CREATED AUTHOR AUTHOR'S ORGANIZ ATION 04/29/2024 [facility] EPIC Care Teams (unrecognized sec tion and content) Team Status: Active Member Role Status Dates Shilpa Lewis MD Primary Care Provider Active Team Status: Inactive Member Role Status Dates Shilpa Lewis MD Primary Care Provider Active Florentino Kenyon MD Admit Provider, Attending Provider A ctive Deli/Bakery Associate Relationship Specialty Start Date End Date Thom Weinberg MD [address] [place] [phone] PCP - General Family Medicine 05/20/23 Nelida Ambrosio NP [address] [place] [phone] Nurse Practitioner Family Medicine 04/19/23 Team Status: [...] July 12, 2023 End: July 12, 2023 Deli/Bakery Associate Relationship Specialty Start Date End Date Thom Weinberg MD [address] [place] [phone] PCP - General Family Medicine 05/20/23 Nelida Ambrosio NP [address] [place] [phone] Nurse Practitioner Family Medicine 04/19/23 Deli/Bakery Associate Relationship Specialty Start Date End Date Thom Weinberg MD [address] [place] [phone] PCP - General Family Medicine 05/20/23 Nelida Ambrosio, DANICA [address] [place] [phone] Nurse Practitioner Family Medicine 04/19/23 Team Status: [...] September 18, 2023 End: September 18, 2023 Deli/Bakery Associate Relationship Specialty Start Date End Date Thom Weinberg MD [address] [place] [phone] PCP - General Family Medicine 05/20/23 Nelida Ambrosio, DANICA [address] [place] [phone] Nurse Practitioner Family Medicine 04/19/23 Airam Johnson DO [address] [place] [address] Referring Physician Neurology 07/31/23 Team Status: Active Member Role Status Dates Stephanie Sweet MD Co Pilot Active Shilpa Lewis MD Primary Care Provider Active Team Status: Inactive Member Role Status Dates Shilpa Lewis MD Primary Care Provider Active Start: December 25, 2023 End: December 25, 2023 Stephanie Sweet MD Attending Provider Active Sta rt: December 25, 2023 End: December 25, 2023 Team Status: Inactive Member Role Status Dates Shilpa Lewis MD Primary Care Provider Active Start: March 18, 2024 End: March 18, 2024 Stephanie Sweet MD Attending Provider Active Sta rt: March 18, 2024 End: March 18, 2024 Deli/Bakery Associate Relationship Specialty Start Date End Date Thom Weinberg MD [address] [place] [phone] PCP - General Family Medicine 05/20/23 Nelida Ambrosio NP [address] [place] [phone] Nurse Practitioner Family Medicine 04/19/23 Airam Johnson DO [address] [place] [address] Referring Physician Neurology 07/31/23 Deli/Bakery Associate Relationship Specialty Start Date End Date Thom Weinberg MD [address] [place] [phone] PCP - General Family Medicine 05/20/23 Nelida Ambrosio NP [address] [place] [phone] Nurse Practitioner Family Medicine 04/19/23 Airam Johnson DO [address] [place] [address] Referring Physician Neurology 07/31/23 Deli/Bakery Associate Relationship Specialty Start Date End Date Thom Weinberg MD [address] [place] [phone] PCP - General Family Medicine 05/20/23 Nelida Ambrosio NP [address] [place] [phone] Nurse Practitioner Family Medicine 04/19/23 Airam Johnson DO [address] [place] [phone] Referring Physician Neurology 07/31/23 Deli/Bakery Associate Relationship Specialty Start Date End Date Thom Weinberg MD [address] [place] [phone] PCP - General Family Medicine 05/20/23 Nelida Ambrosio NP [address] [place] [address] Nurse Practitioner [facility] 04/19/23 Airam Johnson DO [address] [place] [phone] Referring Physician Neurology 07/31/23 REASON FOR VISIT (unrecogniz ed section and content) Reason Comments Med Refill Goals (unrecognized section and content) Goals may [...] BE BASED ON THE PRIMARY CLINICAL RECORDS. [employer] [facility] provides no warranty or guarantee of the accuracy or completeness of information in this document.
[2024-05-01 10:45] LABS: Alanine Aminotransferase 30 U/L (14-59); Albumin Globulin Ratio 0.9; Albumin Level 3.5 g/dL (3.4-5.0); Alkaline Phosphatase 88 U/L (46-116); Anion Gap 12.3; Aspartate Amino Transferase 10 U/L (15-37); BUN Creatinine Ratio 16.9; Bilirubin Total 0.5 mg/dL (0.2-1.0); Calcium 9.2 mg/dL (8.5-10.1); Carbon Dioxide 28.8 mmol/L (21.0-32.0); Chloride 102 mmol/L (98-107); Chol HDL Ratio 4.1; Cholesterol 156 mg/dL (<=200); Estimated GFR (African America >60 (>=60 mL/min/1.73m^2); Estimated GFR (Non-African Ame >60 (>=60 mL/min/1.73m^2); Globulin 3.7 g/dL; Glucose 152 mg/dL (74-106); HDL Cholesterol 38 mg/dL (40-60); Potassium 4.1 mmol/L (3.5-5.1); Sodium 139 mmol/L (136-145); Thyroid Stimulating Hormone 1.826 uIU/mL (0.358-3.740); Total Protein 7.2 g/dL (6.4-8.2); Triglycerides 272 mg/dL (<=150); VLDL CHOLESTEROL 54.4 mg/dL
[2024-05-01 11:48] LABS: Free T4 0.98 ng/dL (0.76-1.46)
== END 2024-05-01 09:45 | disposition home or self-care (01) ==
LOC: LAB 09:45
PROVIDERS: PCP Nurse Practitioner; Visit Provider Nurse Practitioner
DX: E03.9 Hypothyroidism, unspecified (principal); E11.65 Type 2 diabetes mellitus with hyperglycemia; I10 Essential (primary) hypertension
CPT/HCPCS: 36415; 80053; 80061; 84439; 84443

== ENCOUNTER 2024-07-11 11:18 | Outpatient (OUT) | payer OTHER, SELFPAY ==
--- OUTSIDE RECORDS SUMMARY | 2024-07-11 11:22 | XMS_ITS | CCD ---
Author Organization [facility] Care Team Providers Care Tile Designer Name Role Phone DR SHILPA LEWIS Admitting Unavailable DR SHILPA LEWIS Attending Unavailable DR SHILPA LEWIS Primary Care Unavailable DR SHILPA LEWIS Consulting Unavailable MD Shilpa Lewis Primary Care Provider MD Florentino Kenyon Admit Provider MD Florentino Kenyon Attending Provider Stephanie Sweet Unavailable Daily BUSINESS OFFICE SPECIALIST, Nelida Unavailable Thom Weinberg MD Primary Care Provider MD Shilpa Lewis Primary Care Provider MD Stephanie Sweet Attending Provider MD Shilpa Lewis Primary Care Provider MD Stephanie Sweet Attending Provider [phone] Daily BUSINESS OFFICE SPECIALIST, Nelida Unavailable Thom Weinberg MD Primary Care Provider Airam Johnson DO Unavailable Stephanie Sweet Attending [...] Drug Class(es) Dates Sig (Normalized) Sig (Original) acyclovir 400 mg oral tablet (1 source) Herpesvirus Nucleoside Analog DNA Polymerase Inhibitor, Herpes Simplex Virus Nucleoside Analog DNA Polymerase Inhibitor, Herpes Zoster Virus Nucleoside Analog DNA Polymerase Inhibitor Start: 06-16-2024 End: 06-21-2024 take 1 tablet by mouth five times daily acyclovir (Zovirax) 400 MG tablet Indications: Herpes labialis Take 1 tablet (400 mg) by mouth 5 (five) times a day for 5 days 25 tablet 06/16/2024 06/21/2024 Active [id number] actuat albuterol 0.09 mg/actuat metered dose inhaler (11 sources) beta2-Adrenergic Agonist Start: 05-21-2024 End: 07-12-2024 take 2 puff(s) by inhalation every six hours for wheezing albuterol HFA 90 mcg/act inhaler Indications: URI, acute Inhale 2 puffs every 6 (six) hours if needed for wheezing or shortness of breath 18 g 06/12/2024 07/12/2024 Active amoxicillin 875 mg / clavulanate 125 mg oral tablet (6 sources) Penicillin-class Antibacterial Start: 05-21-2024 End: 05-31-2024 take 1 tablet by mouth in the morning amoxicillin-clav ulanate (Augmentin) 875-125 MG tablet Indications: URI, acute Take 1 tablet (875 mg) by mouth in the morning and 1 tablet (875 mg) before bedtime. Do all this for 10 days. Take with food. 20 tablet 05/21/2024 05/31/2024 Active Start: 03-12-2022 take 1 tablet by juan m twice daily as needed Amoxicillin-Pot Clavulanate 875-125 MG amoxicillin-pot clavulanate 875-125mg, 1 (one) Tablet two times daily # 20, 03/12/2022, No Refill. 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 (CMS/HCC) , Mixed hyperlipidemia (CMS/HCC) Take 1 tablet (80 mg) by mouth at bedtime 90 tablet 1 03/08/2024 Active Blood Glucose Monitoring Suppl (True Metrix Meter) w/Device kit (20 sources) Start: 04-19-2023 Blood Glucose Monitoring Suppl (True Metrix Meter) w/Device kit USE 1 DAILY 04/19/2023 Active Start: 04-19-2023 Blood Glucose Monitoring Suppl (True Metrix Meter) w/Device kit USE 1 DAILY 0 04/19/2023 Active 12 hr buPROPion hydrochloride 150 mg extended release oral tablet (4 sources) Aminoketone Start: 06-16-2024 End: 09-08-2024 take 1 tablet by mouth every twelve hours in the morning buPROPion SR (Wellbutrin SR) 150 MG 12 hr tablet Indications: Tobacco user Take 1 tablet (150 mg) by mouth in the morning and 1 tablet (150 mg) before bedtime. 60 tablet 1 07/10/2024 09/08/2024 Active busPIRone hydrochloride 7.5 mg oral tablet (20 sources) Start: 11-05-2023 End: 07-30-2024 take 1 tablet by mouth in the morning busPIRone (Buspar) 7.5 MG tablet Indications: Anxiety Take 1 tablet (7.5 mg) by mouth in the morning and 1 tablet (7.5 mg) before bedtime. 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 Take with meals. 180 tablet 1 03/08/2024 Active dapagliflozin 10 mg oral tablet (20 sources) Sodium-Glucose Cotransporter 2 Inhibitor Start: 09-18-2023 End: 07-30-2024 take 1 tablet by mouth once daily dapagliflozin (Farxiga) 10 MG Indications: Type 2 diabetes mellitus with hyperglycemia, without long-term current use of insulin (CMS/HCC) Take 1 tablet (10 mg) by mouth Daily 90 tablet 1 05/01/2024 07/30/2024 Active Start: 07-24-2023 End: 12-25-2023 take 1 [...] DULoxetine 30 mg delayed release oral capsule (15 sources) Serotonin and Norepinephrine Reuptake Inhibitor Start: 04-27-2024 End: 09-08-2024 take 1 capsule by mouth once daily DULoxetine (Cymbalta) [address] capsule Indications: Anxiety Take 1 capsule (30 mg) by mouth Daily Do not crush or chew. 90 capsule 06/10/2024 09/08/2024 Active ezetimibe 10 mg oral tablet (12 sources) Dietary Cholesterol Absorption Inhibitor Start: 05-04-2024 End: 08-26-2024 take 1 tablet by mouth once daily ezetimibe (Zetia) 10 MG tablet Indications: Mixed hyperlipidemia (CMS/HCC) Take 1 tablet (10 mg) by mouth Daily 90 tablet 1 05/28/2024 08/26/2024 Active hydrocortisone acetate 25 mg rectal suppository (4 sources) Corticosteroid Start: 03-26-2024 End: 04-01-2024 hydrocortisone (Anusol-HC) 25 MG suppository Indications: Hemorrhoids Insert 1 suppository (25 mg) into the rectum 2 (two) times a day as needed for hemorrhoids for up to 6 days 12 suppository 03/26/2024 04/01/2024 Active Start: 09-18-2023 Hydrocortisone Acetate Active 25 MG DE Daily September 18, 2023 12:00am isopropyl alcohol 0.7 ml/ml medicated pad (20 sources) Start: 04-17-2023 Alcohol Swabs ([employer] Alcohol Prep Pads) 70 % pads USE 1 PER DAY 04/17/2023 Active levothyroxine sodium 0.025 mg oral tablet (20 sources) l-Thyrox ine Start: 04-20-2024 End: 07-19-2024 take 1 tablet by mouth before mealtime levothyroxine (Synthroid, Levoxyl) 25 MCG tablet Indications: Hypothyroidism, unspecified type (CMS/HCC) Take 1 tablet (25 mcg) by mouth in the morning. Take before meals. 90 tablet 1 04/20/2024 07/19/2024 Active Start: 10-29-2023 End: 01-27-2024 take 1 tablet by mouth before mealtime [...] Active oral daily for 0 [facility]* May, Not-Taking/PRN Start: 05-09-2022 take 1 tablet by juan m th once daily Levothyroxine 75mcg levothyroxine 75mcg, 1 (one) Tablet daily # 90, 05/09/2022, No Refill. Active oral daily for 0 *[facility]* May, Not-Taking metFORMIN hydrochloride 500 mg oral tablet (20 sources) Biguanide Start: 12-10-2023 End: 07-30-2024 take 2 tablets by mouth in the morning metFORMIN (Glucophage) 500 MG tablet Indications: Type 2 diabetes mellitus with hyperglycemia, without long-term current use of insulin (CMS/HCC) Take 2 tablets (1,000 mg) by mouth in the morning and 2 tablets (1,000 mg) in the evening. Take with meals. 360 tablet 1 05/01/2024 07/30/2024 Active Start: 07-24-2023 take 1000 mg by [...] two times daily for 0 *Reorder from [facility] for eRx and Interaction Alerts* Mar, Active nitrofurantoin, macrocrystals 25 mg / nitrofurantoin, monohydrate 75 mg oral capsule (3 sources) Nitrofuran Antibacterial Start: 01-16-2024 End: 01-23-2024 take 1 capsule by mouth in the morning nitrofurantoin, macrocrystal-monohydrate, (Macrobid) 100 MG capsule Indications: Acute cystitis without hematuria Take 1 capsule (100 mg) by mouth in the morning and 1 capsule (100 mg) before bedtime. Do all this for 7 days. 14 capsule 01/16/2024 01/23/2024 Active nitroglycerin 0.4 mg sublingual tablet (20 sources) Nitrate Vasodilator Start: 04-12-2023 End: 07-24-2023 nitroglycerin (Nitrostat) 0.[address] 0.4 mg under the tongue every 5 (five) minutes if needed 05/09/2023 Active Nitroglycerin 0. 4 MG as directed Sublingual Active ondansetron 4 mg disintegrating oral tablet (2 sources) Serotonin-3 Receptor Antagonist Start: 03-26-2024 End: 04-02-2024 take 1 tablet by mouth every eight hours for nausea ondansetron ODT (Zofran-ODT) 4 MG disintegrating tablet Indications: Nausea and vomiting, unspecified vomiting type Take 1 tablet (4 mg) by mouth every 8 (eight) hours if needed for vomiting or nausea for up to 7 days 21 tablet 03/26/2024 04/02/2024 Active Start: 02-18-2024 End: 02-25-2024 take 1 tablet by mouth every eight hours for nausea ondansetron ODT (Zofran-ODT) 4 MG disintegrating tablet Indications: Nausea and vomiting, unspecified vomiting type Take 1 tablet (4 mg) by mouth every 8 (eight) hours if needed for nausea or vomiting for up to 7 days 21 tablet 02/18/2024 02/25/2024 Active sacubitril 49 mg / valsartan 51 mg oral tablet (20 sources) Angiotensin 2 Receptor Raina Start: 03-09-2024 [...] Discontinued 1 TAB PO Twice daily 60 October 29, 2023 12:08pm December 25, 2023 3:46pm take 1 tablet by juan m th in the morning sacubitril-valsartan (Entresto) 97-103 MG tablet Take 1 tablet by mouth in the morning and 1 tablet before bedtime. Active End: 01-23-2024 take 1 tablet by mouth in the morning sacubitril-valsartan (Entresto) 24-26 MG tablet Indications: Heart Failure Take 1 tablet by mouth in the morning and 1 tablet before bedtime. 01/23/2024 Discontinued (Therapy completed) Semaglutide (1 source) Start: 03-18-2024 Semaglutide (O zempic) 0.25 mg or 0.5 mg (2 mg/3 mL) pen injector Active 0.5 MG SUBCUT every week March 18, 2024 12:00am semaglutide (Ozempic, 1 MG/DOSE,) 4 MG/3ML solution pen-injector (16 sources) Start: 06-01-2024 End: 08-24-2024 inject 1 mg by subcutaneous injection every week semaglutide (Ozempic, 1 MG/DOSE,) 4 MG/3ML solution pen-injector Indications: Type 2 diabetes mellitus with hyperglycemia, without long-term current use of insulin (CMS/HCC) Inject 1 mg under the skin 1 (one) time per week 3 each 1 06/01/2024 08/24/2024 Active Start: 04-27-2024 End: 06-01-2024 inject 1 mg by subcutaneous injection every week semaglutide (Ozempic, 1 MG/DOSE,) 4 MG/3ML solution pen-injector Indications: Type 2 diabetes mellitus with hyperglycemia, without long-term current use of insulin (CMS/HCC) Inject 1 mg under the skin 1 (one) time per week 3 each 1 04/27/2024 06/01/2024 Discontinued (Reorder) Start: 04-27-2024 End: 07-20-2024 inject 1 mg by subcutaneous injection every week semaglutide (Ozempic, 1 MG/DOSE,) 4 MG/3ML solution pen-injector Indications: Type 2 diabetes mellitus with hyperglycemia, without long-term current use of insulin (CMS/HCC) Inject 1 mg under the skin 1 (one) time per week 3 each 1 04/27/2024 07/20/2024 Active Semaglutide,0.25 or 0.5MG/DO S, (Ozempic, 0.25 or 0.5 MG/DOSE,) 2 MG/3ML solution pen-injector (12 sources) Start: 04-12-2024 End: 04-27-2024 Semaglutide,0.25 or 0.5MG/DO S, (Ozempic, 0.25 or [...] a week 3 mL 2 01/23/2024 Active Start: 01-23-2024 End: 02-20-2024 Semaglutide,0.25 or 0.5MG/DO S, (Ozempic, 0.25 or 0.5 MG/DOSE,) 2 MG/3ML solution pen-injector Indications: Type 2 diabetes mellitus with hyperglycemia, without long-term current use of insulin (CMS/HCC) Inject 0.25 mg under the skin every 7 (seven) days for 28 days 0.25mg once a week for 4 weeks, then increase to 0.5mg once a week 3 mL 2 01/23/2024 02/20/2024 Active sertraline 50 mg oral tablet (18 sources) Serotonin Reuptake Inhibitor Start: 04-20-2024 End: 07-19-2024 take 1 tablet by mouth once daily sertraline (Zoloft) 50 MG tablet Indications: Anxiety Take 1 tablet (50 mg) by mouth Daily 90 tablet 1 04/20/2024 04/27/2024 Discontinued (Ineffective) Start: 10-29-2023 End: 01-27-2024 take 1 tablet by mouth once daily [...] 09/04/2023 Active tiZANidine 4 mg oral tablet (20 sources) Central alpha-2 Adrenergic Agonist Start: 12-19-2023 [...] muscle spasms 15 tablet 0 06/17/2023 Active valACYclovir 1000 mg oral tablet (2 sources) Herpesvirus Nucleoside Analog DNA Polymerase Inhibitor, Herpes Simplex Virus Nucleoside Analog DNA Polymerase Inhibitor, Herpes Zoster Virus Nucleoside Analog DNA Polymerase Inhibitor Start: 02-17-2024 End: 02-24-2024 take 1 tablet by mouth every eight hours valACYclovir (Valtrex) 1 g tablet Indications: Herpes zoster without complication Take 1 tablet (1,000 mg) by mouth every 8 (eight) hours for 7 days 21 tablet 02/17/2024 02/24/2024 Active Completed/Discontinued Medications Medication Drug Class(es) Dates Sig (Normalized) Sig (Original) 24 hr isosorbide mononitrate 30 mg extended release oral tablet (20 sources) Nitrate Vasodilator Start: 10-29-2023 End: 03-09-2024 [...] 24 hr nicotine 0.583 mg/hr transdermal system (14 sources) Cholinergic Nicotinic Agonist Start: 09-18-2023 End: [...] Documented Da te Episodic/Chronic Acute myocardial infarction (20 sources) Myocardial infarction; Translations: [Non-ST elevation (NSTEMI) myocardial infarction] Onset: 07-11-2023 04-10-2023 Chronic Anxiety disorders (20 sources) Anxiety state; Translations: [Anxiety state, unspecified] [...] hypertension] Onset: 05-09-2023 04-10-2023 Chronic Menopausal disorders (20 sources) Menopausal symptom; Translations: [Menopausal and female climacteric states] Onset: 07-11-2023 07-11-2023 Chronic Menstrual disorders (20 sources) Dysmenorrhea; Translations: [Dysmenorrhea, unspecified] Onset: 04-29-2023 04-29-2023 Chronic Other circulatory disease (4 sources) Elevated blood-pressure [...] Episodic Other nutritional; endocrine; and metabolic disorders (20 sources) Body mass index 30+ - obesity; [...] cyst, right side] Episodic Residual codes; unclassified (20 sources) Obstructive sleep apnea syndrome; Translations: [Obstructive sleep apnea (adult) (pediatric)] Onset: 05-08-2023 04-10-2023 Chronic Residual codes; unclassified (3 sources) Obstructive sleep apnea (adult) (pediatric); Translations: [Obstructive sleep apnea (adult)(pediatric)] 04-12-2023 Chronic Residual codes; unclassified (3 sources) Tobacco use; Translations: [Tobacco use disorder] 04-12-2023 Episodic Residual codes; unclassified (20 sources) Tobacco user; Translations: [Tobacco use] Onset: 07-11-2023 07-11-2023 Episodic Residual codes; unclassified (8 sources) Family history of cancer; Translations: [Family history of malignant neoplasm, unspecified] Onset: 06-08-2024 06-08-2024 Episodic Thyroid disorders (20 sources) Hypothyroidism, unspecified; Translations: [Hypothyroidism] Onset: 01-04-2022 Chronic Unclassified (4 sources) Acute candidiasis of vulva and vagina; Translations: [Acute candidiasis of vulva and vagina] Unclassified (1 source) Patient on antidepressant monitoring plan Onset: 07-09-2024 07-09-2024 Unclassified (1 source) Baseline PHQ-9 Onset: 07-09-2024 07-09-2024 Viral infection (20 sources) Herpesviral vesicular dermatitis; Translations: [Herpesviral vesicular [...] of unspecified site] Onset: 01-15-2018 Episodic Hemorrhoids (20 sources) Hemorrhoids; Translations: [Unspecified hemorrhoids] Onset: 09-10-2023 09-10-2023 Episodic Mycoses (20 sources) Candidiasis of vagina; Translations: [Yeast infection of the vagina] Onset: 04-29-2023 04-29-2023 Episodic Nausea and vomiting (20 sources) Nausea and vomiting; Translations: [Nausea with vomiting, unspecified] Onset: 02-18-2024 02-18-2024 Episodic Noninfectious gastroenteritis (4 sources) Non-infective enteritis and colitis; Translations: [Noninfective gastroenteritis and colitis, unspecified] Onset: 08-16-2017 Episodic Other connective tissue disease (4 sources) Pain in limb; Translations: [Pain in left toe(s)] Onset: 10-08-2017 Episodic Other screening for suspected conditions (not mental disorders or infectious disease) (20 sources) Patient encounter status; Translations: [Encounter for screening mammogram for malignant neoplasm of breast] Onset: 08-26-2023 08-26-2023 Episodic Other upper respiratory infections (16 sources) Acute maxillary sinusitis; Translations: [Acute recurrent maxillary sinusitis] Onset: 07-26-2016 Resolved: 06-08-2024 05-21-2024 Episodic Otitis media and related conditions (4 sources) Eustachian tube salpingitis; Translations: [Unspecified Eustachian salpingitis, left ear] Onset: 11-19-2018 Episodic Pneumonia (except that caused by tuberculosis or sexually transmitted disease) (20 sources) Pneumonia; Translations: [Pneumonia, unspecified organism] Onset: 05-01-2011 Resolved: 05-20-2023 05-20-2023 Episodic Residual codes; unclassified (20 sources) Harmful pattern of use of nicotine; Translations: [Tobacco use] Onset: 07-11-2023 04-10-2023 Episodic Spondylosis; intervertebral disc disorders; other back problems (20 sources) Low back pain; Translations: [Lumbar back pain] Onset: 06-06-2023 06-06-2023 Episodic Urinary tract infections (20 sources) Acute cystitis; Translations: [Acute cystitis without hematuria] Onset: 01-16-2024 01-16-2024 Episodic Results Test Name Value Interpretation Reference Range Facility ALL LIPID PROFILE (FASTING)o n 05-01-2024 CHOL HDL RATIO 4.1 [facility] Comment on above: 3.3 - 4.4 LOW RISK 4.4 - 7.1 AVERAGE RISK 7.1 - 11.0 MODERATE RISK >11.0 HIGH RISK Cholesterol [Mass/Vol] 156 mg/dL NINF - 200 mg/dL [facility] Cholesterol in HDL [Mass/Vol] 38 mg/dL Low 40 - 60 mg/dL [facility] Comment on above: > or =60 mg/dl - LOW CARDIOVASCULAR RISK <40 mg/dl - HIGH CARDIOVASCULAR RISK Magnesium [Mass/Vol] 64 mg/dL [facility] Comment on above: <100 mg/dl OPTIMAL 100-129 mg/dl NEAR OR ABOVE OPTIMAL 130-159 mg/dl BORDERLINE HIGH 160-189 mg/dl HIGH >190 mg/dl VERY HIGH Magnesium [Mass/Vol] 54.4 mg/dL [facility] Triglyceride [Mass/Vol] 272 mg/dL High NINF - 150 mg/dL [facility] ALL THYROID STIM HORMONEon 1 07-01-2023 TSH Qn 1.826 m[IU]/L [facility] CMP (CMP) (FOR REMOTE FH C USE)on 05-01-2024 Albumin [Mass/Vol] 3.5 g/dL 3.4 - 5.0 g/dL [facility] ALBUMIN GLOBULIN RATIO 0.9 NO [facility] ALP [Catalytic activity/Vol] 88 U/L 46 - 116 U/L [facility] ALT [Catalytic activity/Vol] 30 U/L 14 - 59 U/L [facility] Anion gap [Moles/Vol] 12.3 mmol/L NO [facility] AST [Catalytic activity/Vol] 10 U/L Low 15 - 37 U/L [facility] Bilirubin [Mass/Vol] 0.5 mg/dL 0.2 - 1 .0 mg/dL [facility] Calcium [Mass/Vol] 9.2 mg/dL 8.5 - 10. 1 mg/dL [facility] Chloride [Moles/Vol] 102 mmol/L 98 - 10 7 mmol/L [facility] CO2 [Moles/Vol] 28.8 mmol/L 21.0 - 32.0 mmol/L [facility] Creatinine [Mass/Vol] 0.77 mg/dL 0.55 - 1.02 mg/dL [facility] GFR/1.73 sq M.predicted CKD-EPI (S/P/Bld) [Vol rate/Area] >60 >=60 mL/min/1.73 m 2 [facility] Globulin (S) [Mass/Vol] 3.7 g/dL [facility] Glucose [Mass/Vol] 152 mg/dL High 74 - 106 mg/dL [facility] Potassium [Moles/Vol] 4.1 mmol/L 3.5 - 5.1 mmol/L [facility] Protein [Mass/Vol] 7.2 g/dL 6.4 - 8.2 g/dL [facility] Sodium [Moles/Vol] 139 mmol/L 136 - 145 mmol/L [facility] TBH EGFR-NON AF SALVADOREAN >60 >=60 mL/min/1.73 m 2 [facility] Urea nitrogen [Mass/Vol] 13 mg/dL 7.0 - 18.0 mg/dL [facility] Urea nitrogen/Creatinine [Mass ratio] 16.9 mg/mg [facility] No Panel Informationon 05-01 Interpretation and review of laboratory results Abnormal [facility] HbA1c (Bld) [Mass fraction]o n 04-27-2024 Interpretation and review of laboratory results Abnormal [facility] - Hematology and Cell countson 04-27-2024 HbA1c (Bld) [Mass fraction] 7.3 % [facility] echo transthoracicon [facility] echo transthoracic [facility] [place] [address] Echocardiogram Signed Patient: Lorraine Mitchell MR#: [id number] 93 : 1975 Acct:[id number] Age/Sex: 48 / F ADM Date: 04/24/24 Loc: Room: Type: [facility] Attending Dr: Stephanie Sweet MD Ordering Provider: Stephanie Sweet MD Date of Service: 04/24/24 [facility]: I50.20 - Unspecified systolic (congestive) heart failure Copies to: Stephanie Sweet MD BSA: 1.9 m2 BP: 111/74 mmHg HR: 73 Reason For Study: I50.20 - Unspecified systolic (congestive) heart failure History: HTN, HLD, DM, Smoker, CAD, Stents, OR, PIPPA, COVID Interpretation Summary The LV ejection [...] 1343 Signed By: Stephanie Sweet MD 04/24/24 1719 Normal [facility] No Panel Informationon 01-26 [facility] TB MICROALB CREAT RATIO RAN DOMon 01-27-2024 CREATININE URINE RANDOM 56.64 mg/dL 20.00 - 300.00 mg/dL [facility] MICROALBUMIN URINE RANDOM <1.3 NINF - 30.0 mg/dL [facility] TBH UA (CLEAN/CATCH) MICROSC OPIC IF INDICATEon 01-27-2024 BILIRUBIN URINE Negative NEGATIVE [facility] BLOOD URINE Negative NEGATIVE [facility] Clarity (U) CLEAR CLEAR [facility] Color (U) YELLOW YELLOW [facility] GLUCOSE URINE UA >=1000 Abnormal NEGATIVE mg/dL [facility] Interpretation and review of laboratory results Abnormal [facility] Ketones Ql (U) Negative NEGATIVE mg/dL [facility] Leukocyte esterase Test strip Ql (U) Negative NEGATIVE [facility] NITRITE URINE Negative NEGATIVE [facility] pH (U) 5.5 [pH] 5.0 - 9.0 [facility] PROTEIN URINE Negative NEG/TRACE mg/dL [facility] SPECIFIC GRAVITY URINE 1.020 1.005 - 1.025 [facility] URINE MICROSCOPIC INDICATED NO [facility] UROBILINOGEN URINE 0.2 EU/dL 0.2 - 1.0 EU/dL [facility] echo transthoracicon [facility] echo transthoracic [facility] [place] [address] Echocardiogram Signed Patient: Lorraine Mitchell MR#: [id number] [birth year] : 1975 Acct:[id number] Age/Sex: 47 / F ADM Date: 07/12/23 Loc: Room: Type: [facility] Attending Dr: Stephanie Sweet MD Ordering Provider: Stephanie Sweet MD Date of Service: 07/12/2302/24/1326 [facility] echo transthoracic: History of non-ST elevation myocardial infarction (NSTEMI);I Copies to: MD Grace Reederssi,MD Weight: 190 lb Performed By: Aruna Espinoza [...] m2 CI (): ED Mass (HM): LAEF (HM): 73.0 % 2.9 l/min/m2 189.0 grams __ CHARAN (HM): LAVmax (HM): LAVmin (HM): 31.0 mlPat Height (HM): 113.0 ml 165.0 cm 59.0 ml/m2 __ [...] Grace Solorio MD 07/12/23 1521 Normal [facility] ALL LIPID PROFILE (FASTING)o n 07-06-2023 CHOL HDL RATIO 3.8 [facility] Comment on above: 3.3 - 4.4 LOW RISK 4.4 - 7.1 AVERAGE RISK 7.1 - 11.0 MODERATE RISK >11.0 HIGH RISK Cholesterol [Mass/Vol] 124 mg/dL NINF - 200 mg/dL [facility] Cholesterol in HDL [Mass/Vol] 33 mg/dL Low 40 - 60 mg/dL [facility] Comment on above: > or =60 mg/dl - LOW CARDIOVASCULAR RISK <40 mg/dl - HIGH CARDIOVASCULAR RISK Magnesium [Mass/Vol] 37.0 mg/dL [facility] Comment on above: <100 mg/dl OPTIMAL 100-129 mg/dl NEAR OR ABOVE OPTIMAL 130-159 mg/dl BORDERLINE HIGH 160-189 mg/dl HIGH >190 mg/dl VERY HIGH Magnesium [Mass/Vol] 54.2 mg/dL [facility] Triglyceride [Mass/Vol] 271 mg/dL High NINF - 150 mg/dL [facility] 07-06-2023 ALT [Catalytic activity/Vol] 37 U/L 14 - 59 U/L [facility] 07-06-2023 AST [Catalytic activity/Vol] 13 U/L Low 15 - 37 U/L [facility] No Panel Informationon 07-06 Interpretation and review of laboratory results Abnormal [facility] Glucose Glucometer (BldC) [M ass/Vol]Ordered By: Florentino Kenyon on 04-12-2023 Glucose [Mass/Vol] 226 mg/dL [facility] Comment on above: Random Glucose Refer [...] <= 0.01 ng/mL [Mass/Vol] 3417.1 pg/mL 0.0-15.0 [facility] Comment on above: Critical Result : Ca lled to and read back by: CLAYTON MCCLOUD at: 04/12/2023 06:08:29 by:[email or web address] Activated partial thrombopla stin time (aPTT) in platelet poor plasma by coagulation aOrdered By: Stephanie Sweet on 04-11-2023 aPTT Coag (PPP) [Time] 29.3 s 25.1-36.5 [facility] Comment on above: A hematocrit value g reater than 55% may lead to inaccurate results in coagulation testing. Patients having hematocrit values >55% require a special collection tube for coagulation studies. Please contact the laboratory at [phone] for redraw instructions. Basophils Auto (Bld) [#/Vol] Ordered By: Stephanie Sweet on 04-11-2023 Basophils (Bld) [#/Vol] 0.0 10*3/uL 0.0-0.2 [facility] Basophils/100 WBC Auto (Bld) Ordered By: Stephanie Sweet on 04-11-2023 Basophils/100 WBC (Bld) 0.5 % . [facility] Carbon dioxide, total [Moles /volume] in Serum or PlasmaOrdered By: Stephanie Sweet on 04-11-2023 CO2 [Moles/Vol] 26.7 mmol/L 21.0-31.0 [facility] Chloride [Moles/volume] in S ambika or PlasmaOrdered By: Stephanie Sweet on 04-11-2023 Chloride [Moles/Vol] 101 mmol/L 98-107 [facility] Creatine kinase [Enzymatic a ctivity/volume] in Serum or PlasmaOrdered By: Florentino Kenyon on 04-11-2023 CK [Catalytic activity/Vol] 186 U/L 30-223 [facility] Creatinine [Mass/volume] in Serum or PlasmaOrdered By: Stephanie Sweet on 04-11-2023 Creatinine [Mass/Vol] 0.47 mg/dL 0.60-1.20 [facility] Eosinophils Auto (Bld) [#/Vo l]Ordered By: Stephanie Sweet on 04-11-2023 Eosinophils (Bld) [#/Vol] 0.1 10*3/uL 0.0-0.45 [facility] Eosinophils/100 WBC Auto (Bl d)Ordered By: Stephanie Sweet on 04-11-2023 Eosinophils/100 WBC (Bld) 0.9 % . [facility] Erythrocyte distribution wid th Auto (RBC) [Ratio]Ordered By: Stephanie Sweet on 04-11-2023 Erythrocyte distribution width (RBC) [Ratio] 14.5 % 11.9-15.3 [facility] Hematocrit Auto (Bld) [Volum e fraction]Ordered By: Stephanie Sweet on 04-11-2023 Hematocrit (Bld) [Volume fraction] 35.1 % 34.0-46.4 [facility] Hemoglobin [Mass/volume] in BloodOrdered By: Stephanie Sweet on 04-11-2023 Hemoglobin (Bld) [Mass/Vol] 11.8 g/dL 11.8-15.4 [facility] INR in Platelet poor plasma by Coagulation assayOrdered By: Stephanie Sweet on 04-11-2023 INR Coag (PPP) [Relative time] 1.0 {INR} [facility] Comment on above: INR Therapeutic [...] RBC Auto (Bld) [#/Vol] 9.0 10*3/uL 3.8-11.6 [facility] Lymphocytes Auto (Bld) [#/Vo l]Ordered By: Stephanie Sweet on 04-11-2023 Lymphocytes (Bld) [#/Vol] 3.0 10*3/uL 1.00-4.8 [facility] Lymphocytes/100 WBC Auto (Bl d)Ordered By: Stephanie Sweet on 04-11-2023 Lymphocytes/100 WBC (Bld) 33.4 % . [facility] MCH Auto (RBC) [Entitic mass ]Ordered By: Stephanie Sweet on 04-11-2023 MCH (RBC) [Entitic mass] 30.7 pg 24.7-34.3 [facility] MCHC Auto (RBC) [Mass/Vol]Or dered By: Stephanie Sweet on 04-11-2023 MCHC (RBC) [Mass/Vol] 33.7 g/dL 32.0-35.0 [facility] MCV Auto (RBC) [Entitic vol] Ordered By: Stephanie Sweet on 04-11-2023 MCV (RBC) [Entitic vol] 91.1 fL 80-100 [facility] Monocytes Auto (Bld) [#/Vol] Ordered By: Stephanie Sweet on 04-11-2023 Monocytes (Bld) [#/Vol] 0.5 10*3/uL 0.0-0.8 [facility] Monocytes/100 WBC Auto (Bld) Ordered By: Stephanie Sweet on 04-11-2023 Monocytes/100 WBC (Bld) 5.8 % . [facility] Neutrophils Auto (Bld) [#/Vo l]Ordered By: Stephanie Sweet on 04-11-2023 Neutrophils (Bld) [#/Vol] 5.3 10*3/uL 1.8-7.7 [facility] Neutrophils/100 WBC Auto (Bl d)Ordered By: Stephanie Sweet on 04-11-2023 Neutrophils/100 WBC (Bld) 59.4 % . [facility] No Panel InformationOrdered By: Florentino Kenyon on 04-11-2023 Bedside Glucose Comment Glu2: cleaned meter [facility] No Panel InformationOrdered By: Stephanie Sweet on 04-11-2023 Estimated GFR (CKD-EPI) > 60.0 mL/Min [facility] Creatinine Clearance (Chem 166.11 [facility] Nucleated erythrocytes [Pres ence] in Blood by Automated countOrdered By: Stephanie Sweet on 04-11-2023 Nucleated RBC Auto Ql (Bld) 0.1 /100{WBC} 0-0.5 [facility] Platelet mean volume Auto (B ld) [Entitic vol]Ordered By: Stephanie Sweet on 04-11-2023 Platelet mean volume (Bld) [Entitic vol] 9.4 fL 6.3-10.7 [facility] Platelets Auto (Bld) [#/Vol] Ordered By: Stephanie Sweet on 04-11-2023 Platelets (Bld) [#/Vol] 213 10*3/uL 150-450 [facility] Potassium [Moles/volume] in Serum or PlasmaOrdered By: Stephanie Sweet on 04-11-2023 Potassium [Moles/Vol] 3.8 mmol/L 3.5-5.1 [facility] Prothrombin time (PT)Ordered By: Stephanie Sweet on 04-11-2023 PT Coag (PPP) [Time] 12.0 s 9.0-12.9 [facility] Comment on above: A hematocrit value g reater than 55% may lead to inaccurate results in coagulation testing. Patients having hematocrit values >55% require a special collection tube for coagulation studies. Please contact the laboratory at [phone] for redraw instructions. RBC Auto (Bld) [#/Vol]Ordere d By: Stephanie Sweet on 04-11-2023 RBC (Bld) [#/Vol] 3.85 10*6/uL 3.60-5.00 [facility] Serum or plasma anion gap de terminationOrdered By: Stephanie Sweet on 04-11-2023 Anion gap [Moles/Vol] 12.1 mmol/L 6.0-15.0 [facility] Sodium [Moles/volume] in Ser um or PlasmaOrdered By: Stephanie Sweet on 04-11-2023 Sodium [Moles/Vol] 136 mmol/L 136-145 [facility] Urea nitrogen [Mass/volume] in Serum or PlasmaOrdered By: Stephanie Sweet on 04-11-2023 Urea nitrogen [Mass/Vol] 11 mg/dL 7-25 [facility] WBC Auto (Bld) [#/Vol]Ordere d By: Stephanie Sweet on 04-11-2023 WBC (Bld) [#/Vol] 9.0 10*3/uL 3.8-11.6 [facility] FREE T4on 01-04-2022 Free T4 [Mass/Vol] 0.91 ng/dL Normal 0.76-1.46 [facility] Comment on above: Performed By: #### F T4 #### [facility] [address] [address] [address] Jane Alexis LAB TESTINGon 01-04-2022 RECV HEADER SEE SCANNED REPORT IN HPF Normal [facility] Comment on above: Performed By: #### M ISC #### [facility] [address] [address] [address] Jane Alexis REV FROM REF LAB 01/05/22 [facility] Comment on above: Performed By: #### M ISC #### [facility] [address] [address] [address] Jane Alexis SENT TO REF LAB 01/04/22 [facility] Comment on above: Performed By: #### M ISC #### [facility] [address] [place] [address] Dr. Jane Alexis TSHon 01-04-2022 TSH 2.294 uIU/mL Normal 0.358-3.740 [facility] Comment on above: Performed By: #### T SH #### [facility] [address] [place] [address] Dr. Jane Alexis Physician Referralon 021 Physician Referral [id number] Normal [facility] Vital Signs Date Time Vital Sign Value Performing Clinician Facility 06-08-2024 10:53-0500 Body height 165.1 cm Nelida Ambrosio BUSINESS OFFICE SPECIALIST Work Phone: [facility] 06-08-2024 10:53-0500 Body mass index (BMI) [Ratio] 31.38 kg/m2 Nelida Ambrosio BUSINESS OFFICE SPECIALIST Work Phone: [facility] 06-08-2024 10:53-0500 Body temperature 97.2 [degF] Nelida Ambrosio BUSINESS OFFICE SPECIALIST Work Phone: [facility] 06-08-2024 10:53-0500 Body weight 85.55 kg Nelida Ambrosio BUSINESS OFFICE SPECIALIST Work Phone: [facility] 06-08-2024 10:53-0500 Diastolic blood pressure 82 mm[Hg] Nelida Ambrosio BUSINESS OFFICE SPECIALIST Work Phone: [facility] 06-08-2024 10:53-0500 Heart rate 82 /min Nelida Aichholz BUSINESS OFFICE SPECIALIST Work Phone: [facility] 06-08-2024 10:53-0500 Respiratory rate 20 /min Nelida Aichholz BUSINESS OFFICE SPECIALIST Work Phone: [facility] 06-08-2024 10:53-0500 SaO2% (BldA) [Mass fraction] 97 % Nelida Aichholz BUSINESS OFFICE SPECIALIST Work Phone: [facility] 06-08-2024 10:53-0500 Systolic blood pressure 138 mm[Hg] Nelida Aichholz BUSINESS OFFICE SPECIALIST Work Phone: [facility] 04-27-2024 11:39-0500 Body height 165.1 cm Nelida Aichholz BUSINESS OFFICE SPECIALIST Work Phone: [facility] 04-27-2024 11:39-0500 Body mass index (BMI) [Ratio] 31.78 kg/m2 Nelida Aichholz BUSINESS OFFICE SPECIALIST Work Phone: [facility] 04-27-2024 11:39-0500 Body temperature 98.1 [degF] Nelida Nandahholz BUSINESS OFFICE SPECIALIST Work Phone: [facility] 04-27-2024 11:39-0500 Body weight 86.64 kg Nelida Aichholz BUSINESS OFFICE SPECIALIST Work Phone: [facility] 04-27-2024 11:39-0500 Diastolic blood pressure 78 mm[Hg] Nelida Aichholz BUSINESS OFFICE SPECIALIST Work Phone: [facility] 04-27-2024 11:39-0500 Heart rate 81 /min Nelida Aichholz BUSINESS OFFICE SPECIALIST Work Phone: [facility] 04-27-2024 11:39-0500 Respiratory rate 18 /min Nelida Aichholz BUSINESS OFFICE SPECIALIST Work Phone: [facility] 04-27-2024 11:39-0500 SaO2% (BldA) [Mass fraction] 96 % Nelida Aichholz BUSINESS OFFICE SPECIALIST Work Phone: [facility] 04-27-2024 11:39-0500 Systolic blood pressure 104 mm[Hg] Nelida Aichholz BUSINESS OFFICE SPECIALIST Work Phone: [facility] 03-18-2024 13:30-0400 Body height 160.02 cm [facility] 03-18-2024 13:30-0400 Body mass index (BMI) [Ratio] 34.2 kg/m2 [facility] 03-18-2024 13:30-0400 Body weight 87.54 kg [facility] 03-18-2024 13:30-0400 Diastolic blood pressure 74 mm[Hg] [facility] 03-18-2024 13:30-0400 Heart rate 82 /min [facility] 03-18-2024 13:30-0400 Respiratory rate 18 /min [facility] 03-18-2024 13:30-0400 SaO2% (BldA) [Mass fraction] 97 % [facility] 03-18-2024 13:30-0400 Systolic blood pressure 116 mm[Hg] [facility] 01-23-2024 11:49-0400 Body height 165.1 cm Nelida Daily BUSINESS OFFICE SPECIALIST Work Phone: [facility] 01-23-2024 11:49-0400 Body mass index (BMI) [Ratio] 32.62 kg/m2 Nelida Eraz BUSINESS OFFICE SPECIALIST Work Phone: [facility] 01-23-2024 11:49-0400 Body temperature 98.6 [degF] Nelida Eraz BUSINESS OFFICE SPECIALIST Work Phone: [facility] 01-23-2024 11:49-0400 Body weight 88.91 kg Nelida Eraz BUSINESS OFFICE SPECIALIST Work Phone: [facility] 01-23-2024 11:49-0400 Diastolic blood pressure 76 mm[Hg] Nelida Jackelynholz BUSINESS OFFICE SPECIALIST Work Phone: [facility] 01-23-2024 11:49-0400 Heart rate 78 /min Nelida Jackelynholz BUSINESS OFFICE SPECIALIST Work Phone: [facility] 01-23-2024 11:49-0400 Respiratory rate 18 /min Nelida Jackelynholz BUSINESS OFFICE SPECIALIST Work Phone: [facility] 01-23-2024 11:49-0400 SaO2% (BldA) [Mass fraction] 97 % Nelida Ambrosio BUSINESS OFFICE SPECIALIST Work Phone: [facility] 01-23-2024 11:49-0400 Systolic blood pressure 112 mm[Hg] Nelida Ambrosio BUSINESS OFFICE SPECIALIST Work Phone: [facility] 12-25-2023 15:04-0400 Body height 165.1 cm [facility] 12-25-2023 15:04-0400 Body mass index (BMI) [Ratio] 32.9 kg/m2 [facility] 12-25-2023 15:04-0400 Body weight 89.81 kg [facility] 12-25-2023 15:04-0400 Diastolic blood pressure 80 mm[Hg] [facility] 12-25-2023 15:04-0400 Heart rate 73 /min [facility] 12-25-2023 15:04-0400 Respiratory rate 18 /min [facility] 12-25-2023 15:04-0400 SaO2% (BldA) [Mass fraction] 97 % [facility] 12-25-2023 15:04-0400 Systolic blood pressure 120 mm[Hg] [facility] 09-18-2023 15:52-0400 Body height 165.1 cm MD Shilpa Lewis Work Phone: [facility] 09-18-2023 15:52-0400 Body mass index (BMI) [Ratio] 31.4 kg/m2 MD Shilpa Lewis Work Phone: [facility] 09-18-2023 15:52-0400 Body weight 85.72 kg MD Shilpa Lewis Work Phone: [facility] 09-18-2023 15:52-0400 Diastolic blood pressure 68 mm[Hg] MD Shilpa Lewis Work Phone: [facility] 09-18-2023 15:52-0400 Heart rate 76 /min MD Shilpa Lewis Work Phone: [facility] 09-18-2023 15:52-0400 Respiratory rate 18 /min MD Shilpa Lewis Work Phone: [facility] 09-18-2023 15:52-0400 SaO2% (BldA) [Mass fraction] 96 % MD Shilpa Lewis Work Phone: [facility] 09-18-2023 15:52-0400 Systolic blood pressure 122 mm[Hg] MD Shilpa Lewis Work Phone: [facility] 07-24-2023 09:16-0500 Body height 165.1 cm MD Shilpa Lewis Work Phone: [facility] 07-24-2023 09:16-0500 Body mass index (BMI) [Ratio] 31.8 kg/m2 MD Shilpa Lewis Work Phone: [facility] 07-24-2023 09:16-0500 Body weight 86.63 kg MD Shilpa Lewis Work Phone: [facility] 07-24-2023 09:16-0500 Diastolic blood pressure 82 mm[Hg] MD Shilpa Lewis Work Phone: [facility] 07-24-2023 09:16-0500 Heart rate 80 /min MD Shilpa Lweis Work Phone: [facility] 07-24-2023 09:16-0500 Respiratory rate 18 /min MD Shilpa Lewis Work Phone: [facility] 07-24-2023 09:16-0500 SaO2% (BldA) [Mass fraction] 97 % MD Shilpa Lewis Work Phone: [facility] 07-24-2023 09:16-0500 Systolic blood pressure 126 mm[Hg] MD Shilpa Lewis Work Phone: [facility] 07-11-2023 15:46-0500 Body height 165.1 cm Nelida Ambrosio NP Work Phone: [facility] 07-11-2023 15:46-0500 Body mass index (BMI) [Ratio] 31.68 kg/m2 Nelidamakayla Haydenholz BUSINESS OFFICE SPECIALIST Work Phone: [facility] 07-11-2023 15:46-0500 Body temperature 97.39 [degF] Nelidamakayla Haydenholz BUSINESS OFFICE SPECIALIST Work Phone: [facility] 07-11-2023 15:46-0500 Body weight 86.36 kg Nelida Nandahholz BUSINESS OFFICE SPECIALIST Work Phone: [facility] 07-11-2023 15:46-0500 Diastolic blood pressure 78 mm[Hg] Nelida Aichholz BUSINESS OFFICE SPECIALIST Work Phone: [facility] 07-11-2023 15:46-0500 Heart rate 96 /min Nelida Nandahholz BUSINESS OFFICE SPECIALIST Work Phone: [facility] 07-11-2023 15:46-0500 Respiratory rate 18 /min Nelida Jackelynholz BUSINESS OFFICE SPECIALIST Work Phone: [facility] 07-11-2023 15:46-0500 SaO2% (BldA) [Mass fraction] 97 % Nelida Nandahholz BUSINESS OFFICE SPECIALIST Work Phone: [facility] 07-11-2023 15:46-0500 Systolic blood pressure 118 mm[Hg] Nelida Jackelynholz BUSINESS OFFICE SPECIALIST Work Phone: [facility] 05-01-2023 11:40-0500 Body height 165.1 cm Stephanie Sweet Other [facility] 05-01-2023 11:40-0500 Body mass index (BMI) [Ratio] 31.95 kg/m2 Stephanie Sweet Other [employer] Other 05-01-2023 11:40-0500 Body weight 87.09 kg Stephanie Kee Other [place] [employer] Other 05-01-2023 11:40-0500 Body weight 87.08 kg MD Shilpa Lewis Work Phone: [facility] 05-01-2023 11:40-0500 Diastolic blood pressure 82 mm[Hg] Stephanie Kee Other [facility] 05-01-2023 11:40-0500 Respiratory rate 20 /min Stephanie Marioge Other [facility] Other 05-01-2023 11:40-0500 SaO2% (BldA) [Mass fraction] 96 % Stephanie Sweet Other [facility] Other 05-01-2023 11:40-0500 Systolic blood pressure 136 mm[Hg] Stephanie Trammelloroge Other [facility] 04-12-2023 11:44-0500 Body temperature 98.7 [degF] MD Shilpa Lewis Work Phone: [facility] 04-12-2023 11:44-0500 Diastolic blood pressure 69 mm[Hg] MD Shilpa Lewis Work Phone: [facility] 04-12-2023 11:44-0500 Heart rate 82 /min MD Shilpa Lewis Work Phone: [facility] 04-12-2023 11:44-0500 Respiratory rate 18 /min MD Shilpa Lewis Work Phone: [facility] 04-12-2023 11:44-0500 SaO2% (BldA) [Mass fraction] 95 % MD Shilpa Lewis Work Phone: [facility] 04-12-2023 11:44-0500 Systolic blood pressure 113 mm[Hg] MD Shilpa Lewis Work Phone: [facility] 04-12-2023 06:00-0500 Body weight 88.7 kg MD Shilpa Lewis Work Phone: [facility] 04-12-2023 04:33-0500 Inhaled oxygen concentration 21 % MD Shilpa Lewis Work Phone: [facility] 04-10-2023 10:18-0500 Body height 165.1 cm MD Shilpa Lewis Work Phone: [facility] Encounters Encounter Date Encounter Type Care Provider Facility Start: 07-09-2024 End: 07-10-2024 Refill Nelida Aichholz BUSINESS OFFICE SPECIALIST Work Phone: [facility] Comment on above: Tobacco user Start: 06-16-2024 End: 06-16-2024 Refill Nelida Aichholz BUSINESS OFFICE SPECIALIST Work Phone: [facility] Comment on above: Tobacco user (Primar y Dx) Herpes labialis (Cassie jimmy Dx) Start: 06-12-2024 End: 06-12-2024 Refill Nelida Aichholz BUSINESS OFFICE SPECIALIST Work Phone: [facility] Comment on above: URI, acute Start: 06-08-2024 End: 06-08-2024 Bamboo flowsheet Nelida Aichholz BUSINESS OFFICE SPECIALIST Work Phone: [facility] Start: 06-08-2024 End: 06-08-2024 Bamboo flowsheet Nelida Aichholz BUSINESS OFFICE SPECIALIST Work Phone: [facility] Start: 06-08-2024 End: 06-08-2024 Office outpatient visit 25 minutes Nelida Aichholz BUSINESS OFFICE SPECIALIST Work Phone: [facility] Comment on above: Type 2 diabetes gerald itus with diabetic polyneuropathy (CMS/HCC) (Primary Dx); Unspecified systolic (congestive) heart failure (CMS/HCC); Obesity with body mass index (BMI) of 30.0 to 39.9; Anxiety; Type 2 diabetes mellitus with hyperglycemia, without long-term current use of insulin (CMS/HCC); Tobacco user; Family history of cancer Start: 06-08-2024 End: 06-08-2024 ambulatory NELIDA AICHHOLZ Not Available Start: 06-01-2024 End: 06-01-2024 Refill Nelida Aichholz BUSINESS OFFICE SPECIALIST Work Phone: [facility] Comment on above: Type 2 diabetes gerald itus with hyperglycemia, without long-term current use of insulin ([facility]) Start: 05-28-2024 End: 05-28-2024 Refill Nelida Aichholz BUSINESS OFFICE SPECIALIST Work Phone: [facility] Comment on above: Mixed hyperlipidemia (CMS/HCC) Start: 05-21-2024 End: 05-21-2024 Refill Nelida Aichholz BUSINESS OFFICE SPECIALIST Work Phone: [facility] Comment on above: URI, acute (Primary Dx) Start: 05-04-2024 End: 05-04-2024 Refill Nelida Aichholz BUSINESS OFFICE SPECIALIST Work Phone: [facility] Comment on above: Mixed hyperlipidemia (CMS/[facility]) (Primary Dx) Start: 05-01-2024 End: 05-01-2024 Clinisync Result Encounter Nelida Aichholz BUSINESS OFFICE SPECIALIST Work Phone: [facility] External Department Unsolicited Start: 05-01-2024 End: 05-01-2024 Clinisync Result Encounter Nelida Aichholz BUSINESS OFFICE SPECIALIST Work Phone: [facility] External Department Unsolicited Start: 05-01-2024 End: 05-01-2024 Refill Nelida Aichholz BUSINESS OFFICE SPECIALIST Work Phone: [facility] Comment on above: Type 2 diabetes gerald itus with hyperglycemia, without long-term current use of insulin ([facility]); Anxiety Start: 04-27-2024 End: 04-27-2024 Bamboo flowsheet Nelida Aichholz BUSINESS OFFICE SPECIALIST Work Phone: [facility] Start: 04-27-2024 End: 04-27-2024 Bamboo flowsheet Nelida Aichholz BUSINESS OFFICE SPECIALIST Work Phone: [facility] Start: 04-27-2024 End: 04-27-2024 Office outpatient visit 25 minutes Nelida Aichholz BUSINESS OFFICE SPECIALIST Work Phone: [facility] Comment on above: Type 2 diabetes gerald itus with hyperglycemia, without long-term current use of insulin ([facility]/HCC) (Primary Dx); PIPPA (obstructive sleep apnea); Systolic heart failure, unspecified HF chronicity (CMS/HCC); Essential (primary) hypertension ([facility]/HCC); Obesity with body mass index (BMI) of 30.0 to 39.9; Hypothyroidism (acquired) ([facility]); Tobacco user; Anxiety; Diabetic polyneuropathy associated with type 2 diabetes mellitus ([facility]) Start: 04-27-2024 End: 04-27-2024 ambulatory NELIDA AICHHOLZ Not Available Start: 04-24-2024 End: 04-24-2024 ambulatory [facility] Facility:[facility] Start: 04-12-2024 End: 04-12-2024 Refill Nelida Aichholz BUSINESS OFFICE SPECIALIST Work Phone: [facility] Comment on above: Type 2 diabetes gerald itus with hyperglycemia, without long-term current use of insulin ([facility]) Start: 03-26-2024 End: 03-26-2024 Refill Nelida Aichholz BUSINESS OFFICE SPECIALIST Work Phone: [facility] Comment on above: Other hemorrhoids (P rimary Dx); Nausea and vomiting, unspecified vomiting type Start: 03-18-2024 End: 03-18-2024 ambulatory [facility] Work Phone: Start: 03-18-2024 End: 03-18-2024 Patient encounter procedure [facility] Work Phone: Start: 03-08-2024 End: 03-08-2024 Refill Nelida Aichholz BUSINESS OFFICE SPECIALIST Work Phone: [facility] Comment on above: Acute heart failure, unspecified heart failure type (CMS/HCC); Essential (primary) hypertension ([facility]); Coronary artery disease involving [place] coronary artery of [place] heart with angina pectoris ([facility]); Mixed hyperlipidemia ([facility]) Start: 02-18-2024 End: 02-18-2024 Refill Nelida Aichholz BUSINESS OFFICE SPECIALIST Work Phone: [facility] Comment on above: Nausea and vomiting, unspecified vomiting type (Primary Dx) Start: 02-17-2024 End: 02-17-2024 Refill Nelida Aichholz BUSINESS OFFICE SPECIALIST Work Phone: [facility] Comment on above: Herpes zoster withou t complication (Primary Dx) Start: 01-27-2024 End: 01-27-2024 Clinisync Result Encounter Nelida Aichholz BUSINESS OFFICE SPECIALIST Work Phone: [facility] External Department Unsolicited Start: 01-27-2024 End: 01-27-2024 Clinisync Result Encounter Nelida Aichholz BUSINESS OFFICE SPECIALIST Work Phone: [facility] External Department Unsolicited Start: 01-23-2024 End: 01-23-2024 Bamboo flowsheet Nelida Aichholz BUSINESS OFFICE SPECIALIST Work Phone: [facility] Start: 01-23-2024 End: 01-23-2024 Bamboo flowsheet Nelida Aichholz BUSINESS OFFICE SPECIALIST Work Phone: [facility] Start: 01-23-2024 End: 01-23-2024 Office outpatient visit 25 minutes Nelida Aichholz BUSINESS OFFICE SPECIALIST Work Phone: [facility] Comment on above: Type 2 diabetes gerald itus with hyperglycemia, without long-term current use of insulin (CMS/HCC) (Primary Dx); Essential (primary) hypertension (CMS/HCC); Acute cystitis without hematuria Start: 01-23-2024 End: 01-23-2024 ambulatory NELIDA AICHHOLZ Not Available Start: 12-25-2023 End: 12-25-2023 Patient encounter procedure [facility] Work Phone: Start: 11-11-2023 End: 11-11-2023 ambulatory MARYELLEN SAUCEDO Not Available Start: 09-18-2023 End: 09-18-2023 ambulatory MD Shilpa Lewis Work Phone: [facility] Work Phone: Start: 09-18-2023 End: 09-18-2023 Patient encounter procedure MD Shilpa Lewis Work Phone: [facility] Work Phone: Start: 09-10-2023 End: 09-10-2023 ambulatory NELIDA AICHHOLZ Not Available Start: 07-24-2023 End: 07-24-2023 ambulatory MD Shilpa Lewis Work Phone: [facility] Work Phone: Start: 07-24-2023 End: 07-24-2023 Patient encounter procedure MD Shilpa Lewis Work Phone: [facility] Work Phone: Start: 07-12-2023 End: 07-12-2023 Patient encounter procedure MD Shilpa Lewis Work Phone: [facility] Work Phone: Start: 07-12-2023 End: 07-12-2023 ambulatory MD Shilpa Lewis Work Phone: [facility] Work Phone: Start: 07-11-2023 End: 07-11-2023 ambulatory NELIDA AICHHOLZ Not Available Start: 07-11-2023 End: 07-11-2023 Office outpatient visit 25 minutes Nelida Aichholz BUSINESS OFFICE SPECIALIST Work Phone: [facility] Comment on above: Type 2 diabetes gerald itus with hyperglycemia, without long-term current use of insulin (CMS/HCC) (Primary Dx); Obesity with body mass index (BMI) of 30.0 to 39.9; Tobacco user; Essential (primary) hypertension (CMS/HCC); Acute heart failure, unspecified heart failure type (CMS/HCC); Anxiety Start: 07-11-2023 Bamboo flowsheet Nelida Aichholz BUSINESS OFFICE SPECIALIST Work Phone: [facility] Start: 07-11-2023 Bamboo flowsheet Nelida Aichholz BUSINESS OFFICE SPECIALIST Work Phone: [facility] Start: 07-06-2023 Clinisync Result Encounter Nelida Ambrosio BUSINESS OFFICE SPECIALIST Work Phone: [facility] Unsolicited Start: 07-06-2023 Clinisync Result Encounter Nelida Ambrosio BUSINESS OFFICE SPECIALIST Work Phone: [facility] Unsolicited Start: 06-11-2023 End: 06-11-2023 ambulatory Stephanie Kee Other [employer] Other Start: 06-11-2023 Telephone encounter Stephanie Davis [employer] Start: 06-10-2023 End: 06-10-2023 ambulatory Stephanie Sweet Other [employer] Other Start: 06-10-2023 Telephone encounter Stephanie Davis Cardiology Start: 05-08-2023 End: 05-08-2023 ambulatory Stephanie Sweet Other [employer] Other Start: 05-08-2023 Telephone encounter Stephanie Davis Cardiology Start: 05-01-2023 End: 05-01-2023 ambulatory Stephanie Sweet Other [employer] Other Start: 05-01-2023 Office outpatient vi sit 25 minutes Stephanie Sweet [facility] Start: 05-01-2023 End: 05-01-2023 Patient encounter procedure MD Shilpa Lewis Work Phone: [facility] Work Phone: Start: 04-10-2023 End: 04-12-2023 Evaluation and management of inpatient MD Shilpa Lewis Work Phone: [facility] [place] [employer] Work Phone: Start: 01-04-2022 End: 01-05-[address] SHILPA LEWIS Facility:H1 Procedures Date Procedure Procedure Detail Performing Clinician Start: 05-01-2024 ALL LIPID PROFILE (FASTING) Nelida Aichholz BUSINESS OFFICE SPECIALIST Work Phone: Start: 05-01-2024 ALL THYROID STIM HORMONE Nelida Aichholz BUSINESS OFFICE SPECIALIST Work Phone: Start: 05-01-2024 [facility] CMP (CMP) (FOR [facility] USE) Nelida Aichholz BUSINESS OFFICE SPECIALIST Work Phone: Start: 04-27-2024 Hemoglobin glycosyla davidson a1c Nelida Aichholz BUSINESS OFFICE SPECIALIST Work Phone: Start: 01-27-2024 [facility] MICROALB CREAT R ATIO RANDOM Nelida Aichholz BUSINESS OFFICE SPECIALIST Work Phone: Start: 01-27-2024 [facility] UA (CLEAN/CATCH) MICROSCOPIC IF INDICATE Nelida Aichholz BUSINESS OFFICE SPECIALIST Work Phone: Start: 12-24-2023 Colonoscopy Nelida Aichh olz BUSINESS OFFICE SPECIALIST Work Phone: Start: 11-07-2023 Mammography Nelida Aichh olz BUSINESS OFFICE SPECIALIST Work Phone: Start: 07-06-2023 ALL LIPID PROFILE (FASTING) Nelida Aichholz BUSINESS OFFICE SPECIALIST Work Phone: Start: 07-06-2023 [facility] ALT Nelida Aichh olz BUSINESS OFFICE SPECIALIST Work Phone: Start: 07-06-2023 [facility] AST Nelida Aichh olz BUSINESS OFFICE SPECIALIST Work Phone: Start: 04-11-2023 MD Shilpa Lewis [...] Work Phone: Start: 09-19-2020 Mammography Nelida lindsay BUSINESS OFFICE SPECIALIST Work Phone: Start: 10-12-2015 General examination of patient Stephanie Sweet Other Viral screening Stephanie cullen Other Plan of Treatment Date Care Activity Detail Author Start: 12-23-2033 Screening for malign ant neoplasm of colon [facility] Start: 09-27-2025 Screening for malign ant neoplasm of cervix [facility] Start: 01-26-2025 Urine screening for protein Diabetes: Urine Protein Screening [facility] Start: 11-06-2024 Screening for malign ant neoplasm of breast Mammogram [facility] Start: 07-28-2024 Hemoglobin A1c measurement Mary betes: Hemoglobin A1C [facility] Start: 07-05-2024 End: 05-04-2025 Alanine aminotransferase [Enzymatic activity/volume] in Serum or Plasma ALT Lab Routine Mixed hyperlipidemia (CMS/HCC) Expected: 07/05/2024 (Approximate), Expires: 05/04/2025 [facility] Comment on above: Expected: 07/05/2024 (Approximate), Expires: 05/04/2025 Start: 07-05-2024 End: 05-04-2025 Aspartate aminotransferase [Enzymatic activity/volume] in Serum or Plasma AST Lab Routine Mixed hyperlipidemia (CMS/HCC) Expected: 07/05/2024 (Approximate), Expires: 05/04/2025 [facility] Comment on above: Expected: 07/05/2024 (Approximate), Expires: 05/04/2025 Start: 07-05-2024 End: 05-04-2025 Lipid 1996 panel - Serum or Plasma Lipid panel Lab Routine Mixed hyperlipidemia (CMS/HCC) Expected: 07/05/2024 (Approximate), Expires: 05/04/2025 [facility] Work Phone: Comment on above: Expected: 07/05/2024 (Approximate), Expires: 05/04/2025 Start: 06-08-2024 End: 06-08-2024 Patient encounter procedure [facility] Comment on above: Obesity with body ma ss index (BMI) of 30.0 to 39.9 (Primary Dx); Type 2 diabetes mellitus with diabetic polyneuropathy ([facility]); Unspecified systolic (congestive) heart failure ([facility]); Anxiety; Type 2 diabetes mellitus with hyperglycemia, without long-term current use of insulin ([facility]); Tobacco user Start: 04-28-2024 Hemoglobin A1c measurement Mary betes: Hemoglobin A1C [facility] Start: 04-27-2024 End: 04-27-2025 Comprehensive metabolic 2000 panel - Serum or Plasma Comprehensive metabolic panel Lab Routine Essential (primary) hypertension ([facility]) Type 2 diabetes mellitus with hyperglycemia, without long-term current use of insulin ([facility]) Expected: 04/27/2024 (Approximate), Expires: 04/27/2025 [facility] Comment on above: Expected: 04/27/2024 (Approximate), Expires: 04/27/2025 Start: 04-27-2024 End: 04-27-2025 Lipid 1996 panel - Serum or Plasma Lipid panel Lab Routine Type 2 diabetes mellitus with hyperglycemia, without long-term current use of insulin ([facility]) Hypothyroidism (acquired) ([facility]) Expected: 04/27/2024 (Approximate), Expires: 04/27/2025 [facility] Comment on above: Expected: 04/27/2024 (Approximate), Expires: 04/27/2025 Start: 04-27-2024 End: 04-27-2025 Thyrotropin [Units/volume] in Serum or Plasma TSH Lab Routine Hypothyroidism (acquired) ([facility]) Expected: 04/27/2024 (Approximate), Expires: 04/27/2025 [facility] Work Phone: Comment on above: Expected: 04/27/2024 (Approximate), Expires: 04/27/2025 Start: 04-27-2024 End: 04-27-2025 Thyroxine (T4) free [Mass/volume] in Serum or Plasma T4, free Lab Routine Hypothyroidism (acquired) ([facility]) Expected: 04/27/2024 (Approximate), Expires: 04/27/2025 [facility] Comment on above: Expected: 04/27/2024 (Approximate), Expires: 04/27/2025 Start: 04-27-2024 End: 04-27-2024 Patient encounter procedure 04/27/2024 11:45 AM EST Office Visit [facility] [address] [place] [phone] Nelida Ambrosio NP [address] [place] [phone] PIPPA (obstructive sleep apnea) (Primary Dx); Systolic heart failure, unspecified HF chronicity (CMS/HCC); Essential (primary) hypertension (CMS/HCC); Type 2 diabetes mellitus with hyperglycemia, without long-term current use of insulin (CMS/HCC); Obesity with body mass index (BMI) of 30.0 to 39.9; Hypothyroidism (acquired) (CMS/HCC); Tobacco user; Anxiety [facility] Comment on above: PIPPA (obstructive sle ep apnea) (Primary Dx); Systolic heart failure, unspecified HF chronicity (CMS/HCC); Essential (primary) hypertension (CMS/HCC); Type 2 diabetes mellitus with hyperglycemia, without long-term current use of insulin (CMS/HCC); Obesity with body mass index (BMI) of 30.0 to 39.9; Hypothyroidism (acquired) (CMS/HCC); Tobacco user; Anxiety Start: 04-23-2024 End: 04-23-2024 Patient encounter procedure 04/23/2024 11:45 AM EST Office Visit [facility] [address] [place] [phone] Nelida Ambrosio NP [address] [place] [phone] [facility] Start: 01-23-2024 End: 01-22-2025 Basic metabolic 1998 panel - Serum or Plasma Basic metabolic panel Lab Routine Type 2 diabetes mellitus with hyperglycemia, without long-term current use of insulin (CMS/HCC) Expected: 01/23/2024 (Approximate), Expires: 01/22/2025 [facility] Work Phone: Comment on above: Expected: 01/23/2024 (Approximate), Expires: 01/22/2025 Start: 01-23-2024 End: 01-22-2025 Hemoglobin A1c/Hemoglobin.total in Blood Hemoglobin A1c Lab Routine Type 2 diabetes mellitus with hyperglycemia, without long-term current use of insulin (CMS/HCC) Expected: 01/23/2024 (Approximate), Expires: 01/22/2025 [facility] Comment on above: Expected: 01/23/2024 (Approximate), Expires: 01/22/2025 Start: 01-23-2024 End: 01-22-2025 Microalbumin/Creatinine panel in random Urine Microalbumin / creatinine, urine ratio Lab Routine Type 2 diabetes mellitus with hyperglycemia, without long-term current use of insulin (CMS/HCC) Expected: 01/23/2024 (Approximate), Expires: 01/22/2025 [facility] Comment on above: Expected: 01/23/2024 (Approximate), Expires: 01/22/2025 Start: 01-23-2024 End: 01-22-2025 Urinalysis complete panel - Urine Urinalysis with reflex microscopic (clean catch) Lab Routine Type 2 diabetes mellitus with hyperglycemia, without long-term current use of insulin (CMS/HCC) Expected: 01/23/2024 (Approximate), Expires: 01/22/2025 [facility] Comment on above: Expected: 01/23/2024 (Approximate), Expires: 01/22/2025 Start: 01-23-2024 End: 01-23-2024 Patient encounter procedure 01/23/2024 11:45 AM EDT Office Visit [facility] [address] [place] [address] Nelida Ambrosio NP [address] [place] [address] Essential (primary) hypertension (CMS/HCC) (Primary Dx); Acute cystitis without hematuria; Type 2 diabetes mellitus with hyperglycemia, without long-term current use of insulin (CMS/HCC) [facility] Comment on above: Essential (primary) hypertension (CMS/HCC) (Primary Dx); Acute cystitis without hematuria; Type 2 diabetes mellitus with hyperglycemia, without long-term current use of insulin ([facility]) Start: 11-24-2023 Hemoglobin A1c measurement Mary betes: Hemoglobin A1C [facility] Start: 09-09-2023 End: 09-09-2023 Patient encounter procedure 09/09/2023 3:40 PM EDT Office Visit [facility] [address] [place] [address] Nelida Ambrosio NP [address] [place] [phone] [facility] Start: 08-02-2023 Hemoglobin A1c measurement Mary betes: Hemoglobin A1C [facility] Start: 08-02-2023 Screening for malign ant neoplasm of breast Mammogram [facility] Comment on above: Postponed from 09/19 (Other Medical Reasons) Start: 07-11-2023 End: 07-11-2023 Patient encounter procedure 07/11/2023 3:40 PM EST Office Visit [facility] [address] [place] [address] Nelida Ambrosio NP [address] [place] [phone] [facility] Start: 04-12-2023 [facility] Start: 04-10-2023 Hospital admission [facility] Start: 04-10-2023 Sleep disorder assessment [facility] Start: 02-01-2023 Influenza vaccination Influenza Vacc ine (#1) [facility] Start: 11-14-1995 Screening for malign ant neoplasm of cervix Pap Smear [facility] Start: 1993 Urine screening for protein Diabetes: Urine Protein Screening [facility] Start: 1984 Glaucoma screening Diabetes: R etinopathy Screening [facility] Start: 1974 Screening for malign ant neoplasm of colon [facility] Patient Education Coronary Angio plasty (DC) Coronary Stenting (DC) Angina (DC) Chest Pain (DC) Coronary Artery Disease (DC) Coronary artery disease in women Drug Eluting Stents [facility] Work Phone: Patient referral [facility] Work Phone: Payers Date Payer Category Payer Private Health Insurance [facility] [id number] 2023 Self-pay [id number] 2019 Private Health Insurance [id number] 1974 Unknown [id number] [id number] 1974 Unknown [id number] 2.16.84 [id number] 1974 Unknown [id number] 2.16.84 [id number] 1974 Unknown [id number] 2.16.84 [id number] 1974 Unknown [id number] 2.16.84 [id number] 1974 Unknown [id number] 2.16.84 [id number] 1974 Unknown [id number] 2.16.84 [id number] 1959 Private Health Insurance [facility] [id number] Unknown [id number] 2.16.8 [id number] Unknown [id number] [id number] Social History Date Type Detail Facility Start: 04-11-2023 End: 03-18-2024 Tobacco smoking status WIIS Smoker (finding) [facility] Start: 1975 Sex Assigned At Female F [facility] Start: 05-20-2023 End: 09-10-2023 Sex Assigned At [facility] Start: 05-20-2023 End: 06-08-2024 Tobacco smoking status WIIS Smokes tobacco daily [facility] History of tobacco use Cigarette Smoker [facility] Start: 05-20-2023 End: 09-10-2023 Cigarettes smoked current (pack per day) - Reported 0.5 [facility] Start: 05-20-2023 End: 06-08-2024 Tobacco use and exposure Smokeless tobacco non-user [facility] Start: 06-19-2023 End: 06-18-2024 Alcohol intake Ex-drinker (finding) [facility] Within [...] 05-20-2023 Alcohol Comment Pepsi:2 cups daily N [facility] Start: 1975 Sex Assigned At Not on file N [facility] Start: 09-18-2023 Tobacco smoking stat [facility] Ex-smoker (finding) [facility] Medical Equipment Procedure Code Equipment Code Equipment Origin al Text Equipment Identifier Dates CL STENT GARTH FRONTIER 3.5 X 15 FDA Start: 04-11-2023 [id number] Start: 04-17-2023 USE 1 DAILY [id number] Start: 04-17-2023 CL STENT GARTH FRONTIER 3.5 [...] Goals Date Patient Goal Desired Activity /State Personal health goal Functional Status Date Assessment Result Facility 04-12-2023 Functional status Patient at Baseline [facility] Work Phone: Mental Status Date Assessment Result Facility 04-12-2023 Cognitive function Cognitive Sta tus Patient at Baseline [facility] Work Phone: Clinical Notes 04-10-2023 to 06-16-2024 Nelida Ambrosio NP - 06/16/2024 8:39 AM Cleve Ambrosio NP - 05/21/2024 12:31 PM Cleve Ambrosio, DANICA - 04/27/2024 12:45 PM Cleve Ambrosio NP - 04/27/2024 11:45 AM ESTPatient Instructions Note Date & Type Note Facility 06-16-2024 History of Presen t illness Narrative Associated Problem(s): Tobacco user The patient has been advised of the risks of continued smoking: stroke, OR, all forms of cancer, lung disease, and . Options for quitting smoking include: cold turkey, hypnosis, acupuncture, nicotine replacement meds (gum, lozenges, and patches), Buproprion, and Varenicline. Would like to trial buproprion 06/16/24 script sent in, 1 pill daily for 3 days, then increase to twice a day. Start meds 1-2 weeks prior to quit date. If worsening in depression, dizziness, SI/HI contact office documented in this encounter [facility] 05-21-2024 History of Presen t illness Narrative Associated Problem(s): URI, acute Neg covid/flu test, symptoms 5 days, worsening, +wheeze, no fever, sinus congestion TM sm fluid, +tender sinus, lungs diminished no wheeze noted, RRR heart documented in this encounter [facility] 04-27-2024 History of Presen t illness Narrative Associated Problem(s): Diabetic polyneuropathy associated with type 2 diabetes mellitus (CMS/HCC) Will trial duloxetine Fu in 6 weeks [...] no compliance problems. Hypertensive end-organ damage includes CAD/OR and heart failure. Diabetes She presents for [...] being taken. She does not see a slipper maker.Eye exam is not current. 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 ([facility]) 05/09/2023 COVID-19 viremia Depression ([facility]) Diastasis recti Essential (primary) hypertension ([facility]) 05/09/2023 Eustachian salpingitis, left Hypertriglyceridemia ([facility]) hypertriglycerides Hypothyroidism (acquired) ([facility]) 05/09/2023 Left ankle swelling Mixed hyperlipidemia ([facility]) 05/09/2023 Obesity with body mass index (BMI) of 30.0 to 39.9 07/11/2023 PIPPA (obstructive sleep apnea) 05/08/2023 Right ovarian cyst Right-sided Pa's palsy Sinusitis, bacterial Toe pain, left Type 2 diabetes mellitus with hyperglycemia, without long-term current use of insulin ([facility]) 05/09/2023 Yeast infection of the vagina 04/29/2023 Past Surgical History: Procedure Laterality Date ADENOIDECTOMY 1982 SECTION, LOW TRANSVERSE 2004 CHOLECYSTECTOMY 2009 HYSTERECTOMY [...] hyperglycemia, without long-term current use of insulin ([facility]) - Primary Check blood sugars daily, notify [...] panel Comprehensive metabolic panel Essential (primary) hypertension ([facility]) Please check blood pressure daily and record DASH diet Limit caffeine Take medication as directed Contact office if chest pain, pressure, dizziness, shortness of breath, swelling legs Recommend slow position changes Continue current meds Relevant Orders Comprehensive metabolic panel Hypothyroidism (acquired) ([facility]) Continue with levothyroxine Relevant Orders TSH T4, [...] of the risks of continued smoking: stroke, OR, all forms of cancer, lung disease, and . Options for quitting smoking include: cold turkey, hypnosis, acupuncture, nicotine replacement meds (gum, lozenges, and patches), Buproprion, and Varenicline. At this time pt is encouraged to evaluate their goals for wanting to quit smoking, and reach out to provider when ready to start this process Systolic heart failure (CMS/HCC) Continue with cardiology Is on Entresto, as well as diuretic and b raina therapy Recommend daily weights, notify cardiology if more than 3 pound gain in 24 hours Recommend low sodium diet as well Diabetic polyneuropathy associated with type 2 diabetes mellitus (CMS/HCC) Will trial duloxetine Fu in 6 weeks [...] of the risks of continued smoking: stroke, OR, all forms of cancer, lung disease, and . Options for quitting smoking include: cold turkey, hypnosis, acupuncture, nicotine replacement meds (gum, lozenges, and patches), Buproprion, and Varenicline. At this time pt is encouraged to evaluate their goals for wanting to quit smoking, and reach out to provider when ready to start this process Associated Problem(s): Hypothyroidism (acquired) (CMS/HCC) Continue with levothyroxine Associated Problem(s): Obesity with [...] without long-term current use of insulin (CMS/HCC) Check blood sugars daily, notify if <70 [...] use, less fatigue documented in this encounter [facility] 04-27-2024 Instructions Nelida Ambrosio NP - 04/27/2024 11:45 AM EST We will increase ozempic to 1mg every 7 days, discontinue the 0.5mg dose Stop sertraline, and we will trial duloxetine 30mg daily (depression, anxiety, as well as diabetic nerve pain) documented in this encounter [facility] 02-17-2024 History of Presen t illness Narrative Associated Problem(s): Herpes zoster without complication Rash to right trapezius region, sl tender, noted for 2 days Examined felt to be zoster, will treat with antiviral documented in this encounter [facility] 01-23-2024 History of Presen t illness Narrative Associated Problem(s): Type 2 diabetes mellitus with hyperglycemia, without long-term current use of insulin ([facility]) Continue with farxiga at 10mg and metfromin Sugars are still trending above 170 fasting Interested in ozempic, no contraindications noted Will trial Fu in 3 months Check labs Associated Problem(s): Acute cystitis without hematuria Resolved Needs urine for diabetes Associated Problem(s): Essential (primary) hypertension (CMS/HCC) No changes in meds at this time Fasting BS 175 Images from the original note were not included. Lorraine Mitchell is a 48 y.o. female presents with chief complaint of No chief complaint on file. HPI: Sxs of UTI have resolved Diabetes She presents for her follow-up diabetic visit. She has type 2 diabetes mellitus. Her disease course has been improving. There are no hypoglycemic associated symptoms. Pertinent negatives for hypoglycemia include no dizziness, headaches, nervousness/anxiousness, seizures or tremors. Pertinent negatives for diabetes include no blurred vision, no chest pain, no fatigue, no foot paresthesias, no polydipsia, no polyphagia, no polyuria, no visual change, no weakness and no weight loss. There are no hypoglycemic complications. Symptoms are stable. Diabetic complications include heart disease. Pertinent negatives for diabetic complications include no nephropathy or peripheral neuropathy. Risk factors for coronary artery disease include diabetes mellitus, dyslipidemia, hypertension, obesity, sedentary lifestyle and tobacco exposure. Current diabetic treatment includes oral agent (dual therapy). She has not had a previous visit with a dietitian. She rarely participates in exercise. Her overall blood glucose range is 180-200 mg/dl. An KIMMY inhibitor/angiotensin II receptor raina is being taken. SUBJECTIVE: MEDICATIONS: Current Outpatient Medications Medication Instructions Alcohol Swabs ([facility] Alcohol Prep Pads) 70 % pads USE 1 PER DAY atorvastatin (LIPITOR) 80 mg, Oral, Nightly Blood Glucose Monitoring Suppl (True Metrix Meter) w/Device kit USE 1 DAILY Brilinta 90 mg, Oral, 2 times daily busPIRone (BUSPAR) 7.5 mg, Oral, 2 times daily carvedilol (COREG) 6.25 mg, Oral, 2 times daily with meals [facility]S Aspirin Low Dose 81 mg, Oral, Daily [facility] Lancets Micro Thin 33G misc USE 1 A DAY dapagliflozin (FARXIGA) 10 mg, Oral, Daily Entresto 49-51 MG tablet 1 tablet, Oral, 2 times daily isosorbide mononitrate ER (IMDUR) 30 mg, Oral, Daily levothyroxine (SYNTHROID, LEVOXYL) 25 mcg, Oral, Daily before breakfast metFORMIN (GLUCOPHAGE) 1,000 mg, Oral, 2 times daily with meals nicotine (Nicoderm CQ) 14 MG/24HR patch 1 patch, Transdermal, Every 24 hours nitrofurantoin (macrocrystal-monohydrate) (MACROBID) 100 mg, Oral, 2 times daily nitroglycerin (NITROSTAT) 0.4 mg, Sublingual, Every 5 min PRN Ozempic (0.25 or 0.5 MG/DOSE) 0.25 mg, Subcutaneous, Every 7 days, 0.25mg once a week for 4 weeks, then increase to 0.5mg once a week sertraline (ZOLOFT) 50 mg, Oral, Daily spironolactone (ALDACTONE) 25 mg, Oral, Daily tiZANidine (ZANAFLEX) 4 mg, Oral, Nightly PRN True Metrix Blood Glucose Test test strip USE 1 DAILY ALLERGIES: No Known Allergies REVIEW OF SYMPTOMS: Review of Systems Constitutional: Negative for appetite change, chills, fatigue, fever and weight loss. HENT: Negative for congestion, ear pain and sore throat. Eyes: Negative for blurred vision, pain, discharge, redness and visual disturbance. Respiratory: Negative for cough, shortness of breath and wheezing. Cardiovascular: Negative for chest pain, palpitations and leg swelling. Gastrointestinal: Negative for abdominal pain, blood in stool, constipation, diarrhea, nausea and vomiting. Genitourinary: Negative for difficulty urinating, dysuria and frequency. Musculoskeletal: Negative for arthralgias, back pain, joint swelling and myalgias. Skin: Negative for rash and wound. Neurological: Negative for dizziness, tremors, seizures, syncope, weakness and headaches. Psychiatric/Behavioral: Negative for behavioral problems, self-injury and suicidal ideas. The patient is not nervous/anxious. Hematological: Does not bruise/bleed easily. Endocrine: Negative for polydipsia, polyphagia and polyuria. Allergic/Immunologic: Negative for environmental allergies and food allergies. PAST MEDICAL HISTORY Past Medical History: Diagnosis Date Acute heart failure ([facility]) 05/09/2023 Acute hemorrhoid Anxiety 05/09/2023 Aphthous ulcer Cold sore Coronary artery disease involving united [place] coronary artery of [place] heart with angina pectoris ([facility]) 05/09/2023 COVID-19 viremia Depression ([facility]) Diastasis recti Essential (primary) hypertension ([facility]) 05/09/2023 Eustachian salpingitis, left Hypertriglyceridemia ([facility]) hypertriglycerides Hypothyroidism (acquired) ([facility]) 05/09/2023 Left ankle swelling Mixed hyperlipidemia ([facility]) 05/09/2023 Obesity with body mass index (BMI) of 30.0 to 39.9 07/11/2023 PIPPA (obstructive sleep apnea) 05/08/2023 Right ovarian cyst Right-sided Pa's palsy Sinusitis, bacterial Toe pain, left Type 2 diabetes mellitus with hyperglycemia, without long-term current use of insulin ([facility]) 05/09/2023 Yeast infection of the vagina 04/29/2023 [...] in her mother. OBJECTIVE: Visit Vitals BP 112/76 (BP Location: Left arm, Patient Position: Sitting, BP Cuff Size: Adult long) Pulse 78 Temp 98.6 F (Temporal) Resp 18 Ht 5' 5 Wt 196 lb SpO2 97% BMI 32.62 kg/m Smoking Status Every Day BSA 2.02 m Physical Exam Vitals and nursing note [...] Normal pulses. Heart sounds: Normal heart sounds. Pulmonary: Effort: Pulmonary effort is normal. Breath [...] without long-term current use of insulin (CMS/HCC) Continue with farxiga at 10mg and metfromin Sugars are still trending above 170 fasting Interested in ozempic, no contraindications noted Will trial Fu in 3 months Check labs Relevant Medications Semaglutide,0.25 or 0.5MG/DOS, (Ozempic, 0.25 or 0.5 MG/DOSE,) 2 MG/3ML solution pen-injector Other Relevant Orders Basic metabolic panel Hemoglobin A1c Urinalysis with reflex microscopic (clean catch) Microalbumin / creatinine, urine ratio Essential (primary) hypertension (CMS/HCC) - Primary No changes in meds at this time Acute cystitis without hematuria Resolved Needs urine for diabetes documented in this encounter [facility] 07-24-2023 Evaluation note Authored July 24, 2023 1:06pm Ms Mitchell is a a 47 yr old fe male, seen at [facility] on 04/10/2023 for NSTEMI. Cath and PCI [...] proximal LAD with 3.5 x 15 mm [place] NILSA. RCA was deemed to be TRAY SETTER. Assessment: 2v CAD s/p PCI to LAD (presented with NSTEMI) Ischemic cardiomyopathy/Systolic heart failure. Euvolemic Hypertension Hyperlipidemia Diabetes type 2 Active tobacco use Family history of premature CAD Morbid obesity PIPPA not compliant with CPAP Plan: - [facility] 04/11/2023 consistent with severe two-vessel CAD-70% proximal LAD and 100% proximal RCA. Status post PCI to proximal LAD with 3.5 x 15 mm [place] NILSA. RCA was deemed to be TRAY SETTER. - Repeat ECHO 07/12/23 showed improved EF [...] with cardiac rehab. -Follow-up in 2 months. [facility] Work Phone: 1(249) 304-404102-08-2024 History of Present illness Narrative* Nelida Ambrosio [...] hyperglycemia, without long-term current use of insulin ([facility]) Will add farxiga 5mg daily, pt reports she just called cardiology they stated that would be fine tostart #3 boxes for Farxiga 10mg given instructions are 1/2 pill daily, lot # [id number] * ZANE GRIGGS - 07/11/2023 3:40 PM EST Echo tomorrow Marketing Development Specialist on 07/24 Sleep study 07/22 Pt asking [...] no compliance problems. Hypertensive end-organ damage includes CAD/OR, heart failure andleft ventricular hypertrophy. Diabetes She [...] Medical History: Diagnosis Date Acute heart failure ([facility]) 05/09/2023 Acute hemorrhoid Anxiety 05/09/2023 Aphthous ulcer Cold sore Coronary artery disease involving united [place] coronary artery of [place] heart with angina pectoris ([facility]) 05/09/2023 COVID-19 viremia Depression ([facility]) Diastasis recti Essential (primary) hypertension ([facility]) 05/09/2023 Eustachian salpingitis, left Hypertriglyceridemia ([facility]) hypertriglycerides Hypothyroidism (acquired) ([facility]) 05/09/2023 Left ankle swelling Mixed hyperlipidemia ([facility]) 05/09/2023 Obesity with body mass index (BMI) of 30.0 to 39.9 07/11/2023 PIPPA (obstructive sleep apnea) 05/08/2023 Right ovarian cyst Right-sided Pa's palsy Sinusitis, bacterial Toe pain, left Type 2 diabetes mellitus with hyperglycemia, without long-term current use of insulin ([facility]) 05/09/2023 Yeast infection of the vagina 04/29/2023 Past Surgical History: Procedure Laterality Date ADENOIDECTOMY 1982 SECTION, LOW TRANSVERSE 2004 CHOLECYSTECTOMY 2009 HYSTERECTOMY [...] instructions are 1/2 pill daily, lot # [id number] Essential (primary) hypertension (CMS/HCC) - Primary Acute heart failure (CMS/HCC) Continue with cardiology Has echo tomorrow Anxiety Doing ok on sertraline, we will increase buspirone to 7.5mg BID Fu in 2 months Relevant Medications busPIRone (Buspar) 7.5 MG tablet Obesity with body mass index (BMI) of 30.0 to 39.9 [id number] Evaluation note* Encounter Date Diagnosis Assessment Notes Treatment Notes Treatment Clinical Notes May, Ischemic cardiomyopathy (ICD-10 - I25.5) [employer] Other 11-29-2023 Evaluation note* Encounter Date Diagnosis Assessment Notes Treatment Notes Treatment Clinical Notes Apr, History of non-ST elevation myocardial infarction (NSTEMI) (ICD-10 - I25.2) Ms Mitchell is a a 47 yr old female, seen at [facility] on 04/10/2023 for NSTEMI. Cath and PCI to the LAD was successful. Unsuccessful attempt to cross the RCA lesion. HX of DM type 2, HTN, PIPPA, hyperlipidemia. ECHO 04/10/2023: EF of 25-30% with grade 1 diastolic dysfunction. Trace MR, trace TR. [facility] 04/11/2023 consistent with severe two-vessel CAD-70% proximal LAD and 100% proximal RCA. Status post PCI to proximal LAD with 3.5 x 15 mm [place] NILSA. RCA was deemed to be TRAY SETTER. Assessment: 2v CAD s/p PCI to LAD (presented with NSTEMI) Systolic heart failure. Euvolemic Hypertension Hyperlipidemia Diabetes type 2 Active tobacco use Family history of premature CAD Morbid obesity PIPPA not compliant with CPAP Plan: - [facility] 04/11/2023 consistent with severe two-vessel CAD-70% proximal LAD and 100% proximal RCA. Status post PCI to proximal LAD with 3.5 x 15 mm [place] NILSA. RCA was deemed to be TRAY SETTER. -Continue DAPT-aspirin 81 mg daily plus Brilinta [...] I25.5) Apr, Post PTCA (ICD-10 - Z98.61) [facility] Other 11-10-2023 Hospital Discharge instructions Additional Instructions [...] doctor or pharmacist, without first calling the bailer operators supervisor who implanted the stent. If you require [...] weight lifting, stair steppers, etc. until the bailer operators supervisor approves these activities. Check with the bailer operators supervisor on your first follow-up visit. CALL YOUR PHYSICIAN at [phone]: -If bleeding should occur from the catheter insertion site- apply pressure to the site then immediately call us. -Report any fever, redness, drainage, increased swelling, or firmness at the catheter insertion site. Some bruising or slight swelling may be present at the time of discharge. -Should arm or leg become cold, numb, white, or blue, contact the bailer operators supervisor immediately. -IF you should experience episodes of [...] is recommended. Please call Central Scheduling at [phone] to schedule your appointment.] The attending bailer operators supervisor or [facility] nurse clinician should provide you with specific instructions regarding activity, diet, medications, and further follow up for you. Follow the medication instructions provided on your discharge. If the dosages and instructions on this sheet differ from the dosage and instructions on the bottle, follow the instructions on the bottle. [facility] is not responsible for incorrect prescription information provided by the patient during their visit. Do not stop your medications without consulting your health care provider. Please take the list with you to your next doctor's appointment.[facility] Work Phone: 1(107) 871-629311-10-2023 Discharge summary Author Florentino Kenyon [facility] April 12, 2023 9:01am Note Date/Time April 12, 2023 9:01am [facility] [address] [place] [address] Discharge Summary Signed Patient: Lorraine Mitchell MR#: [id number] : 1975 Acct:[id number] Age/Sex: 47 / F Adm Date: 3 Loc: 4 Room: 0N9211-[address]: Florentino Kenyon MD Copies to: [...] stented with a 3.5 x 15 mm [place] stent at 18 john with a residual [...] doctor or pharmacist, without first calling the bailer operators supervisor who implanted the stent. If you require [...] weight lifting, stair steppers, etc. until the bailer operators supervisor approves these activities. Check with the bailer operators supervisor on your first follow-up visit. CALL YOUR PHYSICIAN at [phone]: -If bleeding should occur from the catheter insertion site- apply pressure to the site then immediately call us. -Report any fever, redness, drainage, increased swelling, or firmness at the catheter insertion site. Some bruising or slight swelling may be present at thetime of discharge. -Should arm or leg become cold, numb, white, or blue, contact the bailer operators supervisor immediately. -IF you should experience episodes of [...] is recommended. Please call Central Scheduling at [phone] to schedule your appointment.] The attending bailer operators supervisor or [facility] nurse clinician should provide you with specific instructions regarding activity, diet, medications, and further follow up for you. Follow the medication instructions provided on your discharge. If the dosages and instructions on this sheet differ from the dosage and instructions on the bottle, follow the instructions on the bottle. [facility] is not responsible for incorrect [...] <Electronically signed by Florentino Kenyon MD> 04/12/23900 [facility] Work Phone: 1(371) 767-660011-09-2023 Consult note Author W Diego [facility] April 11, 2023 6:12pm Note Date/Time April 11, 2023 6 :12pm [facility] [address] [place] [address] Cardiology Consult Note Signed Patient: Lorraine Mitchell MR#: [id number] : 1975 Acct:[id number] Age/Sex: 47 / F Adm Date: 3 Loc: 4 Room: 4S6611-7 Type: ADM IN Attending Dr: Florentino Kenyon MD Copies to: MD Shilpa Skinner MD W Scott Sheldon, DO~ Cardiology HPI History of Present Illness Consult Date: 04/11/23 Reason for Consult: Non-ST elevation OR, two-vessel ASHD, ischemic cardiomyopathy HPI: Ms. Mitchell [...] alsohad premature CAD. Patient initially presented to [facility] where troponin was positive: 248-256. BNP elevated at 1327. EKG showed sinus tachycardia. Echo today shows EF of 25-30% with grade 1 diastolic dysfunction. Trace MR, trace TR. Troponin trend on arrival [phone] Catheterization was reviewed with primary bailer operators supervisor, there is appears to be athrombotic occlusion of the proximal dominant RCA, and moderate 70% disease of the proximal LAD. We will proceed with PCI of the LAD, and attempted crossing of what appears to be a thrombotic occlusion of the RCA. [facility] Medical History (Updated 04/10/23 @ 11:06 [...] Lymph # (Auto) 3.2 3.0 (1.00-4.8) x10E3/uL [place] # (Auto) 0.4 0.5 (0.0-0.8) x10E3/uL Eos [...] Signed By: <Electronically signed by Magali Cortez, > 04/11/23 1812 [facility] Work Phone: 1([phone]) 765-100811-09-2023 Progress note Author Stephanie Sweet [facility] April 11, 2023 1:12pm Note Date/Time April 11, 2023 1 :09pm [facility] [address] [place] [address] Cardiology Progress Note Signed Patient: Lorraine Mitchell MR#: [id number] : 1975 Acct:[id number] Age/Sex: 47 / F Adm Date: 3 Loc: Room: [address] [place] [address] Type: ADM IN Attending Dr: Florentino Kenyon [...] alsohad premature CAD. Patient initially presented to [facility] where troponin was positive: 248-256. BNP elevated at 1327. EKG showed sinus tachycardia. Echo today shows EF of 25-30% with grade 1 diastolic dysfunction. Trace MR, trace TR. Interim history 04/11/2023: Troponin continues to uptrend 899-->2200. Reports minimal chest pain today. Heparin drip restarted last night. [facility] today Exam Physical Exam Vital Signs: [...] MPV Neut % (Auto) Lymph % (Auto) [place] % (Auto) Eos % (Auto) Baso % (Auto) Nucleat RBC Rel Count Neut # (Auto) Lymph # (Auto) [place] # (Auto) Eos # (Auto) Baso # [...] % (Auto) 56.6 Lymph % (Auto) 36.2 [place] % (Auto) 4.6 Eos % (Auto) 1.2 Baso % (Auto) 1.4 Nucleat RBC Rel Count 0.1 Neut # (Auto) 5.0 Lymph # (Auto) 3.2 [place] # (Auto) 0.4 Eos # (Auto) 0.1 [...] MPV Neut % (Auto) Lymph % (Auto) [place] % (Auto) Eos % (Auto) Baso % (Auto) Nucleat RBC Rel Count Neut # (Auto) Lymph # (Auto) [place] # (Auto) Eos # (Auto) Baso # [...] % (Auto) 59.4 Lymph % (Auto) 33.4 [place] % (Auto) 5.8 Eos % (Auto) 0.9 Baso % (Auto) 0.5 Nucleat RBC Rel Count 0.1 Neut # (Auto) 5.3 Lymph # (Auto) 3.0 [place] # (Auto) 0.5 Eos # (Auto) 0.1 [...] MPV Neut % (Auto) Lymph % (Auto) [place] % (Auto) Eos % (Auto) Baso % (Auto) Nucleat RBC Rel Count Neut # (Auto) Lymph # (Auto) [place] # (Auto) Eos # (Auto) Baso # [...] alsohad premature CAD. Patient initially presented to [facility] where troponin was positive: 248-256. BNP elevated at 1327. EKG showed sinus tachycardia. Echo today shows EF of 25-30% with grade 1 diastolic dysfunction. Trace MR, trace TR. Troponin trend on arrival [phone] Assessment: NSTEMI Systolic heart failure. Euvolemic Hypertension [...] signed by Stephanie Sweet MD> 04/11/23 1312 [facility] Work Phone: [phone]) 456-266911-09-2023 [facility] Procedure [facility]11-09-2023 Progress note Author Florentino Kenyon [facility] April 11, 2023 9:50am Note Date/Time April 11, 2023 9 :48am [facility] [address] [place] [address] Hospitalist Progress Note Signed Patient: Lorraine Mitchell MR#: [id number] : 1975 Acct:[id number] Age/Sex: 47 / F Adm Date: 3 Loc: 4 Room: [address] [place] [address] Type: ADM IN Attending Dr: Florentino Kenyon [...] Dose Route Start Last Admin Trade Name Mickeyq PRN Reason Stop Dose Admin Acetaminophen 650 [...] signed by Florentino Kenyon MD> 04/11/23 0950 [facility] Work Phone: [phone] 384-562911-08-2023 Consult note Author Stephanie Sweet [facility] April 10, 2023 8:00pm Note Date/Time April 10, 2023 7 :53pm [facility] [address] [place] [address] Cardiology Consult Note Signed Patient: Lorraine Mitchell MR#: [id number] : 1975 Acct:[id number] Age/Sex: 47 / F Adm Date: 3 Loc: Room: [address] [place] [address] Type: ADM IN Attending Dr: Florentino Kenyon [...] alsohad premature CAD. Patient initially presented to [facility] where troponin was positive: 248-256. BNP elevated at 1327. EKG showed sinus tachycardia. Echo today shows EF of 25-30% with grade 1 diastolic dysfunction. Trace MR, trace TR. Review of Systems Review of Systems All other systems reviewed & are negative unless noted below or in HPI [facility] Medical History (Updated 04/10/23 @ 11:06 [...] alsohad premature CAD. Patient initially presented to [facility] where troponin was positive: 248-256. BNP elevated at 1327. EKG showed sinus tachycardia. Echo today shows EF of 25-30% with grade 1 diastolic dysfunction. Trace MR, trace TR. Troponin trend on arrival [phone] Assessment: NSTEMI Systolic heart failure. Euvolemic Hypertension Hyperlipidemia Diabetes type 2 Active tobacco use Family history of premature CAD Morbid obesity PIPPA not compliant with CPAP Recommendations: -Start heparin drip for ACS. -We will plan for [facility] tomorrow to evaluate coronaries. N.p.o. past midnight -Continue aspirin, statin, losartan 50 mg daily. Will start spironolactone and SGLT2 inhibitor after [facility]. - She will need LifeVest on discharge - Will follow. Documented By: Stephanie Sweet MD 04/10/231751 Signed By: <Electronically signed by Stephanie Sweet MD> 04/10/231999 [facility] Work Phone: [phone]) [phone] Evaluation note* Author Stephanie Sweet [facility] Authored July 24, 2023 10:10am Ms Mitchell is a a 47 yr old fe male, seen at [facility] on 04/10/2023 for NSTEMI. Cath and PCI to the LAD was successful. Unsuccessful attempt to cross the RCA lesion. HX of DM type 2, HTN, PIPPA, hyperlipidemia. ECHO 04/10/2023: EF of 25-30% with grade 1 diastolic dysfunction. Trace MR, trace TR. [facility] 04/11/2023 consistent with severe two-vessel CAD-70% proximal LAD and 100% proximal RCA. Status post PCI to proximal LAD with 3.5 x 15 mm [place] NILSA. RCA was deemed to be TRAY SETTER. Assessment: 2v CAD s/p PCI to LAD (presented with NSTEMI) Ischemic cardiomyopathy/Systolic heart failure. Euvolemic Hypertension Hyperlipidemia Diabetes type 2 Active tobacco use Family history of premature CAD Morbid obesity PIPPA not compliant with CPAP Plan: - [facility] 04/11/2023 consistent with severe two-vessel CAD-70% proximal LAD and 100% proximal RCA. Status post PCI to proximal LAD with 3.5 x 15 mm [place] NILSA. RCA was deemed to be TRAY SETTER. - Repeat ECHO 07/12/23 showed improved EF [...] with cardiac rehab. -Follow-up in 2 months. [facility] Work Phone: [phone]) 495-672311-08-2023 History and physical note Author Florentino Kenyon [facility] April 10, 2023 11:10am Note Date/Time April 10, 2023 1 1:10am [facility] [address] [place] [address] Hospitalist H&P Signed Patient: Lorraine Mitchell MR#: [id number] : 1975 Acct:[id number] Age/Sex: 47 / F Adm Date: 3 Loc: Room: [address] [place] [address] Type: ADM IN Attending Dr: Florentino Kenyon [...] below or in HPI [facility] Medical History (Updated 04/10/23 @ 11:06 [...] signed by Florentino Kenyon MD> 04/10/23 1110 [facility] Work Phone: Evaluation note* Diagnosis Onset Date Resolution Status Diabetes type 2, controlled acute Hyperlipidemia acute Hypertension acute Nicotine abuse acute Non-STEMI (non-ST elevated myocardial infarction) acute PIPPA (obstructive sleep apnea) acute [facility] Work Phone: Evaluation noteNo [employer] Other Evaluation noteNo assessment information available [facility] Work Phone: Evaluation note* Diagnosis Type 2 diabetes mellitus with hyperglycemia, without long-term current use of insulin ([facility])- Primary Obesity with body mass index (BMI) of 30.0 to 39.9 Tobacco user Tobacco use disorder Essential (primary) hypertension (CMS/HCC) Unspecified essential hypertension Acute heart failure, unspecified heart failure type (CMS/HCC) Anxiety Anxiety state, unspecified [facility] Diagnosis Acute heart failure, unspecified heart failure type (CMS/HCC) Essential (primary) hypertension (CMS/HCC) Unspecified essential hypertension Coronary artery disease involving [place] coronary artery of [place] heart with angina pectoris (CMS/HCC) Mixed hyperlipidemia (CMS/HCC) Mixed hyperlipidemia [facility] Diagnosis Onset Date Resolution Status [...] sleep apnea) acute Systolic heart failure acute [facility] Work Phone: Evaluation note* Diagnosis PIPPA (obstructive sleep apnea)- Primary Obstructive sleep apnea (adult) (pediatric) Coronary artery disease involving [place] coronary artery of [place] heart with angina pectoris (CMS/HCC)- Primary Essential (primary) hypertension (CMS/HCC) Unspecified essential hypertension Type 2 diabetes mellitus with hyperglycemia, without long-term current use of insulin (CMS/HCC) Anxiety Anxiety state, unspecified Anxiety disorder, unspecified Anxiety state (CMS/HCC) Anxiety state, unspecified Acute heart failure, unspecified heart failure type (CMS/HCC) Type 2 diabetes mellitus with hyperglycemia, without long-term current use of insulin (CMS/HCC)- Primary Obesity with body mass index (BMI) of 30.0 to 39.9 Tobacco user Tobacco use disorder Essential (primary) hypertension (CMS/HCC) Unspecified essential hypertension Acute heart failure, unspecified heart failure type (CMS/HCC) Anxiety Anxiety state, unspecified Coronary artery disease involving [place] coronary artery of [place] heart with angina pectoris (CMS/HCC) Type 2 diabetes mellitus with hyperglycemia, without long-term current use of insulin (CMS/HCC)- Primary Colon cancer screening Special screening for malignant neoplasms, colon Obesity with body mass index (BMI) of 30.0 to 39.9 Systolic heart failure, unspecified HF chronicity (CMS/HCC) Essential (primary) hypertension (CMS/HCC) Unspecified essential hypertension Coronary artery disease involving [place] coronary artery of [place] heart with angina pectoris (CMS/HCC) Tobacco user Tobacco use disorder Type 2 diabetes mellitus with hyperglycemia, without long-term current use of insulin (CMS/HCC)- Primary Essential (primary) hypertension (CMS/HCC) Unspecified essential hypertension Acute cystitis without hematuria Herpes zoster without complication- Primary Other hemorrhoids- Primary Nausea and vomiting, unspecified vomiting type documented in this encounter [facility]* Diagnosis PIPPA (obstructive sleep apnea)- Primary Obstructive sleep apnea (adult) (pediatric) Coronary artery disease involving [place] coronary artery of [place] heart with angina pectoris (CMS/HCC)- Primary Essential (primary) hypertension (CMS/HCC) Unspecified essential hypertension Type 2 diabetes mellitus with hyperglycemia, without long-term current use of insulin (CMS/HCC) Anxiety Anxiety state, unspecified Anxiety disorder, unspecified Anxiety state (CMS/HCC) Anxiety state, unspecified Acute heart failure, unspecified heart failure type (CMS/HCC) Type 2 diabetes mellitus with hyperglycemia, without long-term current use of insulin (CMS/HCC)- Primary Obesity with body mass index (BMI) of 30.0 to 39.9 Tobacco user Tobacco use disorder Essential (primary) hypertension (CMS/HCC) Unspecified essential hypertension Acute heart failure, unspecified heart failure type (CMS/HCC) Anxiety Anxiety state, unspecified Coronary artery disease involving [place] coronary artery of [place] heart with angina pectoris (CMS/HCC) Type 2 diabetes mellitus with hyperglycemia, without long-term current use of insulin (CMS/HCC)- Primary Colon cancer screening Special screening for malignant neoplasms, colon Obesity with body mass index (BMI) of 30.0 to 39.9 Systolic heart failure, unspecified HF chronicity (CMS/HCC) Essential (primary) hypertension (CMS/HCC) Unspecified essential hypertension Coronary artery disease involving [place] coronary artery of [place] heart with angina pectoris (CMS/HCC) Tobacco user Tobacco use disorder Type 2 diabetes mellitus with hyperglycemia, without long-term current use of insulin (CMS/HCC)- Primary Essential (primary) hypertension (CMS/HCC) Unspecified essential hypertension Acute cystitis without hematuria Herpes zoster without complication- Primary Type 2 diabetes mellitus with hyperglycemia, without long-term current use of insulin (CMS/HCC) documented in this encounter [facility]* Diagnosis PIPPA (obstructive sleep apnea)- Primary Obstructive sleep apnea (adult) (pediatric) Coronary artery disease involving [place] coronary artery of [place] heart with angina pectoris (CMS/HCC)- Primary Essential (primary) hypertension (CMS/HCC) Unspecified essential hypertension Type 2 diabetes mellitus with hyperglycemia, without long-term current use of insulin (CMS/HCC) Anxiety Anxiety state, unspecified Anxiety disorder, unspecified Anxiety state (CMS/HCC) Anxiety state, unspecified Acute heart failure, unspecified heart failure type (CMS/HCC) Type 2 diabetes mellitus with hyperglycemia, without long-term current use of insulin (CMS/[facility])- Primary Obesity with body mass index (BMI) of 30.0 to 39.9 Tobacco user Tobacco use disorder Essential (primary) hypertension ([facility]) Unspecified essential hypertension Acute heart failure, unspecified heart failure type (CMS/[facility]) Anxiety Anxiety state, unspecified Coronary artery disease involving [place] coronary artery of [place] heart with angina pectoris ([facility]) Type 2 diabetes mellitus with hyperglycemia, without long-term current use of insulin ([facility])- Primary Colon cancer screening Special screening for malignant neoplasms, colon Obesity with body mass index (BMI) of 30.0 to 39.9 Systolic heart failure, unspecified HF chronicity (CMS/[facility]) Essential (primary) hypertension ([facility]) Unspecified essential hypertension Coronary artery disease involving [place] coronary artery of [place] heart with angina pectoris ([facility]) Tobacco user Tobacco use disorder Type 2 diabetes mellitus with hyperglycemia, without long-term current use of insulin ([facility])- Primary Essential (primary) hypertension ([facility]) Unspecified essential hypertension Acute cystitis without hematuria Herpes zoster without complication- Primary Type 2 diabetes mellitus with hyperglycemia, without long-term current use of insulin ([facility])- Primary PIPPA (obstructive sleep apnea) Obstructive sleep apnea (adult) (pediatric) Systolic heart failure, unspecified HF chronicity ([facility]) Essential (primary) hypertension ([facility]) Unspecified essential hypertension Obesity with body mass index (BMI) of 30.0 to 39.9 Hypothyroidism (acquired) ([facility]) Unspecified hypothyroidism Tobacco user Tobacco use disorder Anxiety Anxiety state, unspecified Diabetic polyneuropathy associated with type 2 diabetes mellitus ([facility]) documented in this encounter [facility] note* Diagnosis PIPPA (obstructive sleep apnea)- Primary Obstructive sleep apnea (adult) (pediatric) Coronary artery disease involving [place] coronary artery of [place] heart with angina pectoris ([facility])- Primary Essential (primary) hypertension ([facility]) Unspecified essential hypertension Type 2 diabetes mellitus with hyperglycemia, without long-term current use of insulin ([facility]) Anxiety Anxiety state, unspecified Anxiety disorder, unspecified Anxiety state ([facility]) Anxiety state, unspecified Acute heart failure, unspecified heart failure type ([facility]) Type 2 diabetes mellitus with hyperglycemia, without long-term current use of insulin ([facility])- Primary Obesity with body mass index (BMI) of 30.0 to 39.9 Tobacco user Tobacco use disorder Essential (primary) hypertension ([facility]) Unspecified essential hypertension Acute heart failure, unspecified heart failure type ([facility]) Anxiety Anxiety state, unspecified Coronary artery disease involving [place] coronary artery of [place] heart with angina pectoris ([facility]) Type 2 diabetes mellitus with hyperglycemia, without long-term current use of insulin ([facility])- Primary Colon cancer screening Special screening for malignant neoplasms, colon Obesity with body mass index (BMI) of 30.0 to 39.9 Systolic heart failure, unspecified HF chronicity ([facility]) Essential (primary) hypertension ([facility]) Unspecified essential hypertension Coronary artery disease involving [place] coronary artery of [place] heart with angina pectoris ([facility]) Tobacco user Tobacco use disorder Type 2 diabetes mellitus with hyperglycemia, without long-term current use of insulin ([facility])- Primary Essential (primary) hypertension ([facility]) Unspecified essential hypertension Acute cystitis without hematuria Herpes zoster without complication- Primary Type 2 diabetes mellitus with hyperglycemia, without long-term current use of insulin ([facility])- Primary PIPPA (obstructive sleep apnea) Obstructive sleep apnea (adult) (pediatric) Systolic heart failure, unspecified HF chronicity ([facility]) Essential (primary) hypertension ([facility]) Unspecified essential hypertension Obesity with body mass index (BMI) of 30.0 to 39.9 Hypothyroidism (acquired) ([facility]) Unspecified hypothyroidism Tobacco user Tobacco use disorder Anxiety Anxiety state, unspecified Diabetic polyneuropathy associated with type 2 diabetes mellitus ([facility]) Type 2 diabetes mellitus with hyperglycemia, without long-term current use of insulin ([facility]) Anxiety Anxiety state, unspecified documented in this encounter [facility]Evaluation note* Diagnosis PIPPA (obstructive sleep apnea)- Primary Obstructive sleep apnea (adult) (pediatric) Coronary artery disease involving [place] coronary artery of [place] heart with angina pectoris ([facility])- Primary Essential (primary) hypertension ([facility]) Unspecified essential hypertension Type 2 diabetes mellitus with hyperglycemia, without long-term current use of insulin ([facility]) Anxiety Anxiety state, unspecified Anxiety disorder, unspecified Anxiety state ([facility]) Anxiety state, unspecified Acute heart failure, unspecified heart failure type ([facility]) Type 2 diabetes mellitus with hyperglycemia, without long-term current use of insulin ([facility])- Primary Obesity with body mass index (BMI) of 30.0 to 39.9 Tobacco user Tobacco use disorder Essential (primary) hypertension ([facility]) Unspecified essential hypertension Acute heart failure, unspecified heart failure type ([facility]) Anxiety Anxiety state, unspecified Coronary artery disease involving [place] coronary artery of [place] heart with angina pectoris ([facility]) Type 2 diabetes mellitus with hyperglycemia, without long-term current use of insulin ([facility])- Primary Colon cancer screening Special screening for malignant neoplasms, colon Obesity with body mass index (BMI) of 30.0 to 39.9 Systolic heart failure, unspecified HF chronicity ([facility]) Essential (primary) hypertension ([facility]) Unspecified essential hypertension Coronary artery disease involving [place] coronary artery of [place] heart with angina pectoris ([facility]) Tobacco user Tobacco use disorder Type 2 diabetes mellitus with hyperglycemia, without long-term current use of insulin ([facility])- Primary Essential (primary) hypertension ([facility]) Unspecified essential hypertension Acute cystitis without hematuria Herpes zoster without complication- Primary Type 2 diabetes mellitus with hyperglycemia, without long-term current use of insulin ([facility])- Primary PIPPA (obstructive sleep apnea) Obstructive sleep apnea (adult) (pediatric) Systolic heart failure, unspecified HF chronicity ([facility]) Essential (primary) hypertension ([facility]) Unspecified essential hypertension Obesity with body mass index (BMI) of 30.0 to 39.9 Hypothyroidism (acquired) ([facility]) Unspecified hypothyroidism Tobacco user Tobacco use disorder Anxiety Anxiety state, unspecified Diabetic polyneuropathy associated with type 2 diabetes mellitus ([facility]) Mixed hyperlipidemia ([facility])- Primary Mixed hyperlipidemia documented in this encounter [facility]* Diagnosis Herpes zoster without complication- Primary documented in this encounter [facility]* Diagnosis Nausea and vomiting, unspecified vomiting type- Primary documented in this encounter [facility]* Diagnosis Type 2 diabetes mellitus with hyperglycemia, without long-term current use of insulin ([facility])- Primary Essential (primary) hypertension ([facility]) Unspecified essential hypertension Acute cystitis without hematuria documented in this encounter [facility]* Diagnosis PIPPA (obstructive sleep apnea)- Primary Obstructive sleep apnea (adult) (pediatric) Coronary artery disease involving [place] coronary artery of [place] heart with angina pectoris ([facility])- Primary Essential (primary) hypertension ([facility]) Unspecified essential hypertension Type 2 diabetes mellitus with hyperglycemia, without long-term current use of insulin ([facility]) Anxiety Anxiety state, unspecified Anxiety disorder, unspecified Anxiety state ([facility]) Anxiety state, unspecified Acute heart failure, unspecified heart failure type ([facility]) Type 2 diabetes mellitus with hyperglycemia, without long-term current use of insulin ([facility])- Primary Obesity with body mass index (BMI) of 30.0 to 39.9 Tobacco user Tobacco use disorder Essential (primary) hypertension ([facility]) Unspecified essential hypertension Acute heart failure, unspecified heart failure type ([facility]) Anxiety Anxiety state, unspecified Coronary artery disease involving [place] coronary artery of [place] heart with angina pectoris ([facility]) Type 2 diabetes mellitus with hyperglycemia, without long-term current use of insulin ([facility])- Primary Colon cancer screening Special screening for malignant neoplasms, colon Obesity with body mass index (BMI) of 30.0 to 39.9 Systolic heart failure, unspecified HF chronicity ([facility]) Essential (primary) hypertension ([facility]) Unspecified essential hypertension Coronary artery disease involving [place] coronary artery of [place] heart with angina pectoris ([facility]) Tobacco user Tobacco use disorder Type 2 diabetes mellitus with hyperglycemia, without long-term current use of insulin ([facility])- Primary Essential (primary) hypertension ([facility]) Unspecified essential hypertension Acute cystitis without hematuria Herpes zoster without complication- Primary Type 2 diabetes mellitus with hyperglycemia, without long-term current use of insulin ([facility])- Primary PIPPA (obstructive sleep apnea) Obstructive sleep apnea (adult) (pediatric) Systolic heart failure, unspecified HF chronicity ([facility]) Essential (primary) hypertension ([facility]) Unspecified essential hypertension Obesity with body mass index (BMI) of 30.0 to 39.9 Hypothyroidism (acquired) ([facility]) Unspecified hypothyroidism Tobacco user Tobacco use disorder Anxiety Anxiety state, unspecified Diabetic polyneuropathy associated with type 2 diabetes mellitus ([facility]) URI, acute- Primary Acute upper respiratory infections of unspecified site documented in this encounter [facility]* Diagnosis PIPPA (obstructive sleep apnea)- Primary Obstructive sleep apnea (adult) (pediatric) Coronary artery disease involving [place] coronary artery of [place] heart with angina pectoris ([facility]/HCC)- Primary Essential (primary) hypertension ([facility]) Unspecified essential hypertension Type 2 diabetes mellitus with hyperglycemia, without long-term current use of insulin ([facility]) Anxiety Anxiety state, unspecified Anxiety disorder, unspecified Anxiety state ([facility]) Anxiety state, unspecified Acute heart failure, unspecified heart failure type ([facility]) Type 2 diabetes mellitus with hyperglycemia, without long-term current use of insulin ([facility])- Primary Obesity with body mass index (BMI) of 30.0 to 39.9 Tobacco user Tobacco use disorder Essential (primary) hypertension ([facility]) Unspecified essential hypertension Acute heart failure, unspecified heart failure type ([facility]) Anxiety Anxiety state, unspecified Coronary artery disease involving [place] coronary artery of [place] heart with angina pectoris ([facility]) Type 2 diabetes mellitus with hyperglycemia, without long-term current use of insulin ([facility])- Primary Colon cancer screening Special screening for malignant neoplasms, colon Obesity with body mass index (BMI) of 30.0 to 39.9 Systolic heart failure, unspecified HF chronicity ([facility]) Essential (primary) hypertension ([facility]) Unspecified essential hypertension Coronary artery disease involving [place] coronary artery of [place] heart with angina pectoris ([facility]) Tobacco user Tobacco use disorder Type 2 diabetes mellitus with hyperglycemia, without long-term current use of insulin ([facility])- Primary Essential (primary) hypertension ([facility]) Unspecified essential hypertension Acute cystitis without hematuria Herpes zoster without complication- Primary Type 2 diabetes mellitus with hyperglycemia, without long-term current use of insulin ([facility])- Primary PIPPA (obstructive sleep apnea) Obstructive sleep apnea (adult) (pediatric) Systolic heart failure, unspecified HF chronicity ([facility]) Essential (primary) hypertension ([facility]) Unspecified essential hypertension Obesity with body mass index (BMI) of 30.0 to 39.9 Hypothyroidism (acquired) ([facility]) Unspecified hypothyroidism Tobacco user Tobacco use disorder Anxiety Anxiety state, unspecified Diabetic polyneuropathy associated with type 2 diabetes mellitus ([facility]) URI, acute- Primary Acute upper respiratory infections of unspecified site Mixed hyperlipidemia ([facility]) Mixed hyperlipidemia documented in this encounter [facility]* Diagnosis PIPPA (obstructive sleep apnea)- Primary Obstructive sleep apnea (adult) (pediatric) Coronary artery disease involving [place] coronary artery of [place] heart with angina pectoris ([facility])- Primary Essential (primary) hypertension ([facility]) Unspecified essential hypertension Type 2 diabetes mellitus with hyperglycemia, without long-term current use of insulin ([facility]) Anxiety Anxiety state, unspecified Anxiety disorder, unspecified Anxiety state ([facility]) Anxiety state, unspecified Acute heart failure, unspecified heart failure type ([facility]) Type 2 diabetes mellitus with hyperglycemia, without long-term current use of insulin ([facility])- Primary Obesity with body mass index (BMI) of 30.0 to 39.9 Tobacco user Tobacco use disorder Essential (primary) hypertension ([facility]) Unspecified essential hypertension Acute heart failure, unspecified heart failure type ([facility]) Anxiety Anxiety state, unspecified Coronary artery disease involving [place] coronary artery of [place] heart with angina pectoris ([facility]) Type 2 diabetes mellitus with hyperglycemia, without long-term current use of insulin ([facility])- Primary Colon cancer screening Special screening for malignant neoplasms, colon Obesity with body mass index (BMI) of 30.0 to 39.9 Systolic heart failure, unspecified HF chronicity ([facility]) Essential (primary) hypertension ([facility]) Unspecified essential hypertension Coronary artery disease involving [place] coronary artery of [place] heart with angina pectoris ([facility]) Tobacco user Tobacco use disorder Type 2 diabetes mellitus with hyperglycemia, without long-term current use of insulin ([facility])- Primary Essential (primary) hypertension ([facility]) Unspecified essential hypertension Acute cystitis without hematuria Herpes zoster without complication- Primary Type 2 diabetes mellitus with hyperglycemia, without long-term current use of insulin ([facility])- Primary PIPPA (obstructive sleep apnea) Obstructive sleep apnea (adult) (pediatric) Systolic heart failure, unspecified HF chronicity ([facility]) Essential (primary) hypertension ([facility]) Unspecified essential hypertension Obesity with body mass index (BMI) of 30.0 to 39.9 Hypothyroidism (acquired) ([facility]) Unspecified hypothyroidism Tobacco user Tobacco use disorder Anxiety Anxiety state, unspecified Diabetic polyneuropathy associated with type 2 diabetes mellitus ([facility]) URI, acute- Primary Acute upper respiratory infections of unspecified site Type 2 diabetes mellitus with hyperglycemia, without long-term current use of insulin ([facility]) [facility]* Diagnosis PIPPA (obstructive sleep apnea)- Primary Obstructive sleep apnea (adult) (pediatric) Coronary artery disease involving [place] coronary artery of [place] heart with angina pectoris ([facility])- Primary Essential (primary) hypertension ([facility]) Unspecified essential hypertension Type 2 diabetes mellitus with hyperglycemia, without long-term current use of insulin ([facility]) Anxiety Anxiety state, unspecified Anxiety disorder, unspecified Anxiety state ([facility]) Anxiety state, unspecified Acute heart failure, unspecified heart failure type ([facility]) Type 2 diabetes mellitus with hyperglycemia, without long-term current use of insulin ([facility])- Primary Obesity with body mass index (BMI) of 30.0 to 39.9 Tobacco user Tobacco use disorder Essential (primary) hypertension ([facility]) Unspecified essential hypertension Acute heart failure, unspecified heart failure type ([facility]) Anxiety Anxiety state, unspecified Coronary artery disease involving [place] coronary artery of [place] heart with angina pectoris ([facility]) Type 2 diabetes mellitus with hyperglycemia, without long-term current use of insulin ([facility])- Primary Colon cancer screening Special screening for malignant neoplasms, colon Obesity with body mass index (BMI) of 30.0 to 39.9 Systolic heart failure, unspecified HF chronicity ([facility]) Essential (primary) hypertension ([facility]) Unspecified essential hypertension Coronary artery disease involving [place] coronary artery of [place] heart with angina pectoris ([facility]) Tobacco user Tobacco use disorder Type 2 diabetes mellitus with hyperglycemia, without long-term current use of insulin ([facility])- Primary Essential (primary) hypertension ([facility]) Unspecified essential hypertension Acute cystitis without hematuria Herpes zoster without complication- Primary Type 2 diabetes mellitus with hyperglycemia, without long-term current use of insulin ([facility])- Primary PIPPA (obstructive sleep apnea) Obstructive sleep apnea (adult) (pediatric) Systolic heart failure, unspecified HF chronicity ([facility]) Essential (primary) hypertension ([facility]) Unspecified essential hypertension Obesity with body mass index (BMI) of 30.0 to 39.9 Hypothyroidism (acquired) ([facility]) Unspecified hypothyroidism Tobacco user Tobacco use disorder Anxiety Anxiety state, unspecified Diabetic polyneuropathy associated with type 2 diabetes mellitus ([facility]) Type 2 diabetes mellitus with diabetic polyneuropathy ([facility])- Primary Unspecified systolic (congestive) heart failure ([facility]) Obesity with body mass index (BMI) of 30.0 to 39.9 Anxiety Anxiety state, unspecified Type 2 diabetes mellitus with hyperglycemia, without long-term current use of insulin ([facility]) Tobacco user Tobacco use disorder Family history of cancer Family history of unspecified malignant neoplasm documented in this encounter [facility]* Diagnosis PIPPA (obstructive sleep apnea)- Primary Obstructive sleep apnea (adult) (pediatric) Coronary artery disease involving [place] coronary artery of [place] heart with angina pectoris ([facility])- Primary Essential (primary) hypertension ([facility]) Unspecified essential hypertension Type 2 diabetes mellitus with hyperglycemia, without long-term current use of insulin ([facility]) Anxiety Anxiety state, unspecified Anxiety disorder, unspecified Anxiety state ([facility]) Anxiety state, unspecified Acute heart failure, unspecified heart failure type ([facility]) Type 2 diabetes mellitus with hyperglycemia, without long-term current use of insulin ([facility])- Primary Obesity with body mass index (BMI) of 30.0 to 39.9 Tobacco user Tobacco use disorder Essential (primary) hypertension ([facility]) Unspecified essential hypertension Acute heart failure, unspecified heart failure type ([facility]) Anxiety Anxiety state, unspecified Coronary artery disease involving [place] coronary artery of [place] heart with angina pectoris ([facility]) Type 2 diabetes mellitus with hyperglycemia, without long-term current use of insulin ([facility])- Primary Colon cancer screening Special screening for malignant neoplasms, colon Obesity with body mass index (BMI) of 30.0 to 39.9 Systolic heart failure, unspecified HF chronicity ([facility]) Essential (primary) hypertension ([facility]) Unspecified essential hypertension Coronary artery disease involving [place] coronary artery of [place] heart with angina pectoris ([facility]) Tobacco user Tobacco use disorder Type 2 diabetes mellitus with hyperglycemia, without long-term current use of insulin ([facility])- Primary Essential (primary) hypertension ([facility]) Unspecified essential hypertension Acute cystitis without hematuria Herpes zoster without complication- Primary Type 2 diabetes mellitus with hyperglycemia, without long-term current use of insulin ([facility])- Primary PIPPA (obstructive sleep apnea) Obstructive sleep apnea (adult) (pediatric) Systolic heart failure, unspecified HF chronicity (CMS/HCC) Essential (primary) hypertension ([facility]) Unspecified essential hypertension Obesity with body mass index (BMI) of 30.0 to 39.9 Hypothyroidism (acquired) ([facility]) Unspecified hypothyroidism Tobacco user Tobacco use disorder Anxiety Anxiety state, unspecified Diabetic polyneuropathy associated with type 2 diabetes mellitus (CMS/HCC) Type 2 diabetes mellitus with diabetic polyneuropathy (CMS/HCC)- Primary Unspecified systolic (congestive) heart failure (CMS/HCC) Obesity with body mass index (BMI) of 30.0 to 39.9 Anxiety Anxiety state, unspecified Type 2 diabetes mellitus with hyperglycemia, without long-term current use of insulin (CMS/HCC) Tobacco user Tobacco use disorder Family history of cancer Family history of unspecified malignant neoplasm URI, acute Acute upper respiratory infections of unspecified site documented in this encounter [facility]* Diagnosis PIPPA (obstructive sleep apnea)- Primary Obstructive sleep apnea (adult) (pediatric) Coronary artery disease involving [place] coronary artery of [place] heart with angina pectoris (CMS/HCC)- Primary Essential (primary) hypertension (CMS/HCC) Unspecified essential hypertension Type 2 diabetes mellitus with hyperglycemia, without long-term current use of insulin (CMS/HCC) Anxiety Anxiety state, unspecified Anxiety disorder, unspecified Anxiety state (CMS/HCC) Anxiety state, unspecified Acute heart failure, unspecified heart failure type (CMS/HCC) Type 2 diabetes mellitus with hyperglycemia, without long-term current use of insulin (CMS/HCC)- Primary Obesity with body mass index (BMI) of 30.0 to 39.9 Tobacco user Tobacco use disorder Essential (primary) hypertension (CMS/HCC) Unspecified essential hypertension Acute heart failure, unspecified heart failure type (CMS/HCC) Anxiety Anxiety state, unspecified Coronary artery disease involving [place] coronary artery of [place] heart with angina pectoris (CMS/HCC) Type 2 diabetes mellitus with hyperglycemia, without long-term current use of insulin (CMS/HCC)- Primary Colon cancer screening Special screening for malignant neoplasms, colon Obesity with body mass index (BMI) of 30.0 to 39.9 Systolic heart failure, unspecified HF chronicity (CMS/HCC) Essential (primary) hypertension (CMS/HCC) Unspecified essential hypertension Coronary artery disease involving [place] coronary artery of [place] heart with angina pectoris (CMS/HCC) Tobacco user Tobacco use disorder Type 2 diabetes mellitus with hyperglycemia, without long-term current use of insulin (CMS/HCC)- Primary Essential (primary) hypertension (CMS/HCC) Unspecified essential hypertension Acute cystitis without hematuria Herpes zoster without complication- Primary Type 2 diabetes mellitus with hyperglycemia, without long-term current use of insulin (CMS/HCC)- Primary PIPPA (obstructive sleep apnea) Obstructive sleep apnea (adult) (pediatric) Systolic heart failure, unspecified HF chronicity (CMS/HCC) Essential (primary) hypertension ([facility]) Unspecified essential hypertension Obesity with body mass index (BMI) of 30.0 to 39.9 Hypothyroidism (acquired) ([facility]) Unspecified hypothyroidism Tobacco user Tobacco use disorder Anxiety Anxiety state, unspecified Diabetic polyneuropathy associated with type 2 diabetes mellitus ([facility]) Type 2 diabetes mellitus with diabetic polyneuropathy ([facility])- Primary Unspecified systolic (congestive) heart failure ([facility]) Obesity with body mass index (BMI) of 30.0 to 39.9 Anxiety Anxiety state, unspecified Type 2 diabetes mellitus with hyperglycemia, without long-term current use of insulin ([facility]) Tobacco user Tobacco use disorder Family history of cancer Family history of unspecified malignant neoplasm Tobacco user- Primary Tobacco use disorder documented in this encounter [facility]* Diagnosis PIPPA (obstructive sleep apnea)- Primary Obstructive sleep apnea (adult) (pediatric) Coronary artery disease involving [place] coronary artery of [place] heart with angina pectoris ([facility])- Primary Essential (primary) hypertension ([facility]) Unspecified essential hypertension Type 2 diabetes mellitus with hyperglycemia, without long-term current use of insulin ([facility]) Anxiety Anxiety state, unspecified Anxiety disorder, unspecified Anxiety state ([facility]) Anxiety state, unspecified Acute heart failure, unspecified heart failure type ([facility]) Type 2 diabetes mellitus with hyperglycemia, without long-term current use of insulin ([facility])- Primary Obesity with body mass index (BMI) of 30.0 to 39.9 Tobacco user Tobacco use disorder Essential (primary) hypertension ([facility]) Unspecified essential hypertension Acute heart failure, unspecified heart failure type ([facility]) Anxiety Anxiety state, unspecified Coronary artery disease involving [place] coronary artery of [place] heart with angina pectoris ([facility]) Type 2 diabetes mellitus with hyperglycemia, without long-term current use of insulin ([facility])- Primary Colon cancer screening Special screening for malignant neoplasms, colon Obesity with body mass index (BMI) of 30.0 to 39.9 Systolic heart failure, unspecified HF chronicity (CMS/HCC) Essential (primary) hypertension ([facility]) Unspecified essential hypertension Coronary artery disease involving [place] coronary artery of [place] heart with angina pectoris ([facility]) Tobacco user Tobacco use disorder Type 2 diabetes mellitus with hyperglycemia, without long-term current use of insulin ([facility])- Primary Essential (primary) hypertension ([facility]) Unspecified essential hypertension Acute cystitis without hematuria Herpes zoster without complication- Primary Type 2 diabetes mellitus with hyperglycemia, without long-term current use of insulin ([facility])- Primary PIPPA (obstructive sleep apnea) Obstructive sleep apnea (adult) (pediatric) Systolic heart failure, unspecified HF chronicity ([facility]) Essential (primary) hypertension ([facility]) Unspecified essential hypertension Obesity with body mass index (BMI) of 30.0 to 39.9 Hypothyroidism (acquired) ([facility]) Unspecified hypothyroidism Tobacco user Tobacco use disorder Anxiety Anxiety state, unspecified Diabetic polyneuropathy associated with type 2 diabetes mellitus ([facility]) Type 2 diabetes mellitus with diabetic polyneuropathy ([facility])- Primary Unspecified systolic (congestive) heart failure ([facility]) Obesity with body mass index (BMI) of 30.0 to 39.9 Anxiety Anxiety state, unspecified Type 2 diabetes mellitus with hyperglycemia, without long-term current use of insulin ([facility]) Tobacco user Tobacco use disorder Family history of cancer Family history of unspecified malignant neoplasm Tobacco user- Primary Tobacco use disorder Herpes labialis- Primary Herpes simplex without mention of complication documented in this encounter [facility]* Diagnosis PIPPA (obstructive sleep apnea)- Primary Obstructive sleep apnea (adult) (pediatric) Coronary artery disease involving [place] coronary artery of [place] heart with angina pectoris ([facility])- Primary Essential (primary) hypertension ([facility]) Unspecified essential hypertension Type 2 diabetes mellitus with hyperglycemia, without long-term current use of insulin ([facility]) Anxiety Anxiety state, unspecified Anxiety disorder, unspecified Anxiety state ([facility]) Anxiety state, unspecified Acute heart failure, unspecified heart failure type ([facility]) Type 2 diabetes mellitus with hyperglycemia, without long-term current use of insulin ([facility])- Primary Obesity with body mass index (BMI) of 30.0 to 39.9 Tobacco user Tobacco use disorder Essential (primary) hypertension ([facility]) Unspecified essential hypertension Acute heart failure, unspecified heart failure type ([facility]) Anxiety Anxiety state, unspecified Coronary artery disease involving [place] coronary artery of [place] heart with angina pectoris ([facility]) Type 2 diabetes mellitus with hyperglycemia, without long-term current use of insulin ([facility])- Primary Colon cancer screening Special screening for malignant neoplasms, colon Obesity with body mass index (BMI) of 30.0 to 39.9 Systolic heart failure, unspecified HF chronicity ([facility]) Essential (primary) hypertension ([facility]) Unspecified essential hypertension Coronary artery disease involving [place] coronary artery of [place] heart with angina pectoris ([facility]) Tobacco user Tobacco use disorder Type 2 diabetes mellitus with hyperglycemia, without long-term current use of insulin ([facility])- Primary Essential (primary) hypertension ([facility]) Unspecified essential hypertension Acute cystitis without hematuria Herpes zoster without complication- Primary Type 2 diabetes mellitus with hyperglycemia, without long-term current use of insulin ([facility])- Primary PIPPA (obstructive sleep apnea) Obstructive sleep apnea (adult) (pediatric) Systolic heart failure, unspecified HF chronicity ([facility]) Essential (primary) hypertension ([facility]) Unspecified essential hypertension Obesity with body mass index (BMI) of 30.0 to 39.9 Hypothyroidism (acquired) ([facility]) Unspecified hypothyroidism Tobacco user Tobacco use disorder Anxiety Anxiety state, unspecified Diabetic polyneuropathy associated with type 2 diabetes mellitus ([facility]) Type 2 diabetes mellitus with diabetic polyneuropathy ([facility])- Primary Unspecified systolic (congestive) heart failure ([facility]) Obesity with body mass index (BMI) of 30.0 to 39.9 Anxiety Anxiety state, unspecified Type 2 diabetes mellitus with hyperglycemia, without long-term current use of insulin ([facility]) Tobacco user Tobacco use disorder Family history of cancer Family history of unspecified malignant neoplasm Tobacco user- Primary Tobacco use disorder Tobacco user Tobacco use disorder [facility] [...] History cath/PCI 04/2023 Hospitalization History NSTEMI 04/2023 [employer] Other History of Present illness Narrative* Nelida Ambrosio, BUSINESS OFFICE SPECIALIST - 06/08/2024 11:45 AM EST Images from the original note were not included. Lorraine Mitchell is a 48 y.o. female presents with chief complaint of Diabetes HPI: Here for a recheck: Since last visit pt was started on Duloxetine for mgmt of Depression/anxiety/and DN She reports no worsening in depression/anxiety, but not a lot of improvement in her DN either She would really like to try to quit smoking: she is motivated in the new year, she has trialed patches in the past, did not help, is very apprehensive about chantix, as she is concerned about vivid dreams. She is interested in wellbutrin as her brother did very well on this and was smoking/vaping/and chewing at the same time She has a strong family hx of cancer: sister pancreatic, father colon, grandmother breast, so againwith this as well as her DM and CAD and CHF she understands that this is important for her to quit SUBJECTIVE: MEDICATIONS: Current Outpatient Medications Medication Instructions albuterol HFA 90 mcg/act inhaler 2 puffs, Inhalation, Every 6 hours PRN Alcohol Swabs ([facility] Alcohol Prep Pads) 70 [...] Oral, Daily, Do not crush or chew. ezetimibe (ZETIA) 10 mg, Oral, Daily isosorbide mononitrate ER (IMDUR) 30 mg, Daily [...] REVIEW OF SYMPTOMS: Review of Systems Constitutional: Negative for appetite change, chills and fever. HENT: Negative for congestion, ear pain and sore throat. Eyes: Negative for pain, discharge, redness and visual disturbance. Respiratory: Negative for cough, shortness of breath and wheezing. Cardiovascular: Negative for chest pain, palpitations and leg swelling. Gastrointestinal: Negative for abdominal pain, blood in stool, constipation, diarrhea, nausea and vomiting. Gas pains Genitourinary: Negative for difficulty urinating, dysuria and frequency. Musculoskeletal: Negative for arthralgias, back pain, joint swelling and myalgias. Skin: Negative for rash and wound. Neurological: Positive for numbness. Negative for dizziness, tremors, seizures, syncope and headaches. Psychiatric/Behavioral: Negative for behavioral problems, self-injury and suicidal ideas. The patient is nervous/anxious. Depression Hematological: Does not bruise/bleed easily. Endocrine: Negative for polydipsia, polyphagia and polyuria. Allergic/Immunologic: Negative for environmental allergies and food allergies. PAST MEDICAL HISTORY Past Medical History: Diagnosis Date Acute heart failure ([facility]) 05/09/2023 Acute hemorrhoid Anxiety 05/09/2023 Aphthous ulcer Cold sore Coronary artery disease involving [place] coronary artery of [place] heart with angina pectoris ([facility]) 05/09/2023 COVID-19 viremia Depression ([facility]) Diastasis recti Essential (primary) hypertension ([facility]) 05/09/2023 Eustachian salpingitis, left Hypertriglyceridemia ([facility]) hypertriglycerides Hypothyroidism (acquired) ([facility]) 05/09/2023 Left ankle swelling Mixed hyperlipidemia ([facility]) 05/09/2023 Obesity with body mass index (BMI) of 30.0 to 39.9 07/11/2023 PIPPA (obstructive sleep apnea) 05/08/2023 Right ovarian cyst Right-sided Pa's palsy Sinusitis, bacterial Toe pain, left Type 2 diabetes mellitus with hyperglycemia, without long-term current use of insulin ([facility] [facility]) 05/09/2023 Yeast infection of the vagina 04/29/2023 [...] in her mother. OBJECTIVE: Visit Vitals BP 138/82 (BP Location: Left arm, Patient Position: Sitting, BP Cuff Size: Large adult) Pulse 82 Temp 97.2 F Resp 20 Ht 5' 5 Wt 188 lb 9.6 oz SpO2 97% BMI 31.38 kg/m Smoking Status Every Day BSA 1.98 m Physical Exam Vitals and nursing note [...] Normal pulses. Heart sounds: Normal heart sounds. Pulmonary: Effort: Pulmonary effort is normal. Breath sounds: Normal breath sounds. No wheezing or rales. Abdominal: General: Bowel sounds are normal. There is no distension. Palpations: Abdomen is soft. There is no mass. Tenderness: There is no abdominal tenderness. Hernia: No hernia is present. Musculoskeletal: General: Normal range of motion. Cervical [...] hyperglycemia, without long-term current use of insulin ([facility]) Check blood sugars daily, notify if <70 or >200. Take medications (pills or insulin) as directed. Monitor for s/s of hypoglycemia (sweaty, dizziness, nausea, vomiting, or shakiness). Watch for increase in thirst, urination, or appetite. Inspect feet frequently monitoring for open wounds , andalso recommend yearly eye exam. Pt should attempt to remain as physically active as chronic conditions allow, as well as trying to follow a diet low in carbohydrates, and simple sugars. Current meds: asa, atrovastatin, carvediolol, farxiga, ezetimibe, metformin, ozempic, Most recent A1c 7.3% (04/27/24) Anxiety Last visit started on duloxetine at 30 mg Obesity with body mass index (BMI) of 30.0 to 39.9 - Primary Discussed with patient their BMI (actual, verses recommended). We have also discussed lifestyle modifications: attempts to perform physical activity as chronic conditions allow, also to monitor dietary intake: increasing protein/fruits/veggies and lowering carb intake (unless contraindicated). Limit sodas, juices, and sugary drinks. Is currently taking ozempic for her DM, and is demonstrating mild weight loss at 8 pounds over the last several months Tobacco user The patient has been advised of the risks of continued smoking: stroke, OR, all forms of cancer, lung disease, and . Options for quitting smoking include: cold turkey, hypnosis, acupuncture, nicotine replacement meds(gum, lozenges, and patches), Buproprion, and Varenicline. Would like to trial buproprion Unspecified systolic (congestive) heart failure (CMS/HCC) Continue with cardiology Is on Entresto, as well as diuretic and b raina therapy Recommend daily weights, notify cardiology if more than 3 pound gain in 24 hours Recommend low sodium diet as well Type 2 diabetes mellitus with diabetic polyneuropathy (CMS/HCC) Last appt started her taking duloxetine for depression/anxiety as well as DN Does not really feel this is helping much on the DN * Nelida Ambrosio NP - 06/08/2024 11:03 AM ESTAssociated Problem(s): Family history of cancer Sister: pancreatic, father: colon, grandma breast Pt herself: UTD on colonoscopy, had complete hysterectomy We did discuss referral to [facility] genetic testing She would like to do that * Nelida Ambrosio NP - 06/08/2024 7:07 AM ESTAssociated Problem(s): Tobacco user The patient has been advised of the risks of continued smoking: stroke, OR, all forms of cancer, lung disease, and . Options for quitting smoking include: cold turkey, hypnosis, acupuncture, nicotine replacement meds(gum, lozenges, and patches), Buproprion, and Varenicline. Would like to trial buproprion * Nelida Ambrosio NP - 06/08/2024 7:06 AM ESTAssociated Problem(s): Anxiety Last visit started on duloxetine at 30 mg Also taking buspirone as well * Nelida Ambrosio NP - 06/08/2024 7:06 AM ESTAssociated Problem(s): Type 2 diabetes mellitus with hyperglycemia, without long-term current use of insulin ([facility]) Check blood sugars daily, notify if <70 or >200. Take medications (pills or insulin) as directed. Monitor for s/s of hypoglycemia (sweaty, dizziness, nausea, vomiting, or shakiness). Watch for increase in thirst, urination, or appetite. Inspect feet frequently monitoring for open wounds , andalso recommend yearly eye exam. Pt should attempt to remain as physically active as chronic conditions allow, as well as trying to follow a diet low in carbohydrates, and simple sugars. Current meds: asa, atrovastatin, carvediolol, farxiga, ezetimibe, metformin, ozempic, Most recent A1c 7.3% (04/27/24) * Nelida Ambrosio NP - 06/08/2024 7:03 AM ESTAssociated Problem(s): Obesity with body mass index (BMI) of 30.0 to 39.9 Discussed with patient their BMI (actual, verses recommended). We have also discussed lifestyle modifications: attempts to perform physical activity as chronic conditions allow, also to monitor dietary intake: increasing protein/fruits/veggies and lowering carb intake (unless contraindicated). Limit sodas, juices, and sugary drinks. Is currently taking ozempic for her DM, and is demonstrating mild weight loss at 8 pounds over the last several months * Nelida Ambrosio NP - 06/08/2024 7:02 AM ESTAssociated Problem(s): Unspecified systolic (congestive) heart failure (CMS/HCC) Continue with cardiology Is on Entresto, as well as diuretic and b raina therapy Recommend daily weights, notify cardiology if more than 3 pound gain in 24 hours Recommend low sodium diet as well * Nelida Ambrosio NP - 06/08/2024 7:02 AM ESTAssociated Problem(s): Type 2 diabetes mellitus with diabetic polyneuropathy (CMS/HCC) Last appt started her taking duloxetine for depression/anxiety as well as DN Does not really feel this is helping much on the DN documented in this encounterNOMS HealthcareProgress note Author Stephanie Sweet [facility] April 12, 2023 2:38pm Note Date/Time April 12, 2023 2:30pm [facility] [address] [place] [address] Cardiology Progress Note Signed Patient: Lorraine Mitchell MR#: [id number] : 1975 Acct:[id number] Age/Sex: 47 / F Adm Date: 3 Loc: 4 Room: [address] [place] [address] Type: ADM IN Attending Dr: Florentino Kenyon [...] alsohad premature CAD. Patient initially presented to [facility] where troponin was positive: 248-256. BNP elevated at 1327. EKG showed sinus tachycardia. Echo today shows EF of 25-30% with grade 1 diastolic dysfunction. Trace MR, trace TR. Interim history 04/11/2023: Troponin continues to uptrend 899-->2200. Reports minimal chest pain today. Heparin drip restarted last night. LHC today Interim history 04/12/2023: Status post C and PCI to LAD. No acute events [...] alsohad premature CAD. Patient initially presented to [facility] where troponin was positive: 248-256. BNP elevated at 1327. EKG showed sinus tachycardia. Echo today shows EF of 25-30% with grade 1 diastolic dysfunction. Trace MR, trace TR. Troponin trend on arrival [phone] Assessment: NSTEMI Systolic heart failure. Euvolemic Hypertension Hyperlipidemia Diabetes type 2 Active tobacco use Family history of premature CAD Morbid obesity PIPPA not compliant with CPAP Recommendations: - [facility] 04/11/2023 consistent with severe two-vessel CAD-70% proximal LAD and 100% proximal RCA. Status post PCI to proximal LAD with 3.5 x 15 mm [place] NILSA. RCA was deemed to be TRAY SETTER. Appreciate Dr Cortez's assistance in this case. [...] signed by Stephanie Sweet MD> 04/12/23 1438 [facility] Work Phone: Reason for visit NarrativeCARDIAC REHAB REFERRAL UPDATELas [place] [employer] Other Summary Purpose Family History Relationship Condition [...] PIPPA (obstructive sleep apnea) Chief Complaint [facility]: 2wks i25.2 I25.5 Chief Complaint [facility]: 2wks i25.2 I25.5 3 month follow up [...] Provider Specialty Cardiovascu lar Disease Referred Organization [facility] Referred Address [address] [place] [phone] Referred Provider Specialty Cardiology Referral Priority Routine General Notes Cecilia Acuña 02:15:12 PM >received today, attachments made, waiting for notes to be locked Clinical Notes central scheduling f: [phone] Specialty Diagnoses / Procedures Referred By Contac t Referred To Contact Diagnoses Type 2 diabetes mellitus with hyperglycemia, without long-term current use of insulin ([facility]) Nelida Ambrosio, DANICA [address] [place] [address] Referral ID Status Reason Start Date Expiration Date V isits Requested Visits Authorized [id number] Pending Review 1 1 Additional Source Comments INFORMATION SOURCE (unrecogn ized section and content) DATE CREATED AUTHOR 08/19/2020 [facility] [employer] [facility] DATE CREATED AUTHOR AUTHOR'S ORGANIZ ATION 01/08/2022 [facility] DATE CREATED AUTHOR AUTHOR'S ORGANIZ ATION 06/11/2024 [facility] DATE CREATED AUTHOR AUTHOR'S ORGANIZ ATION 06/14/2024 [facility] Care Teams (unrecognized sec tion and content) Team Status: Active Member Role Status Dates Shilpa Lewis MD Primary Care Provider Active Team Status: Inactive Member Role Status Dates Shilpa Lewis MD Primary Care Provider Active Florentino Kenyon MD Admit Provider, Attending Provider A ctive Tile Designer Relationship Specialty Start Date End Date Thom Weinberg MD [address] [place] [phone] PCP - General Family Medicine 05/20/23 Nelida Ambrosio NP [address] [place] [address] Nurse Practitioner Family Medicine 04/19/23 Team Status: [...] July 12, 2023 End: July 12, 2023 Tile Designer Relationship Specialty Start Date End Date Thom Weinberg MD [address] [place] [phone] PCP - General Family Medicine 05/20/23 Nelida Ambrosio NP [address] [place] [address] Nurse Practitioner Family Medicine 04/19/23 Tile Designer Relationship Specialty Start Date End Date Thom Weinberg MD [address] [place] [address] PCP - General Family Medicine 05/20/23 Nelida Ambrosio, DANICA [address] [place] [address] Nurse Practitioner Family Medicine 04/19/23 Team Status: [...] September 18, 2023 End: September 18, 2023 Tile Designer Relationship Specialty Start Date End Date Thom Weinberg MD [address] [place] [address] PCP - General Family Medicine 05/20/23 Nelida Ambrosio, DANICA [address] [place] [address] Nurse Practitioner Family Medicine 04/19/23 Airam Johnson DO [address] [place] [address] Referring Physician Neurology 07/31/23 Team Status: Active Member Role Status Dates Stephanie Sweet MD Marketing Development Specialist Active Shilpa Lewis MD Primary Care Provider [...] March 18, 2024 End: March 18, 2024 Tile Designer Relationship Specialty Start Date End Date Thom Weinberg MD [address] [place] [phone] PCP - General Family Medicine 05/20/23 Nelida Ambrosio, DANICA [address] [place] [address] Nurse Practitioner Family Medicine 04/19/23 Airam Johnson DO [address] [place] [address] Referring Physician Neurology 07/31/23 Tile Designer Relationship Specialty Start Date End Date Thom Weinberg MD [address] [place] [address] PCP - General Family Medicine 05/20/23 Nelida Ambrosio, DANICA [address] [place] [address] Nurse Practitioner Family Medicine 04/19/23 Airam Johnson DO [address] [place] [address] Referring Physician Neurology 07/31/23 Tile Designer Relationship Specialty Start Date End Date Thom Weinberg MD [address] [place] [address] PCP - General Family Medicine 05/20/23 Nelida Ambrosio NP [address] [place] [address] Nurse Practitioner Family Medicine 04/19/23 Airam Johnson DO [address] [place] [address] Referring Physician Neurology 07/31/23 Tile Designer Relationship Specialty Start Date End Date Thom Weinberg MD [address] [place] [address] PCP - General Family Medicine 05/20/23 Nelida Ambrosio NP [address] [place] [address] Nurse Practitioner Family Medicine 04/19/23 Airam Johnson DO [address] [place] [address] Referring Physician Neurology 07/31/23 Tile Designer Relationship Specialty Start Date End Date Thom Weinberg MD [address] [place] [address] PCP - General Family Medicine 05/20/23 Nelida Ambrosio NP [address] [place] [address] Nurse Practitioner Family Medicine 04/19/23 Airam Johnsno DO [address] [place] [address] Referring Physician Neurology 07/31/23 Tile Designer Relationship Specialty Start Date End Date Thom Weinberg MD [address] [place] [address] PCP - General Family Medicine 05/20/23 Nelida Ambrosio NP [address] [place] [address] Nurse Practitioner Family Medicine 04/19/23 Airam Johnson DO [address] [place] [address] Referring Physician Neurology 07/31/23 Tile Designer Relationship Specialty Start Date End Date Thom Weinberg MD [address] [place] [address] PCP - General Family Medicine 05/20/23 Nelida Ambrosio NP [address] [place] [address] Nurse Practitioner Family Medicine 04/19/23 Airam Johnson DO [address] [place] [address] Referring Physician Neurology 07/31/23 Tile Designer Relationship Specialty Start Date End Date Thom Weinberg MD [address] [place] [address] PCP - General Family Medicine 05/20/23 Nelida Ambrosio NP [address] [place] [address] Nurse Practitioner Family Medicine 04/19/23 Airam Johnson DO [address] [place] [address] Referring Physician Neurology 07/31/23 Tile Designer Relationship Specialty Start Date End Date Thom Weinberg MD [address] [place] [address] PCP - General Family Medicine 05/20/23 Nelida Ambrosio, DANICA [address] [place] [address] Nurse Practitioner Family Medicine 04/19/23 Airam Johnson DO [address] [place] [address] Referring Physician Neurology 07/31/23 Tile Designer Relationship Specialty Start Date End Date Thom Weinberg MD [address] [place] [address] PCP - General Family Medicine 05/20/23 Nelida Ambrosio, DANICA [address] [place] [address] Nurse Practitioner Family Medicine 04/19/23 Airam Johnson DO [address] [place] [address] Referring Physician Neurology 07/31/23 Tile Designer Relationship Specialty Start Date End Date Thom Weinberg MD [address] [place] [address] PCP - General Family Medicine 05/20/23 Nelida Ambrosio NP [address] [place] [address] Nurse Practitioner Family Medicine 04/19/23 Airam Johnson DO [address] [place], [place] [address] Referring Physician Neurology 07/31/23 Tile Designer Relationship Specialty Start Date End Date Thom Weinberg MD [address] [place] [address] PCP - General Family Medicine 05/20/23 Nelida Ambrosio NP [address] [place] [address] Nurse Practitioner Family Medicine 04/19/23 Airam Johnson DO [address] [place], [place] [address] Referring Physician Neurology 07/31/23 Tile Designer Relationship Specialty Start Date End Date Thom Weinberg MD [address] [place] [address] PCP - General Family Medicine 05/20/23 Nelida Ambrosio NP [address] [place] [address] Nurse Practitioner Family Medicine 04/19/23 Airam Johnson DO [address] [place], [place] [address] Referring Physician Neurology 07/31/23 Tile Designer Relationship Specialty Start Date End Date Thom Weinberg MD [address] [place] [address] PCP - General Family Medicine 05/20/23 Nelida Ambrosio NP [address] [place] [address] Nurse Practitioner Family Medicine 04/19/23 Airam Johnson DO [address] [place], [place] [address] Referring Physician Neurology 07/31/23 Tile Designer Relationship Specialty Start Date End Date Thom Weinberg MD [address] [place] [address] PCP - General Family Medicine 05/20/23 Nelida Ambrosio NP [address] [place] [address] Nurse Practitioner Family Medicine 04/19/23 Airam Johnson DO [address] [place] [address] Referring Physician Neurology 07/31/23 Tile Designer Relationship Specialty Start Date End Date Thom Weinberg MD [address] [place] [address] PCP - General Family Medicine 05/20/23 Nelida Ambrosio NP [address] [place] [address] Nurse Practitioner Family Medicine 04/19/23 Airam Johnson DO [address] [place] [address] Referring Physician Neurology 07/31/23 Tile Designer Relationship Specialty Start Date End Date Thom Weinberg MD [address] [place] [address] PCP - General Family Medicine 05/20/23 Nelida Ambrosio, DANICA [address] [place] [address] Nurse Practitioner Family Medicine 04/19/23 Airam Johnson DO [address] [place] [address] Referring Physician Neurology 07/31/23 Tile Designer Relationship Specialty Start Date End Date Thom Weinberg MD [address] [place] [address] PCP - General Family Medicine 05/20/23 Nelida Ambrosio, DANICA [address] [place] [address] Nurse Practitioner Family Medicine 04/19/23 Airam Johnson DO [address] [place] [address] Referring Physician Neurology 07/31/23 Tile Designer Relationship Specialty Start Date End Date Thom Weinberg MD [address] [place] [address] PCP - General Family Medicine 05/20/23 Nelida Ambrosio NP [address] [place] [address] Nurse Practitioner Family Medicine 04/19/23 Airam Johnson DO [address] [place] [address] Referring Physician Neurology 07/31/23 REASON FOR VISIT (unrecogniz ed section and content) Reason Comments Med Refill Reason Comments Diabetes Reason Onset Date Comments Med Refill 07/09/2024 Goals (unrecognized section and content) Goals may [...] BE BASED ON THE PRIMARY CLINICAL RECORDS. [employer] provides no warranty or guarantee of the accuracy or completeness of information in this document.
[2024-07-11 11:52] LABS: Alanine Aminotransferase 19 U/L (14-59); Aspartate Amino Transferase 7 U/L (15-37); Chol HDL Ratio 5.2; Cholesterol 194 mg/dL (<=200); HDL Cholesterol 37 mg/dL (40-60); Triglycerides 410 mg/dL (<=150)
[2024-07-11 11:53] LABS: LDL Cholesterol Direct 104 mg/dL
== END 2024-07-11 11:19 | disposition home or self-care (01) ==
LOC: LAB 11:20
PROVIDERS: PCP Nurse Practitioner; Visit Provider Nurse Practitioner
DX: E78.2 Mixed hyperlipidemia (principal)
CPT/HCPCS: 36415; 80061; 83721; 84450; 84460

== ENCOUNTER 2024-08-08 11:50 | Outpatient (OUT) | payer OTHER, SELFPAY ==
--- OUTSIDE RECORDS SUMMARY | 2024-08-08 11:54 | XMS_ITS | CCD ---
Author Organization [facility] Care Team Providers Care Motorcycle Builder Name Role Phone DR SHILPA LEWIS Admitting Unavailable DR SHILPA LEWIS Attending Unavailable DR SHILPA LEWIS Primary Care Unavailable DR SHILPA LEWIS Consulting Unavailable MD Shilpa Lewis Primary Care Provider MD Florentino Kenyon Admit Provider MD Florentino Kenyon Attending Provider Stephanie Sweet Unavailable Daily PLATE FINISHER, Nelida Unavailable Thom Weinberg MD Primary Care Provider MD Shilpa Lewis Primary Care Provider MD Stephanie Sweet Attending Provider [phone] MD Shilpa Lewis Primary Care Provider MD Stephanie Sweet Attending Provider Daily PLATE FINISHER, Nelida Unavailable Thom Weinberg MD Primary Care [...] 5 days 25 tablet 06/16/2024 06/21/2024 Active [id number] 200 actuat albuterol 0.09 mg/actuat metered dose inhaler (15 sources) beta2-Adrenergic Agonist Start: 05-21-2024 End: 07-12-2024 take 2 puff(s) by inhalation every six hours for wheezing albuterol HFA 90 mcg/act inhaler Indications: URI, acute Inhale 2 puffs every 6 (six) hours if needed for wheezing or shortness of breath 18 g 06/12/2024 Active amoxicillin 875 mg / clavulanate 125 [...] sources) HMG-CoA Reductase Inhibitor Start: 04-12-2023 End: 10-10-2024 take 1 tablet by mouth at bedtime atorvastatin (Lipitor) 80 MG tablet Indications: Mixed hyperlipidemia (CMS/HCC) , 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) Take 1 tablet (80 mg) by mouth at bedtime 90 tablet 1 07/12/2024 10/10/2024 Active Blood Glucose Monitoring Suppl (True Metrix Meter) w/Device kit (20 sources) Start: 04-19-2023 Blood Glucose Monitoring Suppl (True Metrix Meter) w/Device kit USE 1 DAILY 04/19/2023 Active Start: 04-19-2023 Blood Glucose Monitoring Suppl (True Metrix Meter) w/Device kit USE 1 DAILY 0 04/19/2023 Active 12 hr buPROPion hydrochloride 150 mg extended release oral tablet (10 sources) Aminoketone Start: 06-16-2024 End: 09-12-2024 take 1 tablet by mouth every twelve hours in the morning buPROPion SR (Wellbutrin SR) 150 MG 12 hr tablet Indications: Tobacco user Take 1 tablet (150 mg) by mouth in the morning and 1 tablet (150 mg) before bedtime. 60 tablet 1 07/14/2024 09/12/2024 Active busPIRone hydrochloride 7.5 mg oral tablet (20 sources) Start: 11-05-2023 End: 07-30-2024 take 1 tablet by mouth in the morning busPIRone (Buspar) 7.5 MG tablet Indications: Anxiety Take 1 tablet (7.5 mg) by mouth in the morning and 1 tablet (7.5 mg) before bedtime. 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) Take 1 tablet (145 mg) by mouth Daily 90 tablet 1 07/31/2024 10/29/2024 Active hydrocortisone acetate 25 mg rectal suppository (4 sources) Corticosteroid Start: 03-26-2024 End: 04-01-2024 hydrocortisone (Anusol-HC) 25 MG suppository Indications: Hemorrhoids Insert 1 suppository (25 mg) into the rectum 2 (two) times a day as needed for hemorrhoids for up to 6 days 12 suppository 03/26/2024 04/01/2024 Active Start: 09-18-2023 Hydrocortisone Acetate Active 25 MG ME Daily September 18, 2023 12:00am isopropyl alcohol 0.7 ml/ml medicated pad (20 sources) Start: 04-17-2023 Alcohol Swabs ([facility] Alcohol Prep Pads) 70 % pads USE 1 PER DAY 04/17/2023 Active levothyroxine sodium 0.025 mg oral tablet (20 sources) l-Thyrox ine Start: 07-31-2024 End: 10-29-2024 take 1 tablet by mouth before mealtime levothyroxine (Synthroid, Levoxyl) 25 MCG tablet Indications: Hypothyroidism, unspecified type (CMS/HCC) Take 1 tablet (25 mcg) by mouth in the morning. Take before meals. 90 tablet 1 07/31/2024 10/29/2024 Active Start: 04-20-2024 End: 07-19-2024 take 1 tablet [...] Active oral daily for 0 *Reorder from PlayPhone for eRx and Interaction Alerts* May, Not-Taking/PRN Start: 05-09-2022 take 1 tablet by juan m th once daily Levothyroxine 75mcg levothyroxine 75mcg, 1 (one) Tablet daily # 90, 05/09/2022, No Refill. Active oral daily for 0 *Reorder from PlayPhone for eRx and Interaction Alerts* May, Not-Taking [...] Take with meals. 360 tablet 1 05/01/2024 Active Start: 07-24-2023 take 1000 mg by mout h twice daily Metformin Active 1000 MG PO Twice daily July 24, 2023 10:06am Start: 05-20-2023 End: 10-06-2023 take 2 tablets by mouth in the morning metFORMIN (Glucophage) 500 MG tablet Indications: Type 2 diabetes mellitus with hyperglycemia, without long-term current use of insulin (CMS/[facility]) Take 2 tablets (1,000 mg) by mouth [...] two times daily for 0 *Reorder from PlayPhone for eRx and Interaction Alerts* Mar, Active [...] Active ondansetron 4 mg disintegrating oral tablet (3 sources) Serotonin-3 Receptor Antagonist Start: 07-31-2024 End: 08-07-2024 take 1 tablet by mouth every eight hours for nausea ondansetron ODT (Zofran-ODT) 4 MG disintegrating tablet Indications: Nausea and vomiting, unspecified vomiting type Take 1 tablet (4 mg) by mouth every 8 (eight) hours if needed for vomiting or nausea for up to 7 days 21 tablet 07/31/2024 08/07/2024 Active Start: 03-26-2024 End: 04-02-2024 take 1 tablet [...] Discontinued 1 TAB PO Twice daily 180 December 25, 2023 12:00am March 09, 2024 [...] (Ozempic, 1 MG/DOSE,) 4 MG/3ML solution pen-injector (20 sources) Start: 06-01-2024 End: 08-24-2024 inject 1 [...] Onset: 04-29-2023 04-29-2023 Chronic Nausea and vomiting (20 sources) Nausea and [...] use disorder] 04-12-2023 Episodic Residual codes; unclassified (13 sources) Family history of cancer; Translations: [Family history of malignant neoplasm, unspecified] Onset: 06-08-2024 06-08-2024 Episodic Thyroid disorders (20 sources) Hypothyroidism, unspecified; Translations: [Hypothyroidism] Onset: 01-04-2022 Chronic Unclassified (4 sources) Acute candidiasis of vulva and vagina; Translations: [Acute candidiasis of vulva and vagina] Unclassified (6 sources) Patient on antidepressant monitoring plan Onset: 07-09-2024 07-09-2024 Unclassified (6 sources) Baseline PHQ-9 Onset: 07-09-2024 07-09-2024 Viral infection [...] 08-26-2023 08-26-2023 Episodic Other upper respiratory infections (20 sources) Acute maxillary sinusitis; Translations: [Acute recurrent [...] Onset: 07-11-2023 04-10-2023 Episodic Residual codes; unclassified (20 sources) Tobacco [...] Range Facility ALL LIPID PROFILE (FASTING)o n 07-11-2024 CHOL HDL RATIO 5.2 [facility] Comment on above: 3.3 - 4.4 LOW RISK 4.4 - 7.1 AVERAGE RISK 7.1 - 11.0 MODERATE RISK >11.0 HIGH RISK Cholesterol [Mass/Vol] 194 mg/dL NINF - 200 mg/dL [facility] Cholesterol in HDL [Mass/Vol] 37 mg/dL Low 40 - 60 mg/dL [facility] Comment on above: > or =60 mg/dl - LOW CARDIOVASCULAR RISK <40 mg/dl - HIGH CARDIOVASCULAR RISK Magnesium [Mass/Vol] 82 mg/dL [facility] Triglyceride [Mass/Vol] 410 mg/dL High NINF - 150 mg/dL [facility] 07-11-2024 ALT [Catalytic activity/Vol] 19 U/L 14 - 59 U/L [facility] Jenny 07-11-2024 AST [Catalytic activity/Vol] 7 U/L Low 15 - 37 U/L [facility] No Panel Informationon 07-11 Interpretation and review of laboratory results Abnormal [facility] ALL LIPID PROFILE (FASTING)o n 05-01-2024 CHOL HDL RATIO 4.1 [facility] Comment on above: 3.3 - 4.4 LOW RISK 4.4 - 7.1 AVERAGE RISK 7.1 - 11.0 MODERATE RISK >11.0 [facility]ISK Cholesterol [Mass/Vol] 156 mg/dL NINF - 200 mg/dL [facility] Cholesterol in HDL [Mass/Vol] 38 mg/dL Low 40 - 60 mg/dL [facility] Comment on above: > or =60 mg/dl - LOW CARDIOVASCULAR RISK <40 mg/dl - HIGH CARDIOVASCULAR RISK Magnesium [Mass/Vol] 64 mg/dL [facility] Comment on above: <100 mg/dl OPTIMAL 100-129 mg/dl NEAR OR ABOVE OPTIMAL 130-159 mg/dl BORDERLINE HIGH 160-189 mg/dl HIGH >190 mg/dl VERY HIGH Magnesium [Mass/Vol] 54.4 mg/dL [facility] Triglyceride [Mass/Vol] 272 mg/dL High NINF - 150 mg/dL [facility] ALL THYROID STIM HORMONEon 1 07-01-2023 TSH Qn 1.826 m[IU]/L [facility] CMP (CMP) (FOR REMOTE FH C USE)on 05-01-2024 Albumin [Mass/Vol] 3.5 g/dL 3.4 - 5.0 g/dL [facility] ALBUMIN GLOBULIN RATIO 0.9 NO [facility] ALP [Catalytic activity/Vol] 88 U/L 46 - 116 U/L [facility] ALT [Catalytic activity/Vol] 30 U/L 14 - 59 U/L [facility] Anion gap [Moles/Vol] 12.3 mmol/L NO [facility] AST [Catalytic activity/Vol] 10 U/L Low 15 - 37 U/L [facility] Bilirubin [Mass/Vol] 0.5 mg/dL 0.2 - 1 .0 mg/dL [facility] Calcium [Mass/Vol] 9.2 mg/dL 8.5 - 10. 1 mg/dL [facility] Chloride [Moles/Vol] 102 mmol/L 98 - 10 7 mmol/L [facility] CO2 [Moles/Vol] 28.8 mmol/L 21.0 - 32.0 mmol/L [facility] Creatinine [Mass/Vol] 0.77 mg/dL 0.55 - 1.02 mg/dL [facility] GFR/1.73 sq M.predicted CKD-EPI (S/P/Bld) [Vol rate/Area] >60 >=60 mL/min/1.73 m 2 [facility] Globulin (S) [Mass/Vol] 3.7 g/dL [facility] Glucose [Mass/Vol] 152 mg/dL High 74 - 106 mg/dL [facility] Potassium [Moles/Vol] 4.1 mmol/L 3.5 - 5.1 mmol/L [facility] Protein [Mass/Vol] 7.2 g/dL 6.4 - 8.2 g/dL [facility] Sodium [Moles/Vol] 139 mmol/L 136 - 145 mmol/L [facility] TBH EGFR-NON AF CITIZEN [place] >60 >=60 mL/min/1.73 m 2 [facility] Urea nitrogen [Mass/Vol] 13 mg/dL 7.0 - 18.0 mg/dL [facility] Urea nitrogen/Creatinine [Mass ratio] 16.9 mg/mg [facility] No Panel Informationon 05-01 Interpretation and review of laboratory results Abnormal [facility] HbA1c (Bld) [Mass fraction]o n 04-27-2024 Interpretation and review of laboratory results Abnormal [facility] Laboratory - Hematology and Cell countson 04-27-2024 HbA1c (Bld) [Mass fraction] 7.3 % [facility] ECH echo transthoracicon [facility] echo transthoracic [facility] [address] Echocardiogram Signed Patient: Lorraine Mitchell MR#: [id number] 93 : 1975 Acct:[id number] Age/Sex: 48 / F ADM Date: 04/24/24 Loc: Room: Type: [facility] Attending Dr: Stephanie Sweet MD Ordering Provider: Stephanie Sweet MD Date of Service: 04/24/24 [facility] echo transthoracic: I50.20 - Unspecified systolic (congestive) heart failure Copies to: Stephanie Sweet MD BSA: 1.9 m2 BP: 111/74 mmHg HR: 73 Reason For Study: I50.20 - Unspecified systolic (congestive) heart failure History: HTN, HLD, DM, Smoker, CAD, Stents, DC, PIPPA, COVID Interpretation Summary The LV ejection [...] Stephanie Sweet MD 04/24/24 1719 Normal [facility] No Panel Informationon 01-26 [facility] [...] Healthcare ECH echo transthoracicon [facility] echo transthoracic [facility] [address] Echocardiogram Signed Patient: Lorraine Mitchell MR#: [id number] 93 : 1975 Acct:[id number] Age/Sex: 47 / F ADM Date: 07/12/23 Loc: Room: Type: [facility] Attending Dr: Stephanie Sweet MD Ordering Provider: [...] 89.5 cm/sec Ao V2 VTI: 22.9 cm TDOD(I,D): 2.6 cm2 TODD(V,D): 2.8 cm2 __ LV V1 max PG: RAP systole: 3.5 mmHg 3.0 mmHg LV V1 mean P.0 mmHg LV V1 mean: 66.2 cm/sec LV V1 VTI: 16.1 cm Measurements from QLAB BSA (): 1.9 m2 CI (HM): ED Mass (HM): LAEF (HM): 73.0 % 2.9 l/min/m2 189.0 grams __ CHARAN (HM): LAVmax (HM): LAVmin (HM): 31.0 mlPat Height (HM): 113.0 ml 165.0 cm 59.0 ml/m2 __ Pat Weight (HM): 86.2 kg QLAB Heart Model EDV ()_phl: 187.0 ml EF ()_phl: 42.0 % ED Current ()_phl: 60.0 % ESV ()_phl: 108.0 ml HR (HM)_phl: 70.0 BPMES Current ()_phl: 30.0 % LV Length ED ()_phl: 92.0 mmSV ()_phl: 79.0 ml ED Default ()_phl: 60.0 % LV Length ES (HM)_phl: 80.0 mm ES Default ()_phl: 30.0 % Transcribed By: SCV Performed At: 07/12/23 1334 Signed By: Grace Solorio MD 07/12/23 1521 Normal [facility] ALL LIPID PROFILE (FASTING)o n 07-06-2023 CHOL HDL RATIO 3.8 [facility] Comment on above: 3.3 - 4.4 LOW RISK 4.4 - 7.1 AVERAGE RISK 7.1 - 11.0 MODERATE RISK >11.0 HIGH RISK Cholesterol [Mass/Vol] 124 mg/dL NINF - 200 mg/dL [facility] Cholesterol in HDL [Mass/Vol] 33 mg/dL Low 40 - 60 mg/dL [facility] Comment on above: > or =60 mg/dl - LOW CARDIOVASCULAR RISK <40 mg/dl - HIGH CARDIOVASCULAR RISK Magnesium [Mass/Vol] 37.0 mg/dL [facility] Comment on above: <100 mg/dl OPTIMAL 100-129 mg/dl NEAR OR ABOVE OPTIMAL 130-159 mg/dl BORDERLINE HIGH 160-189 mg/dl HIGH >190 mg/dl VERY HIGH Magnesium [Mass/Vol] 54.2 mg/dL [facility] Triglyceride [Mass/Vol] 271 mg/dL High NINF - 150 mg/dL [facility] 07-06-2023 ALT [Catalytic activity/Vol] 37 U/L 14 - 59 U/L [facility] Jenny 07-06-2023 AST [Catalytic activity/Vol] 13 U/L Low 15 - 37 U/L [facility] No Panel Informationon 07-06 Interpretation and review of laboratory results Abnormal [facility] Glucose Glucometer (BldC) [M ass/Vol]Ordered By: Florentino Kenyon on 04-12-2023 Glucose [Mass/Vol] 226 mg/dL [facility] Comment on above: Random Glucose Refer ence Range is dependent on time and content of last meal. Glucose of more than 200 mg/dL in a nonstressed, ambulatory subject supports the diagnosis of Diabetes Mellitus. Troponin I.cardiac [Mass/vol ume] in Serum or Plasma by Detection limit <= 0.01 ng/Ordered By: Magali Cortez on 04-12-2023 Troponin I.cardiac DL <= 0.01 ng/mL [Mass/Vol] 3417.1 pg/mL 0.0-15.0 [facility] Comment on above: Critical Result : Ca lled to and read back by: CLAYTON MCCLOUD at: 04/12/2023 06:08:29 by:[email or web address] Activated partial thrombopla stin time (aPTT) in platelet poor plasma by coagulation aOrdered By: Stephanie Sweet on 04-11-2023 aPTT Coag (PPP) [Time] 29.3 s 25.1-36.5 [facility] Comment on above: A hematocrit value g reater than 55% may lead to inaccurate results in coagulation testing. Patients having hematocrit values >55% require a special collection tube for coagulation studies. Please contact the laboratory at [phone] for redraw instructions. Basophils Auto (Bld) [#/Vol] Ordered By: Stephanie Sweet on 04-11-2023 Basophils (Bld) [#/Vol] 0.0 10*3/uL 0.0-0.2 [facility] Basophils/100 WBC Auto (Bld) Ordered By: Stephanie Sweet on 04-11-2023 Basophils/100 WBC (Bld) 0.5 % . [facility] Carbon dioxide, total [Moles /volume] in Serum or PlasmaOrdered By: Stephanie Sweet on 04-11-2023 CO2 [Moles/Vol] 26.7 mmol/L 21.0-31.0 [facility] Chloride [Moles/volume] in S ambika or PlasmaOrdered By: Stephanie Sweet on 04-11-2023 Chloride [Moles/Vol] 101 mmol/L 98-107 [facility] Creatine kinase [Enzymatic a ctivity/volume] in Serum or PlasmaOrdered By: Florentino Kenyon on 04-11-2023 CK [Catalytic activity/Vol] 186 U/L 30-223 [facility] Creatinine [Mass/volume] in Serum or PlasmaOrdered By: Stephanie Sweet on 04-11-2023 Creatinine [Mass/Vol] 0.47 mg/dL 0.60-1.20 [facility] Eosinophils Auto (Bld) [#/Vo l]Ordered By: Stephanie Sweet on 04-11-2023 Eosinophils (Bld) [#/Vol] 0.1 10*3/uL 0.0-0.45 [facility] Eosinophils/100 WBC Auto (Bl d)Ordered By: Stephanie Sweet on 04-11-2023 Eosinophils/100 WBC (Bld) 0.9 % . [facility] Erythrocyte distribution wid th Auto (RBC) [Ratio]Ordered By: Stephanie Sweet on 04-11-2023 Erythrocyte distribution width (RBC) [Ratio] 14.5 % 11.9-15.3 [facility] Hematocrit Auto (Bld) [Volum e fraction]Ordered By: Stephanie Sweet on 04-11-2023 Hematocrit (Bld) [Volume fraction] 35.1 % 34.0-46.4 [facility] Hemoglobin [Mass/volume] in BloodOrdered By: Stephanie Sweet on 04-11-2023 Hemoglobin (Bld) [Mass/Vol] 11.8 g/dL 11.8-15.4 [facility] INR in Platelet poor plasma by Coagulation assayOrdered By: Stephanie Sweet on 04-11-2023 INR Coag (PPP) [Relative time] 1.0 {INR} [facility] Comment on above: INR Therapeutic Rang e [...] RBC Auto (Bld) [#/Vol] 9.0 10*3/uL 3.8-11.6 [facility] Lymphocytes Auto (Bld) [#/Vo l]Ordered By: Stephanie Sweet on 04-11-2023 Lymphocytes (Bld) [#/Vol] 3.0 10*3/uL 1.00-4.8 [facility] Lymphocytes/100 WBC Auto (Bl d)Ordered By: Stephanie Sweet on 04-11-2023 Lymphocytes/100 WBC (Bld) 33.4 % . [facility] MCH Auto (RBC) [Entitic mass ]Ordered By: Stephanie Sweet on 04-11-2023 MCH (RBC) [Entitic mass] 30.7 pg 24.7-34.3 [facility] MCHC Auto (RBC) [Mass/Vol]Or dered By: Stephanie Sweet on 04-11-2023 MCHC (RBC) [Mass/Vol] 33.7 g/dL 32.0-35.0 [facility] MCV Auto (RBC) [Entitic vol] Ordered By: Stephanie Sweet on 04-11-2023 MCV (RBC) [Entitic vol] 91.1 fL 80-100 [facility] Monocytes Auto (Bld) [#/Vol] Ordered By: Stephanie Sweet on 04-11-2023 Monocytes (Bld) [#/Vol] 0.5 10*3/uL 0.0-0.8 [facility] Monocytes/100 WBC Auto (Bld) Ordered By: Stephanie Sweet on 04-11-2023 Monocytes/100 WBC (Bld) 5.8 % . [facility] Neutrophils Auto (Bld) [#/Vo l]Ordered By: Stephanie Sweet on 04-11-2023 Neutrophils (Bld) [#/Vol] 5.3 10*3/uL 1.8-7.7 [facility] Neutrophils/100 WBC Auto (Bl d)Ordered By: Stephanie Sweet on 04-11-2023 Neutrophils/100 WBC (Bld) 59.4 % . [facility] No Panel InformationOrdered By: Florentino Kenyon on 04-11-2023 Bedside Glucose Comment Glu2: cleaned meter [facility] No Panel InformationOrdered By: Stephanie Sweet on 04-11-2023 Estimated GFR (CKD-EPI) > 60.0 mL/Min [facility] Creatinine Clearance (Chem 166.11 [facility] Nucleated erythrocytes [Pres ence] in Blood by Automated countOrdered By: Stephanie Sweet on 04-11-2023 Nucleated RBC Auto Ql (Bld) 0.1 /100{WBC} 0-0.5 [facility] Platelet mean volume Auto (B ld) [Entitic vol]Ordered By: Stephanie Sweet on 04-11-2023 Platelet mean volume (Bld) [Entitic vol] 9.4 fL 6.3-10.7 [facility] Platelets Auto (Bld) [#/Vol] Ordered By: Stephanie Sweet on 04-11-2023 Platelets (Bld) [#/Vol] 213 10*3/uL 150-450 [facility] Potassium [Moles/volume] in Serum or PlasmaOrdered By: Stephanie Sweet on 04-11-2023 Potassium [Moles/Vol] 3.8 mmol/L 3.5-5.1 [facility] Prothrombin time (PT)Ordered By: Stephanie Sweet on 04-11-2023 PT Coag (PPP) [Time] 12.0 s 9.0-12.9 [facility] Comment on above: A hematocrit value g reater than 55% may lead to inaccurate results in coagulation testing. Patients having hematocrit values >55% require a special collection tube for coagulation studies. Please contact the laboratory at [phone] for redraw instructions. RBC Auto (Bld) [#/Vol]Ordere d By: Stephanie Sweet on 04-11-2023 RBC (Bld) [#/Vol] 3.85 10*6/uL 3.60-5.00 [facility] Serum or plasma anion gap de terminationOrdered By: Stephanie Sweet on 04-11-2023 Anion gap [Moles/Vol] 12.1 mmol/L 6.0-15.0 [facility] Sodium [Moles/volume] in Ser um or PlasmaOrdered By: Stephanie Sweet on 04-11-2023 Sodium [Moles/Vol] 136 mmol/L 136-145 [facility] Urea nitrogen [Mass/volume] in Serum or PlasmaOrdered By: Stephanie Sweet on 04-11-2023 Urea nitrogen [Mass/Vol] 11 mg/dL 7-25 [facility] WBC Auto (Bld) [#/Vol]Ordere d By: Stephanie Sweet on 04-11-2023 WBC (Bld) [#/Vol] 9.0 10*3/uL 3.8-11.6 [facility] FREE T4on 01-04-2022 Free T4 [Mass/Vol] 0.91 ng/dL Normal 0.76-1.46 [facility] Comment on above: Performed By: #### F T4 #### [facility] [address] [address] [address] Jane Alexis LAB TESTINGon 01-04-2022 RECV HEADER SEE SCANNED REPORT IN HPF Normal [facility] Comment on above: Performed By: #### M ISC #### [facility] [address] [place] [address] Dr. Jane Alexis REV FROM REF LAB 01/05/22 [facility] Comment on above: Performed By: #### M ISC #### [facility] [address] [place] [address] Dr. Jane Alexis SENT TO REF LAB 01/04/22 [facility] Comment on above: Performed By: #### M ISC #### [facility] [address] [place] [address] Dr. Jane Alexis TSHon 01-04-2022 TSH 2.294 uIU/mL Normal 0.358-3.740 [facility] Comment on above: Performed By: #### T SH #### [facility] [address] [place] [address] Dr. Jane Alexis Physician Referralon 021 Physician Referral [id number] Normal [facility] Vital Signs Date Time Vital Sign Value Performing Clinician Facility 06-08-2024 10:53-0500 Body height 165.1 cm Nelida Ambrosio PLATE FINISHER Work Phone: [facility] 06-08-2024 10:53-0500 Body mass index (BMI) [Ratio] 31.38 kg/m2 Nelida Ambrosio PLATE FINISHER Work Phone: [facility] 06-08-2024 10:53-0500 Body temperature 97.2 [degF] Nelida Ambrosio PLATE FINISHER Work Phone: [facility] 06-08-2024 10:53-0500 Body weight 85.55 kg Nelida Ambrosio PLATE FINISHER Work Phone: [facility] 06-08-2024 10:53-0500 Diastolic blood pressure 82 mm[Hg] Nelida Ambrosio PLATE FINISHER Work Phone: [facility] 06-08-2024 10:53-0500 Heart rate 82 /min Nelidamakayla Haydenholz PLATE FINISHER Work Phone: [facility] 06-08-2024 10:53-0500 Respiratory rate 20 /min Nelida Jackelynholz PLATE FINISHER Work Phone: [facility] 06-08-2024 10:53-0500 SaO2% (BldA) [Mass fraction] 97 % Nelida Jackelynholz PLATE FINISHER Work Phone: [facility] 06-08-2024 10:53-0500 Systolic blood pressure 138 mm[Hg] Nelida Jackelynholz PLATE FINISHER Work Phone: [facility] 04-27-2024 11:39-0500 Body height 165.1 cm Nelida Jackelynholz PLATE FINISHER Work Phone: [facility] 04-27-2024 11:39-0500 Body mass index (BMI) [Ratio] 31.78 kg/m2 Nelida Jackelynholz PLATE FINISHER Work Phone: [facility] 04-27-2024 11:39-0500 Body temperature 98.1 [degF] Nelida Nandahholz PLATE FINISHER Work Phone: [facility] 04-27-2024 11:39-0500 Body weight 86.64 kg Nelida Jackelynholz PLATE FINISHER Work Phone: [facility] 04-27-2024 11:39-0500 Diastolic blood pressure 78 mm[Hg] Nelida Jackelynholz PLATE FINISHER Work Phone: [facility] 04-27-2024 11:39-0500 Heart rate 81 /min Nelida Nandahholz PLATE FINISHER Work Phone: [facility] 04-27-2024 11:39-0500 Respiratory rate 18 /min Nelida Aichholz PLATE FINISHER Work Phone: [facility] 04-27-2024 11:39-0500 SaO2% (BldA) [Mass fraction] 96 % Nelida Nandahholz PLATE FINISHER Work Phone: [facility] 04-27-2024 11:39-0500 Systolic blood pressure 104 mm[Hg] Nelida Daily PLATE FINISHER Work Phone: [facility] 03-18-2024 13:30-0400 Body height 160.02 cm [facility] 03-18-2024 13:30-0400 Body mass index (BMI) [Ratio] 34.2 kg/m2 [facility] 03-18-2024 13:30-0400 Body weight 87.54 kg [facility] 03-18-2024 13:30-0400 Diastolic blood pressure 74 mm[Hg] [facility] 03-18-2024 13:30-0400 Heart rate 82 /min [facility] 03-18-2024 13:30-0400 Respiratory rate 18 /min [facility] 03-18-2024 13:30-0400 SaO2% (BldA) [Mass fraction] 97 % [facility] 03-18-2024 13:30-0400 Systolic blood pressure 116 mm[Hg] [facility] 01-23-2024 11:49-0400 Body height 165.1 cm Nelida Daily PLATE FINISHER Work Phone: [facility] 01-23-2024 11:49-0400 Body mass index (BMI) [Ratio] 32.62 kg/m2 Nelida Daily PLATE FINISHER Work Phone: [facility] 01-23-2024 11:49-0400 Body temperature 98.6 [degF] Nelida Daily PLATE FINISHER Work Phone: [facility] 01-23-2024 11:49-0400 Body weight 88.91 kg Nelida Daily PLATE FINISHER Work Phone: [facility] 01-23-2024 11:49-0400 Diastolic blood pressure 76 mm[Hg] Nelida Daily PLATE FINISHER Work Phone: [facility] 01-23-2024 11:49-0400 Heart rate 78 /min Nelida Daily PLATE FINISHER Work Phone: [facility] 01-23-2024 11:49-0400 Respiratory rate 18 /min Nelida Ambrosio PLATE FINISHER Work Phone: [facility] 01-23-2024 11:49-0400 SaO2% (BldA) [Mass fraction] 97 % Nelida Ambrosio PLATE FINISHER Work Phone: [facility] 01-23-2024 11:49-0400 Systolic blood pressure 112 mm[Hg] Nelida Ambrosio PLATE FINISHER Work Phone: [facility] 12-25-2023 15:04-0400 Body height 165.1 cm [facility] 12-25-2023 15:04-0400 Body mass index (BMI) [Ratio] 32.9 kg/m2 [facility] 12-25-2023 15:04-0400 Body weight 89.81 kg [facility] 12-25-2023 15:04-0400 Diastolic blood pressure 80 mm[Hg] [facility] 12-25-2023 15:04-0400 Heart rate 73 /min [facility] 12-25-2023 15:04-0400 Respiratory rate 18 /min [facility] 12-25-2023 15:04-0400 SaO2% (BldA) [Mass fraction] 97 % [facility] 12-25-2023 15:04-0400 Systolic blood pressure 120 mm[Hg] [facility] 09-18-2023 15:52-0400 Body height 165.1 cm MD Shilpa Lewis Work Phone: [facility] 09-18-2023 15:52-0400 Body mass index (BMI) [Ratio] 31.4 kg/m2 MD Shilpa Lewis Work Phone: [facility] 09-18-2023 15:52-0400 Body weight 85.72 kg MD Shilpa Lewis Work Phone: [facility] 09-18-2023 15:52-0400 Diastolic blood pressure 68 mm[Hg] MD Shilpa Lewis Work Phone: [facility] 09-18-2023 15:52-0400 Heart rate 76 /min MD Shilpa Lewis Work Phone: [facility] 09-18-2023 15:52-0400 Respiratory rate 18 /min MD Shilpa Lewis Work Phone: [facility] 09-18-2023 15:52-0400 SaO2% (BldA) [Mass fraction] 96 % MD Shilpa Lewis Work Phone: [facility] 09-18-2023 15:52-0400 Systolic blood pressure 122 mm[Hg] MD Shilpa Lewis Work Phone: [facility] 07-24-2023 09:16-0500 Body height 165.1 cm MD Shilpa Lewis Work Phone: [facility] 07-24-2023 09:16-0500 Body mass index (BMI) [Ratio] 31.8 kg/m2 MD Shilpa Lewis Work Phone: [facility] 07-24-2023 09:16-0500 Body weight 86.63 kg MD Shilpa Lewis Work Phone: [facility] 07-24-2023 09:16-0500 Diastolic blood pressure 82 mm[Hg] MD Shilpa Lewis Work Phone: [facility] 07-24-2023 09:16-0500 Heart rate 80 /min MD Shilpa Lewis Work Phone: [facility] 07-24-2023 09:16-0500 Respiratory rate 18 /min MD Shilpa Lewis Work Phone: [facility] 07-24-2023 09:16-0500 SaO2% (BldA) [Mass fraction] 97 % MD Shilpa Lewis Work Phone: [facility] 07-24-2023 09:16-0500 Systolic blood pressure 126 mm[Hg] MD Shilpa Lewis Work Phone: [facility] 07-11-2023 15:46-0500 Body height 165.1 cm Nelida Aichholz PLATE FINISHER Work Phone: [facility] 07-11-2023 15:46-0500 Body mass index (BMI) [Ratio] 31.68 kg/m2 Nelida Girardz PLATE FINISHER Work Phone: [facility] 07-11-2023 15:46-0500 Body temperature 97.39 [degF] Nelida Haydenholz PLATE FINISHER Work Phone: [facility] 07-11-2023 15:46-0500 Body weight 86.36 kg Nelida Haydenholz PLATE FINISHER Work Phone: [facility] 07-11-2023 15:46-0500 Diastolic blood pressure 78 mm[Hg] Nelida Haydenholz PLATE FINISHER Work Phone: [facility] 07-11-2023 15:46-0500 Heart rate 96 /min Nelidamakayla Haydenholz PLATE FINISHER Work Phone: [facility] 07-11-2023 15:46-0500 Respiratory rate 18 /min Nelida Haydenholz PLATE FINISHER Work Phone: [facility] 07-11-2023 15:46-0500 SaO2% (BldA) [Mass fraction] 97 % Nelida Haydenholz PLATE FINISHER Work Phone: [facility] 07-11-2023 15:46-0500 Systolic blood pressure 118 mm[Hg] Nelida Haydenholz PLATE FINISHER Work Phone: [facility] 05-01-2023 11:40-0500 Body height 165.1 cm Stephanie Sweet Other [facility] 05-01-2023 11:40-0500 Body mass index (BMI) [Ratio] 31.95 kg/m2 Stephanie Sweet Other [employer] Other 05-01-2023 11:40-0500 Body weight 87.09 kg Stephanie Sweet Other [facility] [employer] Other 05-01-2023 11:40-0500 Body weight 87.08 kg MD Shilpa Lewis Work Phone: [facility] 05-01-2023 11:40-0500 Diastolic blood pressure 82 mm[Hg] Stephanie Trammelloroge Other [facility] 05-01-2023 11:40-0500 Respiratory rate 20 /min Stephanie Sweet Other [facility] [employer] Other 05-01-2023 11:40-0500 SaO2% (BldA) [Mass fraction] 96 % Stephanie Trammelloroge Other [facility] [employer] Other 05-01-2023 11:40-0500 Systolic blood pressure 136 mm[Hg] Stephanie Trammelloroge Other [facility] 04-12-2023 11:44-0500 Body temperature 98.7 [degF] MD Shilpa Lewis Work Phone: [facility] 04-12-2023 11:44-0500 Diastolic blood pressure 69 mm[Hg] MD Shilpa Lewis Work Phone: [facility] 04-12-2023 11:44-0500 Heart rate 82 /min MD Shilpa Lewis Work Phone: [facility] 04-12-2023 11:44-0500 Respiratory rate 18 /min MD Shilpa Lewis Work Phone: [facility] 04-12-2023 11:44-0500 SaO2% (BldA) [Mass fraction] 95 % MD Shilpa Lewis Work Phone: [facility] 04-12-2023 11:44-0500 Systolic blood pressure 113 mm[Hg] MD Shilpa Lewis Work Phone: [facility] 04-12-2023 06:00-0500 Body weight 88.7 kg MD Shilpa Lewis Work Phone: [facility] 04-12-2023 04:33-0500 Inhaled oxygen concentration 21 % MD Shilpa Lewis Work Phone: [facility] 04-10-2023 10:18-0500 Body height 165.1 cm MD Shilpa Lewis Work Phone: [facility] Encounters Encounter Date Encounter Type Care Provider Facility Start: 07-30-2024 End: 07-31-2024 Refill Nelida Daily PLATE FINISHER Work Phone: [facility] Comment on above: Hypothyroidism, unsp ecified type (CMS/HCC); Mixed hyperlipidemia (CMS/HCC); 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); Nausea and vomiting, unspecified vomiting type Start: 07-14-2024 End: 07-14-2024 Refill Nelida Eraz PLATE FINISHER Work Phone: [facility] Comment on above: Tobacco user Start: 07-12-2024 End: 07-12-2024 Refill Nelida Aicchloeholz PLATE FINISHER Work Phone: [facility] Comment on above: Mixed hyperlipidemia (CMS/HCC) (Primary Dx); 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) Start: 07-11-2024 End: 07-11-2024 Clinisync Result Encounter Nelida Daily PLATE FINISHER Work Phone: [facility] Unsolicited Start: 07-11-2024 End: 07-11-2024 Clinisync Result Encounter Nelida Daily PLATE FINISHER Work Phone: [facility] Unsolicited Start: 07-10-2024 End: 07-12-2024 Refill Nelida Aicchloeholz PLATE FINISHER Work Phone: [facility] Comment on above: Type 2 diabetes gerald itus with unspecified complications (CMS/HCC) Start: 07-09-2024 End: 07-10-2024 Refill Nelida Aichholz PLATE FINISHER Work Phone: [facility] Comment on above: Tobacco user Start: 06-16-2024 End: 06-16-2024 Refill Nelida Aichholz PLATE FINISHER Work Phone: [facility] Comment on above: Tobacco user (Primar y Dx) Herpes labialis (Cassie jimmy Dx) Start: 06-12-2024 End: 06-12-2024 Refill Nelida Aichholz PLATE FINISHER Work Phone: [facility] Comment on above: URI, acute Start: 06-08-2024 End: 06-08-2024 Bamboo flowsheet Nelida Aichholz PLATE FINISHER Work Phone: [facility] Start: 06-08-2024 End: 06-08-2024 Bamboo flowsheet Nelida Aichholz PLATE FINISHER Work Phone: [facility] Start: 06-08-2024 End: 06-08-2024 Office outpatient visit 25 minutes Nelida Aichholz PLATE FINISHER Work Phone: [facility] Comment on above: Type 2 [...] Start: 06-01-2024 End: 06-01-2024 Refill Nelida Aichholz PLATE FINISHER Work Phone: [facility] Comment on above: Type 2 diabetes gerald itus with hyperglycemia, without long-term current use of insulin (CMS/HCC) Start: 05-28-2024 End: 05-28-2024 Refill Nelida Aichholz PLATE FINISHER Work Phone: [facility] Comment on above: Mixed hyperlipidemia (CMS/HCC) Start: 05-21-2024 End: 05-21-2024 Refill Nelida Aichholz PLATE FINISHER Work Phone: [facility] Comment on above: URI, acute (Primary Dx) Start: 05-04-2024 End: 05-04-2024 Refill Nelida Aichholz PLATE FINISHER Work Phone: [facility] Comment on above: Mixed hyperlipidemia (CMS/HCC) (Primary Dx) Start: 05-01-2024 End: 05-01-2024 Clinisync Result Encounter Nelida Aichholz PLATE FINISHER Work Phone: [facility] External Department Unsolicited Start: 05-01-2024 End: 05-01-2024 Clinisync Result Encounter Nelida Aichholz PLATE FINISHER Work Phone: [facility] External Department Unsolicited Start: 05-01-2024 End: 05-01-2024 Refill Nelida Aichholz PLATE FINISHER Work Phone: [facility] Comment on above: Type 2 diabetes gerald itus with hyperglycemia, without long-term current use of insulin ([facility]); Anxiety Start: 04-27-2024 End: 04-27-2024 Bamboo flowsheet Nelida Aichholz PLATE FINISHER Work Phone: [facility] Start: 04-27-2024 End: 04-27-2024 Bamboo flowsheet Nelida Aichholz PLATE FINISHER Work Phone: [facility] Start: 04-27-2024 End: 04-27-2024 Office outpatient visit 25 minutes Nelida Aichholz PLATE FINISHER Work Phone: [facility] Comment on above: Type 2 diabetes gerald itus with hyperglycemia, without long-term current use of insulin (CMS/HCC) (Primary Dx); PIPPA (obstructive sleep apnea); Systolic heart failure, unspecified HF chronicity (CMS/HCC); Essential (primary) hypertension ([facility]); Obesity with body mass index (BMI) of 30.0 to 39.9; Hypothyroidism (acquired) ([facility]); Tobacco user; Anxiety; Diabetic polyneuropathy associated with type 2 diabetes mellitus ([facility]/HCC) Start: 04-27-2024 End: 04-27-2024 ambulatory NELIDA AICHHOLZ Not Available Start: 04-24-2024 End: 04-24-2024 ambulatory Stephaniemakayla Marioge Facility:[facility] Start: 04-12-2024 End: 04-12-2024 Refill Nelida Aichholz PLATE FINISHER Work Phone: [facility] Comment on above: Type 2 diabetes gerald itus with hyperglycemia, without long-term current use of insulin ([facility]) Start: 03-26-2024 End: 03-26-2024 Refill Nelida Aichholz PLATE FINISHER Work Phone: [facility] Comment on above: Other hemorrhoids (P rimary Dx); Nausea and vomiting, unspecified vomiting type Start: 03-18-2024 End: 03-18-2024 ambulatory [facility] Work Phone: Start: 03-18-2024 End: 03-18-2024 Patient encounter procedure [facility] Work Phone: Start: 03-08-2024 End: 03-08-2024 Refill Nelida Aichholz PLATE FINISHER Work Phone: [facility] Comment on above: Acute heart failure, unspecified heart failure type ([facility]); Essential (primary) hypertension ([facility]); 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 pectoris ([facility]); Mixed hyperlipidemia ([facility]/HCC) Start: 02-18-2024 End: 02-18-2024 Refill Nelida Aichholz PLATE FINISHER Work Phone: [facility] Comment on above: Nausea and vomiting, unspecified vomiting type (Primary Dx) Start: 02-17-2024 End: 02-17-2024 Refill Nelida Aichholz PLATE FINISHER Work Phone: [facility] Comment on above: Herpes zoster withou t complication (Primary Dx) Start: 01-27-2024 End: 01-27-2024 Clinisync Result Encounter Nelida Aichholz PLATE FINISHER Work Phone: [facility] Unsolicited Start: 01-27-2024 End: 01-27-2024 Clinisync Result Encounter Nelida Ambrosio PLATE FINISHER Work Phone: [facility] Unsolicited Start: 01-23-2024 End: 01-23-2024 Bamboo flowsheet Nelida Girardz PLATE FINISHER Work Phone: [facility] Start: 01-23-2024 End: 01-23-2024 Bamboo flowsheet Nelida Ambrosio PLATE FINISHER Work Phone: [facility] Start: 01-23-2024 End: 01-23-2024 Office outpatient visit 25 minutes Nelida Ambrosio PLATE FINISHER Work Phone: [facility] Comment on above: Type 2 diabetes gerald itus with hyperglycemia, without long-term current use of insulin ([facility]) (Primary Dx); Essential (primary) hypertension ([facility]); Acute cystitis without hematuria Start: 01-23-2024 End: 01-23-2024 ambulatory NELIDA AICHHOLZ Not Available Start: 12-25-2023 End: 12-25-2023 Patient encounter procedure [facility] Work Phone: Start: 11-11-2023 End: 11-11-2023 ambulatory MARYELLEN SAUCEDO Not Available Start: 09-18-2023 End: 09-18-2023 ambulatory MD Shilpa Lewis Work Phone: [facility] Work Phone: Start: 09-18-2023 End: 09-18-2023 Patient encounter procedure MD Shilpa Lewis Work Phone: [facility] Work Phone: Start: 09-10-2023 End: 09-10-2023 ambulatory NELIDA AICHHOLZ Not Available Start: 07-24-2023 End: 07-24-2023 ambulatory MD Shilpa Lewis Work Phone: [facility] Work Phone: Start: 07-24-2023 End: 07-24-2023 Patient encounter procedure MD Shilpa Lewis Work Phone: [facility] Work Phone: Start: 07-12-2023 End: 07-12-2023 Patient encounter procedure MD Shilpa Lewis Work Phone: [facility] Work Phone: Start: 07-12-2023 End: 07-12-2023 ambulatory MD Shilpa Lewis Work Phone: [facility] Work Phone: Start: 07-11-2023 End: 07-11-2023 ambulatory NELIDA DAILY Not Available Start: 07-11-2023 End: 07-11-2023 Office outpatient visit 25 minutes Nelida Daily PLATE FINISHER Work Phone: [facility] Comment on above: Type 2 diabetes gerald itus with hyperglycemia, without long-term current use of insulin (CMS/HCC) (Primary Dx); Obesity with body mass index (BMI) of 30.0 to 39.9; Tobacco user; Essential (primary) hypertension (CMS/HCC); Acute heart failure, unspecified heart failure type (CMS/HCC); Anxiety Start: 07-11-2023 Bamboo flowsheet Nelida Eraz PLATE FINISHER Work Phone: [facility] Start: 07-11-2023 Bamboo flowsheet Nelida Aichholz PLATE FINISHER Work Phone: [facility] Start: 07-06-2023 Clinisync Result Encounter Nelida Daily PLATE FINISHER Work Phone: [facility] External Department Unsolicited Start: 07-06-2023 Clinisync Result Encounter Nelida Daily PLATE FINISHER Work Phone: [facility] External [facility] Unsolicited Start: 06-11-2023 End: 06-11-2023 ambulatory Stephanie Sweet Other [employer] Other Start: 06-11-2023 Telephone encounter Stephanie Davis Cyber Security Consultant Start: 06-10-2023 End: 06-10-2023 ambulatory Stephanie Sweet Other [employer] Other Start: 06-10-2023 Telephone encounter Stephanie LUBIN [facility] Start: 05-08-2023 End: 05-08-2023 ambulatory Stephanie Sweet Other [employer] Other Start: 05-08-2023 Telephone encounter Stephanie LUBIN [facility] Start: 05-01-2023 End: 05-01-2023 ambulatory Stephanie Sweet Other [employer] Other Start: 05-01-2023 Office outpatient vi sit 25 minutes Stephanie Trammelloroge [facility] Start: 05-01-2023 End: 05-01-2023 Patient encounter procedure MD Shilpa Lewis Work Phone: [facility] Work Phone: Start: 04-10-2023 End: 04-12-2023 Evaluation and management of inpatient MD Shilpa Lewis Work Phone: [facility] [place] [facility] Work Phone: Start: 01-04-2022 End: 01-05-[address] SHILPA LEWIS Facility:[facility] Procedures Date Procedure Procedure Detail Performing Clinician Start: 07-11-2024 ALL LIPID PROFILE (FASTING) Nelida Aichholz PLATE FINISHER Work Phone: Start: 07-11-2024 [facility] ALT Nelida Aichh olz PLATE FINISHER Work Phone: Start: 07-11-2024 [facility] AST Nelida Aichh olz PLATE FINISHER Work Phone: Start: 05-01-2024 ALL LIPID PROFILE (FASTING) Nelida Nandahholz PLATE FINISHER Work Phone: Start: 05-01-2024 ALL THYROID STIM HORMONE Nelida Jackelynholz PLATE FINISHER Work Phone: Start: 05-01-2024 [facility] CMP (CMP) (FOR R [facility] USE) Nelida Jackelynholz PLATE FINISHER Work Phone: Start: 04-27-2024 Hemoglobin glycosyla davidson a1c Nelida Jackelynholz PLATE FINISHER Work Phone: Start: 01-27-2024 [facility] MICROALB CREAT R ATIO RANDOM Nelida Jackelynholz PLATE FINISHER Work Phone: Start: 01-27-2024 [facility] UA (CLEAN/CATCH) MICROSCOPIC IF INDICATE Nelida Jackelynholz PLATE FINISHER Work Phone: Start: 12-24-2023 Colonoscopy Nelida Nandahh olz PLATE FINISHER Work Phone: Start: 11-07-2023 Mammography Nelida Nandahh olz PLATE FINISHER Work Phone: Start: 07-06-2023 ALL LIPID PROFILE (FASTING) Nelida Jackelynholz PLATE FINISHER Work Phone: Start: 07-06-2023 [facility] ALT Nelida Jackelynh olz PLATE FINISHER Work Phone: Start: 07-06-2023 [facility] AST Nelida Nandahh olz PLATE FINISHER Work Phone: Start: 04-11-2023 MD Shilpa Lewis [...] Work Phone: Start: 09-19-2020 Mammography Nelida lindsay PLATE FINISHER Work Phone: Start: 10-12-2015 General examination of patient Stephanie Sweet Other Viral screening Stephanie cullen Other Plan of Treatment Date Care Activity Detail Author Start: 12-23-2033 Screening for malign ant neoplasm of colon [facility] Start: 09-27-2025 Screening for malign ant neoplasm of cervix [facility] Start: 01-26-2025 Urine screening for protein Diabetes: Urine Protein Screening [facility] Start: 11-06-2024 Screening for malign ant neoplasm of breast Mammogram [facility] Start: 09-09-2024 End: 07-12-2025 Alanine aminotransferase [Enzymatic activity/volume] in Serum or Plasma ALT Lab Routine Mixed hyperlipidemia (CMS/HCC) Expected: 09/09/2024 (Approximate), Expires: 07/12/2025 [facility] Comment on above: Expected: 09/09/2024 (Approximate), Expires: 07/12/2025 Start: 09-09-2024 End: 07-12-2025 Aspartate aminotransferase [Enzymatic activity/volume] in Serum or Plasma AST Lab Routine Mixed hyperlipidemia ([facility]/HCC) Expected: 09/09/2024 (Approximate), Expires: 07/12/2025 [facility] Comment on above: Expected: 09/09/2024 (Approximate), Expires: 07/12/2025 Start: 09-09-2024 End: 07-12-2025 Lipid 1996 panel - Serum or Plasma Lipid panel Lab Routine Mixed hyperlipidemia (CMS/HCC) Expected: 09/09/2024 (Approximate), Expires: 07/12/2025 [facility] Work Phone: Comment on above: Expected: 09/09/2024 (Approximate), Expires: 07/12/2025 Start: 07-28-2024 Hemoglobin A1c measurement Mary betes: Hemoglobin A1C [facility] Start: 07-05-2024 End: 05-04-2025 Alanine aminotransferase [Enzymatic activity/volume] in Serum or Plasma ALT Lab Routine Mixed hyperlipidemia (CMS/HCC) Expected: 07/05/2024 (Approximate), Expires: 05/04/2025 [facility] Comment on above: Expected: 07/05/2024 (Approximate), Expires: 05/04/2025 Start: 07-05-2024 End: 05-04-2025 Aspartate aminotransferase [Enzymatic activity/volume] in Serum or Plasma AST Lab Routine Mixed hyperlipidemia (CMS/HCC) Expected: 07/05/2024 (Approximate), Expires: 05/04/2025 [facility] Comment on above: Expected: 07/05/2024 (Approximate), Expires: 05/04/2025 Start: 07-05-2024 End: 05-04-2025 Lipid 1996 panel - Serum or Plasma Lipid panel Lab Routine Mixed hyperlipidemia (CMS/HCC) Expected: 07/05/2024 (Approximate), Expires: 05/04/2025 [facility] Work Phone: Comment on above: Expected: 07/05/2024 (Approximate), Expires: 05/04/2025 Start: 06-08-2024 End: 06-08-2024 Patient encounter procedure [facility] Comment on above: Obesity with body ma ss index (BMI) of 30.0 to 39.9 (Primary Dx); Type 2 diabetes mellitus with diabetic polyneuropathy ([facility]); Unspecified systolic (congestive) heart failure ([facility]); Anxiety; Type 2 diabetes mellitus with hyperglycemia, without long-term current use of insulin ([facility]); Tobacco user Start: 04-28-2024 Hemoglobin A1c measurement Mary betes: Hemoglobin A1C [facility] Start: 04-27-2024 End: 04-27-2025 Comprehensive metabolic 2000 panel - Serum or Plasma Comprehensive metabolic panel Lab Routine Essential (primary) hypertension ([facility]/HCC) Type 2 diabetes mellitus with hyperglycemia, without long-term current use of insulin ([facility]/HCC) Expected: 04/27/2024 (Approximate), Expires: 04/27/2025 [facility] Comment on above: Expected: 04/27/2024 (Approximate), Expires: 04/27/2025 Start: 04-27-2024 End: 04-27-2025 Lipid 1996 panel - Serum or Plasma Lipid panel Lab Routine Type 2 diabetes mellitus with hyperglycemia, without long-term current use of insulin ([facility]/HCC) Hypothyroidism (acquired) (CMS/HCC) Expected: 04/27/2024 (Approximate), Expires: 04/27/2025 [facility] Comment on above: Expected: 04/27/2024 (Approximate), Expires: 04/27/2025 Start: 04-27-2024 End: 04-27-2025 Thyrotropin [Units/volume] in Serum or Plasma TSH Lab Routine Hypothyroidism (acquired) (CMS/HCC) Expected: 04/27/2024 (Approximate), Expires: 04/27/2025 [facility] Work Phone: Comment on above: Expected: 04/27/2024 (Approximate), Expires: 04/27/2025 Start: 04-27-2024 End: 04-27-2025 Thyroxine (T4) free [Mass/volume] in Serum or Plasma T4, free Lab Routine Hypothyroidism (acquired) (CMS/HCC) Expected: 04/27/2024 (Approximate), Expires: 04/27/2025 [facility] Comment on above: Expected: 04/27/2024 (Approximate), Expires: 04/27/2025 Start: 04-27-2024 End: 04-27-2024 Patient encounter procedure 04/27/2024 11:45 AM EST Office Visit [facility] [address] [place] [phone] Nelida Ambrosio NP [address] [place] [phone] PIPPA (obstructive sleep apnea) (Primary Dx); Systolic heart failure, unspecified HF chronicity ([facility]); Essential (primary) hypertension ([facility]); Type 2 diabetes mellitus with hyperglycemia, without long-term current use of insulin ([facility]); Obesity with body mass index (BMI) of 30.0 to 39.9; Hypothyroidism (acquired) ([facility]); Tobacco user; Anxiety [facility] Comment on above: PIPPA (obstructive sle ep apnea) (Primary Dx); Systolic heart failure, unspecified HF chronicity (CMS/HCC); Essential (primary) hypertension ([facility]/HCC); Type 2 diabetes mellitus with hyperglycemia, without long-term current use of insulin ([facility]); Obesity with body mass index (BMI) of 30.0 to 39.9; Hypothyroidism (acquired) ([facility]); Tobacco user; Anxiety Start: 04-23-2024 End: 04-23-2024 Patient encounter procedure 04/23/2024 11:45 AM EST Office Visit [facility] [address] [place] [address] Nelida Ambrosio NP [address] [place] [address] [facility] Start: 01-23-2024 End: 01-22-2025 Basic metabolic 1998 panel - Serum or Plasma Basic metabolic panel Lab Routine Type 2 diabetes mellitus with hyperglycemia, without long-term current use of insulin ([facility]) Expected: 01/23/2024 (Approximate), Expires: 01/22/2025 [facility] Work Phone: Comment on above: Expected: 01/23/2024 (Approximate), Expires: 01/22/2025 Start: 01-23-2024 End: 01-22-2025 Hemoglobin A1c/Hemoglobin.total in Blood Hemoglobin A1c Lab Routine Type 2 diabetes mellitus with hyperglycemia, without long-term current use of insulin ([facility]) Expected: 01/23/2024 (Approximate), Expires: 01/22/2025 [facility] Comment on above: Expected: 01/23/2024 (Approximate), Expires: 01/22/2025 Start: 01-23-2024 End: 01-22-2025 Microalbumin/Creatinine panel in random Urine Microalbumin / creatinine, urine ratio Lab Routine Type 2 diabetes mellitus with hyperglycemia, without long-term current use of insulin ([facility]) Expected: 01/23/2024 (Approximate), Expires: 01/22/2025 [facility] Comment on above: Expected: 01/23/2024 (Approximate), Expires: 01/22/2025 Start: 01-23-2024 End: 01-22-2025 Urinalysis complete panel - Urine Urinalysis with reflex microscopic (clean catch) Lab Routine Type 2 diabetes mellitus with hyperglycemia, without long-term current use of insulin (CMS/HCC) Expected: 01/23/2024 (Approximate), Expires: 01/22/2025 [facility] Comment on above: Expected: 01/23/2024 (Approximate), Expires: 01/22/2025 Start: 01-23-2024 End: 01-23-2024 Patient encounter procedure 01/23/2024 11:45 AM EDT Office Visit [facility] [address] [place] [address] Nelida Ambrosio NP [address] [place] [phone] Essential (primary) hypertension (CMS/HCC) (Primary Dx); Acute cystitis without hematuria; Type 2 diabetes mellitus with hyperglycemia, without long-term current use of insulin (CMS/HCC) [facility] Comment on above: Essential (primary) hypertension (CMS/HCC) (Primary Dx); Acute cystitis without hematuria; Type 2 diabetes mellitus with hyperglycemia, without long-term current use of insulin (CMS/HCC) Start: 11-24-2023 Hemoglobin A1c measurement Mary betes: Hemoglobin A1C [facility] Start: 09-09-2023 End: 09-09-2023 Patient encounter procedure 09/09/2023 3:40 PM EDT Office Visit [facility] [address] [place] [address] Nelida Ambrosio NP [address] [place] [phone] [facility] Start: 08-02-2023 Hemoglobin A1c measurement Mary betes: Hemoglobin A1C [facility] Start: 08-02-2023 Screening for malign ant neoplasm of breast Mammogram [facility] Comment on above: Postponed from 09/19 (Other Medical Reasons) Start: 07-11-2023 End: 07-11-2023 Patient encounter procedure 07/11/2023 3:40 PM EST Office Visit [facility] [address] [place] [phone] Nelida Ambrosio, PLATE FINISHER [address] [place] [phone] [facility] Start: 04-12-2023 [facility] Start: 04-10-2023 Hospital admission [facility] Start: 04-10-2023 Sleep disorder assessment [facility] Start: 02-01-2023 Influenza vaccination Influenza Vacc ine (#1) [facility] Start: 11-14-1995 Screening for malign ant neoplasm of cervix Pap Smear [facility] Start: 1993 Urine screening for protein Diabetes: Urine Protein Screening [facility] Start: 1984 Glaucoma screening Diabetes: R etinopathy Screening [facility] Start: 1974 Screening for malign ant neoplasm of colon [facility] Patient Education Coronary Angio plasty (DC) Coronary Stenting (DC) Angina (DC) Chest Pain (DC) Coronary Artery Disease (DC) Coronary artery disease in women Drug Eluting Stents [facility] Work Phone: Patient referral [facility] Work Phone: Payers Date Payer Category Payer Private Health Insurance [facility] [id number] 2023 Self-pay [id number] 2019 Private Health Insurance [id number] 1974 Unknown [id number] 2.16.84 [id number] 1974 Unknown [id number] 2.16.84 [id number] 1974 Unknown [id number] 2.16.84 [id number] 1974 Unknown [id number] 2.16.84 [id number] 1974 Unknown [id number] 2.16.84 [id number] 1974 Unknown [id number] 2.16.84 [id number] 1974 Unknown [id number] 2.16.84 [id number] [facility] [id number] Unknown [id number] 2.16.8 [id number] Unknown [id number] 2.16.8 [id number] Social History Date Type Detail Facility Start: 04-11-2023 End: 03-18-2024 Tobacco smoking status [facility] Smoker (finding) [facility] Start: 1975 Sex Assigned At Female F [facility] Start: 05-20-2023 End: 09-10-2023 Sex Assigned At [facility] Start: 05-20-2023 End: 06-08-2024 Tobacco smoking status [facility] Smoke tobacco daily [facility] History of tobacco use Cigarette Smoker [facility] Start: 05-20-2023 End: 09-10-2023 Cigarettes smoked current (pack per day) - Reported 0.5 [facility] Start: 05-20-2023 End: 06-08-2024 Tobacco use and exposure Smokeless tobacco non-user [facility] Start: 06-19-2023 End: 06-18-2024 Alcohol intake [...] Healthcare Start: 09-18-2023 Tobacco smoking stat us GAIS Ex-smoker (finding) [facility] Medical Equipment Procedure Code Equipment Code Equipment Origin al Text Equipment Identifier Dates CL STENT GARTH FRONTIER 3.5 X 15 FDA Start: 04-11-2023 [id number] Start: 04-17-2023 End: 07-12-2024 USE 1 DAILY [id number] Start: 04-17-2023 CL STENT GARTH FRONTIER 3.5 [...] Metrix Glucose Test Strip) strip Start: 09-18-2023 1 each by Other route Daily [id number] Start: 07-12-2024 End: 10-20-2024 Once a day use [id number] Start: 07-12-2024 Goals Date Patient Goal Desired Activity /State Personal health goal Functional Status Date Assessment Result Facility 04-12-2023 Functional status Patient at Baseline [facility] Work Phone: Mental Status Date Assessment Result Facility 04-12-2023 Cognitive function Cognitive Sta tus Patient at Baseline [facility] Work Phone: Clinical Notes 04-10-2023 to 06-16-2024 Nelida Ambrosio NP - 06/16/2024 8:39 AM Cleve Ambrosio NP - 05/21/2024 12:31 PM Cleve Ambrosio NP - 04/27/2024 12:45 PM Cleve Ambrosio NP - 04/27/2024 11:45 AM ESTPatient Instructions Note Date & Type Note Facility 06-16-2024 History of Presen t illness Narrative Associated Problem(s): Tobacco user The patient has been advised of the risks of continued smoking: stroke, DC, all forms of cancer, lung disease, and [...] SI/HI contact office documented in this encounter [facility] 05-21-2024 History of Presen t illness Narrative Associated Problem(s): URI, acute Neg covid/flu test, symptoms 5 days, worsening, +wheeze, no fever, sinus congestion TM sm fluid, +tender sinus, lungs diminished no wheeze noted, RRR heart documented in this encounter [facility] 04-27-2024 History of Presen t illness Narrative Associated Problem(s): Diabetic polyneuropathy associated with type 2 diabetes mellitus ([facility]) Will trial duloxetine Fu in 6 weeks [...] no compliance problems. Hypertensive end-organ damage includes CAD/DC and heart failure. Diabetes She presents for [...] being taken. She does not see a cleater.Eye exam is not current. Depression Visit Type: [...] Medical History: Diagnosis Date Acute heart failure ([facility]) 05/09/2023 Acute hemorrhoid Anxiety 05/09/2023 Aphthous ulcer Cold sore 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 pectoris ([facility]) 05/09/2023 COVID-19 viremia Depression ([facility]) Diastasis recti Essential (primary) hypertension ([facility]) 05/09/2023 Eustachian salpingitis, left Hypertriglyceridemia ([facility]) hypertriglycerides Hypothyroidism (acquired) ([facility]) 05/09/2023 Left ankle swelling Mixed hyperlipidemia ([facility] 05/09/2023 Obesity with body mass index (BMI) of 30.0 to 39.9 07/11/2023 PIPPA (obstructive sleep apnea) 05/08/2023 Right ovarian cyst Right-sided Pa's palsy Sinusitis, bacterial Toe pain, left Type 2 diabetes mellitus with hyperglycemia, without long-term current use of insulin ([facility]) 05/09/2023 Yeast infection of the vagina 04/29/2023 [...] hyperglycemia, without long-term current use of insulin ([facility]) - Primary Check blood sugars daily, notify [...] Relevant Orders Comprehensive metabolic panel Hypothyroidism (acquired) (CMS/HCC) Continue with levothyroxine Relevant Orders TSH T4, [...] of the risks of continued smoking: stroke, DC, all forms of cancer, lung disease, and [...] of the risks of continued smoking: stroke, DC, all forms of cancer, lung disease, and . Options for quitting smoking include: cold turkey, hypnosis, acupuncture, nicotine replacement meds (gum, lozenges, and patches), Buproprion, and Varenicline. At this time pt is encouraged to evaluate their goals for wanting to quit smoking, and reach out to provider when ready to start this process Associated Problem(s): Hypothyroidism (acquired) (CMS/[facility]) Continue with levothyroxine Associated Problem(s): Obesity with [...] hyperglycemia, without long-term current use of insulin (CMS/[facility]) Check blood sugars daily, notify if <70 [...] use, less fatigue documented in this encounter [facility] 04-27-2024 Instructions Nelida Ambrosoi NP - 04/27/2024 11:45 AM EST We will increase ozempic to 1mg every 7 days, discontinue the 0.5mg dose Stop sertraline, and we will trial duloxetine 30mg daily (depression, anxiety, as well as diabetic nerve pain) documented in this encounter [facility] 02-17-2024 History of Presen t illness Narrative Associated Problem(s): Herpes zoster without complication Rash to right trapezius region, sl tender, noted for 2 days Examined felt to be zoster, will treat with antiviral documented in this encounter [facility] 01-23-2024 History of Presen t illness Narrative [...] Medical History: Diagnosis Date Acute heart failure ([facility]) 05/09/2023 Acute hemorrhoid Anxiety 05/09/2023 Aphthous ulcer Cold sore 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 pectoris ([facility]) 05/09/2023 COVID-19 viremia Depression ([facility]) Diastasis recti Essential (primary) hypertension ([facility]) 05/09/2023 Eustachian salpingitis, left Hypertriglyceridemia ([facility]) hypertriglycerides Hypothyroidism (acquired) ([facility]) 05/09/2023 Left ankle swelling Mixed hyperlipidemia ([facility]) 05/09/2023 Obesity with body mass index (BMI) of 30.0 to 39.9 07/11/2023 PIPPA (obstructive sleep apnea) 05/08/2023 Right ovarian cyst Right-sided Pa's palsy Sinusitis, bacterial Toe pain, left Type 2 diabetes mellitus with hyperglycemia, without long-term current use of insulin ([facility]) 05/09/2023 Yeast infection of the vagina 04/29/2023 [...] current use of insulin (CMS/HCC) Continue with [facility] at 10mg and metfromin Sugars are still [...] urine for diabetes documented in this encounter [facility] 07-24-2023 Evaluation note Authored July 24, 2023 1:06pm Ms Mitchell is a a 47 yr old fe male, [place] [facility] [place] for NSTEMI. Cath and PCI to the LAD was successful. Unsuccessful attempt to cross the RCA lesion. HX of DM type 2, HTN, PIPPA, hyperlipidemia. ECHO 04/10/2023: EF of 25-30% with grade 1 diastolic dysfunction. Trace MR, trace TR. [facility] 04/11/2023 consistent with severe two-vessel CAD-70% proximal LAD and 100% proximal RCA. Status post PCI to proximal LAD with 3.5 x 15 mm [place] NILSA. 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 Assessment: 2v CAD s/p PCI to LAD (presented with NSTEMI) Ischemic cardiomyopathy/Systolic heart failure. Euvolemic Hypertension Hyperlipidemia Diabetes type 2 Active tobacco use Family history of premature CAD Morbid obesity PIPPA not compliant with CPAP Plan: - [facility] 04/11/2023 consistent with severe two-vessel CAD-70% proximal LAD and 100% proximal RCA. Status post PCI to proximal LAD with 3.5 x 15 mm [place] NILSA. 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 - Repeat ECHO 07/12/23 showed improved EF [...] with cardiac rehab. -Follow-up in 2 months. [facility] Work Phone: 1(676) 844-260302-08-2024 History of Present illness Narrative* Nelida Ambrosio NP - 07/11/2023 4:43 PM ESTAssociated Problem(s): Acute heart failure ([facility]/HCC) Continue with cardiology Has echo tomorrow * [...] instructions are 1/2 pill daily, lot # [id number] * ZANE GRIGGS - 07/11/2023 3:40 PM EST Echo tomorrow [employer] on 07/24 Sleep study 07/22 Pt asking [...] Hypertensive end-organ damage includes CAD/DC, heart failure andleft ventricular hypertrophy. 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 pectoris ([facility]) 05/09/2023 COVID-19 viremia Depression ([facility]) Diastasis recti Essential (primary) hypertension ([facility]) 05/09/2023 Eustachian salpingitis, left Hypertriglyceridemia ([facility]) hypertriglycerides Hypothyroidism (acquired) ([facility]) 05/09/2023 Left ankle swelling Mixed hyperlipidemia ([facility]) 05/09/2023 Obesity with body mass index (BMI) of 30.0 to 39.9 07/11/2023 PIPPA (obstructive sleep apnea) 05/08/2023 Right ovarian cyst Right-sided Pa's palsy Sinusitis, bacterial Toe pain, left Type 2 diabetes mellitus with hyperglycemia, without long-term current use of insulin ([facility]) 05/09/2023 Yeast infection of [...] hyperglycemia, without long-term current use of insulin (CMS/[facility]) Will add farxiga 5mg daily, pt reports she just called cardiology they stated that would be fine tostart #3 boxes for Farxiga 10mg given instructions are 1/2 pill daily, lot # [id number] Essential (primary) hypertension (CMS/HCC) - Primary Acute heart failure (CMS/HCC) Continue with cardiology Has echo tomorrow Anxiety Doing ok on sertraline, we will increase buspirone to 7.5mg BID Fu in 2 months Relevant Medications busPIRone (Buspar) 7.5 MG tablet Obesity with body mass index (BMI) of 30.0 to 39.9 Tobacco user [id number] Evaluation note* Encounter Date Diagnosis Assessment Notes Treatment Notes Treatment Clinical Notes May, Ischemic cardiomyopathy (ICD-10 - I25.5) [employer] Other 11-29-2023 Evaluation note* Encounter Date Diagnosis Assessment Notes Treatment Notes Treatment Clinical Notes Apr, History of non-ST elevation myocardial infarction (NSTEMI) (ICD-10 - I25.2) Ms Mitchell is a a 47 yr old female, [place] [facility] [place] for NSTEMI. Cath and PCI to the LAD was successful. Unsuccessful attempt to cross the RCA lesion. HX of DM type 2, HTN, PIPPA, hyperlipidemia. ECHO 04/10/2023: EF of 25-30% with grade 1 diastolic dysfunction. Trace MR, trace TR. [facility] 04/11/2023 consistent with severe two-vessel CAD-70% proximal LAD and 100% proximal RCA. Status post PCI to proximal LAD with 3.5 x 15 mm [place] NILSA. 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 Assessment: 2v CAD s/p PCI to LAD (presented with NSTEMI) Systolic heart failure. Euvolemic Hypertension Hyperlipidemia Diabetes type 2 Active tobacco use Family history of premature CAD Morbid obesity PIPPA not compliant with CPAP Plan: - [facility] 04/11/2023 consistent with severe two-vessel CAD-70% proximal LAD and 100% proximal RCA. Status post PCI to proximal LAD with 3.5 x 15 mm [place] NILSA. 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 -Continue DAPT-aspirin 81 mg daily plus Brilinta [...] I25.5) Apr, Post PTCA (ICD-10 - Z98.61) [employer] Other [id number] Hospital Discharge instructions Additional Instructions Please follow [...] doctor or pharmacist, without first calling the disc jockey who implanted the stent. If you require [...] weight lifting, stair steppers, etc. until the disc jockey approves these activities. Check with the disc jockey on your first follow-up visit. CALL YOUR PHYSICIAN at [phone]: -If bleeding should occur from the catheter insertion site- apply pressure to the site then immediately call us. -Report any fever, redness, drainage, increased swelling, or firmness at the catheter insertion site. Some bruising or slight swelling may be present at the time of discharge. -Should arm or leg become cold, numb, white, or blue, contact the disc jockey immediately. -IF you should experience episodes of [...] is recommended. Please call Central Scheduling at [phone] to schedule your appointment.] The attending disc jockey or [facility] nurse clinician should provide you with specific instructions regarding activity, diet, medications, and further follow up for you. Follow the medication instructions provided on your discharge. If the dosages and instructions on this sheet differ from the dosage and instructions on the bottle, follow the instructions on the bottle. [facility] is not responsible for incorrect prescription information provided by the patient during their visit. Do not stop your medications without consulting your health care provider. Please take the list with you to your next doctor's appointment.[facility] Work Phone: 1(182) 550-286511-10-2023 Discharge summary Author Florentino Kenyon [facility] April 12, 2023 9:01am Note Date/Time April 12, 2023 9:01am [facility] [address] [place] [address] Discharge Summary Signed Patient: Lorraine Mitchell MR#: [id number] : 1975 Acct:[id number] Age/Sex: 47 / F Adm Date: 3 Loc: Room: [address] [place] [address]: Florentino Kenyon MD Copies to: [...] stented with a 3.5 x 15 mm [place] stent at 18 john with a residual [...] doctor or pharmacist, without first calling the disc jockey who implanted the stent. If you require [...] weight lifting, stair steppers, etc. until the disc jockey approves these activities. Check with the disc jockey on your first follow-up visit. CALL YOUR PHYSICIAN at [phone]: -If bleeding should occur from the catheter insertion site- apply pressure to the site then immediately call us. -Report any fever, redness, drainage, increased swelling, or firmness at the catheter insertion site. Some bruising or slight swelling may be present at thetime of discharge. -Should arm or leg become cold, numb, white, or blue, contact the disc jockey immediately. -IF you should experience episodes of [...] is recommended. Please call Central Scheduling at [phone] to schedule your appointment.] The attending disc jockey or [facility] nurse clinician should provide you with specific instructions regarding activity, diet, medications, and further follow up for you. Follow the medication instructions provided on your discharge. If the dosages and instructions on this sheet differ from the dosage and instructions on the bottle, follow the instructions on the bottle. [facility] is not responsible for incorrect prescription information [...] <Electronically signed by Florentino Kenyon MD> 04/12/23900 [facility] Work Phone: 1(623) 943-265811-09-2023 Consult note Author [facility] April 11, 2023 6:12pm Note Date/Time April 11, 2023 6 :12pm [facility] [address] [place] [address] Cardiology Consult Note Signed Patient: Lorraine Mitchell MR#: [id number] : 1975 Acct:[id number] Age/Sex: 47 / F Adm Date: 3 Loc: Room: [address] [place] [address] Type: ADM IN Attending Dr: Florentino Kenyon MD Copies to: MD Shilpa Skinner MD [facility], DO~ Cardiology HPI History of Present Illness [...] alsohad premature CAD. Patient initially presented to [facility] where troponin was positive: 248-256. BNP elevated at 1327. EKG showed sinus tachycardia. Echo today shows EF of 25-30% with grade 1 diastolic dysfunction. Trace MR, trace TR. Troponin trend on arrival [phone] Catheterization was reviewed with primary disc jockey, there is appears to be athrombotic occlusion [...] Lymph # (Auto) 3.2 3.0 (1.00-4.8) x10E3/uL [place] # (Auto) 0.4 0.5 (0.0-0.8) x10E3/uL Eos [...] <Electronically signed by Magali Cortez DO> 04/11/23 1818 [facility] Work Phone: 1(254) 295-458511-09-2023 Progress note Author Stephanie Sweet [facility] April 11, 2023 1:12pm Note Date/Time April 11, 2023 1 :09pm [facility] [address] [place] [address] Cardiology Progress Note Signed Patient: Lorraine Mitchell MR#: [id number] : 1975 Acct:[id number] Age/Sex: 47 / F Adm Date: 3 Loc: 4P Room: [address] [place] [address] Type: ADM IN Attending Dr: Florentino Kenyon [...] alsohad premature CAD. Patient initially presented to [facility] where troponin was positive: 248-256. BNP elevated at 1327. EKG showed sinus tachycardia. Echo today shows EF of 25-30% with grade 1 diastolic dysfunction. Trace MR, trace TR. Interim history 04/11/2023: Troponin continues to uptrend 899-->2200. Reports minimal chest pain today. Heparin drip restarted last night. [facility] today Exam Physical Exam Vital [...] MPV Neut % (Auto) Lymph % (Auto) [place] % (Auto) Eos % (Auto) Baso % (Auto) Nucleat RBC Rel Count Neut # (Auto) Lymph # (Auto) [place] # (Auto) Eos # (Auto) Baso # [...] % (Auto) 56.6 Lymph % (Auto) 36.2 [place] % (Auto) 4.6 Eos % (Auto) 1.2 Baso % (Auto) 1.4 Nucleat RBC Rel Count 0.1 Neut # (Auto) 5.0 Lymph # (Auto) 3.2 [place] # (Auto) 0.4 Eos # (Auto) 0.1 [...] MPV Neut % (Auto) Lymph % (Auto) [place] % (Auto) Eos % (Auto) Baso % (Auto) Nucleat RBC Rel Count Neut # (Auto) Lymph # (Auto) [place] # (Auto) Eos # (Auto) Baso # [...] % (Auto) 59.4 Lymph % (Auto) 33.4 [place] % (Auto) 5.8 Eos % (Auto) 0.9 Baso % (Auto) 0.5 Nucleat RBC Rel Count 0.1 Neut # (Auto) 5.3 Lymph # (Auto) 3.0 [place] # (Auto) 0.5 Eos # (Auto) 0.1 [...] MPV Neut % (Auto) Lymph % (Auto) [place] % (Auto) Eos % (Auto) Baso % (Auto) Nucleat RBC Rel Count Neut # (Auto) Lymph # (Auto) [place] # (Auto) Eos # (Auto) Baso # [...] alsohad premature CAD. Patient initially presented to [facility] where troponin was positive: 248-256. BNP elevated at 1327. EKG showed sinus tachycardia. Echo today shows EF of 25-30% with grade 1 diastolic dysfunction. Trace MR, trace TR. Troponin trend on arrival [phone] Assessment: NSTEMI Systolic heart failure. Euvolemic Hypertension [...] signed by Stephanie Sweet MD> 04/11/23 1312 [facility] Work Phone: 1([phone]) 916-225511-09-2023 Procedure [facility]11-09-2023 Procedure [facility]11-09-2023 Progress note Author Florentino Kenyon [facility] April 11, 2023 9:50am Note Date/Time April 11, 2023 9 :48am [facility] [address] [place] [address] Hospitalist Progress Note Signed Patient: Lorraine Mitchell MR#: [id number] : 1975 Acct:[id number] Age/Sex: 47 / F Adm Date: 3 Loc: 4 Room: [address] [place] [address] Type: ADM IN Attending Dr: Florentino Kenyon [...] signed by Florentino Kenyon MD> 04/11/23 0950 [facility] Work Phone: 1([phone] 370-553211-08-2023 Consult note Author Stephanie Sweet [facility] April 10, 2023 8:00pm Note Date/Time April 10, 2023 7 :53pm [facility] [address] [place] [address] Cardiology Consult Note Signed Patient: Lorraine Mitchell MR#: [id number] : 1975 Acct:[id number] Age/Sex: 47 / F Adm Date: 3 Loc: Room: [address] [place] [address] Type: ADM IN Attending Dr: Florentino Kenyon [...] alsohad premature CAD. Patient initially presented to [facility] where troponin was positive: 248-256. BNP [...] alsohad premature CAD. Patient initially presented to [facility] where troponin was positive: 248-256. BNP elevated at 1327. EKG showed sinus tachycardia. Echo today shows EF of 25-30% with grade 1 diastolic dysfunction. Trace MR, trace TR. Troponin trend on arrival [phone] Assessment: NSTEMI Systolic heart failure. Euvolemic Hypertension [...] <Electronically signed by Stephanie Sweet MD> 04/10/231999 [facility] Work Phone: 1([phone]) 510-620011-08-2023 Evaluation note* Author Stephanie Sweet [facility] Authored July 24, 2023 10:10am Ms Mitchell is a a 47 yr old fe male, [place] at [facility] [place] for NSTEMI. Cath and PCI to the LAD was successful. Unsuccessful attempt to cross the RCA lesion. HX of DM type 2, HTN, PIPPA, hyperlipidemia. ECHO 04/10/2023: EF of 25-30% with grade 1 diastolic dysfunction. Trace MR, trace TR. [facility] 04/11/2023 consistent with severe two-vessel CAD-70% proximal LAD and 100% proximal RCA. Status post PCI to proximal LAD with 3.5 x 15 mm [place] NILSA. 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 Assessment: 2v CAD s/p PCI to LAD (presented with NSTEMI) Ischemic cardiomyopathy/Systolic heart failure. Euvolemic Hypertension Hyperlipidemia Diabetes type 2 Active tobacco use Family history of premature CAD Morbid obesity PIPPA not compliant with CPAP Plan: - [facility] 04/11/2023 consistent with severe two-vessel CAD-70% proximal LAD and 100% proximal RCA. Status post PCI to proximal LAD with 3.5 x 15 mm [place] NILSA. 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 - Repeat ECHO 07/12/23 showed improved EF [...] with cardiac rehab. -Follow-up in 2 months. [facility] Work Phone: [phone]) 709-524711-08-2023 History and physical note Author Florentino Kenyon [facility] April 10, 2023 11:10am Note Date/Time April 10, 2023 1 1:10am [facility] [address] [place] [address] Hospitalist H&P Signed Patient: Lorraine Mitchell MR#: [id number] : 1975 Acct:[id number] Age/Sex: 47 / F Adm Date: 3 Loc: 4P Room: [address] [place] [address] Type: ADM IN Attending Dr: Florentino Kenyon [...] Florentino Kenyon MD> 04/10/23 1110 [facility] Work Phone: Evaluation note* Diagnosis Onset Date Resolution Status Diabetes type 2, controlled acute Hyperlipidemia acute Hypertension acute Nicotine abuse acute Non-STEMI (non-ST elevated myocardial infarction) acute PIPPA (obstructive sleep apnea) acute [facility] Work Phone: evaluation noteNo InformationNort D[place] Other evaluation noteNo assessment information available [facility] Work Phone: Evaluation note* Diagnosis Type 2 diabetes mellitus with hyperglycemia, without long-term current use of insulin ([facility]/HCC)- Primary Obesity with body mass index (BMI) of 30.0 to 39.9 Tobacco user Tobacco use disorder Essential (primary) hypertension (CMS/HCC) Unspecified essential hypertension Acute heart failure, unspecified heart failure type (CMS/HCC) Anxiety Anxiety state, unspecified [facility] Diagnosis Acute heart failure, unspecified heart failure type (CMS/HCC) Essential (primary) hypertension (CMS/HCC) Unspecified essential hypertension 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) Mixed hyperlipidemia [...] sleep apnea) acute Systolic heart failure acute [facility] Work Phone: evalulyujy note* Diagnosis PIPPA (obstructive sleep apnea)- Primary Obstructive sleep apnea (adult) (pediatric) 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)- Primary Essential (primary) hypertension (CMS/HCC) Unspecified essential hypertension Type 2 diabetes mellitus with hyperglycemia, without long-term current use of insulin (CMS/HCC) Anxiety Anxiety state, unspecified Anxiety disorder, unspecified Anxiety state (CMS/HCC) Anxiety state, unspecified Acute heart failure, unspecified heart failure type (CMS/HCC) Type 2 diabetes mellitus with hyperglycemia, without long-term current use of insulin ([facility])- Primary Obesity with body mass index (BMI) of 30.0 to 39.9 Tobacco user Tobacco use disorder Essential (primary) hypertension (CMS/HCC) Unspecified essential hypertension Acute heart failure, unspecified heart failure type (CMS/[facility]) Anxiety Anxiety state, unspecified 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 pectoris (CMS/[facility]) Type 2 diabetes mellitus with hyperglycemia, without long-term current use of insulin (CMS/[facility])- Primary Colon cancer screening Special screening for malignant neoplasms, colon Obesity with body mass index (BMI) of 30.0 to 39.9 Systolic heart failure, unspecified HF chronicity (CMS/[facility]) Essential (primary) hypertension (CMS/[facility]) Unspecified essential hypertension 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 pectoris ([facility]) Tobacco user Tobacco use disorder Type 2 diabetes mellitus with hyperglycemia, without long-term current use of insulin ([facility])- Primary Essential (primary) hypertension ([facility]/HCC) Unspecified essential hypertension Acute cystitis without hematuria Herpes zoster without complication- Primary Other hemorrhoids- Primary Nausea and vomiting, unspecified vomiting type [facility] Diagnosis PIPPA (obstructive sleep apnea)- Primary Obstructive sleep apnea (adult) (pediatric) 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 pectoris ([facility]/HCC)- Primary Essential (primary) hypertension ([facility]) Unspecified essential hypertension Type 2 diabetes mellitus with hyperglycemia, without long-term current use of insulin ([facility]) Anxiety Anxiety state, unspecified Anxiety disorder, unspecified Anxiety state ([facility]/HCC) Anxiety state, unspecified Acute heart failure, unspecified heart failure type (CMS/[facility]) Type 2 diabetes mellitus with hyperglycemia, without long-term current use of insulin ([facility])- Primary Obesity with body mass index (BMI) of 30.0 to 39.9 Tobacco user Tobacco use disorder Essential (primary) hypertension ([facility]/HCC) Unspecified essential hypertension Acute heart failure, unspecified heart failure type (CMS/[facility]) Anxiety Anxiety state, unspecified 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 pectoris ([facility]) Type 2 diabetes mellitus with hyperglycemia, without long-term current use of insulin (CMS/HCC)- Primary Colon cancer screening Special screening for malignant neoplasms, colon Obesity with body mass index (BMI) of 30.0 to 39.9 Systolic heart failure, unspecified HF chronicity (CMS/HCC) Essential (primary) hypertension (CMS/HCC) Unspecified essential hypertension 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) Tobacco user Tobacco use disorder Type 2 diabetes mellitus with hyperglycemia, without long-term current use of insulin (CMS/HCC)- Primary Essential (primary) hypertension (CMS/HCC) Unspecified essential hypertension Acute cystitis without hematuria Herpes zoster without complication- Primary Type 2 diabetes mellitus with hyperglycemia, without long-term current use of insulin (CMS/HCC) documented in this encounter [facility]* Diagnosis PIPPA (obstructive sleep apnea)- Primary Obstructive sleep apnea (adult) (pediatric) 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)- Primary Essential [...] Anxiety state, unspecified 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) Type 2 diabetes mellitus with hyperglycemia, without long-term current use of insulin (CMS/HCC)- Primary Colon cancer screening Special screening for malignant neoplasms, colon Obesity with body mass index (BMI) of 30.0 to 39.9 Systolic heart failure, unspecified HF chronicity (CMS/HCC) Essential (primary) hypertension (CMS/HCC) Unspecified essential hypertension 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) Tobacco user Tobacco use disorder Type 2 diabetes mellitus with hyperglycemia, without long-term current use of insulin (CMS/HCC)- Primary Essential (primary) hypertension ([facility]/HCC) Unspecified essential hypertension Acute cystitis without hematuria Herpes zoster without complication- Primary Type 2 diabetes mellitus with hyperglycemia, without long-term current use of insulin ([facility])- Primary PIPPA (obstructive sleep apnea) Obstructive sleep apnea (adult) (pediatric) Systolic heart failure, unspecified HF chronicity (CMS/HCC) Essential (primary) hypertension ([facility]) Unspecified essential hypertension Obesity with body mass index (BMI) of 30.0 to 39.9 Hypothyroidism (acquired) ([facility]) Unspecified hypothyroidism Tobacco user Tobacco use disorder Anxiety Anxiety state, unspecified Diabetic polyneuropathy associated with type 2 diabetes mellitus ([facility]) documented in this encounter [facility] HealthcareEvaluation note* Diagnosis PIPPA (obstructive sleep apnea)- Primary Obstructive sleep apnea (adult) (pediatric) 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 pectoris ([facility])- Primary Essential (primary) hypertension ([facility]) Unspecified essential hypertension Type 2 diabetes mellitus with hyperglycemia, without long-term current use of insulin ([facility]) Anxiety Anxiety state, unspecified Anxiety disorder, unspecified Anxiety state ([facility]) Anxiety state, unspecified Acute heart failure, unspecified heart failure type ([facility]) Type 2 diabetes mellitus with hyperglycemia, without long-term current use of insulin ([facility])- Primary Obesity with body mass index (BMI) of 30.0 to 39.9 Tobacco user Tobacco use disorder Essential (primary) hypertension ([facility]) Unspecified essential hypertension Acute heart failure, unspecified heart failure type ([facility]) Anxiety Anxiety state, unspecified 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 pectoris ([facility]) Type 2 diabetes mellitus with hyperglycemia, without long-term current use of insulin ([facility])- Primary Colon cancer screening Special screening for malignant neoplasms, colon Obesity with body mass index (BMI) of 30.0 to 39.9 Systolic heart failure, unspecified HF chronicity ([facility]) Essential (primary) hypertension ([facility]) Unspecified essential hypertension 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 pectoris ([facility]) Tobacco user Tobacco use disorder Type 2 diabetes mellitus with hyperglycemia, without long-term current use of insulin ([facility])- Primary Essential (primary) hypertension ([facility]) Unspecified essential hypertension Acute cystitis without hematuria Herpes zoster without complication- Primary Type 2 diabetes mellitus with hyperglycemia, without long-term current use of insulin ([facility])- Primary PIPPA (obstructive sleep apnea) Obstructive sleep apnea (adult) (pediatric) Systolic heart failure, unspecified HF chronicity ([facility]) Essential (primary) hypertension ([facility]) Unspecified essential hypertension Obesity with body mass index (BMI) of 30.0 to 39.9 Hypothyroidism (acquired) ([facility]) Unspecified hypothyroidism Tobacco user Tobacco use disorder Anxiety Anxiety state, unspecified Diabetic polyneuropathy associated with type 2 diabetes mellitus ([facility]) Type 2 diabetes mellitus with hyperglycemia, without long-term current use of insulin ([facility]) Anxiety Anxiety state, unspecified [facility] Diagnosis PIPPA (obstructive sleep apnea)- Primary Obstructive sleep apnea (adult) (pediatric) 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 pectoris ([facility])- Primary Essential (primary) hypertension ([facility]) Unspecified essential hypertension Type 2 diabetes mellitus with hyperglycemia, without long-term current use of insulin ([facility]) Anxiety Anxiety state, unspecified Anxiety disorder, unspecified Anxiety state ([facility]) Anxiety state, unspecified Acute heart failure, unspecified heart failure type ([facility]) Type 2 diabetes mellitus with hyperglycemia, without long-term current use of insulin ([facility])- Primary Obesity with body mass index (BMI) of 30.0 to 39.9 Tobacco user Tobacco use disorder Essential (primary) hypertension ([facility]) Unspecified essential hypertension Acute heart failure, unspecified heart failure type ([facility]) Anxiety Anxiety state, unspecified 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 pectoris ([facility]) Type 2 diabetes mellitus with hyperglycemia, without long-term current use of insulin ([facility])- Primary Colon cancer screening Special screening for malignant neoplasms, colon Obesity with body mass index (BMI) of 30.0 to 39.9 Systolic heart failure, unspecified HF chronicity ([facility]/HCC) Essential (primary) hypertension ([facility]) Unspecified essential hypertension 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 pectoris ([facility]) Tobacco user Tobacco use disorder Type 2 diabetes mellitus with hyperglycemia, without long-term current use of insulin ([facility])- Primary Essential (primary) hypertension ([facility]) Unspecified essential hypertension Acute cystitis without hematuria Herpes zoster without complication- Primary Type 2 diabetes mellitus with hyperglycemia, without long-term current use of insulin ([facility])- Primary PIPPA (obstructive sleep apnea) Obstructive sleep apnea (adult) (pediatric) Systolic heart failure, unspecified HF chronicity ([facility]) Essential (primary) hypertension ([facility]) Unspecified essential hypertension Obesity with body mass index (BMI) of 30.0 to 39.9 Hypothyroidism (acquired) ([facility]) Unspecified hypothyroidism Tobacco user Tobacco use disorder Anxiety Anxiety state, unspecified Diabetic polyneuropathy associated with type 2 diabetes mellitus ([facility]) Mixed hyperlipidemia ([facility])- Primary Mixed hyperlipidemia [facility]* Diagnosis Herpes zoster without complication- Primary documented in [facility] encounter [facility]* Diagnosis Nausea and vomiting, unspecified vomiting type- Primary documented [facility]* Diagnosis Type 2 diabetes mellitus with hyperglycemia, without long-term current use of insulin ([facility] [place] Primary Essential (primary) hypertension ([facility] [facility]) Unspecified essential hypertension Acute cystitis without hematuria documented in this encounter [facility]* Diagnosis PIPPA (obstructive sleep apnea)- Primary Obstructive sleep apnea (adult) (pediatric) 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 pectoris ([facility] [place] [place] Primary Essential (primary) hypertension ([facility]) Unspecified essential hypertension Type 2 diabetes mellitus with hyperglycemia, without long-term current use of insulin ([facility]) Anxiety Anxiety state, unspecified Anxiety disorder, unspecified Anxiety state ([facility]) Anxiety state, unspecified Acute heart failure, unspecified heart failure type ([facility]) Type 2 diabetes mellitus with hyperglycemia, without long-term current use of insulin ([facility])- Primary Obesity with body mass index (BMI) of 30.0 to 39.9 Tobacco user Tobacco use disorder Essential (primary) hypertension ([facility]) Unspecified essential hypertension Acute heart failure, unspecified heart failure type ([facility]) Anxiety Anxiety state, unspecified 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 pectoris ([facility]) Type 2 diabetes mellitus with hyperglycemia, without long-term current use of insulin ([facility] [place] [place] Primary Colon cancer screening Special screening for malignant neoplasms, colon Obesity with body mass index (BMI) of 30.0 to 39.9 Systolic heart failure, unspecified HF chronicity ([facility]) Essential (primary) hypertension ([facility]) Unspecified essential hypertension 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 pectoris ([facility]) Tobacco user Tobacco use disorder Type 2 diabetes mellitus with hyperglycemia, without long-term current use of insulin ([facility])- Primary Essential (primary) hypertension ([facility]) Unspecified essential hypertension Acute cystitis without hematuria Herpes zoster without complication- Primary Type 2 diabetes mellitus with hyperglycemia, without long-term current use of insulin ([facility])- Primary PIPPA (obstructive sleep apnea) Obstructive sleep apnea (adult) (pediatric) Systolic heart failure, unspecified HF chronicity ([facility]) Essential (primary) hypertension ([facility] Unspecified essential hypertension Obesity with body mass index (BMI) of 30.0 to 39.9 Hypothyroidism (acquired) ([facility]) Unspecified hypothyroidism Tobacco user Tobacco use disorder Anxiety Anxiety state, unspecified Diabetic polyneuropathy associated with type 2 diabetes mellitus ([facility]) URI, acute- Primary Acute upper respiratory infections of unspecified site documented in this encounter [facility]* Diagnosis PIPPA (obstructive sleep apnea)- Primary Obstructive sleep apnea (adult) (pediatric) 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 pectoris ([facility])- Primary Essential (primary) hypertension ([facility]) Unspecified essential hypertension Type 2 diabetes mellitus with hyperglycemia, without long-term current use of insulin ([facility]) Anxiety Anxiety state, unspecified Anxiety disorder, unspecified Anxiety state ([facility]) Anxiety state, unspecified Acute heart failure, unspecified heart failure type ([facility]) Type 2 diabetes mellitus with hyperglycemia, without long-term current use of insulin ([facility])- Primary Obesity with body mass index (BMI) of 30.0 to 39.9 Tobacco user Tobacco use disorder Essential (primary) hypertension ([facility]) Unspecified essential hypertension Acute heart failure, unspecified heart failure type ([facility]) Anxiety Anxiety state, unspecified 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 pectoris ([facility]) Type 2 diabetes mellitus with hyperglycemia, without long-term current use of insulin ([facility])- Primary Colon cancer screening Special screening for malignant neoplasms, colon Obesity with body mass index (BMI) of 30.0 to 39.9 Systolic heart failure, unspecified HF chronicity ([facility]) Essential (primary) hypertension ([facility]) Unspecified essential hypertension 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 pectoris ([facility]) Tobacco user Tobacco use disorder Type 2 diabetes mellitus with hyperglycemia, without long-term current use of insulin ([facility])- Primary Essential (primary) hypertension ([facility]) Unspecified essential hypertension Acute cystitis without hematuria Herpes zoster without complication- Primary Type 2 diabetes mellitus with hyperglycemia, without long-term current use of insulin ([facility])- Primary PIPPA (obstructive sleep apnea) Obstructive sleep apnea (adult) (pediatric) Systolic heart failure, unspecified HF chronicity ([facility]) Essential (primary) hypertension ([facility] Unspecified essential hypertension Obesity with body mass index (BMI) of 30.0 to 39.9 Hypothyroidism (acquired) ([facility]) Unspecified hypothyroidism Tobacco user Tobacco use disorder Anxiety Anxiety state, unspecified Diabetic polyneuropathy associated with type 2 diabetes mellitus ([facility]) URI, acute- Primary Acute upper respiratory infections of unspecified site Mixed hyperlipidemia ([facility]) Mixed hyperlipidemia documented in this encounter [facility] note* Diagnosis PIPPA (obstructive sleep apnea)- Primary Obstructive sleep apnea (adult) (pediatric) 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 pectoris ([facility])- Primary Essential (primary) hypertension ([facility]) Unspecified essential hypertension Type 2 diabetes mellitus with hyperglycemia, without long-term current use of insulin ([facility]) Anxiety Anxiety state, unspecified Anxiety disorder, unspecified Anxiety state ([facility]) Anxiety state, unspecified Acute heart failure, unspecified heart failure type ([facility]) Type 2 diabetes mellitus with hyperglycemia, without long-term current use of insulin ([facility])- Primary Obesity with body mass index (BMI) of 30.0 to 39.9 Tobacco user Tobacco use disorder Essential (primary) hypertension ([facility]) Unspecified essential hypertension Acute heart failure, unspecified heart failure type ([facility]) Anxiety Anxiety state, unspecified 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 pectoris ([facility]) Type 2 diabetes mellitus with hyperglycemia, without long-term current use of insulin ([facility])- Primary Colon cancer screening Special screening for malignant neoplasms, colon Obesity with body mass index (BMI) of 30.0 to 39.9 Systolic heart failure, unspecified HF chronicity ([facility]) Essential (primary) hypertension ([facility]) Unspecified essential hypertension 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 pectoris ([facility]) Tobacco user Tobacco use disorder Type 2 diabetes mellitus with hyperglycemia, without long-term current use of insulin ([facility])- Primary Essential (primary) hypertension ([facility]) Unspecified essential hypertension Acute cystitis without hematuria Herpes zoster without complication- Primary Type 2 diabetes mellitus with hyperglycemia, without long-term current use of insulin ([facility])- Primary PIPPA (obstructive sleep apnea) Obstructive sleep apnea (adult) (pediatric) Systolic heart failure, unspecified HF chronicity ([facility]) Essential (primary) hypertension ([facility]) Unspecified essential hypertension Obesity with body mass index (BMI) of 30.0 to 39.9 Hypothyroidism (acquired) ([facility]) Unspecified hypothyroidism Tobacco user Tobacco use disorder Anxiety Anxiety state, unspecified Diabetic polyneuropathy associated with type 2 diabetes mellitus ([facility]) URI, acute- Primary Acute upper respiratory infections of unspecified site Type 2 diabetes mellitus with hyperglycemia, without long-term current use of insulin ([facility]) documented in this encounter [facility]* Diagnosis PIPPA (obstructive sleep apnea)- Primary Obstructive sleep apnea (adult) (pediatric) 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 pectoris ([facility])- Primary Essential (primary) hypertension ([facility]) Unspecified essential hypertension Type 2 diabetes mellitus with hyperglycemia, without long-term current use of insulin ([facility]) Anxiety Anxiety state, unspecified Anxiety disorder, unspecified Anxiety state ([facility]) Anxiety state, unspecified Acute heart failure, unspecified heart failure type ([facility]) Type 2 diabetes mellitus with hyperglycemia, without long-term current use of insulin ([facility])- Primary Obesity with body mass index (BMI) of 30.0 to 39.9 Tobacco user Tobacco use disorder Essential (primary) hypertension ([facility]) Unspecified essential hypertension Acute heart failure, unspecified heart failure type ([facility]) Anxiety Anxiety state, unspecified 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 pectoris ([facility]) Type 2 diabetes mellitus with hyperglycemia, without long-term current use of insulin ([facility])- Primary Colon cancer screening Special screening for malignant neoplasms, colon Obesity with body mass index (BMI) of 30.0 to 39.9 Systolic heart failure, unspecified HF chronicity ([facility]) Essential (primary) hypertension ([facility]) Unspecified essential hypertension 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 pectoris ([facility]) Tobacco user Tobacco use disorder Type 2 diabetes mellitus with hyperglycemia, without long-term current use of insulin ([facility])- Primary Essential (primary) hypertension ([facility]) Unspecified essential hypertension Acute cystitis without hematuria Herpes zoster without complication- Primary Type 2 diabetes mellitus with hyperglycemia, without long-term current use of insulin ([facility])- Primary PIPPA (obstructive sleep apnea) Obstructive sleep apnea (adult) (pediatric) Systolic heart failure, unspecified HF chronicity ([facility]) Essential (primary) hypertension ([facility] Unspecified essential hypertension Obesity with body mass index (BMI) of 30.0 to 39.9 Hypothyroidism (acquired) ([facility]) Unspecified hypothyroidism Tobacco user Tobacco use disorder Anxiety Anxiety state, unspecified Diabetic polyneuropathy associated with type 2 diabetes mellitus ([facility]) Type 2 diabetes mellitus with diabetic polyneuropathy ([facility])- Primary Unspecified systolic (congestive) heart failure ([facility]) Obesity with body mass index (BMI) of 30.0 to 39.9 Anxiety Anxiety state, unspecified Type 2 diabetes mellitus with hyperglycemia, without long-term current use of insulin ([facility]) Tobacco user Tobacco use disorder Family history of cancer Family history of unspecified malignant neoplasm documented in this encounter [facility]* Diagnosis PIPPA (obstructive sleep apnea)- Primary Obstructive sleep apnea (adult) (pediatric) 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 pectoris ([facility])- Primary Essential (primary) hypertension ([facility]) Unspecified essential hypertension Type 2 diabetes mellitus with hyperglycemia, without long-term current use of insulin ([facility]) Anxiety Anxiety state, unspecified Anxiety disorder, unspecified Anxiety state ([facility]) Anxiety state, unspecified Acute heart failure, unspecified heart failure type ([facility]) Type 2 diabetes mellitus with hyperglycemia, without long-term current use of insulin ([facility])- Primary Obesity with body mass index (BMI) of 30.0 to 39.9 Tobacco user Tobacco use disorder Essential (primary) hypertension ([facility]) Unspecified essential hypertension Acute heart failure, unspecified heart failure type ([facility]) Anxiety Anxiety state, unspecified 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 pectoris ([facility]) Type 2 diabetes mellitus with hyperglycemia, without long-term current use of insulin ([facility])- Primary Colon cancer screening Special screening for malignant neoplasms, colon Obesity with body mass index (BMI) of 30.0 to 39.9 Systolic heart failure, unspecified HF chronicity ([facility]) Essential (primary) hypertension ([facility]) Unspecified essential hypertension 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 pectoris ([facility]) Tobacco user Tobacco use disorder Type 2 diabetes mellitus with hyperglycemia, without long-term current use of insulin ([facility])- Primary Essential (primary) hypertension ([facility]) Unspecified essential hypertension Acute cystitis without hematuria Herpes zoster without complication- Primary Type 2 diabetes mellitus with hyperglycemia, without long-term current use of insulin ([facility])- Primary PIPPA (obstructive sleep apnea) Obstructive sleep apnea (adult) (pediatric) Systolic heart failure, unspecified HF chronicity ([facility]) Essential (primary) hypertension ([facility] Unspecified essential hypertension Obesity with body mass index (BMI) of 30.0 to 39.9 Hypothyroidism (acquired) ([facility]) Unspecified hypothyroidism Tobacco user Tobacco use disorder Anxiety Anxiety state, unspecified Diabetic polyneuropathy associated with type 2 diabetes mellitus ([facility]) Type 2 diabetes mellitus with diabetic polyneuropathy ([facility])- Primary Unspecified systolic (congestive) heart failure ([facility]) Obesity with body mass index (BMI) of 30.0 to 39.9 Anxiety Anxiety state, unspecified Type 2 diabetes mellitus with hyperglycemia, without long-term current use of insulin ([facility]) Tobacco user Tobacco use disorder Family history of cancer Family history of unspecified malignant neoplasm URI, acute Acute upper respiratory infections of unspecified site documented in this encounter [facility]* Diagnosis PIPPA (obstructive sleep apnea)- Primary Obstructive sleep apnea (adult) (pediatric) 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 pectoris ([facility])- Primary Essential (primary) hypertension ([facility]) Unspecified essential hypertension Type 2 diabetes mellitus with hyperglycemia, without long-term current use of insulin ([facility]) Anxiety Anxiety state, unspecified Anxiety disorder, unspecified Anxiety state ([facility]) Anxiety state, unspecified Acute heart failure, unspecified heart failure type ([facility]) Type 2 diabetes mellitus with hyperglycemia, without long-term current use of insulin ([facility])- Primary Obesity with body mass index (BMI) of 30.0 to 39.9 Tobacco user Tobacco use disorder Essential (primary) hypertension ([facility]) Unspecified essential hypertension Acute heart failure, unspecified heart failure type ([facility]) Anxiety Anxiety state, unspecified 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 pectoris ([facility]) Type 2 diabetes mellitus with hyperglycemia, without long-term current use of insulin ([facility])- Primary Colon cancer screening Special screening for malignant neoplasms, colon Obesity with body mass index (BMI) of 30.0 to 39.9 Systolic heart failure, unspecified HF chronicity ([facility]) Essential (primary) hypertension ([facility]) Unspecified essential hypertension 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 pectoris ([facility]) Tobacco user Tobacco use disorder Type 2 diabetes mellitus with hyperglycemia, without long-term current use of insulin ([facility])- Primary Essential (primary) hypertension ([facility]) Unspecified essential hypertension Acute cystitis without hematuria Herpes zoster without complication- Primary Type 2 diabetes mellitus with hyperglycemia, without long-term current use of insulin ([facility] [facility] Primary PIPPA (obstructive sleep apnea) Obstructive sleep apnea (adult) (pediatric) Systolic heart failure, unspecified HF chronicity ([facility]) Essential (primary) hypertension ([facility] Unspecified essential hypertension Obesity with body mass index (BMI) of 30.0 to 39.9 Hypothyroidism (acquired) ([facility]) Unspecified hypothyroidism Tobacco user Tobacco use disorder Anxiety Anxiety state, unspecified Diabetic polyneuropathy associated with type 2 diabetes mellitus ([facility]/HCC) Type 2 diabetes mellitus with diabetic polyneuropathy ([facility])- Primary Unspecified systolic (congestive) heart failure ([facility]) Obesity with body mass index (BMI) of 30.0 to 39.9 Anxiety Anxiety state, unspecified Type 2 diabetes mellitus with hyperglycemia, without long-term current use of insulin ([facility]) Tobacco user Tobacco use disorder Family history of cancer Family history of unspecified malignant neoplasm Tobacco user- Primary Tobacco use disorder documented in this encounter [facility]* Diagnosis PIPPA (obstructive sleep apnea)- Primary Obstructive sleep apnea (adult) (pediatric) 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 pectoris ([facility])- Primary Essential (primary) hypertension ([facility]) Unspecified essential hypertension Type 2 diabetes mellitus with hyperglycemia, without long-term current use of insulin ([facility]) Anxiety Anxiety state, unspecified Anxiety disorder, unspecified Anxiety state ([facility]) Anxiety state, unspecified Acute heart failure, unspecified heart failure type ([facility]) Type 2 diabetes mellitus with hyperglycemia, without long-term current use of insulin ([facility])- Primary Obesity with body mass index (BMI) of 30.0 to 39.9 Tobacco user Tobacco use disorder Essential (primary) hypertension ([facility]) Unspecified essential hypertension Acute heart failure, unspecified heart failure type ([facility]) Anxiety Anxiety state, unspecified 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 pectoris ([facility]) Type 2 diabetes mellitus with hyperglycemia, without long-term current use of insulin ([facility])- Primary Colon cancer screening Special screening for malignant neoplasms, colon Obesity with body mass index (BMI) of 30.0 to 39.9 Systolic heart failure, unspecified HF chronicity ([facility]) Essential (primary) hypertension ([facility]) Unspecified essential hypertension 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 pectoris ([facility]) Tobacco user Tobacco use disorder Type 2 diabetes mellitus with hyperglycemia, without long-term current use of insulin ([facility])- Primary Essential (primary) hypertension ([facility]) Unspecified essential hypertension Acute cystitis without hematuria Herpes zoster without complication- Primary Type 2 diabetes mellitus with hyperglycemia, without long-term current use of insulin ([facility])- Primary PIPPA (obstructive sleep apnea) Obstructive sleep apnea (adult) (pediatric) Systolic heart failure, unspecified HF chronicity ([facility]) Essential (primary) hypertension ([facility]) Unspecified essential hypertension Obesity with body mass index (BMI) of 30.0 to 39.9 Hypothyroidism (acquired) ([facility]) Unspecified hypothyroidism Tobacco user Tobacco use disorder Anxiety Anxiety state, unspecified Diabetic polyneuropathy associated with type 2 diabetes mellitus ([facility]) Type 2 diabetes mellitus with diabetic polyneuropathy ([facility]/HCC)- Primary Unspecified systolic (congestive) heart failure (CMS/HCC) Obesity with body mass index (BMI) of 30.0 to 39.9 Anxiety Anxiety state, unspecified Type 2 diabetes mellitus with hyperglycemia, without long-term current use of insulin ([facility]) Tobacco user Tobacco use disorder Family history of cancer Family history of unspecified malignant neoplasm Tobacco user- Primary Tobacco use disorder Herpes labialis- Primary Herpes simplex without mention of complication documented in this encounter [facility]* Diagnosis PIPPA (obstructive sleep apnea)- Primary Obstructive sleep apnea (adult) (pediatric) 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 pectoris ([facility]/HCC)- Primary Essential (primary) hypertension ([facility]) Unspecified essential hypertension Type 2 diabetes mellitus with hyperglycemia, without long-term current use of insulin ([facility]) Anxiety Anxiety state, unspecified Anxiety disorder, unspecified Anxiety state ([facility]) Anxiety state, unspecified Acute heart failure, unspecified heart failure type ([facility]) Type 2 diabetes mellitus with hyperglycemia, without long-term current use of insulin ([facility])- Primary Obesity with body mass index (BMI) of 30.0 to 39.9 Tobacco user Tobacco use disorder Essential (primary) hypertension (CMS/HCC) Unspecified essential hypertension Acute heart failure, unspecified heart failure type ([facility]) Anxiety Anxiety state, unspecified 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 pectoris ([facility]) Type 2 diabetes mellitus with hyperglycemia, without long-term current use of insulin ([facility])- Primary Colon cancer screening Special screening for malignant neoplasms, colon Obesity with body mass index (BMI) of 30.0 to 39.9 Systolic heart failure, unspecified HF chronicity (CMS/HCC) Essential (primary) hypertension ([facility]/HCC) Unspecified essential hypertension 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 pectoris ([facility]) Tobacco user Tobacco use disorder Type 2 diabetes mellitus with hyperglycemia, without long-term current use of insulin ([facility])- Primary Essential (primary) hypertension (CMS/HCC) Unspecified essential hypertension Acute cystitis without hematuria Herpes zoster without complication- Primary Type 2 diabetes mellitus with hyperglycemia, without long-term current use of insulin ([facility])- Primary PIPPA (obstructive sleep apnea) Obstructive sleep apnea (adult) (pediatric) Systolic heart failure, unspecified HF chronicity (CMS/HCC) Essential (primary) hypertension (CMS/HCC) Unspecified essential hypertension Obesity with body mass index (BMI) of 30.0 to 39.9 Hypothyroidism (acquired) (CMS/HCC) Unspecified hypothyroidism Tobacco user Tobacco use disorder [...] apnea (adult) (pediatric) 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)- Primary Essential [...] Anxiety state, unspecified 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) Type 2 diabetes mellitus with hyperglycemia, without long-term current use of insulin (CMS/HCC)- Primary Colon cancer screening Special screening for malignant neoplasms, colon Obesity with body mass index (BMI) of 30.0 to 39.9 Systolic heart failure, unspecified HF chronicity (CMS/HCC) Essential (primary) hypertension (CMS/HCC) Unspecified essential hypertension 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) Tobacco user Tobacco use disorder Type 2 diabetes mellitus with hyperglycemia, without long-term current use of insulin ([facility])- Primary Essential (primary) hypertension ([facility]) Unspecified essential hypertension Acute cystitis without hematuria Herpes zoster without complication- Primary Type 2 diabetes mellitus with hyperglycemia, without long-term current use of insulin ([facility])- Primary PIPPA (obstructive sleep apnea) Obstructive sleep apnea (adult) (pediatric) Systolic heart failure, unspecified HF chronicity ([facility]) Essential (primary) hypertension ([facility]) Unspecified essential hypertension Obesity with body mass index (BMI) of 30.0 to 39.9 Hypothyroidism (acquired) ([facility]) Unspecified hypothyroidism Tobacco user Tobacco use disorder Anxiety Anxiety state, unspecified Diabetic polyneuropathy associated with type 2 diabetes mellitus ([facility]) Type 2 diabetes mellitus with diabetic polyneuropathy ([facility])- Primary Unspecified systolic (congestive) heart failure ([facility]) Obesity with body mass index (BMI) of 30.0 to 39.9 Anxiety Anxiety state, unspecified Type 2 diabetes mellitus with hyperglycemia, without long-term current use of insulin ([facility]) Tobacco user Tobacco use disorder Family history of cancer Family history of unspecified malignant neoplasm Tobacco user- Primary Tobacco use disorder Type 2 diabetes mellitus with unspecified complications ([facility]) documented in this encounter [facility]* Diagnosis PIPPA (obstructive sleep apnea)- Primary Obstructive sleep apnea (adult) (pediatric) 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 pectoris ([facility])- Primary Essential (primary) hypertension ([facility]) Unspecified essential hypertension Type 2 diabetes mellitus with hyperglycemia, without long-term current use of insulin ([facility]) Anxiety Anxiety state, unspecified Anxiety disorder, unspecified Anxiety state ([facility]) Anxiety state, unspecified Acute heart failure, unspecified heart failure type ([facility]) Type 2 diabetes mellitus with hyperglycemia, without long-term current use of insulin ([facility])- Primary Obesity with body mass index (BMI) of 30.0 to 39.9 Tobacco user Tobacco use disorder Essential (primary) hypertension ([facility]) Unspecified essential hypertension Acute heart failure, unspecified heart failure type ([facility]) Anxiety Anxiety state, unspecified 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 pectoris ([facility]) Type 2 diabetes mellitus with hyperglycemia, without long-term current use of insulin ([facility])- Primary Colon cancer screening Special screening for malignant neoplasms, colon Obesity with body mass index (BMI) of 30.0 to 39.9 Systolic heart failure, unspecified HF chronicity ([facility]/HCC) Essential (primary) hypertension ([facility]) Unspecified essential hypertension 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 pectoris ([facility]) Tobacco user Tobacco use disorder Type 2 diabetes mellitus with hyperglycemia, without long-term current use of insulin ([facility])- Primary Essential (primary) hypertension ([facility]) Unspecified essential hypertension Acute cystitis without hematuria Herpes zoster without complication- Primary Type 2 diabetes mellitus with hyperglycemia, without long-term current use of insulin ([facility])- Primary PIPPA (obstructive sleep apnea) Obstructive sleep apnea (adult) (pediatric) Systolic heart failure, unspecified HF chronicity ([facility]) Essential (primary) hypertension ([facility] Unspecified essential hypertension Obesity with body mass index (BMI) of 30.0 to 39.9 Hypothyroidism (acquired) ([facility]) Unspecified hypothyroidism Tobacco user Tobacco use disorder Anxiety Anxiety state, unspecified Diabetic polyneuropathy associated with type 2 diabetes mellitus ([facility]) Type 2 diabetes mellitus with diabetic polyneuropathy ([facility])- Primary Unspecified systolic (congestive) heart failure ([facility]) Obesity with body mass index (BMI) of 30.0 to 39.9 Anxiety Anxiety state, unspecified Type 2 diabetes mellitus with hyperglycemia, without long-term current use of insulin ([facility]) Tobacco user Tobacco use disorder Family history of cancer Family history of unspecified malignant neoplasm Tobacco user- Primary Tobacco use disorder Mixed hyperlipidemia ([facility])- Primary Mixed hyperlipidemia 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 pectoris ([facility]) documented in this encounter [facility]* Diagnosis PIPPA (obstructive sleep apnea)- Primary Obstructive sleep apnea (adult) (pediatric) 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 pectoris ([facility]/HCC)- Primary Essential (primary) hypertension ([facility]) Unspecified essential hypertension Type 2 diabetes mellitus with hyperglycemia, without long-term current use of insulin ([facility]) Anxiety Anxiety state, unspecified Anxiety disorder, unspecified Anxiety state ([facility]) Anxiety state, unspecified Acute heart failure, unspecified heart failure type ([facility]) Type 2 diabetes mellitus with hyperglycemia, without long-term current use of insulin ([facility])- Primary Obesity with body mass index (BMI) of 30.0 to 39.9 Tobacco user Tobacco use disorder Essential (primary) hypertension ([facility]) Unspecified essential hypertension Acute heart failure, unspecified heart failure type ([facility]) Anxiety Anxiety state, unspecified 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 pectoris ([facility]) Type 2 diabetes mellitus with hyperglycemia, without long-term current use of insulin ([facility])- Primary Colon cancer screening Special screening for malignant neoplasms, colon Obesity with body mass index (BMI) of 30.0 to 39.9 Systolic heart failure, unspecified HF chronicity ([facility]) Essential (primary) hypertension ([facility]) Unspecified essential hypertension 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 pectoris ([facility]) Tobacco user Tobacco use disorder Type 2 diabetes mellitus with hyperglycemia, without long-term current use of insulin ([facility])- Primary Essential (primary) hypertension ([facility]) Unspecified essential hypertension Acute cystitis without hematuria Herpes zoster without complication- Primary Type 2 diabetes mellitus with hyperglycemia, without long-term current use of insulin ([facility])- Primary PIPPA (obstructive sleep apnea) Obstructive sleep apnea (adult) (pediatric) Systolic heart failure, unspecified HF chronicity ([facility]) Essential (primary) hypertension ([facility]) Unspecified essential hypertension Obesity with body mass index (BMI) of 30.0 to 39.9 Hypothyroidism (acquired) ([facility]) Unspecified hypothyroidism Tobacco user Tobacco use disorder Anxiety Anxiety state, unspecified Diabetic polyneuropathy associated with type 2 diabetes mellitus ([facility]) Type 2 diabetes mellitus with diabetic polyneuropathy ([facility])- Primary Unspecified systolic (congestive) heart failure ([facility]) Obesity with body mass index (BMI) of 30.0 to 39.9 Anxiety Anxiety state, unspecified Type 2 diabetes mellitus with hyperglycemia, without long-term current use of insulin ([facility]) Tobacco user Tobacco use disorder Family history of cancer Family history of unspecified malignant neoplasm Tobacco user- Primary Tobacco use disorder Tobacco user Tobacco use disorder documented in this encounter [facility]* Diagnosis PIPPA (obstructive sleep apnea)- Primary Obstructive sleep apnea (adult) (pediatric) 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 pectoris ([facility])- Primary Essential (primary) hypertension ([facility]) Unspecified essential hypertension Type 2 diabetes mellitus with hyperglycemia, without long-term current use of insulin ([facility]) Anxiety Anxiety state, unspecified Anxiety disorder, unspecified Anxiety state ([facility]) Anxiety state, unspecified Acute heart failure, unspecified heart failure type ([facility]) Type 2 diabetes mellitus with hyperglycemia, without long-term current use of insulin ([facility])- Primary Obesity with body mass index (BMI) of 30.0 to 39.9 Tobacco user Tobacco use disorder Essential (primary) hypertension ([facility]) Unspecified essential hypertension Acute heart failure, unspecified heart failure type ([facility]) Anxiety Anxiety state, unspecified 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 pectoris ([facility]) Type 2 diabetes mellitus with hyperglycemia, without long-term current use of insulin ([facility])- Primary Colon cancer screening Special screening for malignant neoplasms, colon Obesity with body mass index (BMI) of 30.0 to 39.9 Systolic heart failure, unspecified HF chronicity ([facility]) Essential (primary) hypertension ([facility]) Unspecified essential hypertension 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 pectoris ([facility]) Tobacco user Tobacco use disorder Type 2 diabetes mellitus with hyperglycemia, without long-term current use of insulin ([facility] [facility] Primary Essential (primary) hypertension ([facility]) Unspecified essential hypertension Acute cystitis without hematuria Herpes zoster without complication- Primary Type 2 diabetes mellitus with hyperglycemia, without long-term current use of insulin ([facility])- Primary PIPPA (obstructive sleep apnea) Obstructive sleep apnea (adult) (pediatric) Systolic heart failure, unspecified HF chronicity ([facility]) Essential (primary) hypertension ([facility]) Unspecified essential hypertension Obesity with body mass index (BMI) of 30.0 to 39.9 Hypothyroidism (acquired) ([facility]) Unspecified hypothyroidism Tobacco user Tobacco use disorder Anxiety Anxiety state, unspecified Diabetic polyneuropathy associated with type 2 diabetes mellitus ([facility]) Type 2 diabetes mellitus with diabetic polyneuropathy ([facility])- Primary Unspecified systolic (congestive) heart failure ([facility]) Obesity with body mass index (BMI) of 30.0 to 39.9 Anxiety Anxiety state, unspecified Type 2 diabetes mellitus with hyperglycemia, without long-term current use of insulin ([facility]) Tobacco user Tobacco use disorder Family history of cancer Family history of unspecified malignant neoplasm Tobacco user- Primary Tobacco use disorder Hypothyroidism, unspecified type ([facility]) Mixed hyperlipidemia ([facility]) Mixed hyperlipidemia 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 pectoris ([facility]) Nausea and vomiting, unspecified vomiting type documented in this encounter [facility] general [...] History cath/PCI 04/2023 Hospitalization History NSTEMI 04/2023 [employer] Other History of Present illness Narrative* Nelida Ambrosio, DANICA - 06/08/2024 11:45 AM EST Images from [...] Medical History: Diagnosis Date Acute heart failure ([facility]) 05/09/2023 Acute hemorrhoid Anxiety 05/09/2023 Aphthous ulcer Cold sore 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 pectoris ([facility]) 05/09/2023 COVID-19 viremia Depression ([facility]) Diastasis recti Essential (primary) hypertension ([facility]) 05/09/2023 Eustachian salpingitis, left Hypertriglyceridemia ([facility]) hypertriglycerides Hypothyroidism (acquired) ([facility]) 05/09/2023 Left ankle swelling Mixed hyperlipidemia ([facility]) 05/09/2023 Obesity with body mass index (BMI) of 30.0 to 39.9 07/11/2023 PIPPA (obstructive sleep apnea) 05/08/2023 Right ovarian cyst Right-sided Pa's palsy Sinusitis, bacterial Toe pain, left Type 2 diabetes mellitus with hyperglycemia, without long-term current use of insulin ([facility]) 05/09/2023 Yeast infection of the vagina 04/29/2023 [...] hyperglycemia, without long-term current use of insulin ([facility]) Check blood sugars daily, notify if <70 [...] of the risks of continued smoking: stroke, DC, all forms of cancer, lung disease, and [...] complete hysterectomy We did discuss referral to [facility] for genetic testing She would like to do that * Nelida Ambrosio NP - 06/08/2024 7:07 AM ESTAssociated Problem(s): Tobacco user The patient has been advised of the risks of continued smoking: stroke, DC, all forms of cancer, lung disease, and [...] hyperglycemia, without long-term current use of insulin ([facility]) Check blood sugars daily, notify if <70 [...] much on the DN [facility] HealthcareProgress note Author Stephanie Sweet [facility] April 12, 2023 2:38pm Note Date/Time April 12, 2023 2:30pm [facility] [address] [place] [address] Cardiology Progress Note Signed Patient: Lorraine Mitchell MR#: [id number] : 1975 Acct:[id number] Age/Sex: 47 / F Adm Date: 3 Loc: Room: [address] [place] [address] Type: ADM IN Attending Dr: Florentino Kenyon [...] alsohad premature CAD. Patient initially presented to [facility] where troponin was positive: 248-256. BNP [...] alsohad premature CAD. Patient initially presented to [facility] where troponin was positive: 248-256. BNP elevated at 1327. EKG showed sinus tachycardia. Echo today shows EF of 25-30% with grade 1 diastolic dysfunction. Trace MR, trace TR. Troponin trend on arrival [phone] Assessment: NSTEMI Systolic heart failure. Euvolemic Hypertension Hyperlipidemia Diabetes type 2 Active tobacco use Family history of premature CAD Morbid obesity PIPPA not compliant with CPAP Recommendations: - [facility] 04/11/2023 consistent with severe two-vessel CAD-70% proximal LAD and 100% proximal RCA. Status post PCI to proximal LAD with 3.5 x 15 mm Garth NILSA. 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 Appreciate Dr Cortez's assistance in this case. [...] she change her mind. -2-week follow-up with [facility] cardiology. Documented By: Stephanie Sweet MD 04/12/23 1129 Signed By: <Electronically signed by Stephanie Sweet MD> 04/12/23 1438 [facility] Work Phone: Reason for visit NarrativeCARDIAC REHAB REFERRAL UPDATENort [employer] Other Summary Purpose Family History Relationship Condition [...] infarction) PIPPA (obstructive sleep apnea) Chief Complaint [facility]: 2wks i25.2 I25.5 Chief Complaint [facility]: 2wks i25.2 I25.5 3 month follow up [...] evation myocardial infarction (NSTEMI) (I25.2) Referral Organization [facility] Cardiology Referring Provider First Name Stephanie Referring Provider Last Name Kee Referring Provider Specialty Cardiovascu lar Disease Referred Organization [facility] [place],[address] Referred Provider Specialty Cardiology Referral Priority Routine General Notes Cecilia Acuña 02:15:12 PM >received today, attachments made, waiting for notes to be locked Clinical Notes central scheduling f: [phone] Specialty Diagnoses / Procedures Referred By Contac t Referred To Contact Diagnoses Type 2 diabetes mellitus with hyperglycemia, without long-term current use of insulin ([facility]) Nelida Ambrosio NP [address] [place] [address] Referral ID Status Reason Start Date Expiration Date V isits Requested Visits Authorized [id number] Pending Review 1 1 Additional Source Comments INFORMATION SOURCE (unrecogn ized section and content) DATE CREATED AUTHOR 08/19/2020 [facility] DATE CREATED AUTHOR AUTHOR'S ORGANIZ ATION 01/08/2022 [facility] DATE CREATED AUTHOR AUTHOR'S ORGANIZ ATION 06/11/2024 [facility] DATE CREATED AUTHOR AUTHOR'S ORGANIZ ATION 06/14/2024 [facility] Care Teams (unrecognized sec tion and content) Team Status: Active Member Role Status Dates Shilpa Lewis MD Primary Care Provider Active Team Status: Inactive Member Role Status Dates Shilpa Lewis MD Primary Care Provider Active Florentino Kenyon MD Admit Provider, Attending Provider A ctive 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 Specialty Start Date End Date Thom Weinberg MD [address] [place] [address] PCP - General Family Medicine 05/20/23 Nelida Ambrosio NP [address] [place] [address] Nurse Practitioner Family Medicine 04/19/23 [...] July 12, 2023 End: July 12, 2023 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 Specialty Start Date End Date Thom Weinberg MD [address] [place] [address] PCP - General Family Medicine 05/20/23 Nelida Ambrosio NP [address] [place] [address] Nurse Practitioner Family Medicine 04/19/23 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 Specialty Start Date End Date Thom Weinberg MD [address] [place] [address] PCP - General Family Medicine 05/20/23 Nelida Ambrosio NP [address] [place] [address] Nurse Practitioner Family Medicine 04/19/23 Team Status: [...] September 18, 2023 End: September 18, 2023 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 Specialty Start Date End Date Thom Weinberg MD [address] [place] [address] PCP - General Family Medicine 05/20/23 Nelida Ambrosio NP [address] [place] [address] Nurse Practitioner Family Medicine 04/19/23 Airam Johnson DO [address] [place] [address] Referring Physician Neurology 07/31/23 Team Status: Active Member Role Status Dates Stephanie Sweet MD Fish Tender Active Shilpa Lewis MD Primary Care Provider [...] March 18, 2024 End: March 18, 2024 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 Specialty Start Date End Date Thom Weinberg MD [address] [place] [address] PCP - General Family Medicine 05/20/23 Nelida Ambrosio NP [address] [place] [address] Nurse Practitioner Family Medicine 04/19/23 Airam Johnson DO [address] [place] [address] Referring Physician Neurology 07/31/23 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 Specialty Start Date End Date Thom Weinberg MD [address] [place] [address] PCP - General Family Medicine 05/20/23 Nelida Ambrosio NP [address] [place] [address] Nurse Practitioner Family Medicine 04/19/23 Airam Johnson DO [address] [place], [place] [address] Referring Physician Neurology 07/31/23 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 Specialty Start Date End Date Thom Weinberg MD [address] [place] [address] PCP - General Family Medicine 05/20/23 Nelida Ambrosio NP [address] [place] [address] Nurse Practitioner Family Medicine 04/19/23 Airam Johnson DO [address] [place] [address] Referring Physician Neurology 07/31/23 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 Specialty Start Date End Date Thom Weinberg MD [address] [place] [address] PCP - General Family Medicine 05/20/23 Nelida Ambrosio NP [address] [place] [address] Nurse Practitioner Family Medicine 04/19/23 Airam Johnson DO [address] [place] [address] Referring Physician Neurology 07/31/23 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 Specialty Start Date End Date Thom Weinberg MD [address] [place] [address] PCP - General Family Medicine 05/20/23 Nelida Ambrosio NP [address] [place] [address] Nurse Practitioner Family Medicine 04/19/23 Airam Johnson DO [address] [place] [address] Referring Physician Neurology 07/31/23 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 Specialty Start Date End Date Thom Weinberg MD [address] [place] [address] PCP - General Family Medicine 05/20/23 Nelida Ambrosio NP [address] [place] [address] Nurse Practitioner Family Medicine 04/19/23 Airam Johnson DO [address] [place] [address] Referring Physician Neurology 07/31/23 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 Specialty Start Date End Date Thom Weinberg MD [address] [place] [address] PCP - General Family Medicine 05/20/23 Nelida Ambrosio NP [address] [place] [address] Nurse Practitioner Family Medicine 04/19/23 Airam Johnson DO [address] [place] [address] Referring Physician Neurology 07/31/23 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 Specialty Start Date End Date Thom Weinberg MD [address] [place] [address] PCP - General Family Medicine 05/20/23 Nelida Ambrosio NP [address] [place] [address] Nurse Practitioner Family Medicine 04/19/23 Airam Johnson DO [address] [place] [address] Referring Physician Neurology 07/31/23 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 Specialty Start Date End Date Thom Weinberg MD [address] [place] [address] PCP - General Family Medicine 05/20/23 Nelida Ambrosio NP [address] [place] [address] Nurse Practitioner Family Medicine 04/19/23 Airam Johnson DO [address] [place] [address] Referring Physician Neurology 07/31/23 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 Specialty Start Date End Date Thom Weinberg MD [address] [place] [address] PCP - General Family Medicine 05/20/23 Nelida Ambrosio NP [address] [place] [address] Nurse Practitioner Family Medicine 04/19/23 Airam Johnson DO [address] [place] [address] Referring Physician Neurology 07/31/23 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 Specialty Start Date End Date Thom Weinberg MD [address] [place] [address] PCP - General Family Medicine 05/20/23 Nelida Ambrosio NP [address] [place] [address] Nurse Practitioner Family Medicine 04/19/23 Airam Johnson DO [address] [place] [address] Referring Physician Neurology 07/31/23 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 Specialty Start Date End Date Thom Weinberg MD [address] [place] [address] PCP - General Family Medicine 05/20/23 Nelida Ambrosio NP [address] [place] [address] Nurse Practitioner Family Medicine 04/19/23 Airam Johnson DO [address] [place] [address] Referring Physician Neurology 07/31/23 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 Specialty Start Date End Date Thom Weinberg MD [address] [place] [address] PCP - General Family Medicine 05/20/23 Nelida Ambrosio NP [address] [place] [address] Nurse Practitioner Family Medicine 04/19/23 Airam Johnson DO [address] [place] [address] Referring Physician Neurology 07/31/23 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 Specialty Start Date End Date Thom Weinberg MD [address] [place] [address] PCP - General Family Medicine 05/20/23 Nelida Ambrosio NP [address] [place] [address] Nurse Practitioner Family Medicine 04/19/23 Airam Johnson DO [address] [place] [address] Referring Physician Neurology 07/31/23 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 Specialty Start Date End Date Thom Weinberg MD [address] [place] [address] PCP - General Family Medicine 05/20/23 Nelida Ambrosio NP [address] [place] [address] Nurse Practitioner Family Medicine 04/19/23 Airam Johnson DO [address] [place] [address] Referring Physician Neurology 07/31/23 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 Specialty Start Date End Date Thom Weinberg MD [address] [place] [address] PCP - General Family Medicine 05/20/23 Nelida Ambrosio NP [address] [place] [address] Nurse Practitioner Family Medicine 04/19/23 Airam Johnson DO [address] [place] [address] Referring Physician Neurology 07/31/23 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 Specialty Start Date End Date Thom Weinberg MD [address] [place] [address] PCP - General Family Medicine 05/20/23 Nelida Ambrosio, DANICA [address] [place] [address] Nurse Practitioner Family Medicine 04/19/23 Airam Johnson DO [address] [place] [address] Referring Physician Neurology 07/31/23 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 Specialty Start Date End Date Thom Weinberg MD [address] [place] [address] PCP - General Family Medicine 05/20/23 Nelida Ambrosio NP [address] [place] [address] Nurse Practitioner Family Medicine 04/19/23 Airam Johnson DO [address] [place] [address] Referring Physician Neurology 07/31/23 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 Specialty Start Date End Date Thom Weinberg MD [address] [place] [address] PCP - General Family Medicine 05/20/23 Nelida Ambrosio NP [address] [place] [address] Nurse Practitioner Family Medicine 04/19/23 Airam Johnson DO [address] [place] [address] Referring Physician Neurology 07/31/23 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 Specialty Start Date End Date Thom Weinberg MD [address] [place] [address] PCP - General Family Medicine 05/20/23 Nelida Ambrosio NP [address] [place] [address] Nurse Practitioner Family Medicine 04/19/23 Airam Johnson DO [address] [place], [place] [address] Referring Physician Neurology 07/31/23 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 Specialty Start Date End Date Thom Weinberg MD [address] [place] [address] PCP - General Family Medicine 05/20/23 Nelida Ambrosio NP [address] [place] [address] Nurse Practitioner Family Medicine 04/19/23 Airam Johnson DO [address] [place] [address] Referring Physician Neurology 07/31/23 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 Specialty Start Date End Date Thom Weinberg MD [address] [place] [address] PCP - General Family Medicine 05/20/23 Nelida Ambrosio NP [address] [place] [address] Nurse Practitioner Family Medicine 04/19/23 Airam Johnson DO [address] [place] [address] Referring Physician Neurology 07/31/23 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 Specialty Start Date End Date Thom Weinberg MD [address] [place] [address] PCP - General Family Medicine 05/20/23 Nelida Ambrosio NP [address] [place] [address] Nurse Practitioner Family Medicine 04/19/23 Airam Johnson DO [address] [place] [address] Referring Physician Neurology 07/31/23 REASON FOR VISIT [...] BE BASED ON THE PRIMARY CLINICAL RECORDS. [employer] provides no warranty or guarantee of the accuracy or completeness of information in this document.
[2024-08-08 12:31] LABS: Estimated Average Glucose 123 mg/dL; Glycohemoglobin A1C 5.9 % (4.5-6.2)
[2024-08-08 12:41] LABS: Alanine Aminotransferase 32 U/L (14-59); Albumin Globulin Ratio 1.2; Albumin Level 4.3 g/dL (3.4-5.0); Alkaline Phosphatase 73 U/L (46-116); Anion Gap 10.9; Aspartate Amino Transferase 23 U/L (15-37); BUN Creatinine Ratio 14.3; Bilirubin Total 0.8 mg/dL (0.2-1.0); Calcium 9.5 mg/dL (8.5-10.1); Carbon Dioxide 30.7 mmol/L (21.0-32.0); Chloride 100 mmol/L (98-107); Chol HDL Ratio 2.8; Cholesterol 107 mg/dL (<=200); Estimated GFR (African America >60 (>=60 mL/min/1.73m^2); Estimated GFR (Non-African Ame >60 (>=60 mL/min/1.73m^2); Globulin 3.7 g/dL; Glucose 142 mg/dL (74-106); HDL Cholesterol 38 mg/dL (40-60); Potassium 4.6 mmol/L (3.5-5.1); Sodium 137 mmol/L (136-145); Thyroid Stimulating Hormone 1.355 uIU/mL (0.358-3.740); Triglycerides 97 mg/dL (<=150); VLDL CHOLESTEROL 19.4 mg/dL
[2024-08-08 12:52] LABS: Free T4 1.24 ng/dL (0.76-1.46)
== END 2024-08-08 11:51 | disposition home or self-care (01) ==
LOC: LAB 11:52
PROVIDERS: PCP Nurse Practitioner; Visit Provider Nurse Practitioner
DX: E03.9 Hypothyroidism, unspecified (principal); E11.65 Type 2 diabetes mellitus with hyperglycemia; E78.2 Mixed hyperlipidemia
CPT/HCPCS: 36415; 80053; 80061; 83036; 84439; 84443